=== PATIENT | male | born 1945 | race Caucasian/White ===

== ENCOUNTER 2018-08-11 20:53 | Inpatient (IN) ==
[2018-08-11] MEDS ORDERED: PIPERACILL/TAZOBAC CONSULT ACTIVE PRN (21:04)
[2018-08-11] MEDS ORDERED: VANCOMYCIN HCL 1,500 MG in SODIUM CHLORIDE 0.9% 500 ML IV ONE (21:04)
[2018-08-11] MEDS ORDERED: VANCOMYCIN CONSULT ACTIVE PRN (21:04)
[2018-08-11] MEDS ORDERED: PIPERACILLIN/TAZOBACTAM 4.5 GM/120 ML BAG IV ONE (21:04)
[2018-08-11] MEDS ORDERED: SODIUM CHLORIDE 0.9% 1000ML 2,000 ML IV ONE (21:14)
[2018-08-11] MEDS ORDERED: ACETAMINOPHEN 650 MG SUPP PR STA (21:25)
[2018-08-11 21:35] LABS: Basophils # (auto) 0.01 K/uL (0-0.2); Basophils % (auto) 0.1 %; Eosinophils # (auto) 0.03 K/uL (0-0.5); Eosinophils % (auto) 0.2 %; Hemoglobin 8.9 g/dL (14.0-18.0); Immature Granulocytes # (auto) 0.16 K/uL (0.00-0.02); Immature Granulocytes % (auto) 1.2 %; Lymphocytes # (auto) 0.38 K/uL (1.2-3.4); Mean Corpuscular Hgb Conc 30.7 g/dL (32-36); Mean Corpuscular Volume 86.1 fL (80-100); Mean Platelet Volume 9.4 fL (7.4-10.4); Monocytes # (auto) 0.25 K/uL (0.11-0.59); Monocytes % (auto) 1.9 %; Neutrophils # (auto) 12.05 K/uL (1.4-6.5); Neutrophils % (auto) 93.6 %; Platelet Count 394 K/uL (130-400); RDW Coefficient of Variation 17.3 % (11.5-14.5); RDW Standard Deviation 54.4 fL (36.4-46.3); Red Blood Count 3.37 M/uL (4.7-6.1); White Blood Count 12.88 K/uL (4.8-10.8)
[2018-08-11 21:40] LABS: iSTAT Hemoglobin 9.5 g/dl (14.0-18.0); iSTAT Ionized Calcium 1.08 mmol/l (1.12-1.32)
--- NOTE | 2018-08-11 21:51 | XRay Report ---
SINGLE VIEW PELVIS CLINICAL HISTORY: Sepsis. FINDINGS: 2 AP supine pelvic radiographs are obtained. Correlation is made with lumbar spine radiogra phs dated 11/21/2015. The examination is severely degraded by inability to properly position the patie nt. This degrades diagnostic utility. The skeletal structures are osteopenic. No fracture is clearly identified involving the bony pelvis but this is not well assessed. There is significant deformity at the left hip joint which is markedly flexed. The left proximal femur abuts the dermal surface. The r ight hip is not well evaluated. An IVC filter is in place. Lumbosacral spondylosis is noted. No bowel obstruction is identified. IMPRESSION: 1. Severely compromised examination due to inability to position the patient. This degrades diagnosti c utility. 2. No fracture is clearly identified. 3. Deformity is noted at the left hip joint which abuts the dermal surface. This is not well assessed . Electronically signed by: Prabhjot Sarmiento M.D. 08/11/2018 9:49 PM
--- NOTE | 2018-08-11 21:55 | XRay Report ---
SINGLE VIEW CHEST CLINICAL HISTORY: Sepsis. FINDINGS: 2 AP, portable, upright chest radiographs are compared to study dated 04/23/2018. The examin ation is severely degraded by portable technique and patient rotation. The heart is enlarged and the re is atherosclerotic calcification of the thoracic aorta. The pulmonary vasculature is noncongested. There is bibasilar scarring/atelectasis. No airspace consolidation or large pleural effusion is iden tified. No pneumothorax is seen. The skeletal structures are osteopenic. The bony thorax is grossly i ntact. Marked colonic fecal retention is noted in the upper abdomen. IMPRESSION: Cardiomegaly with no acute cardiopulmonary abnormality. Electronically signed by: Prabhjot Sarmiento M.D. 08/11/2018 9:53 PM
[2018-08-11 22:02] LABS: Alanine Aminotransferase 12 U/L (12-78); Albumin Globulin Ratio 0.3 (0.9-2); Albumin Level 1.4 gm/dl (3.4-5.0); Alkaline Phosphatase 158 U/L (45-117); Aspartate Aminotransferase 26 U/L (15-37); BUN Creatinine Ratio 31.2 (10-20); Bilirubin,Total 0.5 mg/dl (0.2-1); Blood Urea Nitrogen 45 mg/dl (7-18); Calcium 8.1 mg/dl (8.5-10.1); Carbon Dioxide 17 mmol/L (21-32); Chloride 106 mmol/L (98-107); Est GFR (African American) 56.3; Est GFR (Non-African American) 48.6; Globulin 5.2 gm/dl (2.5-4.0); Glucose 92 mg/dl (70-99); Partial Thromboplastin Ratio 1.7; Potassium 4.6 mmol/L (3.5-5.1); Prothrombin Time 28.8 Seconds (9.0-12.0); Sodium 138 mmol/L (136-145); Total Protein 6.6 gm/dl (6.4-8.2)
[2018-08-11 22:07] LABS: Partial Thromboplastin Time 45.1 Seconds (21.0-31.0)
--- NOTE | 2018-08-11 22:13 | CT Scan Report ---
CT SCAN OF THE BRAIN WITHOUT IV CONTRAST CLINICAL HISTORY: Change in mental status. COMPARISON STUDY: CT of the brain dated 11/22/2015. TECHNIQUE: Unenhanced axial CT scan of the brain is performed from the vertex to the skull base. A do se lowering technique was utilized adhering to the principles of ALARA. CT DOSE: 614.27 mGy.cm FINDINGS: Brain parenchyma: There are age-related involutional changes noting mild to moderate subcortical and periventricular microangiopathic change. There is no hemorrhage, mass effect, or evidence of acute t erritorial ischemia by CT criteria. Darden-white matter differentiation is preserved. No extra-axial fl uid collection is seen. Ventricles, sulci, cisterns: Prominent secondary to involutional change. Cavum septum pellucidum is i ncidentally noted. Intracranial vasculature: There is advanced atherosclerotic calcification of the cavernous carotid an d vertebral arteries. Calvarium: Unremarkable. Sinuses and mastoids: The visualized paranasal sinuses are clear. The mastoid air cells are well pneu matized. Orbits: The bony orbits are grossly intact. IMPRESSION: There is no hemorrhage, mass effect, or evidence of acute territorial ischemia by CT krista doshi. Electronically signed by: Prabhjot Sarmiento M.D. 08/11/2018 10:12 PM
[2018-08-11 22:33] LABS: Appearance Urine Cloudy (Clear); Color Urine Red; Protein Urine Positive (Negative); Specific Gravity Urine 1.024 (1.000-1.060)
[2018-08-11 22:37] LABS: Hyaline Casts Urine 0-5 /lpf (0-5); RBC Urine >30 /hpf (0-4)
[2018-08-11 22:38] LABS: Bacteria Urine Negative (Negative); WBC Urine >30 /hpf (0-5)
[2018-08-11 22:39] LABS: Echinocytes 1+; Schistocytes 1+
[2018-08-11] MEDS ORDERED: SODIUM CHLORIDE 0.9% 1000ML 1,000 ML IV ONE (22:51)
[2018-08-11 22:52] LABS: Base Excess VBG -5.2 mEq/L; HCO3 VBG 19 mmol/L; Oxygen Saturation VBG 85.2 %; PCO2 VBG 33 mmHg (38-50); PO2 VBG 54 mmHg; pH VBG 7.39 (7.36-7.41)
[2018-08-11 22:52] LABS: Magnesium 1.9 mg/dl (1.8-2.4)
--- NOTE | 2018-08-11 23:32 | History & Physical Report ---
Date of Service August 11, 2018 Assessment & Plan (1) Severe sepsis: SIRS plus lactic acid elevation plus ARF plus encephalopathy Secondary to decubitus wounds, bilateral hip osteomyelitis on CT initial read Likely incompletely treated infection hx right hip osteomyelitis sp surgery [facility] (04/2018) and antibiotic Rx until (2017) Patient unable to follow-up with [facility] specialists post procedure/antibiotic completion due to financial constraints/transportation difficulties as per family. ? 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 RE bilateral hip osteomyelitis (Patient family requesting for local specialist evaluation if possible given difficulty of transporting patient to [facility] to see specialists from patient's [facility] residence.) Wound care provider consult in a.m. RE decubiti wounds Appropriate to hold antihypertensives for now given borderline BP Hold Coumadin for now RE possible procedure; may need full reversal with hemoglobin drop/blood loss DVT prophylaxis. SCDs while Coumadin on hold if INR less than 2 DNR as per patient's previous wishes as per brother Mr. Dk Winters. (Contact numbers [phone], [phone]) Total critical time was 45 minutes. History of Present Illness Chief Complaint: Low blood pressure, altered mental status as per records Primary Care Provider: [facility] History obtained from patient, family, and records. Patient is not a reliable historian. Medical history significant for hypertension, schizoid personality/mood disorder status post ECT, PE DVT sp IVC filter placement on Coumadin, chronic anemia baseline hemoglobin 8-9, past history of C. difficile, chronic decubitus wounds, osteomyelitis of the right hip status post surgery, hypothyroidism, past tobacco abuse Patient admitted at [facility] February 2018 for septic shock secondary to extensive decubitus ulcers with maggot infiltration. Patient discharged to LTAC March 2018. Left lower extremity DVT noted during LTAC stay. Coumadin initiated. Patient transferred to [facility] in [place] April 2018. Right femoral neck noted to be exposed along w/ bilateral thigh buttock and lower extremity ulcers during stay at the [facility]. Patient subsequently transferred to [facility]. As per admission note, multiple skin ulcers noted on patient's lower extremities and right posterior rib. Right thigh wound was unstageable with R femoral head exposed through gaping wound, left thigh wound had left femoral head exposed. Patient admitted with a diagnosis of osteomyelitis and chronic wounds. Patient subsequently underwent I&D of decubiti wounds and right femoral head resection. Polymicrobial operative cultures grew Enterococcus species, MSSA, gram-negative rods and anaerobes. Patient completed ceftriaxone metronidazole and vancomycin antibiotic courses via PICC line until June 2018. Patient unable to follow-up with [facility] surgeon (Dr. Coelho) postop due to financial constraints posed by transportation difficulties from [place] to [place] as per patient's brother. As per patient's family, patient started on antibiotic for UTI the last few days (ESBL E. coli as per records.) Around dinnertime tonight at the heart side, patient noted to be hypotensive SBP 80s and febrile, temperature 101.7. Patient noted to be dusky in color and respirations shallow as per records. O2 sats 50s on room air as per records. Childs draining bright red blood/dark red clots of blood. At the ER, SBP noted to be 90-100s. IV Vancomycin and Zosyn given for sepsis. 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 Allergies Allergy/AdvReac Type Severity Reaction Status Date / Time iodine Allergy Unknown Unknown Verified 08/11/18 21:43 onion AdvReac Intermediate vomitting Verified 08/11/18 21:43 Home Medications Home Medications Medication Instructions Recorded Confirmed Type Saccharomyces boulardii [Florastor] 250 mg PO BID17 04/23/18 08/11/18 History acetaminophen 325 mg PO Q6H PRN MDD 3 GRAM/24 04/23/18 08/11/18 History HOURS bisacodyl [Dulcolax (bisacodyl)] 10 mg NM DIRECTED PRN 04/23/18 08/11/18 History cholestyramine (with sugar) 4 g PO BID17 04/23/18 08/11/18 History [Questran] divalproex 500 mg PO BID 04/23/18 08/11/18 History folic acid 1 mg PO QAM 04/23/18 08/11/18 History magnesium hydroxide [Milk of 30 ml PO DIRECTED PRN 04/23/18 08/11/18 History Magnesia] melatonin 3 mg PO HS 04/23/18 08/11/18 History oxycodone 5 mg PO Q6 04/23/18 08/11/18 History pantoprazole 40 mg PO QAM 04/23/18 08/11/18 History sodium phosphates [Fleet Enema] 118 ml NM DIRECTED PRN 04/23/18 08/11/18 History thiamine HCl (vitamin B1) 100 mg PO QAM 04/23/18 08/11/18 History tramadol 50 mg PO Q6H PRN 04/23/18 08/11/18 History 2 Daryl Hn Po 60 ml PO ACHS 08/11/18 08/11/18 History Liquid Protein Suppliment 60 ml PO BID17 08/11/18 08/11/18 History baclofen 5 mg PO TIDM 08/11/18 08/11/18 History ergocalciferol (vitamin D2) 50,000 unit PO WK 08/11/18 08/11/18 History [Vitamin D2] fentanyl 1 patch TRANSDERMAL Q72H 08/11/18 08/11/18 History ferrous sulfate 325 mg PO BID17 08/11/18 08/11/18 History metoprolol succinate 50 mg PO QAM 08/11/18 08/11/18 History vitamin B [id number] cit 1 tab PO QAM 08/11/18 08/11/18 History Past Med/Surg History Medical History Anxiety (Chronic) HTN (hypertension) (Chronic) Hypothyroidism (Chronic) GERD (gastroesophageal reflux disease) (Chronic) Anemia (Chronic) Schizoid personality disorder (Chronic) Myocardial infarction (Chronic) Dyslipidemia (Chronic) History of electroconvulsive therapy (Chronic) Bacteremia C. difficile colitis DVT (deep venous thrombosis) Pressure ulcer of ankle, right, unstageable Pressure ulcer of sacral region, stage 4 Surgical History History of appendectomy (Chronic) Family History Other Family history non-contributory Social History Current Living Situation: Personal Care Facility Current Living Situation Comment: [place] Feels Safe at Home: Hesitant to Answer Smoking Status: Unknown if ever smoked Communication Ability: Impaired Review of Systems Could not be reliably obtained Physical Exam 2 Vital Signs (Past 24 Hours): Last Vital Signs Temp 38.6 C H 08/11/18 23:04 Pulse 113 H 08/11/18 23:04 Resp 30 H 08/11/18 23:04 BP 103/59 L 08/11/18 23:04 Pulse Ox 100 08/11/18 23:04 Physical Exam: GENERAL: Comfortable, incoherent, no respiratory distress, cachectic, lying on the right lateral decubitus position SKIN: Pallor , warm HEENT: Pale palpebral conjunctivae, no ptosis, dry buccal mucosa NECK : Supple, no tenderness CHEST : Decreased breath sounds , no tenderness HEART : Tachycardic , no obvious murmurs ABDOMEN: Scaphoid abdomen , nontender EXTREMITIES : Dressing soaked with yellow drainage overlying left hip, minimal left hip tenderness NEUROLOGIC : Incoherent , no facial asymmetry, gait and stance not assessed Results & Data Laboratory Results Laboratory Results WBC 12.88 K/uL (4.8-10.8) H 08/11/18 21:16 RBC 3.37 M/uL (4.7-6.1) L 08/11/18 21:16 Hgb 8.9 g/dL (14.0-18.0) L 08/11/18 21:16 POC Hgb 9.5 g/dl (14.0-18.0) L 08/11/18 21:26 Hct 29.0 % (42-52) L 08/11/18 21:16 POC Hct 28 % (42-52) L 08/11/18 21:26 MCV 86.1 fL (80-100) 08/11/18 21:16 MCH 26.4 pg (25-34) 08/11/18 21:16 MCHC 30.7 g/dL (32-36) L 08/11/18 21:16 RDW Std Deviation 54.4 fL (36.4-46.3) H 08/11/18 21:16 RDW Coeff of Lucila 17.3 % (11.5-14.5) H 08/11/18 21:16 Plt Count 394 K/uL (130-400) 08/11/18 21:16 MPV 9.4 fL (7.4-10.4) 08/11/18 21:16 Immature Gran % (Auto) 1.2 % 08/11/18 21:16 Neut % (Auto) 93.6 % 08/11/18 21:16 Lymph % (Auto) 3.0 % 08/11/18 21:16 Clark % (Auto) 1.9 % 08/11/18 21:16 Eos % (Auto) 0.2 % 08/11/18 21:16 Baso % (Auto) 0.1 % 08/11/18 21:16 Immature Gran # (Auto) 0.16 K/uL (0.00-0.02) H 08/11/18 21:16 Neut # (Auto) 12.05 K/uL (1.4-6.5) H 08/11/18 21:16 Lymph # (Auto) 0.38 K/uL (1.2-3.4) L 08/11/18 21:16 Clark # (Auto) 0.25 K/uL (0.11-0.59) 08/11/18 21:16 Eos # (Auto) 0.03 K/uL (0-0.5) 08/11/18 21:16 Baso # (Auto) 0.01 K/uL (0-0.2) 08/11/18 21:16 Echinocytes 1+ 08/11/18 21:16 Acanthocytes (Spur) 1+ 08/11/18 21:16 Schistocytes 1+ 08/11/18 21:16 PT 28.8 Seconds (9.0-12.0) H 08/11/18 21:16 INR 3.0 (0.9-1.1) H 08/11/18 21:16 APTT 45.1 Seconds (21.0-31.0) H* 08/11/18 21:16 PTT Ratio 1.7 08/11/18 21:16 VBG pH 7.39 (7.36-7.41) 08/11/18 22:41 VBG pCO2 33 mmHg (38-50) L 08/11/18 22:41 VBG pO2 54 mmHg 08/11/18 22:41 VBG HCO3 19 mmol/L 08/11/18 22:41 VBG O2 Saturation 85.2 % 08/11/18 22:41 VBG Base Excess -5.2 mEq/L 08/11/18 22:41 POC Sodium 142 mEq/L (135-144) 08/11/18 21:26 Sodium 138 mmol/L (136-145) 08/11/18 21:16 POC Potassium 5.0 mEq/L (3.3-5.0) 08/11/18 21:26 Potassium 4.6 mmol/L (3.5-5.1) 08/11/18 21:16 POC Chloride 103 mEq/L (101-112) 08/11/18 21:26 Chloride 106 mmol/L (98-107) 08/11/18 21:16 Carbon Dioxide 17 mmol/L (21-32) L 08/11/18 21:16 POC Total CO2 21 mEq/l (24-31) L 08/11/18 21:26 Anion Gap 16.0 (3-11) H 08/11/18 21:16 POC Anion Gap 24.0 mmol/L (16-25) 08/11/18 21:26 POC BUN 38 mg/dl (7-18) H 08/11/18 21:26 BUN 45 mg/dl (7-18) H 08/11/18 21:16 Creatinine 1.43 mg/dl (0.6-1.4) H 08/11/18 21:16 POC Creatinine 1.2 mg/dl (0.6-1.3) 08/11/18 21:26 Est Cr Clr Drug Dosing Not Reportable 08/11/18 21:16 Est GFR ( Amer) 56.3 08/11/18 21:16 Est GFR (Non-Af Amer) 48.6 08/11/18 21:16 BUN/Creatinine Ratio 31.2 (10-20) H 08/11/18 21:16 Glucose 92 mg/dl (70-99) 08/11/18 21:16 POC Glucose (other) 93 mg/dl (70-99) 08/11/18 21:26 Lactate 10.7 mmol/L (0.4-2.0) H* 08/11/18 21:08 Calcium 8.1 mg/dl (8.5-10.1) L 08/11/18 21:16 POC Ioniz Calcium Fam 1.08 mmol/l (1.12-1.32) L 08/11/18 21:26 Magnesium 1.9 mg/dl (1.8-2.4) 08/11/18 21:16 Total Bilirubin 0.5 mg/dl (0.2-1) 08/11/18 21:16 AST 26 U/L (15-37) 08/11/18 21:16 ALT 12 U/L (12-78) 08/11/18 21:16 Alkaline Phosphatase 158 U/L (45-117) H 08/11/18 21:16 Total Protein 6.6 gm/dl (6.4-8.2) 08/11/18 21:16 Albumin 1.4 gm/dl (3.4-5.0) L 08/11/18 21:16 Globulin 5.2 gm/dl (2.5-4.0) H 08/11/18 21:16 Albumin/Globulin Ratio 0.3 (0.9-2) L 08/11/18 21:16 TSH 14.300 uIu/ml (0.300-4.500) H 08/11/18 21:16 Specimen Hemolysis 08/11/18 21:16 Urine Color Red 08/11/18 22:00 Urine Appearance Cloudy (Clear) H 08/11/18 22:00 Urine pH (4.5-7.5) 08/11/18 22:00 Ur Specific Ranger 1.024 (1.000-1.060) 08/11/18 22:00 Urine Protein Positive (Negative) H 08/11/18 22:00 Urine Glucose (UA) (Negative) 08/11/18 22:00 Urine Ketones (Negative) 08/11/18 22:00 Urine Blood (Negative) 08/11/18 22:00 Urine Nitrite (Negative) 08/11/18 22:00 Urine Bilirubin (Negative) 08/11/18 22:00 Urine Urobilinogen (Negative) 08/11/18 22:00 Ur Leukocyte Esterase (Negative) 08/11/18 22:00 Urine RBC >30 /hpf (0-4) H 08/11/18 22:00 Urine WBC >30 /hpf (0-5) H 08/11/18 22:00 Ur Epithelial Cells 0-5 /lpf (0-5) 08/11/18 22:00 Urine Bacteria Negative (Negative) 08/11/18 22:00 Hyaline Casts 0-5 /lpf (0-5) 08/11/18 22:00 Valproic Acid 37 mcg/ml (50-100) L 08/11/18 20:[address] head : No hemorrhage Chest x-ray: Cardiomegaly EKG as per my interpretation: Rate 115, sinus tachycardia, LAD, LAFB, RBBB, ST depression lateral leads CT abdomen pelvis initial read: Mild right hydroureteronephrosis, urinary catheter partially visualized at the penile prosthesis region with regional gas surrounding catheter and soft tissues. Impacted fecal material in the distal rectosigmoid colon with distention of the rectum, no high-grade bowel obstruction. Gallbladder wall calcification. Destruction of the right femoral head and proximal femur with extensive dystrophic calcification, gas within the right hip joint adjacent to the acetabulum thought to be tracking from the posterior decubitus ulceration. Gas tracking noted along the left greater trochanter and adjacent inferior and posterior decubitus ulceration.
[2018-08-11 23:54] LABS: Allen Test Pos (Pos); HCO3 ABG 20 mmol/L (19-24); Oxygen Saturation ABG 92.6 % (90-95); PCO2 ABG 30 mmHg (35-46); PO2 ABG 79 mm/Hg (80-95); pH ABG 7.45 (7.35-7.45)
[2018-08-12 00:31] LABS: Creatine Kinase 160 U/L (39-308)
[2018-08-12] MEDS ORDERED: SODIUM CHLORIDE 0.9% 1000ML 1,000 ML IV STA ×2 (01:13→03:14)
[2018-08-12] MEDS ORDERED: TRAMADOL HCL 50 MG TABLET PO PRN (01:23)
[2018-08-12] MEDS ORDERED: ACETAMINOPHEN 325 MG TAB PO PRN (01:23)
[2018-08-12] MEDS ORDERED: PROCHLORPERAZINE 5 MG in SYRINGE 4 ML IV PRN (01:23)
[2018-08-12] MEDS ORDERED: HYDROmorphone INJ 0.5 MG/0.5 ML SYR IV PRN (01:23)
--- NOTE | 2018-08-12 01:56 | Emergency Department Note ---
Entered by Elio Barnes acting as a scribe for John Albright DO History of Present Illness General Chief complaint: Fever Time Seen by Provider: 08/11/18 20:59 Source: EMS History of Present Illness Onset (ago): hour(s) (prior to arrival) Location: head (unresponsiveness) Severity: severe Pain Consistency: + other (episode) Associated symptoms: + other (not breathing well) The patient is a 73 year old M who presents to the Emergency Room with complaints of an episode of unresponsiveness starting prior to arrival. EMS provided the patients HPI. EMS states that the patient is not breathing well. EMS notes that the patient normally can answer questions with a yes or a no. EMS states that today the patient would not respond to anything and would not respond yes or no. The patients brother was called on the phone and he states that the patients DNR was not signed. He notes that the patient would want everything done. The HPI is limited due to the patients unresponsiveness. Home Medications Home Medications Medication Instructions Recorded Confirmed Type Saccharomyces boulardii [Florastor] 250 mg PO BID17 04/23/18 08/11/18 History acetaminophen 325 mg PO Q6H PRN MDD 3 GRAM/24 04/23/18 08/11/18 History HOURS bisacodyl [Dulcolax (bisacodyl)] 10 mg LA DIRECTED PRN 04/23/18 08/11/18 History cholestyramine (with sugar) 4 g PO BID17 04/23/18 08/11/18 History [Questran] divalproex 500 mg PO BID 04/23/18 08/11/18 History folic acid 1 mg PO QAM 04/23/18 08/11/18 History magnesium hydroxide [Milk of 30 ml PO DIRECTED PRN 04/23/18 08/11/18 History Magnesia] melatonin 3 mg PO HS 04/23/18 08/11/18 History oxycodone 5 mg PO Q6 04/23/18 08/11/18 History pantoprazole 40 mg PO QAM 04/23/18 08/11/18 History sodium phosphates [Fleet Enema] 118 ml LA DIRECTED PRN 04/23/18 08/11/18 History thiamine HCl (vitamin B1) 100 mg PO QAM 04/23/18 08/11/18 History tramadol 50 mg PO Q6H PRN 04/23/18 08/11/18 History 2 Daryl [address] Po 60 ml PO ACHS 08/11/18 08/11/18 History Liquid Protein Suppliment 60 ml PO BID17 08/11/18 08/11/18 History baclofen 5 mg PO TIDM 08/11/18 08/11/18 History ergocalciferol (vitamin D2) 50,000 unit PO WK 08/11/18 08/11/18 History [Vitamin D2] fentanyl 1 patch TRANSDERMAL Q72H 08/11/18 08/11/18 History ferrous sulfate 325 mg PO BID17 08/11/18 08/11/18 History metoprolol succinate 50 mg PO QAM 08/11/18 08/11/18 History vitamin B [id number] cit 1 tab PO QAM 08/11/18 08/11/18 History Allergies Allergy/AdvReac Type Severity Reaction Status Date / Time iodine Allergy Unknown Unknown Verified 08/11/18 21:43 onion AdvReac Intermediate vomitting Verified 08/11/18 21:43 Past Med/Surg History Medical History Anxiety (Chronic) HTN (hypertension) (Chronic) Hypothyroidism (Chronic) GERD (gastroesophageal reflux disease) (Chronic) Anemia (Chronic) Schizoid personality disorder (Chronic) Myocardial infarction (Chronic) Dyslipidemia (Chronic) History of electroconvulsive therapy (Chronic) Bacteremia C. difficile colitis DVT (deep venous thrombosis) Pressure ulcer of ankle, right, unstageable Pressure ulcer of sacral region, stage 4 Surgical History History of appendectomy (Chronic) Family History Other Family history non-contributory Social History Feels Safe at Home: Hesitant to Answer Smoking Status: Unknown if ever smoked Review of Systems See HPI for pertinent positives & negatives. and A total of 10 systems reviewed and were otherwise negative ROS is limited due to patient's unresponsiveness. Physical Exam Vital Signs Vital Signs - 24 hr 08/11/18 20:44 08/11/18 22:06 08/11/18 22:30 Temperature 39.8 C H Temperature Source Rectal Sepsis Recent Fever Within 48 Hours Yes Sepsis New/Unexplained Change in Mental Status Yes Sepsis Action Taken by Nursing Physician Notified Pulse Rate 138 H 109 H Pulse Rate [Apical] 109 H 107 H Respiratory Rate 42 H 25 H 25 H Respiratory Effort / Characteristics Non-Labored Non-Labored Spontaneous Non-Labored Spontaneous Respiratory Depth Normal Normal Normal Blood Pressure 130/80 Blood Pressure [Right Arm] 95/59 L Blood Pressure Mean 96 Blood Pressure Mean [Right Arm] 71 Blood Pressure Position [Right Arm] Lying Pulse Oximetry 98 100 100 Oxygen Delivery Method Room Air Non-rebreather Non-rebreather Non-rebreather Oxygen Flow Rate 10 08/11/18 22:51 08/11/18 23:04 08/11/18 23:05 Temperature 38.6 C H Temperature Source Rectal Sepsis Recent Fever Within 48 Hours Sepsis New/Unexplained Change in Mental Status Sepsis Action Taken by Nursing Pulse Rate 111 H 112 H Pulse Rate [Apical] 113 H Respiratory Rate 30 H 30 H 31 H Respiratory Effort / Characteristics Non-Labored Spontaneous Respiratory Depth Normal Blood Pressure 107/61 103/59 L Blood Pressure [Right Arm] 103/59 L Blood Pressure Mean 76 73 Blood Pressure Mean [Right Arm] 73 Blood Pressure Position [Right Arm] Lying Pulse Oximetry 99 100 100 Oxygen Delivery Method Nasal Cannula Oxygen Flow Rate 5 08/11/18 23:33 08/12/18 00:01 08/12/18 00:10 Temperature Temperature Source Sepsis Recent Fever Within 48 Hours Sepsis New/Unexplained Change in Mental Status Sepsis Action Taken by Nursing Pulse Rate 113 H 118 H 114 H Pulse Rate [Apical] Respiratory Rate 28 H 28 H 24 Respiratory Effort / Characteristics Respiratory Depth Blood Pressure 98/42 L 99/59 L Blood Pressure [Right Arm] Blood Pressure Mean 60 72 Blood Pressure Mean [Right Arm] Blood Pressure Position [Right Arm] Pulse Oximetry 97 96 96 Oxygen Delivery Method Oxygen Flow Rate 08/12/18 00:40 08/12/18 01:00 Temperature 38.7 C H 38.7 C H Temperature Source Rectal Rectal Sepsis Recent Fever Within 48 Hours Sepsis New/Unexplained Change in Mental Status Sepsis Action Taken by Nursing Pulse Rate 112 H Pulse Rate [Apical] Respiratory Rate 30 H Respiratory Effort / Characteristics Respiratory Depth Blood Pressure 96/56 L Blood Pressure [Right Arm] Blood Pressure Mean Blood Pressure Mean [Right Arm] Blood Pressure Position [Right Arm] Pulse Oximetry 97 Oxygen Delivery Method Nasal Cannula Oxygen Flow Rate 4 GENERAL: Laying on left side in position, alert, ill-appearing, on non- rebreather, moaning to painful stimuli EYE EXAM: normal conjunctiva. PERRL and EOM's grossly intact. OROPHARYNX: no exudate, no erythema, lips, buccal mucosa, and tongue normal and mucous membranes are dry NECK: supple, no nuchal rigidity, no adenopathy, non-tender LUNGS: Clear to auscultation. Normal chest wall mechanics HEART: S1 normal and S2 normal, tachycardic ABDOMEN: abdomen soft, non-tender, normo-active bowel, sounds, no masses, no rebound or guarding. BACK: Back is symmetrical on inspection and there is no deformity, no midline tenderness, no CVA tenderness. SKIN: no rashes and no bruising UPPER EXTREMITIES: upper extremities are moving spontaneously. LOWER EXTREMITIES: No pitting edema. Right leg at 90 degree angle with protruding femur, necrosis on the inferior aspect, several open wounds on shins NEURO EXAM: Awake, shakes head yes or no intermittently. Moving upper extremities spontaneously. Lower extremities are held in flexion without movement. Course ED COURSE: Vital signs were reviewed and showed hypotension and tachycardia. The patients medical record was reviewed The above diagnostic studies were performed and reviewed. ED treatments and interventions as stated above. 2052: The patient was evaluated in room B1. A complete history and physical examination was performed. 2148: Upon reevaluation, the patient's blood pressure is coming down. 2300: The patient is still on a non-rebreather. 5: I reviewed the patient's case with Dr. Leonard King, [facility] Hospitalist. He will evaluate the patient for further management. Based on the patients age, coexisting illnesses, exam and lab findings the decision to treat as an inpatient was made. The patient remained stable while under my care. The patient will be evaluated for further management. Administered Medications Miscellaneous Information (Consult) 1 ea N/A UD PRN PRN Reason: Consult Stop: 09/10/18 21:03 Last Admin: 08/11/18 21:14 Dose: 1 ea Discontinued Medications Acetaminophen (Tylenol) 650 mg LA NOW STA Stop: 08/11/18 21:26 Last Admin: 08/11/18 21:35 Dose: 650 mg Piperacillin Sod/Tazobactam Sod (Zosyn) 4.5 gm in 120 mls @ 240 mls/hr IV NOW ONE Stop: 08/11/18 21:33 Last Infusion: 08/11/18 21:56 Dose: 0 mls/hr Admin: 08/11/18 21:14 Dose: 240 mls/hr Vancomycin HCl 1,500 mg/ (Sodium Chloride) 530 mls @ 200 mls/hr IV NOW ONE Stop: 08/11/18 23:42 Last Infusion: 08/12/18 01:01 Dose: 0 mls/hr Admin: 08/11/18 22:02 Dose: 200 mls/hr Sodium Chloride (Nss 1000ml) 2,000 mls @ 999 mls/hr IV .Q2H1M ONE Stop: 08/11/18 23:14 Last Infusion: 08/11/18 21:56 Dose: Admin: 08/11/18 21:35 Dose: 999 mls/hr Sodium Chloride (Nss 1000ml) 1,000 mls @ 999 mls/hr IV .Q1H1M ONE Stop: 08/11/18 23:51 Last Infusion: 08/12/18 00:41 Dose: 0 mls/hr Admin: 08/11/18 23:33 Dose: 999 mls/hr Medical Decision Making Differential Diagnosis Differential diagnosis includes etiologies such as sepsis, UTI, pneumonia, metabolic, electrolyte abnormalities, cardiac sources, intracerebral event, toxicologic, neurologic, as well as others were entertained. Medical Records Attestation: I reviewed the patient's medical records. Home Medications Current Medication List: was personally reviewed by me Laboratory Data Attestation: I reviewed the patient's lab results. Result diagrams: 08/11/18 21:16 08/11/18 21:16 Lab Results 08/11/18 08/11/18 08/11/18 Range/Units 20:42 21:08 21:16 WBC 12.88 H (4.8-10.8) K/uL RBC 3.37 L (4.7-6.1) M/uL Hgb 8.9 L (14.0-18.0) g/dL POC Hgb (14.0-18.0) g/dl Hct 29.0 L (42-52) % POC Hct (42-52) % MCV 86.1 (80-100) fL MCH 26.4 (25-34) pg MCHC 30.7 L (32-36) g/dL RDW Std Deviation 54.4 H (36.4-46.3) fL RDW Coeff of Lucila 17.3 H (11.5-14.5) % Plt Count 394 (130-400) K/uL MPV 9.4 (7.4-10.4) fL Immature Gran % (Auto) 1.2 % Neut % (Auto) 93.6 % Lymph % (Auto) 3.0 % [place] % (Auto) 1.9 % Eos % (Auto) 0.2 % Baso % (Auto) 0.1 % Immature Gran # (Auto) 0.16 H (0.00-0.02) K/uL Neut # (Auto) 12.05 H (1.4-6.5) K/uL Lymph # (Auto) 0.38 L (1.2-3.4) K/uL [place] # (Auto) 0.25 (0.11-0.59) K/uL Eos # (Auto) 0.03 (0-0.5) K/uL Baso # (Auto) 0.01 (0-0.2) K/uL Echinocytes 1+ Acanthocytes (Spur) 1+ Schistocytes 1+ PT (9.0-12.0) Seconds INR (0.9-1.1) APTT (21.0-31.0) Seconds PTT Ratio ABG pH (7.35-7.45) ABG pCO2 (35-46) mmHg ABG pO2 (80-95) mm/Hg ABG HCO3 (19-24) mmol/L ABG O2 Saturation (90-95) % ABG Base Excess (-9-1.8) mEq/L Jean Test (Pos) VBG pH (7.36-7.41) VBG pCO2 (38-50) mmHg VBG pO2 mmHg VBG HCO3 mmol/L VBG O2 Saturation % VBG Base Excess mEq/L Oxygen Given POC Sodium (135-144) mEq/L Sodium (136-145) mmol/L POC Potassium (3.3-5.0) mEq/L Potassium (3.5-5.1) mmol/L POC Chloride (101-112) mEq/L Chloride (98-107) mmol/L Carbon Dioxide (21-32) mmol/L POC Total CO2 (24-31) mEq/l Anion Gap (3-11) POC Anion Gap (16-25) mmol/L POC BUN (7-18) mg/dl BUN (7-18) mg/dl Creatinine (0.6-1.4) mg/dl POC Creatinine (0.6-1.3) mg/dl Est Cr Clr Drug Dosing Est GFR ( Amer) Est GFR (Non-Af Amer) BUN/Creatinine Ratio (10-20) Glucose (70-99) mg/dl POC Glucose (other) (70-99) mg/dl Lactate 10.7 H* (0.4-2.0) mmol/L Calcium (8.5-10.1) mg/dl POC Ioniz Calcium Fam (1.12-1.32) mmol/l Magnesium (1.8-2.4) mg/dl Total Bilirubin (0.2-1) mg/dl AST (15-37) U/L ALT (12-78) U/L Alkaline Phosphatase (45-117) U/L Total Creatine Kinase (39-308) U/L Total Protein (6.4-8.2) gm/dl Albumin (3.4-5.0) gm/dl Globulin (2.5-4.0) gm/dl Albumin/Globulin Ratio (0.9-2) TSH (0.300-4.500) uIu/ml Specimen Hemolysis Urine Color Urine Appearance (Clear) Urine pH (4.5-7.5) Ur Specific [place] (1.000-1.060) Urine Protein (Negative) Urine Glucose (UA) (Negative) Urine Ketones (Negative) Urine Blood (Negative) Urine Nitrite (Negative) Urine Bilirubin (Negative) Urine Urobilinogen (Negative) Ur Leukocyte Esterase (Negative) Urine RBC (0-4) /hpf Urine WBC (0-5) /hpf Ur Epithelial Cells (0-5) /lpf Urine Bacteria (Negative) Hyaline Casts (0-5) /lpf Valproic Acid 37 L (50-100) mcg/ml 08/11/18 08/11/18 08/11/18 Range/Units 21:16 21:16 21:26 WBC (4.8-10.8) K/uL RBC (4.7-6.1) M/uL Hgb (14.0-18.0) g/dL POC Hgb 9.5 L (14.0-18.0) g/dl Hct (42-52) % POC Hct 28 L (42-52) % MCV (80-100) fL MCH (25-34) pg MCHC (32-36) g/dL RDW Std Deviation (36.4-46.3) fL RDW Coeff of Lucila (11.5-14.5) % Plt Count (130-400) K/uL MPV (7.4-10.4) fL Immature Gran % (Auto) % Neut % (Auto) % Lymph % (Auto) % [place] % (Auto) % Eos % (Auto) % Baso % (Auto) % Immature Gran # (Auto) (0.00-0.02) K/uL Neut # (Auto) (1.4-6.5) K/uL Lymph # (Auto) (1.2-3.4) K/uL [place] # (Auto) (0.11-0.59) K/uL Eos # (Auto) (0-0.5) K/uL Baso # (Auto) (0-0.2) K/uL Echinocytes Acanthocytes (Spur) Schistocytes PT 28.8 H (9.0-12.0) Seconds INR 3.0 H (0.9-1.1) APTT 45.1 H* (21.0-31.0) Seconds PTT Ratio 1.7 ABG pH (7.35-7.45) ABG pCO2 (35-46) mmHg ABG pO2 (80-95) mm/Hg ABG HCO3 (19-24) mmol/L ABG O2 Saturation (90-95) % ABG Base Excess (-9-1.8) mEq/L Jean Test (Pos) VBG pH (7.36-7.41) VBG pCO2 (38-50) mmHg VBG pO2 mmHg VBG HCO3 mmol/L VBG O2 Saturation % VBG Base Excess mEq/L Oxygen Given POC Sodium 142 (135-144) mEq/L Sodium 138 (136-145) mmol/L POC Potassium 5.0 (3.3-5.0) mEq/L Potassium 4.6 (3.5-5.1) mmol/L POC Chloride 103 (101-112) mEq/L Chloride 106 (98-107) mmol/L Carbon Dioxide 17 L (21-32) mmol/L POC Total CO2 21 L (24-31) mEq/l Anion Gap 16.0 H (3-11) POC Anion Gap 24.0 (16-25) mmol/L POC BUN 38 H (7-18) mg/dl BUN 45 H (7-18) mg/dl Creatinine 1.43 H (0.6-1.4) mg/dl POC Creatinine 1.2 (0.6-1.3) mg/dl Est Cr Clr Drug Dosing Not Reportable Est GFR ( Amer) 56.3 Est GFR (Non-Af Amer) 48.6 BUN/Creatinine Ratio 31.2 H (10-20) Glucose 92 (70-99) mg/dl POC Glucose (other) 93 (70-99) mg/dl Lactate (0.4-2.0) mmol/L Calcium 8.1 L (8.5-10.1) mg/dl POC Ioniz Calcium Fam 1.08 L (1.12-1.32) mmol/l Magnesium 1.9 (1.8-2.4) mg/dl Total Bilirubin 0.5 (0.2-1) mg/dl AST 26 (15-37) U/L ALT 12 (12-78) U/L Alkaline Phosphatase 158 H (45-117) U/L Total Creatine Kinase 160 (39-308) U/L Total Protein 6.6 (6.4-8.2) gm/dl Albumin 1.4 L (3.4-5.0) gm/dl Globulin 5.2 H (2.5-4.0) gm/dl Albumin/Globulin Ratio 0.3 L (0.9-2) TSH 14.300 H (0.300-4.500) uIu/ml Specimen Hemolysis Urine Color Urine Appearance (Clear) Urine pH (4.5-7.5) Ur Specific [place] (1.000-1.060) Urine Protein (Negative) Urine Glucose (UA) (Negative) Urine Ketones (Negative) Urine Blood (Negative) Urine Nitrite (Negative) Urine Bilirubin (Negative) Urine Urobilinogen (Negative) Ur Leukocyte Esterase (Negative) Urine RBC (0-4) /hpf Urine WBC (0-5) /hpf Ur Epithelial Cells (0-5) /lpf Urine Bacteria (Negative) Hyaline Casts (0-5) /lpf Valproic Acid (50-100) mcg/ml 08/11/18 08/11/18 08/11/18 Range/Units 22:00 22:41 23:44 WBC (4.8-10.8) K/uL RBC (4.7-6.1) M/uL Hgb (14.0-18.0) g/dL POC Hgb (14.0-18.0) g/dl Hct (42-52) % POC Hct (42-52) % MCV (80-100) fL MCH (25-34) pg MCHC (32-36) g/dL RDW Std Deviation (36.4-46.3) fL RDW Coeff of Lucila (11.5-14.5) % Plt Count (130-400) K/uL MPV (7.4-10.4) fL Immature Gran % (Auto) % Neut % (Auto) % Lymph % (Auto) % [place] % (Auto) % Eos % (Auto) % Baso % (Auto) % Immature Gran # (Auto) (0.00-0.02) K/uL Neut # (Auto) (1.4-6.5) K/uL Lymph # (Auto) (1.2-3.4) K/uL [place] # (Auto) (0.11-0.59) K/uL Eos # (Auto) (0-0.5) K/uL Baso # (Auto) (0-0.2) K/uL Echinocytes Acanthocytes (Spur) Schistocytes PT (9.0-12.0) Seconds INR (0.9-1.1) APTT (21.0-31.0) Seconds PTT Ratio ABG pH (7.35-7.45) ABG pCO2 (35-46) mmHg ABG pO2 (80-95) mm/Hg ABG HCO3 (19-24) mmol/L ABG O2 Saturation (90-95) % ABG Base Excess (-9-1.8) mEq/L Jean Test (Pos) VBG pH 7.39 (7.36-7.41) VBG pCO2 33 L (38-50) mmHg VBG pO2 54 mmHg VBG HCO3 19 mmol/L VBG O2 Saturation 85.2 % VBG Base Excess -5.2 mEq/L Oxygen Given POC Sodium (135-144) mEq/L Sodium (136-145) mmol/L POC Potassium (3.3-5.0) mEq/L Potassium (3.5-5.1) mmol/L POC Chloride (101-112) mEq/L Chloride (98-107) mmol/L Carbon Dioxide (21-32) mmol/L POC Total CO2 (24-31) mEq/l Anion Gap (3-11) POC Anion Gap (16-25) mmol/L POC BUN (7-18) mg/dl BUN (7-18) mg/dl Creatinine (0.6-1.4) mg/dl POC Creatinine (0.6-1.3) mg/dl Est Cr Clr Drug Dosing Est GFR ( Amer) Est GFR (Non-Af Amer) BUN/Creatinine Ratio (10-20) Glucose (70-99) mg/dl POC Glucose (other) (70-99) mg/dl Lactate 3.8 H* (0.4-2.0) mmol/L Calcium (8.5-10.1) mg/dl POC Ioniz Calcium Fam (1.12-1.32) mmol/l Magnesium (1.8-2.4) mg/dl Total Bilirubin (0.2-1) mg/dl AST (15-37) U/L ALT (12-78) U/L Alkaline Phosphatase (45-117) U/L Total Creatine Kinase (39-308) U/L Total Protein (6.4-8.2) gm/dl Albumin (3.4-5.0) gm/dl Globulin (2.5-4.0) gm/dl Albumin/Globulin Ratio (0.9-2) TSH (0.300-4.500) uIu/ml Specimen Hemolysis Urine Color Red Urine Appearance Cloudy H (Clear) Urine pH (4.5-7.5) Ur Specific [place] 1.024 (1.000-1.060) Urine Protein Positive H (Negative) Urine Glucose (UA) (Negative) Urine Ketones (Negative) Urine Blood (Negative) Urine Nitrite (Negative) Urine Bilirubin (Negative) Urine Urobilinogen (Negative) Ur Leukocyte Esterase (Negative) Urine RBC >30 H (0-4) /hpf Urine WBC >30 H (0-5) /hpf Ur Epithelial Cells 0-5 (0-5) /lpf Urine Bacteria Negative (Negative) Hyaline Casts 0-5 (0-5) /lpf Valproic Acid (50-100) mcg/ml 01/06/19 Range/Units 23:44 WBC (4.8-10.8) K/uL RBC (4.7-6.1) M/uL Hgb (14.0-18.0) g/dL POC Hgb (14.0-18.0) g/dl Hct (42-52) % POC Hct (42-52) % MCV (80-100) fL MCH (25-34) pg MCHC (32-36) g/dL RDW Std Deviation (36.4-46.3) fL RDW Coeff of Lucila (11.5-14.5) % Plt Count (130-400) K/uL MPV (7.4-10.4) fL Immature Gran % (Auto) % Neut % (Auto) % Lymph % (Auto) % [place] % (Auto) % Eos % (Auto) % Baso % (Auto) % Immature Gran # (Auto) (0.00-0.02) K/uL Neut # (Auto) (1.4-6.5) K/uL Lymph # (Auto) (1.2-3.4) K/uL [place] # (Auto) (0.11-0.59) K/uL Eos # (Auto) (0-0.5) K/uL Baso # (Auto) (0-0.2) K/uL Echinocytes Acanthocytes (Spur) Schistocytes PT (9.0-12.0) Seconds INR (0.9-1.1) APTT (21.0-31.0) Seconds PTT Ratio ABG pH 7.45 (7.35-7.45) ABG pCO2 30 L (35-46) mmHg ABG pO2 79 L (80-95) mm/Hg ABG HCO3 20 (19-24) mmol/L ABG O2 Saturation 92.6 (90-95) % ABG Base Excess -3.4 (-9-1.8) mEq/L Jean Test Pos (Pos) VBG pH (7.36-7.41) VBG pCO2 (38-50) mmHg VBG pO2 mmHg VBG HCO3 mmol/L VBG O2 Saturation % VBG Base Excess mEq/L Oxygen Given RA POC Sodium (135-144) mEq/L Sodium (136-145) mmol/L POC Potassium (3.3-5.0) mEq/L Potassium (3.5-5.1) mmol/L POC Chloride (101-112) mEq/L Chloride (98-107) mmol/L Carbon Dioxide (21-32) mmol/L POC Total CO2 (24-31) mEq/l Anion Gap (3-11) POC Anion Gap (16-25) mmol/L POC BUN (7-18) mg/dl BUN (7-18) mg/dl Creatinine (0.6-1.4) mg/dl POC Creatinine (0.6-1.3) mg/dl Est Cr Clr Drug Dosing Est GFR ( Amer) Est GFR (Non-Af Amer) BUN/Creatinine Ratio (10-20) Glucose (70-99) mg/dl POC Glucose (other) (70-99) mg/dl Lactate (0.4-2.0) mmol/L Calcium (8.5-10.1) mg/dl POC Ioniz Calcium Fam (1.12-1.32) mmol/l Magnesium (1.8-2.4) mg/dl Total Bilirubin (0.2-1) mg/dl AST (15-37) U/L ALT (12-78) U/L Alkaline Phosphatase (45-117) U/L Total Creatine Kinase (39-308) U/L Total Protein (6.4-8.2) gm/dl Albumin (3.4-5.0) gm/dl Globulin (2.5-4.0) gm/dl Albumin/Globulin Ratio (0.9-2) TSH (0.300-4.500) uIu/ml Specimen Hemolysis Urine Color Urine Appearance (Clear) Urine pH (4.5-7.5) Ur Specific [place] (1.000-1.060) Urine Protein (Negative) Urine Glucose (UA) (Negative) Urine Ketones (Negative) Urine Blood (Negative) Urine Nitrite (Negative) Urine Bilirubin (Negative) Urine Urobilinogen (Negative) Ur Leukocyte Esterase (Negative) Urine RBC (0-4) /hpf Urine WBC (0-5) /hpf Ur Epithelial Cells (0-5) /lpf Urine Bacteria (Negative) Hyaline Casts (0-5) /lpf Valproic Acid (50-100) mcg/ml Imaging Data Radiologist's Impression: Radiology results as stated below per my review and the radiologist's interpretation: CT SCAN OF THE BRAIN WITHOUT IV CONTRAST CLINICAL HISTORY: Change in mental status. COMPARISON STUDY: CT of the brain dated 11/22/2015. TECHNIQUE: Unenhanced axial CT scan of the brain is performed from the vertex to the skull base. A dose lowering technique was utilized adhering to the principles of ALARA. CT DOSE: 614.27 mGy.cm FINDINGS: Brain parenchyma: There are age-related involutional changes noting mild to moderate subcortical and periventricular microangiopathic change. There is no hemorrhage, mass effect, or evidence of acute territorial ischemia by CT criteria. Darden-white matter differentiation is preserved. No extra-axial fluid collection is seen. Ventricles, sulci, cisterns: Prominent secondary to involutional change. Cavum septum pellucidum is incidentally noted. Intracranial vasculature: There is advanced atherosclerotic calcification of the cavernous carotid and vertebral arteries. Calvarium: Unremarkable. Sinuses and mastoids: The visualized paranasal sinuses are clear. The mastoid air cells are well pneumatized. Orbits: The bony orbits are grossly intact. IMPRESSION: There is no hemorrhage, mass effect, or evidence of acute territorial ischemia by CT criteria. Electronically signed by: Prabhjot Sarmiento M.D. 08/11/2018 10:12 PM SINGLE VIEW CHEST CLINICAL HISTORY: Sepsis. FINDINGS: 2 AP, portable, upright chest radiographs are compared to study dated 04/23/2018. The examination is severely degraded by portable technique and patient rotation. The heart is enlarged and there is atherosclerotic calcification of the thoracic aorta. The pulmonary vasculature is noncongested. There is bibasilar scarring/atelectasis. No airspace consolidation or large pleural effusion is identified. No pneumothorax is seen. The skeletal structures are osteopenic. The bony thorax is grossly intact. Marked colonic fecal retention is noted in the upper abdomen. IMPRESSION: Cardiomegaly with no acute cardiopulmonary abnormality. Electronically signed by: Prabhjot Sarmiento M.D. 08/11/2018 9:53 PM SINGLE VIEW PELVIS CLINICAL HISTORY: Sepsis. FINDINGS: 2 AP supine pelvic radiographs are obtained. Correlation is made with lumbar spine radiographs dated 11/21/2015. The examination is severely degraded by inability to properly position the patient. This degrades diagnostic utility. The skeletal structures are osteopenic. No fracture is clearly identified involving the bony pelvis but this is not well assessed. There is significant deformity at the left hip joint which is markedly flexed. The left proximal femur abuts the dermal surface. The right hip is not well evaluated. An IVC filter is in place. Lumbosacral spondylosis is noted. No bowel obstruction is identified. IMPRESSION: 1. Severely compromised examination due to inability to position the patient. This degrades diagnostic utility. 2. No fracture is clearly identified. 3. Deformity is noted at the left hip joint which abuts the dermal surface. This is not well assessed. Electronically signed by: Prabhjot Sarmiento M.D. 08/11/2018 9:49 PM ECG Data Attestation: I personally reviewed and interpreted this ECG as follows: Indication: altered mental status Rate (beats per minute): 116 Rhythm: normal sinus Findings: + other (poor baseline), + LBBB and + left axis deviation Blood Pressure Blood Pressure Findings: Low blood pressure Blood Pressure Disposition: further management by hospitalist TANNER Hemphill Patient is a 73-year-old male brought in by EMS right of the medical command call in regards to. He was found unresponsive and brought in. He was initially found to be hypoxic in the 60s febrile and tachycardic. He was placed on nonrebreather and transported to the ER. Upon presentation to ER he was continued on a nonrebreather. 3 IVs were established and was given 3 L of normal saline IV bolus. Labs were obtained and showed a mild leukocytosis of 13 ,000. Hemoglobin at 9. INR was elevated at 3.0. VBG was fairly unremarkable. BMP showed a CO2 of 17 with a lactic acid of 10. LFTs CK fairly unremarkable. TSH was elevated. UA with multiple white cells. Valproic acid was low at 37. Chest x-ray unremarkable. CT of the head showed no acute pathology. X-rays of the pelvis was unremarkable. On exam he had multiple exposed bones including both heads of his femur. On several of his ulcers there appeared to be infected. Patient was covered with broad-spectrum antibiotics including IV vancomycin. Patient remained on nonrebreather and eventually was titrated down due to the hypoxia. Heart rate trended down from the 130s-140s to the low 100s. His pulse ox which was initially per report in the 70s remained persistently in the 90s on a nonrebreather. Family was updated bedside. I did discuss with his brother who notes that the patient would be a full code for the time being unless it was permanent. Impression & Plan Sepsis, Respiratory failure Critical Care Time I have personally spent 35 minutes of critical care time in the direct management of this patient. This includes bedside care, interpretation of diagnostic studies, and testing, discussion with consultants, patient, and family members, and other required patient management activities. This 35 minutes is in excess of all separately billable procedures. Critical Care Time: Yes Discharge Plan Visit Data *Final* Discharge Date/Time: 08/12/18 01:00 Chief Complaint: Fever ED Provider: John Albright Discharge Problem: Sepsis, Respiratory failure Patient Disposition: Admitted As Inpatient Discharge Instructions Interventions: ED Discharge Assessment Last Done: 08/12/18 01:00 The scribe's documentation has been prepared under my direction and personally reviewed by me in its entirety. I confirm that the note above accurately reflects all work, treatment, procedures, and medical decision making performed by me.
[2018-08-12] MEDS ORDERED: ACETAMINOPHEN 325 MG TAB PO STA (01:57)
[2018-08-12] MEDS ORDERED: PATIENT'S HEIGHT AND/OR WEIGHT NEEDED SCH (02:30)
[2018-08-12] MEDS ORDERED: CLINDAMYCIN 600 MG in DEXTROSE 5% 50 ML IV STA (02:38)
[2018-08-12] MEDS ORDERED: CLINDAMYCIN CONSULT ACTIVE PRN (02:45)
[2018-08-12] MEDS ORDERED: SODIUM CHLORIDE 0.9% 1000ML 1,000 ML IV ONE (03:00)
--- NOTE | 2018-08-12 03:28 | Hospitalist Progress Note ---
Date of Service August 12, 2018 Subjective Made aware by RN of SBP 50s-60s upon patient arrival at medical floor. Patient had just completed third liter of IV fluid. AP Septic shock ICU transfer to facilitate Levophed. Patient's brother updated of developments over the phone and is agreeable to plan of care. Physical Exam 2 Vital Signs (Past 24 Hours): Last Vital Signs Temp 38.0 C H 08/12/18 02:19 Pulse 98 H 08/12/18 03:08 Resp 28 H 08/12/18 03:08 BP 68/38 L 08/12/18 03:08 Pulse Ox 95 08/12/18 03:08
[2018-08-12] MEDS ORDERED: NOREPINEPHRINE BIT INJ 8 MG in DEXTROSE 5% 500 ML IV SCH (03:45)
[2018-08-12] MEDS ORDERED: IMIPENEM/CILASTATIN SODIUM 300 MG in DEXTROSE 5% 100 ML IV SCH (04:00)
[2018-08-12] MEDS ORDERED: ICU PROTOCOL FOR HYPERGLYCEMIA PRN (04:28)
[2018-08-12] MEDS: NOREPINEPHRINE BIT INJ 8 MG in DEXTROSE 5% 500 ML IV PRN ×3 (04:31→06:01)
[2018-08-12 04:52] LABS: Hematocrit (blood only) 21.5 % (42-52); Hemoglobin 6.8 g/dL (14.0-18.0); Mean Corpuscular Hgb Conc 31.6 g/dL (32-36); Mean Corpuscular Volume 83.7 fL (80-100); Mean Platelet Volume 9.1 fL (7.4-10.4); Platelet Count 269 K/uL (130-400); RDW Coefficient of Variation 17.1 % (11.5-14.5); RDW Standard Deviation 53.2 fL (36.4-46.3); Red Blood Count 2.57 M/uL (4.7-6.1); White Blood Count 27.35 K/uL (4.8-10.8)
[2018-08-12 04:55] LABS: BUN Creatinine Ratio 37.5 (10-20); Blood Urea Nitrogen 44 mg/dl (7-18); Calcium 7.1 mg/dl (8.5-10.1); Carbon Dioxide 22 mmol/L (21-32); Chloride 113 mmol/L (98-107); Est GFR (African American) 71.8; Est GFR (Non-African American) 61.9; Glucose 98 mg/dl (70-99); Sodium 141 mmol/L (136-145)
[2018-08-12 04:59] LABS: T4 Free Thyroxine 1.19 ng/dl (0.8-1.6)
[2018-08-12] MEDS ORDERED: SODIUM CHLORIDE 0.9% 1000ML 1,000 ML IV SCH (05:00)
[2018-08-12 05:05] LABS: INR 2.7 (0.9-1.1); Prothrombin Time 25.5 Seconds (9.0-12.0)
[2018-08-12] MEDS ORDERED: PHYTONADIONE 10 MG in SODIUM CHLORIDE 0.9% 50 ML IV ONE (05:10)
[2018-08-12 05:25] LABS: Basophils # (auto) 0.01 K/uL (0-0.2); Echinocytes 1+; Immature Granulocytes # (auto) 0.19 K/uL (0.00-0.02); Immature Granulocytes % (auto) 0.7 %; Lymphocytes # (auto) 0.52 K/uL (1.2-3.4); Lymphocytes % (auto) 1.9 %; Monocytes # (auto) 1.11 K/uL (0.11-0.59); Monocytes % (auto) 4.1 %; Neutrophils # (auto) 25.52 K/uL (1.4-6.5); Neutrophils % (auto) 93.3 %; Ovalocytes 1+; Toxic Vacuolation 1+
[2018-08-12] MEDS: LACTATED RINGER'S 1,000 ML IV SCH ×3 (05:45→20:22)
--- NOTE | 2018-08-12 07:41 | CT Scan Report ---
ABDOMEN AND PELVIS CT WITHOUT CONTRAST CT DOSE: 1500.41 mGy.cm HISTORY: hematuria TECHNIQUE: Multiaxial CT images of the abdomen and pelvis were performed without contrast. A dose lo wering technique was utilized adhering to the principles of ALARA. COMPARISON STUDY: None. FINDINGS: Patchy densities within the lower lobes posteriorly. No pneumoperitoneum. No pneumatosis. T he patient's hips are in flexion resulting in suboptimal evaluation. The right femoral head appears t o be resected/fragmented. Small amount of gas within the residual right hip joint potentially related to a right lateral hip decubitus ulcer. Heterotopic ossification surrounding the left hip. There is a large decubitus ulcer within the left lateral hip measuring 7 cm. Small focus of gas in the soft ti ssues lateral to the left greater trochanter. Subcutaneous edema within the left hip. The balloon of the Childs catheter is located within the penile urethra. There is soft tissue gas within and adjacent to the balloon of the Childs catheter. The gas extends beyond the penile urethra and and within the a djacent soft tissues. Therefore, this is highly concerning for a urethral tear. There is a right-side d decubitus ulcer measuring 3 cm which abuts the right ischial tuberosity. There may be small focus o f cortical destruction at this location concerning for osteomyelitis. No evidence for bowel obstructi on. Large amount well-formed stool within the distal colon and rectum. The rectum measures up to 8.4 cm in diameter. There may be mild rectal wall thickening. Moderate stool within the remaining colon w hich is slightly dilated gas-filled. The transverse colon measures up to 7 cm. The unenhanced liver a nd spleen are unremarkable. Mild thickening of the adrenal glands which may be chronic. The unenhance d pancreas is unremarkable. An IVC filter is noted. No retroperitoneal lymphadenopathy. Gallbladder w all calcifications are noted. A 1.5 cm exophytic hypodense lesion within the lower pole the left kidn ey. This is incompletely characterized on this noncontrast study but may represent a cyst. Mild fulln ess within the right renal collecting system without yissel hydronephrosis. No renal or ureteral calcu li identified. Punctate calcification within the right deep pelvis on image 381 is likely a phlebolit h. The unenhanced liver and spleen are unremarkable. IMPRESSION: 1. Partially visualized Childs catheter with the balloon inflated within the penile urethra. There is gas surrounding the balloon of the catheter and into the adjacent soft tissues. This is highly concer tobin for a urethral tear. Urology consultation recommended. 2. Mild fullness within the right renal collecting system without yissel hydronephrosis. No definite r enal or ureteral calculi. 3. There appears be prior resection of the right femoral head with heterotopic ossification within th e bilateral hips. Small amount of gas within the right hip joint which appears to be extending from t he right lateral decubitus ulcer. Therefore, this concerning for underlying chronic infection/septic arthritis. 4. There is a right-sided decubitus ulcer which is in close contact with the right ischial tuberosity . There may be small amount of cortical destruction at the ischial tuberosity concerning for osteomye litis. 5. There is also a sacral decubitus ulcer within the left lateral hip with underlying soft tissue gas abutting the left greater trochanter. 6. Large amount well-formed stool within the distal sigmoid colon and rectum. There may be mild recta l wall thickening raising the possibility of a cyst or cortical colitis. Distended gas and stool-fill ed large bowel is likely due to the constipation. 7. Patchy bibasilar lower lobe densities may represent atelectasis or pneumonia. 8. Findings were discussed with Dr. Shelley at 7:40 AM on 08/12/2018. Electronically signed by: Jeffrey Roberts M.D. 08/12/2018 7:40 AM
[2018-08-12] MEDS ORDERED: IMIPENEM/CILASTATIN CONSULT ACTIVE PRN (09:00)
[2018-08-12] MEDS: ALBUMIN 5% 250 ML IV SCH ×2 (09:11→17:30)
--- NOTE | 2018-08-12 09:47 | Infectious Disease Consult ---
Date of Consultation August 12, 2018 Assessment & Plan (1) Severe sepsis: potential sources gu vs wounds. continue emperic abx, follow cultures. would suggest addition of fluconazole for yeast growing from 08/08 culture. overall prognosis poor. continue supportive care. History of Present Illness Attending Physician: Parrish Covington MD pt admitted due to low bp and fever at [facility]. was recently [place] [facility] [facility] [place], [place]o. treated with prolonged IV abx, d/c in June. Tmax in ER 39.8. Initial wbc 12, increased to 28 today, hbg also dropped to 6, receiving transfusion during my exam. Nonverbal, unable to obtain ros. on pressors. receiving multiple abx - vanco in ER, now on Imipenem and clinda. Ct abd in ER revealed felix to be in urethra with likely tear, multiple decubitis ulcers with gas and bone involvement. Blood cultures and urine cultures pending. UA >30 wbc with no bacteria, previous UA from 08/08 had 4+ bacteria and culture grew ESBL+ E. coli and C. albicans. E. coli sensitive to Imipenem. tolerating abx. Lactate was 10 on admission, improved to 2 today. h/o c diff in April. Allergies Allergy/AdvReac Type Severity Reaction Status Date / Time iodine Allergy Unknown Unknown Verified 08/11/18 21:43 onion AdvReac Intermediate vomitting Verified 08/11/18 21:43 Home Medications Home Medications Medication Instructions Recorded Confirmed Type Saccharomyces boulardii [Florastor] 250 mg PO BID17 04/23/18 08/11/18 History acetaminophen 325 mg PO Q6H PRN MDD 3 GRAM/24 04/23/18 08/11/18 History HOURS bisacodyl [Dulcolax (bisacodyl)] 10 mg ME DIRECTED PRN 04/23/18 08/11/18 History cholestyramine (with sugar) 4 g PO BID17 04/23/18 08/11/18 History [Questran] divalproex 500 mg PO BID 04/23/18 08/11/18 History folic acid 1 mg PO QAM 04/23/18 08/11/18 History magnesium hydroxide [Milk of 30 ml PO DIRECTED PRN 04/23/18 08/11/18 History Magnesia] melatonin 3 mg PO HS 04/23/18 08/11/18 History oxycodone 5 mg PO Q6 04/23/18 08/11/18 History pantoprazole 40 mg PO QAM 04/23/18 08/11/18 History sodium phosphates [Fleet Enema] 118 ml ME DIRECTED PRN 04/23/18 08/11/18 History thiamine HCl (vitamin B1) 100 mg PO QAM 04/23/18 08/11/18 History tramadol 50 mg PO Q6H PRN 04/23/18 08/11/18 History 2 Daryl Hn Po 60 ml PO ACHS 08/11/18 08/11/18 History Liquid Protein Suppliment 60 ml PO BID17 08/11/18 08/11/18 History baclofen 5 mg PO TIDM 08/11/18 08/11/18 History ergocalciferol (vitamin D2) 50,000 unit PO WK 08/11/18 08/11/18 History [Vitamin D2] fentanyl 1 patch TRANSDERMAL Q72H 08/11/18 08/11/18 History ferrous sulfate 325 mg PO BID17 08/11/18 08/11/18 History metoprolol succinate 50 mg PO QAM 08/11/18 08/11/18 History vitamin B [id number]-NM-[id number] cit 1 tab PO QAM 08/11/18 08/11/18 History Patient History Medical History Anxiety (Chronic) HTN (hypertension) (Chronic) Hypothyroidism (Chronic) GERD (gastroesophageal reflux disease) (Chronic) Anemia (Chronic) Schizoid personality disorder (Chronic) Myocardial infarction (Chronic) Dyslipidemia (Chronic) History of electroconvulsive therapy (Chronic) Bacteremia C. difficile colitis DVT (deep venous thrombosis) Pressure ulcer of ankle, right, unstageable Pressure ulcer of sacral region, stage 4 Surgical History History of appendectomy (Chronic) Family History Other Family history non-contributory Social History Current Living Situation: Personal Care Facility Current Living Situation Comment: [place] Feels Safe at Home: Hesitant to Answer Smoking Status: Unknown if ever smoked Preferred Language: Italian Communication Ability: Impaired Cardiovascular Specialist Required: No Review of Systems unable to obtain from patient, non verbal, obtained from chart Physical Exam 2 Vital Signs (Past 24 Hours): Last Vital Signs Temp 37.3 C 08/12/18 06:27 Pulse 69 08/12/18 06:27 Resp 21 08/12/18 06:27 BP 93/54 L 08/12/18 06:27 Pulse Ox 100 08/12/18 06:27 Constitutional: + ill appearing, + thin, + cachectic and + lethargic ENMT: Mouth: + dry oral mucous membranes Neck: normal visual inspection Respiratory: normal respiratory effort Auscultation: + diminished lung sounds Cardiovascular: Rate/Rhythm: regular rate Heart Sounds: no murmur Gastrointestinal (Abdomen): normal bowel sounds, soft, nontender, no hepatosplenomegaly Musculoskeletal: lethargic, does not follow commands Skin: no rashes, warm and dry unable to examine wounds Psychiatric: lethargic, non verbal
[2018-08-12] MEDS ORDERED: CLINDAMYCIN 600 MG in DEXTROSE 5% 50 ML IV SCH (10:00)
--- NOTE | 2018-08-12 11:16 | Pharmacy Report ---
Pharmacy Abx Dose Short Note - Date of Service August 12, 2018 - Assessment & Plan Assessment * 73 year old M with sepsis 2nd decubitus ulcer vs. osteomyelitis vs. source and possible necrotizing fasciitis. Possible uretheral tear per CT. Currently NPO for possible surgical intervention. * Cultures / pathogen considerations * 08/08/18 urine culture with ESBL E. coli and C. albicans * Previous recent cultures from recent osteomyelitis - MDR Morganella ( resistant to imipenem among many others) and Pseudomonas (resistant to aztreonam only) * Recent C. diff infection in April * Currently on imipenem and vancomycin with the addition of clindamycin x48 hours for antitoxin effect. Was on ciprofloxacin as an outpatient since 08/09/18. * Regimen is lacking coverage for C. albicans isolated in urine on 08/08/18 - sometimes colonization, but would suggest coverage 2nd uretheral tear * Regimen is lacking coverage for Morganella isolated in hip surface wound on 07/01/18 - will discuss empiric therapy need with ceramic plater * Dosing range for clindamycin for antitoxin effect is 600-900 mg IV q8h * Will target higher dose of imipenem of 1000 mg IV q8h 2nd known recent isolation of ESBL E. coli and adjust appropriately on a daily basis for renal function * C. diff considerations * Clindamycin especially with high risk for C. diff recurrance * Also on imipenem which increases risk * May or may not require addition of another antibiotic for empiric coverage of Morganella in previous infections * Would suggest prophylaxis when patient able to take po * Edu Iqbal (RN) - patient had one *formed* stool last night, none since * Renal * SCr improving - trended down 1.43 to 1.17 mg/dL. eCrCL based on 1.17 mg/dL is 50 mL/min, but ? if trend down is 2nd improvement in renal function or dilutional 2nd significant fluid resuscitation * Baseline SCr 0.7 mg/dL * Vancomycin pharmacokinetics / considerations * Goal trough 15-20 mcg/mL * Random level of 11.2 mcg/mL is below goal trough * Will dose vancomycin ongoing assuming trend of improving renal function will continue. May need to hold dose tomorrow prior to 1400 dose (pending eval of level) if renal function does not improve * Trough prior to 3rd dose of current regimen - will be prior to steady state Plan * Recommendations (pharmacy not consulted therefore will not make these changes without an order) * Add fluconazole 200 mg IV q24h to cover C. albicans in urine in high-risk patient * Add vancomycin 125 mg po BID for C. diff prophylaxis in high-risk patient * Suggest low threshold for addition of another antibiotic for MDR Morganella in patient history * Plan (pharmacy consulted and will make the following changes) * Decreasing clindamycin to 600 mg IV q8h (lower end of range) 2nd recent hx C. diff * Increasing imipenem to 500 mg IV q8h 2nd possible improvement in renal function * Schedule vancomycin 1000 mg IV q12h. Trough 08/13 @ 1330 Pharmacy will continue to follow and will adjust dose/frequency as necessary. Thank you.
[2018-08-12] MEDS: DIVALPROEX DELAY RELEASE 500 MG TAB PO SCH ×2 (11:19→20:23)
[2018-08-12] MEDS: SACCHAROMYCES BOULARDII 250 MG CAP PO SCH ×2 (11:19→17:36)
[2018-08-12] MEDS: LEVOTHYROXINE SODIUM 25 MCG TABLET PO SCH (11:19)
[2018-08-12] MEDS: FOLIC ACID 1 MG TAB PO SCH (11:19)
[2018-08-12] MEDS: THIAMINE HCL 100 MG TAB PO SCH (11:19)
[2018-08-12] MEDS: PANTOprazole 40 MG TAB PO SCH (11:20)
[2018-08-12 12:07] LABS: Hematocrit (blood only) 26.6 % (42-52); Hemoglobin 8.4 g/dL (14.0-18.0)
--- NOTE | 2018-08-12 12:26 | Critical Care Consultation ---
Date of Consultation August 12, 2018 Assessment & Plan (1) Severe sepsis: Impression: 1. Sepsis, I am not sure about the blood pressure reported previously, the patient is bedridden and with muscle contraction, will be extremely difficult to measure accurate blood pressure. 2. Multiple decub ulcers. 3. Recurrent UTI with MDR bacteria, urethral injury. 4. Schizophrenia. 5. History of myocardial infarction, not an issue at this point. 6. GERD. With eventration of the colon into the left side of the chest. Plan: 1. Continue with current antibiotics, appreciate pharmacy assistance. 2. Agree with prophylactic treatment for C. difficile colitis. 3. Continue with IV fluids to support blood pressure. 4. Add albumin, the patient is hypoalbuminemic, likely his oncotic pressure is too low. 5. Surgical consult for debridement of the right hip area. 6. Titrate norepinephrine. 7. Hold his p.o. medications as the patient is going to the OR. 8. The patient has IVC filter, he was also on Coumadin. 9. For pain control continue with fentanyl patch. 10. Daily labs. 11. GI prophylaxis. 12. Core measures for ICU has been met. Discussed with the staff on rounds and details, critical care time spent with the patient was 45 minutes. History of Present Illness Reason for Consultation: Sepsis Requesting Physician: Dr. Covington Attending Physician: Parrish Covington MD History of Present Illness Dear Dr. Covington: Thank you for your kind referral of to critical care service. This is 73-year-old gentleman with a history of recurrent admission to the hospital due to multiple sources of sepsis mainly from decub ulcers, history of recurrent UTI, with MDR bacteria including Morganella and ESBL. The patient had history of schizophrenia, he is bedridden, contracted in the bed. The patient presented to the hospital with hypotension, and leukocytosis. The patient was treated for sepsis due to severe decub ulcer and osteomyelitis affecting his right hip. The patient did have urethral abnormality noted also on the CAT scan that was done. Patient did have also subcutaneous gas. The patient started empirically on antibiotics, IV fluids, and admitted to the ICU for further management. The patient is a poor historian cannot give review of system. Past medical history, surgical history and social history obtained only from the records. The patient was evaluated by surgery and he is going for debridement to the OR. Allergies Allergy/AdvReac Type Severity Reaction Status Date / Time iodine Allergy Unknown Unknown Verified 08/11/18 21:43 onion AdvReac Intermediate vomitting Verified 08/11/18 21:43 Home Medications Home Medications Medication Instructions Recorded Confirmed Type Saccharomyces boulardii [Florastor] 250 mg PO BID17 04/23/18 08/11/18 History acetaminophen 325 mg PO Q6H PRN MDD 3 GRAM/24 04/23/18 08/11/18 History HOURS bisacodyl [Dulcolax (bisacodyl)] 10 mg DE DIRECTED PRN 04/23/18 08/11/18 History cholestyramine (with sugar) 4 g PO BID17 04/23/18 08/11/18 History [Questran] divalproex 500 mg PO BID 04/23/18 08/11/18 History folic acid 1 mg PO QAM 04/23/18 08/11/18 History magnesium hydroxide [Milk of 30 ml PO DIRECTED PRN 04/23/18 08/11/18 History Magnesia] melatonin 3 mg PO HS 04/23/18 08/11/18 History oxycodone 5 mg PO Q6 04/23/18 08/11/18 History pantoprazole 40 mg PO QAM 04/23/18 08/11/18 History sodium phosphates [Fleet Enema] 118 ml DE DIRECTED PRN 04/23/18 08/11/18 History thiamine HCl (vitamin B1) 100 mg PO QAM 04/23/18 08/11/18 History tramadol 50 mg PO Q6H PRN 04/23/18 08/11/18 History 2 Daryl Hn Po 60 ml PO ACHS 08/11/18 08/11/18 History Liquid Protein Suppliment 60 ml PO BID17 08/11/18 08/11/18 History baclofen 5 mg PO TIDM 08/11/18 08/11/18 History ergocalciferol (vitamin D2) 50,000 unit PO WK 08/11/18 08/11/18 History [Vitamin D2] fentanyl 1 patch TRANSDERMAL Q72H 08/11/18 08/11/18 History ferrous sulfate 325 mg PO BID17 08/11/18 08/11/18 History metoprolol succinate 50 mg PO QAM 08/11/18 08/11/18 History vitamin B [id number]-U-AN-zinc cit 1 tab PO QAM 08/11/18 08/11/18 History Patient History Medical History Anxiety (Chronic) HTN (hypertension) (Chronic) Hypothyroidism (Chronic) GERD (gastroesophageal reflux disease) (Chronic) Anemia (Chronic) Schizoid personality disorder (Chronic) Myocardial infarction (Chronic) Dyslipidemia (Chronic) History of electroconvulsive therapy (Chronic) Bacteremia C. difficile colitis DVT (deep venous thrombosis) Pressure ulcer of ankle, right, unstageable Pressure ulcer of sacral region, stage 4 Surgical History History of appendectomy (Chronic) Family History Other Family history non-contributory Social History Current Living Situation: Personal Care Facility Current Living Situation Comment: [place] Feels Safe at Home: Hesitant to Answer Smoking Status: Unknown if ever smoked Preferred Language: Lithuanian Communication Ability: Impaired Boarding Room Fixer Required: No Review of Systems Review of system is not obtainable. Physical Exam 2 Vital Signs (Past 24 Hours): Last Vital Signs Temp 37.3 C 08/12/18 06:27 Pulse 82 08/12/18 11:32 Resp 21 08/12/18 06:27 BP 100/63 08/12/18 11:32 Pulse Ox 100 08/12/18 11:32 Physical Exam: Vital signs remained stable, I did not see fever in ICU reported. Patient is cachectic, poor oral hygiene, no stridor, distant breath sounds bilaterally, abdomen is benign, multiple skin venous stasis in the lower extremity's, lower extremities are contracted, scrotal edema, and difficulty placing Childs catheter. Neurologically difficult to assess. Results & Data Laboratory Results His labs were reviewed which showed leukocytosis with white count 27,000, hematocrit of 21, platelets of 269. BUN and creatinine are slightly elevated at 44 and 1.17. Diagnostic Findings Reviewed CAT scan of the abdomen which showed the lower part of the lung showing COPD changes, there is eventration of the abdominal content into the chest cavity, on the left. There is stool impaction in the rectum, urethral injury.
--- NOTE | 2018-08-12 12:57 | Consultation Report ---
DATE OF CONSULTATION: 08/12/2018 HISTORY OF PRESENT ILLNESS: The patient is a 73-year-old male who is bedridden, noncommunicative and has had history of sepsis, his multiple decubitus ulcers. Should any surgical intervention be considered, this should more appropriately be performed at the tertiary care center. It is not something I would feel taking care of. Thank you for the consultation.
[2018-08-12] MEDS: IMIPENEM/CILASTATIN SODIUM 500 MG in DEXTROSE 5% 100 ML IV SCH ×2 (13:00→20:23)
[2018-08-12] MEDS ORDERED: VANCOMYCIN HCL 1,000 MG in SODIUM CHLORIDE 0.9% 250 ML IV STA (13:55)
[2018-08-12] MEDS: RASPBERRY SYRUP 5 ML UDP PO SCH ×2 (14:21→20:23)
[2018-08-12] MEDS: FLUCONAZOLE 200 MG/100 ML BAG IV SCH ×2 (14:21→14:23)
[2018-08-12] MEDS: VANCOMYCIN HCL 125 MG/2.5ML SOLN PO SCH ×2 (14:22→20:23)
--- NOTE | 2018-08-12 15:30 | Procedure Note ---
Procedure Note Date of Service August 12, 2018 Called to see patient due to an inability to Place Childs catheter by the primary service, fully inflated within the urethra with periurethral air consistent with trauma noted on CT scan imaging. Full urology consult to follow. CT scan images personally reviewed. Patient a poor historian, history obtained from nursing staff and chart. Attempts at passing an 18 Nauruan and 20 Nauruan coud met with soft resistance in the proximal urethra consistent with a false passage. Unable to irrigate catheter at that point. I subsequently returned to the room with a flexible bedside cystoscopy cart to Place Childs under direct cystoscopic guidance. Consent obtained from the patient's brother , only available direct family relatives. Risks and benefits reviewed. Patient being currently covered with IV antibiotics per nursing staff. Flexible cystoscope performed at bedside demonstrating a large posterior lateral cavity at the 4 to 5 o'clock position from the urethra consistent with a large traumatic falls passage. A relatively normal sphincter muscle was visualized on the contralateral side and was able to be bypassed with a minimally obstructive prostate gland, no evidence of obvious stricture or scar tissue and a distended bladder with cloudy urine within it. No obvious intravesical abnormalities were appreciated. An Amplatz superstiff wire was advanced into the bladder and cystoscope was backloaded off the wire. Attempts at passing an 18 and 16 Nauruan [place] met with rubbery resistance and apparently ended up within the false passage as well perhaps due to the size and location. These could not be irrigated and were not inflated. A 14 Nauruan silicone catheter was perforated at the tip using a hole punch and placed over the wire. Cystoscope was placed alongside this was visualized directly entering via the sphincter into the bladder. 10 cc of sterile water were placed within the balloon and catheter is irrigated with return of clear, isovolemic urine. Patient tolerated the procedure well. Continue Childs catheter and guard against traumatic self discontinuation times 2 weeks. Will monitor as inpatient and arrange for outpatient follow-up.
--- NOTE | 2018-08-12 17:21 | Palliative Care Consultation ---
Date of Consultation August 12, 2018 Assessment & Plan (1) Palliative care encounter: This patient is a 73-year-old male who has a history of multiple readmissions to the hospital related to sepsis which stems from pressure ulcers. This patient resides at [facility] since 04/2018 and has a complex history of recurrent UTI, with ESBL and MDR bacteria. Additional history includes schizophrenia, and contractions of unknown timeframe, osteomyelitis of his right hip and urethral abnormalities. The patient was transferred to the ED and subsequentally the ICU for hypotension, and leukocytosis. Palliative Care was consulted to address GOALS OF CARE. -I spoke with the IDT and discussed the orthopedic consultation and Urology consultation. -I reached out to the patient's brother Dk #1 number to call: WORK [phone] from [phone] #2 number to call: HOME [phone] #3 number to call: CELL: [phone] -Dk stated that he understands that his quality of life is poor. We confirmed his DO NOT RESUSCITATE CODE STATUS and discussed not escalating care. -Dk as his POA stated that he does not want any escalation in care, aside from current antibiotic regimen. If the patient is on inotropic support, we can continue with such, but does not want additional ones added to the regimen should he decline. -He would not like him to be transferred to any other facility. -A goal is to have him to return to [facility] under Hospice support, if this becomes a possibility based on his response to treatment. (2) Sepsis: -Managed by hospitalists and ID -Patient source of sepsis is decubitus ulcers and osteomyelitis of hip -Patient not a surgical candidate for hip debridement at this facility per ortho surgery, tertiary care transfer would be recommended if family wishes -Patient currently on the following medications for sepsis tx: 1. Clindamycin 500 mg IV Q8 2. Imipenem/Cilastatin 500 mg IV Q8 3. Diflucan 200 mg IV daily 4. Vancomycin 1G IV Q 12 5. Vancomycin 125 mg po BID Sepsis type: sepsis due to unspecified organism Qualified Code(s) : A41.9 - Sepsis, unspecified organism (3) Schizoid personality disorder: -Unsure of stability -Per patient brother patient does have hallucinations/delusions -Currently not on an antipsychotic, consider adding as patient nonverbal and unable to communicate with us well -Psychiatric consult if needed for management -Currently calm and non-aggressive Supervising Physician Co-Signing Physician Notes Chart reviewed, patient seen and examined in the ICU-no family at bedside PE: No acute distress Respirations: Unlabored CV: Regular rate Extremities: No edema Neuro: Patient did not respond to voice or touch on exam Agree with above note, assessment and plan as per JAGDISH Lipscomb P-we will continue to follow along and help family with medical decision making History of Present Illness Reason for Consultation: GOALS OF CARE Requesting Physician: Dr. Macias Attending Physician: Parrish Covington MD History of Present Illness This patient is a 73-year-old male who has a history of multiple readmissions to the hospital related to sepsis which stems from pressure ulcers. This patient resides at [facility] since 04/2018 and has a complex history of recurrent UTI, with ESBL and MDR bacteria. Additional history includes schizophrenia, and contractions of unknown timeframe, osteomyelitis of his right hip and urethral abnormalities. The patient was transferred to the ED and subsequentally the ICU for hypotension, and leukocytosis. Palliative Care was consulted to address GOALS OF CARE. Please see assessment and plan for further details. Upon entering the room, the patient was morbidly contracted in his hips. He did open his eyes, and followed simple commands like squeezing my hands, opening his mouth and sticking out his tongue. Patient was ultimately nonverbal for me. No family was present at the beside. Thank you kindly for involving us in the care of this unfortunate gentleman. We will follow as needed. Allergies Allergy/AdvReac Type Severity Reaction Status Date / Time iodine Allergy Unknown Unknown Verified 08/11/18 21:43 onion AdvReac Intermediate vomitting Verified 08/11/18 21:43 Home Medications Home Medications Medication Instructions Recorded Confirmed Type Saccharomyces boulardii [Florastor] 250 mg PO BID17 04/23/18 08/11/18 History acetaminophen 325 mg PO Q6H PRN MDD 3 GRAM/24 04/23/18 08/11/18 History HOURS bisacodyl [Dulcolax (bisacodyl)] 10 mg PA DIRECTED PRN 04/23/18 08/11/18 History cholestyramine (with sugar) 4 g PO BID17 04/23/18 08/11/18 History [Questran] divalproex 500 mg PO BID 04/23/18 08/11/18 History folic acid 1 mg PO QAM 04/23/18 08/11/18 History magnesium hydroxide [Milk of 30 ml PO DIRECTED PRN 04/23/18 08/11/18 History Magnesia] melatonin 3 mg PO HS 04/23/18 08/11/18 History oxycodone 5 mg PO Q6 04/23/18 08/11/18 History pantoprazole 40 mg PO QAM 04/23/18 08/11/18 History sodium phosphates [Fleet Enema] 118 ml PA DIRECTED PRN 04/23/18 08/11/18 History thiamine HCl (vitamin B1) 100 mg PO QAM 04/23/18 08/11/18 History tramadol 50 mg PO Q6H PRN 04/23/18 08/11/18 History 2 Daryl Hn Po 60 ml PO ACHS 08/11/18 08/11/18 History Liquid Protein Suppliment 60 ml PO BID17 08/11/18 08/11/18 History baclofen 5 mg PO TIDM 08/11/18 08/11/18 History ergocalciferol (vitamin D2) 50,000 unit PO WK 08/11/18 08/11/18 History [Vitamin D2] fentanyl 1 patch TRANSDERMAL Q72H 08/11/18 08/11/18 History ferrous sulfate 325 mg PO BID17 08/11/18 08/11/18 History metoprolol succinate 50 mg PO QAM 08/11/18 08/11/18 History vitamin B homklg-S-[id number]-zinc cit 1 tab PO QAM 08/11/18 08/11/18 History Patient History Medical History Anxiety (Chronic) HTN (hypertension) (Chronic) Hypothyroidism (Chronic) GERD (gastroesophageal reflux disease) (Chronic) Anemia (Chronic) Schizoid personality disorder (Chronic) Myocardial infarction (Chronic) Dyslipidemia (Chronic) History of electroconvulsive therapy (Chronic) Bacteremia C. difficile colitis DVT (deep venous thrombosis) Pressure ulcer of ankle, right, unstageable Pressure ulcer of sacral region, stage 4 Surgical History History of appendectomy (Chronic) Family History Other Family history non-contributory Social History Current Living Situation: Personal Care Facility Current Living Situation Comment: [place] Feels Safe at Home: Hesitant to Answer Smoking Status: Unknown if ever smoked Communication Ability: Impaired Review of Systems Unable to obtain as patient non reliable historian Physical Exam 2 Vital Signs (Past 24 Hours): Last Vital Signs Temp 37.3 C 08/12/18 06:27 Pulse 82 08/12/18 11:32 Resp 21 08/12/18 06:27 BP 100/63 08/12/18 11:32 Pulse Ox 100 08/12/18 11:32 Physical Exam: severely contracted while lying in his bed Neck: trachea midline, no thyromegaly Respiratory: normal respiratory effort, lungs clear to auscultation Cardiovascular: Heart Sounds: normal S1, normal S2 and + murmur Extremities : no edema Gastrointestinal (Abdomen): Percussion/Palpation: + abdomen tender, + abdomen rigid and abdomen soft Skin: + wound (left hip), + dry skin and + excoriations Psychiatric: Orientation: alert Apperance: + disheveled Eye Contact: + poor eye contact Hallucinations: + visual hallucinations (per pt brother) Insight: + severely impaired insight Judgement: + severely impaired judgement Genitourinary: + enlarged testicle (felix placed by Urology) Time Spent Midlevel Total time spent 100 minutes with > 50% of that time spent reviewing the chart, assessing the patient, discussing GOALS OF CARE on the phone with the patient's brother, Dk Singh.
[2018-08-12] MEDS: CLINDAMYCIN 600 MG in DEXTROSE 5% 50 ML IV SCH (17:35)
--- NOTE | 2018-08-12 18:51 | Hospitalist Progress Note ---
Date of Service August 12, 2018 Assessment & Plan (1) Severe sepsis: SIRS plus lactic acid elevation plus ARF plus encephalopathy Secondary to decubitus wounds, bilateral hip osteomyelitis on CT initial read hx right hip osteomyelitis sp surgery GM (04/2018) and antibiotic Rx until (2017) Patient unable to follow-up with [facility] specialists post procedure/antibiotic completion due to financial constraints/transportation difficulties as per family. -- still on Levophed on Imipenem, Clinda ID consulted Ortho consulted for possible debridement Hypertension -- currently in septic shock Schizoid personality/mood disorder PE DVT sp IVC filter placement on Coumadin INR therapeutic -- Vit K ordered chronic anemia, hemoglobin at baseline Hold Coumadin for now RE possible procedure; may need full reversal with hemoglobin drop/blood loss DVT prophylaxis. SCDs while Coumadin on hold if INR less than 2 DNR as per patient's previous wishes as per brother Mr. Dk Winters. (Contact numbers [phone], [phone]) discussed with Dr. Macias Subjective ff up for septic shock seen resting in bed, appears weak opens eyes to verbal stimuli non verbal occasionally nods to answer questions not in distress difficult to perform ROS due to above Physical Exam 2 Vital Signs (Past 24 Hours): Last Vital Signs Temp 36.5 C 08/12/18 16:00 Pulse 79 08/12/18 18:01 Resp 21 08/12/18 18:01 BP 99/57 L 08/12/18 18:01 Pulse Ox 97 08/12/18 18:01 Physical Exam: General- somewhat drowsy, non verbal, not in distress Head- atraumatic Eyes- PERRL, EOMI, anicteric ENT- oropharynx clear Neck- supple, no JVD, no adenopathy, no thyromegaly; carotids +2/2, no bruits appreciated Lungs- clear to auscultation bilaterally, no rales/wheezes Heart- normal rate, regular rhythm; no murmur, no gallop, no rub appreciated Abdomen- normal bowel sounds, nondistended, soft, nontender, no masses or hepatosplenomegaly Extremities- (+) flexed, patient seems to be in significant pain with movement wounds not able to be assessed Neuro- drowsy, non verbal Skin- warm & dry Results & Data Laboratory Results Laboratory Results - last 24 hr 08/11/18 08/11/1808/11/19 20:42 21:08 21:16 WBC 12.88 H RBC 3.37 L Hgb 8.9 L POC Hgb Hct 29.0 L POC Hct MCV 86.1 MCH 26.4 MCHC 30.7 L RDW Std Deviation 54.4 H RDW Coeff of Lucila 17.3 H Plt Count 394 MPV 9.4 Immature Gran % (Auto) 1.2 Neut % (Auto) 93.6 Lymph % (Auto) 3.0 [place] % (Auto) 1.9 Eos % (Auto) 0.2 Baso % (Auto) 0.1 Immature Gran # (Auto) 0.16 H Neut # (Auto) 12.05 H Lymph # (Auto) 0.38 L [place] # (Auto) 0.25 Eos # (Auto) 0.03 Baso # (Auto) 0.01 Toxic Vacuolation Ovalocytes Echinocytes 1+ Acanthocytes (Spur) 1+ Schistocytes 1+ PT INR APTT PTT Ratio ABG pH ABG pCO2 ABG pO2 ABG HCO3 ABG O2 Saturation ABG Base Excess Jean Test VBG pH VBG pCO2 VBG pO2 VBG HCO3 VBG O2 Saturation VBG Base Excess Oxygen Given POC Sodium Sodium POC Potassium Potassium POC Chloride Chloride Carbon Dioxide POC Total CO2 Anion Gap POC Anion Gap POC BUN BUN Creatinine POC Creatinine Est Cr Clr Drug Dosing Est GFR ( Amer) Est GFR (Non-Af Amer) BUN/Creatinine Ratio Glucose POC Glucose (other) Lactate 10.7 H* Calcium POC Ioniz Calcium Fam Magnesium Total Bilirubin AST ALT Alkaline Phosphatase Ammonia Total Creatine Kinase Total Protein Albumin Globulin Albumin/Globulin Ratio TSH Free T4 Total T3 Specimen Hemolysis Urine Color Urine Appearance Urine pH Ur Specific [place] Urine Protein Urine Glucose (UA) Urine Ketones Urine Blood Urine Nitrite Urine Bilirubin Urine Urobilinogen Ur Leukocyte Esterase Urine RBC Urine WBC Ur Epithelial Cells Urine Bacteria Hyaline Casts Nasal Screen MRSA (PCR) Random Vancomycin Valproic Acid 37 L Blood Type Blood Type Recheck Antibody Screen Crossmatch 08/11/18 08/11/18 08/11/18 21:16 21:16 21:16 WBC RBC Hgb POC Hgb Hct POC Hct MCV MCH MCHC RDW Std Deviation RDW Coeff of Lucila Plt Count MPV Immature Gran % (Auto) Neut % (Auto) Lymph % (Auto) [place] % (Auto) Eos % (Auto) Baso % (Auto) Immature Gran # (Auto) Neut # (Auto) Lymph # (Auto) [place] # (Auto) Eos # (Auto) Baso # (Auto) Toxic Vacuolation Ovalocytes Echinocytes Acanthocytes (Spur) Schistocytes PT 28.8 H INR 3.0 H APTT 45.1 H* PTT Ratio 1.7 ABG pH ABG pCO2 ABG pO2 ABG HCO3 ABG O2 Saturation ABG Base Excess Jean Test VBG pH VBG pCO2 VBG pO2 VBG HCO3 VBG O2 Saturation VBG Base Excess Oxygen Given POC Sodium Sodium 138 POC Potassium Potassium 4.6 POC Chloride Chloride 106 Carbon Dioxide 17 L POC Total CO2 Anion Gap 16.0 H POC Anion Gap POC BUN BUN 45 H Creatinine 1.43 H POC Creatinine Est Cr Clr Drug Dosing Not Reportable Est GFR ( Amer) 56.3 Est GFR (Non-Af Amer) 48.6 BUN/Creatinine Ratio 31.2 H Glucose 92 POC Glucose (other) Lactate Calcium 8.1 L POC Ioniz Calcium Fam Magnesium 1.9 Total Bilirubin 0.5 AST 26 ALT 12 Alkaline Phosphatase 158 H Ammonia Total Creatine Kinase 160 Total Protein 6.6 Albumin 1.4 L Globulin 5.2 H Albumin/Globulin Ratio 0.3 L TSH 14.300 H Free T4 Total T3 Specimen Hemolysis Urine Color Urine Appearance Urine pH Ur Specific [place] Urine Protein Urine Glucose (UA) Urine Ketones Urine Blood Urine Nitrite Urine Bilirubin Urine Urobilinogen Ur Leukocyte Esterase Urine RBC Urine WBC Ur Epithelial Cells Urine Bacteria Hyaline Casts Nasal Screen MRSA (PCR) Random Vancomycin Valproic Acid Blood Type Blood Type Recheck A Positive Antibody Screen Crossmatch 08/11/18 08/11/18 08/11/18 21:26 22:00 22:41 WBC RBC Hgb POC Hgb 9.5 L Hct POC Hct 28 L MCV MCH MCHC RDW Std Deviation RDW Coeff of Lucila Plt Count MPV Immature Gran % (Auto) Neut % (Auto) Lymph % (Auto) [place] % (Auto) Eos % (Auto) Baso % (Auto) Immature Gran # (Auto) Neut # (Auto) Lymph # (Auto) [place] # (Auto) Eos # (Auto) Baso # (Auto) Toxic Vacuolation Ovalocytes Echinocytes Acanthocytes (Spur) Schistocytes PT INR APTT PTT Ratio ABG pH ABG pCO2 ABG pO2 ABG HCO3 ABG O2 Saturation ABG Base Excess Jean Test VBG pH 7.39 VBG pCO2 33 L VBG pO2 54 VBG HCO3 19 VBG O2 Saturation 85.2 VBG Base Excess -5.2 Oxygen Given POC Sodium 142 Sodium POC Potassium 5.0 Potassium POC Chloride 103 Chloride Carbon Dioxide POC Total CO2 21 L Anion Gap POC Anion Gap 24.0 POC BUN 38 H BUN Creatinine POC Creatinine 1.2 Est Cr Clr Drug Dosing Est GFR ( Amer) Est GFR (Non-Af Amer) BUN/Creatinine Ratio Glucose POC Glucose (other) 93 Lactate Calcium POC Ioniz Calcium Fam 1.08 L Magnesium Total Bilirubin AST ALT Alkaline Phosphatase Ammonia Total Creatine Kinase Total Protein Albumin Globulin Albumin/Globulin Ratio TSH Free T4 Total T3 Specimen Hemolysis Urine Color Red Urine Appearance Cloudy H Urine pH Ur Specific [place] 1.024 Urine Protein Positive H Urine Glucose (UA) Urine Ketones Urine Blood Urine Nitrite Urine Bilirubin Urine Urobilinogen Ur Leukocyte Esterase Urine RBC >30 H Urine WBC >30 H Ur Epithelial Cells 0-5 Urine Bacteria Negative Hyaline Casts 0-5 Nasal Screen MRSA (PCR) Random Vancomycin Valproic Acid Blood Type Blood Type Recheck Antibody Screen Crossmatch 08/11/18 08/11/18 08/12/18 23:44 23:44 04:01 WBC RBC Hgb POC Hgb Hct POC Hct MCV MCH MCHC RDW Std Deviation RDW Coeff of Lucila Plt Count MPV Immature Gran % (Auto) Neut % (Auto) Lymph % (Auto) [place] % (Auto) Eos % (Auto) Baso % (Auto) Immature Gran # (Auto) Neut # (Auto) Lymph # (Auto) [place] # (Auto) Eos # (Auto) Baso # (Auto) Toxic Vacuolation Ovalocytes Echinocytes Acanthocytes (Spur) Schistocytes PT INR APTT PTT Ratio ABG pH 7.45 ABG pCO2 30 L ABG pO2 79 L ABG HCO3 20 ABG O2 Saturation 92.6 ABG Base Excess -3.4 Jean Test Pos VBG pH VBG pCO2 VBG pO2 VBG HCO3 VBG O2 Saturation VBG Base Excess Oxygen Given RA POC Sodium Sodium POC Potassium Potassium POC Chloride Chloride Carbon Dioxide POC Total CO2 Anion Gap POC Anion Gap POC BUN BUN Creatinine POC Creatinine Est Cr Clr Drug Dosing Est GFR ( Amer) Est GFR (Non-Af Amer) BUN/Creatinine Ratio Glucose POC Glucose (other) Lactate 3.8 H* Calcium POC Ioniz Calcium Fam Magnesium Total Bilirubin AST ALT Alkaline Phosphatase Ammonia Total Creatine Kinase Total Protein Albumin Globulin Albumin/Globulin Ratio TSH Free T4 Total T3 Specimen Hemolysis Urine Color Urine Appearance Urine pH Ur Specific [place] Urine Protein Urine Glucose (UA) Urine Ketones Urine Blood Urine Nitrite Urine Bilirubin Urine Urobilinogen Ur Leukocyte Esterase Urine RBC Urine WBC Ur Epithelial Cells Urine Bacteria Hyaline Casts Nasal Screen MRSA (PCR) Positive A Random Vancomycin Valproic Acid Blood Type Blood Type Recheck Antibody Screen Crossmatch 08/12/18 08/12/18 08/12/18 04:19 04:19 04:19 WBC RBC Hgb POC Hgb Hct POC Hct MCV MCH MCHC RDW Std Deviation RDW Coeff of Lucila Plt Count MPV Immature Gran % (Auto) Neut % (Auto) Lymph % (Auto) [place] % (Auto) Eos % (Auto) Baso % (Auto) Immature Gran # (Auto) Neut # (Auto) Lymph # (Auto) [place] # (Auto) Eos # (Auto) Baso # (Auto) Toxic Vacuolation Ovalocytes Echinocytes Acanthocytes (Spur) Schistocytes PT INR APTT PTT Ratio ABG pH ABG pCO2 ABG pO2 ABG HCO3 ABG O2 Saturation ABG Base Excess Jean Test VBG pH VBG pCO2 VBG pO2 VBG HCO3 VBG O2 Saturation VBG Base Excess Oxygen Given POC Sodium Sodium 141 POC Potassium Potassium 4.0 POC Chloride Chloride 113 H Carbon Dioxide 22 POC Total CO2 Anion Gap 6.0 POC Anion Gap POC BUN BUN 44 H Creatinine 1.17 POC Creatinine Est Cr Clr Drug Dosing Not Reportable Est GFR ( Amer) 71.8 Est GFR (Non-Af Amer) 61.9 BUN/Creatinine Ratio 37.5 H Glucose 98 POC Glucose (other) Lactate 2.2 H* Calcium 7.1 L POC Ioniz Calcium Fam Magnesium Total Bilirubin AST ALT Alkaline Phosphatase Ammonia 22.0 Total Creatine Kinase Total Protein Albumin Globulin Albumin/Globulin Ratio TSH Free T4 1.19 Total T3 Specimen Hemolysis Urine Color Urine Appearance Urine pH Ur Specific [place] Urine Protein Urine Glucose (UA) Urine Ketones Urine Blood Urine Nitrite Urine Bilirubin Urine Urobilinogen Ur Leukocyte Esterase Urine RBC Urine WBC Ur Epithelial Cells Urine Bacteria Hyaline Casts Nasal Screen MRSA (PCR) Random Vancomycin Valproic Acid Blood Type Blood Type Recheck Antibody Screen Crossmatch 08/12/18 08/12/18 08/12/18 04:19 04:19 04:19 WBC 27.35 H D RBC 2.57 L Hgb 6.8 L* POC Hgb Hct 21.5 L POC Hct MCV 83.7 MCH 26.5 MCHC 31.6 L RDW Std Deviation 53.2 H RDW Coeff of Lucila 17.1 H Plt Count 269 MPV 9.1 Immature Gran % (Auto) 0.7 Neut % (Auto) 93.3 Lymph % (Auto) 1.9 [place] % (Auto) 4.1 Eos % (Auto) 0.0 Baso % (Auto) 0.0 Immature Gran # (Auto) 0.19 H Neut # (Auto) 25.52 H Lymph # (Auto) 0.52 L [place] # (Auto) 1.11 H Eos # (Auto) 0.00 Baso # (Auto) 0.01 Toxic Vacuolation 1+ Ovalocytes 1+ Echinocytes 1+ Acanthocytes (Spur) Schistocytes PT 25.5 H INR 2.7 H APTT PTT Ratio ABG pH ABG pCO2 ABG pO2 ABG HCO3 ABG O2 Saturation ABG Base Excess Jean Test VBG pH VBG pCO2 VBG pO2 VBG HCO3 VBG O2 Saturation VBG Base Excess Oxygen Given POC Sodium Sodium POC Potassium Potassium POC Chloride Chloride Carbon Dioxide POC Total CO2 Anion Gap POC Anion Gap POC BUN BUN Creatinine POC Creatinine Est Cr Clr Drug Dosing Est GFR ( Amer) Est GFR (Non-Af Amer) BUN/Creatinine Ratio Glucose POC Glucose (other) Lactate Calcium POC Ioniz Calcium Fam Magnesium Total Bilirubin AST ALT Alkaline Phosphatase Ammonia Total Creatine Kinase Total Protein Albumin Globulin Albumin/Globulin Ratio TSH Free T4 Total T3 0.44 L Specimen Hemolysis Urine Color Urine Appearance Urine pH Ur Specific [place] Urine Protein Urine Glucose (UA) Urine Ketones Urine Blood Urine Nitrite Urine Bilirubin Urine Urobilinogen Ur Leukocyte Esterase Urine RBC Urine WBC Ur Epithelial Cells Urine Bacteria Hyaline Casts Nasal Screen MRSA (PCR) Random Vancomycin Valproic Acid Blood Type Blood Type Recheck Antibody Screen Crossmatch 08/12/18 08/12/18 08/12/18 04:19 12:00 12:00 WBC RBC Hgb 8.4 L POC Hgb Hct 26.6 L POC Hct MCV MCH MCHC RDW Std Deviation RDW Coeff of Lucila Plt Count MPV Immature Gran % (Auto) Neut % (Auto) Lymph % (Auto) [place] % (Auto) Eos % (Auto) Baso % (Auto) Immature Gran # (Auto) Neut # (Auto) Lymph # (Auto) [place] # (Auto) Eos # (Auto) Baso # (Auto) Toxic Vacuolation Ovalocytes Echinocytes Acanthocytes (Spur) Schistocytes PT INR APTT PTT Ratio ABG pH ABG pCO2 ABG pO2 ABG HCO3 ABG O2 Saturation ABG Base Excess Jean Test VBG pH VBG pCO2 VBG pO2 VBG HCO3 VBG O2 Saturation VBG Base Excess Oxygen Given POC Sodium Sodium POC Potassium Potassium POC Chloride Chloride Carbon Dioxide POC Total CO2 Anion Gap POC Anion Gap POC BUN BUN Creatinine POC Creatinine Est Cr Clr Drug Dosing Est GFR ( Amer) Est GFR (Non-Af Amer) BUN/Creatinine Ratio Glucose POC Glucose (other) Lactate 1.9 Calcium POC Ioniz Calcium Fam Magnesium Total Bilirubin AST ALT Alkaline Phosphatase Ammonia Total Creatine Kinase Total Protein Albumin Globulin Albumin/Globulin Ratio TSH Free T4 Total T3 Specimen Hemolysis Urine Color Urine Appearance Urine pH Ur Specific [place] Urine Protein Urine Glucose (UA) Urine Ketones Urine Blood Urine Nitrite Urine Bilirubin Urine Urobilinogen Ur Leukocyte Esterase Urine RBC Urine WBC Ur Epithelial Cells Urine Bacteria Hyaline Casts Nasal Screen MRSA (PCR) Random Vancomycin Valproic Acid Blood Type A Positive Blood Type Recheck Antibody Screen NEGATIVE Crossmatch See Detail 08/12/18 12:00 WBC RBC Hgb POC Hgb Hct POC Hct MCV MCH MCHC RDW Std Deviation RDW Coeff of Lucila Plt Count MPV Immature Gran % (Auto) Neut % (Auto) Lymph % (Auto) [place] % (Auto) Eos % (Auto) Baso % (Auto) Immature Gran # (Auto) Neut # (Auto) Lymph # (Auto) [place] # (Auto) Eos # (Auto) Baso # (Auto) Toxic Vacuolation Ovalocytes Echinocytes Acanthocytes (Spur) Schistocytes PT INR APTT PTT Ratio ABG pH ABG pCO2 ABG pO2 ABG HCO3 ABG O2 Saturation ABG Base Excess Jean Test VBG pH VBG pCO2 VBG pO2 VBG HCO3 VBG O2 Saturation VBG Base Excess Oxygen Given POC Sodium Sodium POC Potassium Potassium POC Chloride Chloride Carbon Dioxide POC Total CO2 Anion Gap POC Anion Gap POC BUN BUN Creatinine POC Creatinine Est Cr Clr Drug Dosing Est GFR ( Amer) Est GFR (Non-Af Amer) BUN/Creatinine Ratio Glucose POC Glucose (other) Lactate Calcium POC Ioniz Calcium Fam Magnesium Total Bilirubin AST ALT Alkaline Phosphatase Ammonia Total Creatine Kinase Total Protein Albumin Globulin Albumin/Globulin Ratio TSH Free T4 Total T3 Specimen Hemolysis Urine Color Urine Appearance Urine pH Ur Specific [place] Urine Protein Urine Glucose (UA) Urine Ketones Urine Blood Urine Nitrite Urine Bilirubin Urine Urobilinogen Ur Leukocyte Esterase Urine RBC Urine WBC Ur Epithelial Cells Urine Bacteria Hyaline Casts Nasal Screen MRSA (PCR) Random Vancomycin 11.2 Valproic Acid Blood Type Blood Type Recheck Antibody Screen Crossmatch
[2018-08-12] MEDS: fentaNYL 12 MCG/HR TDSY TD SCH (20:22)
[2018-08-12] MEDS: CHECK FENTANYL PATCH PLACEMENT SCH (23:50)
[2018-08-13] MEDS: CLINDAMYCIN 600 MG in DEXTROSE 5% 50 ML IV SCH ×3 (00:59→16:15)
[2018-08-13] MEDS: ALBUMIN 5% 250 ML IV SCH ×3 (00:59→16:16)
[2018-08-13] MEDS: LACTATED RINGER'S 1,000 ML IV SCH ×4 (03:01→20:40)
[2018-08-13] MEDS: VANCOMYCIN HCL 1,000 MG in SODIUM CHLORIDE 0.9% 250 ML IV SCH ×2 (03:01→13:51)
[2018-08-13] MEDS: IMIPENEM/CILASTATIN SODIUM 500 MG in DEXTROSE 5% 100 ML IV SCH ×3 (04:56→16:58)
[2018-08-13] MEDS: LEVOTHYROXINE SODIUM 25 MCG TABLET PO SCH (06:37)
--- NOTE | 2018-08-13 07:09 | Urology Consultation ---
Date of Consultation August 13, 2018 Assessment & Plan (1) Urethral tear: Childs is patent, draining clear yellow urine. Cr improving since Childs insertion. Recommend Childs remain in place x at least 2 weeks to allow urethra to heal. Patient would likely benefit from Childs for comfort, however can reassess after 2 weeks to see if meeting goals of hospice/pal care. Thank you for allowing us to participate in the care of this patient. Please contact our service with additional questions/concerns/change in patient status. History of Present Illness Attending Physician: Parrish Covington MD History of Present Illness 73YO male with sepsis and urethral tear. Patient is nonverbal and history is gathered from chart review. Patient is contracted, bedridden, has history of multiple sources of sepsis including hx of decub ulcer and osteomyelitis. Childs placement attempted upon arrival in the ER -- CT scan demonstrated Childs balloon inflated in the urethra and gas surrounding balloon and into adjacent soft tissues, likely urethral tear. 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 Our service was contacted for evaluation. Dr. Lopez Marks briefly saw the patient yesterday and successfully placed Childs catheter. This remains in place and patent, draining clear yellow urine today. Patient appears to be resting comfortably upon entry to room, unable to accurately answer questions. Pal care/hospice currently addressing goals of care. Allergies Allergy/AdvReac Type Severity Reaction Status Date / Time iodine Allergy Unknown Unknown Verified 08/11/18 21:43 onion AdvReac Intermediate vomitting Verified 08/11/18 21:43 Home Medications Home Medications Medication Instructions Recorded Confirmed Type Saccharomyces boulardii [Florastor] 250 mg PO BID17 04/23/18 08/11/18 History acetaminophen 325 mg PO Q6H PRN MDD 3 GRAM/24 04/23/18 08/11/18 History HOURS bisacodyl [Dulcolax (bisacodyl)] 10 mg [place] DIRECTED PRN 04/23/18 08/11/18 History cholestyramine (with sugar) 4 g PO BID17 04/23/18 08/11/18 History [Questran] divalproex 500 mg PO BID 04/23/18 08/11/18 History folic acid 1 mg PO QAM 04/23/18 08/11/18 History magnesium hydroxide [Milk of 30 ml PO DIRECTED PRN 04/23/18 08/11/18 History Magnesia] melatonin 3 mg PO HS 04/23/18 08/11/18 History oxycodone 5 mg PO Q6 04/23/18 08/11/18 History pantoprazole 40 mg PO QAM 04/23/18 08/11/18 History sodium phosphates [Fleet Enema] 118 ml [place] DIRECTED PRN 04/23/18 08/11/18 History thiamine HCl (vitamin B1) 100 mg PO QAM 04/23/18 08/11/18 History tramadol 50 mg PO Q6H PRN 04/23/18 08/11/18 History 2 Daryl Hn Po 60 ml PO ACHS 08/11/18 08/11/18 History Liquid Protein Suppliment 60 ml PO BID17 08/11/18 08/11/18 History baclofen 5 mg PO TIDM 08/11/18 08/11/18 History ergocalciferol (vitamin D2) 50,000 unit PO WK 08/11/18 08/11/18 History [Vitamin D2] fentanyl 1 patch TRANSDERMAL Q72H 08/11/18 08/11/18 History ferrous sulfate 325 mg PO BID17 08/11/18 08/11/18 History metoprolol succinate 50 mg PO QAM 08/11/18 08/11/18 History vitamin B vtasby-O-SA-zinc cit 1 tab PO QAM 08/11/18 08/11/18 History Patient History Medical History Anxiety (Chronic) HTN (hypertension) (Chronic) Hypothyroidism (Chronic) GERD (gastroesophageal reflux disease) (Chronic) Anemia (Chronic) Schizoid personality disorder (Chronic) Myocardial infarction (Chronic) Dyslipidemia (Chronic) History of electroconvulsive therapy (Chronic) Bacteremia C. difficile colitis DVT (deep venous thrombosis) Pressure ulcer of ankle, right, unstageable Pressure ulcer of sacral region, stage 4 Surgical History History of appendectomy (Chronic) Family History Other Family history non-contributory Social History Current Living Situation: Personal Care Facility Current Living Situation Comment: [place] Feels Safe at Home: Hesitant to Answer Smoking Status: Unknown if ever smoked Communication Ability: Impaired Review of Systems Unable to obtain ROS due to nonverbal status. Physical Exam 2 Vital Signs (Past 24 Hours): Last Vital Signs Temp 36.7 C 08/12/18 20:00 Pulse 74 08/12/18 20:00 Resp 25 H 08/12/18 20:00 BP 88/48 L 08/12/18 20:00 Pulse Ox 98 08/12/18 20:00 Constitutional: + cachectic, + altered mental status, + disheveled and + malnourished; no acute distress Neck: normal visual inspection Respiratory: normal respiratory effort Cardiovascular: Extremities: + edema Gastrointestinal (Abdomen): Inspection/Auscultation: abdomen normal to inspection Percussion/Palpation: + guarding (likely due to confusion) Skin: + ulcer and + wound Psychiatric: Orientation: alert and + guarded; + not oriented to person and + uncooperative Apperance: + disheveled Eye Contact: + poor eye contact Genitourinary: + external lesion (scab at 2-o'clock position of glans), + penile swelling and + edematous scrotum; no scrotal ecchymosis Edema extends from scrotum into bilateral groin.
[2018-08-13] MEDS: DIVALPROEX DELAY RELEASE 500 MG TAB PO SCH ×2 (07:55→21:21)
[2018-08-13] MEDS: PANTOprazole 40 MG TAB PO SCH (07:56)
[2018-08-13] MEDS: FOLIC ACID 1 MG TAB PO SCH (07:56)
[2018-08-13] MEDS: SACCHAROMYCES BOULARDII 250 MG CAP PO SCH ×2 (07:56→16:17)
[2018-08-13] MEDS: THIAMINE HCL 100 MG TAB PO SCH (07:56)
[2018-08-13] MEDS: RASPBERRY SYRUP 5 ML UDP PO SCH ×2 (07:57→21:21)
[2018-08-13] MEDS: VANCOMYCIN HCL 125 MG/2.5ML SOLN PO SCH ×2 (08:00→21:21)
[2018-08-13] MEDS: CHECK FENTANYL PATCH PLACEMENT SCH ×2 (08:14→16:16)
[2018-08-13] MEDS ORDERED: GENTAMICIN CONSULT ACTIVE PRN (08:43)
[2018-08-13] MEDS ORDERED: CONSULT PHARMACY STA (08:43)
[2018-08-13] MEDS ORDERED: GENTAMICIN SULFATE 440 MG in DEXTROSE 5% 100 ML IV STA (08:45)
[2018-08-13 09:18] LABS: Basophils # (auto) 0.01 K/uL (0-0.2); Basophils % (auto) 0.1 %; Eosinophils # (auto) 0.41 K/uL (0-0.5); Eosinophils % (auto) 2.3 %; Hematocrit (blood only) 22.2 % (42-52); Hemoglobin 7.2 g/dL (14.0-18.0); Immature Granulocytes # (auto) 0.06 K/uL (0.00-0.02); Immature Granulocytes % (auto) 0.3 %; Lymphocytes # (auto) 1.19 K/uL (1.2-3.4); Lymphocytes % (auto) 6.7 %; Mean Corpuscular Hgb Conc 32.4 g/dL (32-36); Mean Corpuscular Volume 83.5 fL (80-100); Mean Platelet Volume 9.4 fL (7.4-10.4); Monocytes % (auto) 6.2 %; Neutrophils # (auto) 14.89 K/uL (1.4-6.5); Neutrophils % (auto) 84.4 %; Platelet Count 236 K/uL (130-400); RDW Coefficient of Variation 16.8 % (11.5-14.5); RDW Standard Deviation 51.2 fL (36.4-46.3); Red Blood Count 2.66 M/uL (4.7-6.1); White Blood Count 17.66 K/uL (4.8-10.8)
[2018-08-13 09:46] LABS: RBC Morphology Unremarkable
[2018-08-13 09:55] LABS: BUN Creatinine Ratio 44.6 (10-20); Calcium 7.6 mg/dl (8.5-10.1); Creatinine Clr Calc Pharmacy 76.5 ml/min; Est GFR (African American) 105.1; Est GFR (Non-African American) 90.7; Potassium 3.8 mmol/L (3.5-5.1)
--- NOTE | 2018-08-13 14:26 | Palliative Care Progress Note ---
Date of Service August 13, 2018 Assessment & Plan (1) Palliative care encounter: -73 year old male who has a history of multiple readmissions to the hospital related to sepsis which stems from pressure ulcers. This patient resides at [facility] since 04/2018 and has a complex history of recurrent UTI, with ESBL and MDR bacteria. Additional history includes schizophrenia, and contractions of unknown timeframe, osteomyelitis of his right hip and urethral abnormalities. The patient was transferred to the ED and subsequently the ICU for hypotension, and leukocytosis. -Patient is more awake today but remains confused and unable to participate in meaningful conversation. Pressors have been discontinued. Another abx added for ESBL. -A goal is to have him to return to [facility] under Hospice support, if this becomes a possibility based on his response to treatment. -Called patient's brother, Dk. No answer. -Plan will be to continue abx and see how patient does. May need two weeks or great of abx, will depend on cultures, etc. -Eventually, hospice/comfort care at group home would be appropriate and seems to be in line with goals of care. (2) Sepsis: -On multiple abx for ESBL. -Improved. Off pressors. (3) Schizoid personality disorder: -Currently not on an antipsychotic, consider adding as patient nonverbal and unable to communicate with us well -Psychiatric consult if needed for management. Psych has seen patient in the past. -Currently calm and non-aggressive at this time. Subjective -Patient is awake but confused. Answers some yes and no questions, but mostly answers "I don't know" to everything. -Left message for patient's brother. -Patient doing better today. Improving. Move out of ICU maybe tomorrow per Dr. Covington. Review of Systems Unobtainable due to cognitive status Physical Exam 2 Vital Signs (Past 24 Hours): Last Vital Signs Temp 36.7 C 08/12/18 20:00 Pulse 69 08/13/18 11:00 Resp 23 08/13/18 11:00 BP 90/50 L 08/13/18 11:00 Pulse Ox 98 08/13/18 11:00 Constitutional: + ill appearing, + frail appearing and comfortable ENMT: Ears: no hearing impairment Neck: normal visual inspection and trachea midline Respiratory: normal respiratory effort, lungs clear to auscultation Auscultation: + diminished lung sounds Cardiovascular: Rate/Rhythm: regular rate and regular rhythm Vessels: no JVD Extremities: + edema Gastrointestinal (Abdomen): Inspection/Auscultation: abdomen normal to inspection and normal bowel sounds; abdomen not distended Percussion/ Palpation: abdomen soft Neurologic: awake and + confused Psychiatric: Orientation: alert, oriented to person and cooperative; + not oriented to place and + not oriented to time Time Spent Midlevel 25 minutes with >50% of time spent with patient and ICU staff discussing plan of care and coordinating care. _ (1) Sepsis Sepsis type: sepsis due to unspecified organism Qualified Code(s): A41.9 - Sepsis, unspecified organism
--- NOTE | 2018-08-13 15:09 | Infectious Disease Progress Nt ---
Date of Service August 13, 2018 Assessment & Plan (1) Severe sepsis: potential sources gu vs wounds. continue emperic abx, follow cultures. would suggest addition of fluconazole for yeast growing from 1/3 culture. overall prognosis poor. continue supportive care. If blood cultures also growing E. coli, could narrow abx to daily ertapenem for 14-21 days. doubt wounds will improved with abx alone but agree high risk surgical candidate that would require transfer, family does not wish to transfer at this time. Subjective wbc improved, blood cultures growing gnr, urine culture growing ESBL+ E. coli. remains on imipenem. also on po vanco for previous c diff. afebrile. dnr noted. no plans for OR Physical Exam 2 Vital Signs (Past 24 Hours): Last Vital Signs Temp 36.8 C 08/13/18 12:00 Pulse 72 08/13/18 14:00 Resp 20 08/13/18 14:00 BP 97/52 L 08/13/18 14:00 Pulse Ox 96 08/13/18 14:00 Results & Data Laboratory Results Microbiology 08/11/18 21:08 Blood Blood Culture - Preliminary Gram negative bacilli 08/11/18 22:00 Urine,Straight Cath Urine Culture - Final Escherichia coli ESBL 08/11/18 21:15 Blood Blood Culture - Preliminary No growth to date.
--- NOTE | 2018-08-13 15:31 | Pharmacy Report ---
Pharmacy Abx Dose Short Note - Date of Service August 13, 2018 - Assessment & Plan Assessment * 73 year old M with sepsis 2nd decubitus ulcer vs. osteomyelitis vs. source and possible necrotizing fasciitis. Possible uretheral tear per CT. * Cultures / pathogen considerations * 08/08/18 urine culture with ESBL E. coli and C. albicans * 08/11/18 repeat urine culture with persistent ESBL E. coli * 08/11/18 Blood cultures - 1 of 2 with GNR * Previous recent cultures from recent osteomyelitis - MDR Morganella ( resistant to imipenem among many others) and Pseudomonas (resistant to aztreonam only) * Recent C. diff infection in April * Currently on imipenem, vancomycin IV, fluconazole IV, vancomycin po for C. diff prophylaxis, and clindamycin x48 hours for antitoxin effect. Gentamicin added 1/8 AM for double Gram negative coverage for GNR bacteremia. Was on ciprofloxacin as an outpatient since 08/09/18. * Will target higher dose of imipenem of 1000 mg IV q8h 2nd ESBL E. coli and adjust appropriately on a daily basis for renal function * C. diff considerations * Clindamycin especially with high risk for C. diff recurrance * Also on imipenem which increases risk * May or may not require addition of another antibiotic for empiric coverage of Morganella in previous infections * Renal * SCr now at/near baseline * Vancomycin pharmacokinetics / considerations * Goal trough 15-20 mcg/mL * Trough level of 19.9 mcg/mL is therapeutic. However, will check early repeat as renal function has significantly improved and therefore clearance of vancomycin main increase Plan * Increase imipenem to 500 mg IV q6h * Gentamicin 7 mg/kg (440 mg) IV x1. Random level 8 hrs later, scheduled for 1700. May be able to de-escalate tomorrow therefore ongoing order not entered. * Continue vancomycin 1000 mg IV q12h. Trough 08/14 @ 1330 Pharmacy will continue to follow and will adjust dose/frequency as necessary. Thank you.
--- NOTE | 2018-08-13 16:54 | Critical Care Progress Note ---
Date of Service August 13, 2018 Assessment & Plan (1) Severe sepsis: Impression: 1. Sepsis, I am not sure about the blood pressure reported previously, the patient is bedridden and with muscle contraction, will be extremely difficult to measure accurate blood pressure. 2. Multiple decub ulcers. 3. Recurrent UTI with MDR bacteria, urethral injury. 4. Schizophrenia. 5. History of myocardial infarction, not an issue at this point. 6. GERD. With eventration of the colon into the left side of the chest. Plan: 1. Continue with current antibiotics, appreciate pharmacy assistance. 2. Prophylaxis for C. difficile colitis. 3. Taper norepinephrine to off. 4. Continue with albumin infusion. 5. Surgical consult appreciated, patient is not a candidate for debridement. 6. Electrolyte replacement. 7. Nutrition consult. 8. The patient has IVC filter, he was also on Coumadin. 9. Start oral intake. 10. Fentanyl patch is in place. 11. DVT and GI prophylaxis. 12. Palliative care consult, the patient progress and quality of life are very poor. The patient is not a candidate for surgical intervention which I agree with. The goal should be directed towards alleviating the patient symptoms rather than treating series of infections that are not going to be eradicated. In that regard, palliative care consult was initiated. Discussed with the staff on rounds and details, critical care time spent with the patient was 45 minutes. Subjective The patient is a poor historian, review of system was not obtainable, the patient has improved and currently he is not supported by pressors. Blood pressure has been maintained. No pain issues reported. Physical Exam 2 Vital Signs (Past 24 Hours): Last Vital Signs Temp 36.8 C 08/13/18 12:00 Pulse 72 08/13/18 14:00 Resp 20 08/13/18 14:00 BP 97/52 L 08/13/18 14:00 Pulse Ox 96 08/13/18 14:00 Physical Exam: Vital signs are stable, S1-S2 regular rate and rhythm, lungs are clear, patient is cachectic, abdomen is benign, contracted lower extremities , skin changes due to venous stasis, scrotal edema, decub ulcer right hip. Results & Data Laboratory Results Improved leukocytosis, the rest of his labs are the same. Hematocrit has been stable as well.
--- NOTE | 2018-08-13 17:18 | Hospitalist Progress Note ---
Date of Service August 13, 2018 Assessment & Plan (1) Severe sepsis: SIRS plus lactic acid elevation plus ARF plus encephalopathy Secondary to bacteremia, UTI, possible bilateral hip osteomyelitis hx right hip osteomyelitis sp surgery [facility] (04/2018) and antibiotic Rx until (2017) Patient unable to follow-up with [facility] specialists post procedure/antibiotic completion due to financial constraints/transportation difficulties as per family. -- off Levophed, leukocytosis improving, mental status improved ID consulted on Vanco, Imipenem, Clinda ff up blood, urine cultures Ortho consulted -- if debridement required, [facility] Urethral Tear -- noted on CT scan, after patient had Navarro Cath insertion in the ER Urology consulted s/p Cysotoscopy, Navarro Cath reinserted- to remain for at least 2 week Hypertension -- currently in septic shock Schizoid personality/mood disorder PE DVT sp IVC filter placement on Coumadin -- coumadin held for possible procedures Vit K ordered INR pending Chronic anemia -- Hg decreased to 6.8 given pRBCs Hg improved 7.2 no overt signs of bleeding noted monitor DVT prophylaxis. SCDs while Coumadin on hold if INR less than 2 DNR as per patient's previous wishes as per brother Mr. Dk Winters. (Contact numbers [phone], [phone]) Disposition Palliative care consulted resident of [facility] Subjective ff up for septic shock seen resting in bed, awake, not oriented mostly staring blankly answers with yes or no, but seems mostly confused ROS difficult to perform denies pain, dyspnea as per RN, was eating his meals today no other symptoms/signs noted Physical Exam 2 Vital Signs (Past 24 Hours): Last Vital Signs Temp 36.8 C 08/13/18 12:00 Pulse 72 08/13/18 14:00 Resp 20 08/13/18 14:00 BP 97/52 L 08/13/18 14:00 Pulse Ox 96 08/13/18 14:00 Physical Exam: General-not oriented, not in distress, speaks in phrases with no effort or accessory muscle use Eyes- anicteric Neck- no JVD Lungs- clear breath sounds bilaterally Heart- normal rate, regular rhythm; no murmurs Abdomen- normal bowel sounds, nondistended, soft, nontender Extremities- no edema, no calf tenderness (uploaded photos of decubiti ulcers per Wound Care [facility] reviewed) Neuro- alert, not; no other gross focal neurologic deficits noted Skin- warm & dry Results & Data Laboratory Results Laboratory Results - last 24 hr 08/13/18 08/13/18 08/13/18 08:55 08:55 13:06 WBC 17.66 H RBC 2.66 L Hgb 7.2 L Hct 22.2 L MCV 83.5 MCH 27.1 MCHC 32.4 RDW Std Deviation 51.2 H RDW Coeff of Lucila 16.8 H Plt Count 236 MPV 9.4 Immature Gran % (Auto) 0.3 Neut % (Auto) 84.4 Lymph % (Auto) 6.7 [place] % (Auto) 6.2 Eos % (Auto) 2.3 Baso % (Auto) 0.1 Immature Gran # (Auto) 0.06 H Neut # (Auto) 14.89 H Lymph # (Auto) 1.19 L [place] # (Auto) 1.10 H Eos # (Auto) 0.41 Baso # (Auto) 0.01 RBC Morphology Unremarkable Sodium 142 Potassium 3.8 Chloride 114 H Carbon Dioxide 23 Anion Gap 5.0 BUN 34 H Creatinine 0.77 D Est Cr Clr Drug Dosing 76.5 Est GFR ( Amer) 105.1 Est GFR (Non-Af Amer) 90.7 BUN/Creatinine Ratio 44.6 H Glucose 86 Calcium 7.6 L Vancomycin Trough 19.9
[2018-08-13 17:24] LABS: INR 1.4 (0.9-1.1); Prothrombin Time 13.5 Seconds (9.0-12.0)
[2018-08-14] MEDS: CHECK FENTANYL PATCH PLACEMENT SCH ×4 (01:10→23:47)
[2018-08-14] MEDS: CLINDAMYCIN 600 MG in DEXTROSE 5% 50 ML IV SCH (01:11)
[2018-08-14] MEDS: IMIPENEM/CILASTATIN SODIUM 500 MG in DEXTROSE 5% 100 ML IV SCH ×5 (01:11→23:46)
[2018-08-14] MEDS: ALBUMIN 5% 250 ML IV SCH ×2 (01:39→19:56)
[2018-08-14] MEDS: VANCOMYCIN HCL 1,000 MG in SODIUM CHLORIDE 0.9% 250 ML IV SCH ×2 (02:12→18:41)
[2018-08-14] MEDS: LACTATED RINGER'S 1,000 ML IV SCH ×3 (03:26→17:42)
[2018-08-14] MEDS: LEVOTHYROXINE SODIUM 25 MCG TABLET PO SCH (06:11)
[2018-08-14] MEDS: DIVALPROEX DELAY RELEASE 500 MG TAB PO SCH (08:55)
[2018-08-14] MEDS: SACCHAROMYCES BOULARDII 250 MG CAP PO SCH ×2 (08:56→17:43)
[2018-08-14] MEDS: THIAMINE HCL 100 MG TAB PO SCH (08:56)
[2018-08-14] MEDS: PANTOprazole 40 MG TAB PO SCH (08:56)
[2018-08-14] MEDS: FOLIC ACID 1 MG TAB PO SCH (08:56)
[2018-08-14] MEDS: RASPBERRY SYRUP 5 ML UDP PO SCH ×2 (09:03→21:59)
[2018-08-14] MEDS: VANCOMYCIN HCL 125 MG/2.5ML SOLN PO SCH ×2 (09:03→21:59)
[2018-08-14 10:11] LABS: Creatinine Clr Calc Pharmacy 60.8 ml/min; Est GFR (Non-African American) 77.7
[2018-08-14] MEDS ORDERED: ALBUMIN 5% 250 ML IV ONE (12:00)
[2018-08-14] MEDS: FLUCONAZOLE 200 MG/100 ML BAG IV SCH (12:36)
--- NOTE | 2018-08-14 15:21 | Pharmacy Report ---
Pharmacy Abx Dose Short Note - Date of Service August 14, 2018 - Assessment & Plan Assessment 73 year old M receiving vancomycin, gentamicin, fluconazole and imipenem for treatment of sepsis 2/2 decubitus ulcer, osteomyelitis, ESBL UTI. Please see note from 08/13 for more details. SCr has bumped up a little today. Will need to be cautious with vancomycin and gentamicin dosing. BCx still only showing GNB. If this is E coli, expect to be the same organism from the urine and double gram negative coverage would not be necessary. Plan Vancomycin * Trough level of 22.9 mcg/mL is supratherapeutic * Change to 1000 mg IV every 14 hours. Patient did NOT receive 1400 dose today as it was placed on hold. New regimen to start @ 1800, when level expected to be ~18 mcg/mL. * Goal trough level for osteo : 15 to 20 mcg/mL * Trough level ordered for: 08/15/17 prior to the dose due at 2200. This will be prior to steady state but want to make sure we follow closely with changing renal function * SCr ordered daily x 3 days Gentamicin * Random level of 6.1, drawn 8 hours after start of infusion, indicates that q36h hour dosing will be appropriate * I spoke with Dr. Smith and received a verbal to stop the gentamicin if BCx results as E. coli. This will prevent an unnecessary dose of a nephrotoxic agent being given * If BCx not resulted, or is a different organism, gentamicin 440 mg (7 mg/kg based on actual body weight) will be given at 2100 tonight * Random level to be drawn w/ AM labs to evaluate per [place] nomogram Imipenem * Continue dose of 500 mg q6h for CrCl 60.8 mL/min. If SCr worsens, will need to decrease interval. Pharmacy will continue to follow and will adjust dose/frequency as necessary. Thank you.
--- NOTE | 2018-08-14 15:23 | Palliative Care Progress Note ---
Date of Service August 14, 2018 Assessment & Plan (1) Palliative care encounter: -73 year old male who has a history of multiple readmissions to the hospital related to sepsis which stems from pressure ulcers. This patient resides at [facility] since 04/2018 and has a complex history of recurrent UTI, with ESBL and MDR bacteria. Additional history includes schizophrenia, and contractions of unknown timeframe, osteomyelitis of his right hip and urethral abnormalities. The patient was transferred to the ED and subsequently the ICU for hypotension, and leukocytosis. -Patient is more awake today but remains confused. -Transferred out of ICU last night. -Given patient's severe infection, chronicity of his wounds, and non-surgical candidate, uncertain if infection can ever be totally cleared. -Question of goals of care. When palliative care SAS ARCHITECT spoke with patient's brother Dk on Sunday, plan was to get him back to SNF on hospice if possible. Need to confirm plan and ask about how to proceed with patient's abx regimen. -Will try again tomorrow. (2) Sepsis: -On multiple abx for ESBL. -Improved. Off pressors. (3) Schizoid personality disorder: -Currently not on an antipsychotic, consider adding as patient nonverbal and unable to communicate with us well -Psychiatric consult if needed for management. Psych has seen patient in the past. -Currently calm and non-aggressive at this time. Subjective Patient more awake today and better able to answer questions, but he is still confused. Attempted to call patient's brother again today, no answer and no voicemail. Review of Systems limited ROS due to confusion Respiratory: no cough and no dyspnea Cardiovascular: no chest pain and no edema Gastrointestinal: no abdominal pain, no nausea and no vomiting denies pain Physical Exam 2 Vital Signs (Past 24 Hours): Last Vital Signs Temp 36.6 C 08/14/18 07:22 Pulse 96 H 08/14/18 07:22 Resp 20 08/14/18 07:22 BP 170/73 H 08/14/18 07:22 Pulse Ox 93 08/14/18 07:22 Constitutional: + ill appearing, + frail appearing and comfortable ENMT: Ears: no hearing impairment Neck: normal visual inspection and trachea midline Respiratory: normal respiratory effort, lungs clear to auscultation Auscultation: + diminished lung sounds Cardiovascular: Rate/Rhythm: regular rate and regular rhythm Vessels: no JVD Extremities: + edema Gastrointestinal (Abdomen): Inspection/Auscultation: abdomen normal to inspection and normal bowel sounds; abdomen not distended Percussion/ Palpation: abdomen soft Neurologic: awake and + confused Psychiatric: Orientation: alert, oriented to person and cooperative; + not oriented to place and + not oriented to time Time Spent Midlevel 25 minutes with >50% of time spent at bedside with patient and speaking with physician to coordinate care. _ (1) Sepsis Sepsis type: sepsis due to unspecified organism Qualified Code(s): A41.9 - Sepsis, unspecified organism
[2018-08-14] MEDS ORDERED: Nursing to Pharmacy Communication ONE (15:32)
[2018-08-14] MEDS ORDERED: GENTAMICIN SULFATE 440 MG in DEXTROSE 5% 100 ML IV ONE (21:00)
[2018-08-14] MEDS: DIVALPROEX SODIUM SPRINKLE 125 MG CAP PO SCH (22:00)
--- NOTE | 2018-08-14 22:12 | Hospitalist Progress Note ---
Date of Service August 14, 2018 Assessment & Plan (1) Severe sepsis: Acute hypoxic respiratory failure in the setting of septic shock (SIRS plus lactic acid elevation plus acute kidney injury plus metabolic/septic encephalopathy, initially non responsive and hypotensive) Symptoms appear Secondary to bacteremia, UTI -respiratory symptoms resolved -transferred out of ICU on 08/13/18 and continued on IV Vancomycin and IV Imipenem and IV Gentamin -blood cultures at this time with 1 bottle gram positive bacilli and 1 bottle gram negative bacilli -urine culture with ESBL Ecoli -will continue IV Vancomycin and IV Imipenem and IV Gentamin -ICU doctor started patient on PO Vancomycin as prophlyaxis in case of risk of developing C.difficile while on multiple antibiotic, will continue PO Vancomycin -also has been on Fluconazole because of Dali in the urine, continue Fluconazole hx right hip osteomyelitis sp surgery [facility] (04/2018) and antibiotic Rx until (2017) Patient unable to follow-up with [facility] specialists post procedure/antibiotic completion due to financial constraints/transportation difficulties as per family. (No apparent osteomyelitis on 08/11/18 CT adbdomen exam There appears be prior resection of the right femoral head with heterotopic ossification within the bilateral hips. Small amount of gas within the right hip joint which appears to be extending from the right lateral decubitus ulcer. Therefore, this concerning for underlying chronic infection/septic arthritis. There is a right-sided decubitus ulcer which is in close contact with the right ischial tuberosity. There may be small amount of cortical destruction at the ischial tuberosity concerning for osteomyelitis. 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 complicates whether patient has had metabolic encelopathy and medical decision making is deferred to patient's brother Urethral Tear -- noted on CT scan, after patient had Navarro Cath insertion in the ER Urology consulted s/p Cysotoscopy, Navarro Cath reinserted- to remain for at least 2 week Acute Kidney Injury has resolved Hypertension -blood pressure stable PE DVT sp IVC filter placement on Coumadin -patient has had INR reversed in case of any need for surgical interventions but this is not likely at this time Chronic anemia -- Hg decreased to 6.8 given pRBCs Hg improved 7.2 no overt signs of bleeding noted will recheck CBC, if Hgb remains stable by tomorrow then can re-assess whether any role to continue resume coumadin Severe protein calories malnuitrition -engineering writer consult, add Boost to meals DVT prophylaxis. SCDs while Coumadin have been held DNR as per patient's previous wishes as per brother Mr. Dk Winters. (Contact numbers [phone], [phone]) Disposition Palliative care consulted resident of [facility] Subjective Patient was seen and examined on the medical delgado after he was transitioned out of the ICU at the night time of 08/13/18 Patient has not been in acute distress after being on medical delgado and while he answers with one to two word answers, it has been difficult to carry a long conversation with him in regards to his health or to assess his medical understanding. Patient expressed pain when being turned over to assess the multiple areas decubital ulcers Physical Exam 2 Vital Signs (Past 24 Hours): Last Vital Signs Temp 37.1 C 08/14/18 19:58 Pulse 90 08/14/18 19:58 Resp 18 08/14/18 19:58 BP 151/71 H 08/14/18 19:58 Pulse Ox 94 08/14/18 19:58 Physical Exam: General-not oriented, not in distress, speaks in phrases with no effort or accessory muscle use Eyes- anicteric Neck- no JVD Lungs- clear breath sounds bilaterally Heart- normal rate, regular rhythm; no murmurs Abdomen- normal bowel sounds, nondistended, soft, nontender Extremities- no edema, no calf tenderness (uploaded photos of decubiti ulcers per Wound Care SVC reviewed - includes ulcers stage IV of upper back and buttocks towards scrotal area) Neuro- alert, not; no other gross focal neurologic deficits noted Skin- warm & dry
[2018-08-15] MEDS: LACTATED RINGER'S 1,000 ML IV SCH ×4 (02:55→23:53)
[2018-08-15] MEDS: ALBUMIN 5% 250 ML IV SCH (04:13)
[2018-08-15] MEDS: IMIPENEM/CILASTATIN SODIUM 500 MG in DEXTROSE 5% 100 ML IV SCH ×2 (06:14→13:05)
[2018-08-15] MEDS: LEVOTHYROXINE SODIUM 25 MCG TABLET PO SCH (06:17)
[2018-08-15 07:53] LABS: Basophils # (auto) 0.03 K/uL (0-0.2); Basophils % (auto) 0.3 %; Eosinophils # (auto) 0.26 K/uL (0-0.5); Eosinophils % (auto) 2.9 %; Hematocrit (blood only) 23.8 % (42-52); Hemoglobin 7.6 g/dL (14.0-18.0); Immature Granulocytes # (auto) 0.05 K/uL (0.00-0.02); Immature Granulocytes % (auto) 0.6 %; Lymphocytes # (auto) 1.45 K/uL (1.2-3.4); Mean Corpuscular Hgb Conc 31.9 g/dL (32-36); Mean Corpuscular Volume 82.6 fL (80-100); Mean Platelet Volume 9.7 fL (7.4-10.4); Monocytes # (auto) 0.46 K/uL (0.11-0.59); Monocytes % (auto) 5.1 %; Neutrophils # (auto) 6.79 K/uL (1.4-6.5); Neutrophils % (auto) 75.1 %; Platelet Count 258 K/uL (130-400); RDW Coefficient of Variation 16.8 % (11.5-14.5); Red Blood Count 2.88 M/uL (4.7-6.1); White Blood Count 9.04 K/uL (4.8-10.8)
[2018-08-15 08:01] LABS: INR 1.3 (0.9-1.1); Prothrombin Time 13.3 Seconds (9.0-12.0)
[2018-08-15 08:21] LABS: Creatinine Clr Calc Pharmacy 80.7 ml/min; Est GFR (African American) 107.4; Est GFR (Non-African American) 92.7
[2018-08-15 08:35] LABS: RBC Morphology Unremarkable
[2018-08-15] MEDS: CHECK FENTANYL PATCH PLACEMENT SCH ×2 (09:15→17:03)
[2018-08-15] MEDS: VANCOMYCIN HCL 1,000 MG in SODIUM CHLORIDE 0.9% 250 ML IV SCH (09:16)
[2018-08-15] MEDS: DIVALPROEX SODIUM SPRINKLE 125 MG CAP PO SCH ×2 (09:17→21:35)
[2018-08-15] MEDS: FOLIC ACID 1 MG TAB PO SCH (09:17)
[2018-08-15] MEDS: PANTOprazole 40 MG TAB PO SCH (09:19)
[2018-08-15] MEDS: RASPBERRY SYRUP 5 ML UDP PO SCH ×2 (09:20→21:36)
[2018-08-15] MEDS: THIAMINE HCL 100 MG TAB PO SCH (09:20)
[2018-08-15] MEDS: VANCOMYCIN HCL 125 MG/2.5ML SOLN PO SCH ×2 (09:20→21:36)
[2018-08-15] MEDS: FLUCONAZOLE 200 MG/100 ML BAG IV SCH (13:05)
--- NOTE | 2018-08-15 13:34 | Pharmacy Report ---
Pharmacy Abx Dose Short Note - Date of Service August 15, 2018 - Assessment & Plan Assessment 73 year old M receiving vancomycin, gentamicin, fluconazole and imipenem for treatment of sepsis 2/2 decubitus ulcer, osteomyelitis, ESBL UTI. Now with ESBL bacteremia. Please see note from 08/13 for more details. SCr has improved today but will still need to be cautious with vancomycin dosing. BCx now showing ESBL E coli and GPB. Gentamicin will be d/c'd since there is no longer a need to double cover gram negatives. This will also prevent increased risk of nephrotoxicity while having two nephrotoxic agents on board. Plan Vancomycin * Continue 1 gm q14h * Dose given late this AM since I initially placed it on hold; therefore, subsequent doses have been re-timed * Will push trough level to tomorrow, with the 4th dose, as I do not anticipate high levels now that SCr has improved Imipenem * Continue 500 mg q6h for CrCl > 60 mL/min * Dr. Smith or ID to change to [place] when necessary Pharmacy will continue to follow and will adjust dose/frequency as necessary. Thank you.
--- NOTE | 2018-08-15 14:54 | Infectious Disease Progress Nt ---
Date of Service August 15, 2018 Assessment & Plan (1) Severe sepsis: potential sources gu vs wounds.will change to ertapenem x 14 days. discussed with primary. overall prognosis poor. doubt wounds will improved with abx alone but agree high risk surgical candidate that would require transfer, family does not wish to transfer at this time. Subjective wbc improved, blood cultures growing esbl e. coli urine culture growing ESBL+ E. coli. remains on imipenem. also on po vanco for previous c diff. afebrile. dnr noted. no plans for OR Physical Exam 2 Vital Signs (Past 24 Hours): Last Vital Signs Temp 37.3 C 08/15/18 14:44 Pulse 71 08/15/18 14:44 Resp 18 08/15/18 14:44 BP 134/62 08/15/18 14:44 Pulse Ox 95 08/15/18 14:44 Results & Data Laboratory Results Microbiology 08/11/18 21:08 Blood Blood Culture - Preliminary Escherichia coli ESBL 08/11/18 21:15 Blood Blood Culture - Preliminary Gram positive bacilli 08/11/18 22:00 Urine,Straight Cath Urine Culture - Final Escherichia coli ESBL
[2018-08-15] MEDS: ERTAPENEM SODIUM 1,000 MG in SODIUM CHLORIDE 0.9% 50 ML IV SCH (17:53)
--- NOTE | 2018-08-15 19:28 | Hospitalist Progress Note ---
Date of Service August 15, 2018 Assessment & Plan (1) Severe sepsis: Acute hypoxic respiratory failure in the setting of septic shock (SIRS plus lactic acid elevation plus acute kidney injury plus metabolic/septic encephalopathy, initially non responsive and hypotensive) Symptoms appear Secondary to ESBL bacteremia, UTI -respiratory symptoms resolved -transferred out of ICU on 08/13/18 and continued on IV Vancomycin and IV Imipenem and IV Gentamin which was continued to 08/15/18 -ICU doctor started patient on PO Vancomycin as prophlyaxis in case of risk of developing C.difficile while on multiple antibiotic, will continue PO Vancomycin -urine culture with ESBL Ecoli -admission cultures as ESBL bactermia -Infection disease service changing antibiotic to ertapenem x 14 days starting on -also has been on Fluconazole because of Dali in the urine, continue Fluconazole hx right hip osteomyelitis sp surgery [facility] [place] [place] (04/2018) and antibiotic Rx until (2017) Patient unable to follow-up with [facility] [place] [place] specialists post procedure/antibiotic completion due to financial constraints/transportation difficulties as per family. (No apparent osteomyelitis on 08/11/18 CT adbdomen exam There appears be prior resection of the right femoral head with heterotopic ossification within the bilateral hips. Small amount of gas within the right hip joint which appears to be extending from the right lateral decubitus ulcer. Therefore, this concerning for underlying chronic infection/septic arthritis. There is a right-sided decubitus ulcer which is in close contact with the right ischial tuberosity. There may be small amount of cortical destruction at the ischial tuberosity concerning for osteomyelitis. There is also a sacral decubitus ulcer within the left lateral hip with underlying soft tissue gas abutting the left greater trochanter.) Multiple decubital ulcers -not a good candidate for decubital ulcer debridements as per orthopedic surgical service evaluation on 08/12/18 and that Should any surgical intervention be considered, this should more appropriately be performed at the tertiary care center -palliative care has been in discussion with patient's next of kin but no recent updates -hospitalist have not been able to contact patient's next of kin -patient prefers no surgical debridement 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 complicates whether patient has had metabolic encelopathy and medical decision making has been deferred to patient' s brother Urethral Tear - noted on CT scan, after patient had Navarro Cath insertion in the ER Urology consulted s/p Cysotoscopy, Navarro Cath reinserted- to remain for at least 2 week Acute Kidney Injury has resolved Hypertension -blood pressure stable PE DVT sp IVC filter placement on Coumadin -patient has had INR reversed on this admission in case of any need for surgical interventions but this is not likely at this time -will resume coumadin as 5 mg daily for now Chronic anemia -- Hgb decreased to 6.8 given pRBCs Hgb improved 7.6 Severe protein calories malnuitrition -substation operator conversion consult, add Boost to meals DVT prophylaxis. SCDs while Coumadin have been held DNR as per patient's previous wishes as per brother Mr. Dk Winters. (Contact numbers [phone], [phone]) Disposition Palliative care consulted resident of [facility] Subjective Patient has not been in acute distress after being on medical delgado Patient is verbal has been difficult to carry a long conversation with him in regards to his health or to assess his medical understanding because he appears to lack comprehension about his health He did say that he would not want debridement of the decubital ulcers Patient expressed pain when being turned over to assess the multiple areas decubital ulcers Physical Exam 2 Vital Signs (Past 24 Hours): Last Vital Signs Temp 37 C 08/15/18 14:56 Pulse 70 08/15/18 14:56 Resp 18 08/15/18 14:56 BP 134/60 08/15/18 14:56 Pulse Ox 95 08/15/18 14:56 Physical Exam: General-not oriented, not in distress Eyes- EOMI Neck- no JVD Lungs- clear breath sounds bilaterally Heart- normal rate, regular rhythm; no murmurs Abdomen- normal bowel sounds, nondistended, soft, nontender Extremities- no edema, no calf tenderness (uploaded photos of decubiti ulcers per Wound Care reviewed - includes ulcers stage IV of upper back and buttocks towards scrotal area and examined at the bedside) Neuro: awake and alert
[2018-08-15] MEDS ORDERED: WARFARIN SOD 5 MG TAB PO ONE (19:34)
[2018-08-15] MEDS ORDERED: VANCOMYCIN TROUGH ONE (21:30)
[2018-08-15] MEDS: fentaNYL 12 MCG/HR TDSY TD SCH (21:31)
[2018-08-16] MEDS: CHECK FENTANYL PATCH PLACEMENT SCH ×4 (00:24→23:36)
[2018-08-16] MEDS: LEVOTHYROXINE SODIUM 25 MCG TABLET PO SCH (06:16)
[2018-08-16] MEDS: LACTATED RINGER'S 1,000 ML IV SCH ×3 (06:40→23:36)
[2018-08-16 08:42] LABS: Basophils # (auto) 0.03 K/uL (0-0.2); Basophils % (auto) 0.3 %; Eosinophils # (auto) 0.39 K/uL (0-0.5); Eosinophils % (auto) 4.2 %; Hematocrit (blood only) 28.7 % (42-52); Hemoglobin 9.1 g/dL (14.0-18.0); Immature Granulocytes # (auto) 0.05 K/uL (0.00-0.02); Immature Granulocytes % (auto) 0.5 %; Lymphocytes # (auto) 1.68 K/uL (1.2-3.4); Lymphocytes % (auto) 18.3 %; Mean Corpuscular Hgb Conc 31.7 g/dL (32-36); Mean Corpuscular Volume 83.4 fL (80-100); Mean Platelet Volume 9.4 fL (7.4-10.4); Monocytes # (auto) 0.66 K/uL (0.11-0.59); Monocytes % (auto) 7.2 %; Neutrophils # (auto) 6.37 K/uL (1.4-6.5); Neutrophils % (auto) 69.5 %; Platelet Count 311 K/uL (130-400); RDW Standard Deviation 51.2 fL (36.4-46.3); Red Blood Count 3.44 M/uL (4.7-6.1); White Blood Count 9.18 K/uL (4.8-10.8)
[2018-08-16 09:35] LABS: INR 1.2 (0.9-1.1); Prothrombin Time 12.3 Seconds (9.0-12.0)
[2018-08-16 09:38] LABS: Albumin Level 1.7 gm/dl (3.4-5.0); BUN Creatinine Ratio 20.5 (10-20); Calcium 7.2 mg/dl (8.5-10.1); Creatinine Clr Calc Pharmacy 89.3 ml/min; Est GFR (African American) 111.9; Est GFR (Non-African American) 96.6; Potassium 3.2 mmol/L (3.5-5.1)
[2018-08-16 09:40] LABS: Albumin Globulin Ratio 0.4 (0.9-2); Bilirubin,Total 0.4 mg/dl (0.2-1); Globulin 3.9 gm/dl (2.5-4.0); Total Protein 5.6 gm/dl (6.4-8.2)
[2018-08-16] MEDS: THIAMINE HCL 100 MG TAB PO SCH (09:52)
[2018-08-16] MEDS: FOLIC ACID 1 MG TAB PO SCH (09:52)
[2018-08-16] MEDS: DIVALPROEX SODIUM SPRINKLE 125 MG CAP PO SCH ×2 (09:52→21:35)
[2018-08-16] MEDS: PANTOprazole 40 MG TAB PO SCH (09:53)
[2018-08-16] MEDS: VANCOMYCIN HCL 125 MG/2.5ML SOLN PO SCH ×2 (09:56→21:34)
[2018-08-16] MEDS: RASPBERRY SYRUP 5 ML UDP PO SCH ×2 (09:56→21:35)
--- NOTE | 2018-08-16 11:09 | Palliative Care Progress Note ---
Date of Service August 16, 2018 Assessment & Plan (1) Palliative care encounter: -73 year old male who has a history of multiple readmissions to the hospital related to sepsis which stems from pressure ulcers. This patient resides at [facility] since 04/2018 and has a complex history of recurrent UTI, with ESBL and MDR bacteria. Additional history includes schizophrenia, and contractions of unknown timeframe, osteomyelitis of his right hip and urethral abnormalities. The patient was transferred to the ED and subsequently the ICU for hypotension, and leukocytosis. -Patient is more awake today but remains confused and unable to be sole decision maker. -Given patient's severe infection, chronicity of his wounds, and non-surgical candidate, uncertain if infection can ever be totally cleared. -I spoke with the patient's brother, Dk, @ [phone]. He states that he visited last night and he stated that he was better than his baseline mental status. -I discussed further plans for his goals of treatment and per pt brother, he was surprised at how well he was doing that he said "well, the underlying cause are the pressure ulcers, so could we transfer him to another facility for his wounds to be cleaned up"? -We discussed QUALITY OF LIFE and he was clear that if he is showing improvements like he was last night he would like to discuss a transfer. He did say he absolutely would consent to a PICC line for continued antibiotics. -I discussed with Dr. Smith, the hospitalist following him and he will reach out directly to discuss transfer and PICC consent, etc. -Patient t remain DO NOT RESUSCITATE -Palliative Performance Scale: 20% (2) Sepsis: -On multiple abx for ESBL. -Improved. Off pressors. -ID made IV abx recommendations which includes a 2 week IV abx regimen. -Based on Hospitalist conversation with pt brother, may proceed with attempted PICC placement vs transfer for wound debridement. (3) Schizoid personality disorder: -Currently not on an antipsychotic, consider adding as patient nonverbal and unable to communicate with us well -Psychiatric consult if needed for management. Psych has seen patient in the past. -Currently calm and non-aggressive at this time. Subjective Patient more awake today and better able to answer questions, but he is still confused. In speaking with the following Hospitalist, the plan is for 2 weeks IV antibiotics. A PICC would need to be placed for this and patient could return to [facility] for continued treatment, but we need to have discussion with patient's brother for consent/decision making. Patient was resting when I entered the room, but did open his eyes to name and was oriented to himself and location. Not confident in patient ability for full decision making and would defer to patient brother for direction. Please see A & P for further details. Physical Exam 2 Vital Signs (Past 24 Hours): Last Vital Signs Temp 36.5 C 08/16/18 07:30 Pulse 83 08/16/18 07:30 Resp 18 08/15/18 22:48 BP 170/85 H 08/16/18 07:30 Pulse Ox 96 08/16/18 07:30 Neck: trachea midline, no thyromegaly Respiratory: normal respiratory effort, lungs clear to auscultation Cardiovascular: Heart Sounds: normal S1, normal S2 and + murmur Extremities : no edema Gastrointestinal (Abdomen): Percussion/Palpation: + abdomen tender, + abdomen rigid and abdomen soft Skin: + wound (left hip), + dry skin and + excoriations Psychiatric: Orientation: alert Apperance: + disheveled Eye Contact: not poor eye contact Hallucinations: + visual hallucinations (per pt brother ) Insight: + severely impaired insight Judgement: + severely impaired judgement Genitourinary: + enlarged testicle (felix placed by Urology) Time Spent Midlevel Total time spent 45 minutes with > 50% of that time reviewing the chart, assessing the patient, discussing plan of care with IDT and GOALS OF CARE on the phone with the patients brother. _ (1) Sepsis Sepsis type: sepsis due to unspecified organism Qualified Code(s): A41.9 - Sepsis, unspecified organism
[2018-08-16] MEDS ORDERED: VANCOMYCIN TROUGH ONE (12:30)
[2018-08-16] MEDS ORDERED: Nursing to Pharmacy Communication ONE (15:46)
[2018-08-16] MEDS ORDERED: WARFARIN SOD 5 MG TAB PO SCH (16:00)
--- NOTE | 2018-08-16 17:15 | Hospitalist Progress Note ---
Date of Service August 16, 2018 Assessment & Plan (1) Severe sepsis: Acute hypoxic respiratory failure in the setting of septic shock (SIRS plus lactic acid elevation plus acute kidney injury plus metabolic/septic encephalopathy, initially non responsive and hypotensive) Symptoms appear Secondary to ESBL bacteremia, UTI -respiratory symptoms resolved -transferred out of ICU on 08/13/18 and continued on IV Vancomycin and IV Imipenem and IV Gentamin which was continued to 08/15/18 -ICU doctor started patient on PO Vancomycin as prophlyaxis in case of risk of developing C.difficile while on multiple antibiotic, will continue PO Vancomycin -urine culture with ESBL Ecoli -admission cultures as ESBL bactermia -Infection disease service changing antibiotic to ertapenem x 14 days starting on 08/15/18, continue ertapenem -also has been on Fluconazole because of Dali in the urine, continue Fluconazole hx right hip osteomyelitis sp surgery [facility] (04/2018) and antibiotic Rx until (2017) Patient unable to follow-up with [facility] specialists post procedure/antibiotic completion due to financial constraints/transportation difficulties as per family. (No apparent osteomyelitis on 08/11/18 CT adbdomen exam There appears be prior resection of the right femoral head with heterotopic ossification within the bilateral hips. Small amount of gas within the right hip joint which appears to be extending from the right lateral decubitus ulcer. Therefore, this concerning for underlying chronic infection/septic arthritis. There is a right-sided decubitus ulcer which is in close contact with the right ischial tuberosity. There may be small amount of cortical destruction at the ischial tuberosity concerning for osteomyelitis. There is also a sacral decubitus ulcer within the left lateral hip with underlying soft tissue gas abutting the left greater trochanter.) Schizoid personality/mood disorder -presence of this personality disorder complicates whether patient has had metabolic encelopathy and medical decision making had been previously deferred to patient's brother -08/16/18 Hospitalist met with patient's brother Gina reports that patient's mental status has been the best that it has been in a while. Patient appears to have decision making capacity. After discussing at length about hospital course and code status, patient reports that he would allow FULL CODE resuscitation status and allow for chest compression, defibrillation, and intubation in emergency situation. Multiple decubital ulcers -not a good candidate for decubital ulcer debridements as per orthopedic surgical service evaluation on 08/12/18 and that Should any surgical intervention be considered, this should more appropriately be performed at the tertiary care center -08/16/18 Although patient's brother Reginald is advocating for patient to be evaluated at a tertiary center for possible debridement of skin ulcers, the patient has declined and would like more time to think about it. Patient's brother Reginald also noted that it is the patient's choice. patient prefers no surgical debridement Urethral Tear - noted on CT scan, after patient had Navarro Cath insertion in the ER Urology consulted s/p Cysotoscopy, Navarro Cath reinserted- to remain for at least 2 week Acute Kidney Injury has resolved Hypertension -blood pressure stable Severe protein calories malnuitrition -marketing analyst consult, add Boost to meals Chronic anemia - Hgb decreased to 6.8 given pRBCs Hgb improved to 7.6 and now is 9 PE DVT sp IVC filter placement on Coumadin -patient has had INR reversed on this admission in case of any need for surgical interventions but this is not likely at this time -continue coumadin as 5 mg daily which was restarted on 08/15/18 DVT prophylaxis. SCDs / coumadin Code Status is Full Code as of starting on 08/16/18 patient's brother Mr. Dk Gray (Contact numbers [phone], [phone]) Subjective Hospitalist met with patient's brother Reginald and Reginald reports that patient' s mental status has been the best that it has been in a while. Patient appears to have decision making capacity. After discussing at length about hospital course and code status, patient reports that he would allow FULL CODE resuscitation status and allow for chest compression, defibrillation, and intubation in emergency situation. Although patient's brother Reginald is advocating for patient to be evaluated at a tertiary center for possible debridement of skin ulcers, the patient has declined and would like more time to think about it. Patient's brother Reginald also noted that it is the patient's choice. Patient denies symptoms of chest pain or shortness of breath. Denies vomiting Physical Exam 2 Vital Signs (Past 24 Hours): Last Vital Signs Temp 36.6 C 08/16/18 15:04 Pulse 83 08/16/18 15:04 Resp 18 08/16/18 15:04 BP 161/84 H 08/16/18 15:04 Pulse Ox 96 08/16/18 15:04 Physical Exam: General- oriented and verbal, not in distress Eyes- EOMI Neck- no JVD Lungs- clear breath sounds bilaterally Heart- normal rate, regular rhythm; no murmurs Abdomen- normal bowel sounds, nondistended, soft, nontender Extremities- no edema, no calf tenderness (uploaded photos of decubiti ulcers per Wound Care reviewed - includes ulcers stage IV of upper back and buttocks towards scrotal area and examined at the bedside) Neuro: awake and alert
[2018-08-16] MEDS: ERTAPENEM SODIUM 1,000 MG in SODIUM CHLORIDE 0.9% 50 ML IV SCH (17:23)
[2018-08-16] MEDS: POTASSIUM CHLORIDE / WTR 10 MEQ/100 ML PLCT IV SCH ×4 (18:14→21:38)
[2018-08-17] MEDS: LACTATED RINGER'S 1,000 ML IV SCH ×3 (06:08→15:37)
[2018-08-17] MEDS: LEVOTHYROXINE SODIUM 25 MCG TABLET PO SCH (06:09)
[2018-08-17 08:35] LABS: Basophils # (auto) 0.02 K/uL (0-0.2); Basophils % (auto) 0.2 %; Eosinophils # (auto) 0.51 K/uL (0-0.5); Eosinophils % (auto) 6.1 %; Hematocrit (blood only) 25.9 % (42-52); Hemoglobin 8.2 g/dL (14.0-18.0); Immature Granulocytes # (auto) 0.05 K/uL (0.00-0.02); Immature Granulocytes % (auto) 0.6 %; Lymphocytes % (auto) 24.1 %; Mean Corpuscular Hgb Conc 31.7 g/dL (32-36); Mean Corpuscular Volume 83.8 fL (80-100); Mean Platelet Volume 9.6 fL (7.4-10.4); Monocytes # (auto) 0.56 K/uL (0.11-0.59); Monocytes % (auto) 6.7 %; Neutrophils # (auto) 5.16 K/uL (1.4-6.5); Neutrophils % (auto) 62.3 %; Platelet Count 356 K/uL (130-400); RDW Coefficient of Variation 17.3 % (11.5-14.5); RDW Standard Deviation 52.5 fL (36.4-46.3); Red Blood Count 3.09 M/uL (4.7-6.1)
[2018-08-17 08:51] LABS: INR 1.3 (0.9-1.1); Prothrombin Time 13.4 Seconds (9.0-12.0)
[2018-08-17 09:04] LABS: BUN Creatinine Ratio 15.4 (10-20); Calcium 7.3 mg/dl (8.5-10.1); Creatinine Clr Calc Pharmacy 92.1 ml/min; Est GFR (African American) 113.4; Est GFR (Non-African American) 97.8; Potassium 3.4 mmol/L (3.5-5.1)
[2018-08-17] MEDS: RASPBERRY SYRUP 5 ML UDP PO SCH (09:09)
[2018-08-17] MEDS: THIAMINE HCL 100 MG TAB PO SCH (09:09)
[2018-08-17] MEDS: FOLIC ACID 1 MG TAB PO SCH (09:09)
[2018-08-17] MEDS: DIVALPROEX SODIUM SPRINKLE 125 MG CAP PO SCH (09:09)
[2018-08-17] MEDS: PANTOprazole 40 MG TAB PO SCH (09:09)
[2018-08-17] MEDS: CHECK FENTANYL PATCH PLACEMENT SCH ×2 (09:15→15:36)
[2018-08-17 09:21] LABS: Hypochromasia Present
[2018-08-17] MEDS: VANCOMYCIN HCL 125 MG/2.5ML SOLN PO SCH (09:30)
[2018-08-17] MEDS: MAGNESIUM SULFATE / D5W 1 GM/100 ML BAG IV SCH ×3 (14:31→16:46)
--- NOTE | 2018-08-17 14:52 | Hospitalist Progress Note ---
Date of Service August 17, 2018 Assessment & Plan (1) Severe sepsis: Acute hypoxic respiratory failure in the setting of septic shock (SIRS plus lactic acid elevation plus acute kidney injury plus metabolic/septic encephalopathy, initially non responsive and hypotensive) Symptoms appear Secondary to ESBL bacteremia, UTI -respiratory symptoms resolved -transferred out of ICU on 08/13/18 and continued on IV Vancomycin and IV Imipenem and IV Gentamin which was continued to 08/15/18 -ICU doctor started patient on PO Vancomycin as prophlyaxis in case of risk of developing C.difficile while on multiple antibiotic, will continue PO Vancomycin -urine culture with ESBL Ecoli -admission cultures as ESBL bactermia - had been on Fluconazole from 08/12/18 to 08/15/18 because of Dali in the urine -Infection disease service changing antibiotic to ertapenem x 14 days starting on 08/15/18, continue ertapenem hx right hip osteomyelitis sp [place] [facility] [place] and antibiotic Rx until (2017) Patient unable to follow-up with [facility] specialists post procedure/antibiotic completion due to financial constraints/transportation difficulties as per family. (No apparent osteomyelitis on 08/11/18 CT adbdomen exam There appears be prior resection of the right femoral head with heterotopic ossification within the bilateral hips. Small amount of gas within the right hip joint which appears to be extending from the right lateral decubitus ulcer. Therefore, this concerning for underlying chronic infection/septic arthritis. There is a right-sided decubitus ulcer which is in close contact with the right ischial tuberosity. There may be small amount of cortical destruction at the ischial tuberosity concerning for osteomyelitis. There is also a sacral decubitus ulcer within the left lateral hip with underlying soft tissue gas abutting the left greater trochanter.) Schizoid personality/mood disorder -presence of this personality disorder complicates whether patient has had metabolic encelopathy and medical decision making had been previously deferred to patient's brother -08/16/18 Hospitalist met with patient's brother Reginald and Reginald reports that patient's mental status has been the best that it has been in a while. Patient appears to have decision making capacity. After discussing at length about hospital course and code status, patient reports that he would allow FULL CODE resuscitation status and allow for chest compression, defibrillation, and intubation in emergency situation. Multiple decubital ulcers -not a good candidate for decubital ulcer debridements as per orthopedic surgical service evaluation on 08/12/18 and that Should any surgical intervention be considered, this should more appropriately be performed at the tertiary care center -08/16/18 Although patient's brother Reginald is advocating for patient to be evaluated at a tertiary center for possible debridement of skin ulcers, the patient has declined and would like more time to think about it. Patient's brother Regniald also noted that it is the patient's choice. -08/17/18: patient and patient's brother in agreement about surgical evaluation a tertiary [facility] Hospitalist discussed the case with Dr. James who is the orthopedic surgeon at [facility] and Dr. Martino who is the accepting phyisican at [facility] medical service Urethral Tear with swollen scrotum - noted on CT scan, after patient had Felix Cath insertion in the ER Urology consulted, s/p Cysotoscopy, Felix Cath reinserted- to remain for at least 2 week as per their note on 08/12/18 -swollen scrotum likely from hypoalbumineria Acute Kidney Injury has resolved Hypertension -blood pressure stable Severe protein calories malnuitrition -associate publisher consult, add Boost to meals Chronic anemia - Hgb decreased to 6.8 given pRBCs; Hgb improved to 7.6 -current Hgb and now is 8.2 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 SCDs Code Status is Full Code as of starting on 08/16/18 patient's brother Mr. Dk Gray is patient's next of kin and medical advocate [phone] #1 number to call: WORK [phone] from [phone] #2 number to call: HOME [phone] #3 number to call: CELL: [phone] Subjective Hospitalist interviewed patient today and patient indicated that he would like to have his care continued at [facility] in [place]. Hospitalist explained that [facility] transfer would be more indicated if he is interested in surgical evaluation of debridement of ulcers. Patient agreed. Patient's brother Reginald also in agreement that patient should go to [facility] in [place] for surgical evaluation Hospitalist discussed the case with Dr. James who is the orthopedic surgeon at [facility] and Dr. Martino who is the accepting phyisican at [facility] medical service Patient denies symptoms of chest pain or shortness of breath. Denies vomiting. Physical Exam 2 Vital Signs (Past 24 Hours): Last Vital Signs Temp 36.8 C 08/17/18 08:27 Pulse 71 08/17/18 08:27 Resp 18 08/17/18 08:27 BP 133/72 08/17/18 08:27 Pulse Ox 96 08/17/18 10:07 Constitutional: + thin Eyes: PERRL, conjunctivae normal, anicteric sclerae ENMT: external ear and nose normal, oropharynx normal Neck: normal visual inspection and trachea midline Respiratory: normal respiratory effort, lungs clear to auscultation Cardiovascular: RRR, no murmur, no edema Gastrointestinal (Abdomen): normal bowel sounds, soft, nontender, no hepatosplenomegaly Musculoskeletal: Head/Neck/Chest: normocephalic and head atraumatic Skin: + ulcer (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
--- NOTE | 2018-08-17 17:54 | Discharge Summary ---
Date of Service August 17, 2018 Admission HPI Per Admitting Provider History obtained from patient, family, and records. Patient is not a reliable historian. Medical history significant for hypertension, schizoid personality/mood disorder status post ECT, PE DVT sp IVC filter placement on Coumadin, chronic anemia baseline hemoglobin 8-9, past history of C. difficile, chronic decubitus wounds, osteomyelitis of the right hip status post surgery, hypothyroidism, past tobacco abuse Patient admitted at [facility] February 2018 for septic shock secondary to extensive decubitus ulcers with maggot infiltration. Patient discharged to LTAC March 2018. Left lower extremity DVT noted during LTAC stay. Coumadin initiated. Patient transferred to [facility] in [place] April 2018. Right femoral neck noted to be exposed along w/ bilateral thigh buttock and lower extremity ulcers during stay at the shelter. Patient subsequently transferred to [facility]. As per admission note, multiple skin ulcers noted on patient's lower extremities and right posterior rib. Right thigh wound was unstageable with R femoral head exposed through gaping wound, left thigh wound had left femoral head exposed. Patient admitted with a diagnosis of osteomyelitis and chronic wounds. Patient subsequently underwent I&D of decubiti wounds and right femoral head resection. Polymicrobial operative cultures grew Enterococcus species, MSSA, gram-negative rods and anaerobes. Patient completed ceftriaxone metronidazole and vancomycin antibiotic courses via PICC line until June 2018. Patient unable to [place] [facility] [place] (Dr. Coelho) postop due to financial constraints posed by transportation difficulties from [place] to [place] as per patient's brother. As per patient's family, patient started on antibiotic for UTI the last few days (ESBL E. coli as per records.) Around dinnertime tonight at the heart side, patient noted to be hypotensive SBP 80s and febrile, temperature 101.7. Patient noted to be dusky in color and respirations shallow as per records. O2 sats 50s on room air as per records. Felix draining bright red blood/dark red clots of blood. At the ER, SBP noted to be 90-100s. IV Vancomycin and Zosyn given for sepsis. 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 Admission Exam Per Admitting Provider GENERAL: Comfortable, incoherent, no respiratory distress, cachectic, lying on the right lateral decubitus position SKIN: Pallor , warm HEENT: Pale palpebral conjunctivae, no ptosis, dry buccal mucosa NECK : Supple, no tenderness CHEST : Decreased breath sounds , no tenderness HEART : Tachycardic , no obvious murmurs ABDOMEN: Scaphoid abdomen , nontender EXTREMITIES : Dressing soaked with yellow drainage overlying left hip, minimal left hip tenderness NEUROLOGIC : Incoherent , no facial asymmetry, gait and stance not assessed Principal Diagnosis initial admission for severe sepsis with septic shock, ESBL bacteremia, multiple stage IV decubital ulcers, tear of urethra and has felix catheter, Schizoid personality/mood disorder, bed bound, leg contractures, history of thromboembolism with IVC filter, anemia, Hypomagensemia Discharge Exam Constitutional + thin Eyes PERRL, conjunctivae normal, anicteric sclerae ENMT external ear and nose normal, oropharynx normal Neck normal visual inspection and trachea midline Respiratory normal respiratory effort, lungs clear to auscultation Cardiovascular RRR, no murmur, no edema Gastrointestinal (Abdomen) normal bowel sounds, soft, nontender, no hepatosplenomegaly Musculoskeletal Head/Neck/Chest: normocephalic and head atraumatic Skin + ulcer (multiple stage IV ulcers of buttock area - 5 ulcers of buttocks and sacral area and 1 ulcer of right upper back with tunneling of some of the ulcers ) Neurologic PERRL, EOMI, accommodation nl, no face palsy, no dysarthria Psychiatric Orientation: alert and cooperative Genitourinary + penis abnormality (felix, scrotal swelling) Discharge Data Allergies Allergy/AdvReac Type Severity Reaction Status Date / Time iodine Allergy Unknown Unknown Verified 08/11/18 21:43 onion AdvReac Intermediate vomitting Verified 08/11/18 21:43 Consultations 08/11/18 22:31 ED Decision to Admit Stat 08/12/18 02:09 Consult Orthopedic Surgery Routine 08/12/18 04:28 Consult Case Management - Discharge Planning Routine Consult Modern And Contemporary Art Curator Routine 08/12/18 04:34 Consult Infectious Diseases Routine 08/12/18 09:45 Consult Infectious Diseases Routine Consult Urology Routine 08/12/18 12:42 Consult Palliative Care Routine 08/17/18 14:23 Burn CD for patient Stat Ordered Studies 08/11/18 21:04 CT head/brain wo con Stat 08/11/18 23:31 CT abd pelvis wo con Urgent Hospital Course (1) Severe sepsis: comments Patient is accept to [facility] in [place] under Dr. Martino hospitalist for further orthopedic surgical debridement of multiple stage IV decubital ulcers was treated in [facility] for septic shock Currently on Ertapenem 1 gram q24 hours as of Infectious disease service started on starting on 08/15/18, should continue for 2 of 2 weeks patient also on vancomycin 125 mg BID as prophylaxis in case he develops C.difficile while he was previously on multiple antibiotics but he does not have confirmed C.difficile on this admission although he did have that in the past admission in April 2018 recently started on Levoythroxine for hypothyroidism on this admission although the TSH was performed in the context of severe illness recently receiving magnesium for hypomagnesemia. Other issues as listed in discharge summary Acute hypoxic respiratory failure in the setting of septic shock (SIRS plus lactic acid elevation plus acute kidney injury plus metabolic/septic encephalopathy, initially non responsive and hypotensive) Symptoms appear Secondary to ESBL bacteremia, UTI -respiratory symptoms resolved -transferred out of ICU on 08/13/18 and continued on IV Vancomycin and IV Imipenem and IV Gentamin which was continued to 08/15/18 -ICU doctor started patient on PO Vancomycin as prophlyaxis in case of risk of developing C.difficile while on multiple antibiotic, will continue PO Vancomycin -urine culture with ESBL Ecoli -admission cultures as ESBL bactermia - had been on Fluconazole from 08/12/18 to 08/15/18 because of Dali in the urine -Infection disease service changing antibiotic to ertapenem x 14 days starting on 08/15/18, continue ertapenem hx right hip osteomyelitis sp [place] [facility] [place] and antibiotic Rx until (2017) Patient unable to follow-up with [facility] [place] post procedure/antibiotic completion due to financial constraints/transportation difficulties as per family. (No apparent osteomyelitis on 08/11/18 CT adbdomen exam There appears be prior resection of the right femoral head with heterotopic ossification within the bilateral hips. Small amount of gas within the right hip joint which appears to be extending from the right lateral decubitus ulcer. Therefore, this concerning for underlying chronic infection/septic arthritis. There is a right-sided decubitus ulcer which is in close contact with the right ischial tuberosity. There may be small amount of cortical destruction at the ischial tuberosity concerning for osteomyelitis. There is also a sacral decubitus ulcer within the left lateral hip with underlying soft tissue gas abutting the left greater trochanter.) Schizoid personality/mood disorder -presence of this personality disorder complicates whether patient has had metabolic encelopathy and medical decision making had been previously deferred to patient's brother -08/16/18 Hospitalist met with patient's brother Reginald and Reginald reports that patient's mental status has been the best that it has been in a while. Patient appears to have decision making capacity. After discussing at length about hospital course and code status, patient reports that he would allow FULL CODE resuscitation status and allow for chest compression, defibrillation, and intubation in emergency situation. Multiple decubital ulcers -not a good candidate for decubital ulcer debridements as per orthopedic surgical service evaluation on 08/12/18 and that Should any surgical intervention be considered, this should more appropriately be performed at the tertiary care center -08/16/18 Although patient's brother Reginald is advocating for patient to be evaluated at a tertiary center for possible debridement of skin ulcers, the patient has declined and would like more time to think about it. Patient's brother Reginald also noted that it is the patient's choice. -08/17/18: patient and patient's brother in agreement about surgical evaluation a tertiary [facility] Hospitalist discussed the case with Dr. James who is the orthopedic surgeon at [facility] and Dr. Martino who is the accepting phyisican at [facility] medical service Urethral Tear with swollen scrotum - noted on CT scan, after patient had Felix Cath insertion in the ER Urology consulted, s/p Cysotoscopy, Felix Cath reinserted- to remain for at least 2 week as per their note on 08/12/18 -swollen scrotum likely from hypoalbumineria Acute Kidney Injury has resolved Hypertension -blood pressure stable Severe protein calories malnuitrition -yoke setter consult, add Boost to meals Chronic anemia - Hgb decreased to 6.8 given pRBCs; Hgb improved to 7.6 -current Hgb and now is 8.2 PE DVT sp IVC filter placement on Coumadin -patient has had INR reversed on this admission in case of any need for surgical interventions -coumadin as 5 mg daily which was restarted on 08/15/18 and 08/16/18 as initially no plans for surgical interventions -since patient has been accepted to [facility] for surgical evaluation, will hold further warfarin DVT prophylaxis. SCDs Code Status is Full Code as of starting on 08/16/18 patient's brother Mr. Dk Gray is patient's next of kin and medical advocate [phone] #1 number to call: WORK [phone] from [phone] #2 number to call: HOME [phone] #3 number to call: CELL: [phone] Total Time Total Time Spent Total Time Spent (In Minutes): 40 minutes Total Time Includes: Examination of the Patient, Discharge Planning and Medication Reconciliation Discharge Plan Discharge Items Patient Disposition: Transfer Acute Care Hospital Reason For Visit: SEPSIS Discharge Diagnosis: initial admission for severe sepsis with septic shock, ESBL bacteremia, multiple stage IV decubital ulcers, tear of urethra and has felix catheter, Schizoid personality/mood disorder, bed bound, leg contractures , history of thromboembolism with IVC filter, anemia, Hypomagensemia Condition: Fair Discharge Goals: Improve disease control Activity: Per 'Additional Instructions' section Non-emergency contact: Specialist Call non-emergency contact if: you have any medication questions Diet: Regular Diet Texture: Pureed (blended smooth) Addtl Provider Instructions: Patient is accept to [facility] in [place] under Dr. Martino hospitalist for further orthopedic surgical debridement of multiple stage IV decubital ulcers was treated in [facility] for septic shock Currently on Ertapenem 1 gram q24 hours as of Infectious disease service started on starting on 08/15/18, should continue for 2 of 2 weeks patient also on vancomycin 125 mg BID as prophylaxis in case he develops C.difficile while he was previously on multiple antibiotics but he does not have confirmed C.difficile on this admission although he did have that in the past admission in April 2018 recently started on Levoythroxine for hypothyroidism on this admission although the TSH was performed in the context of severe illness recently receiving magnesium for hypomagnesemia. Other issues as listed in discharge summary Prescriptions: New vancomycin 1,000 mg Recon Soln 125 mg PO BID 10 Days Qty: 20 RF: 0 levothyroxine [Synthroid] 25 mcg Tablet 25 mcg PO DAILYBB 30 Days Qty: 30 RF: 0 magnesium oxide 400 mg (241.3 mg magnesium) Tablet 400 mg PO BID 10 Days Qty: 20 RF: 0 Continue thiamine HCl (vitamin B1) 100 mg Tablet 100 mg PO QAM RF: 0 tramadol 50 mg Tablet 50 mg PO Q6H PRN (Reason: Pain) RF: 0 magnesium hydroxide [Milk of Magnesia] 400 mg/5 mL Suspension 30 ml PO DIRECTED PRN (Reason: Constipation) RF: 0 bisacodyl [Dulcolax (bisacodyl)] 10 mg Suppository 10 mg NV DIRECTED PRN (Reason: Constipation) RF: 0 pantoprazole 40 mg Tablet,Delayed Release (Dr/Ec) 40 mg PO QAM RF: 0 divalproex 125 mg Tablet,Delayed Release (Dr/Ec) 500 mg PO BID RF: 0 sodium phosphates [Fleet Enema] 19-7 gram/118 mL Enema 118 ml NV DIRECTED PRN (Reason: Constipation) RF: 0 folic acid 1 mg Tablet 1 mg PO QAM RF: 0 acetaminophen 325 mg Capsule 325 mg PO Q6H MDD 3 GRAM/24 HOURS PRN (Reason: Fever Or Pain) RF: 0 metoprolol succinate 50 mg Tablet Extended Release 24 Hr 50 mg PO QAM RF: 0 ferrous sulfate 325 mg (65 mg iron) Tablet 325 mg PO BID17 RF: 0 ergocalciferol (vitamin D2) [Vitamin D2] 50,000 unit Capsule 50,000 unit PO WK RF: 0 fentanyl 25 mcg/hr Patch 72 Hour 1 patch TRANSDERMAL Q72H RF: 0 vitamin B [id number] cit 0.8-15 mg Tablet 1 tab PO QAM RF: 0 Liquid Protein Suppliment 60 ml PO BID17 RF: 0 Discontinued melatonin 3 mg Tablet 3 mg PO HS RF: 0 oxycodone 5 mg Tablet 5 mg PO Q6 RF: 0 cholestyramine (with sugar) [Questran] 4 gram Powder In Packet 4 g PO BID17 RF: 0 Saccharomyces boulardii [Florastor] 250 mg Capsule 250 mg PO BID17 RF: 0 2 Daryl Hn Po 60 ml PO ACHS RF: 0 baclofen 10 mg Tablet 5 mg PO TIDM RF: 0 Stand-Alone Forms: [facility] Discharge Orders: Discharge Order (Routine); Ordered 08/17/18 Ordered By: Kyle Smith Admission Data Admit Date/Time: 08/11/18 23:35 Attending Provider: Kyle Smith Admit Provider: David King Primary Care Provider: Sameera Villa Other Providers: Charles Ramirez ; Zulema Maxwell ; David King ; Reginald Lindsey ; Pablo Frank ; Romeo Gomez ; Beryl Holley ; Kit Kelley ; Jennifer Callaway ; Syed Pak ; Jamie Keen ; Jordan Crawley ; Andrea Young Jr ; Jamie Chatterjee ; Aashish Peterson. ; Jordan Perry ; Shreyas Merchant ; Tapan Moran ; Kwadwo Lucas ; Davidson Smith ; Carmelo Clifton ; Uvaldo Freedman ; Eliezer Munoz ; Jennifer Mcfarlane ; Dinesh uMjica ; Jeff Summers ; David Gloria ; Bhupendra Echeverria ; Diana Macias ; Jordan Weinberg ; Natalie Low Service: Intensive Care Unit
[2018-08-17] MEDS: ERTAPENEM SODIUM 1,000 MG in SODIUM CHLORIDE 0.9% 50 ML IV SCH (18:51)
[2018-08-17] MEDS ORDERED: MAGNESIUM OXIDE 400 MG TAB PO SCH (21:00)
== END 2018-08-17 20:00 | disposition short-term general hospital (02) | DRG 871 ==
LOC: ED 20:53 → 2W 23:35 → SUATTDRO 23:35 → 2W 08-12 01:00 → 1E 08-12 03:30 → 4W 08-14 00:46

== ENCOUNTER 2018-10-07 01:24 | Inpatient (IN) ==
[2018-10-07 03:05] LABS: Hematocrit (blood only) 25.1 % (42-52); Mean Corpuscular Hgb Conc 31.9 g/dL (32-36); Mean Corpuscular Volume 80.2 fL (80-100); Mean Platelet Volume 9.1 fL (7.4-10.4); Platelet Count 495 K/uL (130-400); RDW Coefficient of Variation 17.8 % (11.5-14.5); RDW Standard Deviation 52.6 fL (36.4-46.3); Red Blood Count 3.13 M/uL (4.7-6.1); White Blood Count 11.78 K/uL (4.8-10.8)
[2018-10-07 03:27] LABS: Basophils # (auto) 0.02 K/uL (0-0.2); Basophils % (auto) 0.2 %; Echinocytes 1+; Eosinophils # (auto) 0.34 K/uL (0-0.5); Eosinophils % (auto) 2.9 %; Immature Granulocytes # (auto) 0.02 K/uL (0.00-0.02); Immature Granulocytes % (auto) 0.2 %; Lymphocytes % (auto) 11.9 %; Monocytes # (auto) 0.84 K/uL (0.11-0.59); Monocytes % (auto) 7.1 %; Neutrophils # (auto) 9.16 K/uL (1.4-6.5); Neutrophils % (auto) 77.7 %
[2018-10-07 03:32] LABS: BUN Creatinine Ratio 30.7 (10-20); Blood Urea Nitrogen 107 mg/dl (7-18); Calcium 8.2 mg/dl (8.5-10.1); Carbon Dioxide 22 mmol/L (21-32); Chloride 100 mmol/L (98-107); Est GFR (African American) 19.1; Est GFR (Non-African American) 16.5; Glucose 94 mg/dl (70-99); Sodium 133 mmol/L (136-145); Troponin I < 0.015 ng/ml (0-0.045)
[2018-10-07] MEDS ORDERED: SODIUM CHLORIDE 0.9% 1000ML 1,000 ML IV ONE (03:37)
[2018-10-07] MEDS ORDERED: SODIUM BICARB 8.4% INJ 50 MEQ/50 ML SYR IV STA (04:02)
[2018-10-07] MEDS ORDERED: INSULIN HUMAN REGULAR IV STA (04:02)
[2018-10-07] MEDS ORDERED: DEXTROSE 50% 50 ML SYRINGE IV STA ×2 (04:02→17:32)
[2018-10-07] MEDS ORDERED: INSULIN HUMAN REGULAR PER UNIT 10 UNITS in SYRINGE 9.9 ML IV STA ×2 (04:07→17:30)
[2018-10-07] MEDS ORDERED: NovoLIN-R INSULIN PER UNIT CHARGE ONE (04:25)
[2018-10-07 04:33] LABS: iSTAT Creatinine 3.4 mg/dl (0.6-1.3); iSTAT Hemoglobin 7.8 g/dl (14.0-18.0); iSTAT Ionized Calcium 1.07 mmol/l (1.12-1.32); iSTAT Potassium 6.4 mEq/L (3.3-5.0)
--- NOTE | 2018-10-07 05:11 | History & Physical Report ---
Date of Service October 07, 2018 Assessment & Plan (1) Acute kidney injury: BUN 107, creatinine 3.49. Baseline creatinine = 0.76 09/30/18. Suspect ZARA secondary to volume depletion. Consider vancomycin nephrotoxicity (although vanco levels were monitored closely). Check renal US to rule out obstruction. Continue IV fluids. Consult Nephrology. (2) Acute hyperkalemia: Serum K 6.0 with ZARA. Received IV fluids, bicarb, and dextrose / insulin in ED. Follow. (3) Anemia: Hgb 8.0, MCV 80. Recent baseline Hgb = 6.8 - 8.4. Labs 07/17/18: Fe 25, ferritin 277, folate 13, B12 531. Anemia probably multifactorial, contributing factors including malnutrition and infections. Continue Fe. Monitor H/H. Check fecal OB. Consider parenteral Fe. Transfuse PRN. (4) Abnormal chest xray: Chest x-ray shows possible RUL infiltrate. No fever or cough. Follow pulmonary status. (5) Coronary artery disease: Denies chest pain. No acute EKG changes. Continue metoprolol. History of dyslipidemia, but statin therapy probably not indicated at this time due to severe protein-calorie malnutrition. (6) Chronic systolic CHF (congestive heart failure): History of chronic left ventricular systolic heart failure due to ischemic heart diasease. Appears to be compensated at time of admission. No IRVIN or ARB due to ZARA. Follow status closely while receiving IV fluids. (7) Severe protein-calorie malnutrition: Severe protein-calorie malnutrition. Wt 45.9 kg, BMI 14.1. Recent PEG placement. Continue nutrional support orally and via PEG. Consult Nutrition. (8) GERD (gastroesophageal reflux disease): Continue PPI. (9) Hypothyroidism: Continue levothyroxine. (10) Urethral trauma: Secondary to Childs insertion August 2018. Continue Childs cath for now. Consider Urology consultation / voiding trial once ZARA resolved. (11) Chronic pain: Continue usual analgesics. (12) Decubitus ulcer: Multiple chronic skin ulcers, some dating back 2-3 years. Several stage IV ulcers- sacrum, bilat hips, right buttock, left lateral malleous. None of the ulcers appear to be grossly infected at this time. Consult Wound Care Nursing. Continue local care. Reposition q 2 hours. Specialty bed. Optimize nutritional status. (13) Wound infection: Drainage from PEG site a few days ago grew Pseudomonas. Continue cefepime. (14) Osteomyelitis: [place] [facility] [place]omyelitis right femoral head. Completed course of vancomycin and ertapenem. (15) DVT prophylaxis: History DVT 2018. Status post IVC filter. Anticoagulation management changed recently from warfarin to apixaban. Best to hold apixaban in light of ZARA. Discuss anticoagulation options with Pharmacy. (16) Discharge planning issues: Anticipated return to [facility]. History of Present Illness Primary Care Provider: Sameera [facility] 73 YO male who is a resident at [facility]. History of schizoid personality disorder, coronary artery disease, CHF, DVT, and other problems. The patient is a poor historian. History obtained from records at [facility] and [facility]. Received additional info from nursing staff at [facility]. He has problem with decubitus ulcers, dating back 2-3 years. Apparently the decubiti were due to prolonged immobilization from sitting in a chair. Admitted to [facility] in August of this year with sepsis due to decubitus ulcers. Transferred to [facility] 08/17/18. Imaging consistent with osteomyelitis right femoral head. 6 week course of antibiotic therapy with vancomycin and ertapenem recommended. Transferred to [facility] on 08/23/18. Unable to maintain adequate nutrition by mouth. Patient denies abdominal pain, nausea, vomiting, dysphagia. PEG recommended for supplemental enteral nutrition and was placed about 2 weeks ago. Started receiving supplements via PEG (Peravite); continued pureed diet + supplements orally. Completed course of vancomycin and ertapenem last week. No problems with PEG feedings, but developed drainage around the PEG site and cultures grew Pseudomonas. Stared on cefepime about 2 days prior to admission. Referred to ED tete because of altered mental status. Found to have acute kidney injury and referred for admission. Patient unable to provide any additional information. Allergies Allergy/AdvReac Type Severity Reaction Status Date / Time iodine Allergy Unknown Unknown Verified 10/07/18 10:06 onion AdvReac Intermediate vomitting Verified 10/07/18 10:06 Home Medications Home Medications Medication Instructions Recorded Confirmed Type Lactobacillus acidophilus 1 cap PO BID 09/16/18 09/25/18 History [Probiotic] apixaban [Eliquis] 5 mg PO BID 09/16/18 09/25/18 History baclofen 5 mg PO TID 09/16/18 09/25/18 History bisacodyl 10 mg MN DAILY PRN 09/16/18 09/25/18 History cholestyramine-aspartame 4 g PO BID 09/16/18 09/25/18 History [Cholestyramine Light] divalproex 4 cap PO BID 09/16/18 09/25/18 History docusate sodium 10 ml PO DAILY 09/16/18 09/25/18 History ergocalciferol (vitamin D2) 50,000 unit PO 2XWK 09/16/18 09/20/18 History ertapenem [Invanz] 1 g IV DAILY 09/16/18 09/25/18 History fentanyl 1 patch TRANSDERMAL Q72H 09/16/18 09/25/18 History ferrous sulfate 325 mg PO DAILY 09/16/18 09/25/18 History folic acid 1 mg PO DAILY 09/16/18 09/25/18 History levothyroxine 1 tab PO DAILY 09/16/18 09/25/18 History magnesium hydroxide [Milk of 30 ml PO DAILY PRN 09/16/18 09/20/18 History Magnesia] melatonin 3 mg PO HS 09/16/18 09/20/18 History metoprolol tartrate 25 mg PO BID 09/16/18 09/25/18 History oxycodone 5 mg PO Q6H PRN 09/16/18 09/25/18 History pantoprazole 40 mg PO DAILY 09/16/18 09/25/18 History sodium phosphates [Enema] 197 ml MN DAILY PRN 09/16/18 09/20/18 History thiamine HCl (vitamin B1) 100 mg PO DAILY 09/16/18 09/20/18 History tramadol 50 mg PO Q6H PRN 09/16/18 09/25/18 History vitamin B complex 1 tab PO DAILY 09/16/18 09/25/18 History vancomycin in 0.9 % sodium chl IV BID 09/25/18 History Saccharomyces boulardii [Probiotic 250 mg PO BID 10/07/18 10/07/18 History (S.boulardii)] acetaminophen 650 mg PO Q6H PRN MDD 3gm/24hr 10/07/18 10/07/18 History acetaminophen [Tylenol] 650 mg PO Q6H PRN MDD 3g/24hr 10/07/18 10/07/18 History apixaban [Eliquis] 5 mg PO BID 10/07/18 10/07/18 History baclofen 5 mg PO TID 10/07/18 10/07/18 History cefepime 1 g IV Q8 10/07/18 10/07/18 History cholestyramine (with sugar) 4 g PO BID 10/07/18 10/07/18 History divalproex 500 mg PO BID 10/07/18 10/07/18 History docusate sodium [Docu] 100 mg PO BID 10/07/18 10/07/18 History fentanyl 1 patch TRANSDERMAL Q72H 10/07/18 10/07/18 History ferrous sulfate 325 mg PO BID 10/07/18 10/07/18 History folic acid 1 mg PO DAILY 10/07/18 10/07/18 History levothyroxine 25 mcg PO DAILY 10/07/18 10/07/18 History melatonin 3 mg PO HS 10/07/18 10/07/18 History metoprolol tartrate 25 mg PO BID 10/07/18 10/07/18 History multivit,stress formula-zinc 1 tab PO DAILY 10/07/18 10/07/18 History [Stress Formula with Zinc] oxycodone 5 mg PO Q6 10/07/18 10/07/18 History pantoprazole 40 mg PO DAILY 10/07/18 10/07/18 History thiamine HCl (vitamin B1) 100 mg PO DAILY 10/07/18 10/07/18 History tramadol 50 mg PO Q6H PRN 10/07/18 10/07/18 History Past Med/Surg History Social History Preferred Language: [place] Communication Ability: Impaired [employer]iter Required: No Beliefs That Will Affect Care: None Current Living Situation: Detention Current Living Situation Comment: [facility] Other Information That Helps Us Care for You: No Feels Safe at Home: Declines to Answer Smoking Status: Former smoker Hx Alcohol Use: No Hx Substance Use: No Review of Systems Unobtainable due to mental health condition and Unobtainable due to cognitive status Physical Exam Vital Signs (Past 24 Hours): Last Vital Signs Temp 37.0 C 10/07/18 01:52 Pulse 78 10/07/18 04:27 Resp 22 10/07/18 04:27 BP 123/68 10/07/18 04:27 Pulse Ox 95 03/04/19 04:27 Constitutional: + ill appearing and + cachectic; no acute distress Eyes: PERRL, conjunctivae normal, anicteric sclerae ENMT: external ear and nose normal, oropharynx normal Nose: + dry nasal mucous membranes Mouth: + dentition abnormality (poor dentition) Neck: trachea midline, no thyromegaly Respiratory: normal respiratory effort, lungs clear to auscultation Cardiovascular: Rate/Rhythm: regular rate Heart Sounds: + murmur (I/ sys murmur LSB); no gallop and no cardiac rub Vessels: no JVD, + posterior tibial pulses abnormal and + dorsalis pedis pulses abnormal Extremities: normal capillary refill (about 2 seconds bilat toes); no calf tenderness and no edema Gastrointestinal (Abdomen): Inspection/Auscultation: normal bowel sounds; + abdomen abnormal to inspection (PEG with minimal surrounding erythema) Percussion/Palpation: abdomen soft; abdomen nontender Musculoskeletal: Head/Neck/Chest: neck supple Extremities: no cyanosis flexion contractures bilat knees and hips Skin: + ulcer stage IV decubitus ulcers sacrum 7 cm, R hip 7 cm, R ischial tuberosity 3 cm, L hip 7 cm, L lateral malleolus 2 cm, L lateral foot 1 cm skin ulcer right mid lateral back measuring 8 cm in greatest dimension several ulcerations bilat legs all of the ulcers had clean bases Neurologic: PERRL, EOMI no facial palsy no dysarthria or aphasia unable to assess lower extremity strength due to contractures Psychiatric: Orientation: alert Genitourinary: Childs cath Lymphatic: no cervical lymphadenopathy Results & Data Laboratory Results Laboratory Results - last 24 hr 10/07/18 10/07/18 10/07/18 02:51 02:51 02:51 WBC 11.78 H RBC 3.13 L Hgb 8.0 L POC Hgb Hct 25.1 L POC Hct MCV 80.2 MCH 25.6 MCHC 31.9 L RDW Std Deviation 52.6 H RDW Coeff of Lucila 17.8 H Plt Count 495 H MPV 9.1 Immature Gran % (Auto) 0.2 Neut % (Auto) 77.7 Lymph % (Auto) 11.9 [place] % (Auto) 7.1 Eos % (Auto) 2.9 Baso % (Auto) 0.2 Immature Gran # (Auto) 0.02 Neut # (Auto) 9.16 H Lymph # (Auto) 1.40 [place] # (Auto) 0.84 H Eos # (Auto) 0.34 Baso # (Auto) 0.02 Echinocytes 1+ POC Sodium Sodium 133 L POC Potassium Potassium 6.0 H POC Chloride Chloride 100 Carbon Dioxide 22 POC Total CO2 Anion Gap 11.0 POC Anion Gap POC BUN BUN 107 H Creatinine 3.49 H POC Creatinine Est Cr Clr Drug Dosing Not Reportable Est GFR ( Amer) 19.1 Est GFR (Non-Af Amer) 16.5 BUN/Creatinine Ratio 30.7 H Glucose 94 POC Glucose (other) Calcium 8.2 L POC Ioniz Calcium Fam Troponin I < 0.015 Urine Color Urine Appearance Urine pH Ur Specific [place] Urine Protein Urine Glucose (UA) Urine Ketones Urine Blood Urine Nitrite Urine Bilirubin Urine Urobilinogen Ur Leukocyte Esterase Urine WBC (Auto) Urine RBC (Auto) U Hyaline Cast (Auto) U Epithel Cells (Auto) Urine Bacteria (Auto) Urine Yeast Nasal Screen MRSA (PCR) Valproic Acid 31 L 10/07/18 10/07/18 10/07/18 04:21 04:40 06:30 WBC RBC Hgb POC Hgb 7.8 L Hct POC Hct 23 L MCV MCH MCHC RDW Std Deviation RDW Coeff of Lucila Plt Count MPV Immature Gran % (Auto) Neut % (Auto) Lymph % (Auto) [place] % (Auto) Eos % (Auto) Baso % (Auto) Immature Gran # (Auto) Neut # (Auto) Lymph # (Auto) [place] # (Auto) Eos # (Auto) Baso # (Auto) Echinocytes POC Sodium 134 L Sodium POC Potassium 6.4 H* Potassium POC Chloride 102 Chloride Carbon Dioxide POC Total CO2 22 L Anion Gap POC Anion Gap 17.0 POC BUN 95 H BUN Creatinine POC Creatinine 3.4 H Est Cr Clr Drug Dosing Est GFR ( Amer) Est GFR (Non-Af Amer) BUN/Creatinine Ratio Glucose POC Glucose (other) 96 Calcium POC Ioniz Calcium Fam 1.07 L Troponin I Urine Color Yellow Urine Appearance Clear Urine pH 6.0 Ur Specific [place] 1.013 Urine Protein Negative Urine Glucose (UA) Negative Urine Ketones Negative Urine Blood 1+ H Urine Nitrite Negative Urine Bilirubin Negative Urine Urobilinogen Negative Ur Leukocyte Esterase 3+ H Urine WBC (Auto) >30 H Urine RBC (Auto) 5-10 H U Hyaline Cast (Auto) 0 U Epithel Cells (Auto) 0-5 Urine Bacteria (Auto) Negative Urine Yeast Budding w/ Hyphae H Nasal Screen MRSA (PCR) Positive A Valproic Acid Diagnostic Findings PORTABLE CHEST X-RAY IMPRESSION: 1. Cardiomegaly without radiographic evidence of congestive failure. 2. Suspect right upper lobe consolidation and a small right pleural effusion. Correlate clinically for evidence of pneumonia/aspiration pneumonitis. Radiographic follow-up to resolution is recommended. Electronically signed by: Prabhjot Sarmiento M.D. 10/07/2018 7:[address] HEAD WITHOUT CONTRAST Findings: The paranasal sinuses and mastoid air cells are clear. The calvarium and skull base are intact. The ventricles and sulci are within normal limits. There is no mass, hematoma, midline shift, or acute infarct. Impression: No acute intracranial abnormality. The above report was generated using voice recognition software. It may contain grammatical, syntax or spelling errors. Electronically signed by: Jamie Nazario M.D. 10/07/2018 6:22 AM ECG Additional Comments: EKG performed at 0253 reviewed and demonstrated NSR at 83 / min, RBBB, left anterior fascicular block, baseline artifact. Code Status & VTE Plan Code Status Code status is full code per POLST as well as ED physician's discussion with brother. VTE Prophylaxis Plan VTE Prophylaxis will be ordered: Yes
[2018-10-07 05:25] LABS: Appearance Urine Clear (Clear); Bacteria Urine Automated Negative (Negative); Bilirubin Urine Negative (Negative); Blood Urine 1+ (Negative); Color Urine Yellow; Epithelial Cell Urine Auto 0-5 /lpf (0-5); Glucose Urine UA Negative (Negative); Ketones Urine Negative (Negative); Leukocyte Esterase Urine 3+ (Negative); Nitrite Urine Negative (Negative); Protein Urine Negative (Negative); Specific Gravity Urine 1.013 (1.000-1.030); Urobilinogen Urine Negative (Negative); WBC Urine Automated >30 /hpf (0-5)
--- NOTE | 2018-10-07 05:29 | Emergency Department Note ---
Entered by Andrea Gould acting as a scribe for Ap Angeles MD ED Provider Note Name: Ap Winters Age: 73 Arrives Via: EMS Informant: EMS CC: Altered mental status HPI: The patient is a 73 year old male who presents to the Emergency Room via EMS from his living facility after EMS was called stating the patient was unresponsive, his eyes rolled back, and apneic. However, when EMS arrived, the patient was responsive but altered. He was immediately put on 4L NRB. HPI is limited secondary to altered mental status. Other than O2 no treatment prior to arrival. Patient gradually improving while here and interacting back to his baseline. ROS: See above HPI for pertinent positives & negatives. Limited secondary to altered mental status. Past Medical History: Sepsis, anxiety, HTN, hypothyroidism, GERD, schizoid, ME, dyslipidemia, PE (?) Past Surgical History: Appendectomy, PEG tube placement, and wound debridement Family History: Family history not contributory Social History: Lives at assisted living facility Home Medications: Chronic blood thinners Allergies No known allergies Physical: Vitals: BP: 151/84, NM: 87, RR: 22, Temp: 98.6F, O2 Sat 90 on RA Exam: GENERAL: Patient is chronically unwell appearing and in no acute distress. EYES: No scleral icterus, unremarkable pupils. ENT: Mucous membranes moist, no nasal congestion. NECK: No masses appreciated, no meningismus, trachea is midline. RESPIRATORY: No dyspnea. Clear to auscultation and equal bilaterally. No wheeze, no rhonchi. CARDIOVASCULAR: Regular rate and rhythm. No murmurs, rubs, gallops appreciated. GASTROINTESTINAL: Abdomen soft, non-tender, no peritonitis. Bowel sounds positive. No masses appreciated. PEG tube in mid abdomen with surrounding cellulitis BACK: No midline tenderness, no CVA tenderness EXTREMITIES: Normal motion all extremities, no cyanosis, no edema. Contractures of all extremities. Wasting of all extremities. PICC line in the left arm. NEUROLOGIC: Alert and oriented, no acute motor or sensory deficits, no focal weakness, cranial nerves grossly intact. SKIN: No rash, no jaundice, no diaphoresis. GCS 15 ED Course: Prior Medical Record, Triage/Nursing Notes, Medications, Allergies reviewed by Me Vital Signs: reviewed and remarkable for Labs: Reviewed and remarkable for hyperkalemia, elevated Cr, anemia stable Interventions: Saline Lock, NSS bolus 1 L NSS, Bicarb 1 amp, Insulin 10U IV, D50 1 amp Imaging: X ray results are stated below per my interpretation: Chest: 1 view: No infiltrate, no effusion, normal cardiac border. Similar to previous [facility] Radiologist interpretation reviewed by me: No acute findings on CT Head EKG: Normal sinus rhythm rate of 83, bifascicular block, no ectopy, no ischemia, similar other than rate change from 08/11/18 Consults: Reassessments/Times: 0140: Past medical records reviewed. The patient was evaluated in room C09, and a complete history and physical examination were performed. 0240: The patient's son is at bedside. The patient is awake and interactive in no distress. He states he does not remember the event. His son also noted that he was recently restarted on antibiotics due to an infection of his PEG tube that was placed 1 week ago. Blood pressure: Normal. No Referral necessary Disposition: Hospitalization Differentials: Toxicological, Infectious, Stroke, SAH, Trauma, Electrolyte Abnormality, Hypoglycemia, Alcohol Intoxication, Drug Intoxication, Cardiac Abnormality, Sepsis, Meningitis/Encephalitis, Trauma, Excited Delirium, Serotonin Syndrome, Psychiatric, amongst other pathologies. Medical Decision Makin yr old male with chronic illness who arrives after syncopal like event at senior living but by time here much improved and brother noting he is at his baseline. He appears dehydrated/malnurished and has extensive wound dressings. CT head negative done due to syncope. CXR without clear findings. There is some erythema around peg site insertion which is likely improving cellulitis that abx he is on are for. He was found to be in acute renal failure with hyperkalemia. This was treated with Bicarb, Insulin, Fluids as no clear cardiac toxicity at this time will avoid Ca. He was comfortable throughout without complaints nor further AMS. Anemia at his baseline. Hospitalist in to evaluate further. No clear indication for emergent ABX as he does not appear septic and is already on them. Unclear cause of syncope though likely it is related to renal failure and possibly hyperK (though no arrythmia here). With him already being anticoagulated I do not feel that CT PE indicated. EKG without Stemi and patient without chest pain. Impression: Acute Renal failure Acute Hyperkalemia Acute Dehydration Syncope Critical Care Time: I have personally spent greater than 30 minutes of critical care time in the direct management of this patient. Acute renal failure with hyperkelamia requiring rapid treatment. This was a life/limb threatening event. This includes time spent evaluating patient, direct bedside care, chart review, placing orders, interpretation of diagnostic studies, discussion with consultants, patient, and family members, as well as other required patient management activities. This 30 minutes is in excess of all separately billable procedures. Ap Angeles MD The scribe's documentation has been prepared under my direction and personally reviewed by me in its entirety. I confirm that the note above accurately reflects all work, treatment, procedures, and medical decision making performed by me. Impression & Plan Acute renal failure, Acute hyperkalemia, Acute dehydration, Syncope Past Med/Surg History Social History Smoking Status: Unknown if ever smoked Results & Data Vital Signs Vital Signs - 24 hr 10/07/18 01:52 10/07/18 02:27 10/07/18 02:28 Temperature 37.0 C Temperature Source Oral Sepsis Recent Fever Within 48 Hours No Sepsis New/Unexplained Change in Mental Status No Sepsis Action Taken by Nursing No Action Required Pulse Rate 84 84 Pulse Rate [Right Finger] 87 Pulse Rate from SpO2 Sensor Respiratory Rate 22 29 H 22 Respiratory Effort / Characteristics Non-Labored Spontaneous Respiratory Depth Normal Respiratory Pattern Regular Blood Pressure 151/84 H Blood Pressure [Right Arm] 151/84 H Blood Pressure Mean 106 Blood Pressure Mean [Right Arm] 106 Pulse Oximetry 90 Oxygen Delivery Method Room Air 10/07/18 04:27 10/07/18 05:10 Temperature Temperature Source Sepsis Recent Fever Within 48 Hours Sepsis New/Unexplained Change in Mental Status Sepsis Action Taken by Nursing Pulse Rate 78 86 Pulse Rate [Right Finger] Pulse Rate from SpO2 Sensor 78 87 Respiratory Rate 22 21 Respiratory Effort / Characteristics Respiratory Depth Respiratory Pattern Blood Pressure 123/68 125/70 Blood Pressure [Right Arm] Blood Pressure Mean 86 88 Blood Pressure Mean [Right Arm] Pulse Oximetry 95 96 Oxygen Delivery Method Laboratory Data Result diagrams: 10/07/18 02:51 10/07/18 02:51 Lab Results 10/07/18 10/07/18 10/07/18 Range/Units 02:51 02:51 02:51 WBC 11.78 H (4.8-10.8) K/uL RBC 3.13 L (4.7-6.1) M/uL Hgb 8.0 L (14.0-18.0) g/dL POC Hgb (14.0-18.0) g/dl Hct 25.1 L (42-52) % POC Hct (42-52) % MCV 80.2 (80-100) fL MCH 25.6 (25-34) pg MCHC 31.9 L (32-36) g/dL RDW Std Deviation 52.6 H (36.4-46.3) fL RDW Coeff of Lucila 17.8 H (11.5-14.5) % Plt Count 495 H (130-400) K/uL MPV 9.1 (7.4-10.4) fL Immature Gran % (Auto) 0.2 % Neut % (Auto) 77.7 % Lymph % (Auto) 11.9 % Chase % (Auto) 7.1 % Eos % (Auto) 2.9 % Baso % (Auto) 0.2 % Immature Gran # (Auto) 0.02 (0.00-0.02) K/uL Neut # (Auto) 9.16 H (1.4-6.5) K/uL Lymph # (Auto) 1.40 (1.2-3.4) K/uL Chase # (Auto) 0.84 H (0.11-0.59) K/uL Eos # (Auto) 0.34 (0-0.5) K/uL Baso # (Auto) 0.02 (0-0.2) K/uL Echinocytes 1+ POC Sodium (135-144) mEq/L Sodium 133 L (136-145) mmol/L POC Potassium (3.3-5.0) mEq/L Potassium 6.0 H (3.5-5.1) mmol/L POC Chloride (101-112) mEq/L Chloride 100 (98-107) mmol/L Carbon Dioxide 22 (21-32) mmol/L POC Total CO2 (24-31) mEq/l Anion Gap 11.0 (3-11) POC Anion Gap (16-25) mmol/L POC BUN (7-18) mg/dl BUN 107 H (7-18) mg/dl Creatinine 3.49 H (0.6-1.4) mg/dl POC Creatinine (0.6-1.3) mg/dl Est Cr Clr Drug Dosing Not Reportable Est GFR ( Amer) 19.1 Est GFR (Non-Af Amer) 16.5 BUN/Creatinine Ratio 30.7 H (10-20) Glucose 94 (70-99) mg/dl POC Glucose (other) (70-99) mg/dl Calcium 8.2 L (8.5-10.1) mg/dl POC Ioniz Calcium Fam (1.12-1.32) mmol/l Troponin I < 0.015 (0-0.045) ng/ml Valproic Acid 31 L (50-100) mcg/ml 10/07/18 Range/Units 04:21 WBC (4.8-10.8) K/uL RBC (4.7-6.1) M/uL Hgb (14.0-18.0) g/dL POC Hgb 7.8 L (14.0-18.0) g/dl Hct (42-52) % POC Hct 23 L (42-52) % MCV (80-100) fL MCH (25-34) pg MCHC (32-36) g/dL RDW Std Deviation (36.4-46.3) fL RDW Coeff of Lucila (11.5-14.5) % Plt Count (130-400) K/uL MPV (7.4-10.4) fL Immature Gran % (Auto) % Neut % (Auto) % Lymph % (Auto) % Chase % (Auto) % Eos % (Auto) % Baso % (Auto) % Immature Gran # (Auto) (0.00-0.02) K/uL Neut # (Auto) (1.4-6.5) K/uL Lymph # (Auto) (1.2-3.4) K/uL Chase # (Auto) (0.11-0.59) K/uL Eos # (Auto) (0-0.5) K/uL Baso # (Auto) (0-0.2) K/uL Echinocytes POC Sodium 134 L (135-144) mEq/L Sodium (136-145) mmol/L POC Potassium 6.4 H* (3.3-5.0) mEq/L Potassium (3.5-5.1) mmol/L POC Chloride 102 (101-112) mEq/L Chloride (98-107) mmol/L Carbon Dioxide (21-32) mmol/L POC Total CO2 22 L (24-31) mEq/l Anion Gap (3-11) POC Anion Gap 17.0 (16-25) mmol/L POC BUN 95 H (7-18) mg/dl BUN (7-18) mg/dl Creatinine (0.6-1.4) mg/dl POC Creatinine 3.4 H (0.6-1.3) mg/dl Est Cr Clr Drug Dosing Est GFR ( Amer) Est GFR (Non-Af Amer) BUN/Creatinine Ratio (10-20) Glucose (70-99) mg/dl POC Glucose (other) 96 (70-99) mg/dl Calcium (8.5-10.1) mg/dl POC Ioniz Calcium Fam 1.07 L (1.12-1.32) mmol/l Troponin I (0-0.045) ng/ml Valproic Acid (50-100) mcg/ml Administered Medications Discontinued Medications Dextrose (Dextrose 50%) 50 ml IV NOW STA Stop: 10/07/18 04:03 Last Admin: 10/07/18 04:29 Dose: 50 ml Documented by: [id number] Sodium Chloride (Nss 1000ml) 1,000 mls @ 999 mls/hr IV .Q1H1M ONE Stop: 10/07/18 04:37 Last Admin: 10/07/18 03:50 Dose: 999 mls/hr Documented by: [id number] Insulin Human Regular 10 units (/ Syringe) 10 mls @ 30 mls/min IV NOW STA Stop: 10/07/18 04:08 Last Admin: 10/07/18 04:28 Dose: 30 mls/min Documented by: [id number] Cosigned by: [id number] Insulin Human Regular (Novolin R U-100 Per Unit) Confirm Administered Dose 1 units .ROUTE .STK-MED ONE Stop: 10/07/18 04:26 Last Admin: 10/07/18 04:31 Dose: Not Given Documented by: [id number] Sodium Bicarbonate (Sodium Bicarbonate 8.4%) 50 meq IV NOW STA Stop: 10/07/18 04:03 Last Admin: 10/07/18 04:28 Dose: 50 meq Documented by: [id number] Discharge Plan Visit Data Chief Complaint: Shortness of Breath/Dyspnea ED Provider: Ap Angeles Discharge Problem: Acute renal failure, Acute hyperkalemia, Acute dehydration, Syncope Forms Stand Alone Forms: My [facility] Prescriptions Prescriptions: No Action acetaminophen 325 mg Tablet 650 mg PO Q6H MDD 3gm/24hr PRN (Reason: temp>101) RF: 0 acetaminophen [Tylenol] 325 mg Tablet 650 mg PO Q6H MDD 3g/24hr PRN (Reason: mild pain 1-3) RF: 0 baclofen 10 mg Tablet 5 mg PO TID RF: 0 divalproex 125 mg Capsule, Delayed Rel Sprinkle 500 mg PO BID RF: 0 thiamine HCl (vitamin B1) 100 mg Tablet 100 mg PO DAILY RF: 0 tramadol 50 mg Tablet 50 mg PO Q6H PRN (Reason: mod pain 4-10 on 1-10 scale) RF: 0 pantoprazole 40 mg Tablet,Delayed Release (Dr/Ec) 40 mg PO DAILY RF: 0 Probiotic (S.boulardii) 250 mg Capsule 250 mg PO BID RF: 0 melatonin 3 mg Tablet 3 mg PO HS RF: 0 levothyroxine 25 mcg Tablet 25 mcg PO DAILY RF: 0 ferrous sulfate 325 mg (65 mg iron) Tablet 325 mg PO BID RF: 0 folic acid 1 mg Tablet 1 mg PO DAILY RF: 0 fentanyl 25 mcg/hr Patch 72 Hour 1 patch TRANSDERMAL Q72H RF: 0 oxycodone 5 mg Tablet 5 mg PO Q6 RF: 0 metoprolol tartrate 25 mg Tablet 25 mg PO BID RF: 0 Stress Formula with Zinc Tablet 1 tab PO DAILY RF: 0 Eliquis 5 mg Tablet 5 mg PO BID RF: 0 docusate sodium [Docu] 50 mg/5 mL Liquid 100 mg PO BID RF: 0 cefepime 1 gram Recon Soln 1 g IV Q8 RF: 0 cholestyramine (with sugar) 4 gram Powder 4 g PO BID RF: 0 Discharge Problem: Acute renal failure Qualifiers: Acute renal failure type: unspecified Qualified Code(s): N17.9 - Acute kidney failure, unspecified Syncope Qualifiers: Syncope type: unspecified Qualified Code(s): R55 - Syncope and collapse The scribe's documentation has been prepared under my direction and personally reviewed by me in its entirety. I confirm that the note above accurately reflects all work, treatment, procedures, and medical decision making performed by me.
[2018-10-07] MEDS ORDERED: TRAMADOL HCL 50 MG TABLET PO PRN (05:31)
[2018-10-07] MEDS ORDERED: ACETAMINOPHEN 325 MG TAB PO PRN ×2 (05:31)
[2018-10-07] MEDS ORDERED: CEFEPIME 1 GM IV SCH (06:00)
[2018-10-07 06:15] LABS: Cast Urine Automated 0 /lpf (0-5)
[2018-10-07] MEDS ORDERED: PATIENT'S HEIGHT AND/OR WEIGHT NEEDED SCH (06:15)
--- NOTE | 2018-10-07 06:23 | CT Scan Report ---
CT head/brain wo con CT DOSE: 614.27 mGy.cm HISTORY: Episode AMS, resolved TECHNIQUE: Multiaxial CT images of the head were performed without the use of intravenous contrast. A dose lowering technique was utilized adhering to the principles of ALARA. Comparison: None. Findings: The paranasal sinuses and mastoid air cells are clear. The calvarium and skull base are int act. The ventricles and sulci are within normal limits. There is no mass, hematoma, midline shift, or acute infarct. Impression: No acute intracranial abnormality. The above report was generated using voice recognition software. It may contain grammatical, syntax or spelling errors. Electronically signed by: Jamie Nazario M.D. 10/07/2018 6:22 AM
[2018-10-07] MEDS ORDERED: CEFEPIME CONSULT ACTIVE PRN (06:41)
--- NOTE | 2018-10-07 07:07 | XRay Report ---
SINGLE VIEW CHEST CLINICAL HISTORY: Change in mental status. FINDINGS: An AP, portable, semierect chest radiograph is obtained. No prior studies are available for comparison at the time of dictation. The examination is degraded by portable technique and patient r otation. A left-sided PICC line is in place. The tip of the catheter projects over the SVC. The hear t is mildly enlarged and there is atherosclerotic calcification of the thoracic aorta. The pulmonary vasculature is noncongested. Airspace consolidation is suggested in the right upper lobe, with a trac e right pleural effusion identified. No pneumothorax is seen. The skeletal structures are osteopenic. The bony thorax is grossly intact. IMPRESSION: 1. Cardiomegaly without radiographic evidence of congestive failure. 2. Suspect right upper lobe consolidation and a small right pleural effusion. Correlate clinically fo r evidence of pneumonia/aspiration pneumonitis. Radiographic follow-up to resolution is recommended. Electronically signed by: Prabhjot Sarmiento M.D. 10/07/2018 7:06 AM
[2018-10-07] MEDS: SODIUM CHLORIDE 0.9% 1000ML 1,000 ML IV SCH ×2 (07:15→16:06)
[2018-10-07] MEDS: CEFEPIME 500 MG in SYRINGE 0 ML IV SCH (08:36)
[2018-10-07] MEDS: OXYCODONE HCL IR 5 MG TAB (IMMEDIATE RELEASE) PO SCH ×4 (08:39→23:25)
[2018-10-07] MEDS: LEVOTHYROXINE SODIUM 25 MCG TABLET PO SCH (08:39)
[2018-10-07] MEDS: FOLIC ACID 1 MG TAB PO SCH (08:39)
[2018-10-07] MEDS: BACLOFEN 10 MG TAB PO SCH ×3 (08:40→20:28)
[2018-10-07] MEDS: METOPROLOL TARTRATE 25 MG TAB PO SCH ×2 (08:40→20:29)
[2018-10-07] MEDS: THIAMINE HCL 100 MG TAB PO SCH (08:40)
[2018-10-07] MEDS: DIVALPROEX SODIUM SPRINKLE 125 MG CAP PO SCH ×2 (08:41→20:29)
[2018-10-07] MEDS: SACCHAROMYCES BOULARDII 250 MG CAP PO SCH ×2 (08:41→20:28)
[2018-10-07] MEDS ORDERED: PANTOprazole 40 MG TAB PO SCH (09:00)
[2018-10-07] MEDS ORDERED: CEROVITE ADV FORMULA TAB PO SCH (09:00)
[2018-10-07] MEDS: fentaNYL 25 MCG/HR TDSY TD SCH ×2 (09:19→09:35)
[2018-10-07] MEDS ORDERED: DOXYCYCLINE HYCLATE 100 MG CAP PO SCH (10:00)
[2018-10-07] MEDS: FERROUS SULFATE 325 MG TAB PO SCH ×2 (10:26→17:30)
[2018-10-07] MEDS: DOCUSATE SODIUM 100 MG CAP PO SCH ×2 (10:26→20:27)
[2018-10-07] MEDS ORDERED: Heparin IV Low Dose *NO* Bolus IV ONE (11:00)
[2018-10-07] MEDS: CHOLESTYRAMINE LIGHT 4 GM PKT PO SCH ×2 (11:02→17:30)
[2018-10-07] MEDS: DOXYCYCLINE HYCLATE 100 MG CAP PO SCH ×2 (11:04→20:30)
[2018-10-07 11:08] LABS: Calcium 7.9 mg/dl (8.5-10.1); Creatinine Clr Calc Pharmacy 12.8 ml/min; Est GFR (African American) 19.9; Est GFR (Non-African American) 17.2; Potassium 5.8 mmol/L (3.5-5.1)
[2018-10-07 12:05] LABS: INR 1.2 (0.9-1.1); Partial Thromboplastin Ratio 1.4; Partial Thromboplastin Time 38.2 Seconds (21.0-31.0); Prothrombin Time 12.1 Seconds (9.0-12.0)
[2018-10-07] MEDS: HEPARIN LOW DOSE DEXTROSE 25,000 UNITS/500 ML IV SCH (12:29)
[2018-10-07] MEDS ORDERED: HEPARIN IV BOLUS 3,000 UNITS in SYRINGE 0 ML IV ONE ×2 (12:45→19:00)
[2018-10-07] MEDS: CHECK FENTANYL PATCH PLACEMENT SCH ×2 (15:25→23:24)
--- NOTE | 2018-10-07 15:30 | Nephrology Consultation ---
Date of Consultation October 07, 2018 Assessment & Plan (1) Acute kidney injury: Acute kidney injury likely due to prerenal azotemia given high BUN to creatinine ratio. Patient with a creatinine of 0.7 about a week ago. He has been on vancomycin and ertapenem but vancomycin levels were therapeutic making Vanco toxicity less likely. He could have AIN but patient completed antibiotics a week ago making AIN less likely. Recommend volume resuscitation with sodium bicarbonate 100 mEq in D5 water at 125 mL/h. Monitor input output and renally dose medications for current GFR. (2) Acute hyperkalemia: Due to acute kidney injury and metabolic acidosis. Patient should be on a low potassium diet. Anticipate improvement with the volume resuscitation (3) Metabolic acidosis: Due to acute kidney injury. We will give sodium bicarbonate infusion as above. Monitor potassium twice daily. History of Present Illness Reason for Consultation: Acute kidney injury Requesting Physician: Hema Padron MD Attending Physician: Hema Padron MD History of Present Illness This is a 74-year-old male resident of [facility] with a history of hypothyroidism, CHF, coronary artery disease, DVT and ostium mellitus of the right femur status post recent course of vancomycin and ertapenem who was admitted with acute kidney injury with a creatinine of 3.38 from a normal baseline of 0.7 on 09/30/2018. Patient also had hyperkalemia of 6.4 which is improved to 5.8 this morning. His blood pressure is low 90s over 50. Urine output is minimal about 425. He has a chronic Childs catheter. Patient is not a good historian but opens eyes to voice. History was obtained by review of the medical record. Allergies Allergy/AdvReac Type Severity Reaction Status Date / Time iodine Allergy Unknown Unknown Verified 10/07/18 10:06 onion AdvReac Intermediate vomitting Verified 10/07/18 10:06 Home Medications Home Medications Medication Instructions Recorded Confirmed Type Lactobacillus acidophilus 1 cap PO BID 09/16/18 09/25/18 History [Probiotic] apixaban [Eliquis] 5 mg PO BID 09/16/18 09/25/18 History baclofen 5 mg PO TID 09/16/18 09/25/18 History bisacodyl 10 mg TX DAILY PRN 09/16/18 09/25/18 History cholestyramine-aspartame 4 g PO BID 09/16/18 09/25/18 History [Cholestyramine Light] divalproex 4 cap PO BID 09/16/18 09/25/18 History docusate sodium 10 ml PO DAILY 09/16/18 09/25/18 History ergocalciferol (vitamin D2) 50,000 unit PO 2XWK 09/16/18 09/20/18 History ertapenem [Invanz] 1 g IV DAILY 09/16/18 09/25/18 History fentanyl 1 patch TRANSDERMAL Q72H 09/16/18 09/25/18 History ferrous sulfate 325 mg PO DAILY 09/16/18 09/25/18 History folic acid 1 mg PO DAILY 09/16/18 09/25/18 History levothyroxine 1 tab PO DAILY 09/16/18 09/25/18 History magnesium hydroxide [Milk of 30 ml PO DAILY PRN 09/16/18 09/20/18 History Magnesia] melatonin 3 mg PO HS 09/16/18 09/20/18 History metoprolol tartrate 25 mg PO BID 09/16/18 09/25/18 History oxycodone 5 mg PO Q6H PRN 09/16/18 09/25/18 History pantoprazole 40 mg PO DAILY 09/16/18 09/25/18 History sodium phosphates [Enema] 197 ml TX DAILY PRN 09/16/18 09/20/18 History thiamine HCl (vitamin B1) 100 mg PO DAILY 09/16/18 09/20/18 History tramadol 50 mg PO Q6H PRN 09/16/18 09/25/18 History vitamin B complex 1 tab PO DAILY 09/16/18 09/25/18 History vancomycin in 0.9 % sodium chl IV BID 09/25/18 History Saccharomyces boulardii [Probiotic 250 mg PO BID 10/07/18 10/07/18 History (S.boulardii)] acetaminophen 650 mg PO Q6H PRN MDD 3gm/24hr 10/07/18 10/07/18 History acetaminophen [Tylenol] 650 mg PO Q6H PRN MDD 3g/24hr 10/07/18 10/07/18 History apixaban [Eliquis] 5 mg PO BID 10/07/18 10/07/18 History baclofen 5 mg PO TID 10/07/18 10/07/18 History cefepime 1 g IV Q8 10/07/18 10/07/18 History cholestyramine (with sugar) 4 g PO BID 10/07/18 10/07/18 History divalproex 500 mg PO BID 10/07/18 10/07/18 History docusate sodium [Docu] 100 mg PO BID 10/07/18 10/07/18 History fentanyl 1 patch TRANSDERMAL Q72H 10/07/18 10/07/18 History ferrous sulfate 325 mg PO BID 10/07/18 10/07/18 History folic acid 1 mg PO DAILY 10/07/18 10/07/18 History levothyroxine 25 mcg PO DAILY 10/07/18 10/07/18 History melatonin 3 mg PO HS 10/07/18 10/07/18 History metoprolol tartrate 25 mg PO BID 10/07/18 10/07/18 History multivit,stress formula-zinc 1 tab PO DAILY 10/07/18 10/07/18 History [Stress Formula with Zinc] oxycodone 5 mg PO Q6 10/07/18 10/07/18 History pantoprazole 40 mg PO DAILY 10/07/18 10/07/18 History thiamine HCl (vitamin B1) 100 mg PO DAILY 10/07/18 10/07/18 History tramadol 50 mg PO Q6H PRN 10/07/18 10/07/18 History Patient History Social History Communication Ability: Impaired Beliefs That Will Affect Care: None Current Living Situation: Detention Current Living Situation Comment: [facility] Other Information That Helps Us Care for You: No Feels Safe at Home: Declines to Answer Smoking Status: Former smoker Hx Alcohol Use: No Hx Substance Use: No Review of Systems Unable to obtain due to mental status. Physical Exam Vital Signs (Past 24 Hours): Last Vital Signs Temp 36.4 C L 10/07/18 11:28 Pulse 68 10/07/18 11:28 Resp 16 10/07/18 11:28 BP 90/52 L 10/07/18 11:28 Pulse Ox 96 10/07/18 11:28 Physical Exam: General exam: Appears comfortable, no acute distress HEENT: Pupils are equal and reactive to light Neck: No JVD, neck is supple trachea is midline Respiratory system: Clear breath sounds bilaterally. Gastrointestinal: Abdomen is soft, non distended, non tender, bowel sounds are present CVS: Regular rate and rhythm. No murmurs, rubs or gallops Musculoskeletal: No joint or muscle tenderness Extremities: Non tender, no edema, peripheral pulses are present Neuro: Opens eyes to voice. Has flexion contractures in the legs and upper extremities Skin: Sacral decubitus ulcers Results & Data Laboratory Results Hemoglobin 8, potassium 5.8, bicarb 21, creatinine 3.3 and BUN of 105.
[2018-10-07] MEDS: SODIUM BICARBONATE 8.4% 100 MEQ in DEXTROSE 5% 1,000 ML IV SCH (15:57)
--- NOTE | 2018-10-07 16:01 | Ultrasound Report ---
ULTRASOUND KIDNEYS AND BLADDER CLINICAL HISTORY: Acute renal insufficiency. COMPARISON STUDY: Abdominal CT dated 08/12/2018. TECHNIQUE: Real-time, grayscale, and color flow sonography of the kidneys and bladder is performed. I mages are reviewed in the transverse and longitudinal planes. The examination is severely compromised by portable technique and lack of patient cooperation. FINDINGS: Kidneys: The kidneys demonstrate cortical atrophy. The right kidney measures 9.9 cm and the left kidn ey measures 10.2 cm. There is mild bilateral hydronephrosis. No shadowing renal calculi are identifie d. A 1.5 cm cyst is noted on the left. There is no sonographic evidence of contour deforming renal ma ss lesion. No perinephric fluid is identified. Bladder: The bladder is partially decompressed around a Childs catheter. The bladder wall is thickened and trabeculated indicating chronic outlet obstruction. Ureteral jets were not seen. A large volume of stool is noted in the rectum. IMPRESSION: 1. The kidneys demonstrate cortical atrophy and there is mild bilateral hydronephrosis. 2. The bladder is partially decompressed around a Childs catheter. 3. The bladder wall is thickened and trabeculated indicating chronic outlet obstruction. 4. A large volume of stool is noted in the rectum. Electronically signed by: Prabhjot Sarmiento M.D. 10/07/2018 4:00 PM
[2018-10-07] MEDS ORDERED: POLYETHYLENE (MIRALAX) 17 GM PACK PO PRN (16:17)
--- NOTE | 2018-10-07 16:38 | Hospitalist Progress Note ---
Date of Service October 07, 2018 Assessment & Plan (1) Acute renal failure: Acute kidney injury: Likely Prerenal Metabolic Acidosis, Hyperkalemia: secondary to above chronic outlet obstruction: Mild B/L hydronephrosis on renal USD Vancomycin toxicity less likely Baseline Cr: 0.7 Continue IV fluids as per Nephrology Appreciate Nephrology Input Avoid Nephrotoxic agents as able Consider Urology consult if needed Monitor renal function, electrolytes Metabolic Encephalopathy: H/O Schizoid Personality disorder Could be multifactorial--due to infection, uremia CT head:No acute intracranial abnormality. No agitation monitor Anemia: Hb at baseline Continue Iron supplements Monitor Hb fecal Occult: negative Transfuse PRBCs PRN. Possible Pneumonia: CXR:Suspect right upper lobe consolidation and a small right pleural effusion. No fever or cough. Continue current Abx Constipation: Continue stool softners CAD: Continue metoprolol severe protein-calorie malnutrition. 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 H/O Urethral trauma: Mild b/l Hydronephrosis on reanl USD Childs placeement in Aug 2018. Continue Childs cath Consider Urology consult Chronic pain: Continue home meds Decubitus ulcer: Multiple chronic skin ulcers: Stage IV Continue wound Care PEG tube site Infection: Wound Culture: grew Pseudomonas. Continue cefepime H/O Osteomyelitis: Recent imaging at [facility] consistent with osteomyelitis right femoral head. Completed course of vancomycin and ertapenem. H/O DVT in 2018. S/P IVC filter. Was on Apixaban prior to admission Hold apixaban due to ZARA IV heparin for now DVT Px: On Heparin ggt Disposition: Plan to discharge to [facility] when medically stable Subjective Patient is seen and examined at bedside Patient is very drowsy this morning and could not provide any history No distress on exam No family at bedside He was oriented to person as per Staff later today Physical Exam Vital Signs (Past 24 Hours): Last Vital Signs Temp 36.2 C L 10/07/18 15:31 Pulse 58 L 10/07/18 15:31 Resp 18 10/07/18 15:31 BP 97/46 L 10/07/18 15:31 Pulse Ox 94 10/07/18 15:31 Physical Exam: Physical Exam: Vitals signs as noted above General Appearance:Chronic ill appearing, +Cachectic, no apparent distress Head: normocephalic, Atraumatic, poor dentition Eyes: normal inspection, EOMI Neck: supple, Trachea midline Respiratory/Chest: Normal breath sounds, CTA Cardiovascular: S1, S2, + murmur Abdomen/GI:Soft, Non tender, +PEG, Bowel sounds present Extremities/Musculoskelatal:normal inspection, + B/L LE ulcers Neurologic/Psych:Moves all extremities Skin: normal color, warm, + sacral decubitus ulcer, Multiple ulcerations Results & Data Laboratory Results Short CBC 10/07/18 Range/Units 02:51 WBC 11.78 H (4.8-10.8) K/uL Hgb 8.0 L (14.0-18.0) g/dL Hct 25.1 L (42-52) % Plt Count 495 H (130-400) K/uL BMP 10/07/18 10/07/18 02:51 10:28 Sodium 133 L 137 Potassium 6.0 H 5.8 H Chloride 100 105 Carbon Dioxide 22 21 BUN 107 H 105 H Creatinine 3.49 H 3.38 H Glucose 94 87 Calcium 8.2 L 7.9 L Cardiac Enzymes 10/07/18 Range/Units 02:51 Troponin I < 0.015 (0-0.045) ng/ml Urine 10/07/18 Range/Units 04:40 Urine Color Yellow Urine Appearance Clear (Clear) Urine pH 6.0 (4.5-7.5) Ur Specific [place] 1.013 (1.000-1.030) Urine Protein Negative (Negative) Urine Glucose (UA) Negative (Negative) (1) Acute renal failure Acute renal failure type: unspecified Qualified Code(s): N17.9 - Acute kidney failure, unspecified
[2018-10-07 16:49] LABS: BUN Creatinine Ratio 29.3 (10-20); Calcium 7.9 mg/dl (8.5-10.1); Creatinine Clr Calc Pharmacy 12.2 ml/min; Est GFR (African American) 18.8; Est GFR (Non-African American) 16.2; Potassium 6.3 mmol/L (3.5-5.1)
[2018-10-07] MEDS ORDERED: CALCIUM GLUCONATE 10% 1,000 MG in SODIUM CHLORIDE 0.9% 50 ML IV STA (17:27)
[2018-10-07 18:39] LABS: Partial Thromboplastin Ratio 1.4; Partial Thromboplastin Time 38.4 Seconds (21.0-31.0)
[2018-10-07] MEDS: PEPTAMEN 1.5 CAL 1,000 ML BAG PEG SCH (20:17)
[2018-10-07 20:57] LABS: BUN Creatinine Ratio 30.9 (10-20); Calcium 7.8 mg/dl (8.5-10.1); Creatinine Clr Calc Pharmacy 13.5 ml/min; Est GFR (African American) 21.1; Est GFR (Non-African American) 18.2; Potassium 5.1 mmol/L (3.5-5.1)
[2018-10-08] MEDS: SODIUM BICARBONATE 8.4% 100 MEQ in DEXTROSE 5% 1,000 ML IV SCH (00:44)
[2018-10-08 01:28] LABS: Partial Thromboplastin Ratio 1.3; Partial Thromboplastin Time 36.2 Seconds (21.0-31.0)
[2018-10-08] MEDS ORDERED: HEPARIN IV BOLUS 3,000 UNITS in SYRINGE 0 ML IV ONE ×3 (02:30→17:42)
[2018-10-08] MEDS: OXYCODONE HCL IR 5 MG TAB (IMMEDIATE RELEASE) PO SCH ×3 (05:12→18:55)
[2018-10-08] MEDS: LEVOTHYROXINE SODIUM 25 MCG TABLET PO SCH (05:12)
[2018-10-08] MEDS ORDERED: FERROUS SULFATE 325 MG TAB PO SCH (07:00)
[2018-10-08] MEDS ORDERED: FERROUS SULFATE ELIX 220MG/5ML PO SCH (08:15)
[2018-10-08] MEDS: BACLOFEN 10 MG TAB PO SCH ×3 (08:40→20:38)
[2018-10-08] MEDS: FOLIC ACID 1 MG TAB PO SCH (08:41)
[2018-10-08] MEDS: THIAMINE HCL 100 MG TAB PO SCH (08:41)
[2018-10-08] MEDS: DIVALPROEX SODIUM SPRINKLE 125 MG CAP PO SCH ×2 (08:41→20:39)
[2018-10-08] MEDS: SACCHAROMYCES BOULARDII 250 MG CAP PO SCH ×2 (08:41→20:39)
[2018-10-08] MEDS: CEROVITE ADV FORMULA TAB PO SCH (08:42)
[2018-10-08] MEDS: CEFEPIME 500 MG in SYRINGE 0 ML IV SCH (08:42)
[2018-10-08] MEDS: CHECK FENTANYL PATCH PLACEMENT SCH ×2 (08:43→17:50)
[2018-10-08 09:09] LABS: Hematocrit (blood only) 21.9 % (42-52); Hemoglobin 7.1 g/dL (14.0-18.0); Mean Corpuscular Hgb Conc 32.4 g/dL (32-36); Mean Corpuscular Volume 80.5 fL (80-100); Mean Platelet Volume 9.8 fL (7.4-10.4); Platelet Count 447 K/uL (130-400); RDW Coefficient of Variation 17.8 % (11.5-14.5); RDW Standard Deviation 52.9 fL (36.4-46.3); Red Blood Count 2.72 M/uL (4.7-6.1); White Blood Count 11.75 K/uL (4.8-10.8)
[2018-10-08] MEDS: METOPROLOL TARTRATE 25 MG TAB PO SCH ×2 (09:12→20:39)
[2018-10-08] MEDS: FERROUS SULFATE 325 MG/7.4 ML UDP PO SCH ×2 (09:12→18:52)
[2018-10-08] MEDS: PANTOprazole 40 MG in SYRINGE 0 ML IV SCH (09:13)
[2018-10-08 09:19] LABS: Partial Thromboplastin Ratio 1.2; Partial Thromboplastin Time 33.5 Seconds (21.0-31.0)
[2018-10-08 09:39] LABS: BUN Creatinine Ratio 30.9 (10-20); Calcium 8.1 mg/dl (8.5-10.1); Creatinine Clr Calc Pharmacy 15.5 ml/min; Est GFR (African American) 25.1; Est GFR (Non-African American) 21.7; Potassium 4.3 mmol/L (3.5-5.1)
[2018-10-08] MEDS ORDERED: SODIUM CHLORIDE 0.9% 250 ML IV PRN ×2 (10:09→17:39)
[2018-10-08] MEDS: DOCUSATE SODIUM 100 MG CAP PO SCH ×2 (10:21→20:38)
[2018-10-08] MEDS: CHOLESTYRAMINE LIGHT 4 GM PKT PO SCH ×2 (10:30→18:55)
[2018-10-08] MEDS: DOXYCYCLINE HYCLATE 100 MG in DEXTROSE 5% 100 ML IV SCH ×2 (10:30→20:38)
[2018-10-08] MEDS ORDERED: PANTOprazole 40 MG in SYRINGE 0 ML IV SCH (11:00)
--- NOTE | 2018-10-08 15:55 | Hospitalist Progress Note ---
Date of Service October 08, 2018 Assessment & Plan (1) Acute renal failure: Acute kidney injury: Likely Prerenal Metabolic Acidosis, Hyperkalemia: secondary to above chronic outlet obstruction: Mild B/L hydronephrosis on renal USD Vancomycin toxicity less likely Baseline Cr: 0.7 metabolic acidosis resolved Cr:3.49>>>2.79 Received IV fluids Appreciate Nephrology Input Avoid Nephrotoxic agents as able Consider Urology consult if needed Monitor renal function, electrolytes Metabolic Encephalopathy: H/O Schizoid Personality disorder encephalopathy could be multifactorial--due to infection, uremia CT head:No acute intracranial abnormality. No agitation monitor Anemia: Hb dropped to 7.1::Likely dilutional due to IV fluids Continue Iron supplements Monitor Hb fecal Occult: negative Transfuse PRBCs PRN. No obvious bleeding issues Possible Pneumonia: CXR:Suspect right upper lobe consolidation and a small right pleural effusion. No fever or cough. Continue current Abx Constipation: Continue stool softners CAD: Continue metoprolol severe protein-calorie malnutrition. 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 H/O Urethral trauma: Mild b/l Hydronephrosis on reanl USD Childs placeement in Aug 2018. Continue Childs cath Consider Urology consult Chronic pain: Continue home meds Decubitus ulcer: Multiple chronic skin ulcers: Stage IV Continue wound Care PEG tube site Infection: Wound Culture: grew Pseudomonas. Continue cefepime H/O Osteomyelitis: Recent imaging at [facility] consistent with osteomyelitis right femoral head. Completed course of vancomycin and ertapenem. H/O DVT in 2017. S/P IVC filter. Was on Apixaban prior to admission Hold apixaban due to ZARA IV heparin for now DVT Px: On Heparin ggt Disposition: Plan to discharge to [facility] when medically stable Subjective Patient is seen and examined at bedside Alert, awake and has mild distress while getting wound care this morning Patient could not provide any history No family at bedside Renal function slightly improved Hb dropped to 7.1--likely dilutional due to fluids No obvious bleeding issues Physical Exam Vital Signs (Past 24 Hours): Last Vital Signs Temp 36.9 C 10/08/18 11:08 Pulse 69 10/08/18 11:08 Resp 18 10/08/18 11:08 BP 147/74 H 03/05/19 11:08 Pulse Ox 95 10/08/18 11:08 Physical Exam: Physical Exam: Vitals signs as noted above General Appearance:Chronic ill appearing, +Cachectic, no apparent distress Head: normocephalic, Atraumatic, poor dentition Eyes: normal inspection, EOMI Neck: supple, Trachea midline Respiratory/Chest: Normal breath sounds, CTA Cardiovascular: S1, S2, + murmur Abdomen/GI:Soft, Non tender, +PEG, Bowel sounds present Extremities/Musculoskelatal:normal inspection, + B/L LE ulcers Neurologic/Psych:Moves all extremities Skin: normal color, warm, + sacral decubitus ulcer, Multiple ulcerations Results & Data Laboratory Results Short CBC 10/08/18 Range/Units 08:55 WBC 11.75 H (4.8-10.8) K/uL Hgb 7.1 L (14.0-18.0) g/dL Hct 21.9 L (42-52) % Plt Count 447 H (130-400) K/uL BMP 10/07/18 10/07/18 10/08/18 15:51 20:17 08:55 Sodium 141 139 140 Potassium 6.3 H* 5.1 D 4.3 D Chloride 109 H 107 103 Carbon Dioxide 20 L 23 27 BUN 104 H 99 H 86 H Creatinine 3.54 H 3.22 H D 2.79 H D Glucose 92 114 H 177 H Calcium 7.9 L 7.8 L 8.1 L (1) Acute renal failure Acute renal failure type: unspecified Qualified Code(s): N17.9 - Acute kidney failure, unspecified
[2018-10-08 16:58] LABS: Partial Thromboplastin Ratio 1.4
--- NOTE | 2018-10-08 17:12 | Nephrology Progress Note ---
Date of Service October 08, 2018 Assessment & Plan (1) Acute kidney injury: Patient with acute kidney injury likely due to prerenal azotemia. He could have ATN from the chronic infection. Creatinine improving with IV fluids, down to 2.79 from 3.22. Recommend continuing maintenance fluids with normal saline at 75 mL/h. Monitor input output. Avoid nephrotoxins unless lifesaving. (2) Metabolic acidosis: Due to acute kidney injury. Improving with IV fluids. No need for bicarbonate supplementation. Subjective Patient seen in follow-up for acute kidney injury. He is unable to give history due to mental retardation. Creatinine downtrending to 2.79. Review of Systems Unobtainable due to cognitive status Physical Exam Vital Signs (Past 24 Hours): Last Vital Signs Temp 36.2 C L 10/08/18 15:45 Pulse 74 10/08/18 16:00 Resp 18 10/08/18 15:45 BP 113/60 10/08/18 15:45 Pulse Ox 97 10/08/18 15:45 Physical Exam: General exam: Appears comfortable, no acute distress HEENT: Pupils are equal and reactive to light Neck: No JVD, neck is supple trachea is midline Respiratory system: Clear breath sounds bilaterally. Gastrointestinal: Abdomen is soft, non distended, non tender, bowel sounds are present CVS: Regular rate and rhythm. No murmurs, rubs or gallops Musculoskeletal: No joint or muscle tenderness Extremities: Non tender, no edema, peripheral pulses are present Neuro: Awake, no tremors Skin: Pressure ulcers on the sacrum and legs Results & Data Laboratory Results Creatinine 2.79, BUN of 86, potassium 4.3, hemoglobin 7.1
[2018-10-08 17:24] LABS: Hematocrit (blood only) 21.4 % (42-52); Hemoglobin 6.9 g/dL (14.0-18.0)
[2018-10-08] MEDS: HEPARIN LOW DOSE DEXTROSE 25,000 UNITS/500 ML IV SCH (18:51)
[2018-10-08] MEDS ORDERED: SODIUM CHLORIDE 0.9% 1000ML 1,000 ML IV ONE (21:00)
[2018-10-09] MEDS: CHECK FENTANYL PATCH PLACEMENT SCH ×4 (01:00→23:57)
[2018-10-09 01:07] LABS: Partial Thromboplastin Ratio 1.7
[2018-10-09 01:11] LABS: Partial Thromboplastin Time 47.1 Seconds (21.0-31.0)
[2018-10-09] MEDS: OXYCODONE HCL IR 5 MG TAB (IMMEDIATE RELEASE) PO SCH ×5 (01:35→23:54)
[2018-10-09] MEDS: LEVOTHYROXINE SODIUM 25 MCG TABLET PO SCH (05:43)
[2018-10-09 07:28] LABS: Hematocrit (blood only) 24.5 % (42-52); Mean Corpuscular Hgb Conc 32.7 g/dL (32-36); Mean Corpuscular Volume 81.1 fL (80-100); Mean Platelet Volume 9.2 fL (7.4-10.4); Platelet Count 454 K/uL (130-400); RDW Coefficient of Variation 17.4 % (11.5-14.5); RDW Standard Deviation 51.7 fL (36.4-46.3); Red Blood Count 3.02 M/uL (4.7-6.1)
[2018-10-09] MEDS: CEFEPIME 500 MG in SYRINGE 0 ML IV SCH (07:39)
[2018-10-09] MEDS: THIAMINE HCL 100 MG TAB PO SCH (07:40)
[2018-10-09] MEDS: PANTOprazole 40 MG in SYRINGE 0 ML IV SCH (07:40)
[2018-10-09] MEDS: METOPROLOL TARTRATE 25 MG TAB PO SCH ×2 (07:40→21:40)
[2018-10-09] MEDS: DOCUSATE SODIUM 100 MG CAP PO SCH ×2 (07:40→21:35)
[2018-10-09] MEDS: BACLOFEN 10 MG TAB PO SCH ×3 (07:40→21:39)
[2018-10-09] MEDS: CEROVITE ADV FORMULA TAB PO SCH (07:41)
[2018-10-09] MEDS: DIVALPROEX SODIUM SPRINKLE 125 MG CAP PO SCH ×2 (07:41→21:37)
[2018-10-09] MEDS: SACCHAROMYCES BOULARDII 250 MG CAP PO SCH (07:41)
[2018-10-09] MEDS: FOLIC ACID 1 MG TAB PO SCH (07:41)
[2018-10-09 08:05] LABS: Calcium 7.9 mg/dl (8.5-10.1); Creatinine Clr Calc Pharmacy 22.7 ml/min; Est GFR (African American) 39.7; Est GFR (Non-African American) 34.2; Potassium 3.7 mmol/L (3.5-5.1)
[2018-10-09 08:35] LABS: Partial Thromboplastin Time 53.2 Seconds (21.0-31.0)
[2018-10-09] MEDS: CHOLESTYRAMINE LIGHT 4 GM PKT PO SCH ×2 (10:30→17:30)
[2018-10-09] MEDS: DOXYCYCLINE HYCLATE 100 MG in DEXTROSE 5% 100 ML IV SCH ×2 (10:30→23:51)
[2018-10-09] MEDS: FERROUS SULFATE 325 MG/7.4 ML UDP PO SCH ×2 (10:31→17:30)
--- NOTE | 2018-10-09 13:19 | Nephrology Progress Note ---
Date of Service October 09, 2018 Assessment & Plan (1) Acute kidney injury: Patient with acute kidney injury likely due to ischemic ATN in setting of infection. Creatinine is downtrending to 1.9 from 2.7 yesterday. His BUN is high likely due to tube feeds. Continue supportive management. Monitor input output and daily BMP. Avoid nephrotoxins unless lifesaving. (2) HTN (hypertension): Blood pressure is above target today. Unclear if this is due to agitation while taking the reading. Would not make changes. Subjective Patient seen in follow-up for acute kidney injury. He is unable to give history due to mental status. Creatinine downtrending to 1.9. Review of Systems Unobtainable due to mental health condition Physical Exam Vital Signs (Past 24 Hours): Last Vital Signs Temp 36.5 C 10/09/18 11:07 Pulse 63 10/09/18 11:07 Resp 18 10/09/18 11:07 BP 161/74 H 10/09/18 11:07 Pulse Ox 98 10/09/18 11:07 Physical Exam: General exam: Appears comfortable, no acute distress HEENT: Pupils are equal and reactive to light Neck: No JVD, neck is supple trachea is midline Respiratory system: Clear breath sounds bilaterally. Gastrointestinal: Abdomen is soft, non distended, non tender, bowel sounds are present. Has PEG tube CVS: Regular rate and rhythm. No murmurs, rubs or gallops Musculoskeletal: No joint or muscle tenderness Extremities: Non tender, no edema, peripheral pulses are present Neuro: Intermittently agitated, flexion contractures Skin: Pressure sores on the sacrum Results & Data Laboratory Results Creatinine 1.9, BUN 61, potassium 3.7 hemoglobin of 8
--- NOTE | 2018-10-09 14:18 | Hospitalist Progress Note ---
Date of Service October 09, 2018 Assessment & Plan (1) Acute kidney injury: BUN 107, creatinine 3.49. Baseline creatinine = 0.76 09/30/18. Suspect ZARA secondary to volume depletion. Consider vancomycin nephrotoxicity (although vanco levels were monitored closely). Check renal US to rule out obstruction-chronic bladder outlet obstruction as per ultrasound Continue IV fluids. Consult Nephrology. Appreciate input and recommendation Creatinine has been improving Present on Admission?: Yes (2) Metabolic acidosis: Admitted with a change in mental status noted to have AK I with metabolic acidosis Likely has metabolic encephalopathy No definite sepsis Clinically stable (3) Chronic systolic CHF (congestive heart failure): History of chronic left ventricular systolic heart failure due to ischemic heart diasease. Appears to be compensated at time of admission. No IRVIN or ARB due to ZARA. Follow status closely while receiving IV fluids. Received intravenous fluid We will monitor for any fluid overload (4) Schizoid personality disorder: No acute delirium and/or acute psychosis Continue with current medications (5) Decubitus ulcer: Multiple chronic skin ulcers, some dating back 2-3 years. Several stage IV ulcers- sacrum, bilat hips, right buttock, left lateral malleous. None of the ulcers appear to be grossly infected at this time. Consult Wound Care Nursing-appreciate input and recommendation. Reposition q [address] hours. Specialty bed. Optimize nutritional status (6) Severe protein-calorie malnutrition: Severe protein-calorie malnutrition. Wt 45.9 kg, BMI 14.1. Recent PEG placement-discharge around PEG tube site has been improving. Continue nutrional support orally and via PEG. Consult Nutrition.-Appreciate input and recommendation (7) Anemia: Has anemia of chronic disease and chronic malnutrition Received 1 unit of blood transfusion due to low hemoglobin of 6.9 Hemoglobin today is 8.0 We will monitor Other significant medical conditions remained stable We will continue current medications We will transfer to medical floor for continuation of care Subjective He is a 73-year-old female with significant past medical history of schizoid personality disorder, coronary artery disease, CHF, DVT, and other problems. He was admitted from [facility] with change in mental status, drainage around PEG tube insertion site and ZARA 10/09 The patient was seen and examined in telemetry unit Initially he did not want to talk to me and asked me to leave the room After about 3 hours he talked to me and denied any symptoms except weakness He mentioned that he wants to be discharged Physical Exam Vital Signs (Past 24 Hours): Last Vital Signs Temp 36.5 C 10/09/18 11:07 Pulse 63 10/09/18 11:07 Resp 18 10/09/18 11:07 BP 161/74 H 10/09/18 11:07 Pulse Ox 98 10/09/18 11:07 Physical Exam: Lying in bed comfortably Constitutional: + ill appearing and + cachectic; no acute distress Eyes: PERRL, conjunctivae normal, anicteric sclerae ENMT: external ear and nose normal, oropharynx normal Nose: + dry nasal mucous membranes Mouth: + dentition abnormality (poor dentition) Neck: trachea midline, no thyromegaly Respiratory: normal respiratory effort, lungs clear to auscultation Cardiovascular: Rate/Rhythm: regular rate Heart Sounds: + murmur (I/ sys murmur LSB); no gallop and no cardiac rub Vessels: no JVD, + posterior tibial pulses abnormal and + dorsalis pedis pulses abnormal Extremities: normal capillary refill (about 2 seconds bilat toes); no calf tenderness and no edema Gastrointestinal (Abdomen): Inspection/Auscultation: normal bowel sounds; + abdomen abnormal to inspection (PEG with minimal surrounding erythema) Percussion/Palpation: abdomen soft; abdomen nontender and no guarding Musculoskeletal: Head/Neck/Chest: neck supple Extremities: no cyanosis Skin: + ulcer Has multiple decubiti wounds Psychiatric: Orientation: alert Lymphatic: no cervical lymphadenopathy Results & Data Laboratory Results Short CBC 10/08/18 10/09/18 Range/Units 16:25 07:21 WBC 8.00 (4.8-10.8) K/uL Hgb 6.9 L* 8.0 L (14.0-18.0) g/dL Hct 21.4 L 24.5 L (42-52) % Plt Count 454 H (130-400) K/uL BMP 10/09/18 07:21 Sodium 143 Potassium 3.7 Chloride 107 Carbon Dioxide 28 BUN 61 H Creatinine 1.91 H D Glucose 112 H Calcium 7.9 L Medications Administered Current Inpatient Medications Acetaminophen (Tylenol) 650 mg PO Q6H PRN PRN Reason: mild pain 1-3/fever>101 Stop: 11/06/18 05:30 Baclofen (Lioresal) 5 mg PO TID [facility] Stop: 11/06/18 08:59 Last Admin: 10/09/18 13:02 Dose: 5 mg Documented by: Cholestyramine Resin (Questran) 4 gm PO BID@1000,1800 [facility] Stop: 11/06/18 09:59 Last Admin: 10/09/18 10:30 Dose: 4 gm Documented by: Divalproex Sodium (Depakote Sprinkle) 500 mg PO BID [facility] Stop: 11/06/18 08:59 Last Admin: 10/09/18 07:41 Dose: 500 mg Documented by: Docusate Sodium (Colace) 100 mg PO BID [facility] Stop: 11/06/18 08:59 Last Admin: 10/09/18 07:40 Dose: 100 mg Documented by: Enteral Nutritional Formula (Peptamen 1.5) 1,000 ml PEG UD [facility]; Protocol Stop: 11/06/18 16:59 Last Admin: 10/07/18 20:17 Dose: Not Given Documented by: Fentanyl (Duragesic) 25 mcg TD Q3D [facility] Stop: 10/21/18 08:59 Last Admin: 10/07/18 09:35 Dose: 25 mcg Documented by: Ferrous Sulfate (Feosol) 325 mg PO BIDM [facility] Stop: 11/07/18 08:44 Last Admin: 10/09/18 10:31 Dose: 325 mg Documented by: Folic Acid (Folvite) 1 mg PO DAILY [facility] Stop: 11/06/18 08:59 Last Admin: 10/09/18 07:41 Dose: 1 mg Documented by: Heparin Sodium (Beef Lung) (Heparin Sod 10 Unit/Ml Flush) 10 ml FLUSH PRN PRN PRN Reason: Flush Stop: 11/06/18 06:55 Cefepime HCl 500 mg/ Syringe 5.65 mls @ 5.5 mls/min IV Q24H [facility]; Protocol Stop: 10/12/18 23:59 Last Admin: 10/09/18 07:39 Dose: 5.5 mls/min Documented by: Heparin Sodium/Dextrose (Heparin Sodium/Dextrose) 25,000 units in 500 mls @ 19 mls/hr IV .Q24H [facility]; Protocol Stop: 11/06/18 10:59 Last Titration: 10/09/18 09:25 Dose: 950 units/hr, 19 mls/hr Documented by: Pantoprazole Sodium 40 mg/ (Syringe) 10 mls @ 5 mls/min IV DAILY@0900 [facility] Stop: 11/07/18 08:59 Last Admin: 10/09/18 07:40 Dose: 5 mls/min Documented by: Doxycycline Hyclate 100 mg/ (Dextrose) 110 mls @ 55 mls/hr IV DAILY@1000,2200 [facility] Stop: 10/17/18 09:59 Last Infusion: 10/09/18 12:30 Dose: Infused Documented by: Sodium Chloride (Nss 250ml) 250 mls @ 15 mls/hr IV .[id number] PRN PRN Reason: For Transfusion Stop: 11/07/18 17:38 Levothyroxine Sodium (Synthroid) 25 mcg PO DAILYBB [facility] Stop: 11/06/18 06:44 Last Admin: 10/09/18 05:43 Dose: 25 mcg Documented by: Metoprolol Tartrate (Lopressor) 25 mg PO BID [facility] Stop: 11/06/18 08:59 Last Admin: 10/09/18 07:40 Dose: 25 mg Documented by: Miscellaneous (Fentanyl Patch Check Placement) 1 ea N/A QS [facility] Stop: 11/06/18 15:59 Last Admin: 10/09/18 07:42 Dose: 1 ea Documented by: Miscellaneous (Fentanyl Patch Remove & Waste) 1 ea N/A Q3D@0859 [facility] Stop: 11/09/18 08:58 Miscellaneous Information (Cefepime Consult Active) 1 ea N/A UD PRN PRN Reason: Consult Stop: 11/06/18 06:40 Multivitamins/Minerals (Multivitamin W/ Minerals Tab) 1 tab PO 0700 [facility] Stop: 11/07/18 06:59 Last Admin: 10/09/18 07:41 Dose: 1 tab Documented by: Oxycodone HCl (Roxicodone Immediate Rel) 5 mg PO Q6 [facility] Stop: 10/21/18 05:59 Last Admin: 10/09/18 13:02 Dose: 5 mg Documented by: Polyethylene Glycol (Miralax Powder Packet) 17 gm PO DAILY PRN PRN Reason: Constipation Stop: 11/06/18 16:16 Saccharomyces Boulardii (Florastor) 250 mg PO BID [facility] Stop: 11/06/18 08:59 Last Admin: 10/09/18 07:41 Dose: 250 mg Documented by: Thiamine HCl (Vitamin B-1) 100 mg PO DAILY [facility] Stop: 11/06/18 08:59 Last Admin: 10/09/18 07:40 Dose: 100 mg Documented by: Tramadol HCl (Ultram) 50 mg PO Q6H PRN PRN Reason: mod pain 4-10 on 1-10 scale Stop: 11/06/18 05:30
[2018-10-09] MEDS: HEPARIN LOW DOSE DEXTROSE 25,000 UNITS/500 ML IV SCH (21:30)
[2018-10-09] MEDS: PEPTAMEN 1.5 CAL 1,000 ML BAG PEG SCH (21:32)
[2018-10-09] MEDS: LACTOBACILLUS ACIDOPHILUS (FLORANEX) TAB PO SCH (23:55)
[2018-10-10] MEDS: OXYCODONE HCL IR 5 MG TAB (IMMEDIATE RELEASE) PO SCH ×3 (05:52→18:15)
[2018-10-10] MEDS: LEVOTHYROXINE SODIUM 25 MCG TABLET PO SCH (05:54)
[2018-10-10 06:25] LABS: Partial Thromboplastin Ratio 1.4; Partial Thromboplastin Time 39.1 Seconds (21.0-31.0)
[2018-10-10 06:41] LABS: BUN Creatinine Ratio 30.8 (10-20); Calcium 7.6 mg/dl (8.5-10.1); Est GFR (African American) 66.9; Est GFR (Non-African American) 57.7; Potassium 3.3 mmol/L (3.5-5.1)
[2018-10-10] MEDS ORDERED: HEPARIN IV BOLUS 3,000 UNITS in SYRINGE 0 ML IV ONE (06:45)
[2018-10-10] MEDS: FERROUS SULFATE 325 MG/7.4 ML UDP PO SCH ×2 (08:21→16:10)
[2018-10-10] MEDS: DIVALPROEX SODIUM SPRINKLE 125 MG CAP PO SCH ×2 (08:23→21:15)
[2018-10-10] MEDS: BACLOFEN 10 MG TAB PO SCH ×3 (08:24→21:17)
[2018-10-10] MEDS: CEROVITE ADV FORMULA TAB PO SCH (08:25)
[2018-10-10] MEDS: THIAMINE HCL 100 MG TAB PO SCH (08:26)
[2018-10-10] MEDS: LACTOBACILLUS ACIDOPHILUS (FLORANEX) TAB PO SCH ×2 (08:27→21:16)
[2018-10-10] MEDS: FOLIC ACID 1 MG TAB PO SCH (08:28)
[2018-10-10] MEDS: PANTOprazole 40 MG in SYRINGE 0 ML IV SCH (08:28)
[2018-10-10] MEDS: DOCUSATE SODIUM 100 MG CAP PO SCH ×2 (08:28→21:29)
[2018-10-10] MEDS: METOPROLOL TARTRATE 25 MG TAB PO SCH ×2 (08:29→21:18)
[2018-10-10] MEDS: fentaNYL 25 MCG/HR TDSY TD SCH (08:41)
[2018-10-10] MEDS: CHECK FENTANYL PATCH PLACEMENT SCH ×3 (08:44→23:56)
[2018-10-10] MEDS: CEFEPIME 500 MG in SYRINGE 0 ML IV SCH (09:29)
[2018-10-10] MEDS: DOXYCYCLINE HYCLATE 100 MG in DEXTROSE 5% 100 ML IV SCH (09:29)
[2018-10-10] MEDS: CHOLESTYRAMINE LIGHT 4 GM PKT PO SCH ×2 (09:31→18:15)
[2018-10-10 14:04] LABS: Partial Thromboplastin Ratio 2.1
--- NOTE | 2018-10-10 14:34 | Hospitalist Progress Note ---
Date of Service October 10, 2018 Assessment & Plan (1) Acute kidney injury: (1) Acute kidney injury: BUN 107, creatinine 3.49. Baseline creatinine = 0.76 09/30/18. Suspect ZARA secondary to volume depletion. Consider vancomycin nephrotoxicity (although vanco levels were monitored closely). Check renal US to rule out obstruction-chronic bladder outlet obstruction as per ultrasound Continue IV fluids Consult Nephrology. Appreciate input and recommendation Creatinine has been improving Creatinine is at baseline now Continue IV fluid for now (2) Metabolic acidosis: Admitted with a change in mental status noted to have AK I with metabolic acidosis Likely has metabolic encephalopathy No definite sepsis Clinically stable and resolved (3) Chronic systolic CHF (congestive heart failure): History of chronic left ventricular systolic heart failure due to ischemic heart diasease. Appears to be compensated at time of admission. No IRVIN or ARB due to ZARA. Follow status closely while receiving IV fluids. Received intravenous fluid We will monitor for any fluid overload No evidence of fluid overload (4) Schizoid personality disorder: No acute delirium and/or acute psychosis Continue with current medications No acute delirium (5) Decubitus ulcer: Multiple chronic skin ulcers, some dating back 2-3 years. Several stage IV ulcers- sacrum, bilat hips, right buttock, left lateral malleous. None of the ulcers appear to be grossly infected at this time. Consult Wound Care Nursing-appreciate input and recommendation. Reposition q [address]. Optimize nutritional status and continue with the wound care (6) Severe protein-calorie malnutrition: Severe protein-calorie malnutrition. Wt 45.9 kg, BMI 14.1. Recent PEG placement-discharge around PEG tube site has been improving. Continue nutrional support orally and via PEG. Consult Nutrition.-Appreciate input and recommendation Continue to feed to PEG (7) Anemia: Has anemia of chronic disease and chronic malnutrition Received 1 unit of blood transfusion due to low hemoglobin of 6.9 Hemoglobin today is 8.0 We will monitor-hemoglobin 8.0 today 3/ Other significant medical conditions remained stable We will continue current medications We will transfer to medical floor for continuation of care Tried to call his brother to update his current medical condition. Did notget a response Subjective He is a 73-year-old female with significant past medical history of schizoid personality disorder, coronary artery disease, CHF, DVT, and other problems. He was admitted from [facility] with change in mental status, drainage around PEG tube insertion site and ZARA 3/6 The patient was seen and examined in telemetry unit Initially he did not want to talk to me and asked me to leave the room After about 3 hours he talked to me and denied any symptoms except weakness He mentioned that he wants to be discharged 10/10 The patient was seen and examined the medical floor He remains stable at his baseline Denies any symptoms and wants to get out of the hospital No fever and/or chills Physical Exam Vital Signs (Past 24 Hours): Last Vital Signs Temp 36.7 C 10/10/18 08:40 Pulse 52 L 10/10/18 08:40 Resp 18 10/10/18 08:40 BP 130/66 10/10/18 08:40 Pulse Ox 91 10/10/18 08:40 Physical Exam: No apparent distress at rest Constitutional: + cachectic; no acute distress Eyes: PERRL, conjunctivae normal, anicteric sclerae ENMT: external ear and nose normal, oropharynx normal Nose: + dry nasal mucous membranes Mouth: + dentition abnormality (poor dentition) Neck: trachea midline, no thyromegaly Respiratory: normal respiratory effort Auscultation: + diminished lung sounds Cardiovascular: Rate/Rhythm: regular rate Heart Sounds: + murmur (I/ sys murmur LSB); no gallop and no cardiac rub Vessels: no JVD, + posterior tibial pulses abnormal and + dorsalis pedis pulses abnormal Extremities: normal capillary refill (about 2 seconds bilat toes); no calf tenderness and no edema Gastrointestinal (Abdomen): Inspection/Auscultation: normal bowel sounds; + abdomen abnormal to inspection (PEG with minimal surrounding erythema) Percussion/Palpation: abdomen soft; abdomen nontender and no guarding Musculoskeletal: Head/Neck/Chest: neck supple Extremities: no cyanosis Shoulder: + deformity (Flexor deformities involving the upper and lower extremities) and + limited ROM (All joints) Skin: + ulcer Neurologic: Alert and awake. Confused. Has a schizophrenia Psychiatric: Orientation: alert Mood: + depressed mood Lymphatic: no cervical lymphadenopathy Results & Data Laboratory Results [facility] 10/10/18 05:00 Sodium 143 Potassium 3.3 L Chloride 109 H Carbon Dioxide 28 BUN 38 H Creatinine 1.24 D Glucose 88 Calcium 7.6 L Medications Administered Current Inpatient Medications Acetaminophen (Tylenol) 650 mg PO Q6H PRN PRN Reason: mild pain 1-3/fever>101 Stop: 11/06/18 05:30 Baclofen (Lioresal) 5 mg PO TID [facility] Stop: 11/06/18 08:59 Last Admin: 10/10/18 13:11 Dose: Not Given Documented by: Cholestyramine Resin (Questran) 4 gm PO BID@1000,1800 [facility] Stop: 11/06/18 09:59 Last Admin: 10/10/18 09:31 Dose: 4 gm Documented by: Divalproex Sodium (Depakote Sprinkle) 500 mg PO BID [facility] Stop: 11/06/18 08:59 Last Admin: 10/10/18 08:23 Dose: 500 mg Documented by: Docusate Sodium (Colace) 100 mg PO BID [facility] Stop: 11/06/18 08:59 Last Admin: 10/10/18 08:28 Dose: 100 mg Documented by: Doxycycline Hyclate (Vibramycin) 100 mg PO BID [facility]; Protocol Stop: 10/17/18 21:01 Enteral Nutritional Formula (Peptamen 1.5) 1,000 ml PEG UD [facility]; Protocol Stop: 11/06/18 16:59 Last Admin: 10/09/18 21:32 Dose: 1,000 ml Documented by: Fentanyl (Duragesic) 25 mcg TD Q3D [facility] Stop: 10/21/18 08:59 Last Admin: 10/10/18 08:41 Dose: 25 mcg Documented by: Ferrous Sulfate (Feosol) 325 mg PO BIDM [facility] Stop: 11/07/18 08:44 Last Admin: 10/10/18 08:21 Dose: 325 mg Documented by: Folic Acid (Folvite) 1 mg PO DAILY [facility] Stop: 11/06/18 08:59 Last Admin: 10/10/18 08:28 Dose: 1 mg Documented by: Heparin Sodium (Beef Lung) (Heparin Sod 10 Unit/Ml Flush) 10 ml FLUSH PRN PRN PRN Reason: Flush Stop: 11/06/18 06:55 Heparin Sodium/Dextrose (Heparin Sodium/Dextrose) 25,000 units in 500 mls @ 21 mls/hr IV .[id number] [facility]; Protocol Stop: 11/06/18 10:59 Last Titration: 10/10/18 07:14 Dose: 1,050 units/hr, 21 mls/hr Documented by: Sodium Chloride (Nss 250ml) 250 mls @ 15 mls/hr IV .[id number] PRN PRN Reason: For Transfusion Stop: 11/07/18 17:38 Cefepime HCl 1,000 mg/ Syringe 11.3 mls @ 5.5 mls/min IV Q24H [facility]; Protocol Stop: 10/12/18 08:03 Lactobacillus Acidophilus (Floranex) 4 tab PO BID [facility]; Protocol Stop: 11/08/18 22:29 Last Admin: 10/10/18 08:27 Dose: 4 tab Documented by: Levothyroxine Sodium (Synthroid) 25 mcg PO DAILYBB [facility] Stop: 11/06/18 06:44 Last Admin: 10/10/18 05:54 Dose: Not Given Documented by: Metoprolol Tartrate (Lopressor) 25 mg PO BID [facility] Stop: 11/06/18 08:59 Last Admin: 10/10/18 08:29 Dose: 25 mg Documented by: Miscellaneous (Fentanyl Patch Check Placement) 1 ea N/A QS [facility] Stop: 11/06/18 15:59 Last Admin: 10/10/18 08:44 Dose: 1 ea Documented by: Miscellaneous (Fentanyl Patch Remove & Waste) 1 ea N/A Q3D@0859 [facility] Stop: 11/09/18 08:58 Last Admin: 10/10/18 08:43 Dose: 1 ea Documented by: Miscellaneous Information (Cefepime Consult Active) 1 ea N/A UD PRN PRN Reason: Consult Stop: 11/06/18 06:40 Multivitamins/Minerals (Multivitamin W/ Minerals Tab) 1 tab PO 0700 [facility] Stop: 11/07/18 06:59 Last Admin: 10/10/18 08:25 Dose: 1 tab Documented by: Oxycodone HCl (Roxicodone Immediate Rel) 5 mg PO Q6 [facility] Stop: 10/21/18 05:59 Last Admin: 10/10/18 12:15 Dose: Not Given Documented by: Pantoprazole Sodium (Protonix) 40 mg PO DAILY [facility]; Protocol Stop: 11/10/18 08:59 Polyethylene Glycol (Miralax Powder Packet) 17 gm PO DAILY PRN PRN Reason: Constipation Stop: 11/06/18 16:16 Thiamine HCl (Vitamin B-1) 100 mg PO DAILY [facility] Stop: 11/06/18 08:59 Last Admin: 10/10/18 08:26 Dose: 100 mg Documented by: Tramadol HCl (Ultram) 50 mg PO Q6H PRN PRN Reason: mod pain 4-10 on 1-10 scale Stop: 11/06/18 05:30
[2018-10-10 15:00] LABS: Partial Thromboplastin Time 56.5 Seconds (21.0-31.0)
[2018-10-10] MEDS: HEPARIN LOW DOSE DEXTROSE 25,000 UNITS/500 ML IV SCH (21:03)
[2018-10-10] MEDS: PEPTAMEN 1.5 CAL 1,000 ML BAG PEG SCH (21:06)
[2018-10-10] MEDS: DOXYCYCLINE HYCLATE 100 MG CAP PO SCH (21:19)
[2018-10-11] MEDS: OXYCODONE HCL IR 5 MG TAB (IMMEDIATE RELEASE) PO SCH ×3 (00:46→12:32)
[2018-10-11] MEDS: LEVOTHYROXINE SODIUM 25 MCG TABLET PO SCH (06:10)
[2018-10-11] MEDS: CEROVITE ADV FORMULA TAB PO SCH (06:10)
[2018-10-11 06:38] LABS: Partial Thromboplastin Ratio 1.9
[2018-10-11 06:51] LABS: Partial Thromboplastin Time 50.4 Seconds (21.0-31.0)
[2018-10-11 07:05] LABS: BUN Creatinine Ratio 27.1 (10-20); Calcium 7.9 mg/dl (8.5-10.1); Creatinine Clr Calc Pharmacy 46.1 ml/min; Est GFR (African American) 93.5; Est GFR (Non-African American) 80.7; Potassium 3.2 mmol/L (3.5-5.1)
[2018-10-11] MEDS ORDERED: CEFEPIME 1,000 MG in SYRINGE 0 ML IV SCH (08:00)
[2018-10-11] MEDS: CHECK FENTANYL PATCH PLACEMENT SCH (08:33)
[2018-10-11] MEDS: LACTOBACILLUS ACIDOPHILUS (FLORANEX) TAB PO SCH (08:34)
[2018-10-11] MEDS: METOPROLOL TARTRATE 25 MG TAB PO SCH (08:34)
[2018-10-11] MEDS: THIAMINE HCL 100 MG TAB PO SCH (08:36)
[2018-10-11] MEDS ORDERED: POTASSIUM CHLORIDE 20 MEQ TABCR PO STA (08:36)
[2018-10-11] MEDS: DOXYCYCLINE HYCLATE 100 MG CAP PO SCH (08:37)
[2018-10-11] MEDS: BACLOFEN 10 MG TAB PO SCH ×2 (08:37→12:33)
[2018-10-11] MEDS: DIVALPROEX SODIUM SPRINKLE 125 MG CAP PO SCH (08:38)
[2018-10-11] MEDS: FERROUS SULFATE 325 MG/7.4 ML UDP PO SCH (08:40)
[2018-10-11] MEDS: FOLIC ACID 1 MG TAB PO SCH (08:41)
[2018-10-11] MEDS: DOCUSATE SODIUM 100 MG CAP PO SCH (08:54)
[2018-10-11] MEDS ORDERED: PANTOprazole 40 MG TAB PO SCH (09:00)
[2018-10-11] MEDS: CHOLESTYRAMINE LIGHT 4 GM PKT PO SCH (09:44)
--- NOTE | 2018-10-11 11:35 | Hospitalist Progress Note ---
Date of Service October 11, 2018 Assessment & Plan (1) Acute kidney injury: (1) Acute kidney injury: (1) Acute kidney injury: BUN 107, creatinine 3.49. Baseline creatinine = 0.76 09/30/18. Suspect ZARA secondary to volume depletion. Consider vancomycin nephrotoxicity (although vanco levels were monitored closely). Check renal US to rule out obstruction-chronic bladder outlet obstruction as per ultrasound Continue IV fluids Consult Nephrology. Appreciate input and recommendation Creatinine has been normalized Patient will be discharged today (2) Metabolic acidosis: Admitted with a change in mental status noted to have AK I with metabolic acidosis Likely has metabolic encephalopathy No definite sepsis Clinically stableAt his baseline. (3) Chronic systolic CHF (congestive heart failure): History of chronic left ventricular systolic heart failure due to ischemic heart diasease. Appears to be compensated at time of admission. No IRVIN or ARB due to ZARA. Follow status closely while receiving IV fluids. Received intravenous fluid We will monitor for any fluid overload No evidence of fluid overload (4) Schizoid personality disorder: No acute delirium and/or acute psychosis Continue with current medications No acute delirium (5) Decubitus ulcer: Multiple chronic skin ulcers, some dating back 2-3 years. Several stage IV ulcers- sacrum, bilat hips, right buttock, left lateral malleous. None of the ulcers appear to be grossly infected at this time. Consult Wound Care Nursing-appreciate input and recommendation. Reposition q [address] hours[address] Specialty bed. Optimize nutritional status and continue with the wound care We will continue oral doxycycline for 3 more days to treat possible pneumonia/pneumonitis involving the right upper lobe (6) Severe protein-calorie malnutrition: Severe protein-calorie malnutrition. Wt 45.9 kg, BMI 14.1. Recent PEG placement-discharge around PEG tube site has been improving. Continue nutrional support orally and via PEG. Consult Nutrition.-Appreciate input and recommendation PEG tube site infection has been controlled Continue PEG tube feeding with additional water to prevent dehydration (7) Anemia: Has anemia of chronic disease and chronic malnutrition Received 1 unit of blood transfusion due to low hemoglobin of 6.9 Hemoglobin today is 8.0 We will monitor-hemoglobin 8.0 today 3/ Other significant medical conditions remained stable We will continue current medications We will transfer to medical floor for continuation of care Tried to call his brother to update his current medical condition. Did not get a response Try to call the brother again today but without any response Will discharge this afternoon Subjective He is a 73-year-old female with significant past medical history of schizoid personality disorder, coronary artery disease, CHF, DVT, and other problems. He was admitted from [facility] with change in mental status, drainage around PEG tube insertion site and ZARA 10/09 The patient was seen and examined in telemetry unit Initially he did not want to talk to me and asked me to leave the room After about 3 hours he talked to me and denied any symptoms except weakness He mentioned that he wants to be discharged 10/10 The patient was seen and examined the medical floor He remains stable at his baseline Denies any symptoms and wants to get out of the hospital No fever and/or chills 10/11 The patient was seen and examined in medical floor He remains asymptomatic and without any distress at rest He denies any symptoms today Physical Exam Vital Signs (Past 24 Hours): Last Vital Signs Temp 36.4 C L 10/10/18 22:54 Pulse 53 L 10/10/18 22:54 Resp 18 10/10/18 22:54 BP 158/83 H 10/10/18 22:54 Pulse Ox 97 10/10/18 22:54 Physical Exam: No apparent distress at rest Constitutional: + cachectic; no acute distress Eyes: PERRL, conjunctivae normal, anicteric sclerae ENMT: external ear and nose normal, oropharynx normal Nose: + dry nasal mucous membranes Mouth: + dentition abnormality (poor dentition) Neck: trachea midline, no thyromegaly Respiratory: normal respiratory effort, lungs clear to auscultation normal respiratory effort Auscultation: + diminished lung sounds Cardiovascular: Rate/Rhythm: regular rate Heart Sounds: + murmur (I/ sys murmur LSB); no gallop and no cardiac rub Vessels: no JVD, + posterior tibial pulses abnormal and + dorsalis pedis pulses abnormal Extremities: normal capillary refill (about 2 seconds bilat toes); no calf tenderness and no edema Gastrointestinal (Abdomen): Inspection/Auscultation: normal bowel sounds; + abdomen abnormal to inspection (PEG with minimal surrounding erythema) Percussion/Palpation: abdomen soft; abdomen nontender and no guarding Musculoskeletal: Head/Neck/Chest: neck supple Extremities: no cyanosis Shoulder: + deformity (Flexor deformities involving the upper and lower extremities) and + limited ROM (All joints) Skin: + ulcer Psychiatric: Orientation: alert Mood: + depressed mood Lymphatic: no cervical lymphadenopathy Results & Data Laboratory Results [facility] 10/11/18 05:59 Sodium 144 Potassium 3.2 L Chloride 110 H Carbon Dioxide 28 BUN 25 H Creatinine 0.94 D Glucose 95 Calcium 7.9 L Medications Administered Current Inpatient Medications Acetaminophen (Tylenol) 650 mg PO Q6H PRN PRN Reason: mild pain 1-3/fever>101 Stop: 11/06/18 05:30 Baclofen (Lioresal) 5 mg PO TID [facility] Stop: 11/06/18 08:59 Last Admin: 10/11/18 08:37 Dose: 5 mg Documented by: Cholestyramine Resin (Questran) 4 gm PO BID@1000,1800 [facility] Stop: 11/06/18 09:59 Last Admin: 10/11/18 09:44 Dose: 4 gm Documented by: Divalproex Sodium (Depakote Sprinkle) 500 mg PO BID [facility] Stop: 11/06/18 08:59 Last Admin: 10/11/18 08:38 Dose: 500 mg Documented by: Docusate Sodium (Colace) 100 mg PO BID [facility] Stop: 11/06/18 08:59 Last Admin: 10/11/18 08:54 Dose: 100 mg Documented by: Doxycycline Hyclate (Vibramycin) 100 mg PO BID [facility]; Protocol Stop: 10/17/18 21:01 Last Admin: 10/11/18 08:37 Dose: 100 mg Documented by: Enteral Nutritional Formula (Peptamen 1.5) 1,000 ml PEG UD [facility]; Protocol Stop: 11/06/18 16:59 Last Admin: 10/10/18 21:06 Dose: 1,000 ml Documented by: Fentanyl (Duragesic) 25 mcg TD Q3D [facility] Stop: 10/21/18 08:59 Last Admin: 10/10/18 08:41 Dose: 25 mcg Documented by: Ferrous Sulfate (Feosol) 325 mg PO BIDM [facility] Stop: 11/07/18 08:44 Last Admin: 10/11/18 08:40 Dose: 325 mg Documented by: Folic Acid (Folvite) 1 mg PO DAILY [facility] Stop: 11/06/18 08:59 Last Admin: 10/11/18 08:41 Dose: 1 mg Documented by: Heparin Sodium (Beef Lung) (Heparin Sod 10 Unit/Ml Flush) 10 ml FLUSH PRN PRN PRN Reason: Flush Stop: 11/06/18 06:55 Heparin Sodium/Dextrose (Heparin Sodium/Dextrose) 25,000 units in 500 mls @ 21 mls/hr IV .[id number] [facility]; Protocol Stop: 11/06/18 10:59 Last Titration: 10/11/18 09:57 Dose: 1,050 units/hr, 21 mls/hr Documented by: Sodium Chloride (Nss 250ml) 250 mls @ 15 mls/hr IV .[id number] PRN PRN Reason: For Transfusion Stop: 11/07/18 17:38 Cefepime HCl 1,000 mg/ Syringe 11.3 mls @ 5.5 mls/min IV Q24H [facility]; Protocol Stop: 10/12/18 08:03 Last Admin: 10/11/18 08:54 Dose: 5.5 mls/min Documented by: Lactobacillus Acidophilus (Floranex) 4 tab PO BID [facility]; Protocol Stop: 11/08/18 22:29 Last Admin: 10/11/18 08:34 Dose: 4 tab Documented by: Levothyroxine Sodium (Synthroid) 25 mcg PO DAILYBB [facility] Stop: 11/06/18 06:44 Last Admin: 10/11/18 06:10 Dose: 25 mcg Documented by: Metoprolol Tartrate (Lopressor) 25 mg PO BID [facility] Stop: 11/06/18 08:59 Last Admin: 10/11/18 08:34 Dose: Not Given Documented by: Miscellaneous (Fentanyl Patch Check Placement) 1 ea N/A QS [facility] Stop: 11/06/18 15:59 Last Admin: 10/11/18 08:33 Dose: 1 ea Documented by: Miscellaneous (Fentanyl Patch Remove & Waste) 1 ea N/A Q3D@0859 [facility] Stop: 11/09/18 08:58 Last Admin: 10/10/18 08:43 Dose: 1 ea Documented by: Miscellaneous Information (Cefepime Consult Active) 1 ea N/A UD PRN PRN Reason: Consult Stop: 11/06/18 06:40 Multivitamins/Minerals (Multivitamin W/ Minerals Tab) 1 tab PO 0700 [facility] Stop: 11/07/18 06:59 Last Admin: 10/11/18 06:10 Dose: 1 tab Documented by: Oxycodone HCl (Roxicodone Immediate Rel) 5 mg PO Q6 [facility] Stop: 10/21/18 05:59 Last Admin: 10/11/18 06:10 Dose: 5 mg Documented by: Pantoprazole Sodium (Protonix) 40 mg PO DAILY [facility]; Protocol Stop: 11/10/18 08:59 Last Admin: 10/11/18 08:35 Dose: 40 mg Documented by: Polyethylene Glycol (Miralax Powder Packet) 17 gm PO DAILY PRN PRN Reason: Constipation Stop: 11/06/18 16:16 Thiamine HCl (Vitamin B-1) 100 mg PO DAILY [facility] Stop: 11/06/18 08:59 Last Admin: 10/11/18 08:36 Dose: 100 mg Documented by: Tramadol HCl (Ultram) 50 mg PO Q6H PRN PRN Reason: mod pain 4-10 on 1-10 scale Stop: 11/06/18 05:30
[2018-10-11] MEDS: HEPARIN LOW DOSE DEXTROSE 25,000 UNITS/500 ML IV SCH (12:31)
--- NOTE | 2018-10-11 13:35 | Nephrology Progress Note ---
Date of Service October 11, 2018 Assessment & Plan (1) Acute kidney injury: Patient with acute kidney injury due to prerenal azotemia. Creatinine is now back to baseline. He has increased urine output. He appears euvolemic now. Encourage fluid intake via PEG tube. No need for IV fluids. Avoid nephrotoxins unless lifesaving. Renal will sign off. Feel free to call if additional questions or concerns. (2) Hypokalemia: Due to renal potassium wasting in setting of increased diuresis. Recommend potassium chloride 40 mEq daily. Monitor potassium daily while in- house. Subjective Patient seen in follow-up for acute kidney injury. He is unable to give history due to mental status. Creatinine downtrending to 0.9. Urine output of 2 L. Review of Systems Unobtainable due to cognitive status Physical Exam Vital Signs (Past 24 Hours): Last Vital Signs Temp 36.5 C 10/11/18 12:45 Pulse 52 L 10/11/18 12:45 Resp 16 10/11/18 12:45 BP 150/68 H 10/11/18 12:45 Pulse Ox 99 10/11/18 12:45 Physical Exam: General exam: Appears comfortable, no acute distress HEENT: Pupils are equal and reactive to light Neck: No JVD, neck is supple trachea is midline Respiratory system: Clear breath sounds bilaterally. Gastrointestinal: Abdomen is soft, non distended, non tender, bowel sounds are present CVS: Regular rate and rhythm. No murmurs, rubs or gallops Musculoskeletal: No joint or muscle tenderness Extremities: Non tender, no edema, peripheral pulses are present Neuro: Awake, has flexion contractures in the arms and legs Skin: Sacral pressure ulcers Results & Data Laboratory Results Potassium 3.2, creatinine 0.9, BUN 25
--- NOTE | 2018-10-11 18:06 | Discharge Summary ---
Date of Service October 11, 2018 Admission HPI Per Admitting Provider 73 YO male who is a resident at [facility]. History of schizoid personality disorder, coronary artery disease, CHF, DVT, and other problems. The patient is a poor historian. History obtained from records at [facility] and [facility]. Received additional info from nursing staff at [facility]. He has problem with decubitus ulcers, dating back 2-3 years. Apparently the decubiti were due to prolonged immobilization from sitting in a chair. Admitted to [facility] in August of this year with sepsis due to decubitus ulcers. Transferred to [facility] 08/17/18. Imaging consistent with osteomyelitis right femoral head. 6 week course of antibiotic therapy with vancomycin and ertapenem recommended. Transferred to [facility] on 08/23/18. Unable to maintain adequate nutrition by mouth. Patient denies abdominal pain, nausea, vomiting, dysphagia. PEG recommended for supplemental enteral nutrition and was placed about 2 weeks ago. Started receiving supplements via PEG (Peravite); continued pureed diet + supplements orally. Completed course of vancomycin and ertapenem last week. No problems with PEG feedings, but developed drainage around the PEG site and cultures grew Pseudomonas. Stared on cefepime about 2 days prior to admission. Referred to ED tonight because of altered mental status. Found to have acute kidney injury and referred for admission. Patient unable to provide any additional information. Admission Exam Per Admitting Provider Vital Signs (Past 24 Hours): Last Vital Signs Temp 37.0 C 10/07/18 01:52 Pulse 78 10/07/18 04:27 Resp 22 10/07/18 04:27 BP 123/68 10/07/18 04:27 Pulse Ox 95 10/07/18 04:27 Constitutional: + ill appearing and + cachectic; no acute distress Eyes: PERRL, conjunctivae normal, anicteric sclerae ENMT: external ear and nose normal, oropharynx normal Nose: + dry nasal mucous membranes Mouth: + dentition abnormality (poor dentition) Neck: trachea midline, no thyromegaly Respiratory: normal respiratory effort, lungs clear to auscultation Cardiovascular: Rate/Rhythm: regular rate Heart Sounds: + murmur (I/ sys murmur LSB); no gallop and no cardiac rub Vessels: no JVD, + posterior tibial pulses abnormal and + dorsalis pedis pulses abnormal Extremities: normal capillary refill (about 2 seconds bilat toes); no calf tenderness and no edema Gastrointestinal (Abdomen): Inspection/Auscultation: normal bowel sounds; + abdomen abnormal to inspection (PEG with minimal surrounding erythema) Percussion/Palpation: abdomen soft; abdomen nontender Musculoskeletal: Head/Neck/Chest: neck supple Extremities: no cyanosis flexion contractures bilat knees and hips Skin: + ulcer stage IV decubitus ulcers sacrum 7 cm, R hip 7 cm, R ischial tuberosity 3 cm, L hip 7 cm, L lateral malleolus 2 cm, L lateral foot 1 cm skin ulcer right mid lateral back measuring 8 cm in greatest dimension several ulcerations bilat legs all of the ulcers had clean bases Neurologic: PERRL, EOMI no facial palsy no dysarthria or aphasia unable to assess lower extremity strength due to contractures Psychiatric: Orientation: alert Genitourinary: Childs cath Lymphatic: no cervical lymphadenopathy Principal Diagnosis Acute kidney injury-improved, chronic systolic heart failure, decubitus ulcers, malnutrition Discharge Exam Constitutional + cachectic; no acute distress Eyes PERRL, conjunctivae normal, anicteric sclerae ENMT external ear and nose normal, oropharynx normal Nose: + dry nasal mucous membranes Mouth: + dentition abnormality (poor dentition) Neck trachea midline, no thyromegaly Respiratory normal respiratory effort, lungs clear to auscultation normal respiratory effort Auscultation: + diminished lung sounds Cardiovascular Rate/Rhythm: regular rate Heart Sounds: + murmur (I/ sys murmur LSB); no gallop and no cardiac rub Vessels: no JVD, + posterior tibial pulses abnormal and + dorsalis pedis pulses abnormal Extremities: normal capillary refill (about 2 seconds bilat toes); no calf tenderness and no edema Gastrointestinal (Abdomen) Inspection/Auscultation: normal bowel sounds; + abdomen abnormal to inspection (PEG with minimal surrounding erythema) Percussion/Palpation: abdomen soft; abdomen nontender and no guarding Musculoskeletal Head/Neck/Chest: neck supple Extremities: no cyanosis Shoulder: + deformity (Flexor deformities involving the upper and lower extremities) and + limited ROM (All joints) Skin + ulcer Psychiatric Orientation: alert Mood: + depressed mood Lymphatic no cervical lymphadenopathy Discharge Data Allergies Allergy/AdvReac Type Severity Reaction Status Date / Time iodine Allergy Unknown Unknown Verified 10/07/18 10:06 onion AdvReac Intermediate vomitting Verified 10/07/18 10:06 Consultations 10/07/18 04:09 ED Decision to Admit Stat 10/07/18 05:31 Consult Case Management - Discharge Planning Routine 10/07/18 07:56 Consult Nephrology Routine Ordered Studies 10/07/18 02:14 CT head/brain wo con Urgent 10/07/18 07:56 US renal/blad retro comp Urgent Hospital Course (1) Acute kidney injury: October 11, 2018 Assessment & Plan (1) Acute kidney injury: (1) Acute kidney injury: (1) Acute kidney injury: BUN 107, creatinine 3.49. Baseline creatinine = 0.76 09/30/18. Suspect ZARA secondary to volume depletion. Consider vancomycin nephrotoxicity (although vanco levels were monitored closely). Check renal US to rule out obstruction-chronic bladder outlet obstruction as per ultrasound Continue IV fluids Consult Nephrology. Appreciate input and recommendation Creatinine has been normalized Patient will be discharged today (2) Metabolic acidosis: Admitted with a change in mental status noted to have AK I with metabolic acidosis Likely has metabolic encephalopathy No definite sepsis Clinically stableAt his baseline. (3) Chronic systolic CHF (congestive heart failure): History of chronic left ventricular systolic heart failure due to ischemic heart diasease. Appears to be compensated at time of admission. No IRVIN or ARB due to ZARA. Follow status closely while receiving IV fluids. Received intravenous fluid We will monitor for any fluid overload No evidence of fluid overload (4) Schizoid personality disorder: No acute delirium and/or acute psychosis Continue with current medications No acute delirium (5) Decubitus ulcer: Multiple chronic skin ulcers, some dating back 2-3 years. Several stage IV ulcers- sacrum, bilat hips, right buttock, left lateral malleous. None of the ulcers appear to be grossly infected at this time. Consult Wound Care Nursing-appreciate input and recommendation. Reposition q [address]. Optimize nutritional status and continue with the wound care We will continue oral doxycycline for 3 more days to treat possible pneumonia/pneumonitis involving the right upper lobe (6) Severe protein-calorie malnutrition: Severe protein-calorie malnutrition. Wt 45.9 kg, BMI 14.1. Recent PEG placement-discharge around PEG tube site has been improving. Continue nutrional support orally and via PEG. Consult Nutrition.-Appreciate input and recommendation PEG tube site infection has been controlled Continue PEG tube feeding with additional water to prevent dehydration (7) Anemia: Has anemia of chronic disease and chronic malnutrition Received 1 unit of blood transfusion due to low hemoglobin of 6.9 Hemoglobin today is 8.0 We will monitor-hemoglobin 8.0 today 3/6 Other significant medical conditions remained stable We will continue current medications We will transfer to medical floor for continuation of care Tried to call his brother to update his current medical condition. Did not get a response Try to call the brother again today but without any response Will discharge this afternoon Total Time Total Time Spent Total Time Spent (In Minutes): 40 minutes Total Time Includes: Examination of the Patient, Discharge Planning, Medication Reconciliation and Communication With Other Providers Discharge Plan Discharge Items Patient Disposition: Transfer Custodial Fac Reason For Visit: ACUTE KIDNEY INJURY Discharge Diagnosis: Acute kidney injury-improved, chronic systolic heart failure, decubitus ulcers, malnutrition Condition: Fair Discharge Goals: Decrease discomfort and Improve function Activity: Resume your previous activity Non-emergency contact: Primary Care Provider Call non-emergency contact if: you have any medication questions Follow-up/Referrals: Sai Miller [Primary Care Provider] - Diet Texture: Pureed (blended smooth) Diet Comment: Gets feeding through the PEG tube Addtl Provider Instructions: Decubitus management as per the wound care instruction Prescriptions: New doxycycline hyclate 100 mg Capsule 100 mg PO BID 3 Days Qty: 6 RF: 0 fentanyl 25 mcg/hr Patch 72 Hour 25 mcg Transdermal Q3D Qty: 5 RF: 0 oxycodone 5 mg Tablet 5 mg PO Q6 Qty: 20 RF: 0 tramadol 50 mg Tablet 50 mg PO Q6H PRN (Reason: pain) Qty: 20 RF: 0 Peptamen 1.5 0.068 gram- 1.5 kcal/mL Liquid 1,000 ml PEG UD 10 Days Qty: 10 RF: 0 lansoprazole [Prevacid SoluTab] 30 mg tablet,disintegrat, delay rel 30 mg PO DAILY Qty: 30 RF: 0 Continued thiamine HCl (vitamin B1) 100 mg Tablet 100 mg PO DAILY RF: 0 docusate sodium 50 mg/15 mL Syrup 10 ml PO DAILY RF: 0 melatonin 3 mg Tablet 3 mg PO HS RF: 0 tramadol 50 mg Tablet 50 mg PO Q6H PRN (Reason: Pain) RF: 0 levothyroxine 25 mcg Tablet 1 tab PO DAILY RF: 0 magnesium hydroxide [Milk of Magnesia] 400 mg/5 mL Suspension 30 ml PO DAILY PRN (Reason: Constipation) RF: 0 baclofen 10 mg Tablet 5 mg PO TID RF: 0 bisacodyl 10 mg Suppository 10 mg GA DAILY PRN (Reason: Constipation) RF: 0 ferrous sulfate 325 mg (65 mg iron) Tablet 325 mg PO DAILY RF: 0 divalproex 125 mg Tablet,Delayed Release (Dr/Ec) 4 cap PO BID RF: 0 sodium phosphates [Enema] 19-7 gram/118 mL Enema 197 ml GA DAILY PRN (Reason: Constipation) RF: 0 vitamin B complex Tablet 1 tab PO DAILY RF: 0 folic acid 1 mg Tablet 1 mg PO DAILY RF: 0 ergocalciferol (vitamin D2) 50,000 unit Capsule 50,000 unit PO 2XWK RF: 0 fentanyl 25 mcg/hr Patch 72 Hour 1 patch TRANSDERMAL Q72H RF: 0 oxycodone 5 mg Tablet 5 mg PO Q6H PRN (Reason: Pain) RF: 0 metoprolol tartrate 25 mg Tablet 25 mg PO BID RF: 0 cholestyramine-aspartame [Cholestyramine Light] 4 gram Powder 4 g PO BID RF: 0 Lactobacillus acidophilus [Probiotic] 10 billion cell Capsule 1 cap PO BID RF: 0 apixaban [Eliquis] 5 mg Tablet 5 mg PO BID RF: 0 acetaminophen 325 mg Tablet 650 mg PO Q6H MDD 3gm/24hr PRN (Reason: temp>101) RF: 0 acetaminophen [Tylenol] 325 mg Tablet 650 mg PO Q6H MDD 3g/24hr PRN (Reason: mild pain 1-3) RF: 0 Probiotic (S.boulardii) 250 mg Capsule 250 mg PO BID RF: 0 Stress Formula with Zinc Tablet 1 tab PO DAILY RF: 0 docusate sodium [Docu] 50 mg/5 mL Liquid 100 mg PO BID RF: 0 Discontinued pantoprazole 40 mg Tablet,Delayed Release (Dr/Ec) 40 mg PO DAILY RF: 0 ertapenem [Invanz] 1 gram Recon Soln 1 g IV DAILY RF: 0 vancomycin in 0.9 % sodium chl 500 mg/100 mL Piggyback IV BID RF: 0 baclofen 10 mg Tablet 5 mg PO TID RF: 0 divalproex 125 mg Capsule, Delayed Rel Sprinkle 500 mg PO BID RF: 0 thiamine HCl (vitamin B1) 100 mg Tablet 100 mg PO DAILY RF: 0 tramadol 50 mg Tablet 50 mg PO Q6H PRN (Reason: mod pain 4-10 on 1-10 scale) RF: 0 pantoprazole 40 mg Tablet,Delayed Release (Dr/Ec) 40 mg PO DAILY RF: 0 melatonin 3 mg Tablet 3 mg PO HS RF: 0 levothyroxine 25 mcg Tablet 25 mcg PO DAILY RF: 0 ferrous sulfate 325 mg (65 mg iron) Tablet 325 mg PO BID RF: 0 folic acid 1 mg Tablet 1 mg PO DAILY RF: 0 fentanyl 25 mcg/hr Patch 72 Hour 1 patch TRANSDERMAL Q72H RF: 0 oxycodone 5 mg Tablet 5 mg PO Q6 RF: 0 metoprolol tartrate 25 mg Tablet 25 mg PO BID RF: 0 Eliquis 5 mg Tablet 5 mg PO BID RF: 0 cefepime 1 gram Recon Soln 1 g IV Q8 RF: 0 cholestyramine (with sugar) 4 gram Powder 4 g PO BID RF: 0 Stand-Alone Forms: [facility] Discharge Orders: Discharge Order (Routine); Ordered 10/11/18 Ordered By: Areli Reyes Skilled Items Patient informed of condition?: Yes DNR: No Discharge Level of Care: Skilled Communicable Disease: No Discharge Prognosis: Stable Admission Data Admit Date/Time: 10/07/18 04:29 Attending Provider: Areli Reyes Admit Provider: Bhupendra Arango Primary Care Provider: Sai Miller Other Providers: Hema Padron ; Bhupendra Arango ; Pato Freed Service: Medical Other Interventions: Discharge Summary Assessment (RN) Last Done: 10/11/18 12:45 DC Date/Time DO NOT enter until pt leaves facility: 10/11/18 15:28
== END 2018-10-11 15:28 | DRG 682 ==
LOC: ED 01:24 → MERGE 04:29 → SUATTDRO 04:29 → 2S 04:29 → 4E 10-09 17:59

== ENCOUNTER 2018-10-25 04:34 | Inpatient (IN) ==
[2018-10-25] MEDS ORDERED: PIPERACILLIN/TAZOBACTAM 4.5 GM/120 ML BAG IV ONE ×2 (05:03→06:55)
[2018-10-25] MEDS ORDERED: PIPERACILL/TAZOBAC CONSULT ACTIVE PRN ×3 (05:03→08:44)
[2018-10-25] MEDS ORDERED: SODIUM CHLORIDE 0.9% 500 ML IV SCH (05:15)
[2018-10-25] MEDS: SODIUM CHLORIDE 0.9% 500 ML IV SCH ×2 (05:43→09:41)
[2018-10-25 05:46] LABS: Hematocrit (blood only) 28.4 % (42-52); Hemoglobin 9.4 g/dL (14.0-18.0); Mean Corpuscular Hgb Conc 33.1 g/dL (32-36); Mean Corpuscular Volume 82.1 fL (80-100); Mean Platelet Volume 9.6 fL (7.4-10.4); Platelet Count 343 K/uL (130-400); RDW Coefficient of Variation 19.5 % (11.5-14.5); RDW Standard Deviation 57.7 fL (36.4-46.3); Red Blood Count 3.46 M/uL (4.7-6.1)
[2018-10-25 06:04] LABS: Alanine Aminotransferase 21 U/L (12-78); Aspartate Aminotransferase 23 U/L (15-37); BUN Creatinine Ratio 36.1 (10-20); Blood Urea Nitrogen 70 mg/dl (7-18); Calcium 8.2 mg/dl (8.5-10.1); Carbon Dioxide 25 mmol/L (21-32); Chloride 99 mmol/L (98-107); Creatinine Clr Calc Pharmacy 29.2 ml/min; Est GFR (African American) 39.2; Est GFR (Non-African American) 33.8; Glucose 145 mg/dl (70-99); Potassium 4.7 mmol/L (3.5-5.1); Sodium 133 mmol/L (136-145)
[2018-10-25 06:09] LABS: Albumin Globulin Ratio 0.3 (0.9-2); Alkaline Phosphatase 107 U/L (45-117); Bilirubin,Total 0.3 mg/dl (0.2-1); Globulin 5.8 gm/dl (2.5-4.0); Total Protein 7.8 gm/dl (6.4-8.2); Troponin I < 0.015 ng/ml (0-0.045)
[2018-10-25 06:24] LABS: Influenza A virus by PCR Neg for Influ A (Neg); Influenza B virus by PCR Neg for Influ B (Neg)
[2018-10-25 06:27] LABS: Basophils # (auto) 0.01 K/uL (0-0.2); Basophils % (auto) 0.1 %; Immature Granulocytes # (auto) 0.07 K/uL (0.00-0.02); Immature Granulocytes % (auto) 0.4 %; Lymphocytes # (auto) 1.49 K/uL (1.2-3.4); Lymphocytes % (auto) 7.6 %; Monocytes # (auto) 0.99 K/uL (0.11-0.59); Monocytes % (auto) 5.1 %; Neutrophils # (auto) 17.04 K/uL (1.4-6.5); Neutrophils % (auto) 86.8 %
[2018-10-25 06:33] LABS: RBC Morphology Unremarkable
[2018-10-25 06:54] LABS: Appearance Urine Turbid (Clear); Bilirubin Urine Negative (Negative); Blood Urine 2+ (Negative); Color Urine Yellow; Glucose Urine UA Negative (Negative); Ketones Urine Negative (Negative); Leukocyte Esterase Urine 3+ (Negative); Nitrite Urine Negative (Negative); Specific Gravity Urine <= 1.005 (1.000-1.030); Urobilinogen Urine Negative (Negative); pH Urine >= 9.0 (4.5-7.5)
--- NOTE | 2018-10-25 06:57 | XRay Report ---
XR chest 1V portable CLINICAL HISTORY: fever dyspnea COMPARISON STUDY: 10/07/2018 FINDINGS: PICC catheter remains this. Vena cava. Mild stable cardiomegaly. Lungs are clear. Mild Base line emphysematous changes present. IMPRESSION: No acute process. Mild emphysematous change. The lungs are now considered clear. The above report was generated using voice recognition software. It may contain grammatical, syntax or spelling errors. Electronically signed by: Jamie Nazario M.D. 10/25/2018 6:56 AM
[2018-10-25 06:58] LABS: Protein Urine 2+ (Negative)
[2018-10-25 07:14] LABS: Bacteria Urine 4+ (Negative); RBC Urine >30 /hpf (0-4); Triple Phosphate Crystal Urine Present (None Prsent)
[2018-10-25] MEDS: SODIUM CHLORIDE 0.9% 1000ML 1,000 ML IV SCH ×3 (07:15→19:44)
[2018-10-25 07:16] LABS: WBC Urine >30 /hpf (0-5)
--- NOTE | 2018-10-25 07:52 | Emergency Department Note ---
Entered by Sushila Varma acting as a scribe for Joanna Richard MD History of Present Illness General Chief complaint: Urinary Symptoms Source: patient Limitations: other (nonverbal) History of Present Illness Onset (ago): day(s) (this evening) Location: abdomen Pain Consistency: + other (episode) Maximum Pain Intensity: 5 Quality: + other (urinary symptoms) Associated symptoms: + fever/chills (fever) and + other (depressed level of consciousness, multiple decubitis ulcers, less verbal than normal) The patient is a 73 year old male who presents to the Emergency Room with complaints of an episode of urinary symptoms starting this evening. Per nursing staff, the patient has a Childs that normally puts out 600 mls of urine at night, but his tonight only put out 100 mls. They state that he has also had a fever, depressed level of consciousness, multiple decubitus ulcers, and has not been speaking as much as usual. They note that he was recently admitted for an ZARA. HPI and ROS are limited secondary to patient being nonverbal. Home Medications Home Medications Medication Instructions Recorded Confirmed Type Cholestyramine Light 4 g PO BID 09/16/18 10/25/18 History Eliquis 5 mg PO BID 09/16/18 10/25/18 History Enema 197 ml PA DAILY PRN 09/16/18 10/25/18 History baclofen 5 mg PO TID 09/16/18 10/25/18 History bisacodyl 10 mg PA DAILY PRN 09/16/18 10/25/18 History divalproex 4 cap PO BID 09/16/18 10/25/18 History docusate sodium 10 ml PO DAILY 09/16/18 10/25/18 History ergocalciferol (vitamin D2) 50,000 unit PO 2XWK 09/16/18 10/25/18 History ferrous sulfate 325 mg PO DAILY 09/16/18 10/25/18 History folic acid 1 mg PO DAILY 09/16/18 10/25/18 History levothyroxine 1 tab PO DAILY 09/16/18 10/25/18 History magnesium hydroxide [Milk of 30 ml PO DAILY PRN 09/16/18 10/25/18 History Magnesia] melatonin 3 mg PO HS 09/16/18 10/25/18 History metoprolol tartrate 25 mg PO BID 09/16/18 10/25/18 History thiamine HCl (vitamin B1) 100 mg PO DAILY 09/16/18 10/25/18 History tramadol 50 mg PO Q6H PRN 09/16/18 10/25/18 History vitamin B complex 1 tab PO DAILY 09/16/18 10/25/18 History Probiotic (S.boulardii) 250 mg PO BID 10/07/18 10/25/18 History Stress Formula with Zinc 1 tab PO DAILY 10/07/18 10/25/18 History acetaminophen 650 mg PO Q6H PRN MDD 3gm/24hr 10/07/18 10/25/18 History acetaminophen [Tylenol] 650 mg PO Q6H PRN MDD 3g/24hr 10/07/18 10/25/18 History docusate sodium [Docu] 100 mg PO BID 10/07/18 10/25/18 History fentanyl 25 mcg TRANSDERMAL Q3D #5 ea 10/11/18 10/25/18 Rx lansoprazole [Prevacid SoluTab] 30 mg PO DAILY #30 tab 10/11/18 10/25/18 Rx oxycodone 5 mg PO Q6 #20 tab 10/11/18 10/25/18 Rx Allergies Allergy/AdvReac Type Severity Reaction Status Date / Time iodine Allergy Unknown Unknown Verified 10/25/18 05:14 onion AdvReac Intermediate vomitting Verified 10/25/18 05:14 Past Med/Surg History Medical History Coronary artery disease (Chronic) s/p DE 2007 Chronic systolic CHF (congestive heart failure) (Chronic) GERD (gastroesophageal reflux disease) (Chronic) Hypothyroidism (Chronic) Anxiety (Chronic) Schizoid personality disorder (Chronic) Decubitus ulcer (Chronic) multiple, chronic Osteomyelitis (Acute) right femoral head Aug 2018 treated with 6 wks vanco + ertapenem Wound infection (Acute) Pseudomonas PEG site October 2018 History of ESBL E. coli infection (Resolved) Aug 2018, + blood and urine cultures Urethral trauma (Acute) Aug 2018. Childs cath. Severe protein-calorie malnutrition (Chronic) Dyslipidemia (Chronic) Chronic pain (Chronic) History of DVT (deep vein thrombosis) (Chronic) LL2017 Anxiety (Chronic) HTN (hypertension) (Chronic) Hypothyroidism (Chronic) GERD (gastroesophageal reflux disease) (Chronic) Anemia (Chronic) Schizoid personality disorder (Chronic) Myocardial infarction (Chronic) Dyslipidemia (Chronic) History of electroconvulsive therapy (Chronic) History of Clostridium difficile colitis (Chronic) Bacteremia C. difficile colitis DVT (deep venous thrombosis) Depression Esophagitis Childs catheter in place Iron deficiency Osteomyelitis Pressure ulcer of ankle, right, unstageable Pressure ulcer of sacral region, stage 4 Surgical History History of appendectomy (Chronic) Status post insertion of inferior vena caval filter (Chronic) Status post insertion of percutaneous endoscopic gastrostomy (PEG) tube (Chronic) Sep 2018 S/P PICC central line placement Family History Other Family history non-contributory Social History Preferred Language: Irish Communication Ability: Impaired Communication Ability Comment: altered mentation 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 and A total of 10 systems reviewed and were otherwise negative Physical Exam Vital Signs Vital Signs - 24 hr 10/27/18 07:40 10/27/18 09:00 10/27/18 15:30 Temperature 36.8 C Temperature Source Oral Pulse Rate [Left Apical] 83 Pulse Rate [Right Finger] Respiratory Rate 16 Respiratory Effort / Characteristics Non-Labored Non-Labored Spontaneous Respiratory Depth Normal Normal Respiratory Pattern Blood Pressure [Right Arm] 121/64 Blood Pressure Mean [Right Arm] 83 Blood Pressure Position [Right Arm] Lying Pulse Oximetry 96 Oxygen Delivery Method Room Air Room Air 10/27/18 15:49 10/27/18 23:00 10/28/18 00:10 Temperature 36.9 C 36.9 C Temperature Source Oral Oral Pulse Rate [Left Apical] 79 Pulse Rate [Right Finger] 83 Respiratory Rate 16 17 Respiratory Effort / Characteristics Non-Labored Spontaneous Respiratory Depth Normal Respiratory Pattern Regular Blood Pressure [Right Arm] 141/71 H 144/72 H Blood Pressure Mean [Right Arm] 94 96 Blood Pressure Position [Right Arm] Pulse Oximetry 96 93 Oxygen Delivery Method Room Air Room Air Vital signs reviewed. General: Chronically ill-appearing, in no significant distress. Strong smell of old urine. HEENT: No scleral icterus, PERRLA, neck supple. Atraumatic. Cardiovascular: Regular rate and rhythm, no extra sounds. Pulmonary: Clear to auscultation bilaterally, normal work of breathing. Abdomen: Soft, nontender, nondistended, positive bowel sounds. Childs catheter in place. Musculoskeletal: Atraumatic, no peripheral edema. PICC line in left upper extremity. Neurologic: minimally responsive, awake but unable to follow commands. He moans to physical stimuli. Skin: Warm, dry, no rash. Multiple dressings to the buttocks. Course 0502: Past medical records reviewed. The patient was evaluated in room A11A, and a complete history and physical examination were performed. 0707: I reviewed the patient's case with Dr. Haven Miller. He will evaluate the patient for further management. 0719: I reevaluated the patient and updated him on his test results at this time. I discussed the treatment plan with him. He verbally agrees and understands. Consultations Consultation #1: I reviewed the patient's case with Dr. Haven Miller. He will evaluate the patient for further management. Time: 07:07 Administered Medications Apixaban (Eliquis) 5 mg PO BID DIOR Stop: 11/24/18 10:17 Last Admin: 10/27/18 20:21 Dose: 5 mg Documented by: [id number] Admin: 10/27/18 08:19 Dose: 5 mg Documented by: [id number] Admin: 10/26/18 21:08 Dose: 5 mg Documented by: [id number] Admin: 10/26/18 08:38 Dose: 5 mg Documented by: [id number] Admin: 10/25/18 20:12 Dose: 5 mg Documented by: [id number] Admin: 10/25/18 12:19 Dose: 5 mg Documented by: [id number] Baclofen (Lioresal) 5 mg PO TID DIOR Stop: 11/24/18 13:59 Last Admin: 10/27/18 20:22 Dose: 5 mg Documented by: [id number] Admin: 10/27/18 14:11 Dose: 5 mg Documented by: [id number] Admin: 10/27/18 08:18 Dose: 5 mg Documented by: [id number] Admin: 10/26/18 21:08 Dose: 5 mg Documented by: [id number] Admin: 10/26/18 14:37 Dose: 5 mg Documented by: [id number] Admin: 10/26/18 08:38 Dose: 5 mg Documented by: [id number] Admin: 10/25/18 20:13 Dose: 5 mg Documented by: [id number] Admin: 10/25/18 12:20 Dose: 5 mg Documented by: [id number] Cholestyramine Resin (Questran) 4 gm PO BID@1000,2200 DIOR Stop: 11/24/18 21:59 Last Admin: 10/27/18 22:04 Dose: 4 gm Documented by: [id number] Admin: 10/27/18 10:43 Dose: 4 gm Documented by: [id number] Admin: 10/26/18 22:19 Dose: 4 gm Documented by: [id number] Admin: 10/26/18 10:25 Dose: 4 gm Documented by: [id number] Admin: 10/25/18 21:21 Dose: 4 gm Documented by: [id number] Divalproex Sodium (Depakote Sprinkle) 500 mg PO BID DIOR Stop: 11/24/18 10:59 Last Admin: 10/27/18 20:19 Dose: 500 mg Documented by: [id number] Admin: 10/27/18 08:18 Dose: 500 mg Documented by: [id number] Admin: 10/26/18 21:04 Dose: 500 mg Documented by: [id number] Admin: 10/26/18 08:37 Dose: 500 mg Documented by: [id number] Admin: 10/25/18 20:14 Dose: 500 mg Documented by: [id number] Admin: 10/25/18 12:20 Dose: 500 mg Documented by: [id number] Docusate Sodium (Colace) 100 mg PO DAILY DIOR Stop: 11/24/18 10:59 Last Admin: 10/27/18 08:19 Dose: 100 mg Documented by: [id number] Admin: 10/26/18 08:38 Dose: 100 mg Documented by: [id number] Admin: 10/25/18 12:22 Dose: 100 mg Documented by: [id number] Enteral Nutritional Formula (Peptamen 1.5) 1,000 ml PEG DAILY@1500 DIOR; Protocol Stop: 11/24/18 14:59 Last Admin: 10/27/18 15:30 Dose: 1,000 ml Documented by: [id number] Admin: 10/26/18 16:08 Dose: 1,000 ml Documented by: [id number] Admin: 10/25/18 17:06 Dose: 1,000 ml Documented by: [id number] Ergocalciferol (Vitamin D2) 50,000 units PO WeSa@0900 DIOR Stop: 11/25/18 08:59 Last Admin: 10/26/18 08:36 Dose: 50,000 units Documented by: [id number] Fentanyl (Duragesic) 25 mcg TD Q3D DIOR Stop: 11/08/18 11:59 Last Admin: 10/25/18 12:51 Dose: 25 mcg Documented by: [id number] Ferrous Sulfate (Feosol) 325 mg PO DAILY DIOR Stop: 11/24/18 11:14 Last Admin: 10/27/18 08:20 Dose: 325 mg Documented by: [id number] Admin: 10/26/18 08:36 Dose: 325 mg Documented by: [id number] Admin: 10/25/18 12:22 Dose: 325 mg Documented by: [id number] Folic Acid (Folvite) 1 mg PO DAILY DIOR Stop: 11/24/18 10:59 Last Admin: 10/27/18 08:19 Dose: 1 mg Documented by: [id number] Admin: 10/26/18 08:38 Dose: 1 mg Documented by: [id number] Admin: 10/25/18 12:23 Dose: 1 mg Documented by: [id number] Heparin Sodium (Beef Lung) (Heparin Sod 10 Unit/Ml Flush) 5 ml FLUSH PRN PRN PRN Reason: Flush Stop: 11/25/18 02:36 Last Admin: 10/28/18 05:44 Dose: 5 ml Documented by: [id number] Admin: 10/26/18 05:52 Dose: 5 ml Documented by: [id number] Sodium Chloride (Nss 1000ml) 1,000 mls @ 125 mls/hr IV .Q8H [facility] Stop: 11/24/18 06:59 Last Admin: 10/28/18 03:35 Dose: 125 mls/hr Documented by: [id number] Infusion: 10/28/18 03:35 Dose: 125 mls/hr Documented by: [id number] Admin: 10/27/18 20:17 Dose: 125 mls/hr Documented by: [id number] Infusion: 10/27/18 19:59 Dose: 125 mls/hr Documented by: [id number] Admin: 10/27/18 11:59 Dose: 125 mls/hr Documented by: [id number] Infusion: 10/27/18 11:49 Dose: 125 mls/hr Documented by: [id number] Infusion: 10/27/18 05:57 Dose: 125 mls/hr Documented by: [id number] Admin: 10/27/18 03:49 Dose: 125 mls/hr Documented by: [id number] Infusion: 10/27/18 03:49 Dose: 125 mls/hr Documented by: [id number] Admin: 10/26/18 20:59 Dose: 125 mls/hr Documented by: [id number] Infusion: 10/26/18 20:20 Dose: 125 mls/hr Documented by: [id number] Admin: 10/26/18 12:20 Dose: 125 mls/hr Documented by: [id number] Infusion: 10/26/18 11:35 Dose: 125 mls/hr Documented by: [id number] Admin: 10/26/18 03:35 Dose: 125 mls/hr Documented by: [id number] Infusion: 10/26/18 03:35 Dose: 125 mls/hr Documented by: [id number] Admin: 10/25/18 19:44 Dose: Not Given Documented by: [id number] Admin: 10/25/18 19:43 Dose: 125 mls/hr Documented by: [id number] Infusion: 10/25/18 10:02 Dose: 0 mls/hr Documented by: [id number] Admin: 10/25/18 07:15 Dose: 200 mls/hr Documented by: [id number] Ertapenem 1,000 mg/ Sodium (Chloride) 60 mls @ 100 mls/hr IV Q24H DIOR Stop: 11/04/18 12:29 Last Infusion: 10/27/18 13:00 Dose: 0 mls/hr Documented by: [id number] Admin: 10/27/18 11:59 Dose: 60 mls/hr Documented by: [id number] Infusion: 10/26/18 13:25 Dose: 0 mls/hr Documented by: [id number] Admin: 10/26/18 12:20 Dose: 60 mls/hr Documented by: [id number] Infusion: 10/25/18 15:40 Dose: 0 mls/hr Documented by: [id number] Admin: 10/25/18 14:56 Dose: 100 mls/hr Documented by: [id number] Lansoprazole (Prevacid) 30 mg PO DAILY DIOR Stop: 11/24/18 10:59 Last Admin: 10/27/18 08:20 Dose: 30 mg Documented by: [id number] Admin: 10/26/18 08:37 Dose: 30 mg Documented by: [id number] Admin: 10/25/18 12:23 Dose: 30 mg Documented by: [id number] Levothyroxine Sodium (Synthroid) 25 mcg PO DAILYBB DIOR Stop: 11/24/18 10:59 Last Admin: 10/28/18 05:23 Dose: 25 mcg Documented by: [id number] Admin: 10/27/18 05:33 Dose: 25 mcg Documented by: [id number] Admin: 10/26/18 05:52 Dose: 25 mcg Documented by: [id number] Admin: 10/25/18 12:23 Dose: 25 mcg Documented by: [id number] Metoprolol Tartrate (Lopressor) 25 mg PO BID DIOR Stop: 11/24/18 10:59 Last Admin: 10/27/18 20:22 Dose: 25 mg Documented by: [id number] Admin: 10/27/18 08:18 Dose: 25 mg Documented by: [id number] Admin: 10/26/18 21:09 Dose: 25 mg Documented by: [id number] Admin: 10/26/18 08:37 Dose: 25 mg Documented by: [id number] Admin: 10/25/18 20:12 Dose: 25 mg Documented by: [id number] Admin: 10/25/18 14:57 Dose: Not Given Documented by: [id number] Misfitoaneous (Fentanyl Patch Check Placement) 1 ea N/A QS DIOR Stop: 11/24/18 15:59 Last Admin: 10/27/18 23:59 Dose: 1 ea Documented by: [id number] Admin: 10/27/18 15:32 Dose: 1 ea Documented by: [id number] Admin: 10/27/18 08:18 Dose: 1 ea Documented by: [id number] Admin: 10/27/18 00:03 Dose: 1 ea Documented by: [id number] Admin: 10/26/18 16:25 Dose: 1 ea Documented by: [id number] Admin: 10/26/18 08:35 Dose: 1 ea Documented by: [id number] Admin: 10/26/18 03:01 Dose: 1 ea Documented by: [id number] Admin: 10/25/18 16:31 Dose: 1 ea Documented by: [id number] Miscellaneous (Fentanyl Patch Remove & Waste) 1 ea N/A Q3D DIOR Stop: 11/24/18 11:58 Last Admin: 10/25/18 12:59 Dose: 1 ea Documented by: [id number] Cosigned by: [id number] Miscellaneous (Order Awaiting Action) 1 ea N/A QS DIOR Stop: 11/24/18 15:59 Last Admin: 10/27/18 23:59 Dose: Not Given Documented by: [id number] Admin: 10/27/18 15:32 Dose: Not Given Documented by: [id number] Admin: 10/27/18 08:21 Dose: Not Given Documented by: [id number] Admin: 10/27/18 00:03 Dose: Not Given Documented by: [id number] Admin: 10/26/18 16:25 Dose: Not Given Documented by: [id number] Admin: 10/26/18 08:36 Dose: Not Given Documented by: [id number] Admin: 10/26/18 03:01 Dose: Not Given Documented by: [id number] Admin: 10/25/18 16:31 Dose: Not Given Documented by: [id number] Multivitamins/Minerals (Cerovite Liquid) 15 ml PO DAILY DIOR Stop: 11/24/18 11:14 Last Admin: 10/27/18 08:19 Dose: 15 ml Documented by: [id number] Admin: 10/26/18 08:36 Dose: 15 ml Documented by: [id number] Admin: 10/25/18 12:19 Dose: 15 ml Documented by: [id number] Nutritional Formula (Prosource No Carb) 30 ml PEG DAILY@1500 DIOR Stop: 11/24/18 14:59 Last Admin: 10/27/18 15:31 Dose: 30 ml Documented by: [id number] Admin: 10/26/18 16:08 Dose: 30 ml Documented by: [id number] Admin: 10/25/18 16:31 Dose: 30 ml Documented by: [id number] Oxycodone HCl (Roxicodone Immediate Rel) 5 mg PO Q6 DIOR Stop: 11/08/18 11:59 Last Admin: 10/28/18 05:23 Dose: 5 mg Documented by: [id number] Admin: 10/27/18 23:59 Dose: 5 mg Documented by: [id number] Admin: 10/27/18 17:47 Dose: 5 mg Documented by: [id number] Admin: 10/27/18 12:42 Dose: 5 mg Documented by: [id number] Admin: 10/27/18 05:33 Dose: 5 mg Documented by: [id number] Admin: 10/27/18 00:02 Dose: 5 mg Documented by: [id number] Admin: 10/26/18 17:56 Dose: 5 mg Documented by: [id number] Admin: 10/26/18 12:19 Dose: 5 mg Documented by: [id number] Admin: 10/26/18 05:51 Dose: 5 mg Documented by: [id number] Admin: 10/26/18 00:00 Dose: 5 mg Documented by: [id number] Admin: 10/25/18 18:25 Dose: 5 mg Documented by: [id number] Admin: 10/25/18 12:51 Dose: 5 mg Documented by: [id number] Thiamine HCl (Vitamin B-1) 100 mg PO DAILY [facility] Stop: 11/24/18 11:14 Last Admin: 10/27/18 08:19 Dose: 100 mg Documented by: [id number] Admin: 10/26/18 08:36 Dose: 100 mg Documented by: [id number] Admin: 10/25/18 12:24 Dose: 100 mg Documented by: [id number] Tramadol HCl (Ultram) 50 mg PO Q6H PRN PRN Reason: Pain Stop: 11/24/18 10:17 Last Admin: 10/25/18 20:10 Dose: 50 mg Documented by: [id number] Vitamin B Complex (Vitamin B Complex) 1 tab PO DAILY [facility] Stop: 11/24/18 11:14 Last Admin: 10/27/18 08:19 Dose: 1 tab Documented by: [id number] Admin: 10/26/18 08:38 Dose: 1 tab Documented by: [id number] Admin: 10/25/18 12:23 Dose: 1 tab Documented by: [id number] Discontinued Medications Piperacillin Sod/Tazobactam Sod (Zosyn) 4.5 gm in 120 mls @ 240 mls/hr IV NOW ONE Stop: 10/25/18 05:32 Last Infusion: 10/25/18 06:43 Dose: 0 mls/hr Documented by: [id number] Admin: 10/25/18 06:14 Dose: 240 mls/hr Documented by: [id number] Sodium Chloride (Nss) 500 mls @ 999 mls/hr IV .Q31M DIOR Stop: 10/25/18 05:45 Last Infusion: 10/25/18 06:15 Dose: 0 mls/hr Documented by: [id number] Admin: 10/25/18 05:43 Dose: 999 mls/hr Documented by: [id number] Sodium Chloride (Nss) 500 mls @ 125 mls/hr IV .Q4H DIOR Stop: 11/24/18 05:14 Last Admin: 10/25/18 09:41 Dose: Not Given Documented by: [id number] Infusion: 10/25/18 07:15 Dose: 0 mls/hr Documented by: [id number] Admin: 10/25/18 05:43 Dose: 125 mls/hr Documented by: [id number] Piperacillin Sod/Tazobactam Sod (Zosyn) 4.5 gm in 120 mls @ 240 mls/hr IV NOW ONE Stop: 10/25/18 07:24 Last Admin: 10/25/18 06:57 Dose: Not Given Documented by: [id number] Miscellaneous Information (Consult) 1 ea N/A UD PRN PRN Reason: Consult Stop: 11/24/18 05:02 Last Admin: 10/25/18 05:42 Dose: 1 ea Documented by: [id number] Medical Decision Making Differential Diagnosis Differential diagnosis: Etiologies such as viral syndrome, otitis, pharyngitis, pneumonia, influenza, meningitis, urinary tract infection, septic arthritis, soft tissue infectious process, intra-abdominal process, sepsis, bacteremia, as well as others were entertained. Medical Records Attestation: I reviewed the patient's medical records. Home Medications Current Medication List: was personally reviewed by me Laboratory Data Attestation: I reviewed the patient's lab results. Result diagrams: 10/28/18 05:43 10/28/18 05:43 Lab Results 10/25/18 10/25/18 10/25/18 Range/Units 05:15 05:27 05:27 WBC 19.60 H (4.8-10.8) K/uL RBC 3.46 L (4.7-6.1) M/uL Hgb 9.4 L (14.0-18.0) g/dL Hct 28.4 L (42-52) % MCV 82.1 (80-100) fL MCH 27.2 (25-34) pg MCHC 33.1 (32-36) g/dL RDW Std Deviation 57.7 H (36.4-46.3) fL RDW Coeff of Lucila 19.5 H (11.5-14.5) % Plt Count 343 (130-400) K/uL MPV 9.6 (7.4-10.4) fL Immature Gran % (Auto) 0.4 % Neut % (Auto) 86.8 % Lymph % (Auto) 7.6 % [place] % (Auto) 5.1 % Eos % (Auto) 0.0 % Baso % (Auto) 0.1 % Immature Gran # (Auto) 0.07 H (0.00-0.02) K/uL Neut # (Auto) 17.04 H (1.4-6.5) K/uL Lymph # (Auto) 1.49 (1.2-3.4) K/uL [place] # (Auto) 0.99 H (0.11-0.59) K/uL Eos # (Auto) 0.00 (0-0.5) K/uL Baso # (Auto) 0.01 (0-0.2) K/uL RBC Morphology Unremarkable Sodium 133 L (136-145) mmol/L Potassium 4.7 (3.5-5.1) mmol/L Chloride 99 (98-107) mmol/L Carbon Dioxide 25 (21-32) mmol/L Anion Gap 9.0 (3-11) BUN 70 H (7-18) mg/dl Creatinine 1.93 H (0.6-1.4) mg/dl Est Cr Clr Drug Dosing 29.2 ml/min Est GFR ( Amer) 39.2 Est GFR (Non-Af Amer) 33.8 BUN/Creatinine Ratio 36.1 H (10-20) Glucose 145 H (70-99) mg/dl POC Glucose (70-99) Calcium 8.2 L (8.5-10.1) mg/dl Phosphorus (2.5-4.9) mg/dl Magnesium (1.8-2.4) mg/dl Total Bilirubin 0.3 (0.2-1) mg/dl AST 23 (15-37) U/L ALT 21 (12-78) U/L Alkaline Phosphatase 107 (45-117) U/L Troponin I < 0.015 (0-0.045) ng/ml Total Protein 7.8 (6.4-8.2) gm/dl Albumin 2.0 L (3.4-5.0) gm/dl Globulin 5.8 H (2.5-4.0) gm/dl Albumin/Globulin Ratio 0.3 L (0.9-2) Urine Color Urine Appearance (Clear) Urine pH (4.5-7.5) Ur Specific [place] (1.000-1.030) Urine Protein (Negative) Urine Glucose (UA) (Negative) Urine Ketones (Negative) Urine Blood (Negative) Urine Nitrite (Negative) Urine Bilirubin (Negative) Urine Urobilinogen (Negative) Ur Leukocyte Esterase (Negative) Urine RBC (0-4) /hpf Urine WBC (0-5) /hpf Ur Epithelial Cells (0-5) /lpf Triple Phos Crystals (None Prsent) Urine Bacteria (Negative) Influenza Type A (PCR) Neg for Influ A (Neg) Influenza Type B (PCR) Neg for Influ B (Neg) 10/25/18 10/26/18 10/26/18 Range/Units 06:10 00:15 05:57 WBC (4.8-10.8) K/uL RBC (4.7-6.1) M/uL Hgb (14.0-18.0) g/dL Hct (42-52) % MCV (80-100) fL MCH (25-34) pg MCHC (32-36) g/dL RDW Std Deviation (36.4-46.3) fL RDW Coeff of Lucila (11.5-14.5) % Plt Count (130-400) K/uL MPV (7.4-10.4) fL Immature Gran % (Auto) % Neut % (Auto) % Lymph % (Auto) % [place] % (Auto) % Eos % (Auto) % Baso % (Auto) % Immature Gran # (Auto) (0.00-0.02) K/uL Neut # (Auto) (1.4-6.5) K/uL Lymph # (Auto) (1.2-3.4) K/uL [place] # (Auto) (0.11-0.59) K/uL Eos # (Auto) (0-0.5) K/uL Baso # (Auto) (0-0.2) K/uL RBC Morphology Sodium (136-145) mmol/L Potassium (3.5-5.1) mmol/L Chloride (98-107) mmol/L Carbon Dioxide (21-32) mmol/L Anion Gap (3-11) BUN (7-18) mg/dl Creatinine 1.44 H D (0.6-1.4) mg/dl Est Cr Clr Drug Dosing 39.4 ml/min Est GFR ( Amer) 55.8 Est GFR (Non-Af Amer) 48.2 BUN/Creatinine Ratio (10-20) Glucose (70-99) mg/dl POC Glucose 108 H (70-99) Calcium (8.5-10.1) mg/dl Phosphorus (2.5-4.9) mg/dl Magnesium (1.8-2.4) mg/dl Total Bilirubin (0.2-1) mg/dl AST (15-37) U/L ALT (12-78) U/L Alkaline Phosphatase (45-117) U/L Troponin I (0-0.045) ng/ml Total Protein (6.4-8.2) gm/dl Albumin (3.4-5.0) gm/dl Globulin (2.5-4.0) gm/dl Albumin/Globulin Ratio (0.9-2) Urine Color Yellow Urine Appearance Turbid H (Clear) Urine pH >= 9.0 H (4.5-7.5) Ur Specific [place] <= 1.005 (1.000-1.030) Urine Protein 2+ H (Negative) Urine Glucose (UA) Negative (Negative) Urine Ketones Negative (Negative) Urine Blood 2+ H (Negative) Urine Nitrite Negative (Negative) Urine Bilirubin Negative (Negative) Urine Urobilinogen Negative (Negative) Ur Leukocyte Esterase 3+ H (Negative) Urine RBC >30 H (0-4) /hpf Urine WBC >30 H (0-5) /hpf Ur Epithelial Cells 5-10 H (0-5) /lpf Triple Phos Crystals Present H (None Prsent) Urine Bacteria 4+ H (Negative) Influenza Type A (PCR) (Neg) Influenza Type B (PCR) (Neg) 10/26/18 10/26/18 10/26/18 Range/Units 06:34 11:46 19:03 WBC (4.8-10.8) K/uL RBC (4.7-6.1) M/uL Hgb (14.0-18.0) g/dL Hct (42-52) % MCV (80-100) fL MCH (25-34) pg MCHC (32-36) g/dL RDW Std Deviation (36.4-46.3) fL RDW Coeff of Lucila (11.5-14.5) % Plt Count (130-400) K/uL MPV (7.4-10.4) fL Immature Gran % (Auto) % Neut % (Auto) % Lymph % (Auto) % [place] % (Auto) % Eos % (Auto) % Baso % (Auto) % Immature Gran # (Auto) (0.00-0.02) K/uL Neut # (Auto) (1.4-6.5) K/uL Lymph # (Auto) (1.2-3.4) K/uL [place] # (Auto) (0.11-0.59) K/uL Eos # (Auto) (0-0.5) K/uL Baso # (Auto) (0-0.2) K/uL RBC Morphology Sodium (136-145) mmol/L Potassium (3.5-5.1) mmol/L Chloride (98-107) mmol/L Carbon Dioxide (21-32) mmol/L Anion Gap (3-11) BUN (7-18) mg/dl Creatinine (0.6-1.4) mg/dl Est Cr Clr Drug Dosing ml/min Est GFR ( Amer) Est GFR (Non-Af Amer) BUN/Creatinine Ratio (10-20) Glucose (70-99) mg/dl POC Glucose 100 H 122 H 138 H (70-99) Calcium (8.5-10.1) mg/dl Phosphorus (2.5-4.9) mg/dl Magnesium (1.8-2.4) mg/dl Total Bilirubin (0.2-1) mg/dl AST (15-37) U/L ALT (12-78) U/L Alkaline Phosphatase (45-117) U/L Troponin I (0-0.045) ng/ml Total Protein (6.4-8.2) gm/dl Albumin (3.4-5.0) gm/dl Globulin (2.5-4.0) gm/dl Albumin/Globulin Ratio (0.9-2) Urine Color Urine Appearance (Clear) Urine pH (4.5-7.5) Ur Specific [place] (1.000-1.030) Urine Protein (Negative) Urine Glucose (UA) (Negative) Urine Ketones (Negative) Urine Blood (Negative) Urine Nitrite (Negative) Urine Bilirubin (Negative) Urine Urobilinogen (Negative) Ur Leukocyte Esterase (Negative) Urine RBC (0-4) /hpf Urine WBC (0-5) /hpf Ur Epithelial Cells (0-5) /lpf Triple Phos Crystals (None Prsent) Urine Bacteria (Negative) Influenza Type A (PCR) (Neg) Influenza Type B (PCR) (Neg) 10/26/18 10/27/18 10/27/18 Range/Units 23:55 05:50 06:14 WBC (4.8-10.8) K/uL RBC (4.7-6.1) M/uL Hgb (14.0-18.0) g/dL Hct (42-52) % MCV (80-100) fL MCH (25-34) pg MCHC (32-36) g/dL RDW Std Deviation (36.4-46.3) fL RDW Coeff of Lucila (11.5-14.5) % Plt Count (130-400) K/uL MPV (7.4-10.4) fL Immature Gran % (Auto) % Neut % (Auto) % Lymph % (Auto) % [place] % (Auto) % Eos % (Auto) % Baso % (Auto) % Immature Gran # (Auto) (0.00-0.02) K/uL Neut # (Auto) (1.4-6.5) K/uL Lymph # (Auto) (1.2-3.4) K/uL [place] # (Auto) (0.11-0.59) K/uL Eos # (Auto) (0-0.5) K/uL Baso # (Auto) (0-0.2) K/uL RBC Morphology Sodium 142 (136-145) mmol/L Potassium 4.0 (3.5-5.1) mmol/L Chloride 113 H (98-107) mmol/L Carbon Dioxide 24 (21-32) mmol/L Anion Gap 5.0 (3-11) BUN 49 H (7-18) mg/dl Creatinine 1.01 (0.6-1.4) mg/dl Est Cr Clr Drug Dosing 56.1 ml/min Est GFR ( Amer) 85.7 Est GFR (Non-Af Amer) 74.0 BUN/Creatinine Ratio 48.7 H (10-20) Glucose 116 H (70-99) mg/dl POC Glucose 139 H 138 H (70-99) Calcium 7.5 L (8.5-10.1) mg/dl Phosphorus 3.3 (2.5-4.9) mg/dl Magnesium 1.8 (1.8-2.4) mg/dl Total Bilirubin (0.2-1) mg/dl AST (15-37) U/L ALT (12-78) U/L Alkaline Phosphatase (45-117) U/L Troponin I (0-0.045) ng/ml Total Protein (6.4-8.2) gm/dl Albumin (3.4-5.0) gm/dl Globulin (2.5-4.0) gm/dl Albumin/Globulin Ratio (0.9-2) Urine Color Urine Appearance (Clear) Urine pH (4.5-7.5) Ur Specific [place] (1.000-1.030) Urine Protein (Negative) Urine Glucose (UA) (Negative) Urine Ketones (Negative) Urine Blood (Negative) Urine Nitrite (Negative) Urine Bilirubin (Negative) Urine Urobilinogen (Negative) Ur Leukocyte Esterase (Negative) Urine RBC (0-4) /hpf Urine WBC (0-5) /hpf Ur Epithelial Cells (0-5) /lpf Triple Phos Crystals (None Prsent) Urine Bacteria (Negative) Influenza Type A (PCR) (Neg) Influenza Type B (PCR) (Neg) 10/27/18 10/27/18 10/28/18 Range/Units 11:44 23:57 05:43 WBC 6.36 (4.8-10.8) K/uL RBC 2.44 L (4.7-6.1) M/uL Hgb 6.5 L* (14.0-18.0) g/dL Hct 20.5 L* (42-52) % MCV 84.0 (80-100) fL MCH 26.6 (25-34) pg MCHC 31.7 L (32-36) g/dL RDW Std Deviation 59.5 H (36.4-46.3) fL RDW Coeff of Lucila 19.2 H (11.5-14.5) % Plt Count 207 (130-400) K/uL MPV 9.5 (7.4-10.4) fL Immature Gran % (Auto) 0.2 % Neut % (Auto) 70.1 % Lymph % (Auto) 15.6 % [place] % (Auto) 11.8 % Eos % (Auto) 2.0 % Baso % (Auto) 0.3 % Immature Gran # (Auto) 0.01 (0.00-0.02) K/uL Neut # (Auto) 4.46 (1.4-6.5) K/uL Lymph # (Auto) 0.99 L (1.2-3.4) K/uL [place] # (Auto) 0.75 H (0.11-0.59) K/uL Eos # (Auto) 0.13 (0-0.5) K/uL Baso # (Auto) 0.02 (0-0.2) K/uL RBC Morphology Unremarkable Sodium (136-145) mmol/L Potassium (3.5-5.1) mmol/L Chloride (98-107) mmol/L Carbon Dioxide (21-32) mmol/L Anion Gap (3-11) BUN (7-18) mg/dl Creatinine (0.6-1.4) mg/dl Est Cr Clr Drug Dosing ml/min Est GFR ( Amer) Est GFR (Non-Af Amer) BUN/Creatinine Ratio (10-20) Glucose (70-99) mg/dl POC Glucose 119 H 109 H (70-99) Calcium (8.5-10.1) mg/dl Phosphorus (2.5-4.9) mg/dl Magnesium (1.8-2.4) mg/dl Total Bilirubin (0.2-1) mg/dl AST (15-37) U/L ALT (12-78) U/L Alkaline Phosphatase (45-117) U/L Troponin I (0-0.045) ng/ml Total Protein (6.4-8.2) gm/dl Albumin (3.4-5.0) gm/dl Globulin (2.5-4.0) gm/dl Albumin/Globulin Ratio (0.9-2) Urine Color Urine Appearance (Clear) Urine pH (4.5-7.5) Ur Specific [place] (1.000-1.030) Urine Protein (Negative) Urine Glucose (UA) (Negative) Urine Ketones (Negative) Urine Blood (Negative) Urine Nitrite (Negative) Urine Bilirubin (Negative) Urine Urobilinogen (Negative) Ur Leukocyte Esterase (Negative) Urine RBC (0-4) /hpf Urine WBC (0-5) /hpf Ur Epithelial Cells (0-5) /lpf Triple Phos Crystals (None Prsent) Urine Bacteria (Negative) Influenza Type A (PCR) (Neg) Influenza Type B (PCR) (Neg) 10/28/18 10/28/18 Range/Units 05:43 05:59 WBC (4.8-10.8) K/uL RBC (4.7-6.1) M/uL Hgb (14.0-18.0) g/dL Hct (42-52) % MCV (80-100) fL MCH (25-34) pg MCHC (32-36) g/dL RDW Std Deviation (36.4-46.3) fL RDW Coeff of Lucila (11.5-14.5) % Plt Count (130-400) K/uL MPV (7.4-10.4) fL Immature Gran % (Auto) % Neut % (Auto) % Lymph % (Auto) % [place] % (Auto) % Eos % (Auto) % Baso % (Auto) % Immature Gran # (Auto) (0.00-0.02) K/uL Neut # (Auto) (1.4-6.5) K/uL Lymph # (Auto) (1.2-3.4) K/uL [place] # (Auto) (0.11-0.59) K/uL Eos # (Auto) (0-0.5) K/uL Baso # (Auto) (0-0.2) K/uL RBC Morphology Sodium (136-145) mmol/L Potassium (3.5-5.1) mmol/L Chloride (98-107) mmol/L Carbon Dioxide (21-32) mmol/L Anion Gap (3-11) BUN (7-18) mg/dl Creatinine 0.81 (0.6-1.4) mg/dl Est Cr Clr Drug Dosing 73.8 ml/min Est GFR ( Amer) 102.9 Est GFR (Non-Af Amer) 88.8 BUN/Creatinine Ratio (10-20) Glucose (70-99) mg/dl POC Glucose 123 H (70-99) Calcium (8.5-10.1) mg/dl Phosphorus (2.5-4.9) mg/dl Magnesium (1.8-2.4) mg/dl Total Bilirubin (0.2-1) mg/dl AST (15-37) U/L ALT (12-78) U/L Alkaline Phosphatase (45-117) U/L Troponin I (0-0.045) ng/ml Total Protein (6.4-8.2) gm/dl Albumin (3.4-5.0) gm/dl Globulin (2.5-4.0) gm/dl Albumin/Globulin Ratio (0.9-2) Urine Color Urine Appearance (Clear) Urine pH (4.5-7.5) Ur Specific [place] (1.000-1.030) Urine Protein (Negative) Urine Glucose (UA) (Negative) Urine Ketones (Negative) Urine Blood (Negative) Urine Nitrite (Negative) Urine Bilirubin (Negative) Urine Urobilinogen (Negative) Ur Leukocyte Esterase (Negative) Urine RBC (0-4) /hpf Urine WBC (0-5) /hpf Ur Epithelial Cells (0-5) /lpf Triple Phos Crystals (None Prsent) Urine Bacteria (Negative) Influenza Type A (PCR) (Neg) Influenza Type B (PCR) (Neg) Imaging Data Radiologist's Impression: Radiology results as stated below per my review and the radiologist's interpretation: XR chest 1V portable CLINICAL HISTORY: fever dyspnea COMPARISON STUDY: 10/07/2018 FINDINGS: PICC catheter remains this. Vena cava. Mild stable cardiomegaly. Lungs are clear. Mild Baseline emphysematous changes present. IMPRESSION: No acute process. Mild emphysematous change. The lungs are now considered clear. The above report was generated using voice recognition software. It may contain grammatical, syntax or spelling errors. Electronically signed by: Jamie Nazario M.D. 10/25/2018 6:56 AM ECG Data Attestation: I personally reviewed and interpreted this ECG as follows: Indication: altered mental status Rate (beats per minute): 118 Rhythm: sinus tachycardia Findings: + other (poor quality baseline for interpretation, LAD) and + RBBB Blood Pressure Blood Pressure Findings: Normal blood pressure Blood Pressure Disposition: did not require urgent referral MDM Narrative This pt was evaluated and appeared to be in no distress. IV access was obtained and lab work was drawn. Pt was placed on the hall monitor. IVF were initiated. UA was obtained and is positive for infection. Catheter was changed. Urine sent for culture, IV zosyn was ordered after blood cultures were obtained. CXR was clear. Lab work reveals elevated WBC, creatinine was elevated. I do suspect catheter malfunction as pt was noted to be wet on exam. Pt's case was d/w the hospitalist service for further management. Impression & Plan Decreased urine output, UTI (urinary tract infection), Acute renal insufficiency, Dehydration Discharge Plan Visit Data *Final* Discharge Date/Time: 10/25/18 09:54 Chief Complaint: Urinary Symptoms ED Provider: Joanna Richard Discharge Problem: Decreased urine output, UTI (urinary tract infection), Acute renal insufficiency, Dehydration Patient Disposition: Admitted As Inpatient Discharge Instructions Interventions: ED Discharge Assessment Last Done: 10/25/18 09:54 Discharge Problem: UTI (urinary tract infection) Qualifiers: Urinary tract infection type: site unspecified Hematuria presence: without hematuria Qualified Code(s): N39.0 - Urinary tract infection, site not specified The scribe's documentation has been prepared under my direction and personally reviewed by me in its entirety. I confirm that the note above accurately reflects all work, treatment, procedures, and medical decision making performed by me.
[2018-10-25] MEDS ORDERED: PIPERACILLIN/TAZOBACTAM 4.5 GM in DEXTROSE 5% 100 ML IV STA (08:44)
--- NOTE | 2018-10-25 09:08 | History & Physical Report ---
Date of Service October 25, 2018 Assessment & Plan (1) UTI (urinary tract infection): Has history of recurrent UTI with a chronic Childs catheter History of ESBL infection with E. coli Started on intravenous Zosyn and will continue Urine and blood culture have been sent Present on Admission?: Yes (2) Acute renal insufficiency: Creatinine went up to 1.93 from normal values AK I seems to be due to dehydration with BUN of 70 and low blood pressure Will start normal saline infusion and monitor PRP Will need nephrology if renal function does not improve (3) Coronary artery disease: History of CAD Denies any acute cardiac symptoms and troponin is negative (4) Chronic systolic CHF (congestive heart failure): No evidence of fluid overload and chest x-ray and noted to have dehydration with AK I Will administer cautious amount of IV fluid for now (5) Schizoid personality disorder: No acute delirium (6) Decubitus ulcer: Multiple chronic skin ulcers dating as back past 2-3 years Several states for ulcers involving both the buttocks, foot and sacrum None of the wounds wounds seem to be infected at this time Wound care consult for appropriate dressing Repositioning every 2 hours Special bed (7) Severe protein-calorie malnutrition: Continue nutritional support orally and by the PEG tube Consult nutrition (8) History of DVT (deep vein thrombosis): Continue Eliquis (9) Hypothyroidism: Continue replacement CODE STATUS Full for now Need to discuss with the father for further action regarding CODE STATUS History of Present Illness Chief Complaint: Decreasing urine output with fever Primary Care Provider: Sameera Schroederedith He is a 73-year-old male resident of [facility] with history of seizure-like personality disorder, CAD, CHF, DVT and other problems as mentioned in medical history was sent in from [facility] this morning with complaints of low urine output overnight and also fever of 38 C. He was also noted to be more confused than before. He is a poor historian and the history obtained from ER records and records from [facility]. Notable history is that he has multiple decubiti ulcers of chronic duration and prolonged immobilization with flexor deformity of the lower extremities. In August of this year he has had treatment for osteomyelitis of the right femoral head with vancomycin and ertapenem for 6 weeks. He also has poor nutrition and has been fed through the feeding tube. He remained hemodynamically stable with blood pressure on the lower side in the emergency room and he did not have any complaints at the same time he is a very poor historian. His white counts were elevated and UA was very suggestive of infection. The Childs was changed and it was draining normally and his blood pressure was picking up with intravenous fluid. He was admitted to medical floor for continuation of care. Allergies Allergy/AdvReac Type Severity Reaction Status Date / Time iodine Allergy Unknown Unknown Verified 10/25/18 05:14 onion AdvReac Intermediate vomitting Verified 10/25/18 05:14 Home Medications Home Medications Medication Instructions Recorded Confirmed Type Cholestyramine Light 4 g PO BID 09/16/18 10/25/18 History Eliquis 5 mg PO BID 09/16/18 10/25/18 History Enema 197 ml MT DAILY PRN 09/16/18 10/25/18 History baclofen 5 mg PO TID 09/16/18 10/25/18 History bisacodyl 10 mg MT DAILY PRN 09/16/18 10/25/18 History divalproex 4 cap PO BID 09/16/18 10/25/18 History docusate sodium 10 ml PO DAILY 09/16/18 10/25/18 History ergocalciferol (vitamin D2) 50,000 unit PO 2XWK 09/16/18 10/25/18 History ferrous sulfate 325 mg PO DAILY 09/16/18 10/25/18 History folic acid 1 mg PO DAILY 09/16/18 10/25/18 History levothyroxine 1 tab PO DAILY 09/16/18 10/25/18 History magnesium hydroxide [Milk of 30 ml PO DAILY PRN 09/16/18 10/25/18 History Magnesia] melatonin 3 mg PO HS 09/16/18 10/25/18 History metoprolol tartrate 25 mg PO BID 09/16/18 10/25/18 History thiamine HCl (vitamin B1) 100 mg PO DAILY 09/16/18 10/25/18 History tramadol 50 mg PO Q6H PRN 09/16/18 10/25/18 History vitamin B complex 1 tab PO DAILY 09/16/18 10/25/18 History Probiotic (S.boulardii) 250 mg PO BID 10/07/18 10/25/18 History Stress Formula with Zinc 1 tab PO DAILY 10/07/18 10/25/18 History acetaminophen 650 mg PO Q6H PRN MDD 3gm/24hr 10/07/18 10/25/18 History acetaminophen [Tylenol] 650 mg PO Q6H PRN MDD 3g/24hr 10/07/18 10/25/18 History docusate sodium [Docu] 100 mg PO BID 10/07/18 10/25/18 History fentanyl 25 mcg TRANSDERMAL Q3D #5 ea 10/11/18 10/25/18 Rx lansoprazole [Prevacid SoluTab] 30 mg PO DAILY #30 tab 10/11/18 10/25/18 Rx oxycodone 5 mg PO Q6 #20 tab 10/11/18 10/25/18 Rx Past Med/Surg History Medical History Coronary artery disease (Chronic) s/p PR 2007 Chronic systolic CHF (congestive heart failure) (Chronic) GERD (gastroesophageal reflux disease) (Chronic) Hypothyroidism (Chronic) Anxiety (Chronic) Schizoid personality disorder (Chronic) Decubitus ulcer (Chronic) multiple, chronic Osteomyelitis (Acute) right femoral head Aug 2018 treated with 6 wks vanco + ertapenem Wound infection (Acute) Pseudomonas PEG site October 2018 History of ESBL E. coli infection (Resolved) Aug 2018, + blood and urine cultures Urethral trauma (Acute) Aug 2018. Childs cath. Severe protein-calorie malnutrition (Chronic) Dyslipidemia (Chronic) Chronic pain (Chronic) History of DVT (deep vein thrombosis) (Chronic) 2017 Anxiety (Chronic) HTN (hypertension) (Chronic) Hypothyroidism (Chronic) GERD (gastroesophageal reflux disease) (Chronic) Anemia (Chronic) Schizoid personality disorder (Chronic) Myocardial infarction (Chronic) Dyslipidemia (Chronic) History of electroconvulsive therapy (Chronic) History of Clostridium difficile colitis (Chronic) Bacteremia C. difficile colitis DVT (deep venous thrombosis) Depression Esophagitis Childs catheter in place Iron deficiency Osteomyelitis Pressure ulcer of ankle, right, unstageable Pressure ulcer of sacral region, stage 4 Surgical History History of appendectomy (Chronic) Status post insertion of inferior vena caval filter (Chronic) Status post insertion of percutaneous endoscopic gastrostomy (PEG) tube (Chronic) Sep 2018 S/P PICC central line placement Family History Other Family history non-contributory Social History Preferred Language: Faroese Beliefs That Will Affect Care: None Current Living Situation: [facility] Current Living Situation Comment: [place] Feels Safe at Home: Declines to Answer and Hesitant to Answer Smoking Status: Unknown if ever smoked Hx Alcohol Use: No Hx Substance Use: No Review of Systems All systems reviewed & are unremarkable except as noted in HPI & below He was noted to be not in any distress or in pain and he denies to have any significant symptoms during my examination Physical Exam Vital Signs (Past 24 Hours): Last Vital Signs Temp 38.0 C H 10/25/18 04:42 Pulse 102 H 10/25/18 08:30 Resp 28 H 10/25/18 08:30 BP 107/67 10/25/18 08:30 Pulse Ox 100 10/25/18 08:30 Physical Exam: Lying in bed comfortably Constitutional: WD/WN, vitals as above Eyes: PERRL, conjunctivae normal, anicteric sclerae ENMT: external ear and nose normal, oropharynx normal Neck: trachea midline, no thyromegaly Respiratory: normal respiratory effort Auscultation: + diminished lung sounds and + crackles (Minimal bibasilar crackles) Cardiovascular: Rate/Rhythm: regular rate and regular rhythm Heart Sounds: normal S1 and normal S2 Gastrointestinal (Abdomen): Inspection/Auscultation: abdomen normal to inspection and normal bowel sounds Percussion/Palpation: + abdomen tender and abdomen soft; no guarding and abdomen not rigid PEG tube is in situ Skin: Has multiple decubiti ulcers involving the buttocks sacral area and lower extremities. Please look the wound care nurses note for detailed examination and findings Neurologic: Alert and awake. Confused. Flexor deformity of the lower extremities. Bedbound Psychiatric: Orientation: alert and cooperative Affect: + depressed affect and + flat affect Results & Data Laboratory Results Short CBC 10/25/18 Range/Units 05:27 WBC 19.60 H (4.8-10.8) K/uL Hgb 9.4 L (14.0-18.0) g/dL Hct 28.4 L (42-52) % Plt Count 343 (130-400) K/uL BMP 10/25/18 05:27 Sodium 133 L Potassium 4.7 Chloride 99 Carbon Dioxide 25 BUN 70 H Creatinine 1.93 H Glucose 145 H Calcium 8.2 L Cardiac Enzymes 10/25/18 Range/Units 05:27 Troponin I < 0.015 (0-0.045) ng/ml Liver Function 10/25/18 Range/Units 05:27 Total Bilirubin 0.3 (0.2-1) mg/dl AST 23 (15-37) U/L ALT 21 (12-78) U/L Alkaline Phosphatase 107 (45-117) U/L Albumin 2.0 L (3.4-5.0) gm/dl Urine 10/25/18 Range/Units 06:10 Urine Color Yellow Urine Appearance Turbid H (Clear) Urine pH >= 9.0 H (4.5-7.5) Ur Specific [place] <= 1.005 (1.000-1.030) Urine Protein 2+ H (Negative) Urine Glucose (UA) Negative (Negative) Medications Administered Current Inpatient Medications Sodium Chloride (Nss) 500 mls @ 125 mls/hr IV .Q4H DIOR Stop: 11/24/18 05:14 Last Infusion: 10/25/18 07:15 Dose: Infused Documented by: Sodium Chloride (Nss 1000ml) 1,000 mls @ 200 mls/hr IV .Q5H DIOR Stop: 11/24/18 06:59 Last Admin: 10/25/18 07:15 Dose: 200 mls/hr Documented by: Piperacillin Sod/Tazobactam (Sod 4.5 gm/ Dextrose) 120 mls @ 30 mls/hr IV Q8H STA Stop: 10/25/18 12:43 Miscellaneous Information (Consult) 1 ea N/A UD PRN PRN Reason: Consult Stop: 11/24/18 06:54 Miscellaneous Information (Consult) 1 ea N/A UD PRN PRN Reason: Consult Stop: 11/24/18 08:43 (1) UTI (urinary tract infection) Hematuria presence: without hematuria Urinary tract infection type: site unspecified Qualified Code(s): N39.0 - Urinary tract infection, site not specified
[2018-10-25] MEDS ORDERED: SOD PHOSPHATE/SOD BIPHOSPHATE ENEMA 132 ML BTL PR PRN (10:18)
[2018-10-25] MEDS ORDERED: ACETAMINOPHEN 325 MG TAB PO PRN ×2 (10:18)
[2018-10-25] MEDS ORDERED: DOCUSATE SODIUM 100 MG PO SCH (10:18)
[2018-10-25] MEDS ORDERED: TRAMADOL HCL 50 MG TABLET PO PRN (10:18)
[2018-10-25] MEDS ORDERED: MAGNESIUM HYDROXIDE SUSP 30 ML UDC PO PRN (10:18)
[2018-10-25] MEDS ORDERED: BISACODYL 10 MG SUPP PR PRN (10:18)
[2018-10-25] MEDS ORDERED: SACCHAROMYCES BOULARDII 250 MG CAP PO SCH (11:00)
[2018-10-25] MEDS ORDERED: Nursing to Pharmacy Communication ONE ×2 (11:26)
[2018-10-25] MEDS ORDERED: ERTAPENEM CONSULT ACTIVE PRN (11:58)
[2018-10-25] MEDS: APIXABAN 5 MG TABLET PO SCH ×2 (12:19→20:12)
[2018-10-25] MEDS: MULTI VIT W/MINERALS LIQUID 15 ML UDP PO SCH (12:19)
[2018-10-25] MEDS: BACLOFEN 10 MG TAB PO SCH ×2 (12:20→20:13)
[2018-10-25] MEDS: DIVALPROEX SODIUM SPRINKLE 125 MG CAP PO SCH ×2 (12:20→20:14)
[2018-10-25] MEDS: FERROUS SULFATE 325 MG/7.4 ML UDP PO SCH (12:22)
[2018-10-25] MEDS: DOCUSATE SODIUM SYRUP 100 MG/10 ML UDC PO SCH (12:22)
[2018-10-25] MEDS: FOLIC ACID 1 MG TAB PO SCH (12:23)
[2018-10-25] MEDS: LEVOTHYROXINE SODIUM 25 MCG TABLET PO SCH (12:23)
[2018-10-25] MEDS: LANSOPRAZOLE 30 MG SOLTAB PO SCH (12:23)
[2018-10-25] MEDS: VITAMIN B COMPLEX TAB PO SCH (12:23)
[2018-10-25] MEDS: THIAMINE HCL 100 MG TAB PO SCH (12:24)
[2018-10-25] MEDS: OXYCODONE HCL IR 5 MG TAB (IMMEDIATE RELEASE) PO SCH ×2 (12:51→18:25)
[2018-10-25] MEDS: fentaNYL 25 MCG/HR TDSY TD SCH (12:51)
[2018-10-25] MEDS: ERTAPENEM SODIUM 1,000 MG in SODIUM CHLORIDE 0.9% 50 ML IV SCH (14:56)
[2018-10-25] MEDS: METOPROLOL TARTRATE 25 MG TAB PO SCH ×2 (14:57→20:12)
[2018-10-25] MEDS: CHECK FENTANYL PATCH PLACEMENT SCH (16:31)
[2018-10-25] MEDS: PROSOURCE NO CARB 30 ML/PKT PEG SCH (16:31)
[2018-10-25] MEDS: PEPTAMEN 1.5 CAL 1,000 ML BAG PEG SCH (17:06)
[2018-10-25] MEDS: CHOLESTYRAMINE LIGHT 4 GM PKT PO SCH (21:21)
[2018-10-26] MEDS: CHECK FENTANYL PATCH PLACEMENT SCH ×3 (03:01→16:25)
[2018-10-26] MEDS: SODIUM CHLORIDE 0.9% 1000ML 1,000 ML IV SCH ×3 (03:35→20:59)
[2018-10-26] MEDS: OXYCODONE HCL IR 5 MG TAB (IMMEDIATE RELEASE) PO SCH ×4 (05:51→17:56)
[2018-10-26] MEDS: LEVOTHYROXINE SODIUM 25 MCG TABLET PO SCH (05:52)
[2018-10-26 07:10] LABS: Creatinine Clr Calc Pharmacy 39.4 ml/min; Est GFR (African American) 55.8; Est GFR (Non-African American) 48.2
[2018-10-26] MEDS: MULTI VIT W/MINERALS LIQUID 15 ML UDP PO SCH (08:36)
[2018-10-26] MEDS: THIAMINE HCL 100 MG TAB PO SCH (08:36)
[2018-10-26] MEDS: FERROUS SULFATE 325 MG/7.4 ML UDP PO SCH (08:36)
[2018-10-26] MEDS: METOPROLOL TARTRATE 25 MG TAB PO SCH ×2 (08:37→21:09)
[2018-10-26] MEDS: DIVALPROEX SODIUM SPRINKLE 125 MG CAP PO SCH ×2 (08:37→21:04)
[2018-10-26] MEDS: LANSOPRAZOLE 30 MG SOLTAB PO SCH (08:37)
[2018-10-26] MEDS: BACLOFEN 10 MG TAB PO SCH ×3 (08:38→21:08)
[2018-10-26] MEDS: VITAMIN B COMPLEX TAB PO SCH (08:38)
[2018-10-26] MEDS: APIXABAN 5 MG TABLET PO SCH ×2 (08:38→21:08)
[2018-10-26] MEDS: DOCUSATE SODIUM SYRUP 100 MG/10 ML UDC PO SCH (08:38)
[2018-10-26] MEDS: FOLIC ACID 1 MG TAB PO SCH (08:38)
[2018-10-26] MEDS ORDERED: ERGOCALCIFEROL 50,000 UNITS CAP PO SCH (09:00)
[2018-10-26] MEDS: CHOLESTYRAMINE LIGHT 4 GM PKT PO SCH ×2 (10:25→22:19)
[2018-10-26] MEDS: ERTAPENEM SODIUM 1,000 MG in SODIUM CHLORIDE 0.9% 50 ML IV SCH (12:20)
--- NOTE | 2018-10-26 12:48 | Hospitalist Progress Note ---
Date of Service October 26, 2018 Assessment & Plan (1) UTI (urinary tract infection): Has history of recurrent UTI with a chronic Childs catheter History of ESBL infection with E. coli Started on intravenous Zosyn and will continue Urine and blood culture have been sent History of ESBL in the urine is growing E. coli again Sensitivities pending and antibiotic be changed to ertapenem Clinically a lot better (2) Acute renal insufficiency: Creatinine went up to 1.93 from normal values AK I seems to be due to dehydration with BUN of 70 and low blood pressure Will start normal saline infusion and monitor PRP Will need nephrology if renal function does not improve Renal function has been improving Continue current IV fluid (3) Coronary artery disease: History of CAD Denies any acute cardiac symptoms and troponin is negative (4) Chronic systolic CHF (congestive heart failure): No evidence of fluid overload and chest x-ray and noted to have dehydration with AK I Will administer cautious amount of IV fluid for now No signs of fluid overload (5) Schizoid personality disorder: No acute delirium (6) Decubitus ulcer: Multiple chronic skin ulcers dating as back past 2-3 years Several states for ulcers involving both the buttocks, foot and sacrum None of the wounds wounds seem to be infected at this time Wound care consult for appropriate dressing Repositioning every 2 hours Special bed Continue with (7) Severe protein-calorie malnutrition: Continue nutritional support orally and by the PEG tube Consult nutrition-appreciate input and recommendation Continue PEG tube feeding (8) History of DVT (deep vein thrombosis): Continue Eliquis (9) Hypothyroidism: Continue replacement CODE STATUS Full for now Need to discuss with the father for further action regarding CODE STATUS Subjective 10/26 The patient was seen and examined the medical floor Looks much better today without any symptoms at rest Denies any symptoms at rest Physical Exam Vital Signs (Past 24 Hours): Last Vital Signs Temp 37.2 C 10/26/18 11:40 Pulse 82 10/26/18 11:40 Resp 14 10/26/18 11:40 BP 130/74 10/26/18 11:40 Pulse Ox 95 10/26/18 11:40 Physical Exam: Lying in bed comfortably. Has been bedbound for a long time Constitutional: WD/WN, vitals as above Eyes: PERRL, conjunctivae normal, anicteric sclerae ENMT: external ear and nose normal, oropharynx normal Neck: trachea midline, no thyromegaly Respiratory: normal respiratory effort Auscultation: + diminished lung sounds and + crackles (Minimal bibasilar crackles) Cardiovascular: Rate/Rhythm: regular rate and regular rhythm Heart Sounds: normal S1 and normal S2 Gastrointestinal (Abdomen): Inspection/Auscultation: abdomen normal to inspection and normal bowel sounds Percussion/Palpation: + abdomen tender and abdomen soft; no guarding and abdomen not rigid Neurologic: Alert and awake. Has been bedbound with flexor deformities involving the lower extremities Psychiatric: Orientation: alert and cooperative Affect: + depressed affect and + flat affect Results & Data Laboratory Results [facility] 10/26/18 05:57 Creatinine 1.44 H D Medications Administered Current Inpatient Medications Acetaminophen (Tylenol) 650 mg PO Q6H PRN PRN Reason: temp>101/mild pain 1-3 Stop: 11/24/18 10:17 Apixaban (Eliquis) 5 mg PO BID [facility] Stop: 11/24/18 10:17 Last Admin: 10/26/18 08:38 Dose: 5 mg Documented by: Baclofen (Lioresal) 5 mg PO TID [facility] Stop: 11/24/18 13:59 Last Admin: 10/26/18 08:38 Dose: 5 mg Documented by: Bisacodyl (Dulcolax) 10 mg [place] DAILY PRN PRN Reason: Constipation Stop: 11/24/18 10:17 Cholestyramine Resin (Questran) 4 gm PO BID@1000,2200 [facility] Stop: 11/24/18 21:59 Last Admin: 10/26/18 10:25 Dose: 4 gm Documented by: Divalproex Sodium (Depakote Sprinkle) 500 mg PO BID [facility] Stop: 11/24/18 10:59 Last Admin: 10/26/18 08:37 Dose: 500 mg Documented by: Docusate Sodium (Colace) 100 mg PO DAILY [facility] Stop: 11/24/18 10:59 Last Admin: 10/26/18 08:38 Dose: 100 mg Documented by: Enteral Nutritional Formula (Peptamen 1.5) 1,000 ml PEG DAILY@1500 [facility]; Protocol Stop: 11/24/18 14:59 Last Admin: 10/25/18 17:06 Dose: 1,000 ml Documented by: Ergocalciferol (Vitamin D2) 50,000 units PO WeSa@0900 [facility] Stop: 11/25/18 08:59 Last Admin: 10/26/18 08:36 Dose: 50,000 units Documented by: Ertapenem (Consult) 1 ea N/A UD PRN PRN Reason: Consult Stop: 11/24/18 11:57 Fentanyl (Duragesic) 25 mcg TD Q3D [facility] Stop: 11/08/18 11:59 Last Admin: 10/25/18 12:51 Dose: 25 mcg Documented by: Ferrous Sulfate (Feosol) 325 mg PO DAILY [facility] Stop: 11/24/18 11:14 Last Admin: 10/26/18 08:36 Dose: 325 mg Documented by: Folic Acid (Folvite) 1 mg PO DAILY [facility] Stop: 11/24/18 10:59 Last Admin: 10/26/18 08:38 Dose: 1 mg Documented by: Heparin Sodium (Beef Lung) (Heparin Sod 10 Unit/Ml Flush) 5 ml FLUSH PRN PRN PRN Reason: Flush Stop: 11/25/18 02:36 Last Admin: 10/26/18 05:52 Dose: 5 ml Documented by: Sodium Chloride (Nss 1000ml) 1,000 mls @ 125 mls/hr IV .Q8H [facility] Stop: 11/24/18 06:59 Last Admin: 10/26/18 12:20 Dose: 125 mls/hr Documented by: Ertapenem 1,000 mg/ Sodium (Chloride) 60 mls @ 100 mls/hr IV Q24H [facility] Stop: 11/04/18 12:29 Last Admin: 10/26/18 12:20 Dose: 60 mls/hr Documented by: Lansoprazole (Prevacid) 30 mg PO DAILY [facility] Stop: 11/24/18 10:59 Last Admin: 10/26/18 08:37 Dose: 30 mg Documented by: Levothyroxine Sodium (Synthroid) 25 mcg PO DAILYBB [facility] Stop: 11/24/18 10:59 Last Admin: 10/26/18 05:52 Dose: 25 mcg Documented by: Magnesium Hydroxide (Milk Of Magnesia) 30 ml PO DAILY PRN PRN Reason: Constipation Stop: 11/24/18 10:17 Metoprolol Tartrate (Lopressor) 25 mg PO BID [facility] Stop: 11/24/18 10:59 Last Admin: 10/26/18 08:37 Dose: 25 mg Documented by: Miscellaneous (Fentanyl Patch Check Placement) 1 ea N/A QS [facility] Stop: 11/24/18 15:59 Last Admin: 10/26/18 08:35 Dose: 1 ea Documented by: Miscellaneous (Fentanyl Patch Remove & Waste) 1 ea N/A Q3D [facility] Stop: 11/24/18 11:58 Last Admin: 10/25/18 12:59 Dose: 1 ea Documented by: Miscellaneous (Order Awaiting Action) 1 ea N/A QS [facility] Stop: 11/24/18 15:59 Last Admin: 10/26/18 08:36 Dose: Not Given Documented by: Multivitamins/Minerals (Cerovite Liquid) 15 ml PO DAILY [facility] Stop: 11/24/18 11:14 Last Admin: 10/26/18 08:36 Dose: 15 ml Documented by: Nutritional Formula (Prosource No Carb) 30 ml PEG DAILY@1500 [facility] Stop: 11/24/18 14:59 Last Admin: 10/25/18 16:31 Dose: 30 ml Documented by: Oxycodone HCl (Roxicodone Immediate Rel) 5 mg PO Q6 [facility] Stop: 11/08/18 11:59 Last Admin: 10/26/18 12:19 Dose: 5 mg Documented by: Sodium Biphosphate/Sodium Phosphate (Fleet Enema) 197 ml [place] DAILY PRN PRN Reason: Constipation Stop: 11/24/18 10:17 Thiamine HCl (Vitamin B-1) 100 mg PO DAILY [facility] Stop: 11/24/18 11:14 Last Admin: 10/26/18 08:36 Dose: 100 mg Documented by: Tramadol HCl (Ultram) 50 mg PO Q6H PRN PRN Reason: Pain Stop: 11/24/18 10:17 Last Admin: 10/25/18 20:10 Dose: 50 mg Documented by: Vitamin B Complex (Vitamin B Complex) 1 tab PO DAILY [facility] Stop: 11/24/18 11:14 Last Admin: 10/26/18 08:38 Dose: 1 tab Documented by: (1) UTI (urinary tract infection) Hematuria presence: without hematuria Urinary tract infection type: site unspecified Qualified Code(s): N39.0 - Urinary tract infection, site not specified
[2018-10-26] MEDS: PEPTAMEN 1.5 CAL 1,000 ML BAG PEG SCH (16:08)
[2018-10-26] MEDS: PROSOURCE NO CARB 30 ML/PKT PEG SCH (16:08)
[2018-10-27] MEDS: OXYCODONE HCL IR 5 MG TAB (IMMEDIATE RELEASE) PO SCH ×5 (00:02→23:59)
[2018-10-27] MEDS: CHECK FENTANYL PATCH PLACEMENT SCH ×4 (00:03→23:59)
[2018-10-27] MEDS: SODIUM CHLORIDE 0.9% 1000ML 1,000 ML IV SCH ×3 (03:49→20:17)
[2018-10-27] MEDS: LEVOTHYROXINE SODIUM 25 MCG TABLET PO SCH (05:33)
[2018-10-27 07:48] LABS: BUN Creatinine Ratio 48.7 (10-20); Calcium 7.5 mg/dl (8.5-10.1); Creatinine Clr Calc Pharmacy 56.1 ml/min; Est GFR (African American) 85.7; Magnesium 1.8 mg/dl (1.8-2.4); Phosphorus 3.3 mg/dl (2.5-4.9)
[2018-10-27] MEDS: BACLOFEN 10 MG TAB PO SCH ×3 (08:18→20:22)
[2018-10-27] MEDS: METOPROLOL TARTRATE 25 MG TAB PO SCH ×2 (08:18→20:22)
[2018-10-27] MEDS: DIVALPROEX SODIUM SPRINKLE 125 MG CAP PO SCH ×2 (08:18→20:19)
[2018-10-27] MEDS: THIAMINE HCL 100 MG TAB PO SCH (08:19)
[2018-10-27] MEDS: DOCUSATE SODIUM SYRUP 100 MG/10 ML UDC PO SCH (08:19)
[2018-10-27] MEDS: VITAMIN B COMPLEX TAB PO SCH (08:19)
[2018-10-27] MEDS: FOLIC ACID 1 MG TAB PO SCH (08:19)
[2018-10-27] MEDS: APIXABAN 5 MG TABLET PO SCH ×2 (08:19→20:21)
[2018-10-27] MEDS: MULTI VIT W/MINERALS LIQUID 15 ML UDP PO SCH (08:19)
[2018-10-27] MEDS: LANSOPRAZOLE 30 MG SOLTAB PO SCH (08:20)
[2018-10-27] MEDS: FERROUS SULFATE 325 MG/7.4 ML UDP PO SCH (08:20)
[2018-10-27] MEDS: CHOLESTYRAMINE LIGHT 4 GM PKT PO SCH ×2 (10:43→22:04)
[2018-10-27] MEDS: ERTAPENEM SODIUM 1,000 MG in SODIUM CHLORIDE 0.9% 50 ML IV SCH (11:59)
--- NOTE | 2018-10-27 12:43 | Hospitalist Progress Note ---
Date of Service October 27, 2018 Assessment & Plan (1) UTI (urinary tract infection): Has history of recurrent UTI with a chronic Childs catheter History of ESBL infection with E. coli Started on intravenous Zosyn and will continue Urine and blood culture have been sent History of ESBL in the urine is growing E. coli again Sensitivities pending and antibiotic be changed to ertapenem Clinically a lot better Urine culture grew ESBL We will continue current antibiotic (2) Acute renal insufficiency: Creatinine went up to 1.93 from normal values AK I seems to be due to dehydration with BUN of 70 and low blood pressure Will start normal saline infusion and monitor PRP Will need nephrology if renal function does not improve Renal function has been improving Continue current IV fluid Renal function is normalized (3) Coronary artery disease: History of CAD Denies any acute cardiac symptoms and troponin is negative (4) Chronic systolic CHF (congestive heart failure): No evidence of fluid overload and chest x-ray and noted to have dehydration with AK I Will administer cautious amount of IV fluid for now No signs of fluid overload (5) Schizoid personality disorder: No acute delirium (6) Decubitus ulcer: Multiple chronic skin ulcers dating as back past 2-3 years Several states for ulcers involving both the buttocks, foot and sacrum None of the wounds wounds seem to be infected at this time Wound care consult for appropriate dressing Repositioning every 2 hours Special bed Continue with (7) Severe protein-calorie malnutrition: Continue nutritional support orally and by the PEG tube Consult nutrition-appreciate input and recommendation Continue PEG tube feeding (8) History of DVT (deep vein thrombosis): Continue Eliquis (9) Hypothyroidism: Continue replacement CODE STATUS Full for now Need to discuss with the father for further action regarding CODE STATUS Subjective 10/26 The patient was seen and examined the medical floor Looks much better today without any symptoms at rest Denies any symptoms at rest 10/27 Remains stable No apparent distress Physical Exam Vital Signs (Past 24 Hours): Last Vital Signs Temp 36.8 C 10/27/18 07:40 Pulse 83 10/27/18 07:40 Resp 16 10/27/18 07:40 BP 121/64 10/27/18 07:40 Pulse Ox 96 10/27/18 07:40 Physical Exam: Lying in bed comfortably Constitutional: WD/WN, vitals as above Eyes: PERRL, conjunctivae normal, anicteric sclerae ENMT: external ear and nose normal, oropharynx normal Neck: trachea midline, no thyromegaly Respiratory: normal respiratory effort Auscultation: + diminished lung sounds and + crackles (Minimal bibasilar crackles) Cardiovascular: Rate/Rhythm: regular rate and regular rhythm Heart Sounds: normal S1 and normal S2 Gastrointestinal (Abdomen): Inspection/Auscultation: abdomen normal to inspection and normal bowel sounds Percussion/Palpation: + abdomen tender and abdomen soft; no guarding and abdomen not rigid Psychiatric: Orientation: alert and cooperative Affect: + depressed affect and + flat affect Results & Data Laboratory Results [facility] 10/27/18 06:14 Sodium 142 Potassium 4.0 Chloride 113 H Carbon Dioxide 24 BUN 49 H Creatinine 1.01 Glucose 116 H Calcium 7.5 L Medications Administered Current Inpatient Medications Acetaminophen (Tylenol) 650 mg PO Q6H PRN PRN Reason: temp>101/mild pain 1-3 Stop: 11/24/18 10:17 Apixaban (Eliquis) 5 mg PO BID [facility] Stop: 11/24/18 10:17 Last Admin: 10/27/18 08:19 Dose: 5 mg Documented by: Baclofen (Lioresal) 5 mg PO TID [facility] Stop: 11/24/18 13:59 Last Admin: 10/27/18 08:18 Dose: 5 mg Documented by: Bisacodyl (Dulcolax) 10 mg [place] DAILY PRN PRN Reason: Constipation Stop: 11/24/18 10:17 Cholestyramine Resin (Questran) 4 gm PO BID@1000,2200 [facility] Stop: 11/24/18 21:59 Last Admin: 10/27/18 10:43 Dose: 4 gm Documented by: Divalproex Sodium (Depakote Sprinkle) 500 mg PO BID [facility] Stop: 11/24/18 10:59 Last Admin: 10/27/18 08:18 Dose: 500 mg Documented by: Docusate Sodium (Colace) 100 mg PO DAILY [facility] Stop: 11/24/18 10:59 Last Admin: 10/27/18 08:19 Dose: 100 mg Documented by: Enteral Nutritional Formula (Peptamen 1.5) 1,000 ml PEG DAILY@1500 [facility]; Protocol Stop: 11/24/18 14:59 Last Admin: 10/26/18 16:08 Dose: 1,000 ml Documented by: Ergocalciferol (Vitamin D2) 50,000 units PO WeSa@0900 [facility] Stop: 11/25/18 08:59 Last Admin: 10/26/18 08:36 Dose: 50,000 units Documented by: Ertapenem (Consult) 1 ea N/A UD PRN PRN Reason: Consult Stop: 11/24/18 11:57 Fentanyl (Duragesic) 25 mcg TD Q3D [facility] Stop: 11/08/18 11:59 Last Admin: 10/25/18 12:51 Dose: 25 mcg Documented by: Ferrous Sulfate (Feosol) 325 mg PO DAILY [facility] Stop: 11/24/18 11:14 Last Admin: 10/27/18 08:20 Dose: 325 mg Documented by: Folic Acid (Folvite) 1 mg PO DAILY [facility] Stop: 11/24/18 10:59 Last Admin: 10/27/18 08:19 Dose: 1 mg Documented by: Heparin Sodium (Beef Lung) (Heparin Sod 10 Unit/Ml Flush) 5 ml FLUSH PRN PRN PRN Reason: Flush Stop: 11/25/18 02:36 Last Admin: 10/26/18 05:52 Dose: 5 ml Documented by: Sodium Chloride (Nss 1000ml) 1,000 mls @ 125 mls/hr IV .Q8H [facility] Stop: 11/24/18 06:59 Last Admin: 10/27/18 11:59 Dose: 125 mls/hr Documented by: Ertapenem 1,000 mg/ Sodium (Chloride) 60 mls @ 100 mls/hr IV Q24H [facility] Stop: 11/04/18 12:29 Last Admin: 10/27/18 11:59 Dose: 60 mls/hr Documented by: Lansoprazole (Prevacid) 30 mg PO DAILY [facility] Stop: 11/24/18 10:59 Last Admin: 10/27/18 08:20 Dose: 30 mg Documented by: Levothyroxine Sodium (Synthroid) 25 mcg PO DAILYBB [facility] Stop: 11/24/18 10:59 Last Admin: 10/27/18 05:33 Dose: 25 mcg Documented by: Magnesium Hydroxide (Milk Of Magnesia) 30 ml PO DAILY PRN PRN Reason: Constipation Stop: 11/24/18 10:17 Metoprolol Tartrate (Lopressor) 25 mg PO BID [facility] Stop: 11/24/18 10:59 Last Admin: 10/27/18 08:18 Dose: 25 mg Documented by: Miscellaneous (Fentanyl Patch Check Placement) 1 ea N/A QS [facility] Stop: 11/24/18 15:59 Last Admin: 10/27/18 08:18 Dose: 1 ea Documented by: Miscellaneous (Fentanyl Patch Remove & Waste) 1 ea N/A Q3D [facility] Stop: 11/24/18 11:58 Last Admin: 10/25/18 12:59 Dose: 1 ea Documented by: Miscellaneous (Order Awaiting Action) 1 ea N/A QS [facility] Stop: 11/24/18 15:59 Last Admin: 10/27/18 08:21 Dose: Not Given Documented by: Multivitamins/Minerals (Cerovite Liquid) 15 ml PO DAILY [facility] Stop: 11/24/18 11:14 Last Admin: 10/27/18 08:19 Dose: 15 ml Documented by: Nutritional Formula (Prosource No Carb) 30 ml PEG DAILY@1500 [facility] Stop: 11/24/18 14:59 Last Admin: 10/26/18 16:08 Dose: 30 ml Documented by: Oxycodone HCl (Roxicodone Immediate Rel) 5 mg PO Q6 [facility] Stop: 11/08/18 11:59 Last Admin: 10/27/18 05:33 Dose: 5 mg Documented by: Sodium Biphosphate/Sodium Phosphate (Fleet Enema) 197 ml [place] DAILY PRN PRN Reason: Constipation Stop: 11/24/18 10:17 Thiamine HCl (Vitamin B-1) 100 mg PO DAILY [facility] Stop: 11/24/18 11:14 Last Admin: 10/27/18 08:19 Dose: 100 mg Documented by: Tramadol HCl (Ultram) 50 mg PO Q6H PRN PRN Reason: Pain Stop: 11/24/18 10:17 Last Admin: 10/25/18 20:10 Dose: 50 mg Documented by: Vitamin B Complex (Vitamin B Complex) 1 tab PO DAILY [facility] Stop: 11/24/18 11:14 Last Admin: 10/27/18 08:19 Dose: 1 tab Documented by: (1) UTI (urinary tract infection) Hematuria presence: without hematuria Urinary tract infection type: site unspecified Qualified Code(s): N39.0 - Urinary tract infection, site not specified
[2018-10-27] MEDS: PEPTAMEN 1.5 CAL 1,000 ML BAG PEG SCH (15:30)
[2018-10-27] MEDS: PROSOURCE NO CARB 30 ML/PKT PEG SCH (15:31)
[2018-10-28] MEDS: SODIUM CHLORIDE 0.9% 1000ML 1,000 ML IV SCH ×3 (03:35→20:09)
[2018-10-28] MEDS: LEVOTHYROXINE SODIUM 25 MCG TABLET PO SCH (05:23)
[2018-10-28] MEDS: OXYCODONE HCL IR 5 MG TAB (IMMEDIATE RELEASE) PO SCH ×3 (05:23→18:06)
[2018-10-28 06:17] LABS: Hematocrit (blood only) 20.5 % (42-52); Hemoglobin 6.5 g/dL (14.0-18.0); Mean Corpuscular Hgb Conc 31.7 g/dL (32-36); Mean Platelet Volume 9.5 fL (7.4-10.4); Platelet Count 207 K/uL (130-400); RDW Coefficient of Variation 19.2 % (11.5-14.5); RDW Standard Deviation 59.5 fL (36.4-46.3); Red Blood Count 2.44 M/uL (4.7-6.1); White Blood Count 6.36 K/uL (4.8-10.8)
[2018-10-28 06:30] LABS: Basophils # (auto) 0.02 K/uL (0-0.2); Basophils % (auto) 0.3 %; Eosinophils # (auto) 0.13 K/uL (0-0.5); Immature Granulocytes # (auto) 0.01 K/uL (0.00-0.02); Immature Granulocytes % (auto) 0.2 %; Lymphocytes # (auto) 0.99 K/uL (1.2-3.4); Lymphocytes % (auto) 15.6 %; Monocytes # (auto) 0.75 K/uL (0.11-0.59); Monocytes % (auto) 11.8 %; Neutrophils # (auto) 4.46 K/uL (1.4-6.5); Neutrophils % (auto) 70.1 %; RBC Morphology Unremarkable
[2018-10-28 06:34] LABS: Creatinine Clr Calc Pharmacy 73.8 ml/min; Est GFR (African American) 102.9; Est GFR (Non-African American) 88.8
[2018-10-28] MEDS: DIVALPROEX SODIUM SPRINKLE 125 MG CAP PO SCH ×2 (09:13→20:15)
[2018-10-28] MEDS: CHECK FENTANYL PATCH PLACEMENT SCH ×2 (09:13→15:58)
[2018-10-28] MEDS: VITAMIN B COMPLEX TAB PO SCH (09:14)
[2018-10-28] MEDS: DOCUSATE SODIUM SYRUP 100 MG/10 ML UDC PO SCH (09:14)
[2018-10-28] MEDS: FOLIC ACID 1 MG TAB PO SCH (09:14)
[2018-10-28] MEDS: BACLOFEN 10 MG TAB PO SCH ×3 (09:15→20:17)
[2018-10-28] MEDS: THIAMINE HCL 100 MG TAB PO SCH (09:16)
[2018-10-28] MEDS: APIXABAN 5 MG TABLET PO SCH ×2 (09:17→20:17)
[2018-10-28] MEDS: LANSOPRAZOLE 30 MG SOLTAB PO SCH (09:17)
[2018-10-28] MEDS: MULTI VIT W/MINERALS LIQUID 15 ML UDP PO SCH (09:18)
[2018-10-28] MEDS: METOPROLOL TARTRATE 25 MG TAB PO SCH ×2 (09:18→20:18)
[2018-10-28] MEDS: FERROUS SULFATE 325 MG/7.4 ML UDP PO SCH (09:18)
[2018-10-28] MEDS: CHOLESTYRAMINE LIGHT 4 GM PKT PO SCH ×2 (10:25→22:08)
[2018-10-28] MEDS: fentaNYL 25 MCG/HR TDSY TD SCH (11:59)
[2018-10-28] MEDS: ERTAPENEM SODIUM 1,000 MG in SODIUM CHLORIDE 0.9% 50 ML IV SCH (12:03)
--- NOTE | 2018-10-28 12:49 | Hospitalist Progress Note ---
Date of Service October 28, 2018 Assessment & Plan (1) UTI (urinary tract infection): Childs catheter associated UTI" treated with IV Zosyn & IV Ertapenem Did not have any sepsis on admission Has history of recurrent UTI with a chronic Childs catheter History of ESBL infection with E. coli Started on intravenous Zosyn and will continue Urine and blood culture have been sent History of ESBL in the urine is growing E. coli again Sensitivities pending and antibiotic be changed to ertapenem Clinically a lot better Urine culture grew ESBL We will continue current antibiotic (2) Acute renal insufficiency: Creatinine went up to 1.93 from normal values AK I seems to be due to dehydration with BUN of 70 and low blood pressure Will start normal saline infusion and monitor PRP Will need nephrology if renal function does not improve Renal function has been improving Continue current IV fluid Renal function is normalized (3) Coronary artery disease: History of CAD Denies any acute cardiac symptoms and troponin is negative (4) Chronic systolic CHF (congestive heart failure): No evidence of fluid overload and chest x-ray and noted to have dehydration with AK I Will administer cautious amount of IV fluid for now No signs of fluid overload Received IV fluids and Lasix is on hold Drop in hemoglobin may be dilutional (5) Schizoid personality disorder: No acute delirium (6) Decubitus ulcer: Multiple chronic skin ulcers dating as back past 2-3 years Several states for ulcers involving both the buttocks, foot and sacrum None of the wounds wounds seem to be infected at this time Wound care consult for appropriate dressing Repositioning every 2 hours Special bed Continue with (7) Severe protein-calorie malnutrition: Continue nutritional support orally and by the PEG tube Consult nutrition-appreciate input and recommendation Continue PEG tube feeding (8) History of DVT (deep vein thrombosis): Continue Eliquis (9) Hypothyroidism: Continue replacement Hemoglobin is 6.9 today Will repeat tomorrow and if it is below 7 will transfuse 1 unit of blood CODE STATUS Full for now Need to discuss with the father for further action regarding CODE STATUS Subjective 10/26 The patient was seen and examined the medical floor Looks much better today without any symptoms at rest Denies any symptoms at rest 10/27 Remains stable No apparent distress 10/28 The patient was seen and examined in medical floor I had a long discussion with the brother who is the POA yesterday He is happy with the current management Discussed about possible DNR-no immediate response from the brother Physical Exam Vital Signs (Past 24 Hours): Last Vital Signs Temp 36.4 C L 10/28/18 07:12 Pulse 80 10/28/18 07:12 Resp 22 10/28/18 07:12 BP 126/51 L 10/28/18 07:12 Pulse Ox 97 10/28/18 07:12 Physical Exam: No apparent distress at rest Constitutional: WD/WN, vitals as above Eyes: PERRL, conjunctivae normal, anicteric sclerae ENMT: external ear and nose normal, oropharynx normal Neck: trachea midline, no thyromegaly Respiratory: normal respiratory effort Auscultation: + diminished lung sounds and + crackles (Minimal bibasilar crackles) Cardiovascular: Rate/Rhythm: regular rate and regular rhythm Heart Sounds: normal S1 and normal S2 Gastrointestinal (Abdomen): Inspection/Auscultation: abdomen normal to inspection and normal bowel sounds Percussion/Palpation: + abdomen tender and abdomen soft; no guarding and abdomen not rigid Psychiatric: Orientation: alert and cooperative Affect: + depressed affect and + flat affect Results & Data Laboratory Results Short CBC 10/28/18 Range/Units 05:43 WBC 6.36 (4.8-10.8) K/uL Hgb 6.5 L* (14.0-18.0) g/dL Hct 20.5 L* (42-52) % Plt Count 207 (130-400) K/uL BMP 10/28/18 05:43 Creatinine 0.81 Medications Administered Current Inpatient Medications Acetaminophen (Tylenol) 650 mg PO Q6H PRN PRN Reason: temp>101/mild pain 1-3 Stop: 11/24/18 10:17 Apixaban (Eliquis) 5 mg PO BID [facility] Stop: 11/24/18 10:17 Last Admin: 10/28/18 09:17 Dose: 5 mg Documented by: Baclofen (Lioresal) 5 mg PO TID [facility] Stop: 11/24/18 13:59 Last Admin: 10/28/18 09:15 Dose: 5 mg Documented by: Bisacodyl (Dulcolax) 10 mg [place] DAILY PRN PRN Reason: Constipation Stop: 11/24/18 10:17 Cholestyramine Resin (Questran) 4 gm PO BID@1000,2200 [facility] Stop: 11/24/18 21:59 Last Admin: 10/28/18 10:25 Dose: 4 gm Documented by: Divalproex Sodium (Depakote Sprinkle) 500 mg PO BID [facility] Stop: 11/24/18 10:59 Last Admin: 10/28/18 09:13 Dose: 500 mg Documented by: Docusate Sodium (Colace) 100 mg PO DAILY [facility] Stop: 11/24/18 10:59 Last Admin: 10/28/18 09:14 Dose: 100 mg Documented by: Enteral Nutritional Formula (Peptamen 1.5) 1,000 ml PEG DAILY@1500 [facility]; Protocol Stop: 11/24/18 14:59 Last Admin: 10/27/18 15:30 Dose: 1,000 ml Documented by: Ergocalciferol (Vitamin D2) 50,000 units PO WeSa@0900 [facility] Stop: 11/25/18 08:59 Last Admin: 10/26/18 08:36 Dose: 50,000 units Documented by: Ertapenem (Consult) 1 ea N/A UD PRN PRN Reason: Consult Stop: 11/24/18 11:57 Fentanyl (Duragesic) 25 mcg TD Q3D [facility] Stop: 11/08/18 11:59 Last Admin: 10/28/18 11:59 Dose: 25 mcg Documented by: Ferrous Sulfate (Feosol) 325 mg PO DAILY [facility] Stop: 11/24/18 11:14 Last Admin: 10/28/18 09:18 Dose: 325 mg Documented by: Folic Acid (Folvite) 1 mg PO DAILY [facility] Stop: 11/24/18 10:59 Last Admin: 10/28/18 09:14 Dose: 1 mg Documented by: Heparin Sodium (Beef Lung) (Heparin Sod 10 Unit/Ml Flush) 5 ml FLUSH PRN PRN PRN Reason: Flush Stop: 11/25/18 02:36 Last Admin: 10/28/18 08:51 Dose: 5 ml Documented by: Sodium Chloride (Nss 1000ml) 1,000 mls @ 125 mls/hr IV .Q8H [facility] Stop: 11/24/18 06:59 Last Admin: 10/28/18 12:00 Dose: 125 mls/hr Documented by: Ertapenem 1,000 mg/ Sodium (Chloride) 60 mls @ 100 mls/hr IV Q24H [facility] Stop: 11/04/18 12:29 Last Infusion: 10/28/18 12:56 Dose: Infused Documented by: Lansoprazole (Prevacid) 30 mg PO DAILY [facility] Stop: 11/24/18 10:59 Last Admin: 10/28/18 09:17 Dose: 30 mg Documented by: Levothyroxine Sodium (Synthroid) 25 mcg PO DAILYBB [facility] Stop: 11/24/18 10:59 Last Admin: 10/28/18 05:23 Dose: 25 mcg Documented by: Magnesium Hydroxide (Milk Of Magnesia) 30 ml PO DAILY PRN PRN Reason: Constipation Stop: 11/24/18 10:17 Metoprolol Tartrate (Lopressor) 25 mg PO BID [facility] Stop: 11/24/18 10:59 Last Admin: 10/28/18 09:18 Dose: 25 mg Documented by: Miscellaneous (Fentanyl Patch Check Placement) 1 ea N/A QS [facility] Stop: 11/24/18 15:59 Last Admin: 10/28/18 09:13 Dose: 1 ea Documented by: Miscellaneous (Fentanyl Patch Remove & Waste) 1 ea N/A Q3D [facility] Stop: 11/24/18 11:58 Last Admin: 10/28/18 11:59 Dose: 1 ea Documented by: Miscellaneous (Order Awaiting Action) 1 ea N/A QS [facility] Stop: 11/24/18 15:59 Last Admin: 10/28/18 07:37 Dose: Not Given Documented by: Multivitamins/Minerals (Cerovite Liquid) 15 ml PO DAILY [facility] Stop: 11/24/18 11:14 Last Admin: 10/28/18 09:18 Dose: 15 ml Documented by: Nutritional Formula (Prosource No Carb) 30 ml PEG DAILY@1500 [facility] Stop: 11/24/18 14:59 Last Admin: 10/27/18 15:31 Dose: 30 ml Documented by: Oxycodone HCl (Roxicodone Immediate Rel) 5 mg PO Q6 [facility] Stop: 11/08/18 11:59 Last Admin: 10/28/18 12:04 Dose: 5 mg Documented by: Sodium Biphosphate/Sodium Phosphate (Fleet Enema) 197 ml [place] DAILY PRN PRN Reason: Constipation Stop: 11/24/18 10:17 Thiamine HCl (Vitamin B-1) 100 mg PO DAILY [facility] Stop: 11/24/18 11:14 Last Admin: 10/28/18 09:16 Dose: 100 mg Documented by: Tramadol HCl (Ultram) 50 mg PO Q6H PRN PRN Reason: Pain Stop: 11/24/18 10:17 Last Admin: 10/25/18 20:10 Dose: 50 mg Documented by: Vitamin B Complex (Vitamin B Complex) 1 tab PO DAILY [facility] Stop: 11/24/18 11:14 Last Admin: 10/28/18 09:14 Dose: 1 tab Documented by: (1) UTI (urinary tract infection) Hematuria presence: without hematuria Urinary tract infection type: site unspecified Qualified Code(s): N39.0 - Urinary tract infection, site not specified
[2018-10-28] MEDS: PEPTAMEN 1.5 CAL 1,000 ML BAG PEG SCH (15:09)
[2018-10-28] MEDS: PROSOURCE NO CARB 30 ML/PKT PEG SCH (15:09)
[2018-10-28] MEDS: BACITRACIN OINT 15 GM TUBE EXT PRN (22:15)
[2018-10-29] MEDS: CHECK FENTANYL PATCH PLACEMENT SCH ×2 (01:33→08:44)
[2018-10-29] MEDS: OXYCODONE HCL IR 5 MG TAB (IMMEDIATE RELEASE) PO SCH ×3 (01:34→11:58)
[2018-10-29] MEDS: SODIUM CHLORIDE 0.9% 1000ML 1,000 ML IV SCH ×2 (06:00→14:15)
[2018-10-29] MEDS: LEVOTHYROXINE SODIUM 25 MCG TABLET PO SCH (06:01)
[2018-10-29 07:59] LABS: Hemoglobin 6.6 g/dL (14.0-18.0); Mean Corpuscular Hgb Conc 31.4 g/dL (32-36); Mean Platelet Volume 9.3 fL (7.4-10.4); Platelet Count 227 K/uL (130-400); RDW Standard Deviation 59.8 fL (36.4-46.3); Red Blood Count 2.47 M/uL (4.7-6.1); White Blood Count 5.72 K/uL (4.8-10.8)
[2018-10-29 08:15] LABS: Anisocytosis Present; Basophils # (auto) 0.03 K/uL (0-0.2); Basophils % (auto) 0.5 %; Eosinophils # (auto) 0.28 K/uL (0-0.5); Eosinophils % (auto) 4.9 %; Immature Granulocytes # (auto) 0.01 K/uL (0.00-0.02); Immature Granulocytes % (auto) 0.2 %; Lymphocytes # (auto) 1.32 K/uL (1.2-3.4); Lymphocytes % (auto) 23.1 %; Monocytes # (auto) 0.48 K/uL (0.11-0.59); Monocytes % (auto) 8.4 %; Neutrophils % (auto) 62.9 %
[2018-10-29 08:18] LABS: BUN Creatinine Ratio 41.5 (10-20); Calcium 7.7 mg/dl (8.5-10.1); Creatinine Clr Calc Pharmacy 76.3 ml/min; Est GFR (African American) 110.6; Est GFR (Non-African American) 95.4; Potassium 3.7 mmol/L (3.5-5.1)
[2018-10-29] MEDS: BACITRACIN OINT 15 GM TUBE EXT PRN (08:42)
[2018-10-29] MEDS: FERROUS SULFATE 325 MG/7.4 ML UDP PO SCH (08:42)
[2018-10-29] MEDS: VITAMIN B COMPLEX TAB PO SCH (08:43)
[2018-10-29] MEDS: METOPROLOL TARTRATE 25 MG TAB PO SCH (08:43)
[2018-10-29] MEDS: THIAMINE HCL 100 MG TAB PO SCH (08:43)
[2018-10-29] MEDS: MULTI VIT W/MINERALS LIQUID 15 ML UDP PO SCH (08:43)
[2018-10-29] MEDS: BACLOFEN 10 MG TAB PO SCH ×2 (08:43→14:14)
[2018-10-29] MEDS: FOLIC ACID 1 MG TAB PO SCH (08:44)
[2018-10-29] MEDS: DOCUSATE SODIUM SYRUP 100 MG/10 ML UDC PO SCH (08:44)
[2018-10-29] MEDS: DIVALPROEX SODIUM SPRINKLE 125 MG CAP PO SCH (08:44)
[2018-10-29] MEDS: APIXABAN 5 MG TABLET PO SCH (08:44)
[2018-10-29] MEDS: LANSOPRAZOLE 30 MG SOLTAB PO SCH (08:44)
[2018-10-29] MEDS ORDERED: SODIUM CHLORIDE 0.9% 250 ML IV PRN (08:46)
[2018-10-29] MEDS: CHOLESTYRAMINE LIGHT 4 GM PKT PO SCH (10:39)
--- NOTE | 2018-10-29 11:08 | Hospitalist Progress Note ---
Date of Service October 29, 2018 Assessment & Plan (1) UTI (urinary tract infection): Admitted with sepsis in setting of Childs catheter associated UTI treated with fluid boluses and IV antibiotics. Childs catheter associated UTI" treated with IV Zosyn & IV Ertapenem Has history of recurrent UTI with a chronic Childs catheter History of ESBL infection with E. coli Started on intravenous Zosyn and will continue Blood culture negative History of ESBL in the urine is growing E. coli again Sensitivities pending and antibiotic be changed to ertapenem Clinically a lot better Urine culture grew ESBL We will continue current antibiotic and will finish the total of 14 days of treatment (2) Acute renal insufficiency: Creatinine went up to 1.93 from normal values AK I seems to be due to dehydration with BUN of 70 and low blood pressure Will start normal saline infusion and monitor PRP Will need nephrology if renal function does not improve Renal function has been improving Continue current IV fluid Renal function is normalized (3) Coronary artery disease: History of CAD Denies any acute cardiac symptoms and troponin is negative (4) Chronic systolic CHF (congestive heart failure): No evidence of fluid overload and chest x-ray and noted to have dehydration with AK I Will administer cautious amount of IV fluid for now No signs of fluid overload Received IV fluids and Lasix is on hold Drop in hemoglobin may be dilutional (5) Schizoid personality disorder: No acute delirium (6) Decubitus ulcer: Multiple chronic skin ulcers dating as back past 2-3 years Several states for ulcers involving both the buttocks, foot and sacrum None of the wounds wounds seem to be infected at this time Wound care consult for appropriate dressing Repositioning every 2 hours Special bed Continue with (7) Severe protein-calorie malnutrition: Continue nutritional support orally and by the PEG tube Consult nutrition-appreciate input and recommendation Continue PEG tube feeding (8) History of DVT (deep vein thrombosis): Continue Eliquis (9) Hypothyroidism: Continue replacement Hemoglobin is 6.9 today Will repeat tomorrow and if it is below 7 will transfuse 1 unit of blood Hemoglobin dropped to 6.6 today Dropping hemoglobin is due to chronic disease with acute infection He will receive 1 unit of blood transfusion today Discussed with the brother Who will be going to [facility] this afternoon CODE STATUS Full for now Need to discuss with the father for further action regarding CODE STATUS Subjective 10/26 The patient was seen and examined the medical floor Looks much better today without any symptoms at rest Denies any symptoms at rest 10/27 Remains stable No apparent distress 10/28 The patient was seen and examined in medical floor I had a long discussion with the brother who is the POA yesterday He is happy with the current management Discussed about possible DNR-no immediate response from the brother 10/29 Remains stable without any symptoms Hemoglobin dropped to 6.6 and will receive 1 unit of blood transfusion Discussed with the brother and [facility] Exam Vital Signs (Past 24 Hours): Last Vital Signs Temp 36.6 C 10/29/18 08:03 Pulse 76 10/29/18 08:03 Resp 20 10/29/18 08:03 BP 148/73 H 10/29/18 08:03 Pulse Ox 96 10/29/18 08:03 Physical Exam: No apparent distress at rest Constitutional: WD/WN, vitals as above Eyes: PERRL, conjunctivae normal, anicteric sclerae ENMT: external ear and nose normal, oropharynx normal Neck: trachea midline, no thyromegaly Respiratory: normal respiratory effort Auscultation: + diminished lung sounds and + crackles (Minimal bibasilar crackles) Cardiovascular: Rate/Rhythm: regular rate and regular rhythm Heart Sounds: normal S1 and normal S2 Gastrointestinal (Abdomen): Inspection/Auscultation: abdomen normal to inspection and normal bowel sounds Percussion/Palpation: + abdomen tender and abdomen soft; no guarding and abdomen not rigid Psychiatric: Orientation: alert and cooperative Affect: + depressed affect and + flat affect Results & Data Laboratory Results Short CBC 10/29/18 Range/Units 07:11 WBC 5.72 (4.8-10.8) K/uL Hgb 6.6 L* (14.0-18.0) g/dL Hct 21.0 L (42-52) % Plt Count 227 (130-400) K/uL BMP 10/29/18 07:11 Sodium 145 Potassium 3.7 Chloride 116 H Carbon Dioxide 24 BUN 28 H Creatinine 0.68 Glucose 111 H Calcium 7.7 L Medications Administered Current Inpatient Medications Acetaminophen (Tylenol) 650 mg PO Q6H PRN PRN Reason: temp>101/mild pain 1-3 Stop: 11/24/18 10:17 Apixaban (Eliquis) 5 mg PO BID DIOR Stop: 11/24/18 10:17 Last Admin: 10/29/18 08:44 Dose: 5 mg Documented by: Bacitracin (Bacitracin) 1 appln EXT DAILY PRN PRN Reason: to PEG tube insertion site Stop: 11/27/18 14:49 Last Admin: 10/29/18 08:42 Dose: 1 appln Documented by: Baclofen (Lioresal) 5 mg PO TID [facility] Stop: 11/24/18 13:59 Last Admin: 10/29/18 08:43 Dose: 5 mg Documented by: Bisacodyl (Dulcolax) 10 mg WV DAILY PRN PRN Reason: Constipation Stop: 11/24/18 10:17 Cholestyramine Resin (Questran) 4 gm PO BID@1000,2200 [facility] Stop: 11/24/18 21:59 Last Admin: 10/29/18 10:39 Dose: 4 gm Documented by: Divalproex Sodium (Depakote Sprinkle) 500 mg PO BID [facility] Stop: 11/24/18 10:59 Last Admin: 10/29/18 08:44 Dose: 500 mg Documented by: Docusate Sodium (Colace) 100 mg PO DAILY [facility] Stop: 11/24/18 10:59 Last Admin: 10/29/18 08:44 Dose: 100 mg Documented by: Enteral Nutritional Formula (Peptamen 1.5) 1,000 ml PEG DAILY@1500 DIOR; Protocol Stop: 11/24/18 14:59 Last Admin: 10/28/18 15:09 Dose: 1,000 ml Documented by: Ergocalciferol (Vitamin D2) 50,000 units PO WeSa@0900 [facility] Stop: 11/25/18 08:59 Last Admin: 10/26/18 08:36 Dose: 50,000 units Documented by: Ertapenem (Consult) 1 ea N/A UD PRN PRN Reason: Consult Stop: 11/24/18 11:57 Fentanyl (Duragesic) 25 mcg TD Q3D [facility] Stop: 11/08/18 11:59 Last Admin: 10/28/18 11:59 Dose: 25 mcg Documented by: Ferrous Sulfate (Feosol) 325 mg PO DAILY [facility] Stop: 11/24/18 11:14 Last Admin: 10/29/18 08:42 Dose: 325 mg Documented by: Folic Acid (Folvite) 1 mg PO DAILY DIOR Stop: 11/24/18 10:59 Last Admin: 10/29/18 08:44 Dose: 1 mg Documented by: Heparin Sodium (Beef Lung) (Heparin Sod 10 Unit/Ml Flush) 5 ml FLUSH PRN PRN PRN Reason: Flush Stop: 11/25/18 02:36 Last Admin: 10/28/18 08:51 Dose: 5 ml Documented by: Sodium Chloride (Nss 1000ml) 1,000 mls @ 125 mls/hr IV .Q8H DIOR Stop: 11/24/18 06:59 Last Admin: 10/29/18 06:00 Dose: 125 mls/hr Documented by: Ertapenem 1,000 mg/ Sodium (Chloride) 60 mls @ 100 mls/hr IV Q24H [facility] Stop: 11/04/18 12:29 Last Infusion: 10/28/18 12:56 Dose: Infused Documented by: Sodium Chloride (Nss) 250 mls @ 15 mls/hr IV .[id number] PRN PRN Reason: For Transfusion Stop: 11/28/18 08:45 Lansoprazole (Prevacid) 30 mg PO DAILY DIOR Stop: 11/24/18 10:59 Last Admin: 10/29/18 08:44 Dose: 30 mg Documented by: Levothyroxine Sodium (Synthroid) 25 mcg PO DAILYBB [facility] Stop: 11/24/18 10:59 Last Admin: 10/29/18 06:01 Dose: 25 mcg Documented by: Magnesium Hydroxide (Milk Of Magnesia) 30 ml PO DAILY PRN PRN Reason: Constipation Stop: 11/24/18 10:17 Metoprolol Tartrate (Lopressor) 25 mg PO BID [facility] Stop: 11/24/18 10:59 Last Admin: 10/29/18 08:43 Dose: 25 mg Documented by: Miscellaneous (Fentanyl Patch Check Placement) 1 ea N/A QS [facility] Stop: 11/24/18 15:59 Last Admin: 10/29/18 08:44 Dose: 1 ea Documented by: Miscellaneous (Fentanyl Patch Remove & Waste) 1 ea N/A Q3D DIOR Stop: 11/24/18 11:58 Last Admin: 10/28/18 11:59 Dose: 1 ea Documented by: Miscellaneous (Order Awaiting Action) 1 ea N/A QS [facility] Stop: 11/24/18 15:59 Last Admin: 10/29/18 07:12 Dose: Not Given Documented by: Multivitamins/Minerals (Cerovite Liquid) 15 ml PO DAILY [facility] Stop: 11/24/18 11:14 Last Admin: 10/29/18 08:43 Dose: 15 ml Documented by: Nutritional Formula (Prosource No Carb) 30 ml PEG DAILY@1500 [facility] Stop: 11/24/18 14:59 Last Admin: 10/28/18 15:09 Dose: 30 ml Documented by: Oxycodone HCl (Roxicodone Immediate Rel) 5 mg PO Q6 DI[facility] Stop: 11/08/18 11:59 Last Admin: 10/29/18 06:03 Dose: 5 mg Documented by: Sodium Biphosphate/Sodium Phosphate (Fleet Enema) 197 ml WV DAILY PRN PRN Reason: Constipation Stop: 11/24/18 10:17 Thiamine HCl (Vitamin B-1) 100 mg PO DAILY [facility] Stop: 11/24/18 11:14 Last Admin: 10/29/18 08:43 Dose: 100 mg Documented by: Tramadol HCl (Ultram) 50 mg PO Q6H PRN PRN Reason: Pain Stop: 11/24/18 10:17 Last Admin: 10/25/18 20:10 Dose: 50 mg Documented by: Vitamin B Complex (Vitamin B Complex) 1 tab PO DAILY [facility] Stop: 11/24/18 11:14 Last Admin: 10/29/18 08:43 Dose: 1 tab Documented by: (1) UTI (urinary tract infection) Hematuria presence: without hematuria Urinary tract infection type: site unspecified Qualified Code(s): N39.0 - Urinary tract infection, site not specified
[2018-10-29] MEDS: ERTAPENEM SODIUM 1,000 MG in SODIUM CHLORIDE 0.9% 50 ML IV SCH (11:58)
--- NOTE | 2018-10-30 08:50 | Discharge Summary ---
Date of Service October 30, 2018 Admission HPI Per Admitting Provider He is a 73-year-old male resident of [facility] with history of seizure-like personality disorder, CAD, CHF, DVT and other problems as mentioned in medical history was sent in from [facility] this morning with complaints of low urine output overnight and also fever of 38 C. He was also noted to be more confused than before. He is a poor historian and the history obtained from ER records and records from [facility]. Notable history is that he has multiple decubiti ulcers of chronic duration and prolonged immobilization with flexor deformity of the lower extremities. In August of this year he has had treatment for osteomyelitis of the right femoral head with vancomycin and ertapenem for 6 weeks. He also has poor nutrition and has been fed through the feeding tube. He remained hemodynamically stable with blood pressure on the lower side in the emergency room and he did not have any complaints at the same time he is a very poor historian. His white counts were elevated and UA was very suggestive of in fection. The Childs was changed and it was draining normally and his blood pressure was picking up with intravenous fluid. He was admitted to medical floor for continuation of care. Admission Exam Per Admitting Provider Vital Signs (Past 24 Hours): Last Vital Signs Temp 38.0 C H 10/25/18 04:42 Pulse 102 H 10/25/18 08:30 Resp 28 H 10/25/18 08:30 BP 107/67 10/25/18 08:30 Pulse Ox 100 10/25/18 08:30 Physical Exam: Lying in bed comfortably Constitutional: WD/WN, vitals as above Eyes: PERRL, conjunctivae normal, anicteric sclerae ENMT: external ear and nose normal, oropharynx normal Neck: trachea midline, no thyromegaly Respiratory: normal respiratory effort Auscultation: + diminished lung sounds and + crackles (Minimal bibasilar crackles) Cardiovascular: Rate/Rhythm: regular rate and regular rhythm Heart Sounds: normal S1 and normal S2 Gastrointestinal (Abdomen): Inspection/Auscultation: abdomen normal to inspection and normal bowel sounds Percussion/Palpation: + abdomen tender and abdomen soft; no guarding and abdomen not rigid PEG tube is in situ Skin: Has multiple decubiti ulcers involving the buttocks sacral area and lower extremities. Please look the wound care nurses note for detailed examination and findings Neurologic: Alert and awake. Confused. Flexor deformity of the lower extremities. Bedbound Psychiatric: Orientation: alert and cooperative Affect: + depressed affect and + flat affect Principal Diagnosis Complicated UTI with ESBL. Schizoaffective disorder. Bedbound with multiple decubiti Discharge Exam Constitutional WD/WN, vitals as above Eyes PERRL, conjunctivae normal, anicteric sclerae ENMT external ear and nose normal, oropharynx normal Neck trachea midline, no thyromegaly Respiratory normal respiratory effort Auscultation: + diminished lung sounds and + crackles (Minimal bibasilar crackles) Cardiovascular Rate/Rhythm: regular rate and regular rhythm Heart Sounds: normal S1 and normal S2 Gastrointestinal (Abdomen) Inspection/Auscultation: abdomen normal to inspection and normal bowel sounds Percussion/Palpation: + abdomen tender and abdomen soft; no guarding and abdomen not rigid Psychiatric Orientation: alert and cooperative Affect: + depressed affect and + flat affect Discharge Data Allergies Allergy/AdvReac Type Severity Reaction Status Date / Time iodine Allergy Unknown Unknown Verified 10/25/18 05:14 onion AdvReac Intermediate vomitting Verified 10/25/18 05:14 Hospital Course (1) UTI (urinary tract infection): Admitted with sepsis in setting of Childs catheter associated UTI treated with fluid boluses and IV antibiotics. Childs catheter associated UTI" treated with IV Zosyn & IV Ertapenem Has history of recurrent UTI with a chronic Childs catheter History of ESBL infection with E. coli Started on intravenous Zosyn and will continue Blood culture negative History of ESBL in the urine is growing E. coli again Sensitivities pending and antibiotic be changed to ertapenem Clinically a lot better Urine culture grew ESBL We will continue current antibiotic and will finish the total of 14 days of treatment (2) Acute renal insufficiency: Creatinine went up to 1.93 from normal values AK I seems to be due to dehydration with BUN of 70 and low blood pressure Will start normal saline infusion and monitor PRP Will need nephrology if renal function does not improve Renal function has been improving Continue current IV fluid Renal function is normalized (3) Coronary artery disease: History of CAD Denies any acute cardiac symptoms and troponin is negative (4) Chronic systolic CHF (congestive heart failure): No evidence of fluid overload and chest x-ray and noted to have dehydration with AK I Will administer cautious amount of IV fluid for now No signs of fluid overload Received IV fluids and Lasix is on hold Drop in hemoglobin may be dilutional (5) Schizoid personality disorder: No acute delirium (6) Decubitus ulcer: Multiple chronic skin ulcers dating as back past 2-3 years Several states for ulcers involving both the buttocks, foot and sacrum None of the wounds wounds seem to be infected at this time Wound care consult for appropriate dressing Repositioning every 2 hours Special bed Continue with (7) Severe protein-calorie malnutrition: Continue nutritional support orally and by the PEG tube Consult nutrition-appreciate input and recommendation Continue PEG tube feeding (8) History of DVT (deep vein thrombosis): Continue Eliquis (9) Hypothyroidism: Continue replacement Hemoglobin is 6.9 today Will repeat tomorrow and if it is below 7 will transfuse 1 unit of blood Hemoglobin dropped to 6.6 today Dropping hemoglobin is due to chronic disease with acute infection He will receive 1 unit of blood transfusion today Discussed with the brother Who will be going to [facility] this afternoon CODE STATUS Full for now Need to discuss with the father for further action regarding CODE STATUS Total Time Total Time Spent Total Time Spent (In Minutes): 40 minutes Total Time Includes: Examination of the Patient, Discharge Planning and Medication Reconciliation Discharge Plan Discharge Items Patient Disposition: Transfer Assisted Fac Reason For Visit: UTI Discharge Diagnosis: Complicated UTI with ESBL. Schizoaffective disorder. Bedbound with multiple decubiti Condition: Fair Discharge Goals: Decrease discomfort, Improve function and Increase independence Activity: Resume your previous activity Activity Comment: Needs assistance in ADL S Non-emergency contact: Primary Care Provider Call non-emergency contact if: you have any medication questions Follow-up/Referrals: Sameera Villa [Primary Care Provider] - Diet: Enteral nutrition and Nothing by mouth Fluids: 1800ml (7 cups) Diet Comment: Continue enteral feeding as before. Addtl Provider Instructions: Please take precaution to avoid falls. All medications should be given through the PEG tube. Antibiotics should be continued as advised. Ertapenem IV for 10 days Prescriptions: New fentanyl 25 mcg/hr Patch 72 Hour 25 mcg transdermal Q3D Qty: 5 RF: 0 oxycodone 5 mg Tablet 5 mg PO Q6 PRN (Reason: pain) Qty: 20 RF: 0 ertapenem 1 gram recon soln 1 gm IV DAILY Qty: 10 RF: 0 Continued thiamine HCl (vitamin B1) 100 mg Tablet 100 mg PO DAILY RF: 0 docusate sodium 50 mg/15 mL Syrup 10 ml PO DAILY RF: 0 melatonin 3 mg Tablet 3 mg PO HS RF: 0 tramadol 50 mg Tablet 50 mg PO Q6H PRN (Reason: Pain) RF: 0 levothyroxine 25 mcg Tablet 1 tab PO DAILY RF: 0 magnesium hydroxide [Milk of Magnesia] 400 mg/5 mL Suspension 30 ml PO DAILY PRN (Reason: Constipation) RF: 0 baclofen 10 mg Tablet 5 mg PO TID RF: 0 bisacodyl 10 mg Suppository 10 mg AK DAILY PRN (Reason: Constipation) RF: 0 ferrous sulfate 325 mg (65 mg iron) Tablet 325 mg PO DAILY RF: 0 divalproex 125 mg Tablet,Delayed Release (Dr/Ec) 4 cap PO BID RF: 0 Enema 19-7 gram/118 mL Enema 197 ml AK DAILY PRN (Reason: Constipation) RF: 0 vitamin B complex Tablet 1 tab PO DAILY RF: 0 folic acid 1 mg Tablet 1 mg PO DAILY RF: 0 ergocalciferol (vitamin D2) 50,000 unit Capsule 50,000 unit PO 2XWK RF: 0 metoprolol tartrate 25 mg Tablet 25 mg PO BID RF: 0 Cholestyramine Light 4 gram Powder 4 g PO BID RF: 0 Eliquis 5 mg Tablet 5 mg PO BID RF: 0 acetaminophen 325 mg Tablet 650 mg PO Q6H MDD 3gm/24hr PRN (Reason: temp>101) RF: 0 acetaminophen [Tylenol] 325 mg Tablet 650 mg PO Q6H MDD 3g/24hr PRN (Reason: mild pain 1-3) RF: 0 Probiotic (S.boulardii) 250 mg Capsule 250 mg PO BID RF: 0 Stress Formula with Zinc Tablet 1 tab PO DAILY RF: 0 docusate sodium [Docu] 50 mg/5 mL Liquid 100 mg PO BID RF: 0 fentanyl 25 mcg/hr Patch 72 Hour 25 mcg Transdermal Q3D Qty: 5 RF: 0 oxycodone 5 mg Tablet 5 mg PO Q6 Qty: 20 RF: 0 lansoprazole [Prevacid SoluTab] 30 mg tablet,disintegrat, delay rel 30 mg PO DAILY Qty: 30 RF: 0 Stand-Alone Forms: [facility] Discharge Orders: Discharge Order (Routine); Ordered 10/29/18 Ordered By: Areli Reyes Skilled Items Patient informed of condition?: Yes DNR: No Discharge Level of Care: Skilled Communicable Disease: No Discharge Prognosis: Stable Admission Data Admit Date/Time: 10/25/18 08:45 Attending Provider: Areli Reyes Admit Provider: Areli Reyes Primary Care Provider: Sameera Villa Service: Medical Other Interventions: Discharge Summary Assessment (RN) Last Done: 10/29/18 15:03 DC Date/Time DO NOT enter until pt leaves facility: 10/29/18 15:38
== END 2018-10-29 15:38 | DRG 698 ==
LOC: ED 04:34 → 4E 08:45

== ENCOUNTER 2018-11-05 07:38 | Inpatient (IN) ==
[2018-11-05] MEDS ORDERED: SODIUM CHLORIDE 0.9% 1000ML 1,000 ML IV SCH (08:15)
[2018-11-05] MEDS ORDERED: SODIUM CHLORIDE 0.9% 1000ML 500 ML IV ONE (08:16)
--- NOTE | 2018-11-05 08:40 | Emergency Department Note ---
Entered by Debi Vegas acting as a scribe for History of Present Illness General Chief complaint: Rectal Bleed Time Seen by Provider: 11/05/18 08:03 Source: patient History of Present Illness Onset (ago): day(s) (this morning) Location: buttocks (rectal) Pain Consistency: + other (episode ) Maximum Pain Intensity: 7 Quality: + other (bleeding) Associated symptoms: + other (lower back pain) The patient is a 73 year old male who presents to the Emergency Room with complaints of an episode of rectal bleeding that started this morning. The patient is a resident at [facility] and states that they noticed he had bleeding from his rectum so they sent him to the Emergency Room to be examined. He denies that he has had similar symptoms in the past. He states he is experiencing lower back pain but that it has been like that for a period of time. He notes that he unable to sit up due to pain. He notes he has a wound in his left leg where femur is chronically exposed. Home Medications Home Medications Medication Instructions Recorded Confirmed Type Cholestyramine Light 4 g PO BID 09/16/18 11/05/18 History Eliquis 5 mg PO BID 09/16/18 11/05/18 History Enema 197 ml OH DAILY PRN 09/16/18 11/05/18 History baclofen 5 mg PO TID 09/16/18 11/05/18 History bisacodyl 10 mg OH DAILY PRN 09/16/18 11/05/18 History divalproex 4 cap PO BID 09/16/18 11/05/18 History ergocalciferol (vitamin D2) 50,000 unit PO 2XWK 09/16/18 11/05/18 History ferrous sulfate 325 mg PO BID 09/16/18 11/05/18 History folic acid 1 mg PO DAILY 09/16/18 11/05/18 History levothyroxine 1 tab PO DAILY 09/16/18 11/05/18 History magnesium hydroxide [Milk of 30 ml PO DAILY PRN 09/16/18 11/05/18 History Magnesia] melatonin 3 mg PO HS 09/16/18 11/05/18 History thiamine HCl (vitamin B1) 100 mg PO DAILY 09/16/18 11/05/18 History tramadol 50 mg PO Q6H PRN 09/16/18 11/05/18 History vitamin B complex 1 tab PO DAILY 09/16/18 11/05/18 History Probiotic (S.boulardii) 250 mg PO BID 10/07/18 11/05/18 History Stress Formula with Zinc 1 tab PO DAILY 10/07/18 11/05/18 History acetaminophen 650 mg PO Q6H PRN MDD 3gm/24hr 10/07/18 11/05/18 History acetaminophen [Tylenol] 650 mg PO Q6H PRN MDD 3g/24hr 10/07/18 11/05/18 History docusate sodium [Docu] 100 mg PO BID 10/07/18 11/05/18 History ertapenem 1 gm IV DAILY #10 ea 10/29/18 11/05/18 Rx fentanyl 25 mcg TRANSDERMAL Q3D #5 ea 10/29/18 11/05/18 Rx oxycodone 5 mg PO Q6 PRN #20 tab 10/29/18 11/05/18 Rx metoprolol succinate 25 mg PO DAILY 11/05/18 11/05/18 History pantoprazole 40 mg PO DAILY 11/05/18 11/05/18 History Allergies Allergy/AdvReac Type Severity Reaction Status Date / Time iodine Allergy Unknown Unknown Verified 10/25/18 05:14 onion AdvReac Intermediate vomitting Verified 10/25/18 05:14 Past Med/Surg History Medical History Coronary artery disease (Chronic) s/p HI 2007 Chronic systolic CHF (congestive heart failure) (Chronic) GERD (gastroesophageal reflux disease) (Chronic) Hypothyroidism (Chronic) Anxiety (Chronic) Schizoid personality disorder (Chronic) Decubitus ulcer (Chronic) multiple, chronic Osteomyelitis (Acute) right femoral head Aug 2018 treated with 6 wks vanco + ertapenem Wound infection (Acute) Pseudomonas PEG site October 2018 History of ESBL E. coli infection (Resolved) Aug 2018, + blood and urine cultures Urethral trauma (Acute) Aug 2018. Childs cath. Severe protein-calorie malnutrition (Chronic) Dyslipidemia (Chronic) Chronic pain (Chronic) History of DVT (deep vein thrombosis) (Chronic) LLE 2017 Anxiety (Chronic) HTN (hypertension) (Chronic) Hypothyroidism (Chronic) GERD (gastroesophageal reflux disease) (Chronic) Anemia (Chronic) Schizoid personality disorder (Chronic) Myocardial infarction (Chronic) Dyslipidemia (Chronic) History of electroconvulsive therapy (Chronic) History of Clostridium difficile colitis (Chronic) Bacteremia C. difficile colitis DVT (deep venous thrombosis) Depression Esophagitis Childs catheter in place Iron deficiency Osteomyelitis Pressure ulcer of ankle, right, unstageable Pressure ulcer of sacral region, stage 4 Surgical History History of appendectomy (Chronic) Status post insertion of inferior vena caval filter (Chronic) Status post insertion of percutaneous endoscopic gastrostomy (PEG) tube (Chronic) Sep 2018 S/P PICC central line placement Family History Other Family history non-contributory Social History Preferred Language: Bulgarian Communication Ability: Impaired Manager Ed Required: No Beliefs That Will Affect Care: None Current Living Situation: Intermediate Current Living Situation Comment: [facility] Other Information That Helps Us Care for You: No Feels Safe at Home: Yes Safety Concerns: Feels Safe At This Time Smoking Status: Former smoker Hx Alcohol Use: No Hx Substance Use: No Review of Systems See HPI for pertinent positives & negatives. and A total of 10 systems reviewed and were otherwise negative Physical Exam Vital Signs Vital Signs - 24 hr 11/05/18 07:53 11/05/18 08:34 11/05/18 09:14 Temperature 37 C Temperature Source Oral Sepsis Recent Fever Within 48 Hours No Sepsis Action Taken by Nursing No Action Required Pulse Rate 83 Pulse Rate [Left Apical] 74 Respiratory Rate 16 18 Respiratory Effort / Characteristics Non-Labored Non-Labored Respiratory Depth Normal Normal Blood Pressure 128/63 Blood Pressure [Right Arm] 143/73 H Blood Pressure Mean 84 Blood Pressure Mean [Right Arm] 96 Blood Pressure Position [Right Arm] Pulse Oximetry 97 97 Oxygen Delivery Method Room Air Room Air Room Air 11/05/18 10:24 11/05/18 11:19 11/05/18 12:55 Temperature Temperature Source Sepsis Recent Fever Within 48 Hours Sepsis Action Taken by Nursing Pulse Rate 71 Pulse Rate [Left Apical] 74 76 Respiratory Rate 16 16 18 Respiratory Effort / Characteristics Non-Labored Spontaneous Respiratory Depth Blood Pressure 131/71 Blood Pressure [Right Arm] 122/75 117/66 Blood Pressure Mean Blood Pressure Mean [Right Arm] 90 83 Blood Pressure Position [Right Arm] Lying Pulse Oximetry 97 97 97 Oxygen Delivery Method Room Air Room Air Room Air 11/05/18 15:09 11/05/18 15:34 11/05/18 16:29 Temperature 37.0 C Temperature Source Oral Sepsis Recent Fever Within 48 Hours Sepsis Action Taken by Nursing Pulse Rate 89 Pulse Rate [Left Apical] 89 Respiratory Rate 20 Respiratory Effort / Characteristics Respiratory Depth Blood Pressure Blood Pressure [Right Arm] 134/74 Blood Pressure Mean Blood Pressure Mean [Right Arm] 94 Blood Pressure Position [Right Arm] Pulse Oximetry 96 Oxygen Delivery Method Room Air 11/05/18 19:41 Temperature 36.9 C Temperature Source Oral Sepsis Recent Fever Within 48 Hours Sepsis Action Taken by Nursing Pulse Rate Pulse Rate [Left Apical] 78 Respiratory Rate 18 Respiratory Effort / Characteristics Respiratory Depth Blood Pressure Blood Pressure [Right Arm] 132/76 Blood Pressure Mean Blood Pressure Mean [Right Arm] 94 Blood Pressure Position [Right Arm] Right Lateral Pulse Oximetry 97 Oxygen Delivery Method Room Air GENERAL: Awake, alert, chronically ill-appearing, in no distress HENT: Normocephalic, atraumatic. Oropharynx with dry mucous membranes and otherwise unremarkable. EYES: Normal conjunctiva. Sclera non-icteric. NECK: Supple. No nuchal rigidity. FROM. No JVD. RESPIRATORY: Clear to auscultation. CARDIAC: Regular rate, normal rhythm. Extremities warm and well perfused. Pulses equal. ABDOMEN: Soft, non-distended. No tenderness to palpation. No rebound or guarding. No masses. RECTAL: Brown liquid stool, guaiac positive, no melena or red blood. MUSCULOSKELETAL: Chest examination reveals no tenderness. There is no CVA tenderness to palpation. LOWER EXTREMITIES: Calves are equal size bilaterally and non-tender. No edema. No discoloration. Bilateral lower extremities with chronic flexor contractures at hips and knees. Chronic wound to the left lateral gluteal region with chronically protruding femoral trochantor. NEURO: Mild confusion. No sensory or motor deficits from baseline. SKIN: Warm and dry. No jaundice noted. Chronic ulcers to bilateral gluteal region Course 0807: The patient was evaluated in room C02B, and a complete history and physical examination were performed. 0837: I reviewed the patients records for his hospital admission on 10/25/18. The patient was admitted on 10/25/18 with complaints of a fever and decreased urinary output and discharged on 10/30/18. He was treated for a UTI and for an ESBL infection at that time. He was started on a 14 day course of Zosyn. On 10/29/18, his hemoglobin level was 6.6 mg/dL which was thought to be due to chronic disease with infection. He received 1 unit of PRBCs. 1019: I reviewed the patient's case with RAMOS Mcintyre, who will evaluate the patient for further management and care. 1025: I discussed the today's result with the patient. He is amenable to the plan. He will be evaluated for further management and care. Consultations Consultation #1: I reviewed the patient's case with RAMOS Mcintyre, who will evaluate the patient for further management and care. Time: 10:19 Administered Medications Baclofen (Lioresal) 5 mg PO TID [facility] Stop: 12/05/18 13:59 Last Admin: 11/05/18 14:49 Dose: 5 mg Documented by: [id number] Enteral Nutritional Formula (Peptamen 1.5) 1,000 ml PEG UD [facility]; Protocol Stop: 12/05/18 16:59 Last Admin: 11/05/18 18:38 Dose: 1,000 ml Documented by: [id number] Fentanyl (Duragesic) 25 mcg TD Q3D [facility] Stop: 11/19/18 13:59 Last Admin: 11/05/18 14:48 Dose: 25 mcg Documented by: [id number] Ertapenem 1,000 mg/ Sodium (Chloride) 60 mls @ 100 mls/hr IV DAILY@1400 [facility] Stop: 11/08/18 23:59 Last Infusion: 11/05/18 16:00 Dose: 0 mls/hr Documented by: [id number] Admin: 11/05/18 14:49 Dose: 100 mls/hr Documented by: [id number] Miscellaneous (Fentanyl Patch Check Placement) 1 ea N/A QS [facility] Stop: 12/05/18 15:59 Last Admin: 11/05/18 15:12 Dose: 1 ea Documented by: [id number] Discontinued Medications Al Hydrox/Mg Hydrox/Simethicone () 1 dose PO ONE ONE Stop: 11/05/18 09:48 Last Admin: 11/05/18 10:10 Dose: Not Given Documented by: [id number] Famotidine (Pepcid) 20 mg PO NOW ONE Stop: 11/05/18 09:48 Last Admin: 11/05/18 10:10 Dose: Not Given Documented by: [id number] Sodium Chloride (Nss 1000ml) 1,000 mls @ 999 mls/hr IV .Q1H1M [facility] Stop: 11/05/18 09:15 Last Infusion: 11/05/18 09:33 Dose: 0 mls/hr Documented by: [id number] Admin: 11/05/18 08:33 Dose: 999 mls/hr Documented by: [id number] Sodium Chloride (Nss 1000ml) 500 mls @ 999 mls/hr IV .Q31M ONE Stop: 11/05/18 08:46 Last Admin: 11/05/18 08:37 Dose: Not Given Documented by: [id number] Pantoprazole Sodium 40 mg/ (Syringe) 10 mls @ 5 mls/min IV NOW ONE Stop: 11/05/18 10:22 Last Admin: 11/05/18 11:13 Dose: 5 mls/min Documented by: [id number] Sodium Chloride (Nss) 500 mls @ 125 mls/hr IV .Q4H [facility] Stop: 12/05/18 10:29 Last Infusion: 11/05/18 13:23 Dose: 0 mls/hr Documented by: [id number] Admin: 11/05/18 11:13 Dose: 125 mls/hr Documented by: [id number] Ioversol (Optiray 320 100ml) 94 ml IV ONCE PRN PRN Reason: Interaction Checking Stop: 11/09/18 09:40 Last Admin: 11/05/18 09:48 Dose: 94 ml Documented by: [id number] Miscellaneous (Fentanyl Patch Remove & Waste) 1 ea N/A 1359 ONE Stop: 11/05/18 14:00 Last Admin: 11/05/18 14:37 Dose: 1 ea Documented by: [id number] Cosigned by: [id number] Miscellaneous Information (Pharmacy Consult) 1 ea N/A NOW [facility] Stop: 11/05/18 11:11 Last Admin: 11/05/18 13:59 Dose: Not Given Documented by: [id number] Medical Decision Making Differential Diagnosis Differential diagnosis: Etiologies such as esophagitis, variceal bleed, Boerhaaves, [place]-Beckman tear, gastritis, peptic ulcer disease, AVM, inflammatory bowel disease, ischemia, diverticulosis, colitis, malignancy, coagulopathy, thrombocytopenia, fissure, hemorrhoid, epistaxis , as well as others were entertained. Medical Records Attestation: I reviewed the patient's medical records. Home Medications Current Medication List: was personally reviewed by me Laboratory Data Attestation: I reviewed the patient's lab results. Result diagrams: 11/05/18 13:47 11/05/18 08:38 Lab Results 11/05/18 11/05/18 11/05/18 Range/Units 08:22 08:22 08:38 WBC 9.20 (4.8-10.8) K/uL RBC 2.77 L (4.7-6.1) M/uL Hgb 7.7 L (14.0-18.0) g/dL Hct 23.5 L (42-52) % MCV 84.8 (80-100) fL MCH 27.8 (25-34) pg MCHC 32.8 (32-36) g/dL RDW Std Deviation 58.2 H (36.4-46.3) fL RDW Coeff of Lucila 18.8 H (11.5-14.5) % Plt Count 430 H (130-400) K/uL MPV 9.2 (7.4-10.4) fL Immature Gran % (Auto) 0.4 % Neut % (Auto) 75.8 % Lymph % (Auto) 14.6 % Sierra % (Auto) 5.8 % Eos % (Auto) 3.0 % Baso % (Auto) 0.4 % Immature Gran # (Auto) 0.04 H (0.00-0.02) K/uL Neut # (Auto) 6.97 H (1.4-6.5) K/uL Lymph # (Auto) 1.34 (1.2-3.4) K/uL Sierra # (Auto) 0.53 (0.11-0.59) K/uL Eos # (Auto) 0.28 (0-0.5) K/uL Baso # (Auto) 0.04 (0-0.2) K/uL RBC Morphology Unremarkable PT 12.0 (9.0-12.0) Seconds INR 1.2 H (0.9-1.1) Sodium 138 (136-145) mmol/L Potassium 4.3 (3.5-5.1) mmol/L Chloride 105 (98-107) mmol/L Carbon Dioxide 29 (21-32) mmol/L Anion Gap 4.0 (3-11) BUN 24 H (7-18) mg/dl Creatinine 0.62 (0.6-1.4) mg/dl Est Cr Clr Drug Dosing Not Reportable Est GFR ( Amer) 114.9 Est GFR (Non-Af Amer) 99.1 BUN/Creatinine Ratio 39.5 H (10-20) Glucose 101 H (70-99) mg/dl POC Glucose (70-99) Calcium 7.9 L (8.5-10.1) mg/dl Total Bilirubin 0.1 L (0.2-1) mg/dl AST 24 (15-37) U/L ALT 22 (12-78) U/L Alkaline Phosphatase 103 (45-117) U/L Total Protein 6.4 (6.4-8.2) gm/dl Albumin 1.6 L (3.4-5.0) gm/dl Globulin 4.8 H (2.5-4.0) gm/dl Albumin/Globulin Ratio 0.3 L (0.9-2) Lipase 142 (73-393) U/L Urine Color Urine Appearance (Clear) Urine pH (4.5-7.5) Ur Specific [place] (1.000-1.030) Urine Protein (Negative) Urine Glucose (UA) (Negative) Urine Ketones (Negative) Urine Blood (Negative) Urine Nitrite (Negative) Urine Bilirubin (Negative) Urine Urobilinogen (Negative) Ur Leukocyte Esterase (Negative) Urine WBC (Auto) (0-5) /hpf Urine RBC (Auto) (0-4) /hpf U Hyaline Cast (Auto) (0-5) /lpf U Epithel Cells (Auto) (0-5) /lpf Urine Bacteria (Auto) (Negative) Urine Yeast (None Prsent) Nasal Screen MRSA (PCR) (Negative) Blood Type Antibody Screen 11/05/18 11/05/18 11/05/18 Range/Units 08:38 09:20 13:47 WBC (4.8-10.8) K/uL RBC (4.7-6.1) M/uL Hgb 7.7 L (14.0-18.0) g/dL Hct 24.1 L (42-52) % MCV (80-100) fL MCH (25-34) pg MCHC (32-36) g/dL RDW Std Deviation (36.4-46.3) fL RDW Coeff of Lucila (11.5-14.5) % Plt Count (130-400) K/uL MPV (7.4-10.4) fL Immature Gran % (Auto) % Neut % (Auto) % Lymph % (Auto) % Sierra % (Auto) % Eos % (Auto) % Baso % (Auto) % Immature Gran # (Auto) (0.00-0.02) K/uL Neut # (Auto) (1.4-6.5) K/uL Lymph # (Auto) (1.2-3.4) K/uL Sierra # (Auto) (0.11-0.59) K/uL Eos # (Auto) (0-0.5) K/uL Baso # (Auto) (0-0.2) K/uL RBC Morphology PT (9.0-12.0) Seconds INR (0.9-1.1) Sodium (136-145) mmol/L Potassium (3.5-5.1) mmol/L Chloride (98-107) mmol/L Carbon Dioxide (21-32) mmol/L Anion Gap (3-11) BUN (7-18) mg/dl Creatinine (0.6-1.4) mg/dl Est Cr Clr Drug Dosing Est GFR ( Amer) Est GFR (Non-Af Amer) BUN/Creatinine Ratio (10-20) Glucose (70-99) mg/dl POC Glucose (70-99) Calcium (8.5-10.1) mg/dl Total Bilirubin (0.2-1) mg/dl AST (15-37) U/L ALT (12-78) U/L Alkaline Phosphatase (45-117) U/L Total Protein (6.4-8.2) gm/dl Albumin (3.4-5.0) gm/dl Globulin (2.5-4.0) gm/dl Albumin/Globulin Ratio (0.9-2) Lipase (73-393) U/L Urine Color Yellow Urine Appearance Cloudy H (Clear) Urine pH 6.5 (4.5-7.5) Ur Specific [place] 1.013 (1.000-1.030) Urine Protein Negative (Negative) Urine Glucose (UA) Negative (Negative) Urine Ketones Negative (Negative) Urine Blood Trace H (Negative) Urine Nitrite Negative (Negative) Urine Bilirubin Negative (Negative) Urine Urobilinogen Negative (Negative) Ur Leukocyte Esterase 3+ H (Negative) Urine WBC (Auto) >30 H (0-5) /hpf Urine RBC (Auto) 0-4 (0-4) /hpf U Hyaline Cast (Auto) 0 (0-5) /lpf U Epithel Cells (Auto) 0-5 (0-5) /lpf Urine Bacteria (Auto) Negative (Negative) Urine Yeast Budding w/ Hyphae H (None Prsent) Nasal Screen MRSA (PCR) (Negative) Blood Type A Positive Antibody Screen NEGATIVE 11/05/18 11/05/18 11/05/18 Range/Units 16:02 20:20 Unknown WBC (4.8-10.8) K/uL RBC (4.7-6.1) M/uL Hgb (14.0-18.0) g/dL Hct (42-52) % MCV (80-100) fL MCH (25-34) pg MCHC (32-36) g/dL RDW Std Deviation (36.4-46.3) fL RDW Coeff of Lucila (11.5-14.5) % Plt Count (130-400) K/uL MPV (7.4-10.4) fL Immature Gran % (Auto) % Neut % (Auto) % Lymph % (Auto) % Sierra % (Auto) % Eos % (Auto) % Baso % (Auto) % Immature Gran # (Auto) (0.00-0.02) K/uL Neut # (Auto) (1.4-6.5) K/uL Lymph # (Auto) (1.2-3.4) K/uL Sierra # (Auto) (0.11-0.59) K/uL Eos # (Auto) (0-0.5) K/uL Baso # (Auto) (0-0.2) K/uL RBC Morphology PT (9.0-12.0) Seconds INR (0.9-1.1) Sodium (136-145) mmol/L Potassium (3.5-5.1) mmol/L Chloride (98-107) mmol/L Carbon Dioxide (21-32) mmol/L Anion Gap (3-11) BUN (7-18) mg/dl Creatinine (0.6-1.4) mg/dl Est Cr Clr Drug Dosing Est GFR ( Amer) Est GFR (Non-Af Amer) BUN/Creatinine Ratio (10-20) Glucose (70-99) mg/dl POC Glucose 133 H 98 (70-99) Calcium (8.5-10.1) mg/dl Total Bilirubin (0.2-1) mg/dl AST (15-37) U/L ALT (12-78) U/L Alkaline Phosphatase (45-117) U/L Total Protein (6.4-8.2) gm/dl Albumin (3.4-5.0) gm/dl Globulin (2.5-4.0) gm/dl Albumin/Globulin Ratio (0.9-2) Lipase (73-393) U/L Urine Color Urine Appearance (Clear) Urine pH (4.5-7.5) Ur Specific [place] (1.000-1.030) Urine Protein (Negative) Urine Glucose (UA) (Negative) Urine Ketones (Negative) Urine Blood (Negative) Urine Nitrite (Negative) Urine Bilirubin (Negative) Urine Urobilinogen (Negative) Ur Leukocyte Esterase (Negative) Urine WBC (Auto) (0-5) /hpf Urine RBC (Auto) (0-4) /hpf U Hyaline Cast (Auto) (0-5) /lpf U Epithel Cells (Auto) (0-5) /lpf Urine Bacteria (Auto) (Negative) Urine Yeast (None Prsent) Nasal Screen MRSA (PCR) Positive A (Negative) Blood Type Antibody Screen Imaging Data Radiologist's Impression: Radiology results as stated below per my review and the radiologist's interpretation: CT abd pelvis IV con only CLINICAL HISTORY: 73 years-old Male presenting with hematochezia. TECHNIQUE: Multidetector CT of the abdomen and pelvis was performed after the administration of intravenous contrast. IV contrast: 94 mL of Optiray 320. One or more dose lowering techniques were used consistent with the principles of ALARA (as low as reasonably achievable), including automatic exposure control, mA or kV adjustment to individual patient size, and/or use of iterative reconstruction. COMPARISON: 08/12/2018. CT DOSE (mGy.cm): The estimated cumulative dose is 890.95 mGy.cm. 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 Suboptimal positioning due to contractures. Image quality is significantly degraded by positioning of the arms at the sides resulting in hardening artifact. Lung bases: Multichamber enlargement of the heart. Coronary artery calcification. Small bilateral pleural effusions. Extensive dependent consolidation volume loss likely atelectasis. Respiratory motion artifact degrades evaluation of the lung bases. Prominent bulla or loculated pneumothorax at the left lung base (series 3 image 19). Liver: Congenital hypoplasia of the medial segments of the left hepatic lobe. No focal lesion. Patent hepatic vasculature. Biliary: Mild to moderate intrahepatic and mild extra hepatic biliary ductal dilatation. Peripheral mural calcification of the gallbladder consistent with a porcelain gallbladder. Pancreas: Moderate parenchymal atrophy. Spleen: Normal. Adrenal glands: Normal. Kidneys and ureters: Mild pelvocaliectasis bilaterally without convincing evidence of obstruction. Renal parenchyma grossly normal bilaterally. Bladder: Circumferential wall thickening of the bladder with an abnormal configuration and mucosal hyperenhancement. A Childs catheter is in place. Pelvic organs: Prostate and seminal vesicles normal. Bowel: Wall thickening of the rectum with mild distention resulting from a moderate stool burden. Similar stool burden is noted throughout the colon. Limited assessment of the bowel due to image quality degradation and lack of oral contrast. A gastrostomy tube is in place. Peritoneal cavity: No free fluid or intraperitoneal gas. Lymph nodes: No gross lymphadenopathy. Vasculature: Atherosclerosis of the normal caliber abdominal aorta. IVC patent with an infrarenal IVC filter. Abdominal wall: Diffuse body wall edema. Cachexia is suggested. Musculoskeletal: Chronic severe deformity of the right hip similar to prior exam with persistent presence of intra-articular gas tracking from the skin surface. Packing material is in place. There is an associated a decubitus ulcer. Decubitus ulcers at the right ischium and sacrum also noted. Lesser degree of deformity and chronic subluxation of the left hip present. Additional decubitus ulcer at the anterolateral aspect of the left hip associated with the greater trochanter. Degenerative changes of the spine. IMPRESSION: 1. Chronic severe deformity of the right hip with associated the decubitus ulcer with gas tracking to the right hip joint. This is presumably associated with chronic osteomyelitis/chronic septic arthritis. Additional decubitus ulcers as above also similar to prior. 2. Anasarca and cachexia. 3. Findings suggest neurogenic bladder with cystitis. Correlate with urinalysis as this is likely infectious. 4. Mild distention of the urinary collecting systems without convincing evidence of obstruction. 5. Wall thickening of the rectum with moderate stool burden may suggest developing stercoral colitis. 6. Nonspecific chronic intrahepatic and extrahepatic biliary ductal dilatation. 7. Porcelain gallbladder. 8. Extensive bibasilar atelectasis. Electronically signed by: Carmelo Adhikari M.D. 11/05/2018 10:16 AM ECG Data Attestation: I personally reviewed and interpreted this ECG as follows: Indication: other (hematochezia) Rate (beats per minute): 79 Rhythm: normal sinus Findings: + other (significant baseline artifact), + LBBB and + left axis deviation; no ST depression, no ST elevation and no acute ischemic change Blood Pressure Blood Pressure Findings: Normal blood pressure MDM Narrative The patient is a pleasant 73-year-old gentleman with a past medical history of seizure-like personality disorder, CAD, CHF, DVT, chronic decubitus ulcers due to prolonged immobilization with flexor deformities of the lower extremities history of treatment for osteomyelitis of the femoral head per hpi. She was recently last week for ESBL UTI and also was noted to have a hemoglobin of 6.6 which was believed to due to chronic disease and was transfused 1 unit of PRBCs prior to discharge now presents to emergency department with single episode of hematochezia per hpi. Patient is a poor historian. On arrival chronically ill-appearing but in no acute distress, afebrile stable vital signs. Rectal exam demonstrates liquid brown stool without gross blood or melena but is guaiac positive. EKG without evidence of acute ischemia. H/H 7.7/24.1, which ostensibly is stable after the patient's transfusion prior to his discharge, though could represent a component of hemoconcentration given his platelets are 430. Chemistry without acidosis. LFTs unremarkable. UA with 3+ LE and WBC> 30 without bacteria from the patient's Childs catheter in the setting of being treated for ESBL UTI from last admission. CT abdomen pelvis demonstrates wall thickening of the rectum with moderate stool burden may suggest developing stercoral colitis. Otherwise there is evidence of the patient's chronic osteomyelitis as well as known urinary infection. The patient's laboratory results appears stable given the patient's episode of hematochezia it is reasonable to admit the patient for further monitoring and likely GI consultation. Case was discussed with Irwin Mcintyre PA-C, who will evaluate the patient for admission. Impression & Plan Hematochezia Discharge Plan Visit Data *Final* Discharge Date/Time: 11/05/18 12:55 Chief Complaint: Rectal Bleed Other Complaint: GI Assessment ED Provider: Mohit Alford Discharge Problem: Hematochezia Patient Disposition: Admitted As Inpatient Discharge Instructions Interventions: ED Discharge Assessment Last Done: 11/05/18 12:55 The scribe's documentation has been prepared under my direction and personally reviewed by me in its entirety. I confirm that the note above accurately reflects all work, treatment, procedures, and medical decision making performed by me.
[2018-11-05 08:52] LABS: Basophils # (auto) 0.04 K/uL (0-0.2); Basophils % (auto) 0.4 %; Eosinophils # (auto) 0.28 K/uL (0-0.5); Hematocrit (blood only) 23.5 % (42-52); Hemoglobin 7.7 g/dL (14.0-18.0); Immature Granulocytes # (auto) 0.04 K/uL (0.00-0.02); Immature Granulocytes % (auto) 0.4 %; Lymphocytes # (auto) 1.34 K/uL (1.2-3.4); Lymphocytes % (auto) 14.6 %; Mean Corpuscular Hgb Conc 32.8 g/dL (32-36); Mean Corpuscular Volume 84.8 fL (80-100); Mean Platelet Volume 9.2 fL (7.4-10.4); Monocytes # (auto) 0.53 K/uL (0.11-0.59); Monocytes % (auto) 5.8 %; Neutrophils # (auto) 6.97 K/uL (1.4-6.5); Neutrophils % (auto) 75.8 %; Platelet Count 430 K/uL (130-400); RDW Coefficient of Variation 18.8 % (11.5-14.5); RDW Standard Deviation 58.2 fL (36.4-46.3); Red Blood Count 2.77 M/uL (4.7-6.1)
[2018-11-05 09:02] LABS: INR 1.2 (0.9-1.1)
[2018-11-05 09:09] LABS: Alanine Aminotransferase 22 U/L (12-78); Albumin Level 1.6 gm/dl (3.4-5.0); Aspartate Aminotransferase 24 U/L (15-37); BUN Creatinine Ratio 39.5 (10-20); Blood Urea Nitrogen 24 mg/dl (7-18); Calcium 7.9 mg/dl (8.5-10.1); Carbon Dioxide 29 mmol/L (21-32); Chloride 105 mmol/L (98-107); Est GFR (African American) 114.9; Est GFR (Non-African American) 99.1; Glucose 101 mg/dl (70-99); Potassium 4.3 mmol/L (3.5-5.1); Sodium 138 mmol/L (136-145)
[2018-11-05 09:12] LABS: Albumin Globulin Ratio 0.3 (0.9-2); Alkaline Phosphatase 103 U/L (45-117); Bilirubin,Total 0.1 mg/dl (0.2-1); Globulin 4.8 gm/dl (2.5-4.0); Total Protein 6.4 gm/dl (6.4-8.2)
[2018-11-05 09:22] LABS: RBC Morphology Unremarkable
[2018-11-05 09:29] LABS: Appearance Urine Cloudy (Clear); Bacteria Urine Automated Negative (Negative); Bilirubin Urine Negative (Negative); Blood Urine Trace (Negative); Color Urine Yellow; Epithelial Cell Urine Auto 0-5 /lpf (0-5); Glucose Urine UA Negative (Negative); Ketones Urine Negative (Negative); Leukocyte Esterase Urine 3+ (Negative); Nitrite Urine Negative (Negative); Protein Urine Negative (Negative); Specific Gravity Urine 1.013 (1.000-1.030); Urobilinogen Urine Negative (Negative); WBC Urine Automated >30 /hpf (0-5); pH Urine 6.5 (4.5-7.5)
[2018-11-05 09:40] LABS: Cast Urine Automated 0 /lpf (0-5); RBC Urine Automated 0-4 /hpf (0-4)
[2018-11-05] MEDS ORDERED: IOVERSOL 100ml IV PRN (09:41)
[2018-11-05] MEDS ORDERED: GI COCKTAIL ED USE PO ONE (09:47)
[2018-11-05] MEDS ORDERED: FAMOTIDINE 20 MG TAB PO ONE (09:47)
--- NOTE | 2018-11-05 10:17 | CT Scan Report ---
CT abd pelvis IV con only CLINICAL HISTORY: 73 years-old Male presenting with hematochezia. TECHNIQUE: Multidetector CT of the abdomen and pelvis was performed after the administration of intra venous contrast. IV contrast: 94 mL of Optiray 320. One or more dose lowering techniques were used co nsistent with the principles of ALARA (as low as reasonably achievable), including automatic exposure control, mA or kV adjustment to individual patient size, and/or use of iterative reconstruction. COMPARISON: 08/12/2018. CT DOSE (mGy.cm): The estimated cumulative dose is 890.95 mGy.cm. FINDINGS: [employer] Supervisor topogram: IVC filter in place. Suboptimal positioning due to contractures. Image quality is significantly degraded by positioning of the arms at the sides resulting in hardenin g artifact. Lung bases: Multichamber enlargement of the heart. Coronary artery calcification. Small bilateral ple ural effusions. Extensive dependent consolidation volume loss likely atelectasis. Respiratory motion artifact degrades evaluation of the lung bases. Prominent bulla or loculated pneumothorax at the left lung base (series 3 image 19). Liver: Congenital hypoplasia of the medial segments of the left hepatic lobe. No focal lesion. Patent hepatic vasculature. Biliary: Mild to moderate intrahepatic and mild extra hepatic biliary ductal dilatation. Peripheral m ural calcification of the gallbladder consistent with a porcelain gallbladder. Pancreas: Moderate parenchymal atrophy. Spleen: Normal. Adrenal glands: Normal. Kidneys and ureters: Mild pelvocaliectasis bilaterally without convincing evidence of obstruction. Re nal parenchyma grossly normal bilaterally. Bladder: Circumferential wall thickening of the bladder with an abnormal configuration and mucosal hy perenhancement. A Childs catheter is in place. Pelvic organs: Prostate and seminal vesicles normal. Bowel: Wall thickening of the rectum with mild distention resulting from a moderate stool burden. Sim ilar stool burden is noted throughout the colon. Limited assessment of the bowel due to image quality degradation and lack of oral contrast. A gastrostomy tube is in place. Peritoneal cavity: No free fluid or intraperitoneal gas. Lymph nodes: No gross lymphadenopathy. Vasculature: Atherosclerosis of the normal caliber abdominal aorta. IVC patent with an infrarenal IVC filter. Abdominal wall: Diffuse body wall edema. Cachexia is suggested. Musculoskeletal: Chronic severe deformity of the right hip similar to prior exam with persistent pres ence of intra-articular gas tracking from the skin surface. Packing material is in place. There is an associated a decubitus ulcer. Decubitus ulcers at the right ischium and sacrum also noted. Lesser de gree of deformity and chronic subluxation of the left hip present. Additional decubitus ulcer at the anterolateral aspect of the left hip associated with the greater trochanter. Degenerative changes of the spine. IMPRESSION: 1. Chronic severe deformity of the right hip with associated the decubitus ulcer with gas tracking t o the right hip joint. This is presumably associated with chronic osteomyelitis/chronic septic arthri tis. Additional decubitus ulcers as above also similar to prior. 2. Anasarca and cachexia. 3. Findings suggest neurogenic bladder with cystitis. Correlate with urinalysis as this is likely in fectious. 4. Mild distention of the urinary collecting systems without convincing evidence of obstruction. 5. Wall thickening of the rectum with moderate stool burden may suggest developing stercoral colitis . 6. Nonspecific chronic intrahepatic and extrahepatic biliary ductal dilatation. 7. Porcelain gallbladder. 8. Extensive bibasilar atelectasis. Electronically signed by: Carmelo Adhikari M.D. 11/05/2018 10:16 AM
[2018-11-05] MEDS ORDERED: PANTOprazole 40 MG in SYRINGE 0 ML IV ONE (10:21)
[2018-11-05] MEDS ORDERED: SODIUM CHLORIDE 0.9% 500 ML IV SCH (10:30)
[2018-11-05] MEDS ORDERED: CONSULT PHARMACY STA (11:10)
--- NOTE | 2018-11-05 11:53 | History & Physical Report ---
Date of Service November 05, 2018 Assessment & Plan (1) Hematochezia: This is a 73-year-old male who has a complex medical history including HTN, chronic systolic CHF secondary to ischemic heart disease, recurrent UTI MDR, chronic anemia baseline hemoglobin 8, multiple chronic decubitus wounds, chronic right hip osteomyelitis/septic arthritis with history of right femoral head resection and I&D, hypothyroidism, history of DVT status post IVC filter who presents to [facility] secondary to large bowel with hematochezia x1 this morning. In ED patient remained hemodynamic stable. Hemoglobin/hematocrit was 7.7 and 23.5 He was guaiac positive. In ED he was given 1 L fluid bolus, IV Protonix, IV famotidine -admit to med/surg telemetry -Continue IV PPI BID -Trend H/H q8hrs -Consult GI, last had EGD for peg placement 09/2018, appreciate their recommendations -He is on eliquis for hx of DVT; hold this for now and hold off on chemoprophylaxis for VTE -continue peg tube feedings and po meds (2) Anemia: Anemia probably multifactorial, contributing factors including malnutrition and infections. Continue Fe. Monitor H/H. Transfuse PRN. Labs 07/17/18: Fe 25, ferritin 277, folate 13, B12 531. (3) UTI (urinary tract infection): -Continue IV Invanz, to finish 11/08/18 -contact precautions for ESBL -additional urine culture pending (4) Coronary artery disease: Denies chest pain. No acute EKG changes. Continue metoprolol. History of dyslipidemia, but statin therapy probably not indicated at this time due to severe protein-calorie malnutrition. (5) Chronic systolic CHF (congestive heart failure): History of chronic left ventricular systolic heart failure due to ischemic heart disease. Currently compensated at time of admission Received IVF 1L while in ED, monitor volume status closely Not or IRVIN/ARB or lasix (6) GERD (gastroesophageal reflux disease): -continue PPI (7) Hypothyroidism: -continue levothyroxine (8) Osteomyelitis: Chronic secondary to multiple chronic wounds History of right hip I&D with femoral head extraction Complete course of IV antibiotics for possible vancomycin and ertapenem (9) Schizoid personality disorder: -Mood is stable, is not on any antipsychotics (10) Decubitus ulcer: Multiple chronic skin ulcers, some dating back 2-3 years. Several chronic skin ulcers including sacrum, bilat hips, right buttock, left lateral malleous. Consult Wound Care Nursing. Continue local care. Reposition q [address] Special[address]. Optimize nutritional status. (11) Severe protein-calorie malnutrition: Severe protein-calorie malnutrition. Wt 49 kg, Continue PEG tube feedings for nutritional/wound support Continue nutrional support orally and via PEG. Consult Nutrition. (12) Chronic pain: -Continue fentanyl patch, oxycodone/tramadol as needed (13) HTN (hypertension): Blood pressure stable continue metoprolol (14) Discharge planning issues: -case management consulted, return to [facility] (15) DVT prophylaxis: History DVT 2018. Status post IVC filter. Anticoagulation initiated March 2018 with warfarin and transitioned to apixaban Hold apixaban secondary to concern for GI bleed Full Code Disposition: D/C to [facility] when able Patient seen and examined in collaboration with Dr. Reyes, please see addendum Stating 11/06/18 patient will be under the care of Dr. Smith History of Present Illness Chief Complaint: Hematochezia x 1 day. Primary Care Provider: [facility] This is a 73-year-old male who has a complex medical history including HTN, chronic systolic CHF secondary to ischemic heart disease, recurrent UTI MDR, chronic anemia baseline hemoglobin 8, multiple chronic decubitus wounds, chronic right hip osteomyelitis/septic arthritis with history of right femoral head resection and I&D, hypothyroidism, history of DVT status post IVC filter who presents to [facility] secondary to large bowel with hematochezia x1 this morning. Patient resides at [facility]. He has had multiple recurrent hospitalizations over the last year. Initially admitted at [facility] February 2018 for septic shock secondary to extensive decubitus ulcers with maggot infiltration.Patient discharged to LTAC March 2018. Left lower extremity DVT noted during LTAC stay. Coumadin initiated. Patient transferred to [facility] in [place] April 2018. Readmitted back to [place] secondary to Right femoral neck noted to be exposed along w/ bilateral thigh buttock and lower extremity ulcers during stay at the longterm. Right thigh wound was unstageable with R femoral head exposed through gaping wound, left thigh wound had left femoral head exposed. Patient admitted with a diagnosis of osteomyelitis and chronic wounds. Patient subsequently underwent I&D of decubiti wounds and right femoral head resection. Polymicrobial operative cultures grew Enterococcus species, MSSA, gram-negative rods and anaerobes. Patient completed ceftriaxone metronidazole and vancomycin antibiotic courses via PICC line until June 2018. Patient unable to follow-up with [facility] surgeon (Dr. Coelho) postop due to financial constraints posed by transportation difficulties from [place] to [place] as per patient's brother. Admitted to [facility] 08/11-08/17/2018 secondary to severe sepsis. Had EGD on 09/25/18 with PEG placed for nutritional support given multiple wounds. 3/4 to 3/8 mm with ZARA 10/25-10/30 admitted to [facility] secondary to ESBL UTI discharged on IV Invanz for additional 10 days. He continues on IV Invanz therapy. Nursing staff at nursing facility noted large BM this morning which included hematochezia. At that time patient was hemodynamically stable but given multiple comorbidities it was recommended he be transferred to ED. According to patient currently he feels, "fine." He denies any fever, chills, sweats, lightheadedness, dizziness, chest pain, shortness of breath, hemoptysis, nausea, vomiting, diarrhea, abdominal pain. He does elicit to having some back pain secondary to current position. He does have chronic wounds which he states are treated twice a day. Spoke with [facility] nursing staff. Pt currently receiving PEG tube feedings for nutritional support but continues to take meds orally and eat. Allergies Allergy/AdvReac Type Severity Reaction Status Date / Time iodine Allergy Unknown Unknown Verified 10/25/18 05:14 onion AdvReac Intermediate vomitting Verified 10/25/18 05:14 Home Medications Home Medications Medication Instructions Recorded Confirmed Type Cholestyramine Light 4 g PO BID 09/16/18 11/05/18 History Eliquis 5 mg PO BID 09/16/18 11/05/18 History Enema 197 ml [place] DAILY PRN 09/16/18 11/05/18 History baclofen 5 mg PO TID 09/16/18 11/05/18 History bisacodyl 10 mg [place] DAILY PRN 09/16/18 11/05/18 History divalproex 4 cap PO BID 09/16/18 11/05/18 History ergocalciferol (vitamin D2) 50,000 unit PO 2XWK 09/16/18 11/05/18 History ferrous sulfate 325 mg PO BID 09/16/18 11/05/18 History folic acid 1 mg PO DAILY 09/16/18 11/05/18 History levothyroxine 1 tab PO DAILY 09/16/18 11/05/18 History magnesium hydroxide [Milk of 30 ml PO DAILY PRN 09/16/18 11/05/18 History Magnesia] melatonin 3 mg PO HS 09/16/18 11/05/18 History thiamine HCl (vitamin B1) 100 mg PO DAILY 09/16/18 11/05/18 History tramadol 50 mg PO Q6H PRN 09/16/18 11/05/18 History vitamin B complex 1 tab PO DAILY 09/16/18 11/05/18 History Probiotic (S.boulardii) 250 mg PO BID 10/07/18 11/05/18 History Stress Formula with Zinc 1 tab PO DAILY 10/07/18 11/05/18 History acetaminophen 650 mg PO Q6H PRN MDD 3gm/24hr 10/07/18 11/05/18 History acetaminophen [Tylenol] 650 mg PO Q6H PRN MDD 3g/24hr 10/07/18 11/05/18 History docusate sodium [Docu] 100 mg PO BID 10/07/18 11/05/18 History ertapenem 1 gm IV DAILY #10 ea 10/29/18 11/05/18 Rx fentanyl 25 mcg TRANSDERMAL Q3D #5 ea 10/29/18 11/05/18 Rx oxycodone 5 mg PO Q6 PRN #20 tab 10/29/18 11/05/18 Rx metoprolol succinate 25 mg PO DAILY 11/05/18 11/05/18 History pantoprazole 40 mg PO DAILY 11/05/18 11/05/18 History Past Med/Surg History Medical History Coronary artery disease (Chronic) s/p [place] 2007 Chronic systolic CHF (congestive heart failure) (Chronic) GERD (gastroesophageal reflux disease) (Chronic) Hypothyroidism (Chronic) Anxiety (Chronic) Schizoid personality disorder (Chronic) Decubitus ulcer (Chronic) multiple, chronic Osteomyelitis (Acute) right femoral head Aug 2018 treated with 6 wks vanco + ertapenem Wound infection (Acute) Pseudomonas PEG site October 2018 History of ESBL E. coli infection (Resolved) Aug 2018, + blood and urine cultures Urethral trauma (Acute) Aug 2018. Childs cath. Severe protein-calorie malnutrition (Chronic) Dyslipidemia (Chronic) Chronic pain (Chronic) History of DVT (deep vein thrombosis) (Chronic) LL2017 Anxiety (Chronic) HTN (hypertension) (Chronic) Hypothyroidism (Chronic) GERD (gastroesophageal reflux disease) (Chronic) Anemia (Chronic) Schizoid personality disorder (Chronic) Myocardial infarction (Chronic) Dyslipidemia (Chronic) History of electroconvulsive therapy (Chronic) History of Clostridium difficile colitis (Chronic) Bacteremia C. difficile colitis DVT (deep venous thrombosis) Depression Esophagitis Childs catheter in place Iron deficiency Osteomyelitis Pressure ulcer of ankle, right, unstageable Pressure ulcer of sacral region, stage 4 Surgical History History of appendectomy (Chronic) Status post insertion of inferior vena caval filter (Chronic) Status post insertion of percutaneous endoscopic gastrostomy (PEG) tube (Chronic) Sep 2018 S/P PICC central line placement Family History Other Family history non-contributory Social History Preferred Language: [place] Communication Ability: Impaired Application Lead Required: No Beliefs That Will Affect Care: None Current Living Situation: Long-Term Current Living Situation Comment: [facility] Other Information That Helps Us Care for You: No Feels Safe at Home: Yes Safety Concerns: Feels Safe At This Time Smoking Status: Former smoker Hx Alcohol Use: No Hx Substance Use: No Review of Systems All systems reviewed & are unremarkable except as noted in HPI & below Physical Exam Vital Signs (Past 24 Hours): Last Vital Signs Temp 37 C 11/05/18 07:53 Pulse 76 11/05/18 11:19 Resp 16 11/05/18 11:19 BP 117/66 11/05/18 11:19 Pulse Ox 97 11/05/18 11:19 Physical Exam: Gen: Chronically ill male, lying in bed in contracted position, NAD, pleasant, conversing easily Head: Normocephalic, Atraumatic Eyes: Sclera normal, no conjunctival injection, PERRLA, EOMI ENT: Gross hearing intact, normal pharynx, mucous membranes dry Neck: supple, no adenopathy, No JVD, no bruit, Resp: Clear to auscultation b/l, no wheeze, rales, rhonchi. Normal insp/exp effort, no accessory muscle use CV: Regular rate, regular rhythm, 1/6 HUA noted cardiac apex, no rub, gallop, or ectopy Abd: +BS x 4, soft, nontender, nondistended, + Peg, no surrounding erythema or drainage Musculoskeletal:+ contractures, limited AROM Extremities: No edema bilaterally, multiple wounds noted b/l lower extremities and sacrum, contractures noted, +PICC Skin: warm, dry, no rash, negative turgor, cap refill < 2sec Neuro: Alert and oriented x 3, speech normal, good mood/affect, cran nerve 2-12 intact grossly : deferred Results & Data Laboratory Results Short CBC 11/05/18 Range/Units 08:22 WBC 9.20 (4.8-10.8) K/uL Hgb 7.7 L (14.0-18.0) g/dL Hct 23.5 L (42-52) % Plt Count 430 H (130-400) K/uL BMP 11/05/18 08:38 Sodium 138 Potassium 4.3 Chloride 105 Carbon Dioxide 29 BUN 24 H Creatinine 0.62 Glucose 101 H Calcium 7.9 L Liver Function 11/05/18 Range/Units 08:38 Total Bilirubin 0.1 L (0.2-1) mg/dl AST 24 (15-37) U/L ALT 22 (12-78) U/L Alkaline Phosphatase 103 (45-117) U/L Albumin 1.6 L (3.4-5.0) gm/dl Urine 11/05/18 Range/Units 09:20 Urine Color Yellow Urine Appearance Cloudy H (Clear) Urine pH 6.5 (4.5-7.5) Ur Specific [place] 1.013 (1.000-1.030) Urine Protein Negative (Negative) Urine Glucose (UA) Negative (Negative) Diagnostic Findings CT abd/pelvis: IMPRESSION: 1. Chronic severe deformity of the right hip with associated the decubitus ulcer with gas tracking to the right hip joint. This is presumably associated with chronic osteomyelitis/chronic septic arthritis. Additional decubitus ulcers as above also similar to prior. 2. Anasarca and cachexia. 3. Findings suggest neurogenic bladder with cystitis. Correlate with urinalysis as this is likely infectious. 4. Mild distention of the urinary collecting systems without convincing evidence of obstruction. 5. Wall thickening of the rectum with moderate stool burden may suggest developing stercoral colitis. 6. Nonspecific chronic intrahepatic and extrahepatic biliary ductal dilatation. 7. Porcelain gallbladder. 8. Extensive bibasilar atelectasis. Medications Administered Sodium Chloride (Nss) 500 mls @ 125 mls/hr IV .Q4H DIOR Stop: 12/05/18 10:29 Last Admin: 11/05/18 11:13 Dose: 125 mls/hr Documented by: [id number] Ioversol (Optiray 320 100ml) 94 ml IV ONCE PRN PRN Reason: Interaction Checking Stop: 11/09/18 09:40 Last Admin: 11/05/18 09:48 Dose: 94 ml Documented by: [id number] Discontinued Medications Al Hydrox/Mg Hydrox/Simethicone () 1 dose PO ONE ONE Stop: 11/05/18 09:48 Last Admin: 11/05/18 10:10 Dose: Not Given Documented by: [id number] Famotidine (Pepcid) 20 mg PO NOW ONE Stop: 11/05/18 09:48 Last Admin: 11/05/18 10:10 Dose: Not Given Documented by: [id number] Sodium Chloride (Nss 1000ml) 1,000 mls @ 999 mls/hr IV .Q1H1M DIOR Stop: 11/05/18 09:15 Last Infusion: 11/05/18 09:33 Dose: 0 mls/hr Documented by: [id number] Admin: 11/05/18 08:33 Dose: 999 mls/hr Documented by: [id number] Sodium Chloride (Nss 1000ml) 500 mls @ 999 mls/hr IV .Q31M ONE Stop: 11/05/18 08:46 Last Admin: 11/05/18 08:37 Dose: Not Given Documented by: [id number] Pantoprazole Sodium 40 mg/ (Syringe) 10 mls @ 5 mls/min IV NOW ONE Stop: 11/05/18 10:22 Last Admin: 11/05/18 11:13 Dose: 5 mls/min Documented by: [id number] ECG Rate (beats per minute): 79 Rhythm: normal sinus Findings: + RBBB and + prolonged QT (490ms) Code Status & VTE Plan Code Status Full Code, Discussed with Brother and patient VTE Prophylaxis Plan VTE Prophylaxis will be ordered: No Reason for no VTE drug order: Contraindicated Reason for no VTE mechanical prophylaxis: Contraindicated Supervising Physician Co-Signing Physician Notes Attending addendum The patient was seen and examined in medical telemetry unit He denies any complaints and wanted to have food He denies any chest pain, shortness of breath, any abdominal pain, nausea or vomiting, any problem with his urine and about having On examination Communicating reasonably with mood Hemodynamically stable Chest-clear to auscultate bilaterally Heart-S1-S2 , regular Abdomen has PEG tube in place-, nontender Extremities-has flexor deformities of the lower extremities. Has multiple decubiti ulcers Involving the sacrum, hips and buttocks [employer]-alert and awake Admission labs and imaging studies reviewed Admitted with hematochezia complicated by sacral decubiti ulcers Appreciate GI input and recommendation We will hold Eliquis for today and if there is no significant drop in H&H tomorrow,it can be restarted Agree with assessment and plan as outlined above by Gayatri Reyes (1) UTI (urinary tract infection) Hematuria presence: without hematuria Urinary tract infection type: site unspecified Qualified Code(s): N39.0 - Urinary tract infection, site not specified (2) Chronic pain Chronic pain type: chronic pain syndrome Qualified Code(s): G89.4 - Chronic pain syndrome (3) Coronary artery disease Associated angina: without angina Coronary Disease-Associated Artery/Lesion type: [place] artery [place] vs. transplanted heart: [place] heart Qualified Code(s): I25.10 - Atherosclerotic heart disease of [place] coronary artery without angina pectoris (4) Anemia Anemia type: other cause Other causes of anemia: nutritional, protein deficiency Qualified Code(s): D53.0 - Protein deficiency anemia (5) Hypothyroidism Hypothyroidism type: other Qualified Code(s): E03.8 - Other specified hypothyroidism (6) GERD (gastroesophageal reflux disease) Esophagitis presence: without esophagitis Qualified Code(s): K21.9 - Gastro- esophageal reflux disease without esophagitis (7) HTN (hypertension) Hypertension type: essential hypertension Qualified Code(s): I10 - Essential (primary) hypertension
--- NOTE | 2018-11-05 12:01 | Gastrointestinal Consultation ---
Date of Consultation November 05, 2018 Assessment & Plan (1) Anemia: (2) Hematochezia: Pt is a 73 y/o w multiple medical comorbidities as noted above, seen for hematochezia and anemia. Only one episode of rectal bleeding witnessed prior to ED arrival, rectal exam in ED showed brown stool w guaiac positive. H/H didn't drop significantly from baseline. CT abd/pelvis did show rectal area thickening w stool burden and suggestion of stercoral colitis. - PPI IV BID - Defer EGD evaluation given on true melena signs and his significant complicated medical hx - Suggest pt to be on daily bowel regimen such as Miralax 17g daily for a few days to help w constipation and unloading of stool burden in rectal area. May add gentle water enema in small volumes if not successful to produce BM. - Monitor H/H and transfuse prn - Consider outpt colonoscopy eval if continues to have rectal bleeding and once his other medical issues are resolved. - Please recall GI if needed. Supervising Physician Co-Signing Physician Notes I saw and evaluated the patient in the emergency room. We are consulted with a question with regard to hematochezia. The patient had a [facility]. In the emergency room he is found to have brown stool that was heme positive. Unfortunately due to his mental status the patient is unable to give much historical information. The nursing staff that is available during my evaluation tell me that he has had only brown stool in the emergency room today. He does have a recent course of medical problems which are very significant to include an open wound from ulcerations. Physical exam : Thin male, disheveled appearing Abdomen soft, PEG tube intact Impression: Patient with scant hematochezia likely related to internal/external hemorrhoids. Another potential cause could be the Stur[place] ulcer as suggested on his CT scan. We would suggest beginning a bowel regimen to include use of Colace 200 mg daily in addition to MiraLAX 17 g per day. As the patient has brown stool urgent endoscopy is probably not needed at the present time. We would certainly agree with outpatient colonoscopy once his other medical issues have been maximized further. History of Present Illness Reason for Consultation: Rectal bleeding, guaiac + Requesting Physician: Gayatri Rivera PA-C Attending Physician: Dr. Aislinn Fairbanks History of Present Illness Pt is a 73 year old male who presents to the Emergency Room with complaints of an episode of rectal bleeding that started this morning that's witnessed by [facility] staff members. No BMs witnessed in the ED since he arrived. ED physician did rectal exam which revealed brown stool but guaiac positive. Pt has multiple medical comorbidities including UTI, renal insufficiency, anemia, osteomyelitis, multiple decubitus ulcer, anxiety, Schizophrenia, hx of DVT, dyslipidemia, chronic pain, GERD, hypothyroidism. PEG placement 09/25/[address] Matthews for inability to eat PO. However pt told me today that he's only receiving bolus feeding BID via PEG, and he usually will eat by mouth. Labs reviewed: H/H 7.7/23.5, plt 430. INR 1.2. Hgb at baseline 8-9. LFTs, Lipase normal. CT abd/pelvis w/ contrast showed multiple chronic osteomyelitis on R hip joint, septic arthritis, anasarca. Poreclain gallbladder w chronic intra/extrahepatic biliary dilation. Neurogenic bladder w cystitis, mild urinary collecting system distension w/o obstruction. There's rectal wall thickeing w moderate stool burden suggestive of stercoral colitis. Allergies Allergy/AdvReac Type Severity Reaction Status Date / Time iodine Allergy Unknown Unknown Verified 10/25/18 05:14 onion AdvReac Intermediate vomitting Verified 10/25/18 05:14 Home Medications Home Medications Medication Instructions Recorded Confirmed Type Cholestyramine Light 4 g PO BID 09/16/18 11/05/18 History Eliquis 5 mg PO BID 09/16/18 11/05/18 History Enema 197 ml IN DAILY PRN 09/16/18 11/05/18 History baclofen 5 mg PO TID 09/16/18 11/05/18 History bisacodyl 10 mg IN DAILY PRN 09/16/18 11/05/18 History divalproex 4 cap PO BID 09/16/18 11/05/18 History ergocalciferol (vitamin D2) 50,000 unit PO 2XWK 09/16/18 11/05/18 History ferrous sulfate 325 mg PO BID 09/16/18 11/05/18 History folic acid 1 mg PO DAILY 09/16/18 11/05/18 History levothyroxine 1 tab PO DAILY 09/16/18 11/05/18 History magnesium hydroxide [Milk of 30 ml PO DAILY PRN 09/16/18 11/05/18 History Magnesia] melatonin 3 mg PO HS 09/16/18 11/05/18 History thiamine HCl (vitamin B1) 100 mg PO DAILY 09/16/18 11/05/18 History tramadol 50 mg PO Q6H PRN 09/16/18 11/05/18 History vitamin B complex 1 tab PO DAILY 09/16/18 11/05/18 History Probiotic (S.boulardii) 250 mg PO BID 10/07/18 11/05/18 History Stress Formula with Zinc 1 tab PO DAILY 10/07/18 11/05/18 History acetaminophen 650 mg PO Q6H PRN MDD 3gm/24hr 10/07/18 11/05/18 History acetaminophen [Tylenol] 650 mg PO Q6H PRN MDD 3g/24hr 10/07/18 11/05/18 History docusate sodium [Docu] 100 mg PO BID 10/07/18 11/05/18 History ertapenem 1 gm IV DAILY #10 ea 10/29/18 11/05/18 Rx fentanyl 25 mcg TRANSDERMAL Q3D #5 ea 10/29/18 11/05/18 Rx oxycodone 5 mg PO Q6 PRN #20 tab 10/29/18 11/05/18 Rx metoprolol succinate 25 mg PO DAILY 11/05/18 11/05/18 History pantoprazole 40 mg PO DAILY 11/05/18 11/05/18 History Patient History Medical History Coronary artery disease (Chronic) s/p [place] 2007 Chronic systolic CHF (congestive heart failure) (Chronic) GERD (gastroesophageal reflux disease) (Chronic) Hypothyroidism (Chronic) Anxiety (Chronic) Schizoid personality disorder (Chronic) Decubitus ulcer (Chronic) multiple, chronic Osteomyelitis (Acute) right femoral head Aug 2018 treated with 6 wks vanco + ertapenem Wound infection (Acute) Pseudomonas PEG site October 2018 History of ESBL E. coli infection (Resolved) Aug 2018, + blood and urine cultures Urethral trauma (Acute) Aug 2018. Childs cath. Severe protein-calorie malnutrition (Chronic) Dyslipidemia (Chronic) Chronic pain (Chronic) History of DVT (deep vein thrombosis) (Chronic) LLE 2017 Anxiety (Chronic) HTN (hypertension) (Chronic) Hypothyroidism (Chronic) GERD (gastroesophageal reflux disease) (Chronic) Anemia (Chronic) Schizoid personality disorder (Chronic) Myocardial infarction (Chronic) Dyslipidemia (Chronic) History of electroconvulsive therapy (Chronic) History of Clostridium difficile colitis (Chronic) Bacteremia C. difficile colitis DVT (deep venous thrombosis) Depression Esophagitis Childs catheter in place Iron deficiency Osteomyelitis Pressure ulcer of ankle, right, unstageable Pressure ulcer of sacral region, stage 4 Surgical History History of appendectomy (Chronic) Status post insertion of inferior vena caval filter (Chronic) Status post insertion of percutaneous endoscopic gastrostomy (PEG) tube (Chronic) Sep 2018 S/P PICC central line placement Family History Other Family history non-contributory Social History Preferred Language: [place] Communication Ability: Impaired Lye Treater Required: No Beliefs That Will Affect Care: None Current Living Situation: Care Home Current Living Situation Comment: [facility] Other Information That Helps Us Care for You: No Feels Safe at Home: Yes Safety Concerns: Feels Safe At This Time Smoking Status: Former smoker Hx Alcohol Use: No Hx Substance Use: No Review of Systems See HPI above Physical Exam Vital Signs (Past 24 Hours): Last Vital Signs Temp 37 C 11/05/18 07:53 Pulse 76 11/05/18 11:19 Resp 16 11/05/18 11:19 BP 117/66 11/05/18 11:19 Pulse Ox 97 11/05/18 11:19 Constitutional: + ill appearing, + thin and cooperative Eyes: PERRL, conjunctivae normal, anicteric sclerae ENMT: external ear and nose normal, oropharynx normal Respiratory: normal respiratory effort; no respiratory distress Auscultation: + diminished lung sounds Cardiovascular: RRR, no murmur, no edema Gastrointestinal (Abdomen): he's grimacing w even slight touch of his abdomen area. PEG at mid upper abd, tubing w clear/yellowish fluid. No signs of infectio n on insertion site. Skin: no jaundice Neurologic: Motor/Sensory: no asterixis Psychiatric: A+Ox3, euthymic affect Lymphatic: no lymphedema Results & Data Laboratory Results Laboratory Results - last 72 hr 11/05/18 11/05/18 11/05/18 08:22 08:22 08:38 WBC 9.20 RBC 2.77 L Hgb 7.7 L Hct 23.5 L MCV 84.8 MCH 27.8 MCHC 32.8 RDW Std Deviation 58.2 H RDW Coeff of Lucila 18.8 H Plt Count 430 H MPV 9.2 Immature Gran % (Auto) 0.4 Neut % (Auto) 75.8 Lymph % (Auto) 14.6 [place] % (Auto) 5.8 Eos % (Auto) 3.0 Baso % (Auto) 0.4 Immature Gran # (Auto) 0.04 H Neut # (Auto) 6.97 H Lymph # (Auto) 1.34 [place] # (Auto) 0.53 Eos # (Auto) 0.28 Baso # (Auto) 0.04 RBC Morphology Unremarkable PT 12.0 INR 1.2 H Sodium 138 Potassium 4.3 Chloride 105 Carbon Dioxide 29 Anion Gap 4.0 BUN 24 H Creatinine 0.62 Est Cr Clr Drug Dosing Not Reportable Est GFR ( Amer) 114.9 Est GFR (Non-Af Amer) 99.1 BUN/Creatinine Ratio 39.5 H Glucose 101 H Calcium 7.9 L Total Bilirubin 0.1 L AST 24 ALT 22 Alkaline Phosphatase 103 Total Protein 6.4 Albumin 1.6 L Globulin 4.8 H Albumin/Globulin Ratio 0.3 L Lipase 142 Urine Color Urine Appearance Urine pH Ur Specific [place] Urine Protein Urine Glucose (UA) Urine Ketones Urine Blood Urine Nitrite Urine Bilirubin Urine Urobilinogen Ur Leukocyte Esterase Urine WBC (Auto) Urine RBC (Auto) U Hyaline Cast (Auto) U Epithel Cells (Auto) Urine Bacteria (Auto) Urine Yeast Blood Type Antibody Screen 11/05/18 11/05/18 08:38 09:20 WBC RBC Hgb Hct MCV MCH MCHC RDW Std Deviation RDW Coeff of Lucila Plt Count MPV Immature Gran % (Auto) Neut % (Auto) Lymph % (Auto) [place] % (Auto) Eos % (Auto) Baso % (Auto) Immature Gran # (Auto) Neut # (Auto) Lymph # (Auto) [place] # (Auto) Eos # (Auto) Baso # (Auto) RBC Morphology PT INR Sodium Potassium Chloride Carbon Dioxide Anion Gap BUN Creatinine Est Cr Clr Drug Dosing Est GFR ( Amer) Est GFR (Non-Af Amer) BUN/Creatinine Ratio Glucose Calcium Total Bilirubin AST ALT Alkaline Phosphatase Total Protein Albumin Globulin Albumin/Globulin Ratio Lipase Urine Color Yellow Urine Appearance Cloudy H Urine pH 6.5 Ur Specific [place] 1.013 Urine Protein Negative Urine Glucose (UA) Negative Urine Ketones Negative Urine Blood Trace H Urine Nitrite Negative Urine Bilirubin Negative Urine Urobilinogen Negative Ur Leukocyte Esterase 3+ H Urine WBC (Auto) >30 H Urine RBC (Auto) 0-4 U Hyaline Cast (Auto) 0 U Epithel Cells (Auto) 0-5 Urine Bacteria (Auto) Negative Urine Yeast Budding w/ Hyphae H Blood Type A Positive Antibody Screen NEGATIVE
[2018-11-05] MEDS ORDERED: TRAMADOL HCL 50 MG TABLET PO PRN (13:17)
[2018-11-05] MEDS ORDERED: OXYCODONE HCL IR 5 MG TAB (IMMEDIATE RELEASE) PO PRN (13:17)
[2018-11-05] MEDS ORDERED: BISACODYL 10 MG SUPP PR PRN (13:17)
[2018-11-05 13:59] LABS: Hematocrit (blood only) 24.1 % (42-52); Hemoglobin 7.7 g/dL (14.0-18.0)
[2018-11-05] MEDS ORDERED: fentaNYL 25 MCG/HR TDSY TD SCH (14:00)
[2018-11-05] MEDS: ERTAPENEM SODIUM 1,000 MG in SODIUM CHLORIDE 0.9% 50 ML IV SCH (14:49)
[2018-11-05] MEDS: BACLOFEN 10 MG TAB PO SCH ×2 (14:49→21:47)
[2018-11-05] MEDS: CHECK FENTANYL PATCH PLACEMENT SCH (15:12)
[2018-11-05] MEDS: PEPTAMEN 1.5 CAL 1,000 ML BAG PEG SCH (18:38)
[2018-11-05] MEDS ORDERED: PANTOprazole 40 MG in SYRINGE 0 ML IV SCH (21:00)
[2018-11-05] MEDS ORDERED: SACCHAROMYCES BOULARDII 250 MG CAP PO SCH (21:00)
[2018-11-05] MEDS ORDERED: DOCUSATE SODIUM 100 MG CAP PO SCH (21:00)
[2018-11-05] MEDS ORDERED: DOCUSATE SODIUM 100 MG PO SCH (21:00)
[2018-11-05] MEDS: FERROUS SULFATE 325 MG TAB PO SCH (21:49)
[2018-11-05] MEDS: DIVALPROEX DELAY RELEASE 125 MG TABEC PO SCH (21:49)
[2018-11-05] MEDS: PROSOURCE NO CARB 30 ML/PKT PEG SCH (21:51)
[2018-11-05] MEDS ORDERED: CHOLESTYRAMINE LIGHT 4 GM PKT PO SCH (22:00)
[2018-11-05 22:04] LABS: Hematocrit (blood only) 23.3 % (42-52); Hemoglobin 7.5 g/dL (14.0-18.0)
[2018-11-06] MEDS: CHECK FENTANYL PATCH PLACEMENT SCH ×4 (00:27→23:58)
[2018-11-06] MEDS: LEVOTHYROXINE SODIUM 25 MCG TABLET PO SCH (05:49)
[2018-11-06 06:34] LABS: Hematocrit (blood only) 24.3 % (42-52); Hemoglobin 7.7 g/dL (14.0-18.0)
[2018-11-06 06:59] LABS: Albumin Level 1.6 gm/dl (3.4-5.0); BUN Creatinine Ratio 30.3 (10-20); Calcium 7.7 mg/dl (8.5-10.1); Creatinine Clr Calc Pharmacy 74.1 ml/min; Est GFR (Non-African American) 89.7; Potassium 4.4 mmol/L (3.5-5.1)
[2018-11-06 07:01] LABS: Albumin Globulin Ratio 0.3 (0.9-2); Bilirubin,Total 0.3 mg/dl (0.2-1); Total Protein 6.6 gm/dl (6.4-8.2)
[2018-11-06] MEDS: MULTIVITAMIN TAB PO SCH (07:54)
[2018-11-06] MEDS: FOLIC ACID 1 MG TAB PO SCH (07:55)
[2018-11-06] MEDS: VITAMIN B COMPLEX TAB PO SCH (07:56)
[2018-11-06] MEDS: POLYETHYLENE (MIRALAX) 17 GM PACK PO SCH (07:56)
[2018-11-06] MEDS: BACLOFEN 10 MG TAB PO SCH ×3 (07:57→20:08)
[2018-11-06] MEDS: FERROUS SULFATE 325 MG TAB PO SCH ×2 (07:59→20:07)
[2018-11-06] MEDS: THIAMINE HCL 100 MG TAB PO SCH (08:00)
[2018-11-06] MEDS: PROSOURCE NO CARB 30 ML/PKT PEG SCH ×2 (08:00→20:09)
[2018-11-06] MEDS ORDERED: OXYCODONE HCL IR 5 MG TAB (IMMEDIATE RELEASE) PO PRN (08:22)
[2018-11-06] MEDS ORDERED: MoRPHine SULFATE 2 MG/ML CARP IV STA (08:22)
--- NOTE | 2018-11-06 08:55 | Gastroenterology Progress Note ---
Date of Service November 06, 2018 Assessment & Plan (1) Anemia: (2) Hematochezia: Pt is a 73 y/o w multiple medical comorbidities as noted above, seen for hematochezia and anemia. Only one episode of rectal bleeding witnessed prior to ED arrival, rectal exam in ED showed brown stool w guaiac positive. H/H didn't drop significantly from baseline. CT abd/pelvis did show rectal area thickening w stool burden and suggestion of stercoral colitis. No more rectal bleeding overnight. H/H stable. - Consider blood transfusion given Hgb around 7; monitor H/H - Consulted lead relay tester for calorie count; he's eating well by mouth and wonder if still needs PEG TF? - Defer EGD evaluation given on true melena signs and his significant complicated medical hx - Suggest pt to be on daily bowel regimen such as Miralax 17g daily + Colace 100mg BID. May add gentle water enema in small volumes if not successful to produce BM. - Consider outpt colonoscopy eval if continues to have rectal bleeding and once his other medical issues are resolved. - Please recall GI if needed. Supervising Physician Co-Signing Physician Notes I saw and evaluated the patient. There is been no reported recurrence of hematochezia overnight. Based on the patient's history we suspect that he has hemorrhoidal bleeding or perhaps bleeding from an early stroke or ulcer. We would recommend beginning a bowel regimen as we discussed yesterday. The patient will certainly need an outpatient colonoscopy once his other medical issues have been improved. Please call with any additional questions or concerns during the remainder of the hospital admission. Subjective H/H stable. Pt w BM but no more rectal bleeding overnight. He denies any abd pain, n/v. Ate by mouth well, though PEG TF running still at rate 25ml/hr. Physical Exam Vital Signs (Past 24 Hours): Last Vital Signs Temp 36.7 C 11/06/18 07:48 Pulse 77 11/06/18 07:48 Resp 16 11/06/18 07:48 BP 139/74 11/06/18 07:48 Pulse Ox 97 11/06/18 07:48 Constitutional: + ill appearing, well groomed and cooperative Eyes: PERRL, conjunctivae normal, anicteric sclerae ENMT: external ear and nose normal, oropharynx normal Respiratory: normal respiratory effort, lungs clear to auscultation Cardiovascular: RRR, no murmur, no edema Gastrointestinal (Abdomen): Percussion/Palpation: abdomen soft PEG to LUQ area. No sign of exudate, erythema at insertion site. He grimaces on slight palpation of abd Skin: no rashes, warm and dry no jaundice Neurologic: Motor/Sensory: no asterixis Psychiatric: A+Ox3, euthymic affect Lymphatic: no lymphedema (1) Anemia Anemia type: other cause Other causes of anemia: nutritional, protein deficiency Qualified Code(s): D53.0 - Protein deficiency anemia
[2018-11-06] MEDS ORDERED: ERGOCALCIFEROL 50,000 UNITS CAP PO SCH (09:00)
[2018-11-06] MEDS ORDERED: PANTOprazole 40 MG in SYRINGE 0 ML IV SCH (11:00)
[2018-11-06] MEDS: DOCUSATE SODIUM SYRUP 100 MG/10 ML UDC PO SCH ×2 (12:30→20:09)
[2018-11-06] MEDS: METOPROLOL SUCC 25MG EXT REL TAB PO SCH (12:32)
[2018-11-06] MEDS: DIVALPROEX DELAY RELEASE 125 MG TABEC PO SCH ×2 (12:32→20:05)
[2018-11-06] MEDS ORDERED: SODIUM CHLORIDE 0.9% 250 ML IV PRN (13:56)
--- NOTE | 2018-11-06 14:57 | Hospitalist Progress Note ---
Date of Service November 06, 2018 Assessment & Plan (1) Hematochezia: This is a 73-year-old male who has a complex medical history including HTN, chronic systolic CHF secondary to ischemic heart disease, recurrent UTI MDR, chronic anemia baseline hemoglobin 8, multiple chronic decubitus wounds, c hronic right hip osteomyelitis/septic arthritis with history of right femoral head resection and I&D, hypothyroidism, history of DVT status post IVC filter who presents to [facility] secondary to large bowel with hematochezia x1 at detention -Patient has on this admission to date of 11/06/18 been able to maintain a stable hemoglobin of 7.7 on several blood draws -Gastroenterology has evaluated the patient and does not recommend urgent need for colonoscopy or endoscopy at this time -will continue the iron supplements BID in case of iron deficiency anemia -will continue to have patient remain of PEG tube placement given that sometimes there are troubles with swallowing -will resume Eliquis BID and discontinue the IV pantoprazole -will transfuse 1 unit of PRBC and monitor the Hgb (2) Anemia: Anemia probably multifactorial, contributing factors including malnutrition and infections. -will continue the iron supplements BID in case of iron deficiency anemia (3) UTI (urinary tract infection): -Continue IV Invanz, to finish 11/08/18 -contact precautions for ESBL - Dali albicansin urine is colonization (4) Coronary artery disease: Denies chest pain. No acute EKG changes. Continue metoprolol. History of dyslipidemia, but statin therapy probably not indicated at this time due to severe protein-calorie malnutrition (5) Chronic systolic CHF (congestive heart failure): History of chronic left ventricular systolic heart failure due to ischemic heart disease. Currently compensated at time of admission (6) GERD (gastroesophageal reflux disease): -continue Pantoprazole as oral (7) Hypothyroidism: -continue levothyroxine (8) Osteomyelitis: Chronic secondary to multiple chronic wounds History of right hip I&D with femoral head extraction had in the past complete course of IV antibiotics for possible vancomycin and ertapenem (9) Schizoid personality disorder: -Mood is stable, is not on any antipsychotics (10) Decubitus ulcer: Multiple chronic skin ulcers, some dating back 2-3 years. Several chronic skin ulcers including sacrum, bilat hips, right buttock, left lateral malleous. Wound Care, Continue local care, repositioning, nutrition (11) Severe protein-calorie malnutrition: Severe protein-calorie malnutrition. Wt 49 kg, Continue PEG tube feedings for nutritional/wound support Continue PEG feeds and oral feeds as tolerated (12) Chronic pain: -Continue fentanyl patch, oxycodone/tramadol as needed (13) HTN (hypertension): Blood pressure stable continue metoprolol (14) Discharge planning issues: Patient is a resident of [facility] (15) DVT prophylaxis: History of thromboembolism (History of DVT in 2018) has IVC filter. Anticoagulation initiated March 2018 with warfarin and transitioned to Eliquis resume Eliquis Full Code Subjective Patient seen and examined at bedside. Patient rests in bed with legs contracted. He did not allow physician to see his legs by uncovering the blanket. Patient signed consent form for blood transfusion. Patient denies shortness of breath. no vomiting. Physical Exam Vital Signs (Past 24 Hours): Last Vital Signs Temp 37 C 11/06/18 14:40 Pulse 76 11/06/18 14:40 Resp 16 11/06/18 14:40 BP 128/68 11/06/18 14:40 Pulse Ox 98 11/06/18 14:40 Physical Exam: Gen: Chronically ill male, lying in bed in contracted position, NAD, pleasant, conversing easily Head: Normocephalic, Atraumatic Eyes: Sclera normal, no conjunctival injection, PERRLA, EOMI ENT: Gross hearing intact, normal pharynx, mucous membranes dry Neck: supple, no adenopathy, No JVD, no bruit, Resp: Clear to auscultation b/l, no wheeze, rales, rhonchi. Normal insp/exp effort, no accessory muscle use CV: Regular rate, regular rhythm, 1/6 HUA noted cardiac apex, no rub, gallop, or ectopy Abd: +BS x 4, soft, nontender, nondistended, + Peg Musculoskeletal:+ contractures Extremities: He did not allow physician to see his legs by uncovering the blanket. Neuro: Alert, verbal (1) Anemia Anemia type: other cause Other causes of anemia: nutritional, protein deficiency Qualified Code(s): D53.0 - Protein deficiency anemia (2) UTI (urinary tract infection) Hematuria presence: without hematuria Urinary tract infection type: site unspecified Qualified Code(s): N39.0 - Urinary tract infection, site not specified (3) Coronary artery disease Coronary Disease-Associated Artery/Lesion type: [place] artery [place] vs. transplanted heart: [place] heart Associated angina: without angina Qualified Code(s): I25.10 - Atherosclerotic heart disease of [place] coronary artery without angina pectoris (4) GERD (gastroesophageal reflux disease) Esophagitis presence: without esophagitis Qualified Code(s): K21.9 - Gastro- esophageal reflux disease without esophagitis (5) Hypothyroidism Hypothyroidism type: other Qualified Code(s): E03.8 - Other specified hypothyroidism (6) Chronic pain Chronic pain type: chronic pain syndrome Qualified Code(s): G89.4 - Chronic pain syndrome (7) HTN (hypertension) Hypertension type: essential hypertension Qualified Code(s): I10 - Essential (primary) hypertension
[2018-11-06] MEDS: ERTAPENEM SODIUM 1,000 MG in SODIUM CHLORIDE 0.9% 50 ML IV SCH (18:49)
[2018-11-06] MEDS: PEPTAMEN 1.5 CAL 1,000 ML BAG PEG SCH (20:03)
[2018-11-06] MEDS: APIXABAN 5 MG TABLET PO SCH (20:16)
[2018-11-07] MEDS: LEVOTHYROXINE SODIUM 25 MCG TABLET PO SCH (04:53)
[2018-11-07 06:04] LABS: Hematocrit (blood only) 25.2 % (42-52); Hemoglobin 8.1 g/dL (14.0-18.0); Mean Corpuscular Hgb Conc 32.1 g/dL (32-36); Mean Platelet Volume 9.4 fL (7.4-10.4); Platelet Count 360 K/uL (130-400); RDW Coefficient of Variation 18.6 % (11.5-14.5); RDW Standard Deviation 56.6 fL (36.4-46.3); White Blood Count 8.36 K/uL (4.8-10.8)
[2018-11-07] MEDS: CHECK FENTANYL PATCH PLACEMENT SCH ×2 (07:48→16:15)
[2018-11-07] MEDS: BACLOFEN 10 MG TAB PO SCH ×2 (07:49→13:37)
[2018-11-07] MEDS: DOCUSATE SODIUM SYRUP 100 MG/10 ML UDC PO SCH (07:49)
[2018-11-07] MEDS: DIVALPROEX DELAY RELEASE 125 MG TABEC PO SCH (07:49)
[2018-11-07] MEDS: FERROUS SULFATE 325 MG TAB PO SCH (07:49)
[2018-11-07] MEDS: FOLIC ACID 1 MG TAB PO SCH (07:50)
[2018-11-07] MEDS: METOPROLOL SUCC 25MG EXT REL TAB PO SCH (07:50)
[2018-11-07] MEDS: MULTIVITAMIN TAB PO SCH (07:50)
[2018-11-07] MEDS: THIAMINE HCL 100 MG TAB PO SCH (07:51)
[2018-11-07] MEDS: VITAMIN B COMPLEX TAB PO SCH (07:51)
[2018-11-07] MEDS: APIXABAN 5 MG TABLET PO SCH (07:51)
[2018-11-07] MEDS: POLYETHYLENE (MIRALAX) 17 GM PACK PO SCH (07:51)
[2018-11-07] MEDS: PROSOURCE NO CARB 30 ML/PKT PEG SCH (07:52)
[2018-11-07] MEDS ORDERED: PANTOprazole 40 MG TAB PO SCH (09:00)
[2018-11-07] MEDS ORDERED: Nursing to Pharmacy Communication ONE (10:45)
[2018-11-07] MEDS ORDERED: OXYCODONE HCL IR 5 MG TAB (IMMEDIATE RELEASE) PO PRN (10:46)
--- NOTE | 2018-11-07 11:01 | Hospitalist Progress Note ---
Date of Service November 07, 2018 Assessment & Plan (1) Hematochezia: This is a 73-year-old male who has a complex medical history including HTN, chronic systolic CHF secondary to ischemic heart disease, recurrent UTI MDR, chronic anemia baseline hemoglobin 8, multiple chronic decubitus wounds, c hronic right hip osteomyelitis/septic arthritis with history of right femoral head resection and I&D, hypothyroidism, history of DVT status post IVC filter who presents to [facility] secondary to [facility] bowel [facility] -Patient has on this admission to date of 11/06/18 been able to maintain a stable hemoglobin of 7.7 on several blood draws -Gastroenterology has evaluated the patient and does not recommend urgent need for colonoscopy or endoscopy at this time -continue the iron supplements BID in case of iron deficiency anemia -continue to have patient remain of PEG tube placement given that sometimes there are troubles with swallowing -continue Eliquis BID and oral pantoprazole -was transfused 1 unit of PRBC on 11/06/18, Hgb is 8.1 on 11/07/18 Patient should see primary medical doctor in 1 week and have CBC repeated. Discharge Hemoglobin is 8.1 on 11/07/18 after 1 unit or PRBC given on this hospital admission (2) Anemia: Anemia probably multifactorial, contributing factors including malnutrition and infections. -will continue the iron supplements BID for iron deficiency anemia (3) UTI (urinary tract infection): -Continue IV ertapenam Patient will have completed IV ertapenam 1000 mg daily with last day as 11/08/18 as the established last from prior hospital admission. Patient can have PICC line removed once antibiotics is completed -has been on contact precautions for ESBL in the past -Dali albicansin urine is colonization (4) Coronary artery disease: Denies chest pain. No acute EKG changes. Continue metoprolol. History of dyslipidemia, but statin therapy probably not indicated at this time due to severe protein-calorie malnutrition (5) Chronic systolic CHF (congestive heart failure): History of chronic left ventricular systolic heart failure due to ischemic heart disease. Currently compensated at time of admission (6) GERD (gastroesophageal reflux disease): -continue Pantoprazole as oral (7) Hypothyroidism: -continue levothyroxine (8) Osteomyelitis: Chronic secondary to multiple chronic wounds History of right hip I&D with femoral head extraction had in the past complete course of IV antibiotics for possible vancomycin and ertapenem (9) Schizoid personality disorder: -Mood is stable, is not on any antipsychotics (10) Decubitus ulcer: Multiple chronic skin ulcers, some dating back 2-3 years. has chronic ulcerations below the waist and history of surgical debridements including pressure ulcers stage 4 of buttock (Several chronic skin ulcers including sacrum, bilat hips, right buttock, left lateral malleous) Wound Care as needed, Continue local care, repositioning, nutrition -continue prn tramadol and oxycodone -continue Fentanyl patch (11) Severe protein-calorie malnutrition: Severe protein-calorie malnutrition. Wt 49 kg, Continue PEG tube feedings for nutritional/wound support Continue PEG feeds and oral feeds as tolerated (12) Chronic pain: -continue prn tramadol and oxycodone -continue Fentanyl patch -Because patient has chronic ulcerations below the waist and history of surgical debridements including pressure ulcers stage 4 of buttock, patient has been on narcotic medications for pain and because [facility], the discharging hospitalist physician has med prescriptions to renew narcotic medications as tramadol 50 mg q6 hour as needed for pain (16 tablets prescribed) and oxycodone 5 mg q6 hours as needed for pain (16 tablets prescribed) , and also Fentanyl patch 25 mcg every 72 hours (2 patches prescribed) (13) HTN (hypertension): Blood pressure stable continue metoprolol (14) Discharge planning issues: Patient is a resident of [facility] (15) DVT prophylaxis: History of thromboembolism (History of DVT in 2018) has IVC filter. Anticoagulation initiated March 2018 with warfarin and transitioned to Eliquis resume Eliquis Full Code Discharge Diagnosis Anemia, Hematochezia, Urinary Tract Infection, Multiple chronic decubital ulcers with stage 4 ulceration and history of debridement of the buttocks, severe protein calorie malnutrition, history of thromboembolism, anticoagulated by anticoagulation therapy of Eliquis Discharge Instructions Discharge back to [facility] Because patient has chronic ulcerations below the waist and history of surgical debridements including pressure ulcers stage 4 of buttock, patient has been on narcotic medications for pain and because [facility] is [facility] the [facility], the discharging hospitalist physician has med prescriptions to renew narcotic medications as tramadol 50 mg q6 hour as needed for pain (16 tablets prescribed) and oxycodone 5 mg q6 hours as needed for pain (16 tablets prescribed) , and also Fentanyl patch 25 mcg every 72 hours (2 patches prescribed) Patient should see primary medical doctor in 1 week and have CBC repeated. Discharge Hemoglobin is 8.1 on 11/07/18 after 1 unit or PRBC given on this hospital admission Patient will have completed IV ertapenam 1000 mg daily with last day as 11/08/18 as the established last from prior hospital admission. Patient can have PICC line removed once antibiotics is completed Subjective Patient denies chest pain or shortness of breath. no vomiting. no abdominal pain. nurse denies seeing any blood from orifices Physical Exam Vital Signs (Past 24 Hours): Last Vital Signs Temp 36.8 C 11/07/18 07:47 Pulse 86 11/07/18 07:47 Resp 16 11/07/18 07:47 BP 136/72 11/07/18 07:47 Pulse Ox 97 11/07/18 07:47 Constitutional: + thin Eyes: PERRL, conjunctivae normal, anicteric sclerae EOM intact bilaterally ENMT: external ear and nose normal, oropharynx normal Neck: trachea midline, no thyromegaly normal visual inspection Respiratory: normal respiratory effort, lungs clear to auscultation Cardiovascular: Rate/Rhythm: regular rate and regular rhythm Gastrointestinal (Abdomen): Percussion/Palpation: abdomen soft (PEG tube) Musculoskeletal: Head/Neck/Chest: normocephalic and head atraumatic Extremities: + upper extremity abnormal to inspection (PICC line) Hip: + hip abnormal to inpsection (pressure ulcers stage 4 of buttock) Skin: + ulcer (chronic skin ulcers sacrum,bilat hips,right buttock, left la teral malleolus) Neurologic: PERRL, EOMI, accommodation nl, no face palsy, no dysarthria Psychiatric: Orientation: alert (1) UTI (urinary tract infection) Hematuria presence: without hematuria Urinary tract infection type: site unspecified Qualified Code(s): N39.0 - Urinary tract infection, site not specified (2) Chronic pain Chronic pain type: chronic pain syndrome Qualified Code(s): G89.4 - Chronic pain syndrome (3) Coronary artery disease Associated angina: without angina Coronary Disease-Associated Artery/Lesion type: [place] artery [place] vs. transplanted heart: [place] heart Qualified Code(s): I25.10 - Atherosclerotic heart disease of [place] coronary artery without angina pectoris (4) Anemia Anemia type: other cause Other causes of anemia: nutritional, protein deficiency Qualified Code(s): D53.0 - Protein deficiency anemia (5) Hypothyroidism Hypothyroidism type: other Qualified Code(s): E03.8 - Other specified hypothyroidism (6) GERD (gastroesophageal reflux disease) Esophagitis presence: without esophagitis Qualified Code(s): K21.9 - Gastro- esophageal reflux disease without esophagitis (7) HTN (hypertension) Hypertension type: essential hypertension Qualified Code(s): I10 - Essential (primary) hypertension
--- NOTE | 2018-11-07 11:16 | Discharge Summary ---
Date of Service November 07, 2018 Admission HPI Per Admitting Provider This is a 73-year-old male who has a complex medical history including HTN, chronic systolic CHF secondary to ischemic heart disease, recurrent UTI MDR, chronic anemia baseline hemoglobin 8, multiple chronic decubitus wounds, chronic right hip osteomyelitis/septic arthritis with history of right femoral head resection and I&D, hypothyroidism, history of DVT status post IVC filter who presents to [facility] secondary to large bowel with hematochezia x1 this morning. Patient resides at [facility]. He has had multiple recurrent hospitalizations over the last year. Initially admitted at [facility] February 2018 for septic shock secondary to extensive decubitus ulcers with maggot infiltration.Patient discharged to LTAC March 2018. Left lower extremity DVT noted during LTAC stay. Coumadin ini tiated. Patient transferred to [facility] halfway in [place] April 2018. Readmitted back to [place] secondary to Right femoral neck noted to be exposed along w/ bilateral thigh buttock and lower extremity ulcers during stay at the halfway. Right thigh wound was unstageable with R femoral head exposed through gaping wound, left thigh wound had left femoral head exposed. Patient admitted with a diagnosis of osteomyelitis and chronic wounds. Patient subsequently underwent I&D of decubiti wounds and right femoral head resection. Polymicrobial operative cultures grew Enterococcus species, MSSA, gram-negative rods and anaerobes. Patient completed ceftriaxone metronidazole and vancomycin antibiotic courses via PICC line until June 2018. Patient unable to follow-up with [facility] surgeon (Dr. Coelho) postop due to financial constraints posed by transportation difficulties from [place] to [place] as per patient's brother. Admitted to [facility] 08/11-08/17/2018 secondary to severe sepsis. Had EGD on 09/25/18 with PEG placed for nutritional support given multiple wounds. 3/4 to 3/8 mm with ZARA 10/25-10/30 admitted to [facility] secondary to ESBL UTI discharged on IV Invanz for additional 10 days. He continues on IV Invanz therapy. Nursing staff at nursing facility noted large BM this morning which included hematochezia. At that time patient was hemodynamically stable but given multiple comorbidities it was recommended he be transferred to ED. According to patient currently he feels, "fine." He denies any fever, chills, sweats, lightheadedness, dizziness, chest pain, shortness of breath, hemoptysis, nausea, vomiting, diarrhea, abdominal pain. He does elicit to having some back pain secondary to current position. He does have chronic wounds which he states are treated twice a day. Spoke with [facility] nursing staff. Pt currently receiving PEG tube feedings for nutritional support but continues to take meds orally and eat. Admission Exam Per Admitting Provider Gen: Chronically ill male, lying in bed in contracted position, NAD, pleasant, conversing easily Head: Normocephalic, Atraumatic Eyes: Sclera normal, no conjunctival injection, PERRLA, EOMI ENT: Gross hearing intact, normal pharynx, mucous membranes dry Neck: supple, no adenopathy, No JVD, no bruit, Resp: Clear to auscultation b/l, no wheeze, rales, rhonchi. Normal insp/exp effort, no accessory muscle use CV: Regular rate, regular rhythm, 1/6 HUA noted cardiac apex, no rub, gallop, or ectopy Abd: +BS x 4, soft, nontender, nondistended, + Peg, no surrounding erythema or drainage Musculoskeletal:+ contractures, limited AROM Extremities: No edema bilaterally, multiple wounds noted b/l lower extremities and sacrum, contractures noted, +PICC Skin: warm, dry, no rash, negative turgor, cap refill < 2sec Neuro: Alert and oriented x 3, speech normal, good mood/affect, cran nerve 2-12 intact grossly : deferred Principal Diagnosis Anemia, Hematochezia, Urinary Tract Infection, Multiple chronic decubital ulcers with stage 4 ulceration and history of debridement of the buttocks, severe protein calorie malnutrition, history of thromboembolism, anticoagulated by anticoagulation therapy of Eliquis Discharge Exam Constitutional + thin Eyes PERRL, conjunctivae normal, anicteric sclerae EOM intact bilaterally ENMT external ear and nose normal, oropharynx normal Neck trachea midline, no thyromegaly normal visual inspection Respiratory normal respiratory effort, lungs clear to auscultation Cardiovascular Rate/Rhythm: regular rate and regular rhythm Gastrointestinal (Abdomen) Percussion/Palpation: abdomen soft (PEG tube) Musculoskeletal Head/Neck/Chest: normocephalic and head atraumatic Extremities: + upper extremity abnormal to inspection (PICC line) Hip: + hip abnormal to inpsection (pressure ulcers stage 4 of buttock) Skin + ulcer (chronic skin ulcers sacrum,bilat hips,right buttock, left lateral malleolus) Neurologic PERRL, EOMI, accommodation nl, no face palsy, no dysarthria Psychiatric Orientation: alert Discharge Data Allergies Allergy/AdvReac Type Severity Reaction Status Date / Time iodine Allergy Unknown Unknown Verified 10/25/18 05:14 onion AdvReac Intermediate vomitting Verified 10/25/18 05:14 Consultations 11/05/18 10:13 ED Decision to Admit Stat 11/05/18 11:10 Consult Gastroenterology Routine 11/05/18 13:17 Consult Case Management - Discharge Planning Routine Ordered Studies 11/05/18 08:15 CT abd pelvis IV con only Stat Hospital Course (1) Hematochezia: This is a 73-year-old male who has a complex medical history including HTN, chronic systolic CHF secondary to ischemic heart disease, recurrent UTI MDR, chronic anemia baseline hemoglobin 8, multiple chronic decubitus wounds, chronic right hip osteomyelitis/septic arthritis with history of right femoral head resection and I&D, hypothyroidism, history of DVT status post IVC filter who presents to [facility] secondary to large bowel with hematochezia x1 at halfway -Patient has on this admission to date of 11/06/18 been able to maintain a stable hemoglobin of 7.7 on several blood draws -Gastroenterology has evaluated the patient and does not recommend urgent need for colonoscopy or endoscopy at this time -continue the iron supplements BID in case of iron deficiency anemia -continue to have patient remain of PEG tube placement given that sometimes there are troubles with swallowing -continue Eliquis BID and oral pantoprazole -was transfused 1 unit of PRBC on 11/06/18, Hgb is 8.1 on 11/07/18 Patient should see primary medical doctor in 1 week and have CBC repeated. Discharge Hemoglobin is 8.1 on 11/07/18 after 1 unit or PRBC given on this hospital admission (2) Anemia: Anemia probably multifactorial, contributing factors including malnutrition and infections. -will continue the iron supplements BID for iron deficiency anemia (3) UTI (urinary tract infection): -Continue IV ertapenam Patient will have completed IV ertapenam 1000 mg daily with last day as 11/08/18 as the established last from prior hospital admission. Patient can have PICC line removed once antibiotics is completed -has been on contact precautions for ESBL in the past -Dali albicansin urine is colonization (4) Coronary artery disease: Denies chest pain. No acute EKG changes. Continue metoprolol. History of dyslipidemia, but statin therapy probably not indicated at this time due to severe protein-calorie malnutrition (5) Chronic systolic CHF (congestive heart failure): History of chronic left ventricular systolic heart failure due to ischemic heart disease. Currently compensated at time of admission (6) GERD (gastroesophageal reflux disease): -continue Pantoprazole as oral (7) Hypothyroidism: -continue levothyroxine (8) Osteomyelitis: Chronic secondary to multiple chronic wounds History of right hip I&D with femoral head extraction had in the past complete course of IV antibiotics for possible vancomycin and ertapenem (9) Schizoid personality disorder: -Mood is stable, is not on any antipsychotics (10) Decubitus ulcer: Multiple chronic skin ulcers, some dating back 2-3 years. has chronic ulcerations below the waist and history of surgical debridements including pressure ulcers stage 4 of buttock (Several chronic skin ulcers including sacrum, bilat hips, right buttock, left lateral malleous) Wound Care as needed, Continue local care, repositioning, nutrition -continue prn tramadol and oxycodone -continue Fentanyl patch (11) Severe protein-calorie malnutrition: Severe protein-calorie malnutrition. Wt 49 kg, Continue PEG tube feedings for nutritional/wound support Continue PEG feeds and oral feeds as tolerated (12) Chronic pain: -continue prn tramadol and oxycodone -continue Fentanyl patch -Because patient has chronic ulcerations below the waist and history of surgical debridements including pressure ulcers stage 4 of buttock, patient has been on narcotic medications for pain and because patient is going to the halfway, the discharging hospitalist physician has med prescriptions to renew narcotic medications as tramadol 50 mg q6 hour as needed for pain (16 tablets prescribed) and oxycodone 5 mg q6 hours as needed for pain (16 tablets prescribed) , and also Fentanyl patch 25 mcg every 72 hours (2 patches prescribed) (13) HTN (hypertension): Blood pressure stable continue metoprolol (14) Discharge planning issues: Patient is a resident of [facility] (15) DVT prophylaxis: History of thromboembolism (History of DVT in 2018) has IVC filter. Anticoagulation initiated March 2018 with warfarin and transitioned to Eliquis resume Eliquis Full Code Discharge Diagnosis Anemia, Hematochezia, Urinary Tract Infection, Multiple chronic decubital ulcers with stage 4 ulceration and history of debridement of the buttocks, severe protein calorie malnutrition, history of thromboembolism, anticoagulated by anticoagulation therapy of Eliquis Discharge Instructions Discharge back to [facility] Because patient has chronic ulcerations below the waist and history of surgical debridements including pressure ulcers stage 4 of buttock, patient has been on narcotic medications for pain and because patient is going to the halfway, the discharging hospitalist physician has med prescriptions to renew narcotic medications as tramadol 50 mg q6 hour as needed for pain (16 tablets prescribed) and oxycodone 5 mg q6 hours as needed for pain (16 tablets prescribed) , and also Fentanyl patch 25 mcg every 72 hours (2 patches prescribed) Patient should see primary medical doctor in 1 week and have CBC repeated. Discharge Hemoglobin is 8.1 on 11/07/18 after 1 unit or PRBC given on this hospital admission Patient will have completed IV ertapenam 1000 mg daily with last day as 11/08/18 as the established last from prior hospital admission. Patient can have PICC line removed once antibiotics is completed Total Time Total Time Spent Total Time Spent (In Minutes): 40 minutes Total Time Includes: Examination of the Patient, Discharge Planning and Medication Reconciliation Discharge Plan Discharge Items Patient Disposition: Transfer Custodial Fac Reason For Visit: MELENA,ACUTE ON CHRONIC ANEMIA Discharge Diagnosis: Anemia, Hematochezia, Urinary Tract Infection, Multiple chronic decubital ulcers with stage 4 ulceration and history of debridement of the buttocks, severe protein calorie malnutrition, history of thromboembolism, anticoagulated by anticoagulation therapy of Eliquis Condition: Fair Discharge Goals: Improve disease control Activity: Resume your previous activity Non-emergency contact: Primary Care Provider Call non-emergency contact if: you have any medication questions Follow-up/Referrals: Sameera Villa [Primary Care Provider] - Diet: Regular Diet Texture: Pureed (blended smooth) Diet Comment: Continue PEG feeds as previous to this hospital stay Addtl Provider Instructions: Discharge back to [facility] Because patient has chronic ulcerations below the waist and history of surgical debridements including pressure ulcers stage 4 of buttock, patient has been on narcotic medications for pain and because patient is going to the halfway, the discharging hospitalist physician has med prescriptions to renew narcotic medications as tramadol 50 mg q6 hour as needed for pain (16 tablets prescribed) and oxycodone 5 mg q6 hours as needed for pain (16 tablets prescribed) , and also Fentanyl patch 25 mcg every 72 hours (2 patches prescribed) Patient should see primary medical doctor in 1 week and have CBC repeated. Discharge Hemoglobin is 8.1 on 11/07/18 after 1 unit or PRBC given on this hospital admission. Patient will have completed IV ertapenam 1000 mg daily with last day as 11/08/18 as the established last from prior hospital admission. Patient can have PICC line removed once antibiotics is completed Prescriptions: New tramadol 50 mg Tablet 50 mg PO Q6H PRN (Reason: pain) 4 Days Qty: 16 RF: 0 fentanyl 25 mcg/hr Patch 72 Hour 25 mcg transdermal Q3D 6 Days Qty: 2 RF: 0 oxycodone 5 mg Tablet 5 mg PO Q6H PRN (Reason: pain) 4 Days Qty: 16 RF: 0 Continued thiamine HCl (vitamin B1) 100 mg Tablet 100 mg PO DAILY RF: 0 melatonin 3 mg Tablet 3 mg PO HS RF: 0 tramadol 50 mg Tablet 50 mg PO Q6H PRN (Reason: Pain) RF: 0 levothyroxine 25 mcg Tablet 1 tab PO DAILY RF: 0 magnesium hydroxide [Milk of Magnesia] 400 mg/5 mL Suspension 30 ml PO DAILY PRN (Reason: Constipation) RF: 0 baclofen 10 mg Tablet 5 mg PO TID RF: 0 bisacodyl 10 mg Suppository 10 mg ND DAILY PRN (Reason: Constipation) RF: 0 ferrous sulfate 325 mg (65 mg iron) Tablet 325 mg PO BID RF: 0 divalproex 125 mg Tablet,Delayed Release (Dr/Ec) 4 cap PO BID RF: 0 Enema 19-7 gram/118 mL Enema 197 ml ND DAILY PRN (Reason: Constipation) RF: 0 vitamin B complex Tablet 1 tab PO DAILY RF: 0 folic acid 1 mg Tablet 1 mg PO DAILY RF: 0 ergocalciferol (vitamin D2) 50,000 unit Capsule 50,000 unit PO 2XWK RF: 0 Cholestyramine Light 4 gram Powder 4 g PO BID RF: 0 Eliquis 5 mg Tablet 5 mg PO BID RF: 0 fentanyl 25 mcg/hr Patch 72 Hour 25 mcg transdermal Q3D Qty: 5 RF: 0 oxycodone 5 mg Tablet 5 mg PO Q6 PRN (Reason: pain) Qty: 20 RF: 0 ertapenem 1 gram recon soln 1 gm IV DAILY Qty: 10 RF: 0 acetaminophen 325 mg Tablet 650 mg PO Q6H MDD 3gm/24hr PRN (Reason: temp>101) RF: 0 acetaminophen [Tylenol] 325 mg Tablet 650 mg PO Q6H MDD 3g/24hr PRN (Reason: mild pain 1-3) RF: 0 Probiotic (S.boulardii) 250 mg Capsule 250 mg PO BID RF: 0 Stress Formula with Zinc Tablet 1 tab PO DAILY RF: 0 docusate sodium [Docu] 50 mg/5 mL Liquid 100 mg PO BID RF: 0 pantoprazole 40 mg Tablet,Delayed Release (Dr/Ec) 40 mg PO DAILY RF: 0 metoprolol succinate 25 mg Tablet Extended Release 24 Hr 25 mg PO DAILY RF: 0 Stand-Alone Forms: [facility] Discharge Orders: Discharge Order (Routine); Ordered 11/07/18 Ordered By: Kyle Smith Skilled Items Patient informed of condition?: Yes DNR: No Discharge Level of Care: Skilled Communicable Disease: No Discharge Prognosis: Stable Admission Data Admit Date/Time: 11/05/18 11:10 Attending Provider: Kyle Smith Admit Provider: Areli Reyes Primary Care Provider: Sameera Villa Other Providers: Areli Reyes ; Aislinn Fairbanks Service: Telemetry
[2018-11-07] MEDS: ERTAPENEM SODIUM 1,000 MG in SODIUM CHLORIDE 0.9% 50 ML IV SCH (12:36)
== END 2018-11-07 16:43 | DRG 377 ==
LOC: ED 07:38 → SUATTDRO 11:10 → 2N 11:10

== ENCOUNTER 2019-03-14 14:43 | Inpatient (IN) ==
[2019-03-14] MEDS ORDERED: SODIUM CHLORIDE 0.9% 1000ML 1,000 ML IV ONE ×2 (16:13→20:53)
--- NOTE | 2019-03-14 16:38 | XRay Report ---
XR chest 1V portable CLINICAL HISTORY: 73 years-old Male presenting with agitation. TECHNIQUE: Portable upright AP view of the chest was obtained. COMPARISON: 10/25/2018. FINDINGS: Atherosclerosis of the aortic arch. Cardiac silhouette top normal in size. Mildly low lung volumes wi th hypoventilatory changes. Increased bibasilar opacities. No large effusion or pneumothorax. Degener ative changes of the thoracic spine. Mild gaseous distention of colon. IMPRESSION: 1. Increased bibasilar infiltrates possibly atelectasis or less likely aspiration. 2. Low lung volumes with hypoventilatory changes. 3. Gaseous distention of bowel. Electronically signed by: Carmelo Adhikari M.D. 03/14/2019 4:36 PM
[2019-03-14] MEDS ORDERED: CEFTOLOZANE/TAZOBACTAM 375 MG in DEXTROSE 5% 100 ML IV STA (17:34)
[2019-03-14 17:44] LABS: Magnesium 2.4 mg/dl (1.8-2.4); Troponin I < 0.015 ng/ml (0-0.045)
[2019-03-14] MEDS ORDERED: DAPTOmycin 425 MG in SYRINGE 0 ML IV ONE (17:45)
[2019-03-14] MEDS ORDERED: CALCIUM CHLORIDE 10% 1,000 MG in SODIUM CHLORIDE 0.9% 50 ML IV STA (17:57)
[2019-03-14] MEDS ORDERED: DEXTROSE 50% 50 ML SYRINGE IV ONE (17:59)
[2019-03-14] MEDS ORDERED: NovoLIN-R INSULIN PER UNIT CHARGE IV STA (17:59)
[2019-03-14 18:01] LABS: Appearance Urine Turbid (Clear); Bacteria Urine Automated 4+ (Negative); Bilirubin Urine Negative (Negative); Blood Urine 3+ (Negative); Color Urine Dark Yellow; Glucose Urine UA Negative (Negative); Ketones Urine Negative (Negative); Leukocyte Esterase Urine 3+ (Negative); Nitrite Urine Negative (Negative); RBC Urine Automated 0-4 /hpf (0-4); Urobilinogen Urine Negative (Negative); WBC Urine Automated >30 /hpf (0-5); pH Urine >= 9.0 (4.5-7.5)
[2019-03-14] MEDS ORDERED: CALCIUM CHLORIDE 10% 10 ML SYR IV ONE (18:08)
[2019-03-14] MEDS ORDERED: CALCIUM GLUCONATE 10% 1,000 MG in SODIUM CHLORIDE 0.9% 50 ML IV STA (18:14)
[2019-03-14 18:23] LABS: Protein Urine 2+ (Negative)
--- NOTE | 2019-03-14 18:52 | CT Scan Report ---
CT SCAN OF THE LEFT TIBIA AND FIBULA WITHOUT IV CONTRAST; CT SCAN OF THE RIGHT TIBIA AND FIBULA IV CO NTRAST CLINICAL HISTORY: Left lower extremity infection. Pretibial wounds. COMPARISON STUDY: No priors. TECHNIQUE: CT scan of the left tibia and fibula as well as CT scan of the right tibia and fibula is performed from the distal femur to the ankle joint. Images are reviewed in the axial, sagittal, and c oronal planes. IV contrast was not missed report for this examination. A dose lowering technique was utilized adhering to the principles of ALARA. The examination is severely compromised by patient con tractures and inability to properly position the patient. Interpretation is also suboptimal without P aylin film correlate. CT DOSE: 1583.34 mGy.cm FINDINGS: The skeletal structures are heterogeneously osteopenic. There is no evidence of fracture of the right or left tibia and fibula. No bony erosion or periostitis is clearly identified involving t he right or left tibia or fibula. The knee and ankle joints are grossly maintained bilaterally noting significant degenerative change. The majority of the right femur and right hip are included. There i s extensive destructive change involving the right proximal femur, with fragmentation of the femoral head, neck, intertrochanteric region, and proximal shaft. Destructive change and erosion is also iden tified within the right acetabulum. A cutaneous wound overlies the right hip and appears to extend to wards the joint space. There is surrounding soft tissue inflammation and fluid. Advanced atherosclero tic calcification is seen within the lower extremity arteries bilaterally. A Childs catheter is in edgardo ce. Gas is noted within the bladder lumen. The bladder wall appears thickened and there is pericystic stranding. Rectosigmoid fecal impaction is partially imaged. There is generalized atrophy of the low er extremity musculature with mild soft tissue edema. No organized fluid collection is identified wit hin either leg. No subcutaneous gas is seen. A small wound is suggested in the pretibial soft tissues on the right. The left pretibial wound is not well imaged. IMPRESSION: 1. Significantly degraded examination due to patient contracture and inability to properly position t he patient. 2. No acute bony abnormality is identified involving the right or left tibia and fibula. Specifically , there is no convincing CT evidence of tibial or fibular osteomyelitis in either leg. 3. Extensive destructive change is seen involving the right proximal femur and the right acetabulum w ith an overlying wound. There is superficial and deep soft tissue fluid and inflammation identified a round the left hip. Acute versus chronic infection/osteomyelitis is not excluded. Clinical correlatio n will be required. 4. The bladder wall is thickened and there is pericystic inflammation. Correlate clinically and with urinalysis for evidence of cystitis. 5. There is rectosigmoid fecal impaction. 6. Mild soft tissue edema is present throughout both legs. A pretibial wound is suggested on the righ t. No organized fluid collection is suggested in either lower extremity. Electronically signed by: Prabhjot Sarmiento M.D. 03/14/2019 6:51 PM
--- NOTE | 2019-03-14 19:40 | History & Physical Report ---
Date of Service March 14, 2019 Assessment & Plan (1) Sepsis: Severe Sepsis Metabolic/Uremic Encephalopathy Likely Source: LE Wounds, UTI H/O Osteomyelitis Wound Culture: from 03/09/19: Growing Pseudomonas, MRSA CT LE reviewed Started on Daptomycin, Ceftolozane/Tazobactam Day #1 Blood/ Urine cultures obtained ID consulted for Input Continue IV Fluids Also consulted Wound Care ZARA Hyperkalemia Received calcium gluconate, IV fluids and insulin while in ED. Monitor renal function Check renal ultrasound Avoid nephrotoxic agents as able Monitor potassium levels Continue IV fluids Nephrology Consulted Chronic systolic heart failure No signs of volume overload Monitor volume status Not on diuretics CAD Denies chest pain Coronary artery disease DVT S/P IVC filter Continue Eliquis Hypothyroidism Continue levothyroxine GERD Continue PPI Schizoid personality disorder On Divalproex chronic decubitus wounds Wound Care Consulted Severe protein calorie malnutrition Continue tube feeds Dietitian consulted DVT Px: On Eliquis Code Status Full Code Disposition: Plan to discharge to [facility] when stable History of Present Illness Chief Complaint: Altered mental status Primary Care Provider: Sameera Schroederedith Patient is a 73-year-old male with history of hypertension, chronic systolic hea rt failure, coronary artery disease, severe malnutrition, DVT S/P IVC filter, osteomyelitis, hypothyroidism, GERD, schizoid personality disorder, dyslipidemia, recurrent MDR UTIs, chronic anemia, chronic decubitus wounds and other problems presents from [facility] for placement of PICC line in [facility] for IV antibiotics. Patient's wound culture grew Pseudomonas and MRSA from 03/09/19. Patient was found to be agitated and confused and so was sent from [facility] to ED for further evaluation. History is limited secondary to the patient's mental status. Most of the history is obtained from ER staff, old records. Patient is agitated and refuses examination. He was noted to be hypotensive on presentation, blood pressure slightly improved with IV fluids. White blood cell count elevated at 16.3 7K, also found to be hyponatremia--131, hyperkalemia 6.2, ZARA with creatinine levels elevated to 3.23 and BUN 102. Procalcitonin elevated at 3.23, lactate normal at 1.12. UA suggestive of UTI. Chest x-ray showed increased bibasilar infiltrates possible atelectasis, also less likely aspiration. Lower extremity CT showed no acute bony abnormality. Extensive destructive change noted on the right proximal femur and right acetabulum with overlying wound. Acute versus chronic infection/osteomyelitis could not be excluded. The bladder wall is thickened, with pericystic inflammation suggestive of cystitis. Rectosigmoid fecal impaction also noted. Allergies Allergy/AdvReac Type Severity Reaction Status Date / Time iodine Allergy Unknown Unknown Verified 03/14/19 09:45 onion AdvReac Intermediate vomitting Verified 03/14/19 09:45 Home Medications Home Medications Medication Instructions Recorded Confirmed Type B [id number] 1 tab PO DAILY 03/14/19 03/14/19 History Milk of Magnesia 30 ml PO UD PRN 03/14/19 03/14/19 History Nutritional Frozen Dessert 1 dose PO TIDM 03/14/19 03/14/19 History acetaminophen [Tylenol] 650 mg PO Q4 PRN 03/14/19 03/14/19 History apixaban [Eliquis] 5 mg PO BID 03/14/19 03/14/19 History baclofen 5 mg PO TID 03/14/19 03/14/19 History bisacodyl [Dulcolax (bisacodyl)] 10 mg WA UD PRN 03/14/19 03/14/19 History divalproex 500 mg PO BID 03/14/19 03/14/19 History docusate sodium 100 mg PO BID 03/14/19 03/14/19 History fentanyl [Duragesic] 1 patch TOPICAL [id number] 03/14/19 03/14/19 History ferrous sulfate 325 mg PO BID 03/14/19 03/14/19 History folic acid 1 mg PO DAILY 03/14/19 03/14/19 History food supplemt, lactose-reduced 60 ea PO BID 03/14/19 03/14/19 History [Protein Nutritional Shake] lactobacillus combination no.4 0 mmu cells PO BID 03/14/19 03/14/19 History [Probiotic] levothyroxine [Synthroid] 25 mcg PO DAILY 03/14/19 03/14/19 History melatonin 3 mg PO HS 03/14/19 03/14/19 History metoprolol succinate [Toprol XL] 25 mg PO DAILY 03/14/19 03/14/19 History nut.tx. metabolic disorder,soy 0 ea FEEDING TUBE UD 03/14/19 03/14/19 History [Perative] oxycodone [Roxicodone] 5 mg PO Q6 03/14/19 03/14/19 History pantoprazole [Protonix] 40 mg PO DAILY 03/14/19 03/14/19 History thiamine HCl (vitamin B1) 100 mg PO DAILY 03/14/19 03/14/19 History tramadol [Ultram] 50 mg PO Q6 PRN 03/14/19 03/14/19 History Past Med/Surg History Medical History Coronary artery disease (Chronic) s/p [facility] 2007 Chronic systolic CHF (congestive heart failure) (Chronic) GERD (gastroesophageal reflux disease) (Chronic) Hypothyroidism (Chronic) Anxiety (Chronic) Schizoid personality disorder (Chronic) Decubitus ulcer (Chronic) multiple, chronic Osteomyelitis (Acute) right femoral head Aug 2018 treated with 6 wks vanco + ertapenem Wound infection (Acute) Pseudomonas PEG site October 2018 History of ESBL E. coli infection (Resolved) Aug 2018, + blood and urine cultures Urethral trauma (Acute) Aug 2018. Childs cath. Severe protein-calorie malnutrition (Chronic) Dyslipidemia (Chronic) Chronic pain (Chronic) History of DVT (deep vein thrombosis) (Chronic) LL2017 Anxiety (Chronic) HTN (hypertension) (Chronic) Hypothyroidism (Chronic) GERD (gastroesophageal reflux disease) (Chronic) Anemia (Chronic) Schizoid personality disorder (Chronic) Myocardial infarction (Chronic) Dyslipidemia (Chronic) History of electroconvulsive therapy (Chronic) History of MDR Pseudomonas aeruginosa infection (Acute) Hx MRSA infection (Acute) History of Clostridium difficile colitis (Chronic) Bacteremia C. difficile colitis DVT (deep venous thrombosis) Depression Esophagitis Childs catheter in place Iron deficiency Osteomyelitis Pressure ulcer of ankle, right, unstageable Pressure ulcer of sacral region, stage 4 Surgical History History of appendectomy (Chronic) Status post insertion of inferior vena caval filter (Chronic) Status post insertion of percutaneous endoscopic gastrostomy (PEG) tube (Chronic) Sep 2018 S/P PICC central line placement Family History Other Family history non-contributory Social History Preferred Language: Amharic Communication Ability: Effective Saw Superintendent Required: No Beliefs That Will Affect Care: None Current Living Situation: [facility] Current Living Situation Comment: [place] Feels Safe at Home: Yes Smoking Status: Unknown if ever smoked Hx Alcohol Use: No Hx Substance Use: No Review of Systems Review of Systems: Unobtainable due to mental health condition Physical Exam Physical Exam: Physical examination is limited secondary to patient being uncooperative and agitated currently Physical Exam: Vitals signs as noted above General Appearance: Chronically ill-appearing, disheveled, thin, frail, " repeats words" Head: normocephalic, Atraumatic Eyes: normal inspection, EOMI Neck: supple, Trachea midline Respiratory/Chest: Normal breath sounds, CTA Cardiovascular: S1, S2, + systolic murmur Abdomen/GI:Soft, Non tender, Bowel sounds present, +PEG tube Extremities/Musculoskelatal:normal inspection, multiple wounds on extremities, Contracture, legs in boots Neurologic/Psych:grossly moves all extremities, complete neurological exam could not be performed Skin: normal color, warm, sacral wounds, Results & Data Vital Signs (Past 12 Hours) Vital Signs Temp Pulse Resp BP Pulse Ox 03/14/19 17:34 71 33 H 90/50 L 100 03/14/19 17:30 78 26 H 95 03/14/19 17:14 81 32 H 91/47 L 95 03/14/19 17:00 83 37 H 100 03/14/19 16:30 80 28 H 98 03/14/19 16:00 85 25 H 99 03/14/19 15:30 86 32 H 97 03/14/19 15:01 76 34 H 98 03/14/19 14:50 77 32 H 91/58 L 98 03/14/19 14:35 37.0 C 77 26 H 91/58 L 98 Laboratory Results Cardiac Enzymes 03/14/19 Range/Units 17:05 Troponin I < 0.015 (0-0.045) ng/ml Urine 03/14/19 Range/Units Unknown Urine Color Dark Yellow Urine Appearance Turbid A (Clear) Urine pH >= 9.0 H (4.5-7.5) Ur Specific [place] 1.010 (1.000-1.030) Urine Protein 2+ H (Negative) Urine Glucose (UA) Negative (Negative) Diagnostic Findings CXR: 1. Increased bibasilar infiltrates possibly atelectasis or less likely aspiration. 2. Low lung volumes with hypoventilatory changes. 3. Gaseous distention of bowel. LE CT: 1. Significantly degraded examination due to patient contracture and inability to properly position the patient. 2. No acute bony abnormality is identified involving the right or left tibia and fibula. Specifically, there is no convincing CT evidence of tibial or fibular osteomyelitis in either leg. 3. Extensive destructive change is seen involving the right proximal femur and the right acetabulum with an overlying wound. There is superficial and deep soft tissue fluid and inflammation identified around the left hip. Acute versus chronic infection/osteomyelitis is not excluded. Clinical correlation will be required. 4. The bladder wall is thickened and there is pericystic inflammation. Correlate clinically and with urinalysis for evidence of cystitis. 5. There is rectosigmoid fecal impaction. 6. Mild soft tissue edema is present throughout both legs. A pretibial wound is suggested on the right. No organized fluid collection is suggested in either lower extremity. Medications Administered Home Medications Medication Instructions Recorded Confirmed B [id number] 1 tab PO DAILY 03/14/19 03/14/19 Milk of Magnesia 30 ml PO UD PRN 03/14/19 03/14/19 Nutritional Frozen Dessert 1 dose PO TIDM 03/14/19 03/14/19 acetaminophen [Tylenol] 650 mg PO Q4 PRN 03/14/19 03/14/19 apixaban [Eliquis] 5 mg PO BID 03/14/19 03/14/19 baclofen 5 mg PO TID 03/14/19 03/14/19 bisacodyl [Dulcolax (bisacodyl)] 10 mg WA UD PRN 03/14/19 03/14/19 divalproex 500 mg PO BID 03/14/19 03/14/19 docusate sodium 100 mg PO BID 03/14/19 03/14/19 fentanyl [Duragesic] 1 patch TOPICAL [id number] 03/14/19 03/14/19 ferrous sulfate 325 mg PO BID 03/14/19 03/14/19 folic acid 1 mg PO DAILY 03/14/19 03/14/19 food supplemt, lactose-reduced 60 ea PO BID 03/14/19 03/14/19 [Protein Nutritional Shake] lactobacillus combination no.4 0 mmu cells PO BID 03/14/19 03/14/19 [Probiotic] levothyroxine [Synthroid] 25 mcg PO DAILY 03/14/19 03/14/19 melatonin 3 mg PO HS 03/14/19 03/14/19 metoprolol succinate [Toprol XL] 25 mg PO DAILY 03/14/19 03/14/19 nut.tx. metabolic disorder,soy 0 ea FEEDING TUBE UD 03/14/19 03/14/19 [Perative] oxycodone [Roxicodone] 5 mg PO Q6 03/14/19 03/14/19 pantoprazole [Protonix] 40 mg PO DAILY 03/14/19 03/14/19 thiamine HCl (vitamin B1) 100 mg PO DAILY 03/14/19 03/14/19 tramadol [Ultram] 50 mg PO Q6 PRN 03/14/19 03/14/19 (1) Sepsis Sepsis type: sepsis due to unspecified organism Qualified Code(s): A41.9 - Sepsis, unspecified organism
[2019-03-14] MEDS ORDERED: SODIUM CHLORIDE 0.9% 1000ML 1,000 ML IV SCH (22:21)
[2019-03-14] MEDS ORDERED: [UNRECOGNIZED DRUG - OTHER] PO SCH (22:21)
[2019-03-14] MEDS ORDERED: BISACODYL 10 MG SUPP PR PRN (22:21)
[2019-03-14] MEDS ORDERED: POLYETHYLENE (MIRALAX) 17 GM PACK PO PRN (22:21)
[2019-03-14] MEDS ORDERED: TRAMADOL HCL 50 MG TABLET PO PRN (22:21)
[2019-03-14] MEDS ORDERED: ACETAMINOPHEN 325 MG TAB PO PRN (22:21)
[2019-03-14] MEDS ORDERED: [UNRECOGNIZED DRUG - OTHER] feeding tube SCH (22:21)
[2019-03-14] MEDS ORDERED: Nursing to Pharmacy Communication ONE (22:30)
[2019-03-14] MEDS ORDERED: DAPTOMYCIN CONSULT ACTIVE PRN (23:05)
[2019-03-14 23:06] LABS: BUN Creatinine Ratio 34.3 (10-20); Blood Urea Nitrogen 108 mg/dl (7-18); Calcium 8.3 mg/dl (8.5-10.1); Carbon Dioxide 20 mmol/L (21-32); Chloride 108 mmol/L (98-107); Est GFR (African American) 21.7; Est GFR (Non-African American) 18.7; Glucose 78 mg/dl (70-99); Potassium 5.1 mmol/L (3.5-5.1); Sodium 139 mmol/L (136-145)
[2019-03-14] MEDS ORDERED: [UNRECOGNIZED DRUG - REMARK] PRN (23:07)
[2019-03-14] MEDS ORDERED: PATIENT S HEIGHT NEEDED SCH (23:15)
[2019-03-14] MEDS: SODIUM CHLORIDE 0.9% 1000ML 1,000 ML IV SCH (23:33)
[2019-03-14] MEDS: APIXABAN 5 MG TABLET PO SCH (23:46)
[2019-03-14] MEDS: DIVALPROEX SODIUM SPRINKLE 125 MG CAP PO SCH (23:47)
[2019-03-14] MEDS: BACLOFEN 10 MG TAB PO SCH (23:48)
[2019-03-14] MEDS: DOCUSATE SODIUM 100 MG CAP PO SCH (23:49)
[2019-03-14] MEDS: fentaNYL 25 MCG/HR TDSY TD SCH (23:59)
[2019-03-15] MEDS: CHECK FENTANYL PATCH PLACEMENT SCH ×3 (00:01→16:20)
--- NOTE | 2019-03-15 01:28 | Ultrasound Report ---
ULTRASOUND KIDNEYS AND BLADDER CLINICAL HISTORY: Acute renal insufficiency. COMPARISON STUDY: Abdominal CT dated 11/05/2018. TECHNIQUE: Real-time, grayscale, and color flow sonography of the kidneys and bladder is performed. I mages are reviewed in the transverse and longitudinal planes. Examination is degraded by lack of ignacio ent cooperation. FINDINGS: Kidneys: The kidneys are normal in size and echotexture. The right kidney measures 11.6 x 6.1 x 7.9 c m and the left kidney measures 11.0 x 6.5 x 8.0 cm. There is mild bilateral hydronephrosis, left grea ter than right. No shadowing renal calculi are identified. There is no sonographic evidence of contou r deforming renal mass lesion. No perinephric fluid is identified. Bladder: A Childs catheter is in place. The prostate gland is enlarged and heterogeneous noting median lobe hypertrophy. The bladder wall is thickened and trabeculated indicating chronic outlet obstructi on. Complex intraluminal debris is noted. Ureteral jets were not seen. IMPRESSION: 1. There is mild bilateral hydronephrosis, left greater than right. 2. Prostatomegaly with evidence of chronic bladder outlet obstruction. 3. A Childs catheter is in place. 4. Layering complex debris is noted within the bladder lumen. Correlation with urinalysis will be req uired. Electronically signed by: Prabhjot Sarmeinto M.D. 03/15/2019 1:26 AM
[2019-03-15] MEDS: CEFTOLOZANE/TAZOBACTAM 375 MG in DEXTROSE 5% 100 ML IV SCH ×3 (01:58→16:57)
[2019-03-15] MEDS: LEVOTHYROXINE SODIUM 25 MCG TABLET PO SCH (05:55)
[2019-03-15 06:31] LABS: Basophils # (auto) 0.01 K/uL (0-0.2); Basophils % (auto) 0.1 %; Eosinophils # (auto) 0.04 K/uL (0-0.5); Eosinophils % (auto) 0.4 %; Hematocrit (blood only) 30.7 % (42-52); Hemoglobin 10.5 g/dL (14.0-18.0); Immature Granulocytes # (auto) 0.03 K/uL (0.00-0.02); Immature Granulocytes % (auto) 0.3 %; Lymphocytes # (auto) 0.55 K/uL (1.2-3.4); Lymphocytes % (auto) 5.4 %; Mean Corpuscular Hgb Conc 34.2 g/dL (32-36); Mean Corpuscular Volume 84.8 fL (80-100); Mean Platelet Volume 10.1 fL (7.4-10.4); Monocytes # (auto) 1.53 K/uL (0.11-0.59); Neutrophils # (auto) 8.06 K/uL (1.4-6.5); Neutrophils % (auto) 78.8 %; Platelet Count 207 K/uL (130-400); RDW Coefficient of Variation 15.9 % (11.5-14.5); RDW Standard Deviation 49.8 fL (36.4-46.3); Red Blood Count 3.62 M/uL (4.7-6.1); White Blood Count 10.22 K/uL (4.8-10.8)
[2019-03-15 06:59] LABS: BUN Creatinine Ratio 36.1 (10-20); Calcium 8.3 mg/dl (8.5-10.1); Creatinine Clr Calc Pharmacy 22.4 ml/min; Est GFR (African American) 23.9; Est GFR (Non-African American) 20.7; Magnesium 2.3 mg/dl (1.8-2.4)
[2019-03-15] MEDS: THIAMINE HCL 100 MG TAB PO SCH (07:42)
[2019-03-15] MEDS: FOLIC ACID 1 MG TAB PO SCH (07:43)
[2019-03-15] MEDS: PANTOprazole 40 MG TAB PO SCH (07:43)
[2019-03-15] MEDS: BACLOFEN 10 MG TAB PO SCH ×2 (07:43→13:11)
[2019-03-15] MEDS: APIXABAN 5 MG TABLET PO SCH ×2 (07:44→20:49)
[2019-03-15] MEDS: DIVALPROEX SODIUM SPRINKLE 125 MG CAP PO SCH ×2 (07:44→20:49)
[2019-03-15] MEDS: DOCUSATE SODIUM 100 MG CAP PO SCH ×2 (07:44→20:50)
[2019-03-15] MEDS: SODIUM CHLORIDE 0.9% 1000ML 1,000 ML IV SCH ×2 (07:46→13:10)
[2019-03-15] MEDS ORDERED: [UNRECOGNIZED DRUG - OTHER] PO SCH (08:00)
[2019-03-15] MEDS ORDERED: METOPROLOL SUCC 25MG EXT REL TAB PO SCH (09:00)
--- NOTE | 2019-03-15 16:50 | Nephrology Consultation ---
Date of Consultation March 15, 2019 Assessment & Plan (1) Acute kidney injury: Patient with ZARA likely due to ischemic ATN in setting of sepsis. He was hypotensive yesterday. BP is better today. Cr improving with iv fluids. Continue iv normal saline. Monitor input/output and daily BMP. No need for HD and patient not a good candidate for HD. Appreciate palliative care input (2) Acute hyperkalemia: Due to ZARA. K better today at 5.1. Continue insulin/dextrose as needed for k above 5.5. He should be on a K restricted diet. (3) Sepsis: He is antibiotics per primary team. renally dose antibiotics for GFR less than 15ml/min. Avoid hypotension History of Present Illness Reason for Consultation: ZARA Requesting Physician: Nereida Garrido MD Attending Physician: Shawanda Tomas MD History of Present Illness This is a 73-year-old male being seen for ZARA. PMH of hypertension, chronic systolic heart failure, coronary artery disease, severe malnutrition, DVT S/P IVC filter, osteomyelitis, hypothyroidism, GERD, schizoid personality disorder, dyslipidemia, recurrent MDR UTIs, chronic anemia, and chronic decubitus wounds who was admitted on 03/14 with AMS found to have ZARA with cr 3.2 and K 6.1. He resides at [facility]. He is on IV antibiotics. Patient's wound culture grew Pseudomonas and MRSA from 03/09/19. K and cr slightly better today. He can not give history due to mental status changes. History obtained by talking to providers and review of records. Allergies Allergy/AdvReac Type Severity Reaction Status Date / Time iodine Allergy Unknown Unknown Verified 03/14/19 09:45 onion AdvReac Intermediate vomitting Verified 03/14/19 09:45 Home Medications Home Medications Medication Instructions Recorded Confirmed Type B [id number] 1 tab PO DAILY 03/14/19 03/14/19 History Milk of Magnesia 30 ml PO UD PRN 03/14/19 03/14/19 History Nutritional Frozen Dessert 1 dose PO TIDM 03/14/19 03/14/19 History acetaminophen [Tylenol] 650 mg PO Q4 PRN 03/14/19 03/14/19 History apixaban [Eliquis] 5 mg PO BID 03/14/19 03/14/19 History baclofen 5 mg PO TID 03/14/19 03/14/19 History bisacodyl [Dulcolax (bisacodyl)] 10 mg MN UD PRN 03/14/19 03/14/19 History divalproex 500 mg PO BID 03/14/19 03/14/19 History docusate sodium 100 mg PO BID 03/14/19 03/14/19 History fentanyl [Duragesic] 1 patch TOPICAL [id number] 03/14/19 03/14/19 History ferrous sulfate 325 mg PO BID 03/14/19 03/14/19 History folic acid 1 mg PO DAILY 03/14/19 03/14/19 History food supplemt, lactose-reduced 60 ea PO BID 03/14/19 03/14/19 History [Protein Nutritional Shake] lactobacillus combination no.4 0 mmu cells PO BID 03/14/19 03/14/19 History [Probiotic] levothyroxine [Synthroid] 25 mcg PO DAILY 03/14/19 03/14/19 History melatonin 3 mg PO HS 03/14/19 03/14/19 History metoprolol succinate [Toprol XL] 25 mg PO DAILY 03/14/19 03/14/19 History nut.tx. metabolic disorder,soy 0 ea FEEDING TUBE UD 03/14/19 03/14/19 History [Perative] oxycodone [Roxicodone] 5 mg PO Q6H 03/14/19 03/14/19 History pantoprazole [Protonix] 40 mg PO DAILY 03/14/19 03/14/19 History thiamine HCl (vitamin B1) 100 mg PO DAILY 03/14/19 03/14/19 History tramadol [Ultram] 50 mg PO Q6 PRN 03/14/19 03/14/19 History Patient History Medical History Coronary artery disease (Chronic) s/p NE 2007 Chronic systolic CHF (congestive heart failure) (Chronic) GERD (gastroesophageal reflux disease) (Chronic) Hypothyroidism (Chronic) Anxiety (Chronic) Schizoid personality disorder (Chronic) Decubitus ulcer (Chronic) multiple, chronic Osteomyelitis (Acute) right femoral head Aug 2018 treated with 6 wks vanco + ertapenem Wound infection (Acute) Pseudomonas PEG site October 2018 History of ESBL E. coli infection (Resolved) Aug 2018, + blood and urine cultures Urethral trauma (Acute) Aug 2018. Childs cath. Severe protein-calorie malnutrition (Chronic) Dyslipidemia (Chronic) Chronic pain (Chronic) History of DVT (deep vein thrombosis) (Chronic) LL2017 Anxiety (Chronic) HTN (hypertension) (Chronic) Hypothyroidism (Chronic) GERD (gastroesophageal reflux disease) (Chronic) Anemia (Chronic) Schizoid personality disorder (Chronic) Myocardial infarction (Chronic) Dyslipidemia (Chronic) History of electroconvulsive therapy (Chronic) History of MDR Pseudomonas aeruginosa infection (Acute) Hx MRSA infection (Acute) History of Clostridium difficile colitis (Chronic) Bacteremia C. 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 Gastrointestinal: Abdomen is soft, non distended, non tender, bowel sounds are present CVS: Regular rate and rhythm. No murmurs, rubs or gallops Musculoskeletal: No joint or muscle tenderness Extremities: Non tender, no edema, peripheral pulses are present Neuro: Agitated, appears to have flexion contractures Skin: No rashes, Bed sores on the hips and buttocks Results & Data Vital Signs (Past 12 Hours) Vital Signs Temp Pulse Resp BP Pulse Ox 03/15/19 14:53 36.9 C 88 22 134/76 95 03/15/19 11:29 36.6 C 71 16 107/67 97 03/15/19 07:48 36.5 C 86 22 121/63 96 Laboratory Results Laboratory Results - last 24 hr 03/14/19 03/14/19 03/14/19 17:05 17:16 19:24 WBC RBC Hgb Hct MCV MCH MCHC RDW Std Deviation RDW Coeff of Lucila Plt Count MPV Immature Gran % (Auto) Neut % (Auto) Lymph % (Auto) Owen % (Auto) Eos % (Auto) Baso % (Auto) Immature Gran # (Auto) Neut # (Auto) Lymph # (Auto) Owen # (Auto) Eos # (Auto) Baso # (Auto) ESR Sodium Potassium Chloride Carbon Dioxide Anion Gap BUN Creatinine Est Cr Clr Drug Dosing Est GFR ( Amer) Est GFR (Non-Af Amer) BUN/Creatinine Ratio Glucose POC Lactic Acid Jesús 1.12 Calcium Magnesium 2.4 Total Creatine Kinase Troponin I < 0.015 Lipase 57 L Procalcitonin 3.23 H Urine Color Urine Appearance Urine pH Ur Specific [place] Urine Protein Urine Glucose (UA) Urine Ketones Urine Blood Urine Nitrite Urine Bilirubin Urine Urobilinogen Ur Leukocyte Esterase Urine WBC (Auto) Urine RBC (Auto) U Hyaline Cast (Auto) U Epithel Cells (Auto) Urine Bacteria (Auto) Urine Yeast 03/14/19 03/14/19 03/15/19 22:35 Unknown 06:13 WBC RBC Hgb Hct MCV MCH MCHC RDW Std Deviation RDW Coeff of Lucila Plt Count MPV Immature Gran % (Auto) Neut % (Auto) Lymph % (Auto) Owen % (Auto) Eos % (Auto) Baso % (Auto) Immature Gran # (Auto) Neut # (Auto) Lymph # (Auto) Owen # (Auto) Eos # (Auto) Baso # (Auto) ESR Sodium 139 D 142 Potassium 5.1 D 5.0 Chloride 108 H 112 H Carbon Dioxide 20 L 21 Anion Gap 11.0 9.0 BUN 108 H 105 H Creatinine 3.15 H 2.90 H Est Cr Clr Drug Dosing Not Reportable 22.4 Est GFR ( Amer) 21.7 23.9 Est GFR (Non-Af Amer) 18.7 20.7 BUN/Creatinine Ratio 34.3 H 36.1 H Glucose 78 82 POC Lactic Acid Jesús Calcium 8.3 L 8.3 L Magnesium 2.3 Total Creatine Kinase Troponin I Lipase Procalcitonin Urine Color Dark Yellow Urine Appearance Turbid A Urine pH >= 9.0 H Ur Specific [place] 1.010 Urine Protein 2+ H Urine Glucose (UA) Negative Urine Ketones Negative Urine Blood 3+ H Urine Nitrite Negative Urine Bilirubin Negative Urine Urobilinogen Negative Ur Leukocyte Esterase 3+ H Urine WBC (Auto) >30 H Urine RBC (Auto) 0-4 U Hyaline Cast (Auto) 1-5 U Epithel Cells (Auto) 10-20 H Urine Bacteria (Auto) 4+ H Urine Yeast Not Reportable 03/15/19 03/15/19 03/15/19 06:13 06:13 09:42 WBC 10.22 RBC 3.62 L Hgb 10.5 L Hct 30.7 L MCV 84.8 MCH 29.0 MCHC 34.2 RDW Std Deviation 49.8 H RDW Coeff of Lucila 15.9 H Plt Count 207 MPV 10.1 Immature Gran % (Auto) 0.3 Neut % (Auto) 78.8 Lymph % (Auto) 5.4 Owen % (Auto) 15.0 Eos % (Auto) 0.4 Baso % (Auto) 0.1 Immature Gran # (Auto) 0.03 H Neut # (Auto) 8.06 H Lymph # (Auto) 0.55 L Owen # (Auto) 1.53 H Eos # (Auto) 0.04 Baso # (Auto) 0.01 ESR > 90 H Sodium Potassium Chloride Carbon Dioxide Anion Gap BUN Creatinine Est Cr Clr Drug Dosing Est GFR ( Amer) Est GFR (Non-Af Amer) BUN/Creatinine Ratio Glucose POC Lactic Acid Jesús Calcium Magnesium Total Creatine Kinase 57 Troponin I Lipase Procalcitonin Urine Color Urine Appearance Urine pH Ur Specific [place] Urine Protein Urine Glucose (UA) Urine Ketones Urine Blood Urine Nitrite Urine Bilirubin Urine Urobilinogen Ur Leukocyte Esterase Urine WBC (Auto) Urine RBC (Auto) U Hyaline Cast (Auto) U Epithel Cells (Auto) Urine Bacteria (Auto) Urine Yeast (1) Sepsis Sepsis type: sepsis due to unspecified organism Qualified Code(s): A41.9 - Sepsis, unspecified organism
--- NOTE | 2019-03-15 18:34 | Infectious Disease Consult ---
Date of Consultation March 15, 2019 Assessment & Plan (1) Gram negative sepsis: 73-year-old male with gram-negative sepsis with probable osteomyelitis as well as urinary tract infection. Given highly resistant pseudomonal isolate in the past, ceftolozane-tazobactam appropriate pending final identification and sensitivity of gram-negative isolate is in urine and blood. Recommend evaluation by wound care and orthopedic surgery. Will follow. (2) UTI (urinary tract infection): (3) Osteomyelitis: History of Present Illness Reason for Consultation: Multidrug-resistant wound culture Attending Physician: Shawanda Tomas MD History of Present Illness 73-year-old male with complicated medical history including schizoaffective disorder, hyperlipidemia, coronary artery disease status post SC, history of DVT and IVC filter placement, urinary retention with chronic Childs placement, recurrent urinary tract infections, who was admitted for initiation of IV antibiotics for nonhealing decubitus wounds. Patient has had several weeks of worsening decubitus ulcerations, and most recent cultures have grown a highly resistant Pseudomonas MRSA. No reported fever, but patient has become increasingly agitated and encephalopathic. Has been started empirically on Zerbaxa and daptomycin. Currently afebrile and hemodynamically stable. Blood cultures now growing gram-negative bacilli. CT of the hip shows evidence of osteomyelitis. Allergies Allergy/AdvReac Type Severity Reaction Status Date / Time iodine Allergy Unknown Unknown Verified 03/14/19 09:45 onion AdvReac Intermediate vomitting Verified 03/14/19 09:45 Home Medications Home Medications Medication Instructions Recorded Confirmed Type B [id number] 1 tab PO DAILY 03/14/19 03/14/19 History Eliquis 5 mg PO BID 03/14/19 03/14/19 History Milk of Magnesia 30 ml PO UD PRN 03/14/19 03/14/19 History Nutritional Frozen Dessert 1 dose PO TIDM 03/14/19 03/14/19 History Perative 0 ea FEEDING TUBE UD 03/14/19 03/14/19 History Probiotic 0 mmu cells PO BID 03/14/19 03/14/19 History Protein Nutritional Shake 60 ea PO BID 03/14/19 03/14/19 History Protonix 40 mg PO DAILY 03/14/19 03/14/19 History acetaminophen [Tylenol] 650 mg PO Q4 PRN 03/14/19 03/14/19 History baclofen 5 mg PO TID 03/14/19 03/14/19 History bisacodyl [Dulcolax (bisacodyl)] 10 mg [place] UD PRN 03/14/19 03/14/19 History divalproex 500 mg PO BID 03/14/19 03/14/19 History docusate sodium 100 mg PO BID 03/14/19 03/14/19 History fentanyl [Duragesic] 1 patch TOPICAL [id number] 03/14/19 03/14/19 History ferrous sulfate 325 mg PO BID 03/14/19 03/14/19 History folic acid 1 mg PO DAILY 03/14/19 03/14/19 History levothyroxine [Synthroid] 25 mcg PO DAILY 03/14/19 03/14/19 History melatonin 3 mg PO HS 03/14/19 03/14/19 History metoprolol succinate [Toprol XL] 25 mg PO DAILY 03/14/19 03/14/19 History oxycodone [Roxicodone] 5 mg PO Q6H 03/14/19 03/14/19 History thiamine HCl (vitamin B1) 100 mg PO DAILY 03/14/19 03/14/19 History tramadol [Ultram] 50 mg PO Q6 PRN 03/14/19 03/14/19 History Patient History Medical History Coronary artery disease (Chronic) s/p SC 2007 Chronic systolic CHF (congestive heart failure) (Chronic) GERD (gastroesophageal reflux disease) (Chronic) Hypothyroidism (Chronic) Anxiety (Chronic) Schizoid personality disorder (Chronic) Decubitus ulcer (Chronic) multiple, chronic Osteomyelitis (Acute) right femoral head Aug 2018 treated with 6 wks vanco + ertapenem Wound infection (Acute) Pseudomonas PEG site October 2018 History of ESBL E. coli infection (Resolved) Aug 2018, + blood and urine cultures Urethral trauma (Acute) Aug 2018. Childs cath. Severe protein-calorie malnutrition (Chronic) Dyslipidemia (Chronic) Chronic pain (Chronic) History of DVT (deep vein thrombosis) (Chronic) LLE 2017 Anxiety (Chronic) HTN (hypertension) (Chronic) Hypothyroidism (Chronic) GERD (gastroesophageal reflux disease) (Chronic) Anemia (Chronic) Schizoid personality disorder (Chronic) Myocardial infarction (Chronic) Dyslipidemia (Chronic) History of electroconvulsive therapy (Chronic) History of MDR Pseudomonas aeruginosa infection (Acute) Hx MRSA infection (Acute) History of Clostridium difficile colitis (Chronic) Bacteremia C. 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 Beliefs That Will Affect Care: None marital status: Unknown Current Living Situation: Assisted Current Living Situation Comment: [place] Feels Safe at Home: Declines to Answer Smoking Status: Unknown if ever smoked Hx Alcohol Use: No Hx Substance Use: No Review of Systems Review of Systems: Unobtainable due to mental health condition Physical Exam Constitutional: WD/WN, vitals as above comfortable; no acute distress Eyes: PERRL, conjunctivae normal, anicteric sclerae ENMT: external ear and nose normal, oropharynx normal Neck: trachea midline, no thyromegaly neck nontender Respiratory: normal respiratory effort, lungs clear to auscultation normal percussion; does not use accessory muscles Cardiovascular: Rate/Rhythm: regular rate and regular rhythm Heart Sounds: normal S1 and normal S2; no gallop, no murmur and no cardiac rub Vessels: normal peripheral pulses; no JVD Gastrointestinal (Abdomen): normal bowel sounds, soft, nontender, no hepatosplenomegaly Musculoskeletal: no cyanosis or clubbing, extremities motor strength 5/5 Spine: thoracic spine normal to inspection and lumbar spine normal to inspection; no cervical spinal tenderness Skin: + ulcer (Multiple skin ulcerations of the lower extremities and feet, some with surr) and + wound (Deep wound left hip with some foul-smelling drainage); no rashes Neurologic: patellar DTR's 2+ bilat, sensation intact no focal motor deficits Psychiatric: A+Ox3, euthymic affect Orientation: cooperative Lymphatic: no cervical or axillary lymphadenopathy no inguinal lymphadenopathy Results & Data Vital Signs (Past 12 Hours) Vital Signs Temp Pulse Resp BP Pulse Ox 03/15/19 14:53 36.9 C 88 22 134/76 95 03/15/19 11:29 36.6 C 71 16 107/67 97 03/15/19 07:48 36.5 C 86 22 121/63 96 Laboratory Results Short CBC 03/15/19 Range/Units 06:13 WBC 10.22 (4.8-10.8) K/uL Hgb 10.5 L (14.0-18.0) g/dL Hct 30.7 L (42-52) % Plt Count 207 (130-400) K/uL BMP 03/14/19 03/15/19 22:35 06:13 Sodium 139 D 142 Potassium 5.1 D 5.0 Chloride 108 H 112 H Carbon Dioxide 20 L 21 BUN 108 H 105 H Creatinine 3.15 H 2.90 H Glucose 78 82 Calcium 8.3 L 8.3 L Cardiac Enzymes 03/15/19 Range/Units 09:42 Total Creatine Kinase 57 (39-308) U/L Diagnostic Findings Microbiology 03/14/19 Unknown Urine,Clean Catch Urine Culture - Preliminary Gram negative bacilli CT SCAN OF THE LEFT TIBIA AND FIBULA WITHOUT IV CONTRAST; CT SCAN OF THE RIGHT TIBIA AND FIBULA IV CONTRAST CLINICAL HISTORY: Left lower extremity infection. Pretibial wounds. COMPARISON STUDY: No priors. TECHNIQUE: CT scan of the left tibia and fibula as well as CT scan of the right tibia and fibula is performed from the distal femur to the ankle joint. Images are reviewed in the axial, sagittal, and coronal planes. IV contrast was not missed report for this examination. A dose lowering technique was utilized adhering to the principles of ALARA. The examination is severely compromised by patient contractures and inability to properly position the patient. Interpretation is also suboptimal without Plain film correlate. CT DOSE: 1583.34 mGy.cm FINDINGS: The skeletal structures are heterogeneously osteopenic. There is no evidence of fracture of the right or left tibia and fibula. No bony erosion or periostitis is clearly identified involving the right or left tibia or fibula. The knee and ankle joints are grossly maintained bilaterally noting significant degenerative change. The majority of the right femur and right hip are included. There is extensive destructive change involving the right proximal femur, with fragmentation of the femoral head, neck, intertrochanteric region, and proximal shaft. Destructive change and erosion is also identified within the right acetabulum. A cutaneous wound overlies the right hip and appears to extend towards the joint space. There is surrounding soft tissue inflammation and fluid. Advanced atherosclerotic calcification is seen within the lower extremity arteries bilaterally. A Childs catheter is in place. Gas is noted within the bladder lumen. The bladder wall appears thickened and there is pericystic stranding. Rectosigmoid fecal impaction is partially imaged. There is generalized atrophy of the lower extremity musculature with mild soft tissue edema. No organized fluid collection is identified within either leg. No subcutaneous gas is seen. A small wound is suggested in the pretibial soft tissues on the right. The left pretibial wound is not well imaged. IMPRESSION: 1. Significantly degraded examination due to patient contracture and inability to properly position the patient. 2. No acute bony abnormality is identified involving the right or left tibia and fibula. Specifically, there is no convincing CT evidence of tibial or fibular osteomyelitis in either leg. 3. Extensive destructive change is seen involving the right proximal femur and the right acetabulum with an overlying wound. There is superficial and deep soft tissue fluid and inflammation identified around the left hip. Acute versus chronic infection/osteomyelitis is not excluded. Clinical correlation will be required. 4. The bladder wall is thickened and there is pericystic inflammation. Correlate clinically and with urinalysis for evidence of cystitis. 5. There is rectosigmoid fecal impaction. 6. Mild soft tissue edema is present throughout both legs. A pretibial wound is suggested on the right. No organized fluid collection is suggested in either lower extremity. Electronically signed by: Prabhjot Sarmiento M.D. 03/14/2019 6:51 PM Dictated: 03/14/191829 Transcribed: 03/14/19 183 PG Care Time/CCT Total # of Minutes Spent Total Time Spent with Patient: Total time spent is greater than 50% in coordination of care (as documented) at patient's floor/unit and/or counseling patient: (1) UTI (urinary tract infection) Hematuria presence: without hematuria Urinary tract infection type: site unspecified Qualified Code(s): N39.0 - Urinary tract infection, site not specified (2) Osteomyelitis Osteomyelitis location: unspecified site Osteomyelitis type: unspecified type Qualified Code(s): M86.9 - Osteomyelitis, unspecified
--- NOTE | 2019-03-15 18:35 | Emergency Department Note ---
Entered by Sushila Varma acting as a scribe for History of Present Illness General Chief complaint: Infection Stated complaint: mtu Time Seen by Provider: 03/14/19 15:41 Source: other (nursing staff) Limitations: altered mental status History of Present Illness Onset (ago): week(s) (a few weeks ago) Pain Consistency: + other (episode) Quality: + other (infection) Associated symptoms: + other (agitation) The patient is a 73 year old male who presents to the Emergency Room with complaints of an episode of an infection starting a few weeks ago. Per the nursing staff, the patient has a history of Osteomyelitis and has been positive for MRSA and pseudomonas recently. She states that the patient was sent to the [facility] to have a PICC placed to start IV antibiotics, but the patient was so agitated they couldnt perform the procedure. She reports that they decided to give him Valium and do a direct admission, but when they called Dr. Barrera, she said he needed to come to the ED. HPI and ROS are limited secondary to altered mental status. Home Medications Home Medications Medication Instructions Recorded Confirmed Type B [id number] 1 tab PO DAILY 03/14/19 03/14/19 History Milk of Magnesia 30 ml PO UD PRN 03/14/19 03/14/19 History Nutritional Frozen Dessert 1 dose PO TIDM 03/14/19 03/14/19 History acetaminophen [Tylenol] 650 mg PO Q4 PRN 03/14/19 03/14/19 History apixaban [Eliquis] 5 mg PO BID 03/14/19 03/14/19 History baclofen 5 mg PO TID 03/14/19 03/14/19 History bisacodyl [Dulcolax (bisacodyl)] 10 mg [place] UD PRN 03/14/19 03/14/19 History divalproex 500 mg PO BID 03/14/19 03/14/19 History docusate sodium 100 mg PO BID 03/14/19 03/14/19 History fentanyl [Duragesic] 1 patch TOPICAL [id number] 03/14/19 03/14/19 History ferrous sulfate 325 mg PO BID 03/14/19 03/14/19 History folic acid 1 mg PO DAILY 03/14/19 03/14/19 History food supplemt, lactose-reduced 60 ea PO BID 03/14/19 03/14/19 History [Protein Nutritional Shake] lactobacillus combination no.4 0 mmu cells PO BID 03/14/19 03/14/19 History [Probiotic] levothyroxine [Synthroid] 25 mcg PO DAILY 03/14/19 03/14/19 History melatonin 3 mg PO HS 03/14/19 03/14/19 History metoprolol succinate [Toprol XL] 25 mg PO DAILY 03/14/19 03/14/19 History nut.tx. metabolic disorder,soy 0 ea FEEDING TUBE UD 03/14/19 03/14/19 History [Perative] oxycodone [Roxicodone] 5 mg PO Q6H 03/14/19 03/14/19 History pantoprazole [Protonix] 40 mg PO DAILY 03/14/19 03/14/19 History thiamine HCl (vitamin B1) 100 mg PO DAILY 03/14/19 03/14/19 History tramadol [Ultram] 50 mg PO Q6 PRN 03/14/19 03/14/19 History Allergies Allergy/AdvReac Type Severity Reaction Status Date / Time iodine Allergy Unknown Unknown Verified 03/14/19 09:45 onion AdvReac Intermediate vomitting Verified 03/14/19 09:45 Past Med/Surg History Medical History Coronary artery disease (Chronic) s/p MT 2007 Chronic systolic CHF (congestive heart failure) (Chronic) GERD (gastroesophageal reflux disease) (Chronic) Hypothyroidism (Chronic) Anxiety (Chronic) Schizoid personality disorder (Chronic) Decubitus ulcer (Chronic) multiple, chronic Osteomyelitis (Acute) right femoral head Aug 2018 treated with 6 wks vanco + ertapenem Wound infection (Acute) Pseudomonas PEG site October 2018 History of ESBL E. coli infection (Resolved) Aug 2018, + blood and urine cultures Urethral trauma (Acute) Aug 2018. Childs cath. Severe protein-calorie malnutrition (Chronic) Dyslipidemia (Chronic) Chronic pain (Chronic) History of DVT (deep vein thrombosis) (Chronic) LLE 2017 Anxiety (Chronic) HTN (hypertension) (Chronic) Hypothyroidism (Chronic) GERD (gastroesophageal reflux disease) (Chronic) Anemia (Chronic) Schizoid personality disorder (Chronic) Myocardial infarction (Chronic) Dyslipidemia (Chronic) History of electroconvulsive therapy (Chronic) History of MDR Pseudomonas aeruginosa infection (Acute) Hx MRSA infection (Acute) History of Clostridium difficile colitis (Chronic) Bacteremia C. difficile colitis DVT (deep venous thrombosis) Depression Esophagitis Childs catheter in place Iron deficiency Osteomyelitis Pressure ulcer of ankle, right, unstageable Pressure ulcer of sacral region, stage 4 Surgical History History of appendectomy (Chronic) Status post insertion of inferior vena caval filter (Chronic) Status post insertion of percutaneous endoscopic gastrostomy (PEG) tube (Chronic) Sep 2018 S/P PICC central line placement Family History Other Family history non-contributory Social History Preferred Language: Nigerien Communication Ability: Impaired Alum Mixer Required: No Beliefs That Will Affect Care: None marital status: Unknown Current Living Situation: Residential Current Living Situation Comment: [place] Feels Safe at Home: Declines to Answer Smoking Status: Unknown if ever smoked Hx Alcohol Use: No Hx Substance Use: No Review of Systems HPI and ROS are limited secondary to altered mental status. Physical Exam Vital Signs Vital Signs - 24 hr 03/14/19 18:39 03/14/19 19:00 03/14/19 19:02 Pulse Rate 96 H 90 100 H Respiratory Rate 31 H 36 H 26 H Blood Pressure 115/84 Blood Pressure Mean 106 94 03/14/19 19:30 Pulse Rate 87 Respiratory Rate 26 H Blood Pressure Blood Pressure Mean GENERAL: alert, ill appearing, no distress, somnolent EYE EXAM: normal conjunctiva, PERRL and EOM's grossly intact OROPHARYNX: no exudate, no erythema, lips, buccal mucosa, and tongue normal and mucous membranes are dry NECK: supple, no nuchal rigidity, no adenopathy, non-tender LUNGS: Clear to auscultation. Normal chest wall mechanics, no w/r/r, poor inspiratory effort HEART: no murmurs, S1 normal and S2 normal ABDOMEN: abdomen soft, non-tender, feeding tube in abdomen, normo-active bowel sounds, no masses, no rebound or guarding. BACK: Back is symmetrical on inspection and there is no deformity, no midline tenderness, no CVA tenderness. SKIN: no rashes and no bruising, petechaie UPPER EXTREMITIES: upper extremities are grossly normal. FROM, nml pulses b/l LOWER EXTREMITIES: No pitting edema. Have cushioned boots bilaterally. Pretibial wound noted bilaterally. Dressings in place. Symmetric distal pulses bilaterally. Mild contractures noted. NEURO EXAM: Somnolent. Opens eyes to voice. Localizes pain. Otherwise unable to perform neuro testing. Course 1646: Past medical records reviewed. The patient was evaluated in room C3. A complete history and physical exam was performed. Labs drawn and sent from the [facility] were reviewed in the EMR. 1713: I discussed the patient's case with Dr. Norma CHRISTIANSON. He explained the same story that nursing staff received. He is unsure if the patient has a history of osteomyelitis. Is not aware of the culture sensitivities only the organism found. Had concern regarding evolving ulceration/infection to the distal bi lateral lower extremities. 1753: I discussed te patient's case with RAMOS Mcintyre Hospitalist. She will evaluate the patient for further management. Blood pressure has been improved with IV fluids. Patient appears slightly more alert and arouses easier. Heart rate in the 70s, normal sinus rhythm. Patient's oxygen is 95% on room air. 1814: I reevaluated the patient and his blood pressure has improved. He was going to CT now. 1915: Dr. Aydee Coburn called me about the results of the CT. Chronic appearing osteomyelitis and erosion to the proximal femur and hip on the right. Consultations Consultation #1: I discussed the patient's case with Dr. Norma CHRISTIANSON. He explained the same story that nursing staff received. Time: 17:13 Consultation #2: I discussed te patient's case with RAMOS Mcintyre Hospitalist. She will evaluate the patient for further management. Time: 17:53 Consultation #3: Dr. Aydee Coburn called me about the results of the CT. Time: 19:15 Administered Medications Apixaban (Eliquis) 5 mg PO BID [facility] Stop: 04/13/19 22:20 Last Admin: 03/15/19 07:44 Dose: 5 mg Documented by: [id number] Admin: 03/14/19 23:46 Dose: 5 mg Documented by: [id number] Baclofen (Lioresal) 5 mg PO TID [facility] Stop: 04/13/19 22:20 Last Admin: 03/15/19 13:11 Dose: 5 mg Documented by: [id number] Admin: 03/15/19 07:43 Dose: 5 mg Documented by: [id number] Admin: 03/14/19 23:48 Dose: 5 mg Documented by: [id number] Divalproex Sodium (Depakote Sprinkle) 500 mg PO BID [facility] Stop: 04/13/19 22:20 Last Admin: 03/15/19 07:44 Dose: 500 mg Documented by: [id number] Admin: 03/14/19 23:47 Dose: 500 mg Documented by: [id number] Docusate Sodium (Colace) 100 mg PO BID [facility] Stop: 04/13/19 22:20 Last Admin: 03/15/19 07:44 Dose: 100 mg Documented by: [id number] Admin: 03/14/19 23:49 Dose: 100 mg Documented by: [id number] Fentanyl (Duragesic) 25 mcg TD Q3D@2200 [facility] Stop: 03/28/19 21:59 Last Admin: 03/14/19 23:59 Dose: 25 mcg Documented by: [id number] Folic Acid (Folvite) 1 mg PO DAILY [facility] Stop: 04/14/19 08:59 Last Admin: 03/15/19 07:43 Dose: 1 mg Documented by: [id number] Sodium Chloride (Nss 1000ml) 1,000 mls @ 125 mls/hr IV .Q8H [facility] Stop: 04/13/19 20:59 Last Admin: 03/15/19 13:10 Dose: 125 mls/hr Documented by: [id number] Infusion: 03/15/19 13:10 Dose: 125 mls/hr Documented by: [id number] Admin: 03/15/19 07:46 Dose: 125 mls/hr Documented by: [id number] Infusion: 03/15/19 07:33 Dose: 125 mls/hr Documented by: [id number] Admin: 03/14/19 23:33 Dose: 125 mls/hr Documented by: [id number] Ceftolozane/Tazobactam 375 mg/ (Dextrose) 102.85 mls @ 111.4 mls/hr IV Q8H [facility]; Protocol Stop: 03/17/19 01:59 Last Infusion: 03/15/19 17:53 Dose: 0 mls/hr Documented by: [id number] Admin: 03/15/19 16:57 Dose: 111.4 mls/hr Documented by: [id number] Infusion: 03/15/19 10:44 Dose: 0 mls/hr Documented by: [id number] Admin: 03/15/19 09:48 Dose: 111.4 mls/hr Documented by: [id number] Infusion: 03/15/19 02:56 Dose: 0 mls/hr Documented by: [id number] Admin: 03/15/19 01:58 Dose: 111.4 mls/hr Documented by: [id number] [facility] Stop: 04/14/19 06:29 Last Admin: 03/15/19 05:55 Dose: 25 mcg Documented by: [id number] Metoprolol Succinate (Toprol Xl) 25 mg PO DAILY [facility] Stop: 04/14/19 08:59 Last Admin: 03/15/19 07:43 Dose: 25 mg Documented by: [id number] Miscellaneous (Fentanyl Patch Check Placement) 1 ea N/A QS [facility] Stop: 04/14/19 00:00 Last Admin: 03/15/19 16:20 Dose: 1 ea Documented by: [id number] Admin: 03/15/19 07:46 Dose: 1 ea Documented by: [id number] Admin: 03/15/19 00:01 Dose: 1 ea Documented by: [id number] Miscellaneous (Fentanyl Patch Remove & Waste) 1 ea N/A Q3D@2200 [facility] Stop: 04/13/19 21:59 Last Admin: 03/14/19 23:59 Dose: 1 ea Documented by: [id number] Cosigned by: [id number] Pantoprazole Sodium (Protonix) 40 mg PO DAILY [facility] Stop: 04/14/19 08:59 Last Admin: 03/15/19 07:43 Dose: 40 mg Documented by: [id number] Thiamine HCl (Vitamin B-1) 100 mg PO DAILY [facility] Stop: 04/14/19 08:59 Last Admin: 03/15/19 07:42 Dose: 100 mg Documented by: [id number] Discontinued Medications Calcium Chloride (Calcium Chloride 10%) Confirm Administered Dose 1,000 mg IV .STK-MED ONE Stop: 03/14/19 18:09 Last Admin: 03/14/19 18:33 Dose: 1,000 mg Documented by: [id number] Dextrose (Dextrose 50%) 50 ml IV NOW ONE Stop: 03/14/19 18:00 Last Admin: 03/14/19 18:33 Dose: 50 ml Documented by: [id number] Sodium Chloride (Nss 1000ml) 1,000 mls @ 999 mls/hr IV .Q1H1M ONE Stop: 03/14/19 17:13 Last Infusion: 03/14/19 19:37 Dose: 0 mls/hr Documented by: [id number] Admin: 03/14/19 18:35 Dose: 999 mls/hr Documented by: [id number] Ceftolozane/Tazobactam 375 mg/ (Dextrose) 102.85 mls @ 111.4 mls/hr IV NOW STA Stop: 03/14/19 18:29 Last Infusion: 03/14/19 19:37 Dose: 0 mls/hr Documented by: [id number] Admin: 03/14/19 18:35 Dose: 111.4 mls/hr Documented by: [id number] Daptomycin 425 mg/ Syringe 8.5 mls @ 0 mls/min IV NOW ONE; Protocol Stop: 03/14/19 17:46 Last Admin: 03/14/19 18:34 Dose: 5 mls/min Documented by: [id number] Calcium Gluconate 1,000 mg/ (Sodium Chloride) 60 mls @ 240 mls/hr IV NOW STA Stop: 03/14/19 18:28 Last Admin: 03/14/19 19:06 Dose: Not Given Documented by: [id number] Sodium Chloride (Nss 1000ml) 1,000 mls @ 999 mls/hr IV .Q1H1M ONE Stop: 03/14/19 21:53 Last Admin: 03/14/19 23:54 Dose: Not Given Documented by: [id number] Insulin Human Regular (Novolin R U-100 Per Unit) 10 units IV NOW STA Stop: 03/14/19 18:00 Last Admin: 03/14/19 18:32 Dose: 10 units Documented by: [id number] Cosigned by: [id number] Miscellaneous (Patient's Height And/Or Weight Needed) 1 ea N/A Q2H [facility] Stop: 04/13/19 23:14 Last Admin: 03/14/19 23:33 Dose: 1 ea Documented by: [id number] Medical Decision Making Differential Diagnosis Differential Diagnosis includes but is not limited to dehydration, stroke, anemia, hypoglycemia, hyponatremia, hypernatremia, urinary tract infection, pneumonia, bronchitis, sepsis, gastroenteritis, additional abdominal pathology, metabolic abnormalities and infections. Medical Records Attestation: I reviewed the patient's medical records. Home Medications Current Medication List: was personally reviewed by me Laboratory Data Attestation: I reviewed the patient's lab results. Result diagrams: 03/15/19 06:13 03/15/19 06:13 Lab Results 03/14/19 03/14/19 03/14/19 Range/Units 17:05 17:16 19:24 POC Lactic Acid Jesús 1.12 (0.90-1.70) mmol/L Magnesium 2.4 (1.8-2.4) mg/dl Troponin I < 0.015 (0-0.045) ng/ml Lipase 57 L (73-393) U/L Procalcitonin 3.23 H (0-0.5) ng/ml Imaging Data Radiologist's Impression: Radiology results as stated below per my review and the radiologist's interpretation: XR chest 1V portable CLINICAL HISTORY: 73 years-old Male presenting with agitation. TECHNIQUE: Portable upright AP view of the chest was obtained. COMPARISON: 10/25/2018. FINDINGS: Atherosclerosis of the aortic arch. Cardiac silhouette top normal in size. Mildly low lung volumes with hypoventilatory changes. Increased bibasilar opacities. No large effusion or pneumothorax. Degenerative changes of the thoracic spine. Mild gaseous distention of colon. IMPRESSION: 1. Increased bibasilar infiltrates possibly atelectasis or less likely aspiration. 2. Low lung volumes with hypoventilatory changes. 3. Gaseous distention of bowel. Electronically signed by: Carmelo Adhikari M.D. 03/14/2019 4:[address] SCAN OF THE LEFT TIBIA AND FIBULA WITHOUT IV CONTRAST; CT SCAN OF THE RIGHT TIBIA AND FIBULA IV CONTRAST CLINICAL HISTORY: Left lower extremity infection. Pretibial wounds. COMPARISON STUDY: No priors. TECHNIQUE: CT scan of the left tibia and fibula as well as CT scan of the right tibia and fibula is performed from the distal femur to the ankle joint. Images are reviewed in the axial, sagittal, and coronal planes. IV contrast was not missed report for this examination. A dose lowering technique was utilized adhering to the principles of ALARA. The examination is severely compromised by patient contractures and inability to properly position the patient. Interpretation is also suboptimal without Plain film correlate. CT DOSE: 1583.34 mGy.cm FINDINGS: The skeletal structures are heterogeneously osteopenic. There is no evidence of fracture of the right or left tibia and fibula. No bony erosion or periostitis is clearly identified involving the right or left tibia or fibula. The knee and ankle joints are grossly maintained bilaterally noting significant degenerative change. The majority of the right femur and right hip are included. There is extensive destructive change involving the right proximal femur, with fragmentation of the femoral head, neck, intertrochanteric region, and proximal shaft. Destructive change and erosion is also identified within the right acetabulum. A cutaneous wound overlies the right hip and appears to extend towards the joint space. There is surrounding soft tissue inflammation and fluid. Advanced atherosclerotic calcification is seen within the lower extremity arteries bilaterally. A Childs catheter is in place. Gas is noted within the bladder lumen. The bladder wall appears thickened and there is pericystic stranding. Rectosigmoid fecal impaction is partially imaged. There is generalized atrophy of the lower extremity musculature with mild soft tissue edema. No organized fluid collection is identified within either leg. No subcutaneous gas is seen. A small wound is suggested in the pretibial soft tissues on the right. The left pretibial wound is not well imaged. IMPRESSION: 1. Significantly degraded examination due to patient contracture and inability to properly position the patient. 2. No acute bony abnormality is identified involving the right or left tibia and fibula. Specifically, there is no convincing CT evidence of tibial or fibular osteomyelitis in either leg. 3. Extensive destructive change is seen involving the right proximal femur and the right acetabulum with an overlying wound. There is superficial and deep soft tissue fluid and inflammation identified around the left hip. Acute versus chronic infection/osteomyelitis is not excluded. Clinical correlation will be required. 4. The bladder wall is thickened and there is pericystic inflammation. Correlate clinically and with urinalysis for evidence of cystitis. 5. There is rectosigmoid fecal impaction. 6. Mild soft tissue edema is present throughout both legs. A pretibial wound is suggested on the right. No organized fluid collection is suggested in either lower extremity. Electronically signed by: Prabhjot Sarmiento M.D. 03/14/2019 6:51 PM Blood Pressure Blood Pressure Findings: Normal blood pressure Blood Pressure Disposition: did not require urgent referral MDM Narrative Patient presenting here after difficulty establishing PEG site and MTU and unable to be directly admitted. Patient chronically ill-appearing and concern initially for evolving sepsis due to known positive wound cultures requiring antibiotics and borderline hypotension seen initially. Patient appeared clinically dehydrated and after labs and cultures were reviewed as they had been drawn in the MTU prior to his transfer to the emergency room, and a peripheral IV was established here and IV fluids were immediately started. Patient did respond to IV fluids and he had to liter boluses of normal saline and was then started on maintenance IV fluids to equal his 30 mL/KG requirements for sepsis. Patient's lactic acid reassuring although he still had a leukocytosis. Procalcitonin added to blood work. Patient found to have new renal failure as his prior creatinine had been 0.8 and today's was greater than 3. I feel this is most likely related to his dehydration and infection. Patient was unable to provide any additional history so extensive time was spent contacting other providers and investigating records from the facility to try and ascertain how the patient's condition had evolved. Difficulty assessing level mentation as elda rogeljeny with a prior history of schizoaffective disorder and now likely altered due to the Valium he was given in the MTU. Patient's hyperkalemia likely from new renal failure. No ectopy or peak T waves noted on EKG or telemetry. Patient was given calcium IV, dextrose and insulin. Lasix was avoided due to underlying renal dysfunction. Impression & Plan Sepsis, Acute renal failure (ARF), Osteomyelitis, Dehydration, Hyperkalemia, Altered mental status, Infected wound Critical Care Time Critical Care Time: Yes I have personally spent 45 minutes of critical care time in the direct management of this patient. This includes bedside care, interpretation of diagnostic studies, and testing, discussion with consultants, patient, and family members, and other required patient management activities. This 45 minutes is in excess of all separately billable procedures. Discharge Plan Visit Data *Final* Discharge Date/Time: 03/14/19 21:21 Chief Complaint: Infection Stated Complaint: [facility]tu ED Provider: Anahi Stephen Discharge Problem: Sepsis, Acute renal failure (ARF), Osteomyelitis, Dehydration, Hyperkalemia, Altered mental status, Infected wound Patient Disposition: Admitted As Inpatient Discharge Instructions Interventions: ED Discharge Assessment Last Done: 03/14/19 21:21 The scribe's documentation has been prepared under my direction and personally reviewed by me in its entirety. I confirm that the note above accurately reflects all work, treatment, procedures, and medical decision making performed by me.
--- NOTE | 2019-03-15 19:13 | Hospitalist Progress Note ---
Date of Service March 15, 2019 Assessment & Plan (1) Sepsis: Severe Sepsis -possible secondary to lower extremity wound, assist with complicated UTI, has chronic indwelling Childs catheter Wound Culture: from 03/09/19: Growing Pseudomonas, MRSA Patient is continue on Zosyn/daptomycin antibiotic day #2 Blood/ Urine cultures obtained ID consulted for Input Care consulted METABOLIC/UREMIC ENCEPHALOPATHY Advanced dementia, worsening of confusion agitation secondary to infection dehydration ZAAR Secondary to severe sepsis, dehydration Hyperkalemia Received calcium gluconate, IV fluids and insulin while in ED. Potassium 5 today Continue IV fluids Nephrology Consulted Chronic systolic heart failure No signs of volume overload Monitor volume status while getting IV fluids Avoid diuretics Coronary artery disease DVT S/P IVC filter Continue Eliquis Hypothyroidism Continue levothyroxine GERD Continue PPI Schizoid personality disorder On Divalproex chronic decubitus wounds Wound Care Consulted Severe protein calorie malnutrition Continue tube feeds Dietitian consulted DVT Px: On Eliquis Code Status Full Code Disposition: Plan to discharge to [facility] when stable Subjective Patient remains very confused, agitated, Screaming at nursing staff Unable to verbalize any specific complaint Remains afebrile Episode of bradycardia noted on telemetry, patient did not have any symptom Physical Exam Constitutional: + ill appearing Very frail, disheveled elderly male Eyes: + anicteric sclerae ENMT: external ear and nose normal, oropharynx normal Neck: trachea midline, no thyromegaly Cardiovascular: Rate/Rhythm: regular rate and regular rhythm Skin: Multiple skin lesion skin tear Neurologic: Confused/agitated Results & Data Vital Signs (Past 12 Hours) Vital Signs Temp Pulse Resp BP Pulse Ox 03/15/19 14:53 36.9 C 88 22 134/76 95 03/15/19 11:29 36.6 C 71 16 107/67 97 03/15/19 07:48 36.5 C 86 22 121/63 96 (1) Sepsis Sepsis type: sepsis due to unspecified organism Qualified Code(s): A41.9 - Sepsis, unspecified organism
--- NOTE | 2019-03-15 19:15 | Hospitalist Progress Note ---
Date of Service March 15, 2019 Subjective Attending addendum: Episode of bradycardia noted, heart rate dropped to low 40s without any symptom Beta-kris discontinued Continue to monitor Shawanda Tomas MD Results & Data Vital Signs (Past 12 Hours) Vital Signs Temp Pulse Resp BP Pulse Ox 03/15/19 14:53 36.9 C 88 22 134/76 95 03/15/19 11:29 36.6 C 71 16 107/67 97 03/15/19 07:48 36.5 C 86 22 121/63 96
[2019-03-15] MEDS: PROSOURCE NO CARB 30 ML/PKT PEG SCH (20:49)
[2019-03-15] MEDS: PEPTAMEN 1.5 CAL 1,000 ML BAG PEG SCH (20:51)
[2019-03-16] MEDS: SODIUM CHLORIDE 0.9% 1000ML 1,000 ML IV SCH ×2 (01:00→08:51)
[2019-03-16] MEDS: CHECK FENTANYL PATCH PLACEMENT SCH ×4 (01:00→23:56)
[2019-03-16] MEDS: CEFTOLOZANE/TAZOBACTAM 375 MG in DEXTROSE 5% 100 ML IV SCH ×2 (02:25→10:17)
[2019-03-16] MEDS ORDERED: PNEUMOCOCCAL POLYSACCHARIDES 25 MCG/0.5 ML VIAL/SYR IM ONE (05:00)
[2019-03-16] MEDS ORDERED: PNEUMOCOCCAL ADMINISTRATION CHARGE ONE (05:00)
[2019-03-16] MEDS: [UNRECOGNIZED DRUG - REMARK] SCH (05:51)
[2019-03-16] MEDS: LEVOTHYROXINE SODIUM 25 MCG TABLET PO SCH (05:51)
[2019-03-16 06:30] LABS: Mean Corpuscular Hgb Conc 33.3 g/dL (32-36); Mean Corpuscular Volume 86.5 fL (80-100); Platelet Count 207 K/uL (130-400); RDW Coefficient of Variation 15.9 % (11.5-14.5); RDW Standard Deviation 50.6 fL (36.4-46.3); Red Blood Count 3.47 M/uL (4.7-6.1); White Blood Count 6.36 K/uL (4.8-10.8)
[2019-03-16 07:02] LABS: BUN Creatinine Ratio 44.1 (10-20); Calcium 7.8 mg/dl (8.5-10.1); Creatinine Clr Calc Pharmacy 33.5 ml/min; Est GFR (African American) 38.9; Est GFR (Non-African American) 33.6; Potassium 4.2 mmol/L (3.5-5.1)
[2019-03-16] MEDS: APIXABAN 5 MG TABLET PO SCH ×2 (08:49→20:37)
[2019-03-16] MEDS: PANTOprazole 40 MG TAB PO SCH (08:49)
[2019-03-16] MEDS: DOCUSATE SODIUM 100 MG CAP PO SCH ×2 (08:50→20:36)
[2019-03-16] MEDS: FOLIC ACID 1 MG TAB PO SCH (08:50)
[2019-03-16] MEDS: THIAMINE HCL 100 MG TAB PO SCH (08:50)
[2019-03-16] MEDS: DIVALPROEX SODIUM SPRINKLE 125 MG CAP PO SCH ×2 (08:50→20:37)
[2019-03-16] MEDS: PROSOURCE NO CARB 30 ML/PKT PEG SCH ×2 (08:58→20:37)
[2019-03-16] MEDS: D5W AND 1/2NSS 1,000 ML IV SCH ×2 (10:18→23:17)
[2019-03-16] MEDS: DAPTOmycin 425 MG in SYRINGE 0 ML IV SCH (13:21)
--- NOTE | 2019-03-16 16:32 | Nephrology Progress Note ---
Date of Service March 16, 2019 Assessment & Plan (1) Acute kidney injury: Patient with ZARA likely due to ischemic ATN in setting of sepsis. He was hypotensive on admission. BP is better today. Cr improving with iv fluids down to 1.9. Stop iv normal saline. Change to D5 half NS. Monitor input/output and daily BMP. No need for HD and patient not a good candidate for HD. (2) Acute hyperkalemia: Due to ZARA. K better today at 4.2. Continue insulin/dextrose as needed for k above 5.5. He should be on a K restricted diet. (3) Sepsis: He is antibiotics per primary team. renally dose antibiotics for GFR less than 15ml/min. Avoid hypotension Subjective Seen in follow up for ZARA. Does not give history due to mental status. Cr better today. Review of Systems Review of Systems: Unobtainable due to mental health condition Physical Exam Physical Exam: General exam: Appears comfortable, no acute distress HEENT: Pupils are equal and reactive to light Neck: No JVD, neck is supple trachea is midline Respiratory system: Clear breath sounds bilaterally. Gastrointestinal: Abdomen is soft, non distended, non tender, bowel sounds are present CVS: Regular rate and rhythm. No murmurs, rubs or gallops Musculoskeletal: No joint or muscle tenderness Extremities: Non tender, no edema, peripheral pulses are present Neuro: has contractures Skin: No rashes, bed sores Results & Data Vital Signs (Past 12 Hours) Vital Signs Temp Pulse Pulse Resp BP BP Pulse Ox 03/16/19 16:15 37.3 C 88 21 168/65 H 97 03/16/19 11:05 38.1 C H 88 26 H 172/69 H 97 03/16/19 08:30 36.9 C 84 18 138/67 96 03/16/19 04:40 36.8 C 81 19 126/68 94 Laboratory Results Laboratory Results - last 24 hr 03/16/19 03/16/19 05:45 05:45 WBC 6.36 RBC 3.47 L Hgb 10.0 L Hct 30.0 L MCV 86.5 MCH 28.8 MCHC 33.3 RDW Std Deviation 50.6 H RDW Coeff of Lucila 15.9 H Plt Count 207 MPV 10.0 Sodium 149 H Potassium 4.2 D Chloride 119 H Carbon Dioxide 21 Anion Gap 9.0 BUN 86 H Creatinine 1.94 H D Est Cr Clr Drug Dosing 33.5 Est GFR ( Amer) 38.9 Est GFR (Non-Af Amer) 33.6 BUN/Creatinine Ratio 44.1 H Glucose 137 H Calcium 7.8 L (1) Sepsis Sepsis type: sepsis due to unspecified organism Qualified Code(s): A41.9 - Sepsis, unspecified organism
[2019-03-16] MEDS: CEFTOLOZANE/TAZOBACTAM 750 MG in DEXTROSE 5% 100 ML IV SCH (16:57)
--- NOTE | 2019-03-16 19:23 | Hospitalist Progress Note ---
Date of Service March 16, 2019 Assessment & Plan (1) Sepsis: Severe Sepsis -possible secondary to lower extremity wound, assist with complicated UTI, has chronic indwelling Childs catheter Wound Culture: from 03/09/19: Growing Pseudomonas, MRSA Patient is continue on Zosyn/daptomycin antibiotic day #3 Blood/ Urine cultures obtained ID consulted for Input Wound care consulted METABOLIC/UREMIC ENCEPHALOPATHY Advanced dementia, worsening of confusion agitation secondary to infection dehy dration ZARA Secondary to severe sepsis, dehydration Hyperkalemia Received calcium gluconate, IV fluids and insulin while in ED. Continue to monitor BMP, hyperkalemia corrected, continue IV fluids, appreciate input from nephrology Chronic systolic heart failure No signs of volume overload Monitor volume status while getting IV fluids Avoid diuretics Coronary artery disease DVT S/P IVC filter Continue Eliquis Hypothyroidism Continue levothyroxine GERD Continue PPI Schizoid personality disorder On Divalproex chronic decubitus wounds Wound Care Consulted Severe protein calorie malnutrition Continue tube feeds Dietitian consulted DVT Px: On Eliquis Code Status Full Code Disposition: Transfer to medical floor Plan to discharge to [facility] when stable Subjective No further episode of bradycardia after discontinuing her beta-kris Remains calm, but gets agitated with Anybody touching or reassessing him Vitals stable Will transfer patient to medical floor Physical Exam Constitutional: + ill appearing Eyes: + anicteric sclerae ENMT: external ear and nose normal, oropharynx normal Neck: trachea midline, no thyromegaly Cardiovascular: Rate/Rhythm: regular rate and regular rhythm Gastrointestinal (Abdomen): PEG tube present,Serous drainage noted, no surrounding erythema Skin: Multiple sacral decubital ulcer on bilateral sacrum bilateral lower extremity present on admission Neurologic: No focal deficit noted, contracted both upper and lower extremity Psychiatric: Speech: + pressured speech Gets agitated easily Results & Data Vital Signs (Past 12 Hours) Vital Signs Temp Pulse Resp BP Pulse Ox 03/16/19 16:15 37.3 C 88 21 168/65 H 97 03/16/19 11:05 38.1 C H 88 26 H 172/69 H 97 03/16/19 08:30 36.9 C 84 18 138/67 96 (1) Sepsis Sepsis type: sepsis due to unspecified organism Qualified Code(s): A41.9 - Sepsis, unspecified organism
[2019-03-16] MEDS: PEPTAMEN 1.5 CAL 1,000 ML BAG PEG SCH (20:44)
[2019-03-17] MEDS: CEFTOLOZANE/TAZOBACTAM 750 MG in DEXTROSE 5% 100 ML IV SCH ×3 (02:21→19:12)
[2019-03-17] MEDS: LEVOTHYROXINE SODIUM 25 MCG TABLET PO SCH (05:58)
[2019-03-17] MEDS: SODIUM CHLORIDE 0.9% 500 ML IV SCH ×2 (06:33→07:08)
[2019-03-17] MEDS: [UNRECOGNIZED DRUG - REMARK] SCH (06:33)
[2019-03-17 07:06] LABS: BUN Creatinine Ratio 37.7 (10-20); Calcium 8.6 mg/dl (8.5-10.1); Creatinine Clr Calc Pharmacy 37.1 ml/min; Est GFR (African American) 44.1; Est GFR (Non-African American) 38.1; Potassium 3.8 mmol/L (3.5-5.1)
[2019-03-17] MEDS: THIAMINE HCL 100 MG TAB PO SCH (07:49)
[2019-03-17] MEDS: FOLIC ACID 1 MG TAB PO SCH (07:49)
[2019-03-17] MEDS: PANTOprazole 40 MG TAB PO SCH (07:51)
[2019-03-17] MEDS: DOCUSATE SODIUM 100 MG CAP PO SCH ×2 (07:51→21:12)
[2019-03-17] MEDS: APIXABAN 5 MG TABLET PO SCH ×2 (07:52→21:11)
[2019-03-17] MEDS: PROSOURCE NO CARB 30 ML/PKT PEG SCH ×2 (07:52→21:12)
[2019-03-17] MEDS: DIVALPROEX SODIUM SPRINKLE 125 MG CAP PO SCH ×2 (07:54→21:11)
[2019-03-17] MEDS: CHECK FENTANYL PATCH PLACEMENT SCH ×2 (08:01→15:53)
--- NOTE | 2019-03-17 12:10 | Infectious Disease Progress Nt ---
Date of Service March 17, 2019 Assessment & Plan (1) Gram negative sepsis: 73-year-old male with gram-negative sepsis with probable osteomyelitis as well as urinary tract infection. Given highly resistant pseudomonal isolate in the past, ceftolozane-tazobactam appropriate pending final identification and sensitivity of gram-negative isolate is in urine and blood. Recommend evaluation by wound care and orthopedic surgery. Will follow. will continue current abx and repeat blood cultures (2) UTI (urinary tract infection): (3) Osteomyelitis: Subjective pt seen in followup, doing well. states he is feeling well. tolerating abx. tmax 39.3. urine culture growing proteus, resistant to quinolones. Currently on zerbaxa and dapto. wbc improved to 6, creat 1.9 ultrasound on 03/15 - b/l hydro L>R. 03/14 blood cultures growing proteus as well. wound culture on 03/09 growing MRSA and pseudomonas. alexandr cp, sob, cough, no n/v/d/abd pain. states he "feels great" Review of Systems Review of Systems: All systems reviewed & are unremarkable except as noted in HPI & below Physical Exam Constitutional: WD/WN, vitals as above Eyes: PERRL, conjunctivae normal, anicteric sclerae ENMT: external ear and nose normal, oropharynx normal Neck: normal visual inspection Respiratory: normal respiratory effort, lungs clear to auscultation Cardiovascular: RRR, no murmur, no edema Gastrointestinal (Abdomen): normal bowel sounds, soft, nontender, no hepatosplenomegaly Musculoskeletal: no cyanosis or clubbing, extremities motor strength 5/5 Skin: no rashes, warm and dry Psychiatric: Orientation: alert and oriented x 3 Results & Data Vital Signs (Past 12 Hours) Vital Signs Temp Pulse Resp BP Pulse Ox 03/17/19 07:22 36.8 C 112 H 22 121/69 97 03/17/19 05:45 39.3 C H Laboratory Results Microbiology 03/14/19 Unknown Urine,Clean Catch Urine Culture - Final Proteus mirabilis PG Care Time/CCT Total # of Minutes Spent Total Time Spent with Patient: Total time spent is greater than 50% in coordination of care (as documented) at patient's floor/unit and/or counseling patient: (1) UTI (urinary tract infection) Hematuria presence: without hematuria Urinary tract infection type: site unspecified Qualified Code(s): N39.0 - Urinary tract infection, site not specified (2) Osteomyelitis Osteomyelitis location: unspecified site Osteomyelitis type: unspecified type Qualified Code(s): M86.9 - Osteomyelitis, unspecified
[2019-03-17] MEDS: D5W AND 1/2NSS 1,000 ML IV SCH (12:46)
[2019-03-17] MEDS: DAPTOmycin 425 MG in SYRINGE 0 ML IV SCH (13:50)
--- NOTE | 2019-03-17 16:48 | Nephrology Progress Note ---
Date of Service March 17, 2019 Assessment & Plan (1) Acute kidney injury: ATN, likely ischemic, in setting of sepsis. He was hypotensive on admission. BP has been better since 03/14. slow improvement from admission 03/14 creatinine of 3.2 to 1.8 today. ongoing risk for plateau, recurrent familia given uti, felix, diarrhea, obligate abtx. cont D51/2 NS. No need for HD and patient not a good HD candidate. (2) Acute hyperkalemia: present at admission; managed medically. no need to cont to restrict diet > removed K restriction (3) Sepsis: He is antibiotics per primary team/inf dzs for pseudomonas (resistant) > urine and wounds. renally dose antibiotics for GFR less than 15ml/min. Avoid hypotension Subjective Seen on rounds this am about 0835; no c/o of pain, sob, N. gets more agitated as interview progresses Review of Systems Review of Systems: All systems reviewed & are unremarkable except as noted in HPI & below and Unobtainable due to cognitive status Physical Exam Constitutional: well developed, + thin and + behavioral limitations on RA, [place] Eyes: EOM intact bilaterally ENMT: Ears: no external ear abnormality Nose: no external nose abnormality Mouth: + dry oral mucous membranes Neck: no nuchal rigidity Respiratory: normal respiratory effort Auscultation: lungs clear to auscultation bilaterally and + diminished lung sounds Cardiovascular: RRR, no murmur, no edema Gastrointestinal (Abdomen): Inspection/Auscultation: + abdomen distended (slight fullness on palpatino) and normal bowel sounds Percussion/Palpation: abdomen nontender rectal tube in place w/ liquid output Musculoskeletal: Extremities: + limited ROM of extremities barely moves LE on his own Skin: no rashes, warm and dry LE wounds not examined; in BL sheepskin boots > states that this provider removed them (did not) and needs to put them back on pt; more agitated if I try to explain/ show him boots still on Neurologic: lai but limited, fluent speech, no tremor Psychiatric: Orientation: alert, oriented to person and + guarded Speech: + loud speech Genitourinary: felix w/ dark yellow urine/ some sediment Results & Data Vital Signs (Past 12 Hours) Vital Signs Temp Pulse Resp BP Pulse Ox 03/17/19 16:03 36.9 C 83 18 138/68 98 03/17/19 11:30 36.4 C L 91 H 16 98/61 L 95 03/17/19 07:22 36.8 C 112 H 22 121/69 97 03/17/19 05:45 39.3 C H Laboratory Results Abnormal lab results 03/17/19 Range/Units 06:02 Chloride 115 H (98-107) mmol/L Carbon Dioxide 18 L (21-32) mmol/L Anion Gap 12.0 H (3-11) BUN 66 H (7-18) mg/dl Creatinine 1.75 H (0.6-1.4) mg/dl BUN/Creatinine Ratio 37.7 H (10-20) Glucose 230 H (70-99) mg/dl (1) Sepsis Sepsis type: sepsis due to unspecified organism Qualified Code(s): A41.9 - Sepsis, unspecified organism
--- NOTE | 2019-03-17 17:52 | Hospitalist Progress Note ---
Date of Service March 17, 2019 Assessment & Plan (1) Sepsis: Severe Sepsis -possible secondary to lower extremity wound,multiple infected pressure wounds present on admission along with complicated UTI, has chronic indwelling Childs catheter Wound Culture: from 03/09/19: Growing Pseudomonas, MRSA Patient is continue on Zosyn/daptomycin antibiotic day #4 Blood/ Urine cultures obtained-growing Proteus ID consulted for Input Wound care consulted MULTIPLE PRESSURE WOUNDS ( PRESENT ON ADMISSION ) Pressure ulcer of right hip, stage 4 Pressure ulcer of left hip, stage 3 Pressure ulcer of right ischium, stage 3 Pressure ulcer of left lateral foot, stage 3 wound culture : proteus with Proteus bacteremia appreciate input from ID cont on current IV abx high risk of osteomyelitis will need 4 weeks of IV abx METABOLIC/UREMIC ENCEPHALOPATHY Advanced dementia, presented worsening of confusion agitation secondary to infection dehydration mental status improved to approx baseline alert , oriented to person only does not likes to be touched or examines ( schizoaffective disorder ) ZARA Secondary to severe sepsis, dehydration Hyperkalemia Received calcium gluconate, IV fluids and insulin while in ED. cr continued to improve hyperkalemia resolved urine culture growing proteus, resistant to quinolones. wbc improved to 6, creat 1.9 ultrasound on 03/15 - b/l hydro L>R. 03/14/19 blood cultures growing proteus wound culture on 03/09/19 growing MRSA and pseudomonas. Continue to monitor BMP, hyperkalemia corrected, continue IV fluids, appreciate input from nephrology Chronic systolic heart failure No signs of volume overload presented with ZARA /dehydration /sepsis due to multiple infected pressure wounds ( present on admission ) getting IVF resusciation Monitor volume status while getting IV fluids Avoid diuretics Coronary artery disease DVT S/P IVC filter Continue Eliquis Hypothyroidism Continue levothyroxine GERD Continue PPI Schizoid personality disorder On Divalproex chronic decubitus wounds infected ( presented on admission ) Pressure ulcer of right hip, stage 4 Pressure ulcer of left hip, stage 3 Pressure ulcer of right ischium, stage 3 Pressure ulcer of left lateral foot, stage 3 Wound Care Consulted-appreriate input wound culture growing Proteus cont broad spectrum Abx Severe protein calorie malnutrition Continue tube feeds Dietitian consulted DVT Px: On Eliquis Code Status Full Code Disposition: resident at [facility] continue hospital stay for sepsis /infected pressure ulcers /complicated UTI /zara /dehydration , requiring IVF , IV abx multidisiplinary care ( wound /ID /nephrology ) Plan to discharge to [facility] when stable Subjective pt is awake had been afebrile , does not like to be touched ( schizoaffective disorder ) states that he " feels great: no complain of SOB , cough ,no fever or chills no chest pain no nausea /vomiting or abdominal pain Physical Exam Constitutional: + ill appearing Eyes: + anicteric sclerae ENMT: external ear and nose normal, oropharynx normal Neck: trachea midline, no thyromegaly Cardiovascular: Rate/Rhythm: regular rate and regular rhythm Gastrointestinal (Abdomen): peg tube present , serous drainage around peg tube site no surrounding erythema or swelling noted Musculoskeletal: Hip: + hip abnormal to inpsection (pressure ulcer on bilateral hip ) all the limbs are contracted Pressure ulcer of right hip, stage 4 Pressure ulcer of left hip, stage 3 Pressure ulcer of right ischium, stage 3 Pressure ulcer of left lateral foot, stage 3 Skin: + wound multiple infected skin wound Pressure ulcer of right hip, stage 4 Pressure ulcer of left hip, stage 3 Pressure ulcer of right ischium, stage 3 Pressure ulcer of left lateral foot, stage 3 Neurologic: contracted limbs , minimum movement -bed bound at baseline gets agitated very easily Psychiatric: Orientation: alert Speech: + pressured speech oriented to person only Schizophrenia gets agitated easily , does not like to be touched /does not allow physical exam screaming " get off " with minimum attampt of change to position Results & Data Vital Signs (Past 12 Hours) Vital Signs Temp Pulse Resp BP Pulse Ox 03/17/19 16:03 36.9 C 83 18 138/68 98 03/17/19 11:30 36.4 C L 91 H 16 98/61 L 95 03/17/19 07:22 36.8 C 112 H 22 121/69 97 (1) Sepsis Sepsis type: sepsis due to unspecified organism Qualified Code(s): A41.9 - Sepsis, unspecified organism
[2019-03-17] MEDS: PEPTAMEN 1.5 CAL 1,000 ML BAG PEG SCH (21:12)
[2019-03-17] MEDS: fentaNYL 25 MCG/HR TDSY TD SCH (21:22)
[2019-03-18] MEDS: CHECK FENTANYL PATCH PLACEMENT SCH ×3 (01:04→15:30)
[2019-03-18] MEDS: D5W AND 1/2NSS 1,000 ML IV SCH (01:04)
[2019-03-18] MEDS: CEFTOLOZANE/TAZOBACTAM 750 MG in DEXTROSE 5% 100 ML IV SCH ×2 (01:05→09:56)
[2019-03-18] MEDS: LEVOTHYROXINE SODIUM 25 MCG TABLET PO SCH (05:32)
[2019-03-18] MEDS: [UNRECOGNIZED DRUG - REMARK] SCH (06:15)
[2019-03-18 07:33] LABS: BUN Creatinine Ratio 42.1 (10-20); Calcium 7.9 mg/dl (8.5-10.1); Creatinine Clr Calc Pharmacy 52.4 ml/min; Est GFR (African American) 66.9; Est GFR (Non-African American) 57.7
[2019-03-18] MEDS: FOLIC ACID 1 MG TAB PO SCH (08:44)
[2019-03-18] MEDS: DIVALPROEX SODIUM SPRINKLE 125 MG CAP PO SCH ×2 (08:44→20:05)
[2019-03-18] MEDS: APIXABAN 5 MG TABLET PO SCH ×2 (08:44→20:05)
[2019-03-18] MEDS: THIAMINE HCL 100 MG TAB PO SCH (08:44)
[2019-03-18] MEDS: PANTOprazole 40 MG TAB PO SCH (08:44)
[2019-03-18] MEDS: PROSOURCE NO CARB 30 ML/PKT PEG SCH ×2 (08:45→20:06)
[2019-03-18] MEDS: DOCUSATE SODIUM 100 MG CAP PO SCH ×2 (10:00→20:05)
[2019-03-18] MEDS ORDERED: POTASSIUM CHLORIDE 40 MEQ in D5W AND 1/2NSS 1,000 ML IV SCH (10:15)
[2019-03-18] MEDS: D5W AND 1/2NSS + 40MEQ KCL 40 MEQ/1,000 ML BAG IV SCH (12:51)
--- NOTE | 2019-03-18 13:08 | Infectious Disease Progress Nt ---
Date of Service March 18, 2019 Assessment & Plan (1) Gram negative sepsis: will continue current abx, due to likely goode of osteo, would continue x 4 weeks. this will treat for proteus bsi (likely gu source) as well. will need weekly cbc, cmp, esr, cpk while on abx. (2) UTI (urinary tract infection): (3) Osteomyelitis: Subjective pt tolerating abx. blood cultures growing proteus, resistant to quinolones, urine culture with same. afebrile. repeat blood cultures from 03/17 pending. creat improved to 1.2 today. Results & Data Vital Signs (Past 12 Hours) Vital Signs Temp Pulse Resp BP Pulse Ox 03/18/19 07:44 37.0 C 86 14 143/72 H 97 Laboratory Results Microbiology 03/14/19 Unknown Urine,Clean Catch Urine Culture - Final Proteus mirabilis PG Care Time/CCT Total # of Minutes Spent Total Time Spent with Patient: Total time spent is greater than 50% in coordination of care (as documented) at patient's floor/unit and/or counseling patient: (1) UTI (urinary tract infection) Hematuria presence: without hematuria Urinary tract infection type: site unspecified Qualified Code(s): N39.0 - Urinary tract infection, site not specified (2) Osteomyelitis Osteomyelitis location: unspecified site Osteomyelitis type: unspecified type Qualified Code(s): M86.9 - Osteomyelitis, unspecified
[2019-03-18] MEDS: DAPTOmycin 425 MG in SYRINGE 0 ML IV SCH (13:55)
--- NOTE | 2019-03-18 16:52 | Nephrology Progress Note ---
Date of Service March 18, 2019 Assessment & Plan (1) Acute kidney injury: ATN, likely ischemic, in setting of sepsis. He was hypotensive on admission. BP has been better since 03/14. slow improvement from admission 03/14 creatinine of 3.2 to 1.2 today. ongoing risk for plateau, recurrent familia given uti, felix, diarrhea, obligate abtx. No need for HD and patient not a good HD candidate. -ATN improving but not resolved; baseline creatinine 0.7-0.8 -added 40 mEq/L K to D51/2 NS; this hypotonic fluid for now appropriate but needs daily bmp and so ordered (2) Sepsis: He is antibiotics per primary team/inf dzs for pseudomonas (resistant) > urine and wounds. renally dose antibiotics for GFR less than 15ml/min. Avoid hypotension (3) Hypokalemia: mild; added IV K to IVF. he had hyperkalemia on presentation. >recheck bmp in am on these ivf Present on Admission?: Yes Subjective seen on rounds this am 1000. no c/o, less anxious today Review of Systems Review of Systems: Unobtainable due to cognitive status Physical Exam Constitutional: well developed, + thin and + behavioral limitations Eyes: EOM intact bilaterally ENMT: Ears: no external ear abnormality Nose: no external nose abnormality Mouth: + dry oral mucous membranes Neck: no nuchal rigidity Respiratory: normal respiratory effort Auscultation: lungs clear to auscultation bilaterally and + diminished lung sounds Cardiovascular: Rate/Rhythm: regular rate and regular rhythm Extremities: + edema (1-2+ pedal edema) Gastrointestinal (Abdomen): Inspection/Auscultation: + abdomen distended (slight fullness on palpatino) and normal bowel sounds Percussion/Palpation: abdomen nontender feeding tube present Musculoskeletal: Extremities: + limited ROM of extremities Skin: no rashes, warm and dry Psychiatric: Orientation: alert, oriented to person and + guarded Speech: + loud speech Results & Data Vital Signs (Past 12 Hours) Vital Signs Temp Pulse Resp BP Pulse Ox 03/18/19 15:07 37.2 C 91 H 16 159/74 H 98 03/18/19 07:44 37.0 C 86 14 143/72 H 97 Laboratory Results Abnormal lab results 03/18/19 Range/Units 06:27 Potassium 3.0 L D (3.5-5.1) mmol/L Chloride 109 H (98-107) mmol/L BUN 52 H (7-18) mg/dl BUN/Creatinine Ratio 42.1 H (10-20) Glucose 128 H (70-99) mg/dl Calcium 7.9 L (8.5-10.1) mg/dl (1) Sepsis Sepsis type: sepsis due to unspecified organism Qualified Code(s): A41.9 - Sepsis, unspecified organism
[2019-03-18] MEDS: CEFTOLOZANE/TAZOBACTAM 1,500 MG in DEXTROSE 5% 100 ML IV SCH (17:33)
--- NOTE | 2019-03-18 19:43 | Hospitalist Progress Note ---
Date of Service March 18, 2019 Assessment & Plan (1) Chronic indwelling Felix catheter: has chronic Felix -urinary retention , hx of Urethral tear had purulent drainage from Felix on admission Urine cleared after IV fluids , IV ABx presents with complicated UTI with Protesus in urine culture cont abx as per ID recommendation (2) Sepsis: Severe Sepsis - secondary to lower extremity wound,/multiple pressure ulcers infected /wound culture + proteus associated with complicated UTI, has chronic indwelling Felix catheter Wound Culture: from 03/09/19: Growing Pseudomonas, MRSA Patient is continue on Zosyn/daptomycin antibiotic Blood/ Urine cultures : proteus , resistant to quinolones repeat blood culture ordered ID consulted for Input -appreciate consult will need 4 weeks of IV abx ( concerned for possible osteo -tunnelled stage 4 b ilateral sacral infected wound ) Wound care consulted METABOLIC/UREMIC ENCEPHALOPATHY Advanced dementia, worsening of confusion agitation secondary to infection dehydration mental status improve to baseline after IV fluids and ABx ZARA Secondary to severe sepsis, dehydration Hyperkalemia Received calcium gluconate, IV fluids and insulin while in ED. 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 ( present on admission ) wound culture + proteus concern for possible osteo Pressure ulcer of right hip, stage 4 Pressure ulcer of left hip, stage 3 Pressure ulcer of right ischium, stage 3 Pressure ulcer of left lateral foot, stage 3 Wound Care Consulted appreciate input per ID ; recommend 4 weeks of IV abx cont local wound care off loading , change of position to allow wound healing Severe protein calorie malnutrition Continue tube feeds Dietitian consulted DVT Px: On Eliquis Code Status Full Code Disposition: need continued hospital stay for sepsis , acute renal failure , infected multiple pressure wound, complicated UTI -requiring IV abx will need PICC line prior to discharge for senior living ABx at [facility] Plan to discharge to [facility] when stable Subjective awake wathcing TV has been afebrile vitals been stable pt does not want to participate on conversation , gets very irritated when touched or examined ( baseline schizoaffective disorder ) pt is continued with broad spectrum ABx felix draining clear urine wound culture /. blood cultures growing proteus, resistant to quinolones, urine culture with same. afebrile. repeat blood cultures from 03/17 pending. creat improved to 1.2 today. Physical Exam Constitutional: + ill appearing Eyes: + anicteric sclerae ENMT: external ear and nose normal, oropharynx normal Neck: trachea midline, no thyromegaly Cardiovascular: Rate/Rhythm: regular rate and regular rhythm Gastrointestinal (Abdomen): PEG tube : serous drainage , no surrounding erythema or swelling tolerating TF well Musculoskeletal: Pressure ulcer of right hip, stage 4 Pressure ulcer of left hip, stage 3 Pressure ulcer of right ischium, stage 3 Pressure ulcer of left lateral foot, stage 3 Skin: Pressure ulcer of right hip, stage 4 Pressure ulcer of left hip, stage 3 Pressure ulcer of right ischium, stage 3 Pressure ulcer of left lateral foot, stage 3 Psychiatric: Speech: + pressured speech Results & Data Vital Signs (Past 12 Hours) Vital Signs Temp Pulse Resp BP Pulse Ox 03/18/19 15:07 37.2 C 91 H 16 159/74 H 98 03/18/19 07:44 37.0 C 86 14 143/72 H 97 (1) Sepsis Sepsis type: sepsis due to unspecified organism Qualified Code(s): A41.9 - Sepsis, unspecified organism
[2019-03-18] MEDS: PEPTAMEN 1.5 CAL 1,000 ML BAG PEG SCH (20:48)
[2019-03-19] MEDS: D5W AND 1/2NSS + 40MEQ KCL 40 MEQ/1,000 ML BAG IV SCH ×2 (01:29→15:58)
[2019-03-19] MEDS: CHECK FENTANYL PATCH PLACEMENT SCH ×3 (01:30→15:58)
[2019-03-19] MEDS: CEFTOLOZANE/TAZOBACTAM 1,500 MG in DEXTROSE 5% 100 ML IV SCH ×3 (02:01→20:37)
[2019-03-19] MEDS: LEVOTHYROXINE SODIUM 25 MCG TABLET PO SCH (06:14)
[2019-03-19] MEDS: [UNRECOGNIZED DRUG - REMARK] SCH (06:14)
[2019-03-19 08:08] LABS: BUN Creatinine Ratio 43.8 (10-20); Est GFR (Non-African American) 85.4; Potassium 3.7 mmol/L (3.5-5.1)
[2019-03-19 08:19] LABS: Magnesium 1.7 mg/dl (1.8-2.4); Phosphorus 2.7 mg/dl (2.5-4.9)
[2019-03-19] MEDS: DIVALPROEX SODIUM SPRINKLE 125 MG CAP PO SCH ×2 (08:56→20:15)
[2019-03-19] MEDS: APIXABAN 5 MG TABLET PO SCH ×2 (08:57→20:15)
[2019-03-19] MEDS: FOLIC ACID 1 MG TAB PO SCH (08:57)
[2019-03-19] MEDS: PANTOprazole 40 MG TAB PO SCH (08:58)
[2019-03-19] MEDS: THIAMINE HCL 100 MG TAB PO SCH (08:58)
[2019-03-19] MEDS: PROSOURCE NO CARB 30 ML/PKT PEG SCH ×2 (09:34→20:14)
[2019-03-19] MEDS: DOCUSATE SODIUM 100 MG CAP PO SCH ×2 (09:35→20:15)
[2019-03-19] MEDS: DAPTOmycin 425 MG in SYRINGE 0 ML IV SCH (14:49)
--- NOTE | 2019-03-19 17:11 | Hospitalist Progress Note ---
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 ) - wound care -has been on IV antibiotics as inpatient -as of 03/18/19 Infectious disease recommendations, patient will need to be continued 4 weeks of IV antibiotics -IV antibiotic is daptomycin 425 mg daily and Ceftolozane/tazobactam 1500 mg every 8 hours -patient will need behavioral sciences department chair IV access and a nursing center that can provide these antibiotic infusions chronic decubitus wounds ( present on admission ) -wound culture + proteus -concern for possible osteomyelitis : on antibiotics, wound care, repositioning Pressure ulcer of right hip, stage 4 Pressure ulcer of left hip, stage 3 Pressure ulcer of right ischium, stage 3 Pressure ulcer of left lateral foot, stage 3 METABOLIC/UREMIC ENCEPHALOPATHY -has history of dementia with confusion from illness -currently mental status is within baseline and patient is calm Schizoid personality disorder -On Divalproex Acute kidney injury and initial Hyperkalemia -Secondary to severe sepsis, dehydration -hyperkalemia has resolved with initial admission calcium gluconate and IV fluids -currently acute renal function has returned to baseline and hyperkalemia has resolved, nephrology service is adjusting the IV fluids an giving potassium supplements as needed -target serum magnesium of 2, IV magnesium ordered Chronic systolic CHF (congestive heart failure): -History of chronic left ventricular systolic heart failure due to ischemic heart disease. -Currently compensated Hypothyroidism -Continue levothyroxine Severe protein calorie malnutrition -BMI 21.8 -continue tube feeds GERD -Continue PPI History of Thromboembolism -On Eliquis, Has IVC filter as per history Code Status -Full Code Subjective Patient is calm. not in distress. allows physician to examine him. when he is not moved, patient appears comfortable. no shortness of breath. no labored breathing. does not report of headache or lightheadedness Physical Exam Constitutional: comfortable Eyes: PERRL, conjunctivae normal, anicteric sclerae EOM intact bilaterally ENMT: external ear and nose normal, oropharynx normal Neck: trachea midline, no thyromegaly Respiratory: normal respiratory effort, lungs clear to auscultation Cardiovascular: Rate/Rhythm: regular rate and regular rhythm Gastrointestinal (Abdomen): Percussion/Palpation: abdomen soft (has PEG tube) Musculoskeletal: multiple dressings due to skin breakdowns Neurologic: PERRL, EOMI, accommodation nl, no face palsy, no dysarthria Results & Data Vital Signs (Past 12 Hours) Vital Signs Temp Pulse Resp BP Pulse Ox 03/19/19 15:31 37.0 C 81 20 163/71 H 98 03/19/19 07:49 37.0 C 82 24 150/70 H 98 (1) Sepsis Sepsis type: sepsis due to unspecified organism Qualified Code(s): A41.9 - Sepsis, unspecified organism
[2019-03-19] MEDS: POTASSIUM CHLORIDE 20 MEQ in NORMOSOL-R 1,000 ML IV SCH (18:14)
[2019-03-19] MEDS: MAGNESIUM SULFATE / D5W 1 GM/100 ML BAG IV SCH ×3 (18:14→21:58)
[2019-03-19] MEDS: PEPTAMEN 1.5 CAL 1,000 ML BAG PEG SCH (20:40)
[2019-03-20] MEDS: CEFTOLOZANE/TAZOBACTAM 1,500 MG in DEXTROSE 5% 100 ML IV SCH ×3 (02:09→17:25)
[2019-03-20] MEDS: CHECK FENTANYL PATCH PLACEMENT SCH ×3 (02:09→16:00)
[2019-03-20] MEDS: LEVOTHYROXINE SODIUM 25 MCG TABLET PO SCH (05:42)
[2019-03-20] MEDS: [UNRECOGNIZED DRUG - REMARK] SCH (05:42)
--- NOTE | 2019-03-20 08:26 | Nephrology Progress Note ---
Date of Service March 20, 2019 Assessment & Plan (1) Acute kidney injury: ATN, likely ischemic, in setting of sepsis. He was hypotensive on admission. BP has been better since 03/14. slow improvement from admission 03/14 creatinine of 3.2 to 1.2 today. ongoing risk for plateau, recurrent familia given uti, felix, diarrhea, obligate abtx. -ATN improving as of yesterday but not resolved; baseline creatinine 0.7-0.8 >> today back to baseline creatinine 0.8 -stopped normosol -daily bmp; weekly at d/c (2) Sepsis: He is antibiotics per primary team/inf dzs for pseudomonas (resistant) > urine and wounds. renally dose antibiotics for GFR less than 15ml/min. Avoid hypotension (3) Hypokalemia: mild; added IV K to IVF. he had hyperkalemia on presentation. >ordered 20 mEq bid K elixir via peg Subjective seen on rounds this am 0820; more alert, denies pain, sob, N. ros limited Review of Systems Review of Systems: Unobtainable due to mental health condition and Unobtainable due to cognitive status Physical Exam Constitutional: well developed, + thin and + behavioral limitations Eyes: EOM intact bilaterally ENMT: Ears: no external ear abnormality Nose: no external nose abnormality Mouth: + dry oral mucous membranes Neck: no nuchal rigidity Respiratory: normal respiratory effort Auscultation: lungs clear to auscultation bilaterally and + diminished lung sounds Cardiovascular: RRR, no murmur, no edema Rate/Rhythm: regular rate and regular rhythm Extremities: + edema (1-2+ pedal edema) Gastrointestinal (Abdomen): Inspection/Auscultation: + abdomen distended (slight fullness on palpation) and normal bowel sounds Percussion/Palpation: abdomen nontender PEG present Musculoskeletal: Extremities: + limited ROM of extremities Skin: no rashes, warm and dry Neurologic: lai Psychiatric: Orientation: alert, oriented to person and + guarded Speech: + loud speech Results & Data Vital Signs (Past 12 Hours) Vital Signs Temp Pulse Pulse Resp BP Pulse Ox 03/20/19 07:20 36.6 C 85 16 130/62 98 03/19/19 23:56 36.8 C 80 18 145/67 H 97 Laboratory Results Abnormal lab results 03/20/19 Range/Units 08:29 BUN 32 H (7-18) mg/dl BUN/Creatinine Ratio 38.7 H (10-20) Calcium 8.3 L (8.5-10.1) mg/dl (1) Sepsis Sepsis type: sepsis due to unspecified organism Qualified Code(s): A41.9 - Sepsis, unspecified organism
[2019-03-20] MEDS: DIVALPROEX SODIUM SPRINKLE 125 MG CAP PO SCH ×2 (08:28→20:35)
[2019-03-20] MEDS: APIXABAN 5 MG TABLET PO SCH ×2 (08:29→20:35)
[2019-03-20] MEDS: PANTOprazole 40 MG TAB PO SCH (08:30)
[2019-03-20] MEDS: THIAMINE HCL 100 MG TAB PO SCH (08:30)
[2019-03-20] MEDS: PROSOURCE NO CARB 30 ML/PKT PEG SCH ×2 (08:31→20:37)
[2019-03-20] MEDS: FOLIC ACID 1 MG TAB PO SCH (08:31)
[2019-03-20] MEDS: DOCUSATE SODIUM 100 MG CAP PO SCH ×2 (08:36→20:35)
[2019-03-20 09:16] LABS: BUN Creatinine Ratio 38.7 (10-20); Calcium 8.3 mg/dl (8.5-10.1); Creatinine Clr Calc Pharmacy 78.3 ml/min; Est GFR (African American) 101.9; Est GFR (Non-African American) 87.9; Potassium 3.7 mmol/L (3.5-5.1)
[2019-03-20] MEDS: DAPTOmycin 425 MG in SYRINGE 0 ML IV SCH (17:22)
--- NOTE | 2019-03-20 18:14 | Hospitalist Progress Note ---
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 ) - wound care -has been on IV antibiotics as inpatient -as of 03/18/19 Infectious disease recommendations, patient will need to be continued 4 weeks of IV antibiotics -IV antibiotic is daptomycin 425 mg daily and Ceftolozane/tazobactam 1500 mg every 8 hours -PICC line placed on 03/20/19 -patient will need [facility] IV access and a nursing center that can provide these antibiotic infusions chronic decubitus wounds ( present on admission ) -wound culture + proteus -concern for possible osteomyelitis : on antibiotics, wound care, repositioning Pressure ulcer of right hip, stage 4 Pressure ulcer of left hip, stage 3 Pressure ulcer of right ischium, stage 3 Pressure ulcer of left lateral foot, stage 3 METABOLIC/UREMIC ENCEPHALOPATHY -has history of dementia with confusion from illness -currently mental status is within baseline and patient is calm Schizoid personality disorder -On Divalproex Acute kidney injury and initial Hyperkalemia -Secondary to severe sepsis, dehydration -hyperkalemia has resolved with initial admission calcium gluconate and IV fluids -currently acute renal function has returned to baseline and hyperkalemia has resolved, nephrology service is adjusting the IV fluids an giving potassium supplements as needed -target serum magnesium of 2, IV magnesium ordered Chronic systolic CHF (congestive heart failure): -History of chronic left ventricular systolic heart failure due to ischemic heart disease. -Currently compensated Hypothyroidism -Continue levothyroxine Severe protein calorie malnutrition -BMI 21.8 -continue tube feeds GERD -Continue PPI History of Thromboembolism -On Eliquis, Has IVC filter as per history Code Status -Full Code Brother Dk is power of attorney lawyer [phone], Subjective PICC line placed on 03/20/19. no chest pain. no palpitations. no shortness of breath, breathing on room air. patient laying on bed and appears comfortable. no acute distress Physical Exam Constitutional: comfortable Eyes: PERRL, conjunctivae normal, anicteric sclerae EOM intact bilaterally ENMT: external ear and nose normal, oropharynx normal Neck: trachea midline, no thyromegaly Respiratory: normal respiratory effort, lungs clear to auscultation Cardiovascular: Rate/Rhythm: regular rate and regular rhythm Gastrointestinal (Abdomen): Percussion/Palpation: abdomen soft (has PEG tube) Musculoskeletal: multiple areas of optifilm of lower extremities and lower body to protect from further ulcerations Neurologic: PERRL, EOMI, accommodation nl, no face palsy, no dysarthria Genitourinary: + penis abnormality (felix) Results & Data Vital Signs (Past 12 Hours) Vital Signs Temp Pulse Pulse Resp BP BP Pulse Ox 03/20/19 17:03 37.1 C 90 16 127/71 98 03/20/19 07:20 36.6 C 85 16 130/62 98 (1) Sepsis Sepsis type: sepsis due to unspecified organism Qualified Code(s): A41.9 - Sepsis, unspecified organism
[2019-03-20] MEDS: POTASSIUM CHLORIDE 20 MEQ/15 ML UDC PEG SCH (20:36)
[2019-03-20] MEDS: PEPTAMEN 1.5 CAL 1,000 ML BAG PEG SCH (20:37)
[2019-03-20] MEDS ORDERED: POTASSIUM CHLORIDE 20 MEQ/15 ML UDC PEG SCH (21:00)
[2019-03-20] MEDS: fentaNYL 25 MCG/HR TDSY TD SCH (22:04)
[2019-03-21] MEDS: CEFTOLOZANE/TAZOBACTAM 1,500 MG in DEXTROSE 5% 100 ML IV SCH ×2 (01:52→11:11)
[2019-03-21] MEDS: CHECK FENTANYL PATCH PLACEMENT SCH ×3 (01:53→15:45)
[2019-03-21] MEDS: LEVOTHYROXINE SODIUM 25 MCG TABLET PO SCH (06:02)
[2019-03-21] MEDS: [UNRECOGNIZED DRUG - REMARK] SCH (06:02)
[2019-03-21] MEDS: THIAMINE HCL 100 MG TAB PO SCH (09:41)
[2019-03-21] MEDS: DIVALPROEX SODIUM SPRINKLE 125 MG CAP PO SCH (09:41)
[2019-03-21] MEDS: POTASSIUM CHLORIDE 20 MEQ/15 ML UDC PEG SCH (09:41)
[2019-03-21] MEDS: FOLIC ACID 1 MG TAB PO SCH (09:41)
[2019-03-21] MEDS: PROSOURCE NO CARB 30 ML/PKT PEG SCH (09:42)
[2019-03-21] MEDS: APIXABAN 5 MG TABLET PO SCH (09:42)
[2019-03-21] MEDS: PANTOprazole 40 MG TAB PO SCH (09:42)
[2019-03-21] MEDS: DOCUSATE SODIUM 100 MG CAP PO SCH (11:11)
[2019-03-21] MEDS: DAPTOmycin 425 MG in SYRINGE 0 ML IV SCH (14:22)
[2019-03-21] MEDS: POTASSIUM CHLORIDE 20 MEQ in NORMOSOL-R 1,000 ML IV SCH (15:08)
--- NOTE | 2019-03-21 15:19 | Hospitalist Progress Note ---
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 ) - wound care -has been on IV antibiotics as inpatient and currently on daptomycin 425 mg daily and Ceftolozane/tazobactam 1500 mg every 8 hours -there were some financial concerns for the cost of IV antibiotics as outpatient but as per case management, patient's [facility] facility will handle the cost -Discharge to [facility] with PICC line to continue IV antibiotics as of 03/18/19 Infectious disease recommendations, patient will need to be continued 4 weeks of IV antibiotics IV antibiotic is daptomycin 425 mg daily and Ceftolozane/tazobactam 1500 mg every 8 hours PICC line placed on 03/20/19 will need weekly cbc, cmp, esr, cpk while on antibiotics Patient will need follow up by primary care doctor in 1 week chronic decubitus wounds ( present on admission ) -wound culture + proteus -concern for possible osteomyelitis : on antibiotics, wound care, repositioning Pressure ulcer of right hip, stage 4 Pressure ulcer of left hip, stage 3 Pressure ulcer of right ischium, stage 3 Pressure ulcer of left lateral foot, stage 3 acute metabolic encephalopathy (resolved) -has history of dementia with confusion from illness -currently mental status is within baseline and patient is calm Schizoid personality disorder -On Divalproex Acute kidney injury and initial Hyperkalemia (resolved) -Secondary to severe sepsis, dehydration -hyperkalemia has resolved with initial admission calcium gluconate and IV fluids -currently acute renal function has returned to baseline and hyperkalemia has resolved and serum magnesium is at goal Chronic systolic CHF (congestive heart failure): -History of chronic left ventricular systolic heart failure due to ischemic heart disease. -Currently compensated Hypothyroidism -Continue levothyroxine Severe protein calorie malnutrition -BMI 21.8 -continue tube feeds GERD -Continue PPI History of Thromboembolism (on Apixaban therapy) -On Eliquis, Has IVC filter as per history Code Status -Full Code Brother Dk is power of title attorney [phone], Discharge Diagnosis Sepsis secondary to urinary tract infection with chronic felix and bacteremia and possible osteomyelitis, chronic decubitus wounds (present on admission), acute metabolic encephalopathy (resolved), Acute kidney injury and initial H yperkalemia (resolved), Severe protein calorie malnutrition, History of Thromboembolism (on Apixaban therapy) Subjective -has been on IV antibiotics as inpatient and currently on daptomycin 425 mg daily and Ceftolozane/tazobactam 1500 mg every 8 hours -there were some financial concerns for the cost of IV antibiotics as outpatient but as per case management, patient's [facility] facility will handle the cost -Discharge to [facility] with PICC line to continue IV antibiotics as of 03/18/19 Infectious disease recommendations, patient will need to be continued 4 weeks of IV antibiotics IV antibiotic is daptomycin 425 mg daily and Ceftolozane/tazobactam 1500 mg every 8 hours PICC line placed on 03/20/19 will need weekly cbc, cmp, esr, cpk while on antibiotics Patient will need follow up by primary care doctor in 1 week patient denies acute pain. baseline mental status. cooperative. he expresses understanding that he will be discharge. no complains of chest pain or abdomen pain. no headach. no dizziness. no shortness of breath Physical Exam Constitutional: comfortable Eyes: PERRL, conjunctivae normal, anicteric sclerae EOM intact bilaterally ENMT: external ear and nose normal, oropharynx normal Neck: trachea midline, no thyromegaly Respiratory: normal respiratory effort, lungs clear to auscultation Cardiovascular: Rate/Rhythm: regular rate and regular rhythm Gastrointestinal (Abdomen): Percussion/Palpation: abdomen soft (has PEG tube) Musculoskeletal: Extremities: + lower extremity abnormal to inspection (chronic ulcerations of lower body and lower extremities) Neurologic: PERRL, EOMI, accommodation nl, no face palsy, no dysarthria Genitourinary: + penis abnormality (felix) Results & Data Vital Signs (Past 12 Hours) Vital Signs Temp Pulse Pulse Resp BP BP Pulse Ox 03/21/19 15:02 37.1 C 79 18 121/70 98 03/21/19 07:30 36.9 C 85 18 123/72 98 (1) Sepsis Sepsis type: sepsis due to unspecified organism Qualified Code(s): A41.9 - Sepsis, unspecified organism
--- NOTE | 2019-03-21 15:26 | Discharge Summary ---
Date of Service March 21, 2019 Admission HPI Per Admitting Provider Patient is a 73-year-old male with history of hypertension, chronic systolic heart failure, coronary artery disease, severe malnutrition, DVT S/P IVC filter, osteomyelitis, hypothyroidism, GERD, schizoid personality disorder, dyslipidemia, recurrent MDR UTIs, chronic anemia, chronic decubitus wounds and other problems presents from [facility] for placement of PICC line in [facility] for IV antibiotics. Patient's wound culture grew Pseudomonas and MRSA from 03/09/19. Patient was found to be agitated and confused and so was sent from [facility] to ED for further evaluation. History is limited secondary to the patient's me ntal status. Most of the history is obtained from ER staff, old records. Patient is agitated and refuses examination. He was noted to be hypotensive on presentation, blood pressure slightly improved with IV fluids. White blood cell count elevated at 16.3 7K, also found to be hyponatremia--131, hyperkalemia 6.2, ZARA with creatinine levels elevated to 3.23 and BUN 102. Procalcitonin elevated at 3.23, lactate normal at 1.12. UA suggestive of UTI. Chest x-ray showed increased bibasilar infiltrates possible atelectasis, also less likely aspiration. Lower extremity CT showed no acute bony abnormality. Extensive destructive change noted on the right proximal femur and right acetabulum with overlying wound. Acute versus chronic infection/osteomyelitis could not be excluded. The bladder wall is thickened, with pericystic inflammation suggestive of cystitis. Rectosigmoid fecal impaction also noted. Admission Exam Per Admitting Provider Physical Exam: Physical examination is limited secondary to patient being uncooperative and agitated currently Physical Exam: Vitals signs as noted above General Appearance: Chronically ill-appearing, disheveled, thin, frail, " repeats words" Head: normocephalic, Atraumatic Eyes: normal inspection, EOMI Neck: supple, Trachea midline Respiratory/Chest: Normal breath sounds, CTA Cardiovascular: S1, S2, + systolic murmur Abdomen/GI:Soft, Non tender, Bowel sounds present, +PEG tube Extremities/Musculoskelatal:normal inspection, multiple wounds on extremities, Contracture, legs in boots Neurologic/Psych:grossly moves all extremities, complete neurological exam could not be performed Skin: normal color, warm, sacral wounds, Principal Diagnosis Sepsis secondary to urinary tract infection with chronic felix and bacteremia and possible osteomyelitis, chronic decubitus wounds (present on admission), acute metabolic encephalopathy (resolved), Acute kidney injury and initial Hyperkalemia (resolved), Severe protein calorie malnutrition, History of Thromboembolism (on Apixaban therapy) Discharge Exam Constitutional comfortable Eyes PERRL, conjunctivae normal, anicteric sclerae EOM intact bilaterally ENMT external ear and nose normal, oropharynx normal Neck trachea midline, no thyromegaly Respiratory normal respiratory effort, lungs clear to auscultation Cardiovascular Rate/Rhythm: regular rate and regular rhythm Gastrointestinal (Abdomen) Percussion/Palpation: abdomen soft (has PEG tube) Musculoskeletal Extremities: + lower extremity abnormal to inspection (chronic ulcerations of lower body and lower extremities) Neurologic PERRL, EOMI, accommodation nl, no face palsy, no dysarthria Genitourinary + penis abnormality (felix) Discharge Data Allergies Allergy/AdvReac Type Severity Reaction Status Date / Time iodine Allergy Unknown Unknown Verified 03/14/19 09:45 onion AdvReac Intermediate vomitting Verified 03/14/19 09:45 Consultations 03/14/19 17:57 ED Decision to Admit Stat 03/14/19 22:21 Consult Case Management - Discharge Planning Routine Consult Nephrology Routine 03/15/19 08:00 Consult Infectious Diseases Routine Ordered Studies 03/14/19 17:41 CT tib/fib LT wo con Stat CT tib/fib RT wo con Stat 03/15/19 22:21 US renal/blad retro comp Routine Hospital Course (1) Chronic indwelling Felix catheter: -continue felix (2) Sepsis: Sepsis secondary to urinary tract infection with chronic felix and bacteremia and possible osteomyelitis -has chronic Felix and being treated with antibiotics for complicated UTI with Proteus in urine culture -blood cultures also grew proteus, resistant to quinolones and likely the bacteremia is from urinary source -wound culture with MRSA -possible osteomyelitis given tunnelled stage 4 bilateral sacral infected wound ) - wound care -has been on IV antibiotics as inpatient and currently on daptomycin 425 mg daily and Ceftolozane/tazobactam 1500 mg every 8 hours -there were some financial concerns for the cost of IV antibiotics as outpatient but as per case management, patient's [facility] facility will handle the cost -Discharge to [facility] with PICC line to continue IV a ntibiotics as of 03/18/19 Infectious disease recommendations, patient will need to be continued 4 weeks of IV antibiotics IV antibiotic is daptomycin 425 mg daily and Ceftolozane/tazobactam 1500 mg jaclyn ry 8 hours PICC line placed on 03/20/19 will need weekly cbc, cmp, esr, cpk while on antibiotics Patient will need follow up by primary care doctor in 1 week chronic decubitus wounds ( present on admission ) -wound culture + proteus -concern for possible osteomyelitis : on antibiotics, wound care, repositioning Pressure ulcer of right hip, stage 4 Pressure ulcer of left hip, stage 3 Pressure ulcer of right ischium, stage 3 Pressure ulcer of left lateral foot, stage 3 acute metabolic encephalopathy (resolved) -has history of dementia with confusion from illness -currently mental status is within baseline and patient is calm Schizoid personality disorder -On Divalproex Acute kidney injury and initial Hyperkalemia (resolved) -Secondary to severe sepsis, dehydration -hyperkalemia has resolved with initial admission calcium gluconate and IV fluids -currently acute renal function has returned to baseline and hyperkalemia has resolved and serum magnesium is at goal Chronic systolic CHF (congestive heart failure): -History of chronic left ventricular systolic heart failure due to ischemic heart disease. -Currently compensated Hypothyroidism -Continue levothyroxine Severe protein calorie malnutrition -BMI 21.8 -continue tube feeds GERD -Continue PPI History of Thromboembolism (on Apixaban therapy) -On Eliquis, Has IVC filter as per history Code Status -Full Code Brother Dk is power of [employer]gu[employer] regenerator operator [phone], Discharge Diagnosis Sepsis secondary to urinary tract infection with chronic felix and bacteremia and possible osteomyelitis, chronic decubitus wounds (present on admission), acute metabolic encephalopathy (resolved), Acute kidney injury and initial Hyperkalemia (resolved), Severe protein calorie malnutrition, History of Thromb oembolism (on Apixaban therapy) Total Time Total Time Spent Total Time Spent (In Minutes): 40 minutes Total Time Includes: Examination of the Patient, Discharge Planning, Medication Reconciliation and Communication With Other Providers Discharge Plan Discharge Items Patient Disposition: Transfer Snf Fac Reason For Visit: METABOLIC ENCEPHALOPATHY Discharge Diagnosis: Sepsis secondary to urinary tract infection with chronic felix and bacteremia and possible osteomyelitis, chronic decubitus wounds (present on admission), acute metabolic encephalopathy (resolved), Acute kidney injury and initial Hyperkalemia (resolved), Severe protein calorie malnutrition, History of Thromboembolism (on Apixaban therapy) Condition: Good Discharge Goals: Improve disease control Activity: Resume your previous activity Non-emergency contact: Primary Care Provider Call non-emergency contact if: you have any medication questions Follow-up/Referrals: Sameera Villa [Primary Care Provider] - Diet: Regular Diet Texture: Pureed (blended smooth) Addtl Provider Instructions: Discharge to [facility] with PICC line to continue IV antibiotics as of 03/18/19 Infectious disease recommendations, patient will need to be continued 4 weeks of IV antibiotics IV antibiotic is daptomycin 425 mg daily and Ceftolozane/tazobactam 1500 mg every 8 hours PICC line placed on 03/20/19 will need weekly cbc, cmp, esr, cpk while on antibiotics Patient will need follow up by primary care doctor in 1 week Prescriptions: Continued melatonin 3 mg Tablet 3 mg PO HS RF: 0 levothyroxine [Synthroid] 25 mcg tablet 25 mcg PO DAILY RF: 0 folic acid 1 mg Tablet 1 mg PO DAILY RF: 0 metoprolol succinate [Toprol XL] 25 mg tablet extended release 24 hr 25 mg PO DAILY RF: 0 fentanyl [Duragesic] 25 mcg/hr patch 72 hour 1 patch topical [id number] RF: 0 docusate sodium 50 mg/5 mL Liquid 100 mg PO BID RF: 0 acetaminophen [Tylenol] 325 mg Tablet 650 mg PO Q4 PRN (Reason: Fever Or Pain) RF: 0 thiamine HCl (vitamin B1) 100 mg Tablet 100 mg PO DAILY RF: 0 tramadol [Ultram] 50 mg tablet 50 mg PO Q6 PRN (Reason: PAIN 4-10) RF: 0 baclofen 10 mg Tablet 5 mg PO TID RF: 0 bisacodyl [Dulcolax (bisacodyl)] 10 mg Suppository 10 mg NV UD PRN (Reason: 3RD DAY WITH NO BM) RF: 0 ferrous sulfate 325 mg (65 mg iron) Tablet 325 mg PO BID RF: 0 divalproex 125 mg capsule, delayed rel sprinkle 500 mg PO BID RF: 0 oxycodone [Roxicodone] 5 mg tablet 5 mg PO Q6H RF: 0 Protonix [address] for susp in packet 40 mg PO DAILY RF: 0 Eliquis 5 mg tablet 5 mg PO BID RF: 0 Probiotic 3 billion cell Capsule PO BID RF: 0 Milk of Magnesia 30 ml PO UD PRN (Reason: Constipation) RF: 0 Nutritional Frozen Dessert 1 dose PO TIDM RF: 0 Protein Nutritional Shake Liquid 60 ea PO BID RF: 0 B [id number] Tablet 1 tab PO DAILY RF: 0 Perative 0.067-1.30 gram-kcal/mL Liquid feeding tube UD RF: 0 Stand-Alone Forms: [facility] Admission Data Admit Date/Time: 03/14/19 19:55 Attending Provider: Kyle Smith Admit Provider: Hema Padron Primary Care Provider: Sameera Villa Other Providers: Hema Padron ; Pato Freed ; Charles Ramirez Service: Medical
== END 2019-03-21 16:48 | DRG 871 ==
LOC: ED 14:43 → SUATTDRO 19:55 → 2S 19:55 → 2W 03-16 19:21 → 3N 03-17 10:32

== ENCOUNTER 2019-07-31 01:55 | Inpatient (IN) ==
[2019-07-31 02:50] LABS: Basophils # (auto) 0.01 K/uL (0-0.2); Basophils % (auto) 0.1 %; Eosinophils # (auto) 0.02 K/uL (0-0.5); Eosinophils % (auto) 0.2 %; Hematocrit (blood only) 27.8 % (42-52); Hemoglobin 9.2 g/dL (14.0-18.0); Immature Granulocytes # (auto) 0.04 K/uL (0.00-0.02); Immature Granulocytes % (auto) 0.3 %; Lymphocytes # (auto) 0.95 K/uL (1.2-3.4); Lymphocytes % (auto) 7.7 %; Mean Corpuscular Hgb Conc 33.1 g/dL (32-36); Mean Corpuscular Volume 87.7 fL (80-100); Mean Platelet Volume 9.8 fL (7.4-10.4); Monocytes # (auto) 0.63 K/uL (0.11-0.59); Monocytes % (auto) 5.1 %; Neutrophils # (auto) 10.74 K/uL (1.4-6.5); Neutrophils % (auto) 86.6 %; Platelet Count 386 K/uL (130-400); RDW Coefficient of Variation 16.1 % (11.5-14.5); RDW Standard Deviation 52.1 fL (36.4-46.3); Red Blood Count 3.17 M/uL (4.7-6.1); White Blood Count 12.39 K/uL (4.8-10.8)
[2019-07-31 03:06] LABS: INR 1.2 (0.9-1.1); Partial Thromboplastin Ratio 1.3; Prothrombin Time 11.7 Seconds (9.0-12.0)
[2019-07-31 03:11] LABS: Albumin Level 2.2 gm/dl (3.4-5.0); BUN Creatinine Ratio 29.6 (10-20); Calcium 8.1 mg/dl (8.5-10.1); Creatinine Clr Calc Pharmacy 14.6 ml/min; Est GFR (African American) 14.2; Est GFR (Non-African American) 12.2; Potassium 5.6 mmol/L (3.5-5.1)
[2019-07-31 03:14] LABS: Albumin Globulin Ratio 0.4 (0.9-2); Bilirubin,Total 0.2 mg/dl (0.2-1); Globulin 5.7 gm/dl (2.5-4.0); Total Protein 7.9 gm/dl (6.4-8.2)
[2019-07-31] MEDS ORDERED: SODIUM CHLORIDE 0.9% 1000ML 1,000 ML IV ONE (03:21)
[2019-07-31 03:23] LABS: Appearance Urine Turbid (Clear); Bacteria Urine Automated 1+ (Negative); Bilirubin Urine Negative (Negative); Blood Urine Negative (Negative); Color Urine Dark Yellow; Epithelial Cell Urine Auto >30 /lpf (0-5); Glucose Urine UA 1+ (Negative); Ketones Urine Negative (Negative); Leukocyte Esterase Urine 1+ (Negative); Nitrite Urine Positive (Negative); Specific Gravity Urine 1.019 (1.000-1.030); Urobilinogen Urine Negative (Negative); pH Urine >= 9.0 (4.5-7.5)
[2019-07-31 03:39] LABS: Protein Urine 2+ (Negative); Sulfosalicylic Acid Urine Positive (Negative)
[2019-07-31 03:43] LABS: RBC Urine Automated 0-4 /hpf (0-4); Triple Phosphate Crystal Urine Present (None Prsent)
[2019-07-31] MEDS ORDERED: IMIPENEM/CILASTATIN SODIUM 500 MG in DEXTROSE 5% 100 ML IV STA (03:43)
[2019-07-31] MEDS ORDERED: DAPTOmycin 500 MG in SYRINGE 0 ML IV STA (03:43)
[2019-07-31 04:01] LABS: Cast Urine Automated 0 /lpf (0-5)
[2019-07-31] MEDS ORDERED: SODIUM POLYSTYRENE SULFONATE 15G/60ML SUSP PO STA (05:42)
[2019-07-31] MEDS ORDERED: bisacodyL 10 MG SUPP PR PRN (05:42)
[2019-07-31] MEDS ORDERED: POLYETHYLENE (MIRALAX) 17 GM PACK PO PRN (05:42)
[2019-07-31] MEDS ORDERED: NITROGLYCERIN SL 0.4 MG/TAB TAB SL PRN (05:42)
[2019-07-31] MEDS ORDERED: PIPERACILL/TAZOBAC CONSULT ACTIVE PRN (05:42)
[2019-07-31] MEDS ORDERED: SODIUM CHLORIDE 0.9% 1000ML 1,000 ML IV SCH (05:42)
[2019-07-31] MEDS ORDERED: MAGNESIUM HYDROXIDE SUSP 30 ML UDC PEG PRN (05:42)
[2019-07-31] MEDS ORDERED: TRAMADOL HCL 50 MG TABLET PO PRN (05:42)
[2019-07-31] MEDS ORDERED: ONDANSETRON INJ 2 MG/ML 2 ML VIAL IV PRN (05:42)
[2019-07-31] MEDS ORDERED: ACETAMINOPHEN 325 MG TAB PO PRN (05:42)
[2019-07-31] MEDS ORDERED: [UNRECOGNIZED DRUG - OTHER] feeding tube SCH (05:42)
[2019-07-31] MEDS ORDERED: DAPTOMYCIN CONSULT ACTIVE PRN (05:53)
[2019-07-31] MEDS ORDERED: OXYCODONE HCL IR 5 MG TAB (IMMEDIATE RELEASE) PO SCH (06:15)
--- NOTE | 2019-07-31 06:28 | XRay Report ---
KUB HISTORY: Status post placement of gastrostomy tube Check tube placement COMPARISON: CT abdomen and pelvis 07/31/2019 FINDINGS: IVC filter noted at L2-L3. Gastrostomy tube projects over the epigastric abdomen. No defini te pneumatosis or pneumoperitoneum. Extensive fecal retention. No renal calculi. No ureteral calculi . No pneumoperitoneum or pneumatosis. Degenerative changes of the spine, pelvis and hips. Mild right hemidiaphragmatic elevation. No fracture. IMPRESSION: 1. Gastrostomy tube projects over the epigastric abdomen. 2. No definite pneumatosis or pneumoperitoneum. 3. Extensive fecal retention redemonstrated. ACT 112: Negative or not required by law. The above report was generated using voice recognition software. It may contain grammatical, syntax o r spelling errors. Electronically signed by: Félix Houston M.D. 07/31/2019 6:27 AM
[2019-07-31] MEDS ORDERED: LEVOTHYROXINE SODIUM 25 MCG TABLET PO SCH (06:30)
--- NOTE | 2019-07-31 06:30 | XRay Report ---
XR chest 1V portable HISTORY: 74 years-old Male Sepsis acutely altered mental status with sepsis COMPARISON: CT abdomen and pelvis of same day, chest radiograph 03/14/2019 TECHNIQUE: Supine AP view of the chest FINDINGS: Cardiac silhouette is enlarged, unchanged. Calcified plaque of the thoracic aortic arch. Mild right h emidiaphragmatic elevation. There is no pneumothorax, pleural effusion or overt pulmonary edema. Mini mal bibasilar opacities suggest atelectasis. Degenerative changes of the shoulders and spine. IMPRESSION: No acute process. ACT 112: Negative or not required by law. The above report was generated using voice recognition software. It may contain grammatical, syntax o r spelling errors. Electronically signed by: Félix Houston M.D. 07/31/2019 6:28 AM
--- NOTE | 2019-07-31 06:32 | Emergency Department Note ---
Entered by Alba Marvin acting as a scribe for Savannah Lopez DO History of Present Illness General Chief complaint: Altered Mental Status Stated complaint: Altered mental status Time Seen by Provider: 07/31/19 02:00 Source: patient and EMS History of Present Illness Provider complaint: possible sepsis Onset (ago): day(s) 1 Location: genitals Pain Consistency: + constant Quality: + other (wound infection ) The patient is a 74 y/o male who presents to the emergency department via EMS from [facility] for evaluation of constant suspected sepsis from wounds on his groin that began earlier today. EMS states that the patient has a history of dementia but staff at [facility] felt he was harder to arouse than normal. Staff also reported he was hypothermic at 94 degrees. EMS reported that the patient was 87% on room air at [facility] but was better for them on the way to the ED. HPI and ROS is limited secondary to patients dementia. Home Medications Home Medications Medication Instructions Recorded Confirmed Type B [id number] 1 tab FEEDING TUBE DAILY 03/14/19 07/31/19 History Eliquis 5 mg PO BID 03/14/19 07/31/19 History acetaminophen [Tylenol] 650 mg PO Q4 PRN MDD 3gm/24hr 03/14/19 07/31/19 History baclofen 5 mg PO TID 03/14/19 07/31/19 History bisacodyl [Dulcolax (bisacodyl)] 10 mg FL UD PRN 03/14/19 07/31/19 History divalproex 500 mg PO BID 03/14/19 07/31/19 History docusate sodium 100 mg PO BID 03/14/19 07/31/19 History fentanyl [Duragesic] 1 patch TOPICAL [id number] 03/14/19 07/31/19 History folic acid 1 mg PO DAILY 03/14/19 07/31/19 History levothyroxine [Synthroid] 25 mcg PO DAILY 03/14/19 07/31/19 History melatonin 3 mg PO HS 03/14/19 07/31/19 History metoprolol succinate [Toprol XL] 25 mg PO UD 03/14/19 07/31/19 History oxycodone [Roxicodone] 5 mg PO Q6H 03/14/19 07/31/19 History thiamine HCl (vitamin B1) 100 mg PO DAILY 03/14/19 07/31/19 History tramadol [Ultram] 50 mg PO Q6 PRN 03/14/19 07/31/19 History cephalexin [Keflex] 500 mg FEEDING TUBE QID 07/29/19 07/31/19 History magnesium hydroxide [Milk of 30 ml FEEDING TUBE DAILY PRN 07/29/19 07/31/19 History Magnesia] risperidone [Risperdal] 0.5 mg FEEDING TUBE BID 07/29/19 07/31/19 History Saccharomyces boulardii 250 mg PO BID 07/31/19 07/31/19 History acetaminophen 650 mg PO Q6H PRN MDD 3gm/24hr 07/31/19 07/31/19 History esomeprazole magnesium [Nexium 40 mg PO DAILY 07/31/19 07/31/19 History Packet] ferrous sulfate 325 mg FEEDING TUBE BID 07/31/19 07/31/19 History multivit,stress formula-zinc 1 tab PO DAILY 07/31/19 07/31/19 History [Stress Formula with Zinc] nut.tx. metabolic disorder,soy 1 ea FEEDING TUBE UD 07/31/19 07/31/19 History [Perative] protein supplement 1 ea PO BID 07/31/19 07/31/19 History Allergies Allergy/AdvReac Type Severity Reaction Status Date / Time iodine Allergy Unknown Unknown Verified 07/31/19 03:49 onion AdvReac Intermediate vomitting Verified 07/31/19 03:49 Past Med/Surg History Medical History Anemia (Chronic) Anxiety (Chronic) Bacteremia Chronic pain (Chronic) Chronic systolic CHF (congestive heart failure) (Chronic) Coronary artery disease (Chronic) s/p OK 2007 Decubitus ulcer (Chronic) multiple, chronic Depression Dyslipidemia (Chronic) Esophagitis Childs catheter in place GERD (gastroesophageal reflux disease) (Chronic) History of Clostridium difficile colitis (Chronic) History of DVT (deep vein thrombosis) (Chronic) LLE 2017 History of electroconvulsive therapy (Chronic) History of ESBL E. 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 Childs cath. Wound infection (Acute) Pseudomonas PEG site October 2018 Surgical History History of appendectomy (Chronic) S/P PICC central line placement Status post insertion of percutaneous endoscopic gastrostomy (PEG) tube (Chronic) Sep 2018 Family History Other Family history non-contributory Social History Preferred Language: Latvian Communication Ability: Impaired Junior Architect Required: No Beliefs That Will Affect Care: None marital status: Unknown Current Living Situation: Group Home Current Living Situation Comment: [place] Feels Safe at Home: Declines to Answer Smoking Status: Unknown if ever smoked Hx Alcohol Use: No Hx Substance Use: No Review of Systems HPI and ROS is limited secondary to patients dementia. Physical Exam Vital Signs Vital Signs - 24 hr 07/31/19 02:01 07/31/19 02:25 07/31/19 02:47 Temperature 36.1 C L 36.1 C L Temperature Source Axillary Rectal Pulse Rate 91 H 99 H Pulse Rate [Right Finger] 95 H Pulse Rhythm Regular Pulse Strength Normal Respiratory Rate 18 18 Respiratory Depth Normal Normal Blood Pressure 114/84 Blood Pressure [Right Arm] 124/72 Blood Pressure Mean 94 Blood Pressure Mean [Right Arm] 89 Blood Pressure Position [Right Arm] Lying Pulse Oximetry 97 99 99 Oxygen Delivery Method Room Air Room Air Room Air Sepsis Recent Fever Within 48 Hours No Sepsis New/Unexplained Change in Mental Status No Sepsis Action Taken by Nursing No Action Required 07/31/19 03:50 Temperature Temperature Source Pulse Rate Pulse Rate [Right Finger] 75 Pulse Rhythm Pulse Strength Respiratory Rate 18 Respiratory Depth Normal Blood Pressure Blood Pressure [Right Arm] 113/61 Blood Pressure Mean Blood Pressure Mean [Right Arm] 78 Blood Pressure Position [Right Arm] Lying Pulse Oximetry 98 Oxygen Delivery Method Room Air Sepsis Recent Fever Within 48 Hours Sepsis New/Unexplained Change in Mental Status Sepsis Action Taken by Nursing General: Demented and yelling out at times. HEENT: Head - normocephalic and atraumatic. Pupils are equal, round, and reactive to light. Extraocular eye muscles are intact, and sclera are anicteric. Nose - moist nasal mucosa without discharge. Mouth - moist buccal mucosa. Oropharynx is nonerythematous and there is no tonsillar exudate or edema noted. Neck: Supple; no JVD, nuchal rigidity, cervical lymphadenopathy. Heart: Regular rate and rhythm. There is a normal S1 and S2 with no murmurs, clicks, or gallops appreciated. Lungs: Clear to auscultation bilaterally with no wheezes, rales, or rhonchi. Abdomen: Soft, completely nontender, nondistended, with good bowel sounds. There are no palpable pulsatile masses or hepatosplenomegaly. There is no guarding, rigidity, or rebound noted. Extremities: The patient has multiple skin wounds about the lower extremities specifically the tib-fib regions. Skin: Deep ulcer on left buttocks, multiple wounds about his genitals, and wounds on both lower extremities. Skin is warm and dry with good turgor and no rashes. Course Course 0210: Past medical records reviewed. The patient was evaluated in room A11B. A c omplete history and physical exam was performed. A septic protocol was performed. I ordered continuous cardiac monitoring. The patient was normal sinus rhythm at 70. He has an indwelling Childs catheter. A specimen was obtained. A chest x-ray was performed. 0325: The patient appears more relaxed at this time. He was easily able to follow commands. 0349: [facility] Who will evaluate for further management. Administered Medications Discontinued Medications Sodium Chloride (Nss 1000ml) 1,000 mls @ 999 mls/hr IV .Q1H1M ONE Stop: 07/31/19 04:21 Last Infusion: 07/31/19 04:48 Dose: 0 mls/hr Documented by: [id number] Admin: 07/31/19 03:27 Dose: 999 mls/hr Documented by: [id number] Imipenem/Cilastatin Sodium 500 (mg/ Dextrose) 110 mls @ 100 mls/hr IV NOW STA; Protocol Stop: 07/31/19 04:48 Last Admin: 07/31/19 04:18 Dose: 100 mls/hr Documented by: [id number] Daptomycin 500 mg/ Syringe 10 mls @ 5 mls/min IV NOW STA; Protocol Stop: 07/31/19 03:44 Last Admin: 07/31/19 04:18 Dose: 5 mls/min Documented by: [id number] Medical Decision Making Differential Diagnosis Differential diagnosis: sepsis, wound infection, hypoglycemia, hyperglycemia. Medical Records Attestation: I reviewed the patient's medical records. Home Medications Current Medication List: was personally reviewed by me Laboratory Data Attestation: I reviewed the patient's lab results. Result diagrams: 07/31/19 02:38 07/31/19 02:38 Lab Results 07/31/19 07/31/19 07/31/19 Range/Units 02:38 02:38 02:38 WBC 12.39 H (4.8-10.8) K/uL RBC 3.17 L (4.7-6.1) M/uL Hgb 9.2 L (14.0-18.0) g/dL Hct 27.8 L (42-52) % MCV 87.7 (80-100) fL MCH 29.0 (25-34) pg MCHC 33.1 (32-36) g/dL RDW Std Deviation 52.1 H (36.4-46.3) fL RDW Coeff of Lucila 16.1 H (11.5-14.5) % Plt Count 386 (130-400) K/uL MPV 9.8 (7.4-10.4) fL Immature Gran % (Auto) 0.3 % Neut % (Auto) 86.6 % Lymph % (Auto) 7.7 % [place] % (Auto) 5.1 % Eos % (Auto) 0.2 % Baso % (Auto) 0.1 % Immature Gran # (Auto) 0.04 H (0.00-0.02) K/uL Neut # (Auto) 10.74 H (1.4-6.5) K/uL Lymph # (Auto) 0.95 L (1.2-3.4) K/uL [place] # (Auto) 0.63 H (0.11-0.59) K/uL Eos # (Auto) 0.02 (0-0.5) K/uL Baso # (Auto) 0.01 (0-0.2) K/uL PT 11.7 (9.0-12.0) Seconds INR 1.2 H (0.9-1.1) APTT 34.0 H (21.0-31.0) Seconds PTT Ratio 1.3 Sodium 134 L (136-145) mmol/L Potassium 5.6 H (3.5-5.1) mmol/L Chloride 101 (98-107) mmol/L Carbon Dioxide 25 (21-32) mmol/L Anion Gap 8.0 (3-11) BUN 132 H (7-18) mg/dl Creatinine 4.45 H (0.6-1.4) mg/dl Est Cr Clr Drug Dosing 14.6 ml/min Est GFR ( Amer) 14.2 Est GFR (Non-Af Amer) 12.2 BUN/Creatinine Ratio 29.6 H (10-20) Glucose 136 H (70-99) mg/dl Lactate (0.4-2.0) mmol/L Calcium 8.1 L (8.5-10.1) mg/dl Total Bilirubin 0.2 (0.2-1) mg/dl AST 10 L (15-37) U/L ALT 12 (12-78) U/L Alkaline Phosphatase 110 (45-117) U/L Total Protein 7.9 (6.4-8.2) gm/dl Albumin 2.2 L (3.4-5.0) gm/dl Globulin 5.7 H (2.5-4.0) gm/dl Albumin/Globulin Ratio 0.4 L (0.9-2) Urine Color Urine Appearance (Clear) Urine pH (4.5-7.5) Ur Specific [place] (1.000-1.030) Urine Protein (Negative) Urine Glucose (UA) (Negative) Urine Ketones (Negative) Urine Blood (Negative) Urine Nitrite (Negative) Urine Bilirubin (Negative) Urine Urobilinogen (Negative) Ur Leukocyte Esterase (Negative) Urine WBC (Auto) (0-5) /hpf Urine RBC (Auto) (0-4) /hpf U Hyaline Cast (Auto) (0-5) /lpf U Epithel Cells (Auto) (0-5) /lpf Urine Bacteria (Auto) (Negative) Ur Renal Epithelial Cell Urine Crystals Triple Phos Crystals (None Prsent) Other Crystals (None Prsent) Urine Yeast 07/31/19 07/31/19 Range/Units 03:07 03:15 WBC (4.8-10.8) K/uL RBC (4.7-6.1) M/uL Hgb (14.0-18.0) g/dL Hct (42-52) % MCV (80-100) fL MCH (25-34) pg MCHC (32-36) g/dL RDW Std Deviation (36.4-46.3) fL RDW Coeff of Lucila (11.5-14.5) % Plt Count (130-400) K/uL MPV (7.4-10.4) fL Immature Gran % (Auto) % Neut % (Auto) % Lymph % (Auto) % [place] % (Auto) % Eos % (Auto) % Baso % (Auto) % Immature Gran # (Auto) (0.00-0.02) K/uL Neut # (Auto) (1.4-6.5) K/uL Lymph # (Auto) (1.2-3.4) K/uL [place] # (Auto) (0.11-0.59) K/uL Eos # (Auto) (0-0.5) K/uL Baso # (Auto) (0-0.2) K/uL PT (9.0-12.0) Seconds INR (0.9-1.1) APTT (21.0-31.0) Seconds PTT Ratio Sodium (136-145) mmol/L Potassium (3.5-5.1) mmol/L Chloride (98-107) mmol/L Carbon Dioxide (21-32) mmol/L Anion Gap (3-11) BUN (7-18) mg/dl Creatinine (0.6-1.4) mg/dl Est Cr Clr Drug Dosing ml/min Est GFR ( Amer) Est GFR (Non-Af Amer) BUN/Creatinine Ratio (10-20) Glucose (70-99) mg/dl Lactate 1.9 (0.4-2.0) mmol/L Calcium (8.5-10.1) mg/dl Total Bilirubin (0.2-1) mg/dl AST (15-37) U/L ALT (12-78) U/L Alkaline Phosphatase (45-117) U/L Total Protein (6.4-8.2) gm/dl Albumin (3.4-5.0) gm/dl Globulin (2.5-4.0) gm/dl Albumin/Globulin Ratio (0.9-2) Urine Color Dark Yellow Urine Appearance Turbid A (Clear) Urine pH >= 9.0 H (4.5-7.5) Ur Specific [place] 1.019 (1.000-1.030) Urine Protein 2+ H (Negative) Urine Glucose (UA) 1+ H (Negative) Urine Ketones Negative (Negative) Urine Blood Negative (Negative) Urine Nitrite Positive A (Negative) Urine Bilirubin Negative (Negative) Urine Urobilinogen Negative (Negative) Ur Leukocyte Esterase 1+ H (Negative) Urine WBC (Auto) 1-5 (0-5) /hpf Urine RBC (Auto) 0-4 (0-4) /hpf U Hyaline Cast (Auto) 0 (0-5) /lpf U Epithel Cells (Auto) >30 H (0-5) /lpf Urine Bacteria (Auto) 1+ H (Negative) Ur Renal Epithelial Cell Not Reportable Urine Crystals Not Reportable Triple Phos Crystals Present A (None Prsent) Other Crystals Ammonium Biurate (None Prsent) Urine Yeast Not Reportable Imaging Data Attestation: I personally reviewed and interpreted this imaging study as follows : My Impression: Chest x-ray showed no acute pulmonary infiltrate or consolidation. Blood Pressure Blood Pressure Findings: Elevated blood pressure Blood Pressure Disposition: further management by hospitalist TANNER Narrative The patient is a 74 y/o male who presents to the emergency department via EMS from [facility] for evaluation of constant suspected sepsis from wounds on his groin that began earlier today. They found him to be hypothermic, hypotensive and hypoxic. EMS found stable vital signs on the patient. When he arrived here in the emergency department, he also had stable vital signs. There was no obvious signs of sepsis but the patient was in acute renal failure with a creatinine greater than 4. He had a BUN greater than 120 which is significantly concerning for prerenal azotemia. The patient was started on IV normal saline solution. Urinalysis from the Childs catheter reveals evidence of UTI. He was started on IV antibiotics. I discussed the case with the [facility] hospitalist and they will evaluate for further management. Impression & Plan Acute renal failure, UTI (urinary tract infection), Hyperkalemia Discharge Plan Visit Data *Final* Discharge Date/Time: 07/31/19 05:14 Chief Complaint: Altered Mental Status Stated Complaint: Altered mental status ED Provider: Savannah Lopez Discharge Problem: Acute renal failure, UTI (urinary tract infection), Hyperkalemia Patient Disposition: Being Evaluated by Hospitalist Discharge Instructions Interventions: ED Discharge Assessment Last Done: 07/31/19 05:14 Discharge Problem: Acute renal failure Qualifiers: Acute renal failure type: unspecified Qualified Code(s): N17.9 - Acute kidney failure, unspecified UTI (urinary tract infection) Qualifiers: Urinary tract infection type: site unspecified Hematuria presence: without hematuria Qualified Code(s): N39.0 - Urinary tract infection, site not specified The scribe's documentation has been prepared under my direction and personally reviewed by me in its entirety. I confirm that the note above accurately reflects all work, treatment, procedures, and medical decision making performed by me.
--- NOTE | 2019-07-31 07:12 | CT Scan Report ---
ABDOMEN AND PELVIS CT WITHOUT CONTRAST CT DOSE: 886.86 mGy.cm HISTORY: Acute kidney injury with acute generalized abdominal pain ZARA. ABDOMINAL DISCOMFORT. TECHNIQUE: Multiaxial CT images of the abdomen and pelvis were performed without contrast. A dose lo wering technique was utilized adhering to the principles of ALARA. COMPARISON STUDY: KUB of same day, CT abdomen and pelvis 11/05/2018 and 08/12/2018 FINDINGS: Limited exam without the use of IV contrast. The study is also limited secondary to positioning of th e patient's upper extremities. Trace left pleural effusion. Linear subsegmental bibasilar consolidati on suggests atelectasis. 9 x 6 mm solid nodule of the lingula, image 32 series 3. This appears unchan ged dating back to 08/12/2018. There is no pneumatosis or pneumoperitoneum. The imaged inferior cardiac chambers are enlarged. Coronary arterial calcifications are noted. Peripheral calcification within t he gallbladder suggests calcification within the wall versus large cholelithiasis. No CT evidence of acute cholecystitis. There is suggestion of mild common bile duct dilation. No choledocholithiasis id entified. Unenhanced liver, spleen and right adrenal gland are unremarkable. Mild left adrenal gland thickening. Moderate to advanced pancreatic atrophy. Nonspecific bilateral perinephric stranding. Mild to moderate symmetric bilateral hydroureteronephros is with dilation of the ureters extending to the level of the ureterovesicular junctions. No obstruct ing renal calculi or lesions identified. Moderate urinary bladder distention measures up to 14.5 cm i n length. Mild perivesicular stranding. Childs catheter in place. Mild prostamegaly. Advanced calcifie d plaque the abdominal aorta. Infrarenal IVC filter. No adenopathy. Gastrostomy tube appears to be in satisfactory positioning within the mid gastric body. Extensive fec al retention. The rectum is distended measuring up to 3.67 m transversely. Mild rectal wall thickenin g is noted with perirectal stranding. The appendix is not visualized. No bowel obstruction. Mild gene ralized body wall edema. Demineralized appearance of the bones. The left femoral head is subluxed sup eriorly and posteriorly in relation to the acetabular fossa. Chronic this articulation of the right f emoral acetabular joint with multiple right femoral acetabular periarticular heterotopic ossification s redemonstrated. There is a large decubitus ulcer of the right gluteal distribution with partially a ir-filled tract extending towards the right femoral acetabular joint measuring up to 4.9 cm in length . Skin thickening within this distribution is noted without drainable fluid collection. IMPRESSION: 1. Childs catheter is noted within a moderately distended urinary bladder. Additionally, there is mild to moderate symmetric bilateral hydroureteronephrosis. Findings are concerning for possible Childs ca theter dysfunction. 2. Extensive fecal retention. Wall thickening with mild adjacent stranding involves the rectum suspic ious for stercoral proctitis. 3. No bowel obstruction, pneumatosis or pneumoperitoneum. 4. Trace left pleural effusion with linear bibasilar consolidative opacities suggestive of atelectasi s. 5. Decubitus ulcer of the right gluteal tissues redemonstrated with partially air-filled tract extend ing towards the posterior aspect of the right femoral acetabular joint. 6. Chronic osseous deformities of the hips and pelvis as above. 7. Unchanged 10 mm solid nodule of the inferior segment lingula, stable from 08/12/2018. 8. Additional findings as above. ACT 112: Negative or not required by law. Please refer to below summary of Fleischner criteria recommendations for follow-up of incidental CT n odules (Lopez Caballero, Guidelines for management of small pulmonary nodules detected on CT scans: A sta tement from the Fleischner Society, Radiology 237: [phone].) SOLID NODULES Solitary nodule size: <6 mm * Low risk patients: no follow-up needed * high risk patients: optional CT at 12 months Solitary nodule size: 6-8 mm * Low risk patients: follow-up at 6-12 months, then consider further follow-up at 18-24 months * high risk patients: initial follow-up CT at 6-12 months and then at 18-24 months if no change Solitary nodule size: >8 mm * either low or high risk patients - consider follow-up CT at 3 months, and/or CT-PET, and/or biopsy Multiple nodules size: <6 mm * Low risk patients: no routine follow-up * high risk patients: optional CT at 12 months Multiple nodules size: 6-8 mm * Low risk patients: follow-up at 3-6 months, then consider further follow-up at 18-24 months * high risk patients: follow-up at 3-6 months, then at 18-24 months if no change Multiple nodules size: >8 mm * Low risk patients: follow-up at 3-6 months, then consider further follow-up at 18-24 months * high risk patients: follow-up at 3-6 months, then at 18-24 months if no change Note: newly detected indeterminate nodule in persons 35 years of age or older. * Low risk patients: minimal or absent history of smoking and/or other known risk factors * high risk patients: history of smoking or of other known risk factors (e.g. first degree relative with lung cancer, or exposure to asbestos, radon, uranium) * if a nodule up to 8 mm is partly solid or is ground glass further follow-up is required after 24 m onths to exclude possible slow growing adenocarcinoma ([place]) SUBSOLID NODULES Solitary pure ground-glass nodule * nodule size <6 mm - no CT follow-up required * nodule size >=6 mm - follow-up CT at 6-12 months, then every 2 years until 5 years Solitary part-solid nodule * nodule size <6 mm - no CT follow-up required * nodule size >=6 mm - follow-up CT at 3-6 months. If unchanged, and solid component remains <6 mm, then annual follow-up for 5 years Multiple subsolid nodules * nodule size <6 mm - follow-up CT at 3-6 months, consider further follow-up at 2 and 4 years if sta ble * nodule size >=6 mm - follow-up CT at 3-6 months, subsequent management based on the most suspiciou s nodule(s) The above report was generated using voice recognition software. It may contain grammatical, syntax o r spelling errors. Electronically signed by: Félix Houston M.D. 07/31/2019 7:11 AM
[2019-07-31] MEDS ORDERED: PIPERACILLIN/TAZOBACTAM 4.5 GM in DEXTROSE 5% 100 ML IV SCH (08:00)
[2019-07-31] MEDS: risperiDONE 0.5 MG TABLET PEG SCH ×2 (08:57→22:30)
[2019-07-31] MEDS ORDERED: METOPROLOL SUCC 25MG EXT REL TAB PO SCH (09:00)
[2019-07-31] MEDS ORDERED: PANTOprazole 40 MG TAB PO SCH (09:00)
[2019-07-31] MEDS ORDERED: DOCUSATE SODIUM 100 MG CAP PO SCH (09:00)
[2019-07-31] MEDS ORDERED: PROTEIN SUPPLEMENT PO SCH (09:00)
[2019-07-31] MEDS ORDERED: FERROUS SULFATE 325 MG TAB PO SCH (09:00)
[2019-07-31] MEDS ORDERED: THIAMINE HCL 100 MG TAB PO SCH (09:00)
[2019-07-31] MEDS ORDERED: DIVALPROEX SODIUM SPRINKLE 125 MG CAP PO SCH (09:00)
[2019-07-31] MEDS ORDERED: DAPTOmycin 500 MG VIAL IV SCH (09:00)
[2019-07-31] MEDS: CHECK FENTANYL PATCH PLACEMENT SCH ×2 (09:01→16:45)
--- NOTE | 2019-07-31 09:36 | Nephrology Consultation ---
Date of Consultation July 31, 2019 Assessment & Plan (1) Acute renal failure: presenting creatinine 4.45; baseline 0.8-1.1; already on slight uptrend earlier this month (1.3 on 07/11) -recheck 1300 >> labs basically unchanged >> ordered recheck as below; will also -cont to avoid nephrotoxins and to treat uti ->>concerning that he is 2.3L+ and minimal if any felix output and with BL hyd roureteronephrosis on CT and bladder distension>> discussed w/ nursing to ensure felix flushes/works; asked her to bladder scan after this and if > 300 mL retained urine, to call hospitalist who may need to involve urology urgently -no urgent indication for dialysis but cannot rule out need; he is a very poor candidate for dialysis Present on Admission?: Yes (2) Acute hyperkalemia: had kayexalate x 1 PEG > no BM reported today -changed NS to 1/2 NS w/ 75 mEq / L sodium bicarb at 125 ml/hr initially -asked nursing to update me on results of 1300 bmp >> K still elevated and gave 5 units IV insulin/ D50 amp and increased ivf rate to 150 mL hourly -if voiding he might tolerate higher IVF rate >> need to ensure urine flow first -repeat bmp ordered 1999 -when taking tube feeds, ensure he has low k feeds Present on Admission?: Yes History of Present Illness Reason for Consultation: ZARA Requesting Physician: Dr Dash Attending Physician: Areli Reyes MD History of Present Illness 74 y/o M whom I'm asked to see for ZARA after he was admitted over night w/ concern for sepsis from chronic wounds after he developed altered MS. PMH includes HTN, chronic systolic HF, CAD, severe malnutrition, DVT s/p IVC filter, osteomyelitis, hypothyroid, GERD, schizoid personality disorder, recurrent MDR UTIs and chronic felix, chronic decubiti, chronic anemia, ? dementia per ER summary of facility report. He is a [facility] resident. He had a L NS in ER as well as a dose of daptomycin and imipenem. His presenting labs at 0240: creat 4.5 (baseline 0.8-1.1), K 5.6, BUN 132, WBC 12.4, hgb 9.2, lactate 1.9. UA w/ turbid dark yellow urine w/ >30 epithelial cells and + for LE, bacteria, nitrites, glucose, protein, triple phosphate crystals. He was given 30 gm kayexalate at 0745. Allergies Allergy/AdvReac Type Severity Reaction Status Date / Time iodine Allergy Unknown Unknown Verified 07/31/19 03:49 onion AdvReac Intermediate vomitting Verified 07/31/19 03:49 Home Medications Home Medications Medication Instructions Recorded Confirmed Type B [id number] 1 tab FEEDING TUBE DAILY 03/14/19 07/31/19 History Eliquis 5 mg PO BID 03/14/19 07/31/19 History acetaminophen [Tylenol] 650 mg PO Q4 PRN MDD 3gm/24hr 03/14/19 07/31/19 History baclofen 5 mg PO TID 03/14/19 07/31/19 History bisacodyl [Dulcolax (bisacodyl)] 10 mg VT UD PRN 03/14/19 07/31/19 History divalproex 500 mg PO BID 03/14/19 07/31/19 History docusate sodium 100 mg PO BID 03/14/19 07/31/19 History fentanyl [Duragesic] 1 patch TOPICAL [id number] 03/14/19 07/31/19 History folic acid 1 mg PO DAILY 03/14/19 07/31/19 History levothyroxine [Synthroid] 25 mcg PO DAILY 03/14/19 07/31/19 History melatonin 3 mg PO HS 03/14/19 07/31/19 History metoprolol succinate [Toprol XL] 25 mg PO UD 03/14/19 07/31/19 History oxycodone [Roxicodone] 5 mg PO Q6H 03/14/19 07/31/19 History thiamine HCl (vitamin B1) 100 mg PO DAILY 03/14/19 07/31/19 History tramadol [Ultram] 50 mg PO Q6 PRN 03/14/19 07/31/19 History cephalexin [Keflex] 500 mg FEEDING TUBE QID 07/29/19 07/31/19 History magnesium hydroxide [Milk of 30 ml FEEDING TUBE DAILY PRN 07/29/19 07/31/19 History Magnesia] risperidone [Risperdal] 0.5 mg FEEDING TUBE BID 07/29/19 07/31/19 History Saccharomyces boulardii 250 mg PO BID 07/31/19 07/31/19 History acetaminophen 650 mg PO Q6H PRN MDD 3gm/24hr 07/31/19 07/31/19 History esomeprazole magnesium [Nexium 40 mg PO DAILY 07/31/19 07/31/19 History Packet] ferrous sulfate 325 mg FEEDING TUBE BID 07/31/19 07/31/19 History multivit,stress formula-zinc 1 tab PO DAILY 07/31/19 07/31/19 History [Stress Formula with Zinc] nut.tx. metabolic disorder,soy 1 ea FEEDING TUBE UD 07/31/19 07/31/19 History [Perative] protein supplement 1 ea PO BID 07/31/19 07/31/19 History Patient History Medical History Anemia (Chronic) Anxiety (Chronic) Bacteremia Chronic pain (Chronic) Chronic systolic CHF (congestive heart failure) (Chronic) Coronary artery disease (Chronic) s/p [place] 2007 Decubitus ulcer (Chronic) multiple, chronic Depression Dyslipidemia (Chronic) Esophagitis Felix catheter in place GERD (gastroesophageal reflux disease) (Chronic) History of Clostridium difficile colitis (Chronic) History of DVT (deep vein thrombosis) (Chronic) LLE 2017 History of electroconvulsive therapy (Chronic) History of ESBL E. 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 Felix cath. Wound infection (Acute) Pseudomonas PEG site October 2018 Surgical History History of appendectomy (Chronic) S/P PICC central line placement Status post insertion of percutaneous endoscopic gastrostomy (PEG) tube (Chronic) Sep 2018 Family History Other Family history non-contributory Social History Preferred Language: Indonesian Communication Ability: Impaired Accreditation Coordinator Required: No Beliefs That Will Affect Care: None marital status: Unknown Current Living Situation: Long-Term Current Living Situation Comment: [place] Feels Safe at Home: Declines to Answer Smoking Status: Unknown if ever smoked Review of Systems Review of Systems: Unobtainable due to mental health condition (pt anxious/unwilling to discuss sx; shouting about going home) Physical Exam Constitutional: well developed, + thin, + frail appearing and + in distress (anxious, [place]) Eyes: EOM intact bilaterally ENMT: Ears: + hearing impairment; no external ear abnormality Nose: no external nose abnormality Mouth: + dry oral mucous membranes Neck: no nuchal rigidity Respiratory: normal respiratory effort Auscultation: lungs clear to auscultation bilaterally and + diminished lung sounds Cardiovascular: RRR, no murmur, no edema Gastrointestinal (Abdomen): Inspection/Auscultation: normal bowel sounds Percussion/Palpation: abdomen soft; abdomen nontender Musculoskeletal: Extremities: strength 5/5 throughout Skin: no rashes, warm and dry + ulcer (L hip w/ dressing, drainage; 6 cm on photo) Neurologic: lai, fluent speech, limited insight, some tremor Psychiatric: Orientation: alert and oriented to person Eye Contact: + fair eye contact Speech: + loud speech Affect: + anxious affect Insight: + limited insight Judgement: + limited judgement Genitourinary: felix w/ cloudy urine light colored Results & Data Vital Signs (Past 12 Hours) Vital Signs Temp Pulse Pulse Resp BP BP Pulse Ox 07/31/19 07:17 36.5 C 107 H 22 169/84 H 97 07/31/19 06:59 36.4 C L 96 H 20 126/77 97 07/31/19 06:00 36.5 C 107 H 22 169/84 H 97 07/31/19 05:14 72 20 108/60 99 07/31/19 03:50 75 18 113/61 98 07/31/19 02:47 99 H 99 07/31/19 02:25 36.1 C L 95 H 18 124/72 99 07/31/19 02:01 36.1 C L 91 H 18 114/84 97 Laboratory Results 07/31/19 02:38 07/31/19 02:[address] abd/pelvis noncon Limited exam without the use of IV contrast. The study is also limited secondary to positioning of the patient's upper extremities. Trace left pleural effusion. Linear subsegmental bibasilar consolidation suggests atelectasis. 9 x 6 mm solid nodule of the lingula, image 32 series 3. This appears unchanged dating back to 08/12/2018. There is no pneumatosis or pneumoperitoneum. The imaged inferior cardiac chambers are enlarged. Coronary arterial calcifications are noted. Peripheral calcification within the gallbladder suggests calcification within the wall versus large cholelithiasis. No CT evidence of acute cholecystitis. There is suggestion of mild common bile duct dilation. No choledocholithiasis identified. Unenhanced liver, spleen and right adrenal gland are unremarkable. Mild left adrenal gland thickening. Moderate to advanced pancreatic atrophy. Nonspecific bilateral perinephric stranding. Mild to moderate symmetric bilateral hydroureteronephrosis with dilation of the ureters extending to the level of the ureterovesicular junctions. No obstructing renal calculi or lesions identified. Moderate urinary bladder distention measures up to 14.5 cm in length. Mild perivesicular stranding. Felix catheter in place. Mild prostamegaly. Advanced calcified plaque the abdominal aorta. Infrarenal IVC filter. No adenopathy. Gastrostomy tube appears to be in satisfactory positioning within the mid gastric body. Extensive fecal retention. The rectum is distended measuring up to 3.67 m transversely. Mild rectal wall thickening is noted with perirectal stranding. The appendix is not visualized. No bowel obstruction. Mild ge neralized body wall edema. Demineralized appearance of the bones. The left femoral head is subluxed superiorly and posteriorly in relation to the acetabular fossa. Chronic this articulation of the right femoral acetabular joint with multiple right femoral acetabular periarticular heterotopic ossific ations redemonstrated. There is a large decubitus ulcer of the right gluteal distribution with partially air-filled tract extending towards the right femoral acetabular joint measuring up to 4.9 cm in length. Skin thickening within this distribution is noted without drainable fluid collection. IMPRESSION: 1. Felix catheter is noted within a moderately distended urinary bladder. Additionally, there is mild to moderate symmetric bilateral hydroureteronephrosis. Findings are concerning for possible Felix catheter dysfunction. 2. Extensive fecal retention. Wall thickening with mild adjacent stranding involves the rectum suspicious for stercoral proctitis. 3. No bowel obstruction, pneumatosis or pneumoperitoneum. 4. Trace left pleural effusion with linear bibasilar consolidative opacities suggestive of atelectasis. 5. Decubitus ulcer of the right gluteal tissues redemonstrated with partially air-filled tract extending towards the posterior aspect of the right femoral acetabular joint. 6. Chronic osseous deformities of the hips and pelvis as above. 7. Unchanged 10 mm solid nodule of the inferior segment lingula, stable from 08/12/2018. 8. Additional findings as above. cxr no acute process kub 1. Gastrostomy tube projects over the epigastric abdomen. 2. No definite pneumatosis or pneumoperitoneum. 3. Extensive fecal retention redemonstrated. (1) Acute renal failure Acute renal failure type: unspecified Qualified Code(s): N17.9 - Acute kidney failure, unspecified
[2019-07-31] MEDS ORDERED: Nursing to Pharmacy Communication ONE (09:39)
--- NOTE | 2019-07-31 10:14 | Progress Note ---
Date of Service July 31, 2019 Subjective Patient was scheduled for elective bedside PEG tube exchange duye to malfunctioning current tube with breaks and leaks from the tube, however he is admitted now for UTI and sepsis. Consent was obtained from the brother for bedside PEG tube exchange. The current tube was removed using gentle traction, stoma appeared normal, a new replacement 18 Fr tube was placed and balloon inflated with 20cc of water. External bumper around 3 cm. Gastric contents were aspirated from the tube and auscultation of air push confirmed the tube in stomach. Can use the tube today. Results & Data Vital Signs (Past 12 Hours) Vital Signs Temp Pulse Pulse Resp BP BP Pulse Ox 07/31/19 07:17 36.5 C 107 H 22 169/84 H 97 07/31/19 06:59 36.4 C L 96 H 20 126/77 97 07/31/19 06:00 36.5 C 107 H 22 169/84 H 97 07/31/19 05:14 72 20 108/60 99 07/31/19 03:50 75 18 113/61 98 07/31/19 02:47 99 H 99 07/31/19 02:25 36.1 C L 95 H 18 124/72 99 07/31/19 02:01 36.1 C L 91 H 18 114/84 97
[2019-07-31] MEDS ORDERED: ACETAMINOPHEN 325 MG TAB PEG PRN (10:15)
[2019-07-31] MEDS ORDERED: POLYETHYLENE (MIRALAX) 17 GM PACK PEG PRN (10:30)
[2019-07-31] MEDS: APIXABAN 5 MG TABLET PO SCH ×2 (10:53→22:24)
[2019-07-31] MEDS: BACLOFEN 10 MG TAB PO SCH ×3 (10:54→22:23)
[2019-07-31] MEDS: SACCHAROMYCES BOULARDII 250 MG CAP PO SCH ×2 (10:54→22:25)
[2019-07-31] MEDS: FOLIC ACID 1 MG TAB PO SCH (10:54)
[2019-07-31] MEDS: CEROVITE ADV FORMULA TAB PO SCH (10:55)
[2019-07-31] MEDS: VITAMIN B COMPLEX TAB PO SCH (10:55)
[2019-07-31] MEDS ORDERED: LANSOPRAZOLE 30 MG SOLTAB PEG ONE (11:00)
--- NOTE | 2019-07-31 11:08 | History and Physical Report ---
DATE OF ADMISSION: 07/31/2019 CHIEF COMPLAINT: Altered mental status. HISTORY OF PRESENT ILLNESS: This is a 74-year-old male with past medical history significant for hypertension, chronic systolic CHF, CAD, severe malnutrition, DVT status post IVC filter, history of osteomyelitis, hypothyroidism, GERD, schizoid personality disorder, hyperlipidemia, recurrent multidrug resistant UTIs, chronic anemia, chronic decubitus wounds with wound cultures growing pseudomonas and MRSA in the past , resident of [facility], was brought in because of altered mental status. They could not wake up the patient, he was hypotensive and hypothermic and was brought in here. Currently drowsy, but arousable. The patient has baseline dementia and confusion. He says he is fine and he wants me to leave the room and goes back to sleep. He is on PEG tube feeds. Currently, temperature of 36.1, blood pressure is okay. Lactate is 1.9. WBC is 12.3. Creatinine is 4.4. UA is positive and have h multiple decubitus ulcers. I could not get any history from the patient and tried to call [facility] but not able to talk to the staff. As per POLST form, he is a full code. ALLERGIES: Iodine and onion. PAST MEDICAL HISTORY: As mentioned above. PAST SURGICAL HISTORY: History of DVT, status post IVC filter, status post PEG tube placement, status post PICC line in the past. MEDICATIONS: The patient seems to be on Tylenol 650 mg p.o. q. 6 hours p.r.n., B complex via feeding tube daily, baclofen 5 mg p.o. daily, Dulcolax 10 mg NC p.r.n., Keflex 500 mg p.o. q.i.d., divalproex 500 mg p.o. b.i.d., Colace 150 mg p.o. daily, Eliquis 5 mg p.o. b.i.d., Nexium 40 mg p.o. daily, fentanyl patch, ferrous sulfate 325 mg p.o. b.i.d., folic acid 1 mg p.o. daily, Synthroid 25 mcg p.o. daily, milk of magnesia p.r.n., melatonin 3 mg p.o. every night, Toprol-XL 25 mg p.o. daily, multivitamins daily, Perative tube feeds oxycodone 5 mg p.o. q. 6 hours, protein supplement p.o. b.i.d., risperidone 0.5 mg p.o. b.i.d., probiotic, thiamine 100 mg p.o. daily, tramadol 50 mg p.o. q.6 p.r.n. FAMILY HISTORY: Noncontributory. SOCIAL HISTORY: Currently living at [facility]. Smoking history: Unknown. No alcohol use. No substance abuse. REVIEW OF SYMPTOMS: Unobtainable at this time. PHYSICAL EXAMINATION: GENERAL: The patient is drowsy but arousable, currently not oriented. VITAL SIGNS: Temperature 36.1, pulse 74, respiratory rate 18, blood pressure 113/61, oxygen 98% room air. HEENT: No pallor, no icterus. NECK: No JVD, no neck masses. CARDIOVASCULAR: S1, S2 heard, regular rate and rhythm, no murmur, no gallop. RESPIRATORY SYSTEM: No neck JVD. No neck masses. ABDOMEN: Soft, bowel sounds sluggish, mild abdominal discomfort. Mild guarding. No rigidity. CENTRAL NERVOUS SYSTEM: Drowsy but arousable, not oriented and does not obey commands. EXTREMITIES: Bilateral lower extremities dressings. No edema seen. SKIN: Multiple decubitus ulcers seen. Stage IV on the left buttock, lower extremity wounds and dressing. LABORATORY DATA: WBC 12.3, hemoglobin 9.2, hematocrit 27.8, platelet count 386. Sodium 134, potassium 5.6, chloride 101, bicarbonate 25, BUN 42, creatinine 4.4, serum glucose 136, lactate 1.9, calcium 8.1, total bilirubin 0.2, AST 10, ALT 12, alkaline phosphatase is 110. Urinalysis positive for nitrites and leukocyte esterase. Chest x-ray, no acute disease seen. EKG: Normal sinus rhythm, rate of 88. Right bundle branch block seen, left anterior fascicular block. No significant change from previous EKG. ASSESSMENT AND PLAN: This 74-year-old male who presents with altered mental status. 1. Altered mental status. The patient has baseline dementia and confusion. He was not able to arousable and more lethargic and hypotensive and hypothermic at [facility] .In ER has mild hypothermia, but blood pressure is okay and lactate is ok but with elevated white count of 12.3.Possible sepsis with hypothermia, elevated white count and altered mental status and urinary tract infection and has multiple decubitus ulcers. Empirically started on IV daptomycin and IV Zosyn. Follow the cultures. IV fluids and normal saline at 100 mL per hour. 2. Alerted mental status with possible metabolic encephalopathy secondary to acute kidney injury. Baseline creatinine 1.1, current creatinine of 4.4. Starting on IV fluids. Avoid nephrotoxic agents. We will get ct abd/plevis for any obstruction, chronic Childs.Nephrology consult. 3. Hyperkalemia. Potassium 5.6. We will give Kayexalate and follow repeat labs. 4. Urinary tract infection. Antibiotics as above. Follow the cultures. 5. Multiple decubitus ulcers, stage IV on his left buttock as well as lower extremity wounds. We will consult wound care. Follow the recommendation. ID consult.. 6. Dementia and agitation. The patient has been recently started on Risperdal, which we will continue.If mental status does not improve will hold his home pain meds and sedating meds. 7. Nutrition: Tube feedings and dietitian consult. 8. Chronic systolic congestive heart failure, not on any diuretics. Currently, getting fluids.Monitor for volume overload. We will get an echocardiogram as we do not have the records. 9. Chronic pain; Continue home pain meds for now. 10. Hypothyroidism, on Synthroid. 11. Gastroesophageal reflux disease. Continue PPI. 12. History of thromboembolism, status post IVC filter, on Eliquis. Code status. Full code as per POLST form. DISPOSITION: Admit to tele floor. PT and OT. Social Service to help with discharge planning. We will try to call again [facility] later to know his baseline mental status, ambulatory status and diet.. DENG
[2019-07-31] MEDS ORDERED: INFLUENZA Vaccine HIGH DOSE 65+yrs 0.5 mL Syr IM ONE (12:00)
[2019-07-31] MEDS ORDERED: PNEUMOCOCCAL Polysaccharide Vaccine 25mcg/0.5mL vial/Syr IM ONE (12:00)
--- NOTE | 2019-07-31 12:09 | Hospitalist Progress Note ---
Date of Service July 31, 2019 Assessment & Plan (1) Change in mental status: [facility] with possible change in mental status Does not have any acute distress and is not communicating verbally this morning Doubt any stroke (2) Acute renal failure: Creatinine has been very high at 4.45 from 1.27 on sixth of this month Likely secondary to severe dehydration Appreciate nephrology input and recommendation Has been on half normal saline with bicarb drip as per nephrology Will monitor PRP Present on Admission?: Yes (3) Hyperkalemia: Secondary to acute renal impairment Has been on bicarb drip We will monitor (4) Chronic indwelling Childs catheter: Urine culture is pending Blood culture is pending (5) Severe protein-calorie malnutrition: Continue PEG tube feeding (6) Decubitus ulcer: Has significant sacral decubiti, stage IV as in the picture Will get CT of the pelvis to rule out any osteomyelitis and/or hip joint effusion Appreciate wound care input and recommendation Has been started on intravenous daptomycin and Zosyn Await blood and wound cultures (7) Schizoid personality disorder: No acute symptoms (8) Hypothyroidism: Continue replacement (9) Chronic systolic CHF (congestive heart failure): No acute CHF Has been getting intravenous fluid and will monitor for any fluid overload (10) HTN (hypertension): We will continue current medication (11) Anxiety: No acute issue Subjective 07/31 The patient was seen and examined in medical floor He is a 74-year-old male with significant past medical history of hypertension, chronic systolic CHF, CAD, severe malnutrition, DVT with status post IVC filter with history of recurrent UTI and sepsis, schizoaffective disorder and bedbound with sacral decubiti was admitted with change in mental status from [facility] yesterday Remains stable but not being communicating this morning Review of Systems Review of Systems: Patient is not communicative this morning Physical Exam Physical Exam: Lying in bed in flexed posture without any acute distress Constitutional: + ill appearing, + thin and + cachectic Eyes: PERRL, conjunctivae normal, anicteric sclerae ENMT: external ear and nose normal, oropharynx normal Neck: trachea midline, no thyromegaly Respiratory: normal respiratory effort Auscultation: + diminished lung sounds Cardiovascular: Rate/Rhythm: regular rate and regular rhythm Heart Sounds: no murmur Gastrointestinal (Abdomen): Inspection/Auscultation: + abdomen abnormal to inspection and + abnormal bowel sounds (Bowel sounds sluggish) Percussion/Palpation: abdomen nontender Status post PEG tube placement and the site seems to be intact Musculoskeletal: Has flexural contractions involving the upper and lower extremities Skin: Chronic sacral sacral decubiti ulcer. Stage IV , size about 6 cm Neurologic: Alert and awake, not communicating this morning, generally weak with flexure deformity involving the extremities secondary to bedbound status Lymphatic: no cervical or axillary lymphadenopathy Results & Data Vital Signs (Past 12 Hours) Vital Signs Temp Pulse Pulse Resp BP BP Pulse Ox 07/31/19 11:00 36.6 C 89 18 121/63 97 07/31/19 07:17 36.5 C 107 H 22 169/84 H 97 07/31/19 06:59 36.4 C L 96 H 20 126/77 97 07/31/19 06:00 36.5 C 107 H 22 169/84 H 97 07/31/19 05:14 72 20 108/60 99 07/31/19 03:50 75 18 113/61 98 07/31/19 02:47 99 H 99 07/31/19 02:25 36.1 C L 95 H 18 124/72 99 07/31/19 02:01 36.1 C L 91 H 18 114/84 97 Laboratory Results Short CBC 07/31/19 Range/Units 02:38 WBC 12.39 H (4.8-10.8) K/uL Hgb 9.2 L (14.0-18.0) g/dL Hct 27.8 L (42-52) % Plt Count 386 (130-400) K/uL BMP 07/31/19 02:38 Sodium 134 L Potassium 5.6 H Chloride 101 Carbon Dioxide 25 BUN 132 H Creatinine 4.45 H Glucose 136 H Calcium 8.1 L Liver Function 07/31/19 Range/Units 02:38 Total Bilirubin 0.2 (0.2-1) mg/dl AST 10 L (15-37) U/L ALT 12 (12-78) U/L Alkaline Phosphatase 110 (45-117) U/L Albumin 2.2 L (3.4-5.0) gm/dl Urine 07/31/19 Range/Units 03:15 Urine Color Dark Yellow Urine Appearance Turbid A (Clear) Urine pH >= 9.0 H (4.5-7.5) Ur Specific [place] 1.019 (1.000-1.030) Urine Protein 2+ H (Negative) Urine Glucose (UA) 1+ H (Negative) Medications Administered Current Inpatient Medications Acetaminophen (Tylenol) 650 mg PEG Q4H PRN PRN Reason: Pain or Fever Stop: 08/30/19 05:41 Apixaban (Eliquis) 5 mg PO BID [facility] Stop: 08/30/19 08:59 Last Admin: 07/31/19 10:53 Dose: Not Given Documented by: Baclofen (Lioresal) 5 mg PO TID [facility] Stop: 08/30/19 08:59 Last Admin: 07/31/19 10:54 Dose: Not Given Documented by: Bisacodyl (Dulcolax) 10 mg HI UD PRN PRN Reason: 3RD DAY WITH NO BM Stop: 08/30/19 05:41 Divalproex Sodium (Depakote Sprinkle) 500 mg PEG BID [facility] Stop: 08/30/19 08:59 Docusate Sodium (Colace) 100 mg PEG BID [facility] Stop: 08/30/19 10:59 Enteral Nutritional Formula (Peptamen 1.5 Daryl) 1,080 ml PEG TODAY@1100 DIOR; Protocol Stop: 08/30/19 10:59 Fentanyl (Duragesic) 25 mcg TD Q72H [facility] Stop: 08/15/19 08:59 Ferrous Sulfate (Feosol) 325 mg PEG BID [facility] Stop: 08/30/19 10:59 Folic Acid (Folvite) 1 mg PO DAILY [facility] Stop: 08/30/19 08:59 Last Admin: 07/31/19 10:54 Dose: Not Given Documented by: Sodium Bicarbonate 75 meq/ (Sodium Chloride) 1,075 mls @ 125 mls/hr IV .Q8H36M [facility] Stop: 08/30/19 11:14 Lansoprazole (Prevacid) 30 mg PEG DAILY [facility] Stop: 08/31/19 08:59 Levothyroxine Sodium (Synthroid) 25 mcg PEG DAILYBB [facility] Stop: 08/30/19 06:29 Magnesium Hydroxide (Milk Of Magnesia) 30 ml PEG DAILY PRN PRN Reason: Constipation Stop: 08/30/19 05:41 Metoprolol Tartrate (Lopressor) 12.5 mg PO BID [facility] Stop: 08/30/19 08:59 Miscellaneous (Fentanyl Patch Remove & Waste) 1 ea N/A Q3D [facility] Stop: 08/31/19 08:58 Miscellaneous (Fentanyl Patch Check Placement) 1 ea N/A QS [facility] Stop: 08/30/19 07:59 Last Admin: 07/31/19 09:01 Dose: 1 ea Documented by: Miscellaneous Information (Consult) 1 ea N/A UD PRN PRN Reason: Consult Stop: 08/30/19 05:52 Miscellaneous Information (Consult) 1 ea N/A UD PRN PRN Reason: Consult Stop: 08/30/19 05:41 Multivitamins/Minerals (Multivitamin W/ Minerals Tab) 1 tab PO DAILY [facility] Stop: 08/30/19 08:59 Last Admin: 07/31/19 10:55 Dose: Not Given Documented by: Nitroglycerin (Nitrostat) 0.4 mg SL UD PRN PRN Reason: Chest Pain Stop: 08/30/19 05:41 Nutritional Formula (Prosource No Carb) 30 ml PEG BID [facility] Stop: 08/30/19 10:59 Ondansetron HCl (Zofran) 4 mg IV Q6H PRN PRN Reason: Nausea Stop: 08/30/19 05:41 Oxycodone HCl (Roxicodone Immediate Rel) 5 mg PEG Q6 [facility] Stop: 08/14/19 06:14 Polyethylene Glycol (Miralax Powder Packet) 17 gm PEG DAILY PRN PRN Reason: Constipation Stop: 08/30/19 05:41 Risperidone (Risperdal) 0.5 mg PEG BID [facility] Stop: 08/30/19 08:59 Last Admin: 07/31/19 08:57 Dose: 0.5 mg Documented by: Saccharomyces Boulardii (Florastor) 250 mg PO BID [facility] Stop: 08/30/19 08:59 Last Admin: 07/31/19 10:54 Dose: Not Given Documented by: Thiamine HCl (Vitamin B-1) 100 mg PEG DAILY [facility] Stop: 08/30/19 08:59 Tramadol HCl (Ultram) 50 mg PO Q6 PRN PRN Reason: PAIN 4-10 Stop: 08/30/19 05:41 Vitamin B Complex (Vitamin B Complex) 1 tab PO DAILY [facility] Stop: 08/30/19 08:59 Last Admin: 07/31/19 10:55 Dose: Not Given Documented by: (1) Acute renal failure Acute renal failure type: unspecified Qualified Code(s): N17.9 - Acute kidney failure, unspecified (2) Hypothyroidism Hypothyroidism type: other Qualified Code(s): E03.8 - Other specified hypothyroidism (3) HTN (hypertension) Hypertension type: essential hypertension Qualified Code(s): I10 - Essential (primary) hypertension
[2019-07-31] MEDS: FERROUS SULFATE 325 MG/7.4 ML UDP PEG SCH ×2 (12:11→22:31)
[2019-07-31] MEDS: DOCUSATE SODIUM SYRUP 100 MG/10 ML UDC PEG SCH ×3 (12:11→22:27)
[2019-07-31] MEDS: DIVALPROEX SODIUM SPRINKLE 125 MG CAP PEG SCH ×2 (12:11→22:26)
[2019-07-31] MEDS: PROSOURCE NO CARB 30 ML/PKT PEG SCH ×2 (12:12→22:29)
[2019-07-31] MEDS: METOPROLOL TARTRATE 25 MG TAB PO SCH ×2 (12:22→22:29)
--- NOTE | 2019-07-31 13:11 | CT Scan Report ---
CT pelvis wo con CT DOSE: 1010.86 mGy.cm CLINICAL HISTORY: Right hip pain. Confusion. Possible osteomyelitis. TECHNIQUE: Helical images were acquired in the pelvis. No intravenous contrast was administered. A d ose lowering technique was utilized adhering to the principles of ALARA. COMPARISON STUDY: CT scan dated August 12, 2018 FINDINGS: There is evidence for fecal retention. The rectum is distended measuring 8.5 cm transversely. There i s mild rectal and sigmoid wall thickening. There is distention of the bladder. There is no pathologic adenopathy. There is a persistent moderate left hip joint effusion with mild chronic subluxation of the left hip. There is a large cutaneous ulceration at the level of the right hip. The ulcer extends to the level o f the joint space. The patient appears be status post resection of the right femoral head. There is e xtensive heterotopic ossification with multiple bony fragments. There is chronic cortical destruction involving the posterior aspect of the lower sacrum. IMPRESSION: 1. Large cutaneous ulceration at the level of the posterior right hip. The ulceration extends to the level of the joint capsule. 2. Persistent moderate left hip joint effusion with mild chronic subluxation of the left hip. 3. 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 The findings remain similar to the preceding study. Chronic infection cannot be ex cluded given the depth of the decubitus ulceration. 4. Stable chronic cortical destruction involving the posterior aspect of the lower sacrum ACT 112: Negative or not required by law. Electronically signed by: Mike Marino M.D. 07/31/2019 1:10 PM
[2019-07-31] MEDS: PEPTAMEN 1.5 CAL 1,000 ML BAG PEG SCH (13:19)
[2019-07-31] MEDS: SODIUM BICARBONATE 8.4% 75 MEQ in SODIUM CHLORIDE 0.45 % 1,000 ML IV SCH ×2 (13:19→21:43)
[2019-07-31] MEDS: OXYCODONE HCL IR 5 MG TAB (IMMEDIATE RELEASE) PEG SCH ×2 (13:24→18:45)
--- NOTE | 2019-07-31 14:15 | Wound Consultation ---
Date of Consultation July 31, 2019 Assessment & Plan (1) Decubitus ulcer: This is a 74-year-old male with altered mental status, schizoid personality and numerous contractures who was admitted with altered mental status and found to have numerous acute and chronic decubitus ulcers. No debridement was required today. Wound cultures were obtained from left hip, right hip and groin. Recommend getting CT scan of the pelvis to rule out osteomyelitis or necrotizing infection. Continue antibiotics. Wounds will be dressed with Aquacel Ag. This can be changed every other day and as needed. Thank you for allowing me to participate in the care of this patient. Please not hesitate to call with any questions. History of Present Illness Reason for Consultation: Multiple wounds Attending Physician: Areli Reyes MD History of Present Illness This is a 74-year-old male with history of dementia admitted with altered mental status. He is unable to help with history. On there is obtained from the record. He has a history of hypothyroidism, GERD, schizoid personality disorder, dyslipidemia, anemia, osteomyelitis, chronic indwelling Childs, hypertension and CAD. Admission patient was found to have numerous wounds. He has significant contractures. Allergies Allergy/AdvReac Type Severity Reaction Status Date / Time iodine Allergy Unknown Unknown Verified 07/31/19 03:49 onion AdvReac Intermediate vomitting Verified 07/31/19 03:49 Home Medications Home Medications Medication Instructions Recorded Confirmed Type B [id number] 1 tab FEEDING TUBE DAILY 03/14/19 07/31/19 History Eliquis 5 mg PO BID 03/14/19 07/31/19 History acetaminophen [Tylenol] 650 mg PO Q4 PRN MDD 3gm/24hr 03/14/19 07/31/19 History baclofen 5 mg PO TID 03/14/19 07/31/19 History bisacodyl [Dulcolax (bisacodyl)] 10 mg ME UD PRN 03/14/19 07/31/19 History divalproex 500 mg PO BID 03/14/19 07/31/19 History docusate sodium 100 mg PO BID 03/14/19 07/31/19 History fentanyl [Duragesic] 1 patch TOPICAL [id number] 03/14/19 07/31/19 History folic acid 1 mg PO DAILY 03/14/19 07/31/19 History levothyroxine [Synthroid] 25 mcg PO DAILY 03/14/19 07/31/19 History melatonin 3 mg PO HS 03/14/19 07/31/19 History metoprolol succinate [Toprol XL] 25 mg PO UD 03/14/19 07/31/19 History oxycodone [Roxicodone] 5 mg PO Q6H 03/14/19 07/31/19 History thiamine HCl (vitamin B1) 100 mg PO DAILY 03/14/19 07/31/19 History tramadol [Ultram] 50 mg PO Q6 PRN 03/14/19 07/31/19 History cephalexin [Keflex] 500 mg FEEDING TUBE QID 07/29/19 07/31/19 History magnesium hydroxide [Milk of 30 ml FEEDING TUBE DAILY PRN 07/29/19 07/31/19 History Magnesia] risperidone [Risperdal] 0.5 mg FEEDING TUBE BID 07/29/19 07/31/19 History Saccharomyces boulardii 250 mg PO BID 07/31/19 07/31/19 History acetaminophen 650 mg PO Q6H PRN MDD 3gm/24hr 07/31/19 07/31/19 History esomeprazole magnesium [Nexium 40 mg PO DAILY 07/31/19 07/31/19 History Packet] ferrous sulfate 325 mg FEEDING TUBE BID 07/31/19 07/31/19 History multivit,stress formula-zinc 1 tab PO DAILY 07/31/19 07/31/19 History [Stress Formula with Zinc] nut.tx. metabolic disorder,soy 1 ea FEEDING TUBE UD 07/31/19 07/31/19 History [Perative] protein supplement 1 ea PO BID 07/31/19 07/31/19 History Patient History Medical History Anemia (Chronic) Anxiety (Chronic) Bacteremia Chronic pain (Chronic) Chronic systolic CHF (congestive heart failure) (Chronic) Coronary artery disease (Chronic) s/p MD 2007 Decubitus ulcer (Chronic) multiple, chronic Depression Dyslipidemia (Chronic) Esophagitis Childs catheter in place GERD (gastroesophageal reflux disease) (Chronic) History of Clostridium difficile colitis (Chronic) History of DVT (deep vein thrombosis) (Chronic) LL2017 History of electroconvulsive therapy (Chronic) History of ESBL E. 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 Childs cath. Wound infection (Acute) Pseudomonas PEG site October 2018 Surgical History History of appendectomy (Chronic) S/P PICC central line placement Status post insertion of percutaneous endoscopic gastrostomy (PEG) tube (Chronic) Sep 2018 Family History Other Family history non-contributory Social History Preferred Language: French Communication Ability: Impaired Athletic Gear Custodian Required: No Beliefs That Will Affect Care: None marital status: Unknown Current Living Situation: Group Home Current Living Situation Comment: [facility] Feels Safe at Home: Declines to Answer Smoking Status: Unknown if ever smoked Review of Systems Review of Systems: Unobtainable due to cognitive status Physical Exam Skin: Wound #1 left lateral hip measuring 4 x 3.2 x 0.6 cm. This wound probes to bone. Wound is covered with fibrinous slough. Periwound is intact intact without inflammation. There is foul odor. Wound #2 left medial lower leg measuring 1.5 x 2 x 0.2 cm. Wound is covered with fibrin and slough. Periwound is intact without inflammation. There is moderate drainage. Wound #3, medial sacrum wound measuring 5.8 x 5.8 x 1 cm. Wound is covered with fibrin and slough. Periwound is intact with mild erythema. There is moderate drainage. Wound #4, right lateral hip measuring 1.5 x 4 x 3.2 cm. Wound is covered with fibrin and slough. Periwound is intact with mild erythema there is foul odor. Wound #5, right lower lateral leg measuring 1.6 x 1.5 cm. Wound is covered with fibrin and slough. There is moderate drainage no foul odor. Wound #6, right lower medial leg measuring 1.8 x 2 cm. Wound is covered with fibrin and slough. Periwound is intact. There is moderate drainage no foul odor. Wound #7, right medial ankle measuring 2.2 x 2.3 x 0.1 cm. Wound is covered with fibrin and slough. Periwound is intact. There is moderate drainage no foul odor. Wound #8 right medial foot measuring 1.5 x 2.5 cm. Wound is covered with fibrinous slough. Periwound is intact. There is moderate drainage no foul odor. Wound #9 right posterior back measuring 5 x 5 cm. Wound is covered with fibrin and slough. Periwound is intact. There is moderate drainage and no foul odor. Neurologic: awake and + confused Psychiatric: Orientation: oriented to person and cooperative Results & Data Vital Signs (Past 12 Hours) Vital Signs Temp Pulse Pulse Resp BP BP Pulse Ox 07/31/19 12:21 94 H 110/64 07/31/19 11:00 36.6 C 89 18 121/63 97 07/31/19 10:00 96 H 07/31/19 07:17 36.5 C 107 H 22 169/84 H 97 07/31/19 06:59 36.4 C L 96 H 20 126/77 97 07/31/19 06:00 36.5 C 107 H 22 169/84 H 97 07/31/19 05:14 72 20 108/60 99 07/31/19 03:50 75 18 113/61 98 07/31/19 02:47 99 H 99 07/31/19 02:25 36.1 C L 95 H 18 124/72 99 PG Care Time/CCT Total # of Minutes Spent Total Time Spent with Patient: Total time spent is greater than 50% in coordination of care (as documented) at patient's floor/unit and/or counseling patient:
[2019-07-31 14:16] LABS: BUN Creatinine Ratio 28.3 (10-20); Est GFR (African American) 14.2; Est GFR (Non-African American) 12.2; Potassium 5.6 mmol/L (3.5-5.1)
[2019-07-31] MEDS ORDERED: INSULIN HUMAN REGULAR PER UNIT 5 UNITS in SYRINGE 4.95 ML IV ONE (15:30)
[2019-07-31] MEDS ORDERED: DEXTROSE 50% 50 ML SYRINGE IV ONE (15:30)
[2019-07-31] MEDS: PIPERACILLIN/TAZOBACTAM 3.375 GM in DEXTROSE 5% 100 ML IV SCH (16:44)
[2019-07-31 20:57] LABS: BUN Creatinine Ratio 28.9 (10-20); Calcium 8.1 mg/dl (8.5-10.1); Creatinine Clr Calc Pharmacy 13.6 ml/min; Est GFR (African American) 13.6; Est GFR (Non-African American) 11.7; Potassium 5.3 mmol/L (3.5-5.1)
[2019-08-01] MEDS: OXYCODONE HCL IR 5 MG TAB (IMMEDIATE RELEASE) PEG SCH ×4 (00:37→17:48)
[2019-08-01] MEDS: CHECK FENTANYL PATCH PLACEMENT SCH ×3 (00:38→15:18)
[2019-08-01] MEDS: PIPERACILLIN/TAZOBACTAM 3.375 GM in DEXTROSE 5% 100 ML IV SCH (04:08)
[2019-08-01] MEDS: SODIUM BICARBONATE 8.4% 75 MEQ in SODIUM CHLORIDE 0.45 % 1,000 ML IV SCH ×4 (04:08→17:48)
[2019-08-01 05:51] LABS: Basophils # (auto) 0.01 K/uL (0-0.2); Basophils % (auto) 0.1 %; Eosinophils # (auto) 0.05 K/uL (0-0.5); Eosinophils % (auto) 0.7 %; Hematocrit (blood only) 23.8 % (42-52); Immature Granulocytes # (auto) 0.01 K/uL (0.00-0.02); Immature Granulocytes % (auto) 0.1 %; Lymphocytes # (auto) 0.66 K/uL (1.2-3.4); Lymphocytes % (auto) 9.7 %; Mean Corpuscular Hemoglobin 28.9 pg (25-34); Mean Corpuscular Hgb Conc 33.6 g/dL (32-36); Mean Corpuscular Volume 85.9 fL (80-100); Mean Platelet Volume 9.6 fL (7.4-10.4); Monocytes # (auto) 0.69 K/uL (0.11-0.59); Monocytes % (auto) 10.2 %; Neutrophils # (auto) 5.36 K/uL (1.4-6.5); Neutrophils % (auto) 79.2 %; Platelet Count 291 K/uL (130-400); RDW Coefficient of Variation 15.8 % (11.5-14.5); RDW Standard Deviation 50.2 fL (36.4-46.3); Red Blood Count 2.77 M/uL (4.7-6.1); White Blood Count 6.78 K/uL (4.8-10.8)
[2019-08-01] MEDS: LEVOTHYROXINE SODIUM 25 MCG TABLET PEG SCH (06:15)
[2019-08-01 06:27] LABS: BUN Creatinine Ratio 29.3 (10-20); Calcium 7.5 mg/dl (8.5-10.1); Creatinine Clr Calc Pharmacy 14.5 ml/min; Est GFR (African American) 14.7; Est GFR (Non-African American) 12.7; Magnesium 2.6 mg/dl (1.8-2.4); Potassium 4.5 mmol/L (3.5-5.1)
[2019-08-01] MEDS: DOCUSATE SODIUM SYRUP 100 MG/10 ML UDC PEG SCH ×2 (08:34→20:46)
[2019-08-01] MEDS: APIXABAN 5 MG TABLET PO SCH ×2 (08:35→20:47)
[2019-08-01] MEDS: LANSOPRAZOLE 30 MG SOLTAB PEG SCH (08:35)
[2019-08-01] MEDS: BACLOFEN 10 MG TAB PO SCH ×3 (08:35→20:46)
[2019-08-01] MEDS: FOLIC ACID 1 MG TAB PO SCH (08:35)
[2019-08-01] MEDS: METOPROLOL TARTRATE 25 MG TAB PO SCH ×2 (08:35→20:46)
[2019-08-01] MEDS: fentaNYL 25 MCG/HR TDSY TD SCH (08:35)
[2019-08-01] MEDS: CEROVITE ADV FORMULA TAB PO SCH (08:35)
[2019-08-01] MEDS: FERROUS SULFATE 325 MG/7.4 ML UDP PEG SCH ×2 (08:35→20:47)
[2019-08-01] MEDS: SACCHAROMYCES BOULARDII 250 MG CAP PO SCH ×2 (08:35→20:46)
[2019-08-01] MEDS: DIVALPROEX SODIUM SPRINKLE 125 MG CAP PEG SCH ×2 (08:35→20:46)
[2019-08-01] MEDS: PROSOURCE NO CARB 30 ML/PKT PEG SCH ×2 (08:36→20:46)
[2019-08-01] MEDS: THIAMINE HCL 100 MG TAB PEG SCH (08:36)
[2019-08-01] MEDS: risperiDONE 0.5 MG TABLET PEG SCH ×2 (08:36→20:46)
[2019-08-01] MEDS: VITAMIN B COMPLEX TAB PO SCH (08:36)
--- NOTE | 2019-08-01 09:41 | Nephrology Progress Note ---
Date of Service August 01, 2019 Assessment & Plan (1) Acute renal failure: obstructive uropathy which is at least partly chronic from which he may or may not recover; other considerations include prerenal versus ATN presenting creatinine 4.45; baseline 0.8-1.1; already on slight uptrend earlier this month (1.3 on 07/11); creatinine barely changed since admission but other electrolyte issues improved; some issues w/ felix (had to be replaced late last evening, so no UOP basically before 2200 -recheck bmp 1600 ordered>> some improvement to creat 3.8, chemistries ok for most part -cont to avoid nephrotoxins and to treat uti ->>with BL hydroureteronephrosis on CT and bladder distension--voiding well now -will order bladder scan q shift for decreased felix output -would consult urology >> doubt any intervention at this time but may need to consider prostate intervention or other measures; would ask them to compare current hydroureteronephrosis and bladder expansion to findings for example on [facility] -no urgent indication for dialysis but cannot rule out need; he is a very poor candidate for dialysis (2) Acute hyperkalemia: on presentation which has improved w/ medical mgt -changed NS to 1/2 NS w/ 75 mEq / L sodium bicarb at 150 ml/hr >> will increase to 250 mL /hr on daylight ->>pls ensure he has low k/dialysis appropriate tube feeds; already sent communication order Subjective ROS limited d/t mental status; denies pain; denies sob or nausea. Review of Systems Review of Systems: Unobtainable due to cognitive status Physical Exam Constitutional: well developed, + thin and + frail appearing; not in distress (today less anxious, MODOC) Eyes: EOM intact bilaterally ENMT: Ears: + hearing impairment; no external ear abnormality Nose: no external nose abnormality Mouth: + dry oral mucous membranes Neck: no nuchal rigidity Respiratory: normal respiratory effort Auscultation: lungs clear to auscultation bilaterally and + diminished lung sounds Cardiovascular: RRR, no murmur, no edema Gastrointestinal (Abdomen): Inspection/Auscultation: normal bowel sounds Percussion/Palpation: abdomen soft; abdomen nontender Musculoskeletal: Extremities: strength 5/5 throughout Skin: no rashes, warm and dry + ulcer (L hip w/ dressing, drainage; 6 cm on photo) Psychiatric: Orientation: alert and oriented to person Eye Contact: + fair eye contact Speech: + loud speech Affect: + anxious affect Insight: + limited insight Judgement: + limited judgement Genitourinary: felix w/ ample urine Results & Data Vital Signs (Past 12 Hours) Vital Signs Temp Pulse Pulse Resp BP Pulse Ox 08/01/19 08:00 80 08/01/19 07:24 72 08/01/19 07:17 36.6 C 91 H 20 119/81 97 08/01/19 04:16 36.2 C L 84 20 126/74 97 07/31/19 23:50 36.4 C L 90 18 100/62 97 Laboratory Results 08/01/19 05:21 08/01/19 05:21 (1) Acute renal failure Acute renal failure type: unspecified Qualified Code(s): N17.9 - Acute kidney failure, unspecified
[2019-08-01] MEDS ORDERED: [UNRECOGNIZED DRUG - OTHER] PRN (09:52)
[2019-08-01] MEDS: PEPTAMEN 1.5 CAL 1,000 ML BAG PEG SCH (12:24)
[2019-08-01] MEDS: CEFTOLOZANE/TAZOBACTAM 375 MG in DEXTROSE 5% 100 ML IV SCH ×2 (12:25→20:45)
--- NOTE | 2019-08-01 12:31 | Hospitalist Progress Note ---
Date of Service August 01, 2019 Assessment & Plan (1) Change in mental status: Likely secondary to possible sepsis due to complicated UTI with Childs catheter and multiple decubiti ulcers Was admitted 12 from [facility] with possible change in mental status Does not have any acute distress and is not communicating verbally this morning Doubt any stroke (2) Acute renal failure: Creatinine has been very high at 4.45 from 1.27 on sixth of this month Likely secondary to severe dehydration Appreciate nephrology input and recommendation Has been on half normal saline with bicarb drip as per nephrology Will monitor PRP Renal function has been improving Bilateral hydronephrosis Likely complicating acute renal failure Has indwelling Childs catheter Will consult urology for further management (3) Hyperkalemia: Secondary to acute renal impairment Has been on bicarb drip We will monitor-potassium is normalized (4) Chronic indwelling Childs catheter: Possible Sepsis secondary to UTI due to indwelling Childs catheter Urine culture -Streptococcus species, sensitivity is pending Blood culture -negative (5) Severe protein-calorie malnutrition: Continue PEG tube feeding (6) Decubitus ulcer: Pressure ulcers of medial sacrum, stage 3; right lateral hip, stage 4; unstageable right scapular ulcer, left medial lower leg deep tissue injury, likely right lower lateral leg pressure injury; unstageable right medial foot and ankle pressure ulcer; and stage 4 pressure ulcer to left lateral hip Has significant sacral decubiti, stage IV as in the picture Will get CT of the pelvis to rule out any osteomyelitis and/or hip joint effusion Appreciate wound care input and recommendation Has been started on intravenous daptomycin and Zosyn Blood cultures negative Wound culture gram-negative bacilli-sensitivities pending Antibiotics have been changed to daptomycin and Ceftozane/tazobactam (7) Schizoid personality disorder: No acute symptoms (8) Hypothyroidism: Continue replacement (9) Chronic systolic CHF (congestive heart failure): No acute CHF Has been getting intravenous fluid and will monitor for any fluid overload (10) HTN (hypertension): We will continue current medication (11) Anxiety: No acute issue Subjective 07/31 The patient was seen and examined in medical floor He is a 74-year-old male with significant past medical history of hypertension, chronic systolic CHF, CAD, severe malnutrition, DVT with status post IVC filter with history of recurrent UTI and sepsis, schizoaffective disorder and bedbound with sacral decubiti was admitted with change in mental status from [facility] yesterday Remains stable but not being communicating this morning 08/01 The patient was seen and examined in medical floor She is alert and awake today but remains confused Denies any acute pain Review of Systems Review of Systems: Patient is not communicative this morning Physical Exam Physical Exam: Lying in bed comfortably Constitutional: + ill appearing, + thin and + cachectic Eyes: PERRL, conjunctivae normal, anicteric sclerae ENMT: external ear and nose normal, oropharynx normal Neck: trachea midline, no thyromegaly Respiratory: normal respiratory effort Auscultation: + diminished lung sounds Cardiovascular: Rate/Rhythm: regular rate and regular rhythm Heart Sounds: no murmur Gastrointestinal (Abdomen): Inspection/Auscultation: + abdomen abnormal to inspection and + abnormal bowel sounds (Bowel sounds sluggish) Percussion/Palpation: abdomen nontender Musculoskeletal: Has flexural deformity involving the lower extremities Skin: Decubiti ulcers as documented in wound care note Lymphatic: no cervical or axillary lymphadenopathy Results & Data Vital Signs (Past 12 Hours) Vital Signs Temp Pulse Pulse Resp BP Pulse Ox 08/01/19 11:32 36.7 C 75 20 119/58 L 100 08/01/19 08:00 80 08/01/19 07:24 72 08/01/19 07:17 36.6 C 91 H 20 119/81 97 08/01/19 04:16 36.2 C L 84 20 126/74 97 Laboratory Results Short CBC 08/01/19 Range/Units 05:21 WBC 6.78 (4.8-10.8) K/uL Hgb 8.0 L (14.0-18.0) g/dL Hct 23.8 L (42-52) % Plt Count 291 (130-400) K/uL BMP 07/31/19 07/31/19 08/01/19 13:16 20:11 05:21 Sodium 136 135 L 137 Potassium 5.6 H 5.3 H 4.5 D Chloride 104 102 103 Carbon Dioxide 20 L 23 24 BUN 126 H 133 H 126 H Creatinine 4.45 H 4.60 H* 4.31 H Glucose 112 H 96 89 Calcium 8.0 L 8.1 L 7.5 L Medications Administered Current Inpatient Medications Acetaminophen (Tylenol) 650 mg PEG Q4H PRN PRN Reason: Pain or Fever Stop: 08/30/19 05:41 Apixaban (Eliquis) 5 mg PO BID [facility] Stop: 08/30/19 08:59 Last Admin: 08/01/19 08:35 Dose: 5 mg Documented by: Baclofen (Lioresal) 5 mg PO TID [facility] Stop: 08/30/19 08:59 Last Admin: 08/01/19 12:25 Dose: 5 mg Documented by: Bisacodyl (Dulcolax) 10 mg [place] UD PRN PRN Reason: 3RD DAY WITH NO BM Stop: 08/30/19 05:41 Divalproex Sodium (Depakote Sprinkle) 500 mg PEG BID [facility] Stop: 08/30/19 08:59 Last Admin: 08/01/19 08:35 Dose: 500 mg Documented by: Docusate Sodium (Colace) 100 mg PEG BID [facility] Stop: 08/30/19 10:59 Last Admin: 08/01/19 08:34 Dose: 100 mg Documented by: Enteral Nutritional Formula (Peptamen 1.5 Darly) 1,080 ml PEG TODAY@1100 DIOR; Protocol Stop: 08/30/19 10:59 Last Admin: 08/01/19 12:24 Dose: 1,000 ml Documented by: Fentanyl (Duragesic) 25 mcg TD Q72H [facility] Stop: 08/15/19 08:59 Last Admin: 08/01/19 08:35 Dose: 25 mcg Documented by: Ferrous Sulfate (Feosol) 325 mg PEG BID [facility] Stop: 08/30/19 10:59 Last Admin: 08/01/19 08:35 Dose: 325 mg Documented by: Folic Acid (Folvite) 1 mg PO DAILY [facility] Stop: 08/30/19 08:59 Last Admin: 08/01/19 08:35 Dose: 1 mg Documented by: Sodium Bicarbonate 75 meq/ (Sodium Chloride) 1,075 mls @ 250 mls/hr IV .Q4H18M [facility] Stop: 08/30/19 11:14 Last Admin: 08/01/19 12:24 Dose: 150 mls/hr Documented by: Daptomycin 425 mg/ Syringe 8.5 mls @ 4.25 mls/min IV Q48H [facility] Stop: 08/12/19 03:59 Ceftolozane/Tazobactam 375 mg/ (Dextrose) 102.85 mls @ 111.4 mls/hr IV Q8H [facility] Stop: 08/11/19 09:59 Last Admin: 08/01/19 12:25 Dose: 111.4 mls/hr Documented by: Lansoprazole (Prevacid) 30 mg PEG DAILY [facility] Stop: 08/31/19 08:59 Last Admin: 08/01/19 08:35 Dose: 30 mg Documented by: Levothyroxine Sodium (Synthroid) 25 mcg PEG DAILYBB [facility] Stop: 08/30/19 06:29 Last Admin: 08/01/19 06:15 Dose: 25 mcg Documented by: Magnesium Hydroxide (Milk Of Magnesia) 30 ml PEG DAILY PRN PRN Reason: Constipation Stop: 08/30/19 05:41 Metoprolol Tartrate (Lopressor) 12.5 mg PO BID [facility] Stop: 08/30/19 08:59 Last Admin: 08/01/19 08:35 Dose: 12.5 mg Documented by: Miscellaneous (Fentanyl Patch Remove & Waste) 1 ea N/A Q3D [facility] Stop: 08/31/19 08:58 Last Admin: 08/01/19 08:35 Dose: 1 ea Documented by: Miscellaneous (Fentanyl Patch Check Placement) 1 ea N/A QS [facility] Stop: 08/30/19 07:59 Last Admin: 08/01/19 08:34 Dose: 1 ea Documented by: Miscellaneous Information (Consult) 1 ea N/A UD PRN PRN Reason: Consult Stop: 08/30/19 05:52 Miscellaneous Information (Pharmacy Consult) 1 ea N/A UD PRN PRN Reason: Consult Stop: 08/31/19 09:51 Multivitamins/Minerals (Multivitamin W/ Minerals Tab) 1 tab PO DAILY [facility] Stop: 08/30/19 08:59 Last Admin: 08/01/19 08:35 Dose: 1 tab Documented by: Nitroglycerin (Nitrostat) 0.4 mg SL UD PRN PRN Reason: Chest Pain Stop: 08/30/19 05:41 Nutritional Formula (Prosource No Carb) 30 ml PEG BID [facility] Stop: 08/30/19 10:59 Last Admin: 08/01/19 08:36 Dose: 30 ml Documented by: Ondansetron HCl (Zofran) 4 mg IV Q6H PRN PRN Reason: Nausea Stop: 08/30/19 05:41 Oxycodone HCl (Roxicodone Immediate Rel) 5 mg PEG Q6 [facility] Stop: 08/14/19 06:14 Last Admin: 08/01/19 12:25 Dose: 5 mg Documented by: Polyethylene Glycol (Miralax Powder Packet) 17 gm PEG DAILY PRN PRN Reason: Constipation Stop: 08/30/19 05:41 Risperidone (Risperdal) 0.5 mg PEG BID [facility] Stop: 08/30/19 08:59 Last Admin: 08/01/19 08:36 Dose: 0.5 mg Documented by: Saccharomyces Boulardii (Florastor) 250 mg PO BID [facility] Stop: 08/30/19 08:59 Last Admin: 08/01/19 08:35 Dose: 250 mg Documented by: Thiamine HCl (Vitamin B-1) 100 mg PEG DAILY [facility] Stop: 08/30/19 08:59 Last Admin: 08/01/19 08:36 Dose: 100 mg Documented by: Tramadol HCl (Ultram) 50 mg PO Q6 PRN PRN Reason: PAIN 4-10 Stop: 08/30/19 05:41 Vitamin B Complex (Vitamin B Complex) 1 tab PO DAILY [facility] Stop: 08/30/19 08:59 Last Admin: 08/01/19 08:36 Dose: 1 tab Documented by: (1) Acute renal failure Acute renal failure type: unspecified Qualified Code(s): N17.9 - Acute kidney failure, unspecified (2) Hypothyroidism Hypothyroidism type: other Qualified Code(s): E03.8 - Other specified hypothyroidism (3) HTN (hypertension) Hypertension type: essential hypertension Qualified Code(s): I10 - Essential (primary) hypertension
[2019-08-01 17:33] LABS: BUN Creatinine Ratio 29.9 (10-20); Calcium 7.8 mg/dl (8.5-10.1); Est GFR (African American) 17.4; Potassium 3.9 mmol/L (3.5-5.1)
[2019-08-02] MEDS: SODIUM BICARBONATE 8.4% 75 MEQ in SODIUM CHLORIDE 0.45 % 1,000 ML IV SCH ×3 (00:10→07:38)
[2019-08-02] MEDS: OXYCODONE HCL IR 5 MG TAB (IMMEDIATE RELEASE) PEG SCH ×5 (00:10→23:53)
[2019-08-02] MEDS: CHECK FENTANYL PATCH PLACEMENT SCH ×4 (00:10→23:54)
[2019-08-02] MEDS: CEFTOLOZANE/TAZOBACTAM 375 MG in DEXTROSE 5% 100 ML IV SCH ×3 (04:56→20:15)
[2019-08-02] MEDS: DAPTOmycin 425 MG in SYRINGE 0 ML IV SCH (04:57)
[2019-08-02] MEDS: LEVOTHYROXINE SODIUM 25 MCG TABLET PEG SCH (06:19)
[2019-08-02] MEDS: FERROUS SULFATE 325 MG/7.4 ML UDP PEG SCH ×2 (07:38→21:43)
[2019-08-02] MEDS: DIVALPROEX SODIUM SPRINKLE 125 MG CAP PEG SCH ×2 (07:38→21:31)
[2019-08-02] MEDS: DOCUSATE SODIUM SYRUP 100 MG/10 ML UDC PEG SCH ×2 (07:38→21:33)
[2019-08-02] MEDS: APIXABAN 5 MG TABLET PO SCH ×2 (07:38→21:26)
[2019-08-02] MEDS: SACCHAROMYCES BOULARDII 250 MG CAP PO SCH ×2 (07:38→21:29)
[2019-08-02] MEDS: BACLOFEN 10 MG TAB PO SCH ×3 (07:39→21:26)
[2019-08-02] MEDS: CEROVITE ADV FORMULA TAB PO SCH (07:39)
[2019-08-02] MEDS: THIAMINE HCL 100 MG TAB PEG SCH (07:39)
[2019-08-02] MEDS: VITAMIN B COMPLEX TAB PO SCH (07:39)
[2019-08-02] MEDS: LANSOPRAZOLE 30 MG SOLTAB PEG SCH (07:39)
[2019-08-02] MEDS: METOPROLOL TARTRATE 25 MG TAB PO SCH ×2 (07:39→21:34)
[2019-08-02] MEDS: PROSOURCE NO CARB 30 ML/PKT PEG SCH ×2 (07:39→21:32)
[2019-08-02] MEDS: FOLIC ACID 1 MG TAB PO SCH (07:39)
[2019-08-02] MEDS: risperiDONE 0.5 MG TABLET PEG SCH ×2 (07:39→21:33)
[2019-08-02 09:26] LABS: Basophils # (auto) 0.02 K/uL (0-0.2); Basophils % (auto) 0.3 %; Eosinophils # (auto) 0.15 K/uL (0-0.5); Eosinophils % (auto) 2.1 %; Hemoglobin 8.3 g/dL (14.0-18.0); Immature Granulocytes # (auto) 0.02 K/uL (0.00-0.02); Immature Granulocytes % (auto) 0.3 %; Lymphocytes # (auto) 0.97 K/uL (1.2-3.4); Lymphocytes % (auto) 13.4 %; Mean Corpuscular Hemoglobin 29.1 pg (25-34); Mean Corpuscular Hgb Conc 33.2 g/dL (32-36); Mean Corpuscular Volume 87.7 fL (80-100); Mean Platelet Volume 9.4 fL (7.4-10.4); Monocytes # (auto) 0.91 K/uL (0.11-0.59); Monocytes % (auto) 12.6 %; Neutrophils # (auto) 5.18 K/uL (1.4-6.5); Neutrophils % (auto) 71.3 %; Platelet Count 318 K/uL (130-400); RDW Coefficient of Variation 16.1 % (11.5-14.5); Red Blood Count 2.85 M/uL (4.7-6.1); White Blood Count 7.25 K/uL (4.8-10.8)
[2019-08-02 10:02] LABS: BUN Creatinine Ratio 34.4 (10-20); Calcium 7.7 mg/dl (8.5-10.1); Creatinine Clr Calc Pharmacy 22.3 ml/min; Est GFR (African American) 24.1; Est GFR (Non-African American) 20.8; Potassium 3.6 mmol/L (3.5-5.1)
--- NOTE | 2019-08-02 10:50 | Nephrology Progress Note ---
Date of Service August 02, 2019 Assessment & Plan (1) Acute renal failure: obstructive uropathy which is at least partly chronic from which he may or may not recover; other considerations include prerenal versus ATN presenting creatinine 4.45; baseline 0.8-1.1; already on slight uptrend earlier this month (1.3 on 07/11); creatinine improving 3.7 from 4.3 yesterday -Monitor renal function with daily BMP -cont to avoid nephrotoxins and to treat uti ->>with BL hydroureteronephrosis on CT and bladder distension--voiding well now -would consult urology >> doubt any intervention at this time but may need to consider prostate intervention or other measures; would ask them to compare current hydroureteronephrosis and bladder expansion to findings for example on [facility] -no urgent indication for dialysis but cannot rule out need; he is a very poor candidate for dialysis (2) Acute hyperkalemia: on presentation which has improved w/ medical mgt -Change fluids to Ringer's lactate at some rate. Subjective Unable to get history due to mental status. Creatinine is downtrending to 3.7 today. Review of Systems Review of Systems: Unobtainable due to cognitive status Physical Exam Physical Exam: General exam: Appears comfortable, no acute distress HEENT: Pupils are equal and reactive to light Neck: No JVD, neck is supple trachea is midline Respiratory system: Clear breath sounds bilaterally. Gastrointestinal: Abdomen is soft, non distended, non tender, bowel sounds are present CVS: Regular rate and rhythm. No murmurs, rubs or gallops Musculoskeletal: No joint or muscle tenderness Extremities: Non tender, no edema, peripheral pulses are present Neuro: Flexion contractures Skin: No rashes Results & Data Vital Signs (Past 12 Hours) Vital Signs Temp Pulse Pulse Resp BP Pulse Ox 08/02/19 08:00 82 08/02/19 07:14 36.8 C 82 18 127/68 92 08/02/19 03:52 36.7 C 64 18 106/64 94 08/01/19 23:32 36.9 C 77 20 131/70 97 Laboratory Results Laboratory Results - last 24 hr 08/01/19 08/02/19 08/02/19 16:48 09:15 09:15 WBC 7.25 RBC 2.85 L Hgb 8.3 L Hct 25.0 L MCV 87.7 MCH 29.1 MCHC 33.2 RDW Std Deviation 52.0 H RDW Coeff of Lucila 16.1 H Plt Count 318 MPV 9.4 Immature Gran % (Auto) 0.3 Neut % (Auto) 71.3 Lymph % (Auto) 13.4 [place] % (Auto) 12.6 Eos % (Auto) 2.1 Baso % (Auto) 0.3 Immature Gran # (Auto) 0.02 Neut # (Auto) 5.18 Lymph # (Auto) 0.97 L [place] # (Auto) 0.91 H Eos # (Auto) 0.15 Baso # (Auto) 0.02 Sodium 140 144 Potassium 3.9 3.6 Chloride 104 105 Carbon Dioxide 28 31 Anion Gap 8.0 7.0 BUN 112 H 99 H Creatinine 3.76 H D 2.87 H D Est Cr Clr Drug Dosing 16.0 22.3 Est GFR ( Amer) 17.4 24.1 Est GFR (Non-Af Amer) 15.0 20.8 BUN/Creatinine Ratio 29.9 H 34.4 H Glucose 128 H 139 H Calcium 7.8 L 7.7 L (1) Acute renal failure Acute renal failure type: unspecified Qualified Code(s): N17.9 - Acute kidney failure, unspecified
[2019-08-02] MEDS: LACTATED RINGER'S 1,000 ML IV SCH ×2 (11:43→23:51)
[2019-08-02] MEDS: PEPTAMEN 1.5 CAL 1,000 ML BAG PEG SCH (11:43)
--- NOTE | 2019-08-02 14:43 | Hospitalist Progress Note ---
Date of Service August 02, 2019 Assessment & Plan (1) Change in mental status: Likely secondary to possible sepsis due to complicated UTI with Childs catheter and multiple decubiti ulcers Was admitted 12 from [facility] with possible change in mental status Does not have any acute distress and is not communicating verbally this morning Doubt any stroke Clinically much better today Communicating at his baseline (2) Acute renal failure: Creatinine has been very high at 4.45 from 1.27 on sixth of this month Likely secondary to severe dehydration Appreciate nephrology input and recommendation Has been on half normal saline with bicarb drip as per nephrology Will monitor PRP Renal function has been improving Bilateral hydronephrosis Likely complicating acute renal failure Has indwelling Childs catheter Will consult urology for further management Discussed with urologist and the consult canceled Since he has been making out urine normally through the Childs there is no need to do any intervention by the urologist at this time Will have an outpatient follow-up appointment (3) Hyperkalemia: Secondary to acute renal impairment Has been on bicarb drip We will monitor-potassium is normalized (4) Chronic indwelling Childs catheter: Possible Sepsis secondary to UTI due to indwelling Childs catheter Urine culture -Streptococcus species, sensitivity is pending Blood culture -negative (5) Severe protein-calorie malnutrition: Continue PEG tube feeding (6) Decubitus ulcer: Pressure ulcers of medial sacrum, stage 3; right lateral hip, stage 4; unstageable right scapular ulcer, left medial lower leg deep tissue injury, likely right lower lateral leg pressure injury; unstageable right medial foot and ankle pressure ulcer; and stage 4 pressure ulcer to left lateral hip Has significant sacral decubiti, stage IV as in the picture Will get CT of the pelvis to rule out any osteomyelitis and/or hip joint effusion Appreciate wound care input and recommendation Has been started on intravenous daptomycin and Zosyn Blood cultures negative Wound culture gram-negative bacilli-sensitivities pending Antibiotics have been changed to daptomycin and Ceftozane/tazobactam (7) Schizoid personality disorder: No acute symptoms (8) Hypothyroidism: Continue replacement (9) Chronic systolic CHF (congestive heart failure): No acute CHF Has been getting intravenous fluid and will monitor for any fluid overload (10) HTN (hypertension): We will continue current medication (11) Anxiety: No acute issue Subjective 07/31 The patient was seen and examined in medical floor He is a 74-year-old male with significant past medical history of hypertension, chronic systolic CHF, CAD, severe malnutrition, DVT with status post IVC filter with history of recurrent UTI and sepsis, schizoaffective disorder and bedbound with sacral decubiti was admitted with change in mental status from [facility] yesterday Remains stable but not being communicating this morning 08/01 The patient was seen and examined in medical floor She is alert and awake today but remains confused Denies any acute pain 08/02 The patient was seen and examined in telemetry unit He looks much better today and communicates almost normal, at his baseline Denies any acute symptoms Review of Systems Review of Systems: All systems reviewed and are unremarkable except as noted below Musculoskeletal: Has flexural deformities involving the lower and upper extremities Integumentary: Extensive decubiti ulcers involving the sacrum and adjoining areas Physical Exam Physical Exam: Lying in bed without any acute symptoms Constitutional: + ill appearing, + thin and + cachectic Eyes: PERRL, conjunctivae normal, anicteric sclerae ENMT: external ear and nose normal, oropharynx normal Neck: trachea midline, no thyromegaly Respiratory: normal respiratory effort Auscultation: + diminished lung sounds Cardiovascular: Rate/Rhythm: regular rate and regular rhythm Heart Sounds: no murmur Gastrointestinal (Abdomen): Inspection/Auscultation: + abdomen abnormal to inspection and + abnormal bowel sounds (Bowel sounds sluggish) Percussion/Palpation: abdomen nontender Musculoskeletal: Flexor deformities of the extremities with decubiti ulcers Lymphatic: no cervical or axillary lymphadenopathy Results & Data Vital Signs (Past 12 Hours) Vital Signs Temp Pulse Pulse Resp BP Pulse Ox 08/02/19 11:21 36.3 C L 76 16 151/67 H 92 08/02/19 08:00 82 08/02/19 07:14 36.8 C 82 18 127/68 92 08/02/19 03:52 36.7 C 64 18 106/64 94 Laboratory Results Short CBC 08/02/19 Range/Units 09:15 WBC 7.25 (4.8-10.8) K/uL Hgb 8.3 L (14.0-18.0) g/dL Hct 25.0 L (42-52) % Plt Count 318 (130-400) K/uL BMP 08/01/19 08/02/19 16:48 09:15 Sodium 140 144 Potassium 3.9 3.6 Chloride 104 105 Carbon Dioxide 28 31 BUN 112 H 99 H Creatinine 3.76 H D 2.87 H D Glucose 128 H 139 H Calcium 7.8 L 7.7 L Medications Administered Current Inpatient Medications Acetaminophen (Tylenol) 650 mg PEG Q4H PRN PRN Reason: Pain or Fever Stop: 08/30/19 05:41 Apixaban (Eliquis) 5 mg PO BID [facility] Stop: 08/30/19 08:59 Last Admin: 08/02/19 07:38 Dose: 5 mg Documented by: Baclofen (Lioresal) 5 mg PO TID [facility] Stop: 08/30/19 08:59 Last Admin: 08/02/19 11:43 Dose: 5 mg Documented by: Bisacodyl (Dulcolax) 10 mg [place] UD PRN PRN Reason: 3RD DAY WITH NO BM Stop: 08/30/19 05:41 Divalproex Sodium (Depakote Sprinkle) 500 mg PEG BID [facility] Stop: 08/30/19 08:59 Last Admin: 08/02/19 07:38 Dose: 500 mg Documented by: Docusate Sodium (Colace) 100 mg PEG BID [facility] Stop: 08/30/19 10:59 Last Admin: 08/02/19 07:38 Dose: 100 mg Documented by: Enteral Nutritional Formula (Peptamen 1.5 Daryl) 1,080 ml PEG TODAY@1100 DIOR; Protocol Stop: 08/30/19 10:59 Last Admin: 08/02/19 11:43 Dose: 1,080 ml Documented by: Fentanyl (Duragesic) 25 mcg TD Q72H [facility] Stop: 08/15/19 08:59 Last Admin: 08/01/19 08:35 Dose: 25 mcg Documented by: Ferrous Sulfate (Feosol) 325 mg PEG BID [facility] Stop: 08/30/19 10:59 Last Admin: 08/02/19 07:38 Dose: 325 mg Documented by: Folic Acid (Folvite) 1 mg PO DAILY [facility] Stop: 08/30/19 08:59 Last Admin: 08/02/19 07:39 Dose: 1 mg Documented by: Daptomycin 425 mg/ Syringe 8.5 mls @ 4.25 mls/min IV Q48H [facility] Stop: 08/12/19 03:59 Last Admin: 08/02/19 04:57 Dose: 4.25 mls/min Documented by: Ceftolozane/Tazobactam 375 mg/ (Dextrose) 102.85 mls @ 111.4 mls/hr IV Q8H [facility] Stop: 08/11/19 09:59 Last Infusion: 08/02/19 12:49 Dose: Infused Documented by: Lactated Ringer's (Lr) 1,000 mls @ 80 mls/hr IV .[id number] [facility] Stop: 09/01/19 10:59 Last Admin: 08/02/19 11:43 Dose: 80 mls/hr Documented by: Lansoprazole (Prevacid) 30 mg PEG DAILY [facility] Stop: 08/31/19 08:59 Last Admin: 08/02/19 07:39 Dose: 30 mg Documented by: Levothyroxine Sodium (Synthroid) 25 mcg PEG DAILYBB [facility] Stop: 08/30/19 06:29 Last Admin: 08/02/19 06:19 Dose: 25 mcg Documented by: Magnesium Hydroxide (Milk Of Magnesia) 30 ml PEG DAILY PRN PRN Reason: Constipation Stop: 08/30/19 05:41 Metoprolol Tartrate (Lopressor) 12.5 mg PO BID [facility] Stop: 08/30/19 08:59 Last Admin: 08/02/19 07:39 Dose: 12.5 mg Documented by: Miscellaneous (Fentanyl Patch Remove & Waste) 1 ea N/A Q3D [facility] Stop: 08/31/19 08:58 Last Admin: 08/01/19 08:35 Dose: 1 ea Documented by: Miscellaneous (Fentanyl Patch Check Placement) 1 ea N/A QS [facility] Stop: 08/30/19 07:59 Last Admin: 08/02/19 07:38 Dose: 1 ea Documented by: Miscellaneous Information (Consult) 1 ea N/A UD PRN PRN Reason: Consult Stop: 08/30/19 05:52 Miscellaneous Information (Pharmacy Consult) 1 ea N/A UD PRN PRN Reason: Consult Stop: 08/31/19 09:51 Multivitamins/Minerals (Multivitamin W/ Minerals Tab) 1 tab PO DAILY [facility] Stop: 08/30/19 08:59 Last Admin: 08/02/19 07:39 Dose: 1 tab Documented by: Nitroglycerin (Nitrostat) 0.4 mg SL UD PRN PRN Reason: Chest Pain Stop: 08/30/19 05:41 Nutritional Formula (Prosource No Carb) 30 ml PEG BID [facility] Stop: 08/30/19 10:59 Last Admin: 08/02/19 07:39 Dose: 30 ml Documented by: Ondansetron HCl (Zofran) 4 mg IV Q6H PRN PRN Reason: Nausea Stop: 08/30/19 05:41 Oxycodone HCl (Roxicodone Immediate Rel) 5 mg PEG Q6 [facility] Stop: 08/14/19 06:14 Last Admin: 08/02/19 11:43 Dose: 5 mg Documented by: Polyethylene Glycol (Miralax Powder Packet) 17 gm PEG DAILY PRN PRN Reason: Constipation Stop: 08/30/19 05:41 Risperidone (Risperdal) 0.5 mg PEG BID [facility] Stop: 08/30/19 08:59 Last Admin: 08/02/19 07:39 Dose: 0.5 mg Documented by: Saccharomyces Boulardii (Florastor) 250 mg PO BID [facility] Stop: 08/30/19 08:59 Last Admin: 08/02/19 07:38 Dose: 250 mg Documented by: Thiamine HCl (Vitamin B-1) 100 mg PEG DAILY [facility] Stop: 08/30/19 08:59 Last Admin: 08/02/19 07:39 Dose: 100 mg Documented by: Tramadol HCl (Ultram) 50 mg PO Q6 PRN PRN Reason: PAIN 4-10 Stop: 08/30/19 05:41 Vitamin B Complex (Vitamin B Complex) 1 tab PO DAILY [facility] Stop: 08/30/19 08:59 Last Admin: 08/02/19 07:39 Dose: 1 tab Documented by: (1) Acute renal failure Acute renal failure type: unspecified Qualified Code(s): N17.9 - Acute kidney failure, unspecified (2) Hypothyroidism Hypothyroidism type: other Qualified Code(s): E03.8 - Other specified hypot hyroidism (3) HTN (hypertension) Hypertension type: essential hypertension Qualified Code(s): I10 - Essential (primary) hypertension
[2019-08-03] MEDS: CEFTOLOZANE/TAZOBACTAM 375 MG in DEXTROSE 5% 100 ML IV SCH ×3 (03:36→19:42)
[2019-08-03] MEDS: LEVOTHYROXINE SODIUM 25 MCG TABLET PEG SCH (05:45)
[2019-08-03] MEDS: OXYCODONE HCL IR 5 MG TAB (IMMEDIATE RELEASE) PEG SCH ×3 (05:45→18:13)
[2019-08-03] MEDS: CHECK FENTANYL PATCH PLACEMENT SCH ×2 (09:03→16:36)
[2019-08-03] MEDS: FOLIC ACID 1 MG TAB PO SCH (09:03)
[2019-08-03] MEDS: FERROUS SULFATE 325 MG/7.4 ML UDP PEG SCH ×2 (09:03→21:20)
[2019-08-03] MEDS: THIAMINE HCL 100 MG TAB PEG SCH (09:03)
[2019-08-03] MEDS: DIVALPROEX SODIUM SPRINKLE 125 MG CAP PEG SCH ×2 (09:06→21:21)
[2019-08-03] MEDS: VITAMIN B COMPLEX TAB PO SCH (09:06)
[2019-08-03] MEDS: CEROVITE ADV FORMULA TAB PO SCH (09:07)
[2019-08-03] MEDS: DOCUSATE SODIUM SYRUP 100 MG/10 ML UDC PEG SCH ×2 (09:08→21:20)
[2019-08-03] MEDS: BACLOFEN 10 MG TAB PO SCH ×3 (09:08→21:23)
[2019-08-03] MEDS: METOPROLOL TARTRATE 25 MG TAB PO SCH ×2 (09:09→21:23)
[2019-08-03] MEDS: risperiDONE 0.5 MG TABLET PEG SCH ×2 (09:09→21:25)
[2019-08-03] MEDS: APIXABAN 5 MG TABLET PO SCH ×2 (09:10→21:22)
[2019-08-03] MEDS: SACCHAROMYCES BOULARDII 250 MG CAP PO SCH ×2 (09:10→21:22)
[2019-08-03] MEDS: LANSOPRAZOLE 30 MG SOLTAB PEG SCH (09:11)
[2019-08-03] MEDS: PROSOURCE NO CARB 30 ML/PKT PEG SCH ×2 (09:12→21:25)
--- NOTE | 2019-08-03 10:17 | Nephrology Progress Note ---
Date of Service August 03, 2019 Assessment & Plan (1) Acute renal failure: obstructive uropathy which is at least partly chronic from which he may or may not recover; other considerations include prerenal versus ATN presenting creatinine 4.45; baseline 0.8-1.1; already on slight uptrend earlier this month (1.3 on 07/11); creatinine improving 2.8 from 3.7 yesterday -Monitor renal function with daily BMP -cont to avoid nephrotoxins and to treat uti ->>with BL hydroureteronephrosis on CT and bladder distension--voiding well now -no urgent indication for dialysis but cannot rule out need; he is a very poor candidate for dialysis (2) Acute hyperkalemia: on presentation which has improved w/ medical mgt -Change fluids to Ringer's lactate at same rate. Subjective No new complaints. Patient does not give much history Review of Systems Review of Systems: Unobtainable due to cognitive status Physical Exam Physical Exam: General exam: Appears comfortable, no acute distress HEENT: Pupils are equal and reactive to light Neck: No JVD, neck is supple trachea is midline Respiratory system: Clear breath sounds bilaterally. Gastrointestinal: Abdomen is soft, non distended, non tender, bowel sounds are present CVS: Regular rate and rhythm. No murmurs, rubs or gallops Musculoskeletal: No joint or muscle tenderness Extremities: Non tender, no edema, peripheral pulses are present Neuro: Flexion contractures Skin: No rashes, sacral wounds Results & Data Vital Signs (Past 12 Hours) Vital Signs Temp Pulse Pulse Resp BP Pulse Ox 08/03/19 07:12 36.8 C 95 H 16 120/77 95 08/03/19 03:13 37.4 C 92 H 18 145/86 H 94 08/02/19 23:08 37.1 C 83 18 160/71 H 97 08/02/19 22:23 77 (1) Acute renal failure Acute renal failure type: unspecified Qualified Code(s): N17.9 - Acute kidney failure, unspecified
[2019-08-03] MEDS: PEPTAMEN 1.5 CAL 1,000 ML BAG PEG SCH (12:07)
[2019-08-03] MEDS: LACTATED RINGER'S 1,000 ML IV SCH (12:08)
--- NOTE | 2019-08-03 13:03 | Hospitalist Progress Note ---
Date of Service August 03, 2019 Assessment & Plan (1) Change in mental status: Likely secondary to possible sepsis due to complicated UTI with Childs catheter and multiple decubiti ulcers Was admitted 12 from [facility] with possible change in mental status Does not have any acute distress and is not communicating verbally this morning Doubt any stroke Clinically much better today Communicating at his baseline (2) Acute renal failure: Creatinine has been very high at 4.45 from 1.27 on sixth of this month Likely secondary to severe dehydration Appreciate nephrology input and recommendation Has been on half normal saline with bicarb drip as per nephrology Will monitor PRP Renal function has been improving Bilateral hydronephrosis Likely complicating acute renal failure Has indwelling Childs catheter Will consult urology for further management Discussed with urologist and the consult canceled Since he has been making out urine normally through the Childs there is no need to do any intervention by the urologist at this time Will have an outpatient follow-up appointment (3) Hyperkalemia: Secondary to acute renal impairment Has been on bicarb drip We will monitor-potassium is normalized (4) Chronic indwelling Childs catheter: Possible Sepsis secondary to UTI due to indwelling Childs catheter Urine culture -Streptococcus species, sensitive to penicillin and cephalosporin but resistant to quinolones Blood culture -negative (5) Severe protein-calorie malnutrition: Continue PEG tube feeding (6) Decubitus ulcer: Pressure ulcers of medial sacrum, stage 3; right lateral hip, stage 4; unstageable right scapular ulcer, left medial lower leg deep tissue injury, likely right lower lateral leg pressure injury; unstageable right medial foot and ankle pressure ulcer; and stage 4 pressure ulcer to left lateral hip Has significant sacral decubiti, stage IV as in the picture Will get CT of the pelvis to rule out any osteomyelitis and/or hip joint effusion Appreciate wound care input and recommendation Has been started on intravenous daptomycin and Zosyn Blood cultures negative Wound culture gram-multiresistant Pseudomonas-sensitive to aminoglycoside, tobramycin and gentamicin, and E. coli sensitive to cephalosporin Antibiotics have been changed to daptomycin and Ceftozane/tazobactam (7) Schizoid personality disorder: No acute symptoms (8) Hypothyroidism: Continue replacement (9) Chronic systolic CHF (congestive heart failure): No acute CHF Has been getting intravenous fluid and will monitor for any fluid overload (10) HTN (hypertension): We will continue current medication (11) Anxiety: No acute issue Discussed in detail with the brother Subjective 07/31 The patient was seen and examined in medical floor He is a 74-year-old male with significant past medical history of hypertension, chronic systolic CHF, CAD, severe malnutrition, DVT with status post IVC filter with history of recurrent UTI and sepsis, schizoaffective disorder and bedbound with sacral decubiti was admitted with change in mental status from [facility] yesterday Remains stable but not being communicating this morning 08/01 The patient was seen and examined in medical floor She is alert and awake today but remains confused Denies any acute pain 08/02 The patient was seen and examined in telemetry unit He looks much better today and communicates almost normal, at his baseline Denies any acute symptoms Review of Systems Review of Systems: All systems reviewed and are unremarkable except as noted below Musculoskeletal: Has flexural deformities involving the lower and upper extremities Integumentary: Extensive decubiti ulcers involving the sacrum and adjoining areas Physical Exam Physical Exam: Lying in bed comfortably Constitutional: + ill appearing, + thin and + cachectic Eyes: PERRL, conjunctivae normal, anicteric sclerae ENMT: external ear and nose normal, oropharynx normal Neck: trachea midline, no thyromegaly Respiratory: normal respiratory effort Auscultation: + diminished lung sounds Cardiovascular: Rate/Rhythm: regular rate and regular rhythm Heart Sounds: no murmur Gastrointestinal (Abdomen): Inspection/Auscultation: + abdomen abnormal to inspection and + abnormal bowel sounds (Bowel sounds sluggish) Percussion/Palpation: abdomen nontender Lymphatic: no cervical or axillary lymphadenopathy Results & Data Vital Signs (Past 12 Hours) Vital Signs Temp Pulse Pulse Resp BP Pulse Ox 08/03/19 11:28 36.6 C 90 18 150/87 H 95 08/03/19 09:20 90 08/03/19 07:12 36.8 C 95 H 16 120/77 95 08/03/19 03:13 37.4 C 92 H 18 145/86 H 94 Medications Administered Current Inpatient Medications Acetaminophen (Tylenol) 650 mg PEG Q4H PRN PRN Reason: Pain or Fever Stop: 08/30/19 05:41 Apixaban (Eliquis) 5 mg PO BID [facility] Stop: 08/30/19 08:59 Last Admin: 08/03/19 09:10 Dose: 5 mg Documented by: Baclofen (Lioresal) 5 mg PO TID [facility] Stop: 08/30/19 08:59 Last Admin: 08/03/19 09:08 Dose: 5 mg Documented by: Bisacodyl (Dulcolax) 10 mg IN UD PRN PRN Reason: 3RD DAY WITH NO BM Stop: 08/30/19 05:41 Divalproex Sodium (Depakote Sprinkle) 500 mg PEG BID [facility] Stop: 08/30/19 08:59 Last Admin: 08/03/19 09:06 Dose: 500 mg Documented by: Docusate Sodium (Colace) 100 mg PEG BID [facility] Stop: 08/30/19 10:59 Last Admin: 08/03/19 09:08 Dose: 100 mg Documented by: Enteral Nutritional Formula (Peptamen 1.5 Daryl) 1,080 ml PEG TODAY@1100 [facility]; Protocol Stop: 08/30/19 10:59 Last Admin: 08/03/19 12:07 Dose: 1,080 ml Documented by: Fentanyl (Duragesic) 25 mcg TD Q72H [facility] Stop: 08/15/19 08:59 Last Admin: 08/01/19 08:35 Dose: 25 mcg Documented by: Ferrous Sulfate (Feosol) 325 mg PEG BID [facility] Stop: 08/30/19 10:59 Last Admin: 08/03/19 09:03 Dose: 325 mg Documented by: Folic Acid (Folvite) 1 mg PO DAILY [facility] Stop: 08/30/19 08:59 Last Admin: 08/03/19 09:03 Dose: 1 mg Documented by: Daptomycin 425 mg/ Syringe 8.5 mls @ 4.25 mls/min IV Q48H [facility] Stop: 08/12/19 03:59 Last Admin: 08/02/19 04:57 Dose: 4.25 mls/min Documented by: Ceftolozane/Tazobactam 375 mg/ (Dextrose) 102.85 mls @ 111.4 mls/hr IV Q8H [facility] Stop: 08/11/19 09:59 Last Admin: 08/03/19 12:07 Dose: 111.4 mls/hr Documented by: Lactated Ringer's (Lr) 1,000 mls @ 80 mls/hr IV .[id number] [facility] Stop: 09/01/19 10:59 Last Admin: 08/03/19 12:08 Dose: 80 mls/hr Documented by: Lansoprazole (Prevacid) 30 mg PEG DAILY [facility] Stop: 08/31/19 08:59 Last Admin: 08/03/19 09:11 Dose: 30 mg Documented by: Levothyroxine Sodium (Synthroid) 25 mcg PEG DAILYBB [facility] Stop: 08/30/19 06:29 Last Admin: 08/03/19 05:45 Dose: 25 mcg Documented by: Magnesium Hydroxide (Milk Of Magnesia) 30 ml PEG DAILY PRN PRN Reason: Constipation Stop: 08/30/19 05:41 Metoprolol Tartrate (Lopressor) 12.5 mg PO BID [facility] Stop: 08/30/19 08:59 Last Admin: 08/03/19 09:09 Dose: 12.5 mg Documented by: Miscellaneous (Fentanyl Patch Remove & Waste) 1 ea N/A Q3D [facility] Stop: 08/31/19 08:58 Last Admin: 08/01/19 08:35 Dose: 1 ea Documented by: Miscellaneous (Fentanyl Patch Check Placement) 1 ea N/A QS [facility] Stop: 08/30/19 07:59 Last Admin: 08/03/19 09:03 Dose: 1 ea Documented by: Miscellaneous Information (Consult) 1 ea N/A UD PRN PRN Reason: Consult Stop: 08/30/19 05:52 Miscellaneous Information (Pharmacy Consult) 1 ea N/A UD PRN PRN Reason: Consult Stop: 08/31/19 09:51 Multivitamins/Minerals (Multivitamin W/ Minerals Tab) 1 tab PO DAILY [facility] Stop: 08/30/19 08:59 Last Admin: 08/03/19 09:07 Dose: 1 tab Documented by: Nitroglycerin (Nitrostat) 0.4 mg SL UD PRN PRN Reason: Chest Pain Stop: 08/30/19 05:41 Nutritional Formula (Prosource No Carb) 30 ml PEG BID [facility] Stop: 08/30/19 10:59 Last Admin: 08/03/19 09:12 Dose: 30 ml Documented by: Ondansetron HCl (Zofran) 4 mg IV Q6H PRN PRN Reason: Nausea Stop: 08/30/19 05:41 Oxycodone HCl (Roxicodone Immediate Rel) 5 mg PEG Q6 [facility] Stop: 08/14/19 06:14 Last Admin: 08/03/19 12:10 Dose: 5 mg Documented by: Polyethylene Glycol (Miralax Powder Packet) 17 gm PEG DAILY PRN PRN Reason: Constipation Stop: 08/30/19 05:41 Risperidone (Risperdal) 0.5 mg PEG BID [facility] Stop: 08/30/19 08:59 Last Admin: 08/03/19 09:09 Dose: 0.5 mg Documented by: Saccharomyces Boulardii (Florastor) 250 mg PO BID [facility] Stop: 08/30/19 08:59 Last Admin: 08/03/19 09:10 Dose: 250 mg Documented by: Thiamine HCl (Vitamin B-1) 100 mg PEG DAILY [facility] Stop: 08/30/19 08:59 Last Admin: 08/03/19 09:03 Dose: 100 mg Documented by: Tramadol HCl (Ultram) 50 mg PO Q6 PRN PRN Reason: PAIN 4-10 Stop: 08/30/19 05:41 Vitamin B Complex (Vitamin B Complex) 1 tab PO DAILY [facility] Stop: 08/30/19 08:59 Last Admin: 08/03/19 09:06 Dose: 1 tab Documented by: (1) Acute renal failure Acute renal failure type: unspecified Qualified Code(s): N17.9 - Acute kidney failure, unspecified (2) Hypothyroidism Hypothyroidism type: other Qualified Code(s): E03.8 - Other specified hypothyroidism (3) HTN (hypertension) Hypertension type: essential hypertension Qualified Code(s): I10 - Essential (primary) hypertension
[2019-08-04] MEDS: OXYCODONE HCL IR 5 MG TAB (IMMEDIATE RELEASE) PEG SCH ×4 (00:03→18:20)
[2019-08-04] MEDS: LACTATED RINGER'S 1,000 ML IV SCH ×2 (00:08→13:33)
[2019-08-04] MEDS: CHECK FENTANYL PATCH PLACEMENT SCH ×3 (00:23→18:20)
[2019-08-04] MEDS: CEFTOLOZANE/TAZOBACTAM 375 MG in DEXTROSE 5% 100 ML IV SCH (04:01)
[2019-08-04] MEDS: DAPTOmycin 425 MG in SYRINGE 0 ML IV SCH (04:02)
[2019-08-04] MEDS: LEVOTHYROXINE SODIUM 25 MCG TABLET PEG SCH (05:45)
[2019-08-04 06:40] LABS: Basophils # (auto) 0.02 K/uL (0-0.2); Basophils % (auto) 0.3 %; Eosinophils # (auto) 0.24 K/uL (0-0.5); Eosinophils % (auto) 3.3 %; Hematocrit (blood only) 24.9 % (42-52); Immature Granulocytes # (auto) 0.02 K/uL (0.00-0.02); Immature Granulocytes % (auto) 0.3 %; Lymphocytes # (auto) 1.66 K/uL (1.2-3.4); Lymphocytes % (auto) 22.7 %; Mean Corpuscular Hemoglobin 29.2 pg (25-34); Mean Corpuscular Hgb Conc 32.1 g/dL (32-36); Mean Corpuscular Volume 90.9 fL (80-100); Mean Platelet Volume 9.3 fL (7.4-10.4); Monocytes # (auto) 0.65 K/uL (0.11-0.59); Monocytes % (auto) 8.9 %; Neutrophils # (auto) 4.72 K/uL (1.4-6.5); Neutrophils % (auto) 64.5 %; Platelet Count 281 K/uL (130-400); RDW Coefficient of Variation 16.3 % (11.5-14.5); RDW Standard Deviation 54.4 fL (36.4-46.3); Red Blood Count 2.74 M/uL (4.7-6.1); White Blood Count 7.31 K/uL (4.8-10.8)
[2019-08-04 07:49] LABS: BUN Creatinine Ratio 33.8 (10-20); Calcium 8.1 mg/dl (8.5-10.1); Creatinine Clr Calc Pharmacy 46.9 ml/min; Est GFR (African American) 59.9; Est GFR (Non-African American) 51.7; Potassium 3.5 mmol/L (3.5-5.1)
[2019-08-04] MEDS: FERROUS SULFATE 325 MG/7.4 ML UDP PEG SCH ×2 (09:51→20:11)
[2019-08-04] MEDS: APIXABAN 5 MG TABLET PO SCH ×2 (09:51→20:09)
[2019-08-04] MEDS: fentaNYL 25 MCG/HR TDSY TD SCH (09:52)
[2019-08-04] MEDS: DOCUSATE SODIUM SYRUP 100 MG/10 ML UDC PEG SCH ×2 (09:53→20:08)
[2019-08-04] MEDS: DIVALPROEX SODIUM SPRINKLE 125 MG CAP PEG SCH ×2 (09:53→20:08)
[2019-08-04] MEDS: SACCHAROMYCES BOULARDII 250 MG CAP PO SCH ×2 (09:55→20:11)
[2019-08-04] MEDS: FOLIC ACID 1 MG TAB PO SCH (09:56)
[2019-08-04] MEDS: BACLOFEN 10 MG TAB PO SCH ×3 (09:56→20:12)
[2019-08-04] MEDS: CEROVITE ADV FORMULA TAB PO SCH (09:57)
[2019-08-04] MEDS: METOPROLOL TARTRATE 25 MG TAB PO SCH ×2 (09:57→20:12)
[2019-08-04] MEDS: PROSOURCE NO CARB 30 ML/PKT PEG SCH ×2 (09:58→20:08)
[2019-08-04] MEDS: LANSOPRAZOLE 30 MG SOLTAB PEG SCH (10:01)
[2019-08-04] MEDS: THIAMINE HCL 100 MG TAB PEG SCH (10:02)
[2019-08-04] MEDS: VITAMIN B COMPLEX TAB PO SCH (10:02)
[2019-08-04] MEDS: risperiDONE 0.5 MG TABLET PEG SCH ×2 (10:02→20:10)
[2019-08-04] MEDS: CEFTOLOZANE/TAZOBACTAM 750 MG in DEXTROSE 5% 100 ML IV SCH ×2 (10:03→18:20)
[2019-08-04] MEDS: PEPTAMEN 1.5 CAL 1,000 ML BAG PEG SCH ×2 (12:28→13:38)
--- NOTE | 2019-08-04 15:54 | Hospitalist Progress Note ---
Date of Service August 04, 2019 Assessment & Plan (1) Change in mental status: Likely secondary to possible sepsis due to complicated UTI with Childs catheter and multiple decubiti ulcers Was admitted 12 from [facility] with possible change in mental status Does not have any acute distress and is not communicating verbally this morning Doubt any stroke Clinically much better today Communicating at his baseline Remains stable without any significant symptoms (2) Acute renal failure: Creatinine has been very high at 4.45 from 1.27 on sixth of this month Likely secondary to severe dehydration Appreciate nephrology input and recommendation Has been on half normal saline with bicarb drip as per nephrology Will monitor PRP Renal function keeps improving and is almost normalized Bilateral hydronephrosis Likely complicating acute renal failure Has indwelling Childs catheter Will consult urology for further management Discussed with urologist and the consult canceled Since he has been making out urine normally through the Childs there is no need to do any intervention by the urologist at this time Will have an outpatient follow-up appointment (3) Hyperkalemia: Secondary to acute renal impairment Has been on bicarb drip We will monitor-potassium is normalized Now going towards hypokalemia (4) Chronic indwelling Childs catheter: Possible Sepsis secondary to UTI due to indwelling Childs catheter Urine culture -Streptococcus species, sensitive to penicillin and cephalosporin but resistant to quinolones Blood culture -negative (5) Severe protein-calorie malnutrition: Continue PEG tube feeding (6) Decubitus ulcer: Pressure ulcers of medial sacrum, stage 3; right lateral hip, stage 4; unstageable right scapular ulcer, left medial lower leg deep tissue injury, likely right lower lateral leg pressure injury; unstageable right medial foot and ankle pressure ulcer; and stage 4 pressure ulcer to left lateral hip Has significant sacral decubiti, stage IV as in the picture Will get CT of the pelvis to rule out any osteomyelitis and/or hip joint effusion Appreciate wound care input and recommendation Has been started on intravenous daptomycin and Zosyn Blood cultures negative Wound culture gram-multiresistant Pseudomonas-sensitive to aminoglycoside, tobramycin and gentamicin, and E. coli sensitive to cephalosporin Antibiotics have been changed to daptomycin and Ceftozane/tazobactam We will continue current antibiotics (7) Schizoid personality disorder: No acute symptoms (8) Hypothyroidism: Continue replacement (9) Chronic systolic CHF (congestive heart failure): No acute CHF Has been getting intravenous fluid and will monitor for any fluid overload (10) HTN (hypertension): We will continue current medication (11) Anxiety: No acute issue Discussed in detail with the brother Subjective 07/31 The patient was seen and examined in medical floor He is a 74-year-old male with significant past medical history of hypertension, chronic systolic CHF, CAD, severe malnutrition, DVT with status post IVC filter with history of recurrent UTI and sepsis, schizoaffective disorder and bedbound with sacral decubiti was admitted with change in mental status from [facility] yesterday Remains stable but not being communicating this morning 08/01 The patient was seen and examined in medical floor She is alert and awake today but remains confused Denies any acute pain 08/02 The patient was seen and examined in telemetry unit He looks much better today and communicates almost normal, at his baseline Denies any acute symptoms 08/04 The patient was seen and examined in medical floor He remains stable and a bit better today Has been communicating reasonably well Denies any significant symptoms Review of Systems Review of Systems: All systems reviewed and are unremarkable except as noted below Musculoskeletal: Has flexural deformities involving the lower and upper extremities Integumentary: Extensive decubiti ulcers involving the sacrum and adjoining areas Physical Exam Physical Exam: No apparent distress at rest Constitutional: + ill appearing, + thin and + cachectic Eyes: PERRL, conjunctivae normal, anicteric sclerae ENMT: external ear and nose normal, oropharynx normal Neck: trachea midline, no thyromegaly Respiratory: normal respiratory effort Auscultation: + diminished lung sounds Cardiovascular: Rate/Rhythm: regular rate and regular rhythm Heart Sounds: no murmur Gastrointestinal (Abdomen): Inspection/Auscultation: + abdomen abnormal to inspection and + abnormal bowel sounds (Bowel sounds sluggish) Percussion/Palpation: abdomen nontender Musculoskeletal: Has flexion deformities involving the lower extremities and to some extent upper extremities Neurologic: Alert awake. Pleasantly confused. Bedbound secondary to schizoaffective disorder with flexion deformities involving the extremities Lymphatic: no cervical or axillary lymphadenopathy Results & Data Vital Signs (Past 12 Hours) Vital Signs Temp Pulse Resp BP Pulse Ox 08/04/19 15:31 36.5 C 95 H 18 143/83 H 96 08/04/19 11:12 36.7 C 74 18 157/82 H 98 08/04/19 07:16 37.1 C 97 H 18 132/72 95 Laboratory Results Short CBC 08/04/19 Range/Units 06:19 WBC 7.31 (4.8-10.8) K/uL Hgb 8.0 L (14.0-18.0) g/dL Hct 24.9 L (42-52) % Plt Count 281 (130-400) K/uL BMP 08/04/19 06:19 Sodium 145 Potassium 3.5 Chloride 112 H Carbon Dioxide 30 BUN 46 H D Creatinine 1.35 D Glucose 122 H Calcium 8.1 L Medications Administered Current Inpatient Medications Acetaminophen (Tylenol) 650 mg PEG Q4H PRN PRN Reason: Pain or Fever Stop: 08/30/19 05:41 Amoxicillin (Amoxicillin Susp) 875 mg PO Q12 [facility]; Protocol Stop: 08/09/19 23:59 Apixaban (Eliquis) 5 mg PO BID [facility] Stop: 08/30/19 08:59 Last Admin: 08/04/19 09:51 Dose: 5 mg Documented by: Baclofen (Lioresal) 5 mg PO TID [facility] Stop: 08/30/19 08:59 Last Admin: 08/04/19 13:31 Dose: 5 mg Documented by: Bisacodyl (Dulcolax) [address] UD PRN PRN Reason: 3RD DAY WITH NO BM Stop: 08/30/19 05:41 Divalproex Sodium (Depakote Sprinkle) 500 mg PEG BID [facility] Stop: 08/30/19 08:59 Last Admin: 08/04/19 09:53 Dose: 500 mg Documented by: Docusate Sodium (Colace) 100 mg PEG BID [facility] Stop: 08/30/19 10:59 Last Admin: 08/04/19 09:53 Dose: 100 mg Documented by: Enteral Nutritional Formula (Peptamen 1.5 Daryl) 1,000 ml PEG TODAY@1315 [facility]; Protocol Stop: 09/03/19 13:14 Last Admin: 08/04/19 13:38 Dose: 1,000 ml Documented by: Fentanyl (Duragesic) 25 mcg TD Q72H [facility] Stop: 08/15/19 08:59 Last Admin: 08/04/19 09:52 Dose: 25 mcg Documented by: Ferrous Sulfate (Feosol) 325 mg PEG BID [facility] Stop: 08/30/19 10:59 Last Admin: 08/04/19 09:51 Dose: 325 mg Documented by: Folic Acid (Folvite) 1 mg PO DAILY [facility] Stop: 08/30/19 08:59 Last Admin: 08/04/19 09:56 Dose: 1 mg Documented by: Lactated Ringer's (Lr) 1,000 mls @ 80 mls/hr IV .[id number] [facility] Stop: 09/01/19 10:59 Last Admin: 08/04/19 13:33 Dose: 80 mls/hr Documented by: Ceftolozane/Tazobactam 750 mg/ (Dextrose) 105.7 mls @ 105.7 mls/hr IV Q8H [facility]; Protocol Stop: 08/12/19 09:59 Last Infusion: 08/04/19 10:59 Dose: Infused Documented by: Lansoprazole (Prevacid) 30 mg PEG DAILY [facility] Stop: 08/31/19 08:59 Last Admin: 08/04/19 10:01 Dose: 30 mg Documented by: Levothyroxine Sodium (Synthroid) 25 mcg PEG DAILYBB [facility] Stop: 08/30/19 06:29 Last Admin: 08/04/19 05:45 Dose: 25 mcg Documented by: Magnesium Hydroxide (Milk Of Magnesia) 30 ml PEG DAILY PRN PRN Reason: Constipation Stop: 08/30/19 05:41 Metoprolol Tartrate (Lopressor) 12.5 mg PO BID [facility] Stop: 08/30/19 08:59 Last Admin: 08/04/19 09:57 Dose: 12.5 mg Documented by: Miscellaneous (Fentanyl Patch Remove & Waste) 1 ea N/A Q3D [facility] Stop: 08/31/19 08:58 Last Admin: 08/04/19 09:50 Dose: 1 ea Documented by: Miscellaneous (Fentanyl Patch Check Placement) 1 ea N/A QS [facility] Stop: 08/30/19 07:59 Last Admin: 08/04/19 09:50 Dose: 1 ea Documented by: Miscellaneous Information (Pharmacy Consult) 1 ea N/A UD PRN PRN Reason: Consult Stop: 08/31/19 09:51 Multivitamins/Minerals (Multivitamin W/ Minerals Tab) 1 tab PO DAILY [facility] Stop: 08/30/19 08:59 Last Admin: 08/04/19 09:57 Dose: 1 tab Documented by: Nitroglycerin (Nitrostat) 0.4 mg SL UD PRN PRN Reason: Chest Pain Stop: 08/30/19 05:41 Nutritional Formula (Prosource No Carb) 30 ml PEG BID [facility] Stop: 08/30/19 10:59 Last Admin: 08/04/19 09:58 Dose: 30 ml Documented by: Ondansetron HCl (Zofran) 4 mg IV Q6H PRN PRN Reason: Nausea Stop: 08/30/19 05:41 Oxycodone HCl (Roxicodone Immediate Rel) 5 mg PEG Q6 [facility] Stop: 08/14/19 06:14 Last Admin: 08/04/19 13:31 Dose: 5 mg Documented by: Polyethylene Glycol (Miralax Powder Packet) 17 gm PEG DAILY PRN PRN Reason: Constipation Stop: 08/30/19 05:41 Risperidone (Risperdal) 0.5 mg PEG BID [facility] Stop: 08/30/19 08:59 Last Admin: 08/04/19 10:02 Dose: 0.5 mg Documented by: Saccharomyces Boulardii (Florastor) 250 mg PO BID [facility] Stop: 08/30/19 08:59 Last Admin: 08/04/19 09:55 Dose: 250 mg Documented by: Thiamine HCl (Vitamin B-1) 100 mg PEG DAILY [facility] Stop: 08/30/19 08:59 Last Admin: 08/04/19 10:02 Dose: 100 mg Documented by: Tramadol HCl (Ultram) 50 mg PO Q6 PRN PRN Reason: PAIN 4-10 Stop: 08/30/19 05:41 Vitamin B Complex (Vitamin B Complex) 1 tab PO DAILY [facility] Stop: 08/30/19 08:59 Last Admin: 08/04/19 10:02 Dose: 1 tab Documented by: (1) Acute renal failure Acute renal failure type: unspecified Qualified Code(s): N17.9 - Acute kidney failure, unspecified (2) Hypothyroidism Hypothyroidism type: other Qualified Code(s): E03.8 - Other specified hypothyroidism (3) HTN (hypertension) Hypertension type: essential hypertension Qualified Code(s): I10 - Essential (primary) hypertension
--- NOTE | 2019-08-04 18:38 | Nephrology Progress Note ---
Date of Service August 04, 2019 Assessment & Plan (1) Acute renal failure: obstructive uropathy which is at least partly chronic from which he may or may not recover; other considerations include prerenal versus ATN presenting creatinine 4.45; baseline 0.8-1.1; already on slight uptrend earlier this month (1.3 on 07/11); creatinine improving 1.35 from 2.8 yesterday -Monitor renal function with daily BMP -cont to avoid nephrotoxins and to treat uti ->>with BL hydroureteronephrosis on CT and bladder distension-Has felix now Renal will sign off. Please call if additional questions (2) Acute hyperkalemia: on presentation which has improved w/ medical mgt -Change fluids to Ringer's lactate at same rate. Subjective Patient does not give history. Making lots of urine. Cr better Review of Systems Review of Systems: Unobtainable due to cognitive status Physical Exam Physical Exam: General exam: Appears comfortable, no acute distress HEENT: Pupils are equal and reactive to light Neck: No JVD, neck is supple trachea is midline Respiratory system: Clear breath sounds bilaterally. Gastrointestinal: Abdomen is soft, non distended, non tender, bowel sounds are present CVS: Regular rate and rhythm. No murmurs, rubs or gallops Musculoskeletal: No joint or muscle tenderness Extremities: Non tender, no edema, peripheral pulses are present Neuro: Flexion contractures Skin: No rashes Results & Data Vital Signs (Past 12 Hours) Vital Signs Temp Pulse Resp BP Pulse Ox 08/04/19 15:31 36.5 C 95 H 18 143/83 H 96 08/04/19 11:12 36.7 C 74 18 157/82 H 98 08/04/19 07:16 37.1 C 97 H 18 132/72 95 Laboratory Results Laboratory Results - last 24 hr 08/04/19 08/04/19 06:19 06:19 WBC 7.31 RBC 2.74 L Hgb 8.0 L Hct 24.9 L MCV 90.9 MCH 29.2 MCHC 32.1 RDW Std Deviation 54.4 H RDW Coeff of Lucila 16.3 H Plt Count 281 MPV 9.3 Immature Gran % (Auto) 0.3 Neut % (Auto) 64.5 Lymph % (Auto) 22.7 [place] % (Auto) 8.9 Eos % (Auto) 3.3 Baso % (Auto) 0.3 Immature Gran # (Auto) 0.02 Neut # (Auto) 4.72 Lymph # (Auto) 1.66 [place] # (Auto) 0.65 H Eos # (Auto) 0.24 Baso # (Auto) 0.02 Sodium 145 Potassium 3.5 Chloride 112 H Carbon Dioxide 30 Anion Gap 3.0 BUN 46 H D Creatinine 1.35 D Est Cr Clr Drug Dosing 46.9 Est GFR ( Amer) 59.9 Est GFR (Non-Af Amer) 51.7 BUN/Creatinine Ratio 33.8 H Glucose 122 H Calcium 8.1 L (1) Acute renal failure Acute renal failure type: unspecified Qualified Code(s): N17.9 - Acute kidney failure, unspecified
[2019-08-05] MEDS: CHECK FENTANYL PATCH PLACEMENT SCH ×3 (00:05→16:55)
[2019-08-05] MEDS: OXYCODONE HCL IR 5 MG TAB (IMMEDIATE RELEASE) PEG SCH ×4 (00:08→18:38)
[2019-08-05] MEDS: LACTATED RINGER'S 1,000 ML IV SCH ×2 (01:16→13:34)
[2019-08-05] MEDS: CEFTOLOZANE/TAZOBACTAM 750 MG in DEXTROSE 5% 100 ML IV SCH ×3 (01:20→18:38)
[2019-08-05] MEDS ORDERED: DAPTOmycin 425 MG in SYRINGE 0 ML IV SCH (04:00)
[2019-08-05] MEDS: LEVOTHYROXINE SODIUM 25 MCG TABLET PEG SCH (05:37)
[2019-08-05] MEDS: BACLOFEN 10 MG TAB PO SCH ×3 (08:33→21:09)
[2019-08-05] MEDS: METOPROLOL TARTRATE 25 MG TAB PO SCH ×2 (08:33→21:10)
[2019-08-05] MEDS: DIVALPROEX SODIUM SPRINKLE 125 MG CAP PEG SCH ×2 (08:34→21:10)
[2019-08-05] MEDS: CEROVITE ADV FORMULA TAB PO SCH (08:34)
[2019-08-05] MEDS: LANSOPRAZOLE 30 MG SOLTAB PEG SCH (08:34)
[2019-08-05] MEDS: PROSOURCE NO CARB 30 ML/PKT PEG SCH ×2 (08:34→21:09)
[2019-08-05] MEDS: FERROUS SULFATE 325 MG/7.4 ML UDP PEG SCH ×2 (08:34→21:09)
[2019-08-05] MEDS: APIXABAN 5 MG TABLET PO SCH ×2 (08:35→21:11)
[2019-08-05] MEDS: THIAMINE HCL 100 MG TAB PEG SCH (08:35)
[2019-08-05] MEDS: SACCHAROMYCES BOULARDII 250 MG CAP PO SCH ×2 (08:35→21:11)
[2019-08-05] MEDS: VITAMIN B COMPLEX TAB PO SCH (08:35)
[2019-08-05] MEDS: FOLIC ACID 1 MG TAB PO SCH (08:35)
[2019-08-05] MEDS: risperiDONE 0.5 MG TABLET PEG SCH ×2 (08:35→21:11)
[2019-08-05] MEDS: DOCUSATE SODIUM SYRUP 100 MG/10 ML UDC PEG SCH ×2 (08:36→21:09)
[2019-08-05] MEDS: AMOXICILLIN SUSP 250 MG/5 ML 100 ML BTL PO SCH ×2 (09:46→21:09)
[2019-08-05] MEDS ORDERED: PEPTAMEN 1.5 CAL 1,000 ML BAG PEG SCH (11:00)
[2019-08-05] MEDS: PEPTAMEN 1.5 CAL 1,000 ML BAG PEG SCH (13:33)
--- NOTE | 2019-08-05 13:39 | Hospitalist Progress Note ---
Date of Service August 05, 2019 Assessment & Plan (1) Change in mental status: Likely secondary to possible sepsis due to complicated UTI with Childs catheter and multiple decubiti ulcers Was admitted 12 from [facility] with possible change in mental status Does not have any acute distress and is not communicating verbally this morning Doubt any stroke Clinically much better today Communicating at his baseline Remains stable without any significant symptoms Back to his baseline and has been communicating reasonably well (2) Acute renal failure: Creatinine has been very high at 4.45 from 1.27 on sixth of this month Likely secondary to severe dehydration Appreciate nephrology input and recommendation Has been on half normal saline with bicarb drip as per nephrology Will monitor PRP Renal function keeps improving and is almost normalized Renal function remains normal Bilateral hydronephrosis Likely complicating acute renal failure Has indwelling Childs catheter Will consult urology for further management Discussed with urologist and the consult canceled Since he has been making out urine normally through the Childs there is no need to do any intervention by the urologist at this time Will have an outpatient follow-up appointment (3) Hyperkalemia: Secondary to acute renal impairment Has been on bicarb drip We will monitor-potassium is normalized Now going towards hypokalemia (4) Chronic indwelling Childs catheter: Possible Sepsis secondary to UTI due to indwelling Childs catheter Urine culture -Streptococcus species, sensitive to penicillin and cephalosporin but resistant to quinolones Blood culture -negative (5) Severe protein-calorie malnutrition: Continue PEG tube feeding (6) Decubitus ulcer: Pressure ulcers of medial sacrum, stage 3; right lateral hip, stage 4; unstageable right scapular ulcer, left medial lower leg deep tissue injury, likely right lower lateral leg pressure injury; unstageable right medial foot and ankle pressure ulcer; and stage 4 pressure ulcer to left lateral hip Has significant sacral decubiti, stage IV as in the picture Will get CT of the pelvis to rule out any osteomyelitis and/or hip joint effusion Appreciate wound care input and recommendation Has been started on intravenous daptomycin and Zosyn Blood cultures -1 bottle grew E. coli and there is pansensitive Wound culture gram-multiresistant Pseudomonas-sensitive to aminoglycoside, tobramycin and gentamicin, Morganella morganii and E. coli sensitive to cephal osporin Antibiotics have been changed to daptomycin and Ceftozane/tazobactam We will continue current antibiotics Still awaiting sensitivities Likely to be discharged in a day or 2 after sensitivities are received (7) Schizoid personality disorder: No acute symptoms (8) Hypothyroidism: Continue replacement (9) Chronic systolic CHF (congestive heart failure): No acute CHF Has been getting intravenous fluid and will monitor for any fluid overload (10) HTN (hypertension): We will continue current medication (11) Anxiety: No acute issue Discussed in detail with the brother We will discuss with his brother today Subjective 07/31 The patient was seen and examined in medical floor He is a 74-year-old male with significant past medical history of hypertension, chronic systolic CHF, CAD, severe malnutrition, DVT with status post IVC filter with history of recurrent UTI and sepsis, schizoaffective disorder and bedbound with sacral decubiti was admitted with change in mental status from [facility] yesterday Remains stable but not being communicating this morning 08/01 The patient was seen and examined in medical floor She is alert and awake today but remains confused Denies any acute pain 08/02 The patient was seen and examined in telemetry unit He looks much better today and communicates almost normal, at his baseline Denies any acute symptoms 08/04 The patient was seen and examined in medical floor He remains stable and a bit better today Has been communicating reasonably well Denies any significant symptoms 08/05 The patient was seen and examined in medical floor He remains stable and today's on of the best day for him He has been communicating with me almost normal Denies any significant symptoms Review of Systems Review of Systems: All systems reviewed and are unremarkable except as noted below Musculoskeletal: Has flexural deformities involving the lower and upper extremities Integumentary: Extensive decubiti ulcers involving the sacrum and adjoining areas Physical Exam Physical Exam: Lying in bed comfortably without any symptoms Constitutional: + thin and + cachectic Eyes: PERRL, conjunctivae normal, anicteric sclerae ENMT: external ear and nose normal, oropharynx normal Neck: trachea midline, no thyromegaly Respiratory: normal respiratory effort Auscultation: + diminished lung sounds Cardiovascular: Rate/Rhythm: regular rate and regular rhythm Heart Sounds: no murmur Gastrointestinal (Abdomen): Inspection/Auscultation: + abdomen abnormal to inspection and + abnormal bowel sounds (Bowel sounds sluggish) Percussion/Palpation: abdomen nontender Musculoskeletal: Flexion strong deformities involving the lower and upper extremities Neurologic: Alert and awake. Bedbound Lymphatic: no cervical or axillary lymphadenopathy Results & Data Vital Signs (Past 12 Hours) Vital Signs Temp Pulse Pulse Pulse Resp BP Pulse Ox 08/05/19 11:26 37.0 C 94 H 18 131/76 96 08/05/19 08:08 106 H 08/05/19 04:09 37.2 C 99 H 20 136/70 96 Medications Administered Current Inpatient Medications Acetaminophen (Tylenol) 650 mg PEG Q4H PRN PRN Reason: Pain or Fever Stop: 08/30/19 05:41 Amoxicillin (Amoxicillin Susp) 875 mg PO Q12 [facility]; Protocol Stop: 08/09/19 23:59 Last Admin: 08/05/19 09:46 Dose: 875 mg Documented by: Apixaban (Eliquis) 5 mg PO BID [facility] Stop: 08/30/19 08:59 Last Admin: 08/05/19 08:35 Dose: 5 mg Documented by: Baclofen (Lioresal) 5 mg PO TID [facility] Stop: 08/30/19 08:59 Last Admin: 08/05/19 13:34 Dose: 5 mg Documented by: Bisacodyl (Dulcolax) 10 mg NC UD PRN PRN Reason: 3RD DAY WITH NO BM Stop: 08/30/19 05:41 Divalproex Sodium (Depakote Sprinkle) 500 mg PEG BID [facility] Stop: 08/30/19 08:59 Last Admin: 08/05/19 08:34 Dose: 500 mg Documented by: Docusate Sodium (Colace) 100 mg PEG BID [facility] Stop: 08/30/19 10:59 Last Admin: 08/05/19 08:36 Dose: Not Given Documented by: Enteral Nutritional Formula (Peptamen 1.5 Daryl) 1,000 ml PEG TODAY@1315 [facility]; Protocol Stop: 09/03/19 13:14 Last Admin: 08/05/19 13:33 Dose: 1,000 ml Documented by: Fentanyl (Duragesic) 25 mcg TD Q72H [facility] Stop: 08/15/19 08:59 Last Admin: 08/04/19 09:52 Dose: 25 mcg Documented by: Ferrous Sulfate (Feosol) 325 mg PEG BID [facility] Stop: 08/30/19 10:59 Last Admin: 08/05/19 08:34 Dose: 325 mg Documented by: Folic Acid (Folvite) 1 mg PO DAILY [facility] Stop: 08/30/19 08:59 Last Admin: 08/05/19 08:35 Dose: 1 mg Documented by: Lactated Ringer's (Lr) 1,000 mls @ 80 mls/hr IV .[id number] [facility] Stop: 09/01/19 10:59 Last Admin: 08/05/19 13:34 Dose: 80 mls/hr Documented by: Ceftolozane/Tazobactam 750 mg/ (Dextrose) 105.7 mls @ 105.7 mls/hr IV Q8H [facility]; Protocol Stop: 08/12/19 09:59 Last Infusion: 08/05/19 10:49 Dose: Infused Documented by: Lansoprazole (Prevacid) 30 mg PEG DAILY [facility] Stop: 08/31/19 08:59 Last Admin: 08/05/19 08:34 Dose: 30 mg Documented by: Levothyroxine Sodium (Synthroid) 25 mcg PEG DAILYBB [facility] Stop: 08/30/19 06:29 Last Admin: 08/05/19 05:37 Dose: 25 mcg Documented by: Magnesium Hydroxide (Milk Of Magnesia) 30 ml PEG DAILY PRN PRN Reason: Constipation Stop: 08/30/19 05:41 Metoprolol Tartrate (Lopressor) 12.5 mg PO BID [facility] Stop: 08/30/19 08:59 Last Admin: 08/05/19 08:33 Dose: 12.5 mg Documented by: Miscellaneous (Fentanyl Patch Remove & Waste) 1 ea N/A Q3D [facility] Stop: 08/31/19 08:58 Last Admin: 08/04/19 09:50 Dose: 1 ea Documented by: Miscellaneous (Fentanyl Patch Check Placement) 1 ea N/A QS [facility] Stop: 08/30/19 07:59 Last Admin: 08/05/19 08:36 Dose: 1 ea Documented by: Miscellaneous Information (Pharmacy Consult) 1 ea N/A UD PRN PRN Reason: Consult Stop: 08/31/19 09:51 Multivitamins/Minerals (Multivitamin W/ Minerals Tab) 1 tab PO DAILY [facility] Stop: 08/30/19 08:59 Last Admin: 08/05/19 08:34 Dose: 1 tab Documented by: Nitroglycerin (Nitrostat) 0.4 mg SL UD PRN PRN Reason: Chest Pain Stop: 08/30/19 05:41 Nutritional Formula (Prosource No Carb) 30 ml PEG BID [facility] Stop: 08/30/19 10:59 Last Admin: 08/05/19 08:34 Dose: 30 ml Documented by: Ondansetron HCl (Zofran) 4 mg IV Q6H PRN PRN Reason: Nausea Stop: 08/30/19 05:41 Oxycodone HCl (Roxicodone Immediate Rel) 5 mg PEG Q6 [facility] Stop: 08/14/19 06:14 Last Admin: 08/05/19 13:34 Dose: 5 mg Documented by: Polyethylene Glycol (Miralax Powder Packet) 17 gm PEG DAILY PRN PRN Reason: Constipation Stop: 08/30/19 05:41 Risperidone (Risperdal) 0.5 mg PEG BID [facility] Stop: 08/30/19 08:59 Last Admin: 08/05/19 08:35 Dose: 0.5 mg Documented by: Saccharomyces Boulardii (Florastor) 250 mg PO BID [facility] Stop: 08/30/19 08:59 Last Admin: 08/05/19 08:35 Dose: 250 mg Documented by: Thiamine HCl (Vitamin B-1) 100 mg PEG DAILY [facility] Stop: 08/30/19 08:59 Last Admin: 08/05/19 08:35 Dose: 100 mg Documented by: Tramadol HCl (Ultram) 50 mg PO Q6 PRN PRN Reason: PAIN 4-10 Stop: 08/30/19 05:41 Vitamin B Complex (Vitamin B Complex) 1 tab PO DAILY [facility] Stop: 08/30/19 08:59 Last Admin: 08/05/19 08:35 Dose: 1 tab Documented by: (1) Acute renal failure Acute renal failure type: unspecified Qualified Code(s): N17.9 - Acute kidney failure, unspecified (2) Hypothyroidism Hypothyroidism type: other Qualified Code(s): E03.8 - Other specified h ypothyroidism (3) HTN (hypertension) Hypertension type: essential hypertension Qualified Code(s): I10 - Essential (primary) hypertension
[2019-08-06] MEDS: OXYCODONE HCL IR 5 MG TAB (IMMEDIATE RELEASE) PEG SCH ×4 (00:13→17:47)
[2019-08-06] MEDS: CHECK FENTANYL PATCH PLACEMENT SCH ×3 (00:20→16:55)
[2019-08-06] MEDS: LACTATED RINGER'S 1,000 ML IV SCH ×2 (02:31→14:32)
[2019-08-06] MEDS: CEFTOLOZANE/TAZOBACTAM 750 MG in DEXTROSE 5% 100 ML IV SCH ×2 (02:35→09:53)
[2019-08-06] MEDS: LEVOTHYROXINE SODIUM 25 MCG TABLET PEG SCH (06:05)
[2019-08-06 06:19] LABS: Basophils # (auto) 0.02 K/uL (0-0.2); Basophils % (auto) 0.3 %; Eosinophils # (auto) 0.39 K/uL (0-0.5); Eosinophils % (auto) 6.2 %; Hematocrit (blood only) 23.7 % (42-52); Hemoglobin 7.6 g/dL (14.0-18.0); Immature Granulocytes # (auto) 0.01 K/uL (0.00-0.02); Immature Granulocytes % (auto) 0.2 %; Lymphocytes # (auto) 2.06 K/uL (1.2-3.4); Lymphocytes % (auto) 32.8 %; Mean Corpuscular Hemoglobin 28.9 pg (25-34); Mean Corpuscular Hgb Conc 32.1 g/dL (32-36); Mean Corpuscular Volume 90.1 fL (80-100); Mean Platelet Volume 9.2 fL (7.4-10.4); Monocytes # (auto) 0.53 K/uL (0.11-0.59); Monocytes % (auto) 8.4 %; Neutrophils # (auto) 3.27 K/uL (1.4-6.5); Neutrophils % (auto) 52.1 %; Platelet Count 241 K/uL (130-400); RDW Coefficient of Variation 16.3 % (11.5-14.5); RDW Standard Deviation 53.7 fL (36.4-46.3); Red Blood Count 2.63 M/uL (4.7-6.1); White Blood Count 6.28 K/uL (4.8-10.8)
[2019-08-06 06:57] LABS: BUN Creatinine Ratio 37.9 (10-20); Creatinine Clr Calc Pharmacy 56.2 ml/min; Est GFR (African American) 92.9; Est GFR (Non-African American) 80.1; Magnesium 1.4 mg/dl (1.8-2.4); Phosphorus 2.6 mg/dl (2.5-4.9); Potassium 3.4 mmol/L (3.5-5.1)
[2019-08-06 07:03] LABS: RBC Morphology Unremarkable
[2019-08-06] MEDS: AMOXICILLIN SUSP 250 MG/5 ML 100 ML BTL PO SCH ×2 (08:43→20:22)
[2019-08-06] MEDS: METOPROLOL TARTRATE 25 MG TAB PO SCH ×2 (08:44→20:21)
[2019-08-06] MEDS: CEROVITE ADV FORMULA TAB PO SCH (08:44)
[2019-08-06] MEDS: BACLOFEN 10 MG TAB PO SCH ×3 (08:44→20:22)
[2019-08-06] MEDS: FERROUS SULFATE 325 MG/7.4 ML UDP PEG SCH ×2 (08:44→20:22)
[2019-08-06] MEDS: APIXABAN 5 MG TABLET PO SCH ×2 (08:45→20:20)
[2019-08-06] MEDS: FOLIC ACID 1 MG TAB PO SCH (08:45)
[2019-08-06] MEDS: LANSOPRAZOLE 30 MG SOLTAB PEG SCH (08:45)
[2019-08-06] MEDS: DOCUSATE SODIUM SYRUP 100 MG/10 ML UDC PEG SCH ×2 (08:45→20:20)
[2019-08-06] MEDS: THIAMINE HCL 100 MG TAB PEG SCH (08:45)
[2019-08-06] MEDS: PROSOURCE NO CARB 30 ML/PKT PEG SCH ×2 (08:45→20:23)
[2019-08-06] MEDS: VITAMIN B COMPLEX TAB PO SCH (08:45)
[2019-08-06] MEDS: risperiDONE 0.5 MG TABLET PEG SCH ×2 (08:46→20:21)
[2019-08-06] MEDS: DIVALPROEX SODIUM SPRINKLE 125 MG CAP PEG SCH ×2 (08:46→20:20)
[2019-08-06] MEDS: SACCHAROMYCES BOULARDII 250 MG CAP PO SCH ×2 (08:47→20:20)
[2019-08-06] MEDS ORDERED: POTASSIUM CHLORIDE 20 MEQ TABCR PO STA (09:23)
--- NOTE | 2019-08-06 09:30 | Hospitalist Progress Note ---
Date of Service August 06, 2019 Assessment & Plan (1) Encephalopathy: Encephalopathy Likely secondary to possible sepsis due to complicated UTI- Enterococcus with Childs catheter and multiple decubiti infected ulcers-- Morganella, E coli, Pseudomonas Was admitted [address] [facility] with possible change in mental status Improved Communicating at his baseline -- Urine culture: Enterococcus Wound cultures: (+) Morganella, E coli, Pseudomonas -- as on Dapto, Zosyn; continue Ceftolazone/Tazobactam IV will need to discuss with ID regarding antibiotic choice and duration upon discharge Decubitus ulcer: per Dr. Reyes's notes: Pressure ulcers of medial sacrum, stage 3; right lateral hip, stage 4; unstageable right scapular ulcer, left medial lower leg deep tissue injury, likely right lower lateral leg pressure injury; unstageable right medial foot and ankle pressure ulcer; and stage 4 pressure ulcer to left lateral hip Has significant sacral decubiti, stage IV as in the picture Will get CT of the pelvis to rule out any osteomyelitis and/or hip joint ef fusion Appreciate wound care input and recommendation -- management per #1 will need to ff up with [facility] Chronic indwelling Childs catheter: Possible Sepsis secondary to UTI due to indwelling Childs catheter Urine culture -Enterococcus species, sensitive to penicillin and cephalosporin but resistant to quinolones Blood culture -negative Anemia -- Acute on Chronic -- Hg baseline 9-10 now at 7.5 no signs of overt bleeding -- EGD last year: unrevealing -- will transfuse 1 unit pRBC after consent obtained from patient's brother check anemia panel including FOBT Acute renal failure: Creatinine has been very high at 4.45 from 1.27 on sixth of this month Likely secondary to severe dehydration -- [employer] Coder consulted crea back to baseline -- currently on LR Bilateral hydronephrosis Likely complicating acute renal failure Has indwelling Childs catheter -- Discussed with urologist and the consult canceled Since he has been making out urine normally through the Childs there is no need to do any intervention by the urologist at this time Will have an outpatient follow-up appointment Hyperkalemia: Secondary to acute renal impairment -- K 3.4 will replace Severe protein-calorie malnutrition: Continue PEG tube feeding History of DVT -- on Eliquis Schizoid personality disorder: No acute symptoms Hypothyroidism: Continue replacement Chronic systolic CHF (congestive heart failure): No acute CHF Has been getting intravenous fluid and will monitor for any fluid overload HTN (hypertension): We will continue current medication Anxiety: No acute issue DVT prophylaxis on Eliquis anticipate return to [facility] when medically stable, may need IV antibiotics Subjective ff up for encephalopathy, secondary to Infected Decubitus ulcer, UTI seen resting in bed, comfortable alert, pleasant, answers most questions appropriately states he feels fine overall denies pain no fever/chills no melena noted, no bleeding noted no other symptoms Review of Systems Review of Systems: All systems reviewed & are unremarkable except as noted in HPI & below Physical Exam Physical Exam: General- oriented x 1-2, not in distress, speaks in sentences with no effort or accessory muscle use Head- atraumatic Eyes- PERRL, EOMI, anicteric ENT- oropharynx clear Neck- supple, no JVD, no adenopathy, no thyromegaly; carotids +2/2, no bruits appreciated Lungs- clear to auscultation bilaterally, no rales/wheezes Heart- normal rate, regular rhythm; no murmur, no gallop, no rub appreciated Abdomen- normal bowel sounds, nondistended, soft, nontender, no masses or hepatosplenomegaly PEG tube in place- no issues Extremities- no pretibial edema, no calf tenderness; peripheral pulses intact dressings over ulcers in place Neuro- alert, oriented x 1-2; CN 2-12 grossly intact; motor 5/5 bilaterally;sensation 100% on all extremities; no other gross focal neurologic deficits Skin- warm & dry Results & Data Vital Signs (Past 12 Hours) Vital Signs Temp Pulse Pulse Resp BP BP Pulse Ox 08/06/19 07:06 36.7 C 75 20 135/77 95 08/06/19 04:00 36.7 C 78 20 124/64 98 08/06/19 00:56 81 08/05/19 23:53 37.2 C 81 20 115/65 95 Laboratory Results Laboratory Results - last 24 hr 08/06/19 08/06/19 08/06/19 00:25 05:59 05:59 WBC 6.28 RBC 2.63 L Hgb 7.6 L Hct 23.7 L MCV 90.1 MCH 28.9 MCHC 32.1 RDW Std Deviation 53.7 H RDW Coeff of Lucila 16.3 H Plt Count 241 MPV 9.2 Immature Gran % (Auto) 0.2 Neut % (Auto) 52.1 Lymph % (Auto) 32.8 [place] % (Auto) 8.4 Eos % (Auto) 6.2 Baso % (Auto) 0.3 Immature Gran # (Auto) 0.01 Neut # (Auto) 3.27 Lymph # (Auto) 2.06 [place] # (Auto) 0.53 Eos # (Auto) 0.39 Baso # (Auto) 0.02 RBC Morphology Unremarkable Sodium 144 Potassium 3.4 L Chloride 112 H Carbon Dioxide 28 Anion Gap 4.0 BUN 35 H Creatinine 0.94 D Est Cr Clr Drug Dosing 56.2 Est GFR ( Amer) 92.9 Est GFR (Non-Af Amer) 80.1 BUN/Creatinine Ratio 37.9 H Glucose 106 H POC Glucose 107 H Calcium 8.0 L Phosphorus 2.6 Magnesium 1.4 L 08/06/19 08/06/19 08/06/19 06:13 10:44 11:28 WBC RBC Hgb 7.5 L Hct 23.4 L MCV MCH MCHC RDW Std Deviation RDW Coeff of Lucila Plt Count MPV Immature Gran % (Auto) Neut % (Auto) Lymph % (Auto) [place] % (Auto) Eos % (Auto) Baso % (Auto) Immature Gran # (Auto) Neut # (Auto) Lymph # (Auto) [place] # (Auto) Eos # (Auto) Baso # (Auto) RBC Morphology Sodium Potassium Chloride Carbon Dioxide Anion Gap BUN Creatinine Est Cr Clr Drug Dosing Est GFR ( Amer) Est GFR (Non-Af Amer) BUN/Creatinine Ratio Glucose POC Glucose 135 H 126 H Calcium Phosphorus Magnesium
[2019-08-06] MEDS: MAGNESIUM OXIDE 400 MG TAB PO SCH ×2 (09:53→20:21)
[2019-08-06 11:05] LABS: Hematocrit (blood only) 23.4 % (42-52); Hemoglobin 7.5 g/dL (14.0-18.0)
[2019-08-06] MEDS: PEPTAMEN 1.5 CAL 1,000 ML BAG PEG SCH (14:32)
[2019-08-06] MEDS: CEFTOLOZANE/TAZOBACTAM 1,500 MG in DEXTROSE 5% 100 ML IV SCH (17:47)
[2019-08-06] MEDS ORDERED: SODIUM CHLORIDE 0.9% 250 ML IV PRN (19:41)
[2019-08-06] MEDS: PANTOprazole 40 MG in SYRINGE 0 ML IV SCH (20:14)
[2019-08-07] MEDS: CHECK FENTANYL PATCH PLACEMENT SCH ×4 (00:31→23:55)
[2019-08-07] MEDS: OXYCODONE HCL IR 5 MG TAB (IMMEDIATE RELEASE) PEG SCH ×5 (00:31→23:55)
[2019-08-07] MEDS: D5W AND NSS 1,000 ML IV SCH ×2 (00:31→13:02)
[2019-08-07] MEDS: CEFTOLOZANE/TAZOBACTAM 1,500 MG in DEXTROSE 5% 100 ML IV SCH ×3 (02:20→18:28)
[2019-08-07] MEDS: LEVOTHYROXINE SODIUM 25 MCG TABLET PEG SCH (06:35)
[2019-08-07 07:48] LABS: Basophils # (auto) 0.01 K/uL (0-0.2); Basophils % (auto) 0.2 %; Eosinophils # (auto) 0.27 K/uL (0-0.5); Eosinophils % (auto) 4.2 %; Hematocrit (blood only) 25.3 % (42-52); Hemoglobin 8.1 g/dL (14.0-18.0); Immature Granulocytes # (auto) 0.02 K/uL (0.00-0.02); Immature Granulocytes % (auto) 0.3 %; Lymphocytes # (auto) 1.56 K/uL (1.2-3.4); Lymphocytes % (auto) 24.2 %; Mean Corpuscular Hemoglobin 28.9 pg (25-34); Mean Corpuscular Volume 90.4 fL (80-100); Mean Platelet Volume 9.5 fL (7.4-10.4); Monocytes # (auto) 0.74 K/uL (0.11-0.59); Monocytes % (auto) 11.5 %; Neutrophils # (auto) 3.84 K/uL (1.4-6.5); Neutrophils % (auto) 59.6 %; Platelet Count 248 K/uL (130-400); RDW Coefficient of Variation 15.7 % (11.5-14.5); White Blood Count 6.44 K/uL (4.8-10.8)
[2019-08-07 08:15] LABS: BUN Creatinine Ratio 39.2 (10-20); Calcium 7.9 mg/dl (8.5-10.1); Creatinine Clr Calc Pharmacy 81.6 ml/min; Est GFR (African American) 104.3; Magnesium 1.3 mg/dl (1.8-2.4); Potassium 3.7 mmol/L (3.5-5.1)
[2019-08-07 08:33] LABS: Ferritin 217.3 ng/ml (8-388)
[2019-08-07] MEDS: AMOXICILLIN SUSP 250 MG/5 ML 100 ML BTL PO SCH ×2 (09:06→20:30)
[2019-08-07] MEDS: SACCHAROMYCES BOULARDII 250 MG CAP PO SCH ×2 (09:07→20:31)
[2019-08-07] MEDS: MAGNESIUM OXIDE 400 MG TAB PO SCH ×2 (09:07→20:31)
[2019-08-07] MEDS: FERROUS SULFATE 325 MG/7.4 ML UDP PEG SCH ×2 (09:07→20:30)
[2019-08-07] MEDS: DOCUSATE SODIUM SYRUP 100 MG/10 ML UDC PEG SCH ×2 (09:07→20:30)
[2019-08-07] MEDS: CEROVITE ADV FORMULA TAB PO SCH (09:08)
[2019-08-07] MEDS: FOLIC ACID 1 MG TAB PO SCH (09:08)
[2019-08-07] MEDS: THIAMINE HCL 100 MG TAB PEG SCH (09:08)
[2019-08-07] MEDS: BACLOFEN 10 MG TAB PO SCH ×3 (09:08→20:31)
[2019-08-07] MEDS: METOPROLOL TARTRATE 25 MG TAB PO SCH ×2 (09:08→20:31)
[2019-08-07] MEDS: DIVALPROEX SODIUM SPRINKLE 125 MG CAP PEG SCH ×2 (09:09→20:30)
[2019-08-07] MEDS: VITAMIN B COMPLEX TAB PO SCH (09:09)
[2019-08-07] MEDS: PROSOURCE NO CARB 30 ML/PKT PEG SCH ×2 (09:10→20:31)
[2019-08-07] MEDS: APIXABAN 5 MG TABLET PO SCH (09:12)
[2019-08-07] MEDS: risperiDONE 0.5 MG TABLET PEG SCH ×2 (09:53→20:32)
[2019-08-07] MEDS: PANTOprazole 40 MG in SYRINGE 0 ML IV SCH (09:53)
[2019-08-07] MEDS: fentaNYL 25 MCG/HR TDSY TD SCH (09:53)
[2019-08-07 10:41] LABS: Folate (Folic Acid) > 24.00 ng/ml (>5.38); Vitamin B12 766 pg/ml (211-911)
[2019-08-07] MEDS: PEPTAMEN 1.5 CAL 1,000 ML BAG PEG SCH (15:45)
--- NOTE | 2019-08-07 15:46 | Hospitalist Progress Note ---
Date of Service August 07, 2019 Assessment & Plan (1) Encephalopathy: Encephalopathy Likely secondary to possible sepsis due to complicated UTI- Enterococcus with Childs catheter and multiple decubiti infected ulcers-- Morganella, E coli, Pseudomonas Was admitted 12 from [facility] with possible change in mental status Improved Communicating at his baseline -- Urine culture: Enterococcus Wound cultures: (+) Morganella, E coli, Pseudomonas -- was on Dapto, Zosyn; continue Ceftolazone/Tazobactam IV Discussed with ID specialist in [facility], Dr. Adam, recommend to continue above antibiotic He recommends orthopedic service evaluation for right hip ulcer, questionable joint or bone involvement May need debridement If joint is involved, recommend at least 4 weeks of IV antibiotic If bone is involved, recommend at least 4 weeks of IV antibiotics Decubitus ulcer: per Dr. Reyes's notes: Pressure ulcers of medial sacrum, stage 3; right lateral hip, stage 4; unstageable right scapular ulcer, left medial lower leg deep tissue injury, likely right lower lateral leg pressure injury; unstageable right medial foot and ankle pressure ulcer; and stage 4 pressure ulcer to left lateral hip Has significant sacral decubiti, stage IV as in the picture Will get CT of the pelvis to rule out any osteomyelitis and/or hip joint effusion Appreciate wound care input and recommendation -- management per #1 will need to ff up with [facility] and [facility] Chronic indwelling Childs catheter: Possible Sepsis secondary to UTI due to indwelling Childs catheter Urine culture -Enterococcus species, sensitive to penicillin and cephalosporin but resistant to quinolones Blood culture -negative Anemia Possible GI bleed Chronic Eliquis use -- Acute on Chronic -- Hg baseline 9-10 Found to be at 7.5 no signs of overt bleeding -- EGD last year: unrevealing --Given 1 unit of packed RBCs Hemoglobin improved to 8.1 Fecal occult blood test positive Will place on Protonix drip, GI consult Hold Eliquis Acute renal failure: Creatinine has been very high at 4.45 from 1.27 on sixth of this month Likely secondary to severe dehydration -- Cell Maker consulted crea back to baseline -- currently on LR Bilateral hydronephrosis Likely complicating acute renal failure Has indwelling Childs catheter -- Discussed with urologist and the consult canceled Since he has been making out urine normally through the Childs there is no need to do any intervention by the urologist at this time Will have an outpatient follow-up appointment Hyperkalemia: Secondary to acute renal impairment --Resolved Severe protein-calorie malnutrition: Continue PEG tube feeding History of DVT --Hold Eliquis History of status post IVC filter placement Schizoid personality disorder: No acute symptoms Hypothyroidism: Continue replacement Chronic systolic CHF (congestive heart failure): Euvolemic HTN (hypertension): continue current medication Anxiety: No acute issue DVT prophylaxis on Eliquis anticipate return to [facility] when medically stable, will need IV antibiotics Subjective Follow-up for encephalopathy, UTI, infected decubitus ulcers Seen sitting up in bed, comfortable, awake, alert oriented, and pleasant Patient states he feels fine overall Denies of breath, chest pain, dizziness, palpitations Noted to have black stools today but patient is taking iron No other symptoms Review of Systems Review of Systems: All systems reviewed & are unremarkable except as noted in HPI & below Physical Exam Physical Exam: General- oriented x 1-2, not in distress, speaks in sentences with no effort or accessory muscle use Eyes- anicteric Neck- no JVD Lungs- clear breath sounds bilaterally Heart- normal rate, regular rhythm; no murmurs Abdomen- normal bowel sounds, nondistended, soft, nontender PEG tube: No issues Extremities-flexed posturing of bilateral lower extremities Wounds inspected: Very minimal discharge noted, no foul odor, no surrounding erythema no pretibial edema, no calf tenderness Neuro- alert, oriented x 1-2; no new gross focal neurologic deficits Skin- warm & dry Results & Data Vital Signs (Past 12 Hours) Vital Signs Temp Pulse Pulse Resp BP BP Pulse Ox 08/07/19 15:18 36.9 C 75 20 162/79 H 98 08/07/19 11:33 36.7 C 76 18 145/74 H 97 08/07/19 08:33 36.8 C 75 18 133/71 95 08/07/19 07:00 65 08/07/19 04:17 36.7 C 80 18 133/65 96
[2019-08-07] MEDS: MAGNESIUM SULFATE / D5W 1 GM/100 ML BAG IV SCH ×2 (16:02→17:26)
[2019-08-07] MEDS: PANTOprazole 40 MG in DEXTROSE 5% 100 ML IV SCH ×2 (16:03→21:02)
[2019-08-08] MEDS: PANTOprazole 40 MG in DEXTROSE 5% 100 ML IV SCH ×4 (01:20→16:32)
[2019-08-08] MEDS: CEFTOLOZANE/TAZOBACTAM 1,500 MG in DEXTROSE 5% 100 ML IV SCH ×3 (02:52→17:29)
[2019-08-08] MEDS: OXYCODONE HCL IR 5 MG TAB (IMMEDIATE RELEASE) PEG SCH ×4 (06:09→23:53)
[2019-08-08] MEDS: LEVOTHYROXINE SODIUM 25 MCG TABLET PEG SCH (06:09)
[2019-08-08 07:21] LABS: Basophils # (auto) 0.02 K/uL (0-0.2); Basophils % (auto) 0.3 %; Eosinophils # (auto) 0.43 K/uL (0-0.5); Eosinophils % (auto) 6.4 %; Hematocrit (blood only) 25.9 % (42-52); Hemoglobin 8.6 g/dL (14.0-18.0); Immature Granulocytes # (auto) 0.03 K/uL (0.00-0.02); Immature Granulocytes % (auto) 0.4 %; Lymphocytes # (auto) 1.88 K/uL (1.2-3.4); Mean Corpuscular Hemoglobin 29.2 pg (25-34); Mean Corpuscular Hgb Conc 33.2 g/dL (32-36); Mean Corpuscular Volume 87.8 fL (80-100); Mean Platelet Volume 9.6 fL (7.4-10.4); Monocytes % (auto) 8.9 %; Neutrophils # (auto) 3.75 K/uL (1.4-6.5); Platelet Count 253 K/uL (130-400); RDW Coefficient of Variation 15.7 % (11.5-14.5); RDW Standard Deviation 50.2 fL (36.4-46.3); Red Blood Count 2.95 M/uL (4.7-6.1); White Blood Count 6.71 K/uL (4.8-10.8)
[2019-08-08 07:55] LABS: BUN Creatinine Ratio 34.4 (10-20); Calcium 8.2 mg/dl (8.5-10.1); Creatinine Clr Calc Pharmacy 84.5 ml/min; Est GFR (African American) 105.5; Magnesium 1.6 mg/dl (1.8-2.4); Potassium 3.9 mmol/L (3.5-5.1)
[2019-08-08] MEDS: CHECK FENTANYL PATCH PLACEMENT SCH ×2 (08:30→16:00)
[2019-08-08] MEDS: THIAMINE HCL 100 MG TAB PEG SCH (09:15)
[2019-08-08] MEDS: MAGNESIUM OXIDE 400 MG TAB PO SCH (09:15)
[2019-08-08] MEDS: FERROUS SULFATE 325 MG/7.4 ML UDP PEG SCH ×2 (09:16→21:11)
[2019-08-08] MEDS: METOPROLOL TARTRATE 25 MG TAB PO SCH ×2 (09:16→21:30)
[2019-08-08] MEDS: FOLIC ACID 1 MG TAB PO SCH (09:16)
[2019-08-08] MEDS: BACLOFEN 10 MG TAB PO SCH ×3 (09:16→21:29)
[2019-08-08] MEDS: CEROVITE ADV FORMULA TAB PO SCH (09:16)
[2019-08-08] MEDS: risperiDONE 0.5 MG TABLET PEG SCH ×2 (09:18→21:32)
[2019-08-08] MEDS: SACCHAROMYCES BOULARDII 250 MG CAP PO SCH ×2 (09:18→21:31)
[2019-08-08] MEDS: PROSOURCE NO CARB 30 ML/PKT PEG SCH ×2 (09:18→21:12)
[2019-08-08] MEDS: VITAMIN B COMPLEX TAB PO SCH (09:18)
[2019-08-08] MEDS: DIVALPROEX SODIUM SPRINKLE 125 MG CAP PEG SCH ×2 (09:19→21:27)
[2019-08-08] MEDS: DOCUSATE SODIUM SYRUP 100 MG/10 ML UDC PEG SCH ×2 (09:19→21:10)
--- NOTE | 2019-08-08 11:12 | Gastrointestinal Consultation ---
Date of Consultation August 08, 2019 Assessment & Plan (1) Anemia: Mr. Winters passed one loss black BM and experienced a drop in Hb from 8.3 ->7.6. BUN is mildly elevated at 30. He likely has a slow UGI bleed. Would go forward with EGD today, but pt is not NPO. Please monitor for further blood loss over the weekend. We will reconsider EGD on Sunday or Sunday. He does have multiple comorbidities which makes him somewhat higher risk for sedation, so I may be ko to approach conservatively. For now, continue to hold Eliquis. Would need NOK's consent to go forward with endoscopy. GI will watch peripherally. Present on Admission?: Yes Supervising Physician Co-Signing Physician Notes I saw and evaluated the patient. We were consulted for worsening anemia and a question of dark stool. The patient had one small dark stool yesterday without recurrence. We had discussed performing an upper endoscopy today however, it appears that the patient was being given his feeds through his feeding tube. Physical examination Elderly appearing male unable to give any historical information due to mental status Impression: Patient with a long history of feeding tube use due to altered mental status with a question of dark stool x1 yesterday. Ideally we could have done an upper endoscopy today however, it appears that this is not possible due to ongoing feeding. Given this and his medical history perhaps we could continue with watchful waiting over the weekend and reevaluate to determine if a procedure is truly needed. Recommendations Avoid anticoagulants and antiplatelet agents Protonix 40 mg 1 time daily Please call with any questions or concerns History of Present Illness Reason for Consultation: GI Bleed Requesting Physician: Mr. Ap Winters is a 74 yr old male with Dementia, recurrent UTIs, renal insufficiency, anemia, osteomyelitis, multiple decubitus ulcer, anxiety, Schizophrenia, hx of DVT, dyslipidemia, chronic pain, GERD, hypothyroidism who has a PEG for dysphagia placed in November. He lives at the [facility] and was sent here on 07/31 for altered mental status. Yesterday morning, he passed 1 black loose bowel movement. On arrival, hemoglobin was 7.6 and dropped further to 7.5, down from a baseline of 9.5-10. He received 1 unit of RBCs and hemoglobin this morning is 8.6 . Nursing tells us that he passed 1 black smear yesterday and that Eliquis is held. On exam, he is confused does not appear uncomfortable and is not uncomfortable on palpation of the abdomen and is currently receiving PEG tube feedings. Nursing tells us that he has not had a further bowel movement since yesterday and that BUN is 26. Attending Physician: Parrish Covington MD Allergies Allergy/AdvReac Type Severity Reaction Status Date / Time iodine Allergy Unknown Unknown Verified 07/31/19 03:49 onion AdvReac Intermediate vomitting Verified 07/31/19 03:49 Home Medications Home Medications Medication Instructions Recorded Confirmed Type B [id number] 1 tab FEEDING TUBE DAILY 03/14/19 07/31/19 History Eliquis 5 mg PO BID 03/14/19 07/31/19 History acetaminophen [Tylenol] 650 mg PO Q4 PRN MDD 3gm/24hr 03/14/19 07/31/19 History baclofen 5 mg PO TID 03/14/19 07/31/19 History bisacodyl [Dulcolax (bisacodyl)] 10 mg NH UD PRN 03/14/19 07/31/19 History divalproex 500 mg PO BID 03/14/19 07/31/19 History docusate sodium 100 mg PO BID 03/14/19 07/31/19 History fentanyl [Duragesic] 1 patch TOPICAL [id number] 03/14/19 07/31/19 History folic acid 1 mg PO DAILY 03/14/19 07/31/19 History levothyroxine [Synthroid] 25 mcg PO DAILY 03/14/19 07/31/19 History melatonin 3 mg PO HS 03/14/19 07/31/19 History metoprolol succinate [Toprol XL] 25 mg PO UD 03/14/19 07/31/19 History oxycodone [Roxicodone] 5 mg PO Q6H 03/14/19 07/31/19 History thiamine HCl (vitamin B1) 100 mg PO DAILY 03/14/19 07/31/19 History tramadol [Ultram] 50 mg PO Q6 PRN 03/14/19 07/31/19 History cephalexin [Keflex] 500 mg FEEDING TUBE QID 07/29/19 07/31/19 History magnesium hydroxide [Milk of 30 ml FEEDING TUBE DAILY PRN 07/29/19 07/31/19 History Magnesia] risperidone [Risperdal] 0.5 mg FEEDING TUBE BID 07/29/19 07/31/19 History Saccharomyces boulardii 250 mg PO BID 07/31/19 07/31/19 History acetaminophen 650 mg PO Q6H PRN MDD 3gm/24hr 07/31/19 07/31/19 History esomeprazole magnesium [Nexium 40 mg PO DAILY 07/31/19 07/31/19 History Packet] ferrous sulfate 325 mg FEEDING TUBE BID 07/31/19 07/31/19 History multivit,stress formula-zinc 1 tab PO DAILY 07/31/19 07/31/19 History [Stress Formula with Zinc] nut.tx. metabolic disorder,soy 1 ea FEEDING TUBE UD 07/31/19 07/31/19 History [Perative] protein supplement 1 ea PO BID 07/31/19 07/31/19 History Patient History Medical History Anemia (Chronic) Anxiety (Chronic) Bacteremia Chronic pain (Chronic) Chronic systolic CHF (congestive heart failure) (Chronic) Coronary artery disease (Chronic) s/p VA 2007 Decubitus ulcer (Chronic) multiple, chronic Depression Dyslipidemia (Chronic) Esophagitis Childs catheter in place GERD (gastroesophageal reflux disease) (Chronic) History of Clostridium difficile colitis (Chronic) History of DVT (deep vein thrombosis) (Chronic) LLE 2017 History of electroconvulsive therapy (Chronic) History of ESBL E. 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 Childs cath. Wound infection (Acute) Pseudomonas PEG site October 2018 Surgical History History of appendectomy (Chronic) S/P PICC central line placement Status post insertion of percutaneous endoscopic gastrostomy (PEG) tube (Chronic) Sep 2018 Family History Other Family history non-contributory Social History Preferred Language: Namibian Communication Ability: Impaired Teletypewriter Operator Required: No Beliefs That Will Affect Care: None marital status: Single Current Living Situation: Intermediate Current Living Situation Comment: [place] Feels Safe at Home: Declines to Answer Smoking Status: Unknown if ever smoked Review of Systems Review of Systems: Pt denies any discomfort, but is not able to give a history. He is awake and alert, but not oriented and does not provide meaningful answers to questions, also contradicts his answers. Physical Exam Constitutional: WD/WN, vitals as above + thin and + behavioral limitations Eyes: PERRL, conjunctivae normal, anicteric sclerae ENMT: external ear and nose normal, oropharynx normal Neck: trachea midline, no thyromegaly Respiratory: normal respiratory effort, lungs clear to auscultation Cardiovascular: RRR, no murmur, no edema Gastrointestinal (Abdomen): Percussion/Palpation: abdomen soft; abdomen nontender PEG tube intact. Skin: + lesion (skin care dressings intact); no jaundice and no ecchymosis Neurologic: PERRL, EOMI, accommodation nl, no face palsy, no dysarthria + confused Psychiatric: Orientation: alert and cooperative; + not oriented to place Motor Behavior: n tremor Affect: + irritable affect Results & Data Vital Signs (Past 12 Hours) Vital Signs Temp Pulse Pulse Resp BP Pulse Ox 08/08/19 07:12 36.6 C 85 20 142/75 H 96 08/08/19 07:00 66 08/08/19 04:25 36.9 C 76 18 139/74 96 08/08/19 00:33 69 08/07/19 23:19 36.9 C 76 18 151/75 H 96 Laboratory Results Hb 8.6 after one unit of RBCs BUN 30, Cr 0.7. Diagnostic Findings CT abd/pelvis without contrast on 07/31/19: 1. Childs catheter is noted within a moderately distended urinary bladder. Additionally, there is mild to moderate symmetric bilateral hydroureteronephrosis. Findings are concerning for possible Childs catheter dysfunction. 2. Extensive fecal retention. Wall thickening with mild adjacent stranding involves the rectum suspicious for stercoral proctitis. 3. No bowel obstruction, pneumatosis or pneumoperitoneum. 4. Trace left pleural effusion with linear bibasilar consolidative opacities suggestive of atelectasis. 5. Decubitus ulcer of the right gluteal tissues redemonstrated with partially air-filled tract extending towards the posterior aspect of the right femoral acetabular joint. 6. Chronic osseous deformities of the hips and pelvis as above. 7. Unchanged 10 mm solid nodule of the inferior segment lingula, stable from 08/12/2018. 8. Additional findings as above. (1) Anemia Anemia type: other cause Other causes of anemia: nutritional, protein deficiency Qualified Code(s): D53.0 - Protein deficiency anemia
[2019-08-08] MEDS: AMOXICILLIN SUSP 250 MG/5 ML 100 ML BTL PO SCH ×2 (12:02→21:11)
[2019-08-08] MEDS: PEPTAMEN 1.5 CAL 1,000 ML BAG PEG SCH (14:32)
--- NOTE | 2019-08-08 19:14 | Hospitalist Progress Note ---
Date of Service August 08, 2019 Assessment & Plan (1) Encephalopathy: (1) Encephalopathy: Encephalopathy Likely secondary to possible sepsis due to complicated UTI- Enterococcus with Childs catheter and multiple decubiti infected ulcers-- Morganella, E coli, Pseudomonas Was admitted 12 from [facility] with possible change in mental status Improved Communicating at his baseline -- Urine culture: Enterococcus Wound cultures: (+) Morganella, E coli, Pseudomonas -- was on Dapto, Zosyn; continue Ceftolazone/Tazobactam IV Discussed with ID specialist in [facility], Dr. Adam, recommend to continue above antibiotic He recommends orthopedic service evaluation for right hip ulcer, questionable joint or bone involvement May need debridement If joint is involved, recommend at least 4 weeks of IV antibiotic If bone is involved, recommend at least 4 weeks of IV antibiotics 08/08/2019 Remaining stable overall Continue IV ceftolozane/tazobactam Awaiting orthopedic evaluation for possible debridement and determination whether further also has joint and/or bone involvement Decubitus ulcer: per Dr. Reyes's notes: Pressure ulcers of medial sacrum, stage 3; right lateral hip, stage 4; unstageable right scapular ulcer, left medial lower leg deep tissue injury, like ly right lower lateral leg pressure injury; unstageable right medial foot and ankle pressure ulcer; and stage 4 pressure ulcer to left lateral hip Has significant sacral decubiti, stage IV as in the picture Will get CT of the pelvis to rule out any osteomyelitis and/or hip joint effusion Appreciate wound care input and recommendation -- management per #1 will need to ff up with [facility] Chronic indwelling Childs catheter: Possible Sepsis secondary to UTI due to indwelling Childs catheter Urine culture -Enterococcus species, sensitive to penicillin and cephalosporin but resistant to quinolones Blood culture -negative Continue ceftolozane/tazobactam Anemia Possible GI bleed, possible gastritis Chronic Eliquis use -- Acute on Chronic -- Hg baseline 9-10 Found to be at 7.5 no signs of overt bleeding -- EGD last year: unrevealing --Given 1 unit of packed RBCs Hemoglobin improved to 8.5 Fecal occult blood test positive Literacy Tutor consulted, recommend continue Protonix daily, close monitoring, defer EGD for now Unless hemoglobin continues to trend down Change Protonix drip to lansoprazole daily per GI Continue to monitor hemoglobin Acute renal failure: Creatinine has been very high at 4.45 from 1.27 on sixth of this month Likely secondary to severe dehydration Was given IV fluids -- Busboy consulted crea back to baseline Bilateral hydronephrosis Likely complicating acute renal failure Has indwelling Childs catheter -- Discussed with urologist and the consult canceled Since he has been making urine normally through the Childs there is no need to do any intervention by the urologist at this time Will have an outpatient follow-up appointment Hyperkalemia Secondary to acute renal impairment --Resolved Severe protein-calorie malnutrition: Continue PEG tube feeding Occupational Nurse on board History of DVT --Hold Eliquis in light of anemia, possible GI bleed History of status post IVC filter placement Schizoid personality disorder: No acute symptoms Hypothyroidism: Continue replacement Chronic systolic CHF (congestive heart failure): Euvolemic HTN (hypertension): continue current medication Anxiety: No acute issue DVT prophylaxis Eliquis on hold for now in light of anemia, possible GI bleed Patient has IVC filter, presence of wound preclude SCDs anticipate return to [facility] when medically stable, will need IV antibiotics Attempted to call patient's brother but he is not home as per family, requested to obtain cell phone number but family member does not have cell phone number Requested for patient's brother to call [facility] for update and to discuss plan of care Subjective Follow-up for infected decubitus ulcers, UTI, anemia Seen resting in bed, awake and alert, comfortable, pleasant Oriented x2, answers questions appropriately States he feels fine overall denies pain No abdominal pain, nausea, no noted melena or hematochezia today per i-STAT Denies pain on the sublingual ulcer sites No other symptoms Review of Systems Review of Systems: All systems reviewed & are unremarkable except as noted in HPI & below Physical Exam Physical Exam: General- oriented x 1-2,not in distress, speaks in sentences with no effort or accessory muscle use Eyes- anicteric Neck- no JVD Lungs- clear breath sounds bilaterally, no wheezing Heart- normal rate, regular rhythm; no murmurs Abdomen- normal bowel sounds, nondistended, soft, nontender Extremities- no pretibial edema, no calf tenderness Flexed posturing of lower extremities Neuro- alert, oriented x 1-2; no new gross focal neurologic deficits Skin- warm & dry Results & Data Vital Signs (Past 12 Hours) Vital Signs Temp Pulse Pulse Resp BP BP Pulse Ox 08/08/19 18:37 36.6 C 92 H 18 157/76 H 08/08/19 14:30 36.4 C L 75 18 158/77 H 98 08/08/19 14:20 68 08/08/19 11:16 36.7 C 82 18 156/78 H 97 08/08/19 07:12 36.6 C 85 20 142/75 H 96 Laboratory Results Laboratory Results - last 24 hr 08/07/19 08/08/19 08/08/19 19:17 00:43 06:33 WBC RBC Hgb Hct MCV MCH MCHC RDW Std Deviation RDW Coeff of Lucila Plt Count MPV Immature Gran % (Auto) Neut % (Auto) Lymph % (Auto) [place] % (Auto) Eos % (Auto) Baso % (Auto) Immature Gran # (Auto) Neut # (Auto) Lymph # (Auto) [place] # (Auto) Eos # (Auto) Baso # (Auto) Sodium Potassium Chloride Carbon Dioxide Anion Gap BUN Creatinine Est Cr Clr Drug Dosing Est GFR ( Amer) Est GFR (Non-Af Amer) BUN/Creatinine Ratio Glucose POC Glucose 137 H 97 110 H Calcium Magnesium 08/08/19 08/08/19 08/08/19 06:55 06:55 12:53 WBC 6.71 RBC 2.95 L Hgb 8.6 L Hct 25.9 L MCV 87.8 MCH 29.2 MCHC 33.2 RDW Std Deviation 50.2 H RDW Coeff of Lucila 15.7 H Plt Count 253 MPV 9.6 Immature Gran % (Auto) 0.4 Neut % (Auto) 56.0 Lymph % (Auto) 28.0 [place] % (Auto) 8.9 Eos % (Auto) 6.4 Baso % (Auto) 0.3 Immature Gran # (Auto) 0.03 H Neut # (Auto) 3.75 Lymph # (Auto) 1.88 [place] # (Auto) 0.60 H Eos # (Auto) 0.43 Baso # (Auto) 0.02 Sodium 137 Potassium 3.9 Chloride 105 Carbon Dioxide 25 Anion Gap 6.0 BUN 26 H Creatinine 0.75 Est Cr Clr Drug Dosing 84.5 Est GFR ( Amer) 105.5 Est GFR (Non-Af Amer) 91.0 BUN/Creatinine Ratio 34.4 H Glucose 101 H POC Glucose 123 H Calcium 8.2 L Magnesium 1.6 L 08/08/19 18:59 WBC RBC Hgb Hct MCV MCH MCHC RDW Std Deviation RDW Coeff of Lucila Plt Count MPV Immature Gran % (Auto) Neut % (Auto) Lymph % (Auto) [place] % (Auto) Eos % (Auto) Baso % (Auto) Immature Gran # (Auto) Neut # (Auto) Lymph # (Auto) [place] # (Auto) Eos # (Auto) Baso # (Auto) Sodium Potassium Chloride Carbon Dioxide Anion Gap BUN Creatinine Est Cr Clr Drug Dosing Est GFR ( Amer) Est GFR (Non-Af Amer) BUN/Creatinine Ratio Glucose POC Glucose 127 H Calcium Magnesium
[2019-08-08] MEDS: LANSOPRAZOLE 30 MG SOLTAB PEG SCH (21:06)
[2019-08-08] MEDS: MAGNESIUM SULFATE / D5W 1 GM/100 ML BAG IV SCH ×2 (21:48→22:50)
[2019-08-09] MEDS: CHECK FENTANYL PATCH PLACEMENT SCH ×3 (00:09→15:48)
[2019-08-09] MEDS ORDERED: GLUCAGON FOR INJ 1 MG VIAL SQ PRN (00:42)
[2019-08-09] MEDS ORDERED: DEXTROSE 50% 50 ML SYRINGE IV PRN (00:42)
[2019-08-09] MEDS ORDERED: GLUCOSE 10 TABS/TUBE PO PRN (00:42)
[2019-08-09] MEDS ORDERED: INSULIN GLARGINE SOLOSTAR 100 UNITS/ML 3 ML PEN SC STA (00:42)
[2019-08-09] MEDS ORDERED: CARBOHYDRATES FOR HYPOGLYCEMIA PO PRN (00:42)
[2019-08-09] MEDS ORDERED: GLUCOSE 40% GEL 15 GM TUBE PO PRN (00:42)
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
[2019-08-09] MEDS: CEFTOLOZANE/TAZOBACTAM 1,500 MG in DEXTROSE 5% 100 ML IV SCH ×3 (02:00→18:23)
[2019-08-09] MEDS: INSULIN ASPART 100 UNITS/ML 3 ML PEN SC SCH ×4 (02:05→18:14)
[2019-08-09] MEDS: OXYCODONE HCL IR 5 MG TAB (IMMEDIATE RELEASE) PEG SCH ×3 (06:05→18:21)
[2019-08-09] MEDS: LEVOTHYROXINE SODIUM 25 MCG TABLET PEG SCH (06:05)
[2019-08-09 07:45] LABS: Basophils # (auto) 0.02 K/uL (0-0.2); Basophils % (auto) 0.3 %; Eosinophils # (auto) 0.48 K/uL (0-0.5); Eosinophils % (auto) 6.9 %; Hematocrit (blood only) 26.9 % (42-52); Hemoglobin 8.6 g/dL (14.0-18.0); Immature Granulocytes # (auto) 0.03 K/uL (0.00-0.02); Immature Granulocytes % (auto) 0.4 %; Lymphocytes # (auto) 1.53 K/uL (1.2-3.4); Mean Corpuscular Hemoglobin 28.7 pg (25-34); Mean Corpuscular Volume 89.7 fL (80-100); Mean Platelet Volume 9.4 fL (7.4-10.4); Monocytes # (auto) 0.63 K/uL (0.11-0.59); Monocytes % (auto) 9.1 %; Neutrophils # (auto) 4.26 K/uL (1.4-6.5); Neutrophils % (auto) 61.3 %; Platelet Count 299 K/uL (130-400); RDW Coefficient of Variation 15.7 % (11.5-14.5); RDW Standard Deviation 50.4 fL (36.4-46.3); White Blood Count 6.95 K/uL (4.8-10.8)
[2019-08-09 08:12] LABS: Estimated Average Glucose 117 mg/dl; Hemoglobin A1C 5.7 % (4.5-5.6)
[2019-08-09 08:23] LABS: Calcium 8.1 mg/dl (8.5-10.1); Creatinine Clr Calc Pharmacy 87.1 ml/min; Est GFR (African American) 107.3; Est GFR (Non-African American) 92.5; Magnesium 1.8 mg/dl (1.8-2.4); Potassium 3.8 mmol/L (3.5-5.1)
[2019-08-09] MEDS: AMOXICILLIN SUSP 250 MG/5 ML 100 ML BTL PO SCH ×2 (10:41→21:55)
[2019-08-09] MEDS: risperiDONE 0.5 MG TABLET PEG SCH ×2 (10:44→21:14)
[2019-08-09] MEDS: BACLOFEN 10 MG TAB PO SCH ×3 (10:44→21:11)
[2019-08-09] MEDS: FERROUS SULFATE 325 MG/7.4 ML UDP PEG SCH ×2 (10:44→21:10)
[2019-08-09] MEDS: THIAMINE HCL 100 MG TAB PEG SCH (10:44)
[2019-08-09] MEDS: LANSOPRAZOLE 30 MG SOLTAB PEG SCH ×2 (10:45→21:13)
[2019-08-09] MEDS: METOPROLOL TARTRATE 25 MG TAB PO SCH ×2 (10:45→21:12)
[2019-08-09] MEDS: CEROVITE ADV FORMULA TAB PO SCH (10:45)
[2019-08-09] MEDS: DIVALPROEX SODIUM SPRINKLE 125 MG CAP PEG SCH ×2 (10:46→21:10)
[2019-08-09] MEDS: DOCUSATE SODIUM SYRUP 100 MG/10 ML UDC PEG SCH ×2 (10:46→21:09)
[2019-08-09] MEDS: FOLIC ACID 1 MG TAB PO SCH (10:47)
[2019-08-09] MEDS: PROSOURCE NO CARB 30 ML/PKT PEG SCH ×2 (10:47→21:14)
[2019-08-09] MEDS: VITAMIN B COMPLEX TAB PO SCH (10:47)
[2019-08-09] MEDS: SACCHAROMYCES BOULARDII 250 MG CAP PO SCH ×2 (10:48→21:11)
[2019-08-09] MEDS: PEPTAMEN 1.5 CAL 1,000 ML BAG PEG SCH (13:24)
--- NOTE | 2019-08-09 14:21 | Hospitalist Progress Note ---
Date of Service August 09, 2019 Assessment & Plan (1) Encephalopathy: (1) Encephalopathy: Encephalopathy Likely secondary to possible sepsis due to complicated UTI- Enterococcus with Childs catheter and multiple decubiti infected ulcers-- Morganella, E coli, Pseudomonas Was admitted 12 from [facility] with possible change in mental status Improved Communicating at his baseline -- Urine culture: Enterococcus Wound cultures: (+) Morganella, E coli, Pseudomonas -- was on Dapto, Zosyn; continue Ceftolazone/Tazobactam IV Discussed with ID specialist in [facility], Dr. Adam, recommend to continue above antibiotic He recommends orthopedic service evaluation for right hip ulcer, questionable joint or bone involvement May need debridement If joint is involved, recommend at least 4 weeks of IV antibiotic If bone is involved, recommend at least 4 weeks of IV antibiotics 08/09/2019 Patient seen by orthopedic service, recommend aspiration of right hip joint Discussed with radiology service, as per Ortho today, and for aspiration of right hip joint on Sunday Continues to remain stable overall Continue IV ceftolozane/tazobactam Decubitus ulcer: per Dr. Reyes's notes: Pressure ulcers of medial sacrum, stage 3; right lateral hip, stage 4; unstageable right scapular ulcer, left medial lower leg deep tissue injury, likely right lower lateral leg pressure injury; unstageable right medial foot and ankle pressure ulcer; and stage 4 pressure ulcer to left lateral hip Has significant sacral decubiti, stage IV as in the picture Will get CT of the pelvis to rule out any osteomyelitis and/or hip joint effusion Appreciate wound care input and recommendation -- management per #1 will need to ff up with [facility] and ID [facility] Chronic indwelling Childs catheter: Possible Sepsis secondary to UTI due to indwelling Childs catheter Urine culture -Enterococcus species, sensitive to penicillin and cephalosporin but resistant to quinolones Blood culture -negative Continue ceftolozane/tazobactam Anemia Possible GI bleed, possible gastritis Chronic Eliquis use -- Acute on Chronic -- Hg baseline 9-10 Found to be at 7.5 no signs of overt bleeding -- EGD last year: unrevealing --Given 1 unit of packed RBCs Fecal occult blood test positive Hemoglobin stable around 8 Sweet Potato Disintegrator consulted, recommend continue Protonix daily, close monitoring, defer EGD for now Unless hemoglobin continues to trend down Change Protonix drip to lansoprazole daily per GI Continue to monitor hemoglobin Acute renal failure: Creatinine has been very high at 4.45 from 1.27 on sixth of this month Likely secondary to severe dehydration Was given IV fluids -- Global Supply Chain Director consulted crea back to baseline Bilateral hydronephrosis Likely complicating acute renal failure Has indwelling Childs catheter -- Discussed with urologist and the consult canceled Since he has been making urine normally through the Childs there is no need to do any intervention by the urologist at this time Will have an outpatient follow-up appointment Hyperkalemia Secondary to acute renal impairment --Resolved Severe protein-calorie malnutrition: Continue PEG tube feeding Forestry Pilot on board History of DVT --Hold Eliquis in light of anemia, possible GI bleed History of status post IVC filter placement Schizoid personality disorder: No acute symptoms Hypothyroidism: Continue replacement Chronic systolic CHF (congestive heart failure): Euvolemic HTN (hypertension): continue current medication Anxiety: No acute issue DVT prophylaxis Eliquis on hold for now in light of anemia, possible GI bleed Patient has IVC filter, presence of wound preclude SCDs anticipate return to [facility] when medically stable, will need IV antibiotics Attempted to call patient's brother but he is not home as per family, requested to obtain cell phone number but family member does not have cell phone number Requested for patient's brother to [facility] and to discuss plan of care Subjective Follow-up for infected decubitus ulcers Seen resting in bed, comfortable, watching TV, not in distress Denies pain in his wounds or in the abdomen No melena or hematochezia Denies other symptoms Review of Systems Review of Systems: All systems reviewed & are unremarkable except as noted in HPI & below Physical Exam Physical Exam: General- oriented x 2, not in distress, speaks in sentences with no effort or accessory muscle use Eyes- anicteric Neck- no JVD Lungs- clear breath sounds, no crackles or wheezing bilaterally Heart- normal rate, regular rhythm; no murmurs Abdomen- normal bowel sounds, nondistended, soft, nontender Extremities- no pretibial edema, no calf tenderness Dressings of levels in place, no bleeding Neuro- alert, oriented x 2; no gross focal neurologic deficits Skin- warm & dry Results & Data Vital Signs (Past 12 Hours) Vital Signs Temp Pulse Pulse Resp BP BP Pulse Ox 08/09/19 11:00 36.9 C 91 H 18 133/77 96 08/09/19 07:26 36.6 C 81 20 122/69 95 08/09/19 07:00 85 08/09/19 04:21 72 08/09/19 04:00 36.4 C L 85 18 146/81 H 98
--- NOTE | 2019-08-09 14:56 | Gastroenterology Progress Note ---
Date of Service August 09, 2019 Assessment & Plan (1) Anemia: H/H stable without reported overt GI bleeding. Continue current therapy Continue current tube feeds. Subjective No GI complaints at present. No melena or hematemesis overnight. H/H remains stable. Tolerating tube feeds, without reports of diarrhea. Physical Exam Constitutional: + ill appearing chronic Respiratory: normal respiratory effort, lungs clear to auscultation Cardiovascular: RRR, no murmur, no edema Gastrointestinal (Abdomen): normal bowel sounds, soft, nontender, no hepatosplenomegaly PEG tube in place no leakage Results & Data Vital Signs (Past 12 Hours) Vital Signs Temp Pulse Pulse Resp BP BP Pulse Ox 08/09/19 14:39 36.6 C 79 20 132/72 98 08/09/19 11:00 36.9 C 91 H 18 133/77 96 08/09/19 07:26 36.6 C 81 20 122/69 95 08/09/19 07:00 85 08/09/19 04:21 72 08/09/19 04:00 36.4 C L 85 18 146/81 H 98 PG Care Time/CCT Total # of Minutes Spent Total Time Spent with Patient: Total time spent is greater than 50% in coordination of care (as documented) at patient's floor/unit and/or counseling patient: (1) Anemia Anemia type: other cause Other causes of anemia: nutritional, protein deficiency Qualified Code(s): D53.0 - Protein deficiency anemia
[2019-08-10] MEDS: CHECK FENTANYL PATCH PLACEMENT SCH ×3 (00:21→17:02)
[2019-08-10] MEDS: OXYCODONE HCL IR 5 MG TAB (IMMEDIATE RELEASE) PEG SCH ×4 (00:21→17:48)
[2019-08-10] MEDS: INSULIN ASPART 100 UNITS/ML 3 ML PEN SC SCH ×4 (00:46→17:49)
[2019-08-10] MEDS: CEFTOLOZANE/TAZOBACTAM 1,500 MG in DEXTROSE 5% 100 ML IV SCH ×3 (02:05→18:17)
[2019-08-10] MEDS: LEVOTHYROXINE SODIUM 25 MCG TABLET PEG SCH (05:43)
[2019-08-10 07:22] LABS: Basophils # (auto) 0.03 K/uL (0-0.2); Basophils % (auto) 0.4 %; Eosinophils % (auto) 6.7 %; Hematocrit (blood only) 28.2 % (42-52); Hemoglobin 9.2 g/dL (14.0-18.0); Immature Granulocytes # (auto) 0.04 K/uL (0.00-0.02); Immature Granulocytes % (auto) 0.5 %; Lymphocytes # (auto) 1.82 K/uL (1.2-3.4); Lymphocytes % (auto) 24.5 %; Mean Corpuscular Hemoglobin 29.4 pg (25-34); Mean Corpuscular Hgb Conc 32.6 g/dL (32-36); Mean Corpuscular Volume 90.1 fL (80-100); Mean Platelet Volume 9.1 fL (7.4-10.4); Monocytes # (auto) 0.75 K/uL (0.11-0.59); Monocytes % (auto) 10.1 %; Neutrophils # (auto) 4.28 K/uL (1.4-6.5); Neutrophils % (auto) 57.8 %; Platelet Count 332 K/uL (130-400); RDW Coefficient of Variation 16.1 % (11.5-14.5); RDW Standard Deviation 52.1 fL (36.4-46.3); Red Blood Count 3.13 M/uL (4.7-6.1); White Blood Count 7.42 K/uL (4.8-10.8)
[2019-08-10 07:51] LABS: BUN Creatinine Ratio 43.3 (10-20); Calcium 8.5 mg/dl (8.5-10.1); Creatinine Clr Calc Pharmacy 87.2 ml/min; Est GFR (African American) 110.5; Est GFR (Non-African American) 95.3; Magnesium 1.7 mg/dl (1.8-2.4); Potassium 4.1 mmol/L (3.5-5.1)
[2019-08-10] MEDS: FERROUS SULFATE 325 MG/7.4 ML UDP PEG SCH ×2 (09:31→20:54)
[2019-08-10] MEDS: SACCHAROMYCES BOULARDII 250 MG CAP PO SCH ×2 (09:33→20:54)
[2019-08-10] MEDS: METOPROLOL TARTRATE 25 MG TAB PO SCH ×2 (09:33→20:56)
[2019-08-10] MEDS: LANSOPRAZOLE 30 MG SOLTAB PEG SCH ×2 (09:34→20:57)
[2019-08-10] MEDS: risperiDONE 0.5 MG TABLET PEG SCH ×2 (09:35→20:57)
[2019-08-10] MEDS: THIAMINE HCL 100 MG TAB PEG SCH (09:35)
[2019-08-10] MEDS: VITAMIN B COMPLEX TAB PO SCH (09:35)
[2019-08-10] MEDS: CEROVITE ADV FORMULA TAB PO SCH (09:37)
[2019-08-10] MEDS: BACLOFEN 10 MG TAB PO SCH ×3 (09:37→20:55)
[2019-08-10] MEDS: DOCUSATE SODIUM SYRUP 100 MG/10 ML UDC PEG SCH ×2 (09:38→20:53)
[2019-08-10] MEDS: INSULIN GLARGINE SOLOSTAR 100 UNITS/ML 3 ML PEN SQ SCH (09:39)
[2019-08-10] MEDS: DIVALPROEX SODIUM SPRINKLE 125 MG CAP PEG SCH ×2 (09:39→20:54)
[2019-08-10] MEDS: PROSOURCE NO CARB 30 ML/PKT PEG SCH ×2 (09:40→20:57)
[2019-08-10] MEDS: fentaNYL 25 MCG/HR TDSY TD SCH (10:15)
[2019-08-10] MEDS ORDERED: MAGNESIUM HYDROXIDE SUSP 30 ML UDC PO PRN (12:11)
[2019-08-10] MEDS: PEPTAMEN 1.5 CAL 1,000 ML BAG PEG SCH (13:05)
--- NOTE | 2019-08-10 14:56 | Hospitalist Progress Note ---
Date of Service August 10, 2019 Assessment & Plan (1) Encephalopathy: (1) Encephalopathy: Encephalopathy Likely secondary to possible sepsis due to complicated UTI- Enterococcus with Childs catheter and multiple decubiti infected ulcers-- Morganella, E coli, Pseudomonas Was admitted 12 from [facility] with possible change in mental status Improved Communicating at his baseline -- Urine culture: Enterococcus Wound cultures: (+) Morganella, E coli, Pseudomonas -- was on Dapto, Zosyn; continue Ceftolazone/Tazobactam IV Discussed with ID specialist in [facility], Dr. Adam, recommend to continue above antibiotic He recommends orthopedic service evaluation for right hip ulcer, questionable joint or bone involvement May need debridement If joint is involved, recommend at least 4 weeks of IV antibiotic If bone is involved, recommend at least 4 weeks of IV antibiotics 08/10/2019 Patient seen by orthopedic service, recommend aspiration of right hip joint--> planned tomorrow by Radiology SV stable Continue IV ceftolozane/tazobactam Decubitus ulcer: per Dr. Reyes's notes: Pressure ulcers of medial sacrum, stage 3; right lateral hip, stage 4; unstageable right scapular ulcer, left medial lower leg deep tissue injury, likely right lower lateral leg pressure injury; unstageable right medial foot and ankle pressure ulcer; and stage 4 pressure ulcer to left lateral hip Has significant sacral decubiti, stage IV as in the picture Will get CT of the pelvis to rule out any osteomyelitis and/or hip joint effusion Appreciate wound care input and recommendation -- management per #1 will need to ff up with [facility] Chronic indwelling Childs catheter: Possible Sepsis secondary to UTI due to indwelling Childs catheter Urine culture -Enterococcus species, sensitive to penicillin and cephalosporin but resistant to quinolones Blood culture -negative Continue ceftolozane/tazobactam Anemia Possible GI bleed, possible gastritis Chronic Eliquis use -- Acute on Chronic -- Hg baseline 9-10 Found to be at 7.5 no signs of overt bleeding -- EGD last year: unrevealing --Given 1 unit of packed RBCs Fecal occult blood test positive Hemoglobin remains stable around 8 Wool Classer consulted, recommend continue Protonix daily, close monitoring, defer EGD for now Unless hemoglobin continues to trend down Changed Protonix drip to lansoprazole daily per GI Acute renal failure: Creatinine has been very high at 4.45 from 1.27 on sixth of this month Likely secondary to severe dehydration Was given IV fluids -- Supervisor [employer] consulted crea back to baseline Bilateral hydronephrosis Likely complicating acute renal failure Has indwelling Childs catheter -- Discussed with urologist and the consult canceled Since he has been making urine normally through the Childs there is no need to do any intervention by the urologist at this time Will have an outpatient follow-up appointment Hyperkalemia Secondary to acute renal impairment -- Resolved Severe protein-calorie malnutrition: -- Continue PEG tube feeding 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 when medically stable, will need IV antibiotics Attempted to call patient's brother but he is not home as per family, requested to obtain cell phone number but family member does not have cell phone number Requested for patient's brother to call the [facility] for update and to discuss plan of care Subjective ff up for infected wounds seen resting in bed, comfortable states he feels "excellent" denies chest pain, dyspnea denies pain on his wounds no BM today,no abdominal pain, nausea no other symptoms Review of Systems Review of Systems: All systems reviewed & are unremarkable except as noted in HPI & below Physical Exam Physical Exam: General- oriented x 2, not in distress, speaks in sentences with no effort or accessory muscle use Eyes- anicteric Neck- no JVD Lungs- clear breath sounds bilaterally Heart- normal rate, regular rhythm; no murmurs Abdomen- good bowel sounds, nondistended, soft, nontender Extremities-patient declined exam Neuro- alert, oriented x 2; no new gross focal neurologic deficits Skin- warm & dry Results & Data Vital Signs (Past 12 Hours) Vital Signs Temp Pulse Pulse Resp BP Pulse Ox 08/10/19 11:31 36.5 C 88 18 145/80 H 94 08/10/19 07:22 36.5 C 83 18 121/73 97 08/10/19 07:00 89 08/10/19 05:13 36.4 C L 82 18 122/71 98 Laboratory Results Laboratory Results - last 24 hr 08/10/19 08/10/19 08/10/19 00:17 05:42 07:00 WBC 7.42 RBC 3.13 L Hgb 9.2 L Hct 28.2 L MCV 90.1 MCH 29.4 MCHC 32.6 RDW Std Deviation 52.1 H RDW Coeff of Lucila 16.1 H Plt Count 332 MPV 9.1 Immature Gran % (Auto) 0.5 Neut % (Auto) 57.8 Lymph % (Auto) 24.5 [place] % (Auto) 10.1 Eos % (Auto) 6.7 Baso % (Auto) 0.4 Immature Gran # (Auto) 0.04 H Neut # (Auto) 4.28 Lymph # (Auto) 1.82 [place] # (Auto) 0.75 H Eos # (Auto) 0.50 Baso # (Auto) 0.03 Sodium Potassium Chloride Carbon Dioxide Anion Gap BUN Creatinine Est Cr Clr Drug Dosing Est GFR ( Amer) Est GFR (Non-Af Amer) BUN/Creatinine Ratio Glucose POC Glucose 109 H 110 H Calcium Magnesium 08/10/19 08/10/19 07:00 11:38 WBC RBC Hgb Hct MCV MCH MCHC RDW Std Deviation RDW Coeff of Lucila Plt Count MPV Immature Gran % (Auto) Neut % (Auto) Lymph % (Auto) [place] % (Auto) Eos % (Auto) Baso % (Auto) Immature Gran # (Auto) Neut # (Auto) Lymph # (Auto) [place] # (Auto) Eos # (Auto) Baso # (Auto) Sodium 138 Potassium 4.1 Chloride 108 H Carbon Dioxide 26 Anion Gap 4.0 BUN 29 H Creatinine 0.67 Est Cr Clr Drug Dosing 87.2 Est GFR ( Amer) 110.5 Est GFR (Non-Af Amer) 95.3 BUN/Creatinine Ratio 43.3 H Glucose 101 H POC Glucose 107 H Calcium 8.5 Magnesium 1.7 L
[2019-08-10] MEDS: FOLIC ACID 1 MG TAB PO SCH (17:04)
[2019-08-11] MEDS: CHECK FENTANYL PATCH PLACEMENT SCH ×3 (00:20→17:41)
[2019-08-11] MEDS: OXYCODONE HCL IR 5 MG TAB (IMMEDIATE RELEASE) PEG SCH ×4 (00:20→17:41)
[2019-08-11] MEDS: INSULIN ASPART 100 UNITS/ML 3 ML PEN SC SCH ×4 (00:26→18:01)
[2019-08-11] MEDS: CEFTOLOZANE/TAZOBACTAM 1,500 MG in DEXTROSE 5% 100 ML IV SCH ×3 (02:07→18:01)
[2019-08-11] MEDS: LEVOTHYROXINE SODIUM 25 MCG TABLET PEG SCH (06:27)
[2019-08-11 07:40] LABS: Basophils # (auto) 0.04 K/uL (0-0.2); Basophils % (auto) 0.4 %; Eosinophils # (auto) 0.46 K/uL (0-0.5); Eosinophils % (auto) 4.2 %; Hematocrit (blood only) 28.7 % (42-52); Hemoglobin 9.1 g/dL (14.0-18.0); Immature Granulocytes # (auto) 0.06 K/uL (0.00-0.02); Immature Granulocytes % (auto) 0.5 %; Lymphocytes # (auto) 1.92 K/uL (1.2-3.4); Lymphocytes % (auto) 17.4 %; Mean Corpuscular Hemoglobin 29.1 pg (25-34); Mean Corpuscular Hgb Conc 31.7 g/dL (32-36); Mean Corpuscular Volume 91.7 fL (80-100); Monocytes # (auto) 1.19 K/uL (0.11-0.59); Monocytes % (auto) 10.8 %; Neutrophils # (auto) 7.36 K/uL (1.4-6.5); Neutrophils % (auto) 66.7 %; Platelet Count 400 K/uL (130-400); RDW Coefficient of Variation 16.3 % (11.5-14.5); RDW Standard Deviation 52.8 fL (36.4-46.3); Red Blood Count 3.13 M/uL (4.7-6.1); White Blood Count 11.03 K/uL (4.8-10.8)
[2019-08-11 08:18] LABS: BUN Creatinine Ratio 47.7 (10-20); Calcium 8.9 mg/dl (8.5-10.1); Creatinine Clr Calc Pharmacy 78.4 ml/min; Est GFR (African American) 105.5; Magnesium 1.7 mg/dl (1.8-2.4)
--- NOTE | 2019-08-11 09:13 | Infectious Disease Consult ---
Date of Consultation August 11, 2019 Assessment & Plan (1) Infected wound: Agree with previous ID eval, would continue current abx x 4 weeks. History of Present Illness Attending Physician: Parrish Covington MD pt admitted for hotn, has chronic wounds, culture obtained, growing E.coli, morganella, and resistant pseudomonas. consult with Irwin ID obtained, suggested Zerbaxa x 4 weeks. pt is tolerating well. no f/c. no abd pain, no n/v/d. wbc 7. no complaints on my exam Allergies Allergy/AdvReac Type Severity Reaction Status Date / Time iodine Allergy Unknown Unknown Verified 07/31/19 03:49 onion AdvReac Intermediate vomitting Verified 07/31/19 03:49 Home Medications Home Medications Medication Instructions Recorded Confirmed Type B [id number] 1 tab FEEDING TUBE DAILY 03/14/19 07/31/19 History Eliquis 5 mg PO BID 03/14/19 07/31/19 History acetaminophen [Tylenol] 650 mg PO Q4 PRN MDD 3gm/24hr 03/14/19 07/31/19 History baclofen 5 mg PO TID 03/14/19 07/31/19 History bisacodyl [Dulcolax (bisacodyl)] 10 mg PA UD PRN 03/14/19 07/31/19 History divalproex 500 mg PO BID 03/14/19 07/31/19 History docusate sodium 100 mg PO BID 03/14/19 07/31/19 History fentanyl [Duragesic] 1 patch TOPICAL [id number] 03/14/19 07/31/19 History folic acid 1 mg PO DAILY 03/14/19 07/31/19 History levothyroxine [Synthroid] 25 mcg PO DAILY 03/14/19 07/31/19 History melatonin 3 mg PO HS 03/14/19 07/31/19 History metoprolol succinate [Toprol XL] 25 mg PO UD 03/14/19 07/31/19 History oxycodone [Roxicodone] 5 mg PO Q6H 03/14/19 07/31/19 History thiamine HCl (vitamin B1) 100 mg PO DAILY 03/14/19 07/31/19 History tramadol [Ultram] 50 mg PO Q6 PRN 03/14/19 07/31/19 History cephalexin [Keflex] 500 mg FEEDING TUBE QID 07/29/19 07/31/19 History magnesium hydroxide [Milk of 30 ml FEEDING TUBE DAILY PRN 07/29/19 07/31/19 History Magnesia] risperidone [Risperdal] 0.5 mg FEEDING TUBE BID 07/29/19 07/31/19 History Saccharomyces boulardii 250 mg PO BID 07/31/19 07/31/19 History acetaminophen 650 mg PO Q6H PRN MDD 3gm/24hr 07/31/19 07/31/19 History esomeprazole magnesium [Nexium 40 mg PO DAILY 07/31/19 07/31/19 History Packet] ferrous sulfate 325 mg FEEDING TUBE BID 07/31/19 07/31/19 History multivit,stress formula-zinc 1 tab PO DAILY 07/31/19 07/31/19 History [Stress Formula with Zinc] nut.tx. metabolic disorder,soy 1 ea FEEDING TUBE UD 07/31/19 07/31/19 History [Perative] protein supplement 1 ea PO BID 07/31/19 07/31/19 History Patient History Medical History Anemia (Chronic) Anxiety (Chronic) Bacteremia Chronic pain (Chronic) Chronic systolic CHF (congestive heart failure) (Chronic) Coronary artery disease (Chronic) s/p [place] 2007 Decubitus ulcer (Chronic) multiple, chronic Depression Dyslipidemia (Chronic) Esophagitis Childs catheter in place GERD (gastroesophageal reflux disease) (Chronic) History of Clostridium difficile colitis (Chronic) History of DVT (deep vein thrombosis) (Chronic) LLE 2017 History of electroconvulsive therapy (Chronic) History of ESBL E. 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 Childs cath. 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: No Beliefs That Will Affect Care: None marital status: Single Current Living Situation: [facility] Current Living Situation Comment: [place] Feels Safe at Home: Declines to Answer Smoking Status: Unknown if ever smoked Review of Systems Review of Systems: All systems reviewed & are unremarkable except as noted in HPI & below Physical Exam Constitutional: WD/WN, vitals as above Eyes: PERRL, conjunctivae normal, anicteric sclerae ENMT: external ear and nose normal, oropharynx normal Neck: normal visual inspection Respiratory: normal respiratory effort, lungs clear to auscultation Cardiovascular: RRR, no murmur, no edema Gastrointestinal (Abdomen): normal bowel sounds, soft, nontender, no hepatosplenomegaly Musculoskeletal: no cyanosis or clubbing, extremities motor strength 5/5 Skin: no rashes, warm and dry Psychiatric: A+Ox3, euthymic affect Results & Data Vital Signs (Past 12 Hours) Vital Signs Temp Pulse Pulse Resp BP BP Pulse Ox 08/11/19 07:49 36.7 C 86 18 116/72 97 08/11/19 04:00 36.7 C 85 18 123/69 96 08/11/19 02:33 76 08/11/19 00:29 36.9 C 80 20 121/75 97 Laboratory Results Microbiology 07/31/19 11:30 Hip,Left Decubitus Gram Stain - Final 07/31/19 11:30 Hip,Left Decubitus Deep Wound Culture - Final Pseudomonas aeruginosa 07/31/19 02:38 Blood Aerobic Blood Culture - Final No growth in Aerobic bottle after 5 days. 07/31/19 02:38 Blood Anaerobic Blood Culture - Final No growth in Anaerobic bottle after 5 days. 07/31/19 03:07 Blood Aerobic Blood Culture - Final No growth in Aerobic bottle after 5 days. 07/31/19 03:07 Blood Anaerobic Blood Culture - Final 07/31/19 11:30 Groin Gram Stain - Final 07/31/19 11:30 Groin Deep Wound Culture - Final Escherichia coli Morganella morganii 07/31/19 11:30 Hip,Right Decubitus Gram Stain - Final 07/31/19 11:30 Hip,Right Decubitus Deep Wound Culture - Final Morganella morganii 07/31/19 03:15 Urine,Clean Catch Urine Culture - Final Enterococcus faecalis PG Care Time/CCT Total # of Minutes Spent Total Time Spent with Patient: Total time spent is greater than 50% in coordination of care (as documented) at patient's floor/unit and/or counseling patient:
[2019-08-11] MEDS: BACLOFEN 10 MG TAB PO SCH ×3 (09:24→21:38)
[2019-08-11] MEDS: THIAMINE HCL 100 MG TAB PEG SCH (09:25)
[2019-08-11] MEDS: CEROVITE ADV FORMULA TAB PO SCH (09:25)
[2019-08-11] MEDS: FOLIC ACID 1 MG TAB PEG SCH (09:27)
[2019-08-11] MEDS: VITAMIN B COMPLEX TAB PO SCH (09:27)
[2019-08-11] MEDS: FERROUS SULFATE 325 MG/7.4 ML UDP PEG SCH ×2 (09:28→21:37)
[2019-08-11] MEDS: risperiDONE 0.5 MG TABLET PEG SCH ×2 (09:29→21:41)
[2019-08-11] MEDS: LANSOPRAZOLE 30 MG SOLTAB PEG SCH ×2 (09:30→21:40)
[2019-08-11] MEDS: PROSOURCE NO CARB 30 ML/PKT PEG SCH ×2 (09:31→21:41)
[2019-08-11] MEDS: DIVALPROEX SODIUM SPRINKLE 125 MG CAP PEG SCH ×2 (09:32→21:37)
[2019-08-11] MEDS: DOCUSATE SODIUM SYRUP 100 MG/10 ML UDC PEG SCH ×2 (09:34→21:35)
[2019-08-11] MEDS: SACCHAROMYCES BOULARDII 250 MG CAP PO SCH ×2 (09:34→21:37)
[2019-08-11] MEDS: INSULIN GLARGINE SOLOSTAR 100 UNITS/ML 3 ML PEN SQ SCH (09:36)
--- NOTE | 2019-08-11 12:41 | Gastroenterology Progress Note ---
Date of Service August 11, 2019 Assessment & Plan (1) Anemia: (2) Heme positive stool: Pt is a 74 y/o male followed for anemia, heme positive stool, in setting of Eliquis use for hx of DVT. Eliquis had been held. His blood ct had improved in last few days since his last PRBC transfusion on 08/06/2019 from 7 ->9. No overt signs of GI bleeding, stools brown and loose. He is tolerating TF via PEG well w/o abd pain, n/v. Will hold off on EGD evaluation at this time. Please recall GI as needed if new question/problems arise Attg add: I reviewed chart and labs. No ongoing evidence of GI blood loss. Hgb stable. Will sign off. Subjective Pt w/o acute events overnight, tolerating TF via PEG. Denies any abd pain, n/v. Had last BM this AM, noted to be brown and loose. He had 1U PRBC tranfusion on 08/06/2019, Hgb up to 9 now and stable. Review of Systems Review of Systems: All systems reviewed & are unremarkable except as noted in HPI & below Physical Exam Constitutional: + thin, well groomed, cooperative and comfortable Eyes: PERRL, conjunctivae normal, anicteric sclerae ENMT: external ear and nose normal, oropharynx normal Respiratory: normal respiratory effort, lungs clear to auscultation Cardiovascular: RRR, no murmur, no edema Gastrointestinal (Abdomen): normal bowel sounds, soft, nontender, no hepatosplenomegaly PEG to RUQ abd area, tube feeds running. No signs of discharge or erythema on PEG insertion site. Skin: no rashes, warm and dry no jaundice Psychiatric: A+Ox3, euthymic affect Lymphatic: no lymphedema Results & Data Vital Signs (Past 12 Hours) Vital Signs Temp Pulse Pulse Resp BP BP Pulse Ox 08/11/19 11:47 36.7 C 83 18 120/78 99 08/11/19 07:49 36.7 C 86 18 116/72 97 08/11/19 04:00 36.7 C 85 18 123/69 96 08/11/19 02:33 76 (1) Anemia Anemia type: other cause Other causes of anemia: nutritional, protein deficiency Qualified Code(s): D53.0 - Protein deficiency anemia
[2019-08-11] MEDS: METOPROLOL TARTRATE 25 MG TAB PO SCH ×2 (13:03→21:39)
[2019-08-11] MEDS: PEPTAMEN 1.5 CAL 1,000 ML BAG PEG SCH (13:10)
[2019-08-12] MEDS: OXYCODONE HCL IR 5 MG TAB (IMMEDIATE RELEASE) PEG SCH ×4 (00:28→18:05)
[2019-08-12] MEDS: CHECK FENTANYL PATCH PLACEMENT SCH ×3 (00:29→17:14)
[2019-08-12] MEDS: INSULIN ASPART 100 UNITS/ML 3 ML PEN SC SCH ×4 (00:29→18:14)
[2019-08-12] MEDS: CEFTOLOZANE/TAZOBACTAM 1,500 MG in DEXTROSE 5% 100 ML IV SCH (02:04)
[2019-08-12] MEDS: LEVOTHYROXINE SODIUM 25 MCG TABLET PEG SCH (06:06)
--- NOTE | 2019-08-12 06:14 | Hospitalist Progress Note ---
Date of Service delayed entry date of service 08/11/2019 August 12, 2019 Assessment & Plan (1) Encephalopathy: (1) Encephalopathy: Encephalopathy Likely secondary to possible sepsis due to complicated UTI- Enterococcus with Childs catheter and multiple decubiti infected ulcers-- Morganella, E coli, Pseudomonas Was admitted 12 from [facility] with possible change in mental status Improved Communicating at his baseline -- Urine culture: Enterococcus Wound cultures: (+) Morganella, E coli, Pseudomonas -- was on Dapto, Zosyn; continued on Ceftolazone/Tazobactam IV Patient seen by orthopedic service, recommend aspiration of right hip joint--> Radiology SVC does not recommend attempt to aspirate as there is no fluid collection on CT hip Continue IV ceftolozane/tazobactam, will need to discuss with ID Service: debridement required? ceftolazone/tazobactam: Pseudomonas only intermediate sensitivity Will need a PICC line Decubitus ulcer: per Dr. Reyes's notes: Pressure ulcers of medial sacrum, stage 3; right lateral hip, stage 4; unstageable right scapular ulcer, left medial lower leg deep tissue injury, likely right lower lateral leg pressure injury; unstageable right medial foot and ankle pressure ulcer; and stage 4 pressure ulcer to left lateral hip Has significant sacral decubiti, stage IV as in the picture Will get CT of the pelvis to rule out any osteomyelitis and/or hip joint effusion Appreciate wound care input and recommendation -- management per #1 will need to ff up with [facility] and ID [facility] Chronic indwelling Childs catheter: Possible Sepsis secondary to UTI due to indwelling Childs catheter Urine culture -Enterococcus species, sensitive to penicillin and cephalosporin but resistant to quinolones Blood culture -negative Continue ceftolozane/tazobactam Anemia Possible GI bleed, possible gastritis Chronic Eliquis use -- Acute on Chronic -- Hg baseline 9-10 Found to be at 7.5 no signs of overt bleeding -- EGD last year: unrevealing --Given 1 unit of packed RBCs Fecal occult blood test positive Hemoglobin remains stable around 8 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, recommend continue Protonix daily, close monitoring, defer EGD for now Unless hemoglobin continues to trend down Changed Protonix drip to lansoprazole daily per GI Hg stable, discuss with GI re: restarting Eliquis Acute renal failure: Creatinine has been very high at 4.45 from 1.27 on sixth of this month Likely secondary to severe dehydration Was given IV fluids -- Regulatory Affairs Coordinator consulted crea back to baseline Bilateral hydronephrosis Likely complicating acute renal failure Has indwelling Childs catheter -- Discussed with urologist and the consult canceled Since he has been making urine normally through the Childs there is no need to do any intervention by the urologist at this time Will have an outpatient follow-up appointment Hyperkalemia Secondary to acute renal impairment -- Resolved Severe protein-calorie malnutrition: -- Continue PEG tube feeding 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 History of DVT -- Hold Eliquis in light of anemia, possible GI bleed--> discuss with GI re: restarting Eliquis History of status post IVC filter placement Schizoid personality disorder: -- No acute symptoms Hypothyroidism: -- Continue replacement Chronic systolic CHF (congestive heart failure): -- Euvolemic HTN (hypertension): -- continue current medication Anxiety: -- No acute issue DVT prophylaxis Eliquis on hold for now in light of anemia, possible GI bleed Patient has IVC filter, presence of wound preclude SCDs anticipate return to [facility] when medically stable, will need IV antibiotics Subjective ff up for encephalopathy, secondary to infected decubitus ulcer wounds, UTI seen resting in bed, alert, comfortable denies pain , states he feels fine denies abdominal pain, nausea no melena/hematochezia noted no other symptoms Review of Systems Review of Systems: All systems reviewed & are unremarkable except as noted in HPI & below Physical Exam Physical Exam: General- oriented x 2, not in distress, speaks in sentences with no effort or accessory muscle use Eyes- anicteric Neck- no JVD Lungs- clear breath sounds BL no rales no wheezing Heart- normal rate, regular rhythm; no murmurs Abdomen- normal bowel sounds, nondistended, soft, nontender peg tube: no issues Extremities- patient declined exam Neuro- alert, oriented x 2; no gross focal neurologic deficits Skin- warm & dry Results & Data Vital Signs (Past 12 Hours) Vital Signs Temp Pulse Pulse Resp BP BP Pulse Ox 08/12/19 04:57 36.6 C 78 20 135/80 99 08/12/19 00:56 85 08/11/19 23:36 36.4 C L 81 20 134/78 97 01/06/20 19:50 36.5 C 86 20 121/74 97 Laboratory Results all noted
[2019-08-12 08:10] LABS: Basophils # (auto) 0.02 K/uL (0-0.2); Basophils % (auto) 0.2 %; Eosinophils # (auto) 0.39 K/uL (0-0.5); Eosinophils % (auto) 4.8 %; Hematocrit (blood only) 27.8 % (42-52); Immature Granulocytes # (auto) 0.03 K/uL (0.00-0.02); Immature Granulocytes % (auto) 0.4 %; Lymphocytes # (auto) 1.87 K/uL (1.2-3.4); Lymphocytes % (auto) 22.8 %; Mean Corpuscular Hemoglobin 29.1 pg (25-34); Mean Corpuscular Hgb Conc 32.4 g/dL (32-36); Mean Platelet Volume 9.1 fL (7.4-10.4); Monocytes # (auto) 0.78 K/uL (0.11-0.59); Monocytes % (auto) 9.5 %; Neutrophils # (auto) 5.11 K/uL (1.4-6.5); Neutrophils % (auto) 62.3 %; Platelet Count 348 K/uL (130-400); RDW Coefficient of Variation 16.5 % (11.5-14.5); RDW Standard Deviation 52.5 fL (36.4-46.3); Red Blood Count 3.09 M/uL (4.7-6.1)
[2019-08-12 08:39] LABS: Calcium 8.9 mg/dl (8.5-10.1); Creatinine Clr Calc Pharmacy 84.7 ml/min; Est GFR (African American) 108.5; Est GFR (Non-African American) 93.6; Magnesium 1.7 mg/dl (1.8-2.4); Potassium 4.2 mmol/L (3.5-5.1)
[2019-08-12] MEDS: DIVALPROEX SODIUM SPRINKLE 125 MG CAP PEG SCH ×2 (09:00→20:43)
[2019-08-12] MEDS: INSULIN GLARGINE SOLOSTAR 100 UNITS/ML 3 ML PEN SQ SCH (09:00)
[2019-08-12] MEDS: LANSOPRAZOLE 30 MG SOLTAB PEG SCH ×2 (09:00→20:46)
[2019-08-12] MEDS: FOLIC ACID 1 MG TAB PEG SCH (09:00)
[2019-08-12] MEDS: CEROVITE ADV FORMULA TAB PO SCH (09:00)
[2019-08-12] MEDS: BACLOFEN 10 MG TAB PO SCH ×3 (09:00→20:45)
[2019-08-12] MEDS: FERROUS SULFATE 325 MG/7.4 ML UDP PEG SCH ×2 (09:00→20:44)
[2019-08-12] MEDS: PROSOURCE NO CARB 30 ML/PKT PEG SCH ×2 (09:00→20:43)
[2019-08-12] MEDS: VITAMIN B COMPLEX TAB PO SCH (09:00)
[2019-08-12] MEDS: THIAMINE HCL 100 MG TAB PEG SCH (09:00)
[2019-08-12] MEDS: risperiDONE 0.5 MG TABLET PEG SCH ×2 (09:00→20:46)
[2019-08-12] MEDS: DOCUSATE SODIUM SYRUP 100 MG/10 ML UDC PEG SCH ×2 (09:00→20:42)
[2019-08-12] MEDS: METOPROLOL TARTRATE 25 MG TAB PO SCH ×2 (09:00→20:45)
[2019-08-12] MEDS: CEFTOLOZANE/TAZOBACTAM 3,000 MG in DEXTROSE 5% 100 ML IV SCH ×2 (10:48→18:15)
[2019-08-12] MEDS: SACCHAROMYCES BOULARDII 250 MG CAP PO SCH ×2 (10:57→20:47)
[2019-08-12] MEDS: PEPTAMEN 1.5 CAL 1,000 ML BAG PEG SCH (13:15)
--- NOTE | 2019-08-12 17:13 | Hospitalist Progress Note ---
Date of Service August 12, 2019 Assessment & Plan (1) Encephalopathy: -Encephalopathy Likely secondary to possible sepsis due to complicated UTI- Enterococcus with Felix catheter and multiple decubiti infected ulcers-- Morganella, E coli, Pseudomonas -Was admitted from [facility] with possible change in mental status -currently communicating at his baseline -Urine culture: Enterococcus Multiple decubitus ulcers -Pressure ulcers of medial sacrum, stage 3; right lateral hip, stage 4; unst ageable right scapular ulcer, left medial lower leg deep tissue injury, likely right lower lateral leg pressure injury; unstageable right medial foot and ankle pressure ulcer; and stage 4 pressure ulcer to left lateral hip; Has significant sacral decubiti, stage IV -Wound cultures: (+) Morganella, E coli, Pseudomonas -initially was on Daptomycin and Zosyn -currently on Ceftolazone/Tazobactam IV -Patient had been seen initially by orthopedic service and recommend aspiration of right hip joint but Radiology service does not recommend attempt to aspirate as there is no fluid collection on CT hip -Infectious disease consult also recommended jail IV antibiotics -08/12/2019: Patient seen and examined during the day with wound care nurses. Patient has bilateral large ulcers of the hips with no drainage seen. The sacral area ulcer has some serosanguineous fluid on surface seen during dressing changes. Patient is awake and alert but known to depend on his brother Dk Winters to make medical decisions. Had discussed with patient's brother Dk by phone (reachable by [phone] or [phone]) and telephone consent obtained telephone consent for midline of PICC line. Patient otherwise denies other concerns and does not have questions about his health - Medical doctor assesses that patient not being able to make complex medical decisions -continue wound care management Chronic indwelling Felix catheter: Bilateral hydronephrosis -urine output being made; felix can protect ulcers from further infection -Urine culture -Enterococcus species, sensitive to penicillin and cephalosporin but resistant to quinolones -Blood culture -negative -currently on ceftolozane/tazobactam but this is primarily for ulcer wounds Acute renal failure Hyperkalemia Secondary to acute renal impairment -acute renal failure resolved with IV fluids during this hospital stay -hyperkalemia on this admission has been treated Severe protein-calorie malnutrition: -Continue PEG tube feeding Schizoid personality disorder: -brother Dk Winters to make medical decisions Anxiety: -patient is most anxious when needing to have ulcers examined and dressed because of discomfort when being moved History of DVT in the past -History of IVC filter placement -had been on Eliquis as outpatient Anemia Possible GI bleed, possible gastritis Chronic Eliquis use -s/p 1 unit of PRBC on 08/06/2019 because patient's hemoglobin was 7.5 in context of baseline Hgb of 9 to 10 -no signs of overt bleeding -patient has been on protonics -currently Eliquis has been held. may consider restarting Eliquis once PICC or midline is placed Hypothyroidism: -Continue levothyroxine Chronic systolic CHF (congestive heart failure): -Euvolemic HTN (hypertension): -continue current medication Subjective Patient seen and examined during the day with wound care nurses. Patient has bilateral large ulcers of the hips with no drainage seen. The sacral area ulcer has some serosanguineous fluid on surface seen during dressing changes. Patient is awake and alert but known to depend on his brother Dk Winters to make medical decisions. Had discussed with patient's brother Dk by phone (reachable by [phone] or [phone]) and telephone consent obtained telephone consent for midline of PICC line. Patient otherwise denies other concerns and does not have questions about his health - Medical doctor assesses that patient not being able to make complex medical decisions Review of Systems Review of Systems: All systems reviewed & are unremarkable except as noted in HPI & below Physical Exam Constitutional: + frail appearing Eyes: PERRL, conjunctivae normal, anicteric sclerae EOM intact bilaterally ENMT: external ear and nose normal, oropharynx normal Neck: normal visual inspection Respiratory: normal respiratory effort, lungs clear to auscultation Cardiovascular: Rate/Rhythm: regular rate and regular rhythm Gastrointestinal (Abdomen): normal bowel sounds, soft, nontender, no hepatosplenomegaly Musculoskeletal: Head/Neck/Chest: normocephalic and head atraumatic Patient seen and examined during the day with wound care nurses. Patient has bilateral large ulcers of the hips with no drainage seen. The sacral area ulcer has some serosanguineous fluid on surface seen during dressing changes. Psychiatric: A+Ox3, euthymic affect Results & Data Vital Signs (Past 12 Hours) Vital Signs Temp Pulse Pulse Resp BP BP Pulse Ox 08/12/19 16:02 36.7 C 77 18 122/70 96 08/12/19 11:47 36.4 C L 75 18 113/73 96 08/12/19 07:44 36.9 C 75 18 106/68 96 08/12/19 07:18 84
[2019-08-13] MEDS: CHECK FENTANYL PATCH PLACEMENT SCH ×4 (00:12→23:52)
[2019-08-13] MEDS: OXYCODONE HCL IR 5 MG TAB (IMMEDIATE RELEASE) PEG SCH ×4 (00:12→18:01)
[2019-08-13] MEDS: INSULIN ASPART 100 UNITS/ML 3 ML PEN SC SCH ×5 (00:19→23:53)
[2019-08-13] MEDS: CEFTOLOZANE/TAZOBACTAM 3,000 MG in DEXTROSE 5% 100 ML IV SCH ×3 (02:21→18:01)
[2019-08-13] MEDS: LEVOTHYROXINE SODIUM 25 MCG TABLET PEG SCH (05:51)
[2019-08-13] MEDS: CEROVITE ADV FORMULA TAB PO SCH (07:53)
[2019-08-13] MEDS: SACCHAROMYCES BOULARDII 250 MG CAP PO SCH ×2 (07:53→20:48)
[2019-08-13] MEDS: METOPROLOL TARTRATE 25 MG TAB PO SCH ×2 (07:54→20:50)
[2019-08-13] MEDS: PROSOURCE NO CARB 30 ML/PKT PEG SCH ×2 (07:55→20:45)
[2019-08-13] MEDS: risperiDONE 0.5 MG TABLET PEG SCH ×2 (07:55→20:50)
[2019-08-13] MEDS: FOLIC ACID 1 MG TAB PEG SCH (07:55)
[2019-08-13] MEDS: THIAMINE HCL 100 MG TAB PEG SCH (07:56)
[2019-08-13] MEDS: VITAMIN B COMPLEX TAB PO SCH (07:56)
[2019-08-13] MEDS: FERROUS SULFATE 325 MG/7.4 ML UDP PEG SCH ×2 (07:57→20:46)
[2019-08-13] MEDS: LANSOPRAZOLE 30 MG SOLTAB PEG SCH ×2 (07:57→20:49)
[2019-08-13] MEDS: BACLOFEN 10 MG TAB PO SCH ×3 (07:58→20:48)
[2019-08-13] MEDS: DIVALPROEX SODIUM SPRINKLE 125 MG CAP PEG SCH ×2 (07:58→20:46)
[2019-08-13] MEDS: DOCUSATE SODIUM SYRUP 100 MG/10 ML UDC PEG SCH ×2 (07:59→20:45)
[2019-08-13] MEDS: INSULIN GLARGINE SOLOSTAR 100 UNITS/ML 3 ML PEN SQ SCH (07:59)
[2019-08-13 08:24] LABS: BUN Creatinine Ratio 49.7 (10-20); Calcium 9.1 mg/dl (8.5-10.1); Creatinine Clr Calc Pharmacy 81.7 ml/min; Est GFR (African American) 107.3; Est GFR (Non-African American) 92.5; Potassium 4.4 mmol/L (3.5-5.1)
[2019-08-13] MEDS: fentaNYL 25 MCG/HR TDSY TD SCH (09:00)
[2019-08-13] MEDS: PEPTAMEN 1.5 CAL 1,000 ML BAG PEG SCH (13:15)
--- NOTE | 2019-08-13 16:50 | Hospitalist Progress Note ---
Date of Service August 13, 2019 Assessment & Plan (1) Encephalopathy: -Encephalopathy Likely secondary to possible sepsis due to complicated UTI- Enterococcus with Felix catheter and multiple decubiti infected ulcers-- Morganella, E coli, Pseudomonas -Was admitted from [facility] with possible change in mental status -currently communicating at his baseline -Urine culture: Enterococcus Multiple decubitus ulcers -on admission there are: Pressure ulcers of medial sacrum, stage 3; right la teral hip, stage 4; unstageable right scapular ulcer, left medial lower leg deep tissue injury, likely right lower lateral leg pressure injury; unstageable right medial foot and ankle pressure ulcer; and stage 4 pressure ulcer to left lateral hip; Has significant sacral decubiti, stage IV -Wound cultures on hips/groin: Morganella, E coli, Pseudomonas -initially was on Daptomycin and Zosyn -currently on Ceftolazone/Tazobactam IV -Patient had been seen initially by orthopedic service and recommend aspiration of right hip joint but Radiology service does not recommend attempt to aspirate as there is no fluid collection on CT hip -Infectious disease consult also recommended nursing home IV antibiotics -08/12/2019: Patient seen and examined during the day with wound care nurses. Patient has bilateral large ulcers of the hips with no drainage seen. The sacral area ulcer has some serosanguineous fluid on surface seen during dressing changes. Patient is awake and alert but known to depend on his brother Dk Winters to make medical decisions. Had discussed with patient's brother Dk by phone (reachable by [phone] or [phone]) and telephone consent obtained telephone consent for midline of PICC line. Patient otherwise denies other concerns and does not have questions about his health - Medical doctor assesses that patient not being able to make complex medical decisions -continue wound care management -08/13/2019 have discussed in multi-disciplinary rounds that patient is on an increased dosing of Ceftolazone/Tazobactam IV as 3000 mg q8 hours due pseudomonas wound culture with multiple-drug resistance Amikacin S <=16 Aztreonam R >16 Cefepime R >16 Ceftazidime R >16 Ciprofloxacin R >2 Gentamicin S <=4 Imipenem R >8 Levofloxacin R >4 Tobramycin S <=4 Pip/Tazo R >64 -further Infectious disease recommendations on any further IV antibiotic changes are appreciated Chronic indwelling Felix catheter: Bilateral hydronephrosis -urine output being made; felix can protect ulcers from further infection -Urine culture -Enterococcus species, sensitive to penicillin and cephalosporin but resistant to quinolones -Blood culture -negative -currently on ceftolozane/tazobactam but this is primarily for ulcer wounds Acute renal failure Hyperkalemia Secondary to acute renal impairment -acute renal failure resolved with IV fluids during this hospital stay -hyperkalemia on this admission has been treated Severe protein-calorie malnutrition: -Continue PEG tube feeding Schizoid personality disorder: -brother Dk Winters to make medical decisions Anxiety: -patient is most anxious when needing to have ulcers examined and dressed because of discomfort when being moved History of DVT in the past -History of IVC filter placement -had been on Eliquis as outpatient Anemia Possible GI bleed, possible gastritis Chronic Eliquis use -s/p 1 unit of PRBC on 08/06/2019 because patient's hemoglobin was 7.5 in context of baseline Hgb of 9 to 10 -no signs of overt bleeding -patient has been on protonics -currently Eliquis has been held. may consider restarting Eliquis once PICC or midline is placed Hypothyroidism: -Continue levothyroxine Chronic systolic CHF (congestive heart failure): -Euvolemic HTN (hypertension): -continue current medication Subjective skin exam of ulcerations decline by patient. patient denies acute pain when not being repositioned. denies shortness of breath. denies pain of chest or abdomen. patient denies any questions to medical doctor Review of Systems Review of Systems: All systems reviewed & are unremarkable except as noted in HPI & below Physical Exam Constitutional: + frail appearing Eyes: PERRL, conjunctivae normal, anicteric sclerae EOM intact bilaterally ENMT: external ear and nose normal, oropharynx normal Neck: normal visual inspection Respiratory: normal respiratory effort, lungs clear to auscultation Cardiovascular: Rate/Rhythm: regular rate and regular rhythm Gastrointestinal (Abdomen): normal bowel sounds, soft, nontender, no hepatosplenomegaly Musculoskeletal: Head/Neck/Chest: normocephalic and head atraumatic Skin: skin exam of ulcerations decline by patient Psychiatric: A+Ox3, euthymic affect Results & Data Vital Signs (Past 12 Hours) Vital Signs Temp Pulse Pulse Resp BP BP Pulse Ox 08/13/19 15:49 36.5 C 88 18 131/75 97 08/13/19 11:46 36.6 C 103 H 18 138/83 93 08/13/19 07:51 36.7 C 80 18 120/74 95 08/13/19 07:32 83
[2019-08-14] MEDS: OXYCODONE HCL IR 5 MG TAB (IMMEDIATE RELEASE) PEG SCH ×2 (00:04→06:15)
[2019-08-14] MEDS: CEFTOLOZANE/TAZOBACTAM 3,000 MG in DEXTROSE 5% 100 ML IV SCH ×2 (01:16→10:00)
[2019-08-14] MEDS: LEVOTHYROXINE SODIUM 25 MCG TABLET PEG SCH (06:15)
[2019-08-14] MEDS: INSULIN ASPART 100 UNITS/ML 3 ML PEN SC SCH ×3 (06:23→18:21)
[2019-08-14] MEDS: CEROVITE ADV FORMULA TAB PO SCH (07:59)
[2019-08-14] MEDS: LANSOPRAZOLE 30 MG SOLTAB PEG SCH ×2 (07:59→21:11)
[2019-08-14] MEDS: FOLIC ACID 1 MG TAB PEG SCH (07:59)
[2019-08-14] MEDS: SACCHAROMYCES BOULARDII 250 MG CAP PO SCH ×2 (07:59→21:16)
[2019-08-14] MEDS: THIAMINE HCL 100 MG TAB PEG SCH (07:59)
[2019-08-14] MEDS: METOPROLOL TARTRATE 25 MG TAB PO SCH ×2 (07:59→21:13)
[2019-08-14] MEDS: DOCUSATE SODIUM SYRUP 100 MG/10 ML UDC PEG SCH ×2 (07:59→21:10)
[2019-08-14] MEDS: VITAMIN B COMPLEX TAB PO SCH (07:59)
[2019-08-14] MEDS: PROSOURCE NO CARB 30 ML/PKT PEG SCH ×2 (07:59→21:10)
[2019-08-14] MEDS: INSULIN GLARGINE SOLOSTAR 100 UNITS/ML 3 ML PEN SQ SCH (08:00)
[2019-08-14] MEDS: CHECK FENTANYL PATCH PLACEMENT SCH ×2 (08:01→16:28)
[2019-08-14] MEDS: DIVALPROEX SODIUM SPRINKLE 125 MG CAP PEG SCH ×2 (08:02→21:11)
[2019-08-14] MEDS: BACLOFEN 10 MG TAB PO SCH ×3 (08:02→21:13)
[2019-08-14] MEDS: FERROUS SULFATE 325 MG/7.4 ML UDP PEG SCH ×2 (08:02→21:11)
[2019-08-14] MEDS: risperiDONE 0.5 MG TABLET PEG SCH ×2 (08:03→21:17)
--- NOTE | 2019-08-14 11:27 | Hospitalist Progress Note ---
Date of Service August 14, 2019 Assessment & Plan (1) Encephalopathy: -Encephalopathy Likely secondary to possible sepsis due to complicated UTI- Enterococcus with Felix catheter and multiple decubiti infected ulcers-- Morganella, E coli, Pseudomonas -Was admitted from [facility] with possible change in mental status -currently communicating at his baseline -Urine culture: Enterococcus Multiple decubitus ulcers -on admission there are: Pressure ulcers of medial sacrum, stage 3; right la teral hip, stage 4; unstageable right scapular ulcer, left medial lower leg deep tissue injury, likely right lower lateral leg pressure injury; unstageable right medial foot and ankle pressure ulcer; and stage 4 pressure ulcer to left lateral hip; Has significant sacral decubiti, stage IV -Wound cultures on hips/groin: Morganella, E coli, Pseudomonas -initially was on Daptomycin and Zosyn -currently on Ceftolazone/Tazobactam IV -Patient had been seen initially by orthopedic service and recommend aspiration of right hip joint but Radiology service does not recommend attempt to aspirate as there is no fluid collection on CT hip -Infectious disease consult from [facility] in [place] Dr. Adam recommended terminologist IV antibiotics as per hospitalist notes on 08/07/2019 with subsequent comments by [facility] Infectious Disease consult -08/12/2019: Patient seen and examined during the day with wound care nurses. Patient has bilateral large ulcers of the hips with no drainage seen. The sacral area ulcer has some serosanguineous fluid on surface seen during dressing changes. Patient is awake and alert but known to depend on his brother Dk Winters to make medical decisions. Had discussed with patient's brother Dk by phone (reachable by [phone] or [phone]) and telephone consent obtained telephone consent for midline of PICC line. Patient otherwise denies other concerns and does not have questions about his health - Medical doctor assesses that patient not being able to make complex medical decisions -continue wound care management -08/13/2019 have discussed in multi-disciplinary rounds that patient is on an increased dosing of Ceftolazone/Tazobactam IV as 3000 mg q8 hours due pseudomonas wound culture with multiple-drug resistance; is intermediate sensit reji to Ceftolozane/tazobactam as per send out lab reports to pharmacist and also is resistant to AVYCAZ (ceftazidime and avibactam) Amikacin S <=16 Aztreonam R >16 Cefepime R >16 Ceftazidime R >16 Ciprofloxacin R >2 Gentamicin S <=4 Imipenem R >8 Levofloxacin R >4 Tobramycin S <=4 Pip/Tazo R >64 -08/14/2019 [facility] Infectious Disease Consult advised hospitalist to call to [facility] to discuss the case and after discussing with Dr. Brown from Infectious Disease service he advises against further IV antibiotics at this time as patient already had 2 weeks IV antibiotics, and does not appear to have active infectious process per clinical history and assessments, and that patient is multi-drug resistant to antibiotics. Hospitalist discontinued Ceftolazone/Tazobactam IV. If no fevers off anibiotics, then patient may be discharged in near future without IV antibiotics Chronic indwelling Felix catheter: Bilateral hydronephrosis -urine output being made; felix can protect ulcers from further infection -Urine culture -Enterococcus species, sensitive to penicillin and cephalosporin but resistant to quinolones -Blood culture -negative -currently on ceftolozane/tazobactam but this is primarily for ulcer wounds Acute renal failure Hyperkalemia Secondary to acute renal impairment -acute renal failure resolved with IV fluids during this hospital stay -hyperkalemia on this admission has been treated Severe protein-calorie malnutrition: -Continue PEG tube feeding Schizoid personality disorder: -brother Dk Winters to make medical decisions Anxiety: -patient is most anxious when needing to have ulcers examined and dressed because of discomfort when being moved History of DVT in the past -History of IVC filter placement -had been on Eliquis as outpatient Anemia Possible GI bleed, possible gastritis Chronic Eliquis use -s/p 1 unit of PRBC on 08/06/2019 because patient's hemoglobin was 7.5 in context of baseline Hgb of 9 to 10 -no signs of overt bleeding -patient has been on protonics -currently Eliquis has been held. may consider restarting Eliquis once need for PICC or midline is not deemed necessary on discharge Hypothyroidism: -Continue levothyroxine Chronic systolic CHF (congestive heart failure): -Euvolemic HTN (hypertension): -continue current medication Subjective Patient did not allow medical doctor to look at sacral/hip ulcers. otherwise he allowed other physical exam. Patient denied acute pain. breathing comfortably on room air. he was informed of plans to stop IV antibiotics today Review of Systems Review of Systems: All systems reviewed & are unremarkable except as noted in HPI & below Physical Exam Constitutional: + frail appearing Eyes: PERRL, conjunctivae normal, anicteric sclerae EOM intact bilaterally ENMT: external ear and nose normal, oropharynx normal Neck: normal visual inspection Respiratory: normal respiratory effort, lungs clear to auscultation Cardiovascular: Rate/Rhythm: regular rate and regular rhythm Gastrointestinal (Abdomen): normal bowel sounds, soft, nontender, no hepatosplenomegaly Musculoskeletal: Head/Neck/Chest: normocephalic and head atraumatic Skin: patient did not allow to be turned for medical doctor to see the ulcers Psychiatric: A+Ox3, euthymic affect Genitourinary: + penis abnormality (felix) Results & Data Vital Signs (Past 12 Hours) Vital Signs Temp Pulse Pulse Resp BP BP Pulse Ox 08/14/19 07:10 36.6 C 83 83 20 124/78 97 08/14/19 04:06 36.4 C L 92 H 20 128/79 93 08/14/19 00:00 74 08/13/19 23:24 36.5 C 81 20 135/81 93
[2019-08-14] MEDS: PEPTAMEN 1.5 CAL 1,000 ML BAG PEG SCH (13:26)
[2019-08-14] MEDS: HEPARIN SOD 5,000 UNIT/0.5 ML VIAL SQ SCH (21:17)
[2019-08-15] MEDS: CHECK FENTANYL PATCH PLACEMENT SCH ×3 (00:20→18:28)
[2019-08-15] MEDS: INSULIN ASPART 100 UNITS/ML 3 ML PEN SC SCH ×4 (00:26→18:29)
[2019-08-15] MEDS: LEVOTHYROXINE SODIUM 25 MCG TABLET PEG SCH (06:09)
[2019-08-15] MEDS: CEROVITE ADV FORMULA TAB PO SCH (07:51)
[2019-08-15] MEDS: BACLOFEN 10 MG TAB PO SCH ×3 (07:53→22:00)
[2019-08-15] MEDS: INSULIN GLARGINE SOLOSTAR 100 UNITS/ML 3 ML PEN SQ SCH (07:55)
[2019-08-15] MEDS: METOPROLOL TARTRATE 25 MG TAB PO SCH ×2 (07:55→22:06)
[2019-08-15] MEDS: VITAMIN B COMPLEX TAB PO SCH (07:56)
[2019-08-15] MEDS: DIVALPROEX SODIUM SPRINKLE 125 MG CAP PEG SCH ×2 (07:57→22:08)
[2019-08-15] MEDS: risperiDONE 0.5 MG TABLET PEG SCH ×2 (08:00→22:09)
[2019-08-15] MEDS: PROSOURCE NO CARB 30 ML/PKT PEG SCH ×2 (08:00→22:10)
[2019-08-15] MEDS: FERROUS SULFATE 325 MG/7.4 ML UDP PEG SCH ×2 (08:00→22:01)
[2019-08-15] MEDS: THIAMINE HCL 100 MG TAB PEG SCH (08:01)
[2019-08-15] MEDS: FOLIC ACID 1 MG TAB PEG SCH (08:01)
[2019-08-15] MEDS: HEPARIN SOD 5,000 UNIT/0.5 ML VIAL SQ SCH (08:01)
[2019-08-15] MEDS: LANSOPRAZOLE 30 MG SOLTAB PEG SCH ×2 (08:02→22:07)
[2019-08-15] MEDS: DOCUSATE SODIUM SYRUP 100 MG/10 ML UDC PEG SCH ×2 (08:04→21:59)
[2019-08-15] MEDS: SACCHAROMYCES BOULARDII 250 MG CAP PO SCH (08:05)
[2019-08-15 08:27] LABS: Basophils # (auto) 0.03 K/uL (0-0.2); Basophils % (auto) 0.4 %; Eosinophils # (auto) 0.27 K/uL (0-0.5); Eosinophils % (auto) 3.3 %; Hematocrit (blood only) 29.1 % (42-52); Hemoglobin 9.4 g/dL (14.0-18.0); Immature Granulocytes # (auto) 0.03 K/uL (0.00-0.02); Immature Granulocytes % (auto) 0.4 %; Lymphocytes # (auto) 1.62 K/uL (1.2-3.4); Mean Corpuscular Hemoglobin 29.3 pg (25-34); Mean Corpuscular Hgb Conc 32.3 g/dL (32-36); Mean Corpuscular Volume 90.7 fL (80-100); Monocytes # (auto) 0.79 K/uL (0.11-0.59); Monocytes % (auto) 9.8 %; Neutrophils # (auto) 5.36 K/uL (1.4-6.5); Neutrophils % (auto) 66.1 %; Platelet Count 361 K/uL (130-400); RDW Coefficient of Variation 16.7 % (11.5-14.5); RDW Standard Deviation 54.7 fL (36.4-46.3); Red Blood Count 3.21 M/uL (4.7-6.1)
[2019-08-15 08:56] LABS: BUN Creatinine Ratio 60.6 (10-20); Calcium 8.8 mg/dl (8.5-10.1); Creatinine Clr Calc Pharmacy 82.3 ml/min; Est GFR (African American) 107.9; Est GFR (Non-African American) 93.1; Magnesium 1.6 mg/dl (1.8-2.4); Potassium 4.3 mmol/L (3.5-5.1)
[2019-08-15 08:59] LABS: Albumin Globulin Ratio 0.4 (0.9-2); Bilirubin,Total 0.2 mg/dl (0.2-1); Globulin 5.4 gm/dl (2.5-4.0); Phosphorus 2.9 mg/dl (2.5-4.9); Total Protein 7.4 gm/dl (6.4-8.2)
[2019-08-15] MEDS: PEPTAMEN 1.5 CAL 1,000 ML BAG PEG SCH (13:45)
--- NOTE | 2019-08-15 13:56 | Hospitalist Progress Note ---
Date of Service August 15, 2019 Assessment & Plan (1) Encephalopathy: -Encephalopathy Likely secondary to possible sepsis due to complicated UTI- Enterococcus with Felix catheter and multiple decubiti infected ulcers-- Morganella, E coli, Pseudomonas -Was admitted from [facility] with possible change in mental status -currently communicating at his baseline -Urine culture: Enterococcus Multiple decubitus ulcers -on admission there are: Pressure ulcers of medial sacrum, stage 3; right l ateral hip, stage 4; unstageable right scapular ulcer, left medial lower leg deep tissue injury, likely right lower lateral leg pressure injury; unstageable right medial foot and ankle pressure ulcer; and stage 4 pressure ulcer to left lateral hip; Has significant sacral decubiti, stage IV -Wound cultures on hips/groin: Morganella, E coli, Pseudomonas -initially was on Daptomycin and Zosyn -currently on Ceftolazone/Tazobactam IV -Patient had been seen initially by orthopedic service and recommend aspiration of right hip joint but Radiology service does not recommend attempt to aspirate as there is no fluid collection on CT hip -Infectious disease consult from [facility] in [place] Dr. Adam recommended longterm IV antibiotics as per hospitalist notes on 08/07/2019 with subsequent comments by [facility] Infectious Disease consult -08/12/2019: Patient seen and examined during the day with wound care nurses. Patient has bilateral large ulcers of the hips with no drainage seen. The sacral area ulcer has some serosanguineous fluid on surface seen during dressing changes. Patient is awake and alert but known to depend on his brother Dk Winters to make medical decisions. Had discussed with patient's brother Dk by phone (reachable by [phone] or [phone]) and telephone consent obtained telephone consent for midline of PICC line. Patient otherwise denies other concerns and does not have questions about his health - Medical doctor assesses that patient not being able to make complex medical decisions -continue wound care management -08/13/2019 have discussed in multi-disciplinary rounds that patient is on an increased dosing of Ceftolazone/Tazobactam IV as 3000 mg q8 hours due pseudomonas wound culture with multiple-drug resistance; is intermediate sensi tive to Ceftolozane/tazobactam as per send out lab reports to pharmacist and also is resistant to AVYCAZ (ceftazidime and avibactam) Amikacin S <=16 Aztreonam R >16 Cefepime R >16 Ceftazidime R >16 Ciprofloxacin R >2 Gentamicin S <=4 Imipenem R >8 Levofloxacin R >4 Tobramycin S <=4 Pip/Tazo R >64 -08/14/2019 [facility] [place] Infectious Disease Consult advised hospitalist to call to [facility] to discuss the case and after discussing with Dr. Brown from Infectious Disease service he advises against further IV antibiotics at this time as patient already had 2 weeks IV antibiotics, and does not appear to have active infectious process per clinical history and assessments, and that patient is multi-drug resistant to antibiotics. Hospitalist discontinued Ceftolazone/Tazobactam IV. If no fevers off anibiotics, then patient may be discharged in near future without IV antibiotics -08/15/2019: remains afebrile off antibiotics, consider discharge on 08/16/2019 Chronic indwelling Felix catheter: Bilateral hydronephrosis -urine output being made; felix can protect ulcers from further infection -Urine culture -Enterococcus species, sensitive to penicillin and cephalosporin but resistant to quinolones -Blood culture -negative -had been on ceftolozane/tazobactam but this is primarily for ulcer wounds Acute renal failure Hyperkalemia Secondary to acute renal impairment -acute renal failure resolved with IV fluids during this hospital stay -hyperkalemia on this admission has been treated Severe protein-calorie malnutrition: -Continue PEG tube feeding Schizoid personality disorder: -brother Dk Winters to make medical decisions Anxiety: -patient is most anxious when needing to have ulcers examined and dressed sushma use of discomfort when being moved History of DVT in the past -History of IVC filter placement -had been on Eliquis as outpatient Anemia Possible GI bleed, possible gastritis Chronic Eliquis use -s/p 1 unit of PRBC on 08/06/2019 because patient's hemoglobin was 7.5 in context of baseline Hgb of 9 to 10 -no signs of overt bleeding -patient has been on protonics -will resume Eliquis as no current plans for PICC or midline Hypothyroidism: -Continue levothyroxine Chronic systolic CHF (congestive heart failure): -Euvolemic HTN (hypertension): -continue current medication Subjective When medical doctor walked into room, patient had been recently repositioned by nursing and he was screaming. Patient did not want medical doctor to take a look at the ulcers of hips/sacrum. He allowed for doctor to do rest of medical exam. Review of Systems Review of Systems: All systems reviewed & are unremarkable except as noted in HPI & below Physical Exam Constitutional: + frail appearing Eyes: PERRL, conjunctivae normal, anicteric sclerae EOM intact bilaterally ENMT: external ear and nose normal, oropharynx normal Neck: normal visual inspection Respiratory: normal respiratory effort, lungs clear to auscultation Cardiovascular: Rate/Rhythm: regular rate and regular rhythm Gastrointestinal (Abdomen): normal bowel sounds, soft, nontender, no hepatosplenomegaly Musculoskeletal: Head/Neck/Chest: normocephalic and head atraumatic Psychiatric: A+Ox3, euthymic affect Genitourinary: + penis abnormality (felix) Results & Data Vital Signs (Past 12 Hours) Vital Signs Temp Pulse Pulse Resp BP Pulse Ox 08/15/19 11:53 36.4 C L 91 H 18 118/73 98 08/15/19 07:09 36.5 C 97 H 20 108/70 98 08/15/19 07:00 101 H 08/15/19 03:52 36.6 C 89 18 111/72 97 08/15/19 02:34 66
[2019-08-15] MEDS: APIXABAN 5 MG TABLET PO SCH (22:12)
[2019-08-16] MEDS: INSULIN ASPART 100 UNITS/ML 3 ML PEN SC SCH ×3 (00:31→12:36)
[2019-08-16] MEDS: CHECK FENTANYL PATCH PLACEMENT SCH ×2 (00:32→08:12)
[2019-08-16] MEDS: LEVOTHYROXINE SODIUM 25 MCG TABLET PEG SCH (06:28)
[2019-08-16] MEDS: VITAMIN B COMPLEX TAB PO SCH (08:10)
[2019-08-16] MEDS: LANSOPRAZOLE 30 MG SOLTAB PEG SCH (08:10)
[2019-08-16] MEDS: DIVALPROEX SODIUM SPRINKLE 125 MG CAP PEG SCH (08:10)
[2019-08-16] MEDS: risperiDONE 0.5 MG TABLET PEG SCH (08:10)
[2019-08-16] MEDS: APIXABAN 5 MG TABLET PO SCH (08:10)
[2019-08-16] MEDS: THIAMINE HCL 100 MG TAB PEG SCH (08:10)
[2019-08-16] MEDS: FOLIC ACID 1 MG TAB PEG SCH (08:11)
[2019-08-16] MEDS: BACLOFEN 10 MG TAB PO SCH (08:11)
[2019-08-16] MEDS: CEROVITE ADV FORMULA TAB PO SCH (08:12)
[2019-08-16] MEDS: METOPROLOL TARTRATE 25 MG TAB PO SCH (08:12)
[2019-08-16] MEDS: DOCUSATE SODIUM SYRUP 100 MG/10 ML UDC PEG SCH (08:13)
[2019-08-16] MEDS: FERROUS SULFATE 325 MG/7.4 ML UDP PEG SCH (08:13)
[2019-08-16] MEDS: PROSOURCE NO CARB 30 ML/PKT PEG SCH (08:13)
[2019-08-16] MEDS: INSULIN GLARGINE SOLOSTAR 100 UNITS/ML 3 ML PEN SQ SCH (08:14)
--- NOTE | 2019-08-16 10:52 | Hospitalist Progress Note ---
Date of Service August 16, 2019 Assessment & Plan (1) Encephalopathy: -Encephalopathy Likely secondary to possible sepsis due to complicated UTI- Enterococcus with Felix catheter and multiple decubiti infected ulcers-- Morganella, E coli, Pseudomonas -Was admitted from [facility] with possible change in mental status -currently communicating at his baseline -Urine culture: Enterococcus Multiple decubitus ulcers -on admission there are: Pressure ulcers of medial sacrum, stage 3; right l ateral hip, stage 4; unstageable right scapular ulcer, left medial lower leg deep tissue injury, likely right lower lateral leg pressure injury; unstageable right medial foot and ankle pressure ulcer; and stage 4 pressure ulcer to left lateral hip; Has significant sacral decubiti, stage IV -Wound cultures on hips/groin: Morganella, E coli, Pseudomonas -initially was on Daptomycin and Zosyn -currently on Ceftolazone/Tazobactam IV -Patient had been seen initially by orthopedic service and recommend aspiration of right hip joint but Radiology service does not recommend attempt to aspirate as there is no fluid collection on CT hip -Infectious disease consult from [facility] in [place] Dr. Adam recommended group home IV antibiotics as per hospitalist notes on 08/07/2019 with subsequent comments by [facility] Sameera Infectious Disease consult -08/12/2019: Patient seen and examined during the day with wound care nurses. Patient has bilateral large ulcers of the hips with no drainage seen. The sacral area ulcer has some serosanguineous fluid on surface seen during dressing changes. Patient is awake and alert but known to depend on his brother Dk Winters to make medical decisions. Had discussed with patient's brother Dk by phone (reachable by [phone] or [phone]) and telephone consent obtained telephone consent for midline of PICC line. Patient otherwise denies other concerns and does not have questions about his health - Medical doctor assesses that patient not being able to make complex medical decisions -continue wound care management -08/13/2019 have discussed in multi-disciplinary rounds that patient is on an increased dosing of Ceftolazone/Tazobactam IV as 3000 mg q8 hours due pseudomonas wound culture with multiple-drug resistance; is intermediate sensi tive to Ceftolozane/tazobactam as per send out lab reports to pharmacist and also is resistant to AVYCAZ (ceftazidime and avibactam) Amikacin S <=16 Aztreonam R >16 Cefepime R >16 Ceftazidime R >16 Ciprofloxacin R >2 Gentamicin S <=4 Imipenem R >8 Levofloxacin R >4 Tobramycin S <=4 Pip/Tazo R >64 -08/14/2019 [facility] Sameera Infectious Disease Consult advised hospitalist to call to [facility] to discuss the case and after discussing with Dr. Brown from Infectious Disease service he advises against further IV antibiotics at this time as patient already had 2 weeks IV antibiotics, and does not appear to have active infectious process per clinical history and assessments, and that patient is multi-drug resistant to antibiotics. Hospitalist discontinued Ceftolazone/Tazobactam IV. If no fevers off anibiotics, then patient may be discharged in near future without IV antibiotics -08/15/2019 to 08/06/2019: remains afebrile off antibiotics, consider discharge on 08/16/2019 Chronic indwelling Felix catheter with suspect urinary tract infection Bilateral hydronephrosis -urine output being made; felix can protect ulcers from further infection -Urine culture -Enterococcus species, sensitive to penicillin and cephalosporin but resistant to quinolones -Blood culture -negative -had been on ceftolozane/tazobactam but this is primarily for ulcer wounds Acute renal failure Hyperkalemia Secondary to acute renal impairment -acute renal failure resolved with IV fluids during this hospital stay -hyperkalemia on this admission has been treated Severe protein-calorie malnutrition: -PEG tube feeding: in the hospital patient has been Peptamen 1.5 at 45 ml/hr in addition to fluid volume from tube feeds, patient should have 150 ml of free water flushes every 4 hours (total of 900 ml per day); hospital financial foundations associate estimates that with tube feeds, patient daily intake of liquid volume should be around 1900 ml per day with the tube feeds -Patient likely should not be on Saccharomyces probiotic at this time as he is off further antibiotics Schizoid personality disorder: -brother Dk Winters to make medical decisions Anxiety: -patient is most anxious when needing to have ulcers examined and dressed because of discomfort when being moved History of DVT in the past -History of IVC filter placement -had been on Eliquis as outpatient Anemia Possible GI bleed, possible gastritis Chronic Eliquis use -s/p 1 unit of PRBC on 08/06/2019 because patient's hemoglobin was 7.5 in context of baseline Hgb of 9 to 10 -no signs of overt bleeding -patient has been on protonics -on Eliquis as no current plans for PICC or midline Hypothyroidism: -Continue levothyroxine Chronic systolic CHF (congestive heart failure): HTN (hypertension): -updated metoprolol prescriptions and dosing sent [facility] [address] [facility] [place] [id number] which is pharmacy used by patient's residential facility [facility] Discharge Diagnosis: Encephalopathy, Schizoid personality disorder, Multiple decubitus ulcers, Chronic indwelling Felix catheter with suspect urinary tract infection, Acute renal failure and Hyperkalemia (both resolved), Severe protein-calorie malnutrition, anemia, History of DVT in the past Subjective bilateral hip and also a sacral ulcer in dressings. no fevers. no chest pain. no shortness of breath. no abdominal pain. no nausea. no vomiting Review of Systems Review of Systems: All systems reviewed & are unremarkable except as noted in HPI & below Physical Exam Constitutional: + frail appearing Eyes: PERRL, conjunctivae normal, anicteric sclerae EOM intact bilaterally ENMT: external ear and nose normal, oropharynx normal Neck: normal visual inspection Respiratory: normal respiratory effort, lungs clear to auscultation Cardiovascular: Rate/Rhythm: regular rate and regular rhythm Gastrointestinal (Abdomen): normal bowel sounds, soft, nontender, no hepatosplenomegaly Musculoskeletal: Head/Neck/Chest: normocephalic and head atraumatic Skin: bilateral hip and also a sacral ulcer in dressings Psychiatric: A+Ox3, euthymic affect Genitourinary: + penis abnormality (felix) Results & Data Vital Signs (Past 12 Hours) Vital Signs Temp Pulse Resp BP Pulse Ox 08/16/19 10:09 36.6 C 103 H 18 114/74 97 08/16/19 07:20 36.6 C 103 H 18 114/74 97 08/15/19 23:00 36.5 C 91 H 19 109/74 97
--- NOTE | 2019-08-16 10:56 | Discharge Summary ---
Date of Service August 16, 2019 Admission HPI Per Admitting Provider DATE OF ADMISSION: 07/31/2019 CHIEF COMPLAINT: Altered mental status. HISTORY OF PRESENT ILLNESS: This is a 74-year-old male with past medical history significant for hypertension, chronic systolic CHF, CAD, severe malnutrition, DVT status post IVC filter, history of osteomyelitis, hypothyroidism, GERD, schizoid personality disorder, hyperlipidemia, recurrent multidrug resistant UTIs, chronic anemia, chronic decubitus wounds with wound cultures growing pseudomonas and MRSA in the past , resident of [facility], was brought in because of altered mental status. They could not wake up the patient, he was hypotensive and hypothermic and was brought in here. Currently drowsy, but arousable. The patient has baseline dementia and confusion. He says he is fine and he wants me to leave the room and goes back to sleep. He is on PEG tube feeds. Currently, temperature of 36.1, blood pressure is okay. Lactate is 1.9. WBC is 12.3. Creatinine is 4.4. UA is positive and have h multiple decubitus ulcers. I could not get any history from the patient and tried to call [facility] but not able to talk to the staff. As per POLST form, he is a full code. ALLERGIES: Iodine and onion. PAST MEDICAL HISTORY: As mentioned above. PAST SURGICAL HISTORY: History of DVT, status post IVC filter, status post PEG tube placement, status post PICC line in the past. MEDICATIONS: The patient seems to be on Tylenol 650 mg p.o. q. 6 hours p.r.n., B complex via feeding tube daily, baclofen 5 mg p.o. daily, Dulcolax 10 mg SC p.r.n., Keflex 500 mg p.o. q.i.d., divalproex 500 mg p.o. b.i.d., Colace 150 mg p.o. daily, Eliquis 5 mg p.o. b.i.d., Nexium 40 mg p.o. daily, fentanyl patch, ferrous sulfate 325 mg p.o. b.i.d., folic acid 1 mg p.o. daily, Synthroid 25 mcg p.o. daily, milk of magnesia p.r.n., melatonin 3 mg p.o. every night, Toprol-XL 25 mg p.o. daily, multivitamins daily, Perative tube feeds oxycodone 5 mg p.o. q. 6 hours, protein supplement p.o. b.i.d., risperidone 0.5 mg p.o. b.i.d., probiotic, thiamine 100 mg p.o. daily, tramadol 50 mg p.o. q.6 p.r.n. FAMILY HISTORY: Noncontributory. SOCIAL HISTORY: Currently living at [facility]. Smoking history: Unknown. No alcohol use. No substance abuse. Admission Exam Per Admitting Provider GENERAL: The patient is drowsy but arousable, currently not oriented. VITAL SIGNS: Temperature 36.1, pulse 74, respiratory rate 18, blood pressure 113/61, oxygen 98% room air. HEENT: No pallor, no icterus. NECK: No JVD, no neck masses. CARDIOVASCULAR: S1, S2 heard, regular rate and rhythm, no murmur, no gallop. RESPIRATORY SYSTEM: No neck JVD. No neck masses. ABDOMEN: Soft, bowel sounds sluggish, mild abdominal discomfort. Mild guarding. No rigidity. CENTRAL NERVOUS SYSTEM: Drowsy but arousable, not oriented and does not obey commands. EXTREMITIES: Bilateral lower extremities dressings. No edema seen. SKIN: Multiple decubitus ulcers seen. Stage IV on the left buttock, lower extremity wounds and dressing. Principal Diagnosis Encephalopathy, Schizoid personality disorder, Multiple decubitus ulcers, Chronic indwelling Felix catheter with suspect urinary tract infection, Acute renal failure and Hyperkalemia (both resolved), Severe protein-calorie malnutrition, anemia, History of DVT in the past Discharge Exam Constitutional + frail appearing Eyes PERRL, conjunctivae normal, anicteric sclerae EOM intact bilaterally ENMT external ear and nose normal, oropharynx normal Neck normal visual inspection Respiratory normal respiratory effort, lungs clear to auscultation Cardiovascular Rate/Rhythm: regular rate and regular rhythm Gastrointestinal (Abdomen) normal bowel sounds, soft, nontender, no hepatosplenomegaly Musculoskeletal Head/Neck/Chest: normocephalic and head atraumatic Skin bilateral hip and also a sacral ulcer in dressings Neurologic PERRL, EOMI, accommodation nl, no face palsy, no dysarthria Psychiatric A+Ox3, euthymic affect Genitourinary + penis abnormality (felix) Discharge Data Allergies Allergy/AdvReac Type Severity Reaction Status Date / Time iodine Allergy Unknown Unknown Verified 07/31/19 03:49 onion AdvReac Intermediate vomitting Verified 07/31/19 03:49 Consultations 07/31/19 03:48 ED Decision to Admit Stat 07/31/19 05:42 Consult Case Management - Discharge Planning Routine 07/31/19 08:00 Consult Infectious Diseases Routine Consult Nephrology Routine Consult Wound Care Provider Routine 08/07/19 15:18 Consult Gastroenterology Routine 08/07/19 16:03 Consult Orthopedic Surgery Routine Procedures Performed Operation Date: 08/08/19 16:30 <No data on this case meets the specified criteria> Ordered Studies 07/31/19 05:09 CT abd pelvis wo con Urgent 07/31/19 11:51 CT pelvis wo con Routine Hospital Course (1) Encephalopathy: -Encephalopathy Likely secondary to possible sepsis due to complicated UTI- Enterococcus with Felix catheter and multiple decubiti infected ulcers-- Morganella, E coli, Pseudomonas -Was admitted from [facility] with possible change in mental status -currently communicating at his baseline -Urine culture: Enterococcus Multiple decubitus ulcers -on admission there are: Pressure ulcers of medial sacrum, stage 3; right lateral hip, stage 4; unstageable right scapular ulcer, left medial lower leg deep tissue injury, likely right lower lateral leg pressure injury; unstageable right medial foot and ankle pressure ulcer; and stage 4 pressure ulcer to left lateral hip; Has significant sacral decubiti, stage IV -Wound cultures on hips/groin: Morganella, E coli, Pseudomonas -initially was on Daptomycin and Zosyn -currently on Ceftolazone/Tazobactam IV -Patient had been seen initially by orthopedic service and recommend aspiration of right hip joint but Radiology service does not recommend attempt to aspirate as there is no fluid collection on CT hip -Infectious disease consult from [facility] in [place] Dr. Adam recommended intermodal truck driver IV antibiotics as per hospitalist notes on 08/07/2019 with subsequent comments by Neha Brasher Infectious Disease consult -08/12/2019: Patient seen and examined during the day with wound care nurses. Patient has bilateral large ulcers of the hips with no drainage seen. The sacral area ulcer has some serosanguineous fluid on surface seen during dressing changes. Patient is awake and alert but known to depend on his brother Dk Winters to make medical decisions. Had discussed with patient's brother Dk by phone (reachable by [phone] or [phone]) and telephone consent obtained telephone consent for midline of PICC line. Patient otherwise denies other concerns and does not have questions about his health - Medical doctor assesses that patient not being able to make complex medical decisions -continue wound care management -08/13/2019 have discussed in multi-disciplinary rounds that patient is on an increased dosing of Ceftolazone/Tazobactam IV as 3000 mg q8 hours due pseudomonas wound culture with multiple-drug resistance; is intermediate sensitive to Ceftolozane/tazobactam as per send out lab reports to pharmacist and also is resistant to AVYCAZ (ceftazidime and avibactam) Amikacin S <=16 Aztreonam R >16 Cefepime R >16 Ceftazidime R >16 Ciprofloxacin R >2 Gentamicin S <=4 Imipenem R >8 Levofloxacin R >4 Tobramycin S <=4 Pip/Tazo R >64 -08/14/2019 [facility] Infectious Disease Consult advised hospitalist to call to [facility] to discuss the case and after discussing with Dr. Brown from Infectious Disease service he advises against further IV antibiotics at this time as patient already had 2 weeks IV antibiotics, and does not appear to have active infectious process per clinical history and assessments, and that patient is multi-drug resistant to antibiotics. Hospitalist discontinued Ceftolazone/Tazobactam IV. If no fevers off anibiotics, then patient may be discharged in near future without IV antibiotics -08/15/2019 to 08/06/2019: remains afebrile off antibiotics, consider discharge on 08/16/2019 Chronic indwelling Felix catheter with suspect urinary tract infection Bilateral hydronephrosis -urine output being made; felix can protect ulcers from further infection -Urine culture -Enterococcus species, sensitive to penicillin and cephalosporin but resistant to quinolones -Blood culture -negative -had been on ceftolozane/tazobactam but this is primarily for ulcer wounds Acute renal failure Hyperkalemia Secondary to acute renal impairment -acute renal failure resolved with IV fluids during this hospital stay -hyperkalemia on this admission has been treated Severe protein-calorie malnutrition: -PEG tube feeding: in the hospital patient has been Peptamen 1.5 at 45 ml/hr in addition to fluid volume from tube feeds, patient should have 150 ml of free water flushes every 4 hours (total of 900 ml per day); hospital campus administrative assistant estimates that with tube feeds, patient daily intake of liquid volume should be around 1900 ml per day with the tube feeds -Patient likely should not be on Saccharomyces probiotic at this time as he is off further antibiotics Schizoid personality disorder: -brother Dk Winters to make medical decisions Anxiety: -patient is most anxious when needing to have ulcers examined and dressed because of discomfort when being moved History of DVT in the past -History of IVC filter placement -had been on Eliquis as outpatient Anemia Possible GI bleed, possible gastritis Chronic Eliquis use -s/p 1 unit of PRBC on 08/06/2019 because patient's hemoglobin was 7.5 in context of baseline Hgb of 9 to 10 -no signs of overt bleeding -patient has been on protonics -on Eliquis as no current plans for PICC or midline Hypothyroidism: -Continue levothyroxine Chronic systolic CHF (congestive heart failure): HTN (hypertension): -updated metoprolol prescriptions and dosing sent [facility] [address] [facility] [place] [id number] which is pharmacy used by patient's alf facility [facility] Discharge Diagnosis: Encephalopathy, Schizoid personality disorder, Multiple decubitus ulcers, Chronic indwelling Felix catheter with suspect urinary tract infection, Acute renal failure and Hyperkalemia (both resolved), Severe protein-calorie malnutrition, anemia, History of DVT in the past Total Time Total Time Spent Total Time Spent (In Minutes): 40 minutes Total Time Includes: Examination of the Patient, Discharge Planning, Medication Reconciliation and Communication With Other Providers Discharge Plan Discharge Items Patient Disposition: Transfer [facility] Reason For Visit: AMS Discharge Diagnosis: Encephalopathy, Schizoid personality disorder, Multiple decubitus ulcers, Chronic indwelling Felix catheter with suspect urinary tract infection, Acute renal failure and Hyperkalemia (both resolved), Severe protein-calorie malnutrition, anemia, History of DVT in the past Condition on Discharge: Good Activity: Resume your previous activity Non-emergency contact: Primary Care Provider Call non-emergency contact if: you have any medication questions Follow-up/Referrals: Sameera Villa [Primary Care Provider] - Diet: Clear liquid Diet Comment: patient is on PEG tube feeds, may take ice chips or sips of water by mouth Addtl Attending Provider Instructions: in addition to fluid volume from tube feeds, patient should have 150 ml of free water flushes every 4 hours (total of 900 ml per day); hospital campus administrative assistant estimates that with tube feeds, patient daily intake of liquid volume should be around 1900 ml per day with the tube feeds in the hospital patient has been Peptamen 1.5 at 45 ml/hr Patient likely should not be on Saccharomyces probiotic at this time as he is off further antibiotics updated metoprolol prescriptions and dosing sent [facility] [address] [facility] [place] [id number] which is pharmacy used by patient's alf facility [facility] Pending Studies at Discharge: No Stand-Alone Forms: My [facility] Skilled Items Patient informed of condition?: Yes DNR: No Discharge Level of Care: Skilled Communicable Disease: No Discharge Prognosis: Stable Lines: None Urinary Catheter: Yes Medications and DC Order Prescriptions: New metoprolol tartrate 25 mg Tablet 12.5 mg PO BID 30 Days Qty: 30 RF: 0 Continued melatonin 3 mg Tablet 3 mg PO HS RF: 0 levothyroxine [Synthroid] 25 mcg tablet 25 mcg PO DAILY RF: 0 folic acid 1 mg Tablet 1 mg PO DAILY RF: 0 fentanyl [Duragesic] 25 mcg/hr patch 72 hour 1 patch topical [id number] RF: 0 docusate sodium 50 mg/5 mL Liquid 100 mg PO BID RF: 0 acetaminophen [Tylenol] 325 mg Tablet 650 mg PO Q4 MDD 3gm/24hr PRN (Reason: pain 1-3) RF: 0 thiamine HCl (vitamin B1) 100 mg Tablet 100 mg PO DAILY RF: 0 tramadol [Ultram] 50 mg tablet 50 mg PO Q6 PRN (Reason: PAIN 4-10) RF: 0 baclofen 10 mg Tablet 5 mg PO TID RF: 0 bisacodyl [Dulcolax (bisacodyl)] 10 mg Suppository 10 mg SC UD PRN (Reason: 3RD DAY WITH NO BM) RF: 0 divalproex 125 mg capsule, delayed rel sprinkle 500 mg PO BID RF: 0 Eliquis 5 mg tablet 5 mg PO BID RF: 0 B [id number] Tablet 1 tab feeding tube DAILY RF: 0 magnesium hydroxide [Milk of Magnesia] 400 mg/5 mL Suspension 30 ml feeding tube DAILY PRN (Reason: Constipation) RF: 0 risperidone [Risperdal] 0.5 mg Tablet 0.5 mg feeding tube BID RF: 0 Nexium Packet [address] for susp in packet 40 mg PO DAILY RF: 0 protein supplement Liquid 1 ea PO BID RF: 0 ferrous sulfate 300 mg (60 mg iron)/5 mL Liquid 325 mg feeding tube BID RF: 0 Perative 0.067-1.30 gram-kcal/mL Liquid 1 ea feeding tube UD RF: 0 Stress Formula with Zinc Tablet 1 tab PO DAILY RF: 0 acetaminophen 325 mg Tablet 650 mg PO Q6H MDD 3gm/24hr PRN (Reason: temp>101) RF: 0 Discontinued metoprolol succinate [Toprol XL] 25 mg tablet extended release 24 hr 25 mg PO UD RF: 0 oxycodone [Roxicodone] 5 mg tablet 5 mg PO Q6H RF: 0 cephalexin [Keflex] 500 mg Capsule 500 mg feeding tube QID RF: 0 Saccharomyces boulardii 250 mg Capsule 250 mg PO BID RF: 0 Discharge Orders: Discharge Order (Routine); Ordered 08/16/19 Ordered By: Kyle Smith Admission Data Admit Date/Time: 07/31/19 04:56 Attending Provider: Kyle Smith Admit Provider: Tito Dash Primary Care Provider: Sameera Villa Other Providers: Allen, ; Areli Reyes ; Tito Dash ; Charles Ramirez ; Marsha Roman ; Manny Winchester Michelle M. ; Jordan Saavedra ; Indira Erickson ; Teja Dior ; Aislinn Fairbanks ; Pablo Frank Other Interventions: Discharge Summary Assessment (RN) Last Done: 08/16/19 10:09
== END 2019-08-16 13:24 | DRG 871 ==
LOC: ED 01:55 → 2W 04:56 → SUATTDRO 04:56 → 2W 05:14

== ENCOUNTER 2019-09-20 04:35 | Inpatient (IN) ==
[2019-09-20] MEDS ORDERED: SODIUM CHLORIDE 0.9% 1000ML 1,000 ML IV ONE (04:44)
[2019-09-20] MEDS ORDERED: SODIUM CHLORIDE 0.9% 250 ML IV PRN ×4 (04:44→16:39)
--- NOTE | 2019-09-20 04:58 | Emergency Department Note ---
Entered by Saud Rojas acting as a scribe for ED Provider Note Name: Ap Winters Age: 74 Arrives Via: EMS Informant: EMS CC: Bleeding HPI: The patient is a 74 year old male who presents to the emergency department with complaints of persistent bleeding beginning this morning. Per EMS, the patient lives at [facility]. He states that the patient was found with a large amount of blood on the bed, and he notes that the patient was found to be bleeding heavily from the left groin. He reports that there was a left inner groin ulcer that was bleeding. He states that the ulcer was packed with gauze with cessation of bleeding. He notes that the patient was hypotensive and tachycardic for EMS. He reports that the patient did not receive any medications prior to arrival. HPI limited secondary to severe psychiatric illness. ROS: ROS limited secondary to severe psychiatric illness. Past Medical History: Please see past medical history. Past Surgical History: Appendectomy Family History: None Social History: Single, lives in [facility], Former smoker Home Medications: Please see medication list. Allergies: Iodine Physical: Vitals: BP 79/59, Pulse 127, Resp 24, O2 Sat 98 Exam: GENERAL: Patient is cachectic appearing and in no acute distress. EYES: No scleral icterus, unremarkable pupils. ENT: Mucous membranes moist, no nasal congestion. NECK: No masses appreciated, no meningismus, trachea is midline. RESPIRATORY: No dyspnea. Clear to auscultation and equal bilaterally. No wheeze, no rhonchi. CARDIOVASCULAR: Regular rhythm and tachycardic. No murmurs, rubs, gallops appreciated. GASTROINTESTINAL: Abdomen soft, non-tender, no peritonitis. Bowel sounds positive. No masses appreciated. BACK: No midline tenderness, no CVA tenderness EXTREMITIES: No cyanosis, no edema. Severe contractures of legs. Moves upper extremities with rigidity, does not move lower extremities. Boot on left leg. NEUROLOGIC: No acute motor or sensory deficits, no focal weakness, cranial nerves grossly intact. Altered. SKIN: No rash, no jaundice, diaphoretic, pale. Large deep ulcerating area in the left inner groin with mild venous oozing. No arterial bleeding appreciated. ED Course: Prior Medical Record, Triage/Nursing Notes, Medications, Allergies reviewed by Me 0439: The patient was evaluated in room B2. A complete history and physical exam was performed. 0507: I rechecked the patient. His blood pressure is improving. 0559[facility]: Upon reevaluation, the patient is stable. I discussed the findings and the treatment plan with the patient. He expresses agreement and understanding. I spoke with Dr. King of the [facility]. The patient will be evaluated for further management. Vital Signs: reviewed and remarkable for hypotensive, tachycardic Labs: Reviewed and remarkable for mild lactic acidosis, stable anemia Interventions: saline lock, nss bolus 1 L IV Imaging: CHEST X-RAY: X ray results are stated below per my interpretation: Chest: 1 view: No infiltrate, no effusion, normal cardiac border. EKG: Per My Interpretation: Indication Tachy: Sinus Tachy 107 bpm, qtc unable to determine. Very poor baseline. Appears to have RBBB and no ectopy. No STEMI appreciated. Compared to EKG 07/31/19 difficult to compare but RBBB seems similar Consults: 0607: I reviewed the patient's case with Dr. King - [facility]. He will evaluate the patient for further management. Blood pressure: Normal. No Referral necessary Disposition: Hospitalization Differential: Blood Loss Anemia, Sepsis, Infectious (UTI/Pneumonia/Meningitis/etc), Metabolic/Electrolyte Abnormality, Cardiac, Dehydration, amongst other pathologies entertained. Medical Decision Makin yr old very unwell male on eliquis with multiple extensive medical and psychiatric issues arrives tachycardic and hypotensive following episode of heavy bleeding from left inguinal wound/pressure ulcer. Minimal bleeding from area currently and gauze left in place for further pressure/monitoring. Given fluid bolus with improvement BP and HR. Labs with stable anemia at present, though elevated WBC noted. Given extensive infectious history I opted for getting cultures and lactate. Lactate mildly elevated likely secondary to hypotension on arrival. Given concern already anemic and the fact BP improved will hold off on further IV fluids while awaiting repeat labs and further monitoring. I do not see obvious source of infection at this time. Seems unlikely cardiac in nature. Dehydration possible given elevated BUN. Hospitalist in to evaluate further for management. Impression: Hypotension Hemorrhage from wound Leukocytosis Ap Angeles MD The scribe's documentation has been prepared under my direction and personally reviewed by me in its entirety. I confirm that the note above accurately reflects all work, treatment, procedures, and medical decision making performed by me. Impression & Plan Hypotension, Hemorrhage from wound, Leukocytosis Past Med/Surg History Social History Preferred Language: Nepali Communication Ability: Impaired It Applications Developer Required: No Beliefs That Will Affect Care: None marital status: Single Current Living Situation: Halfway Current Living Situation Comment: [place] Feels Safe at Home: Yes Smoking Status: Unknown if ever smoked Results & Data Vital Signs Vital Signs - 24 hr 09/20/19 04:44 09/20/19 06:07 09/20/19 07:16 Temperature 36.9 C Temperature Source Oral Pulse Rate 127 H Pulse Rate [Apical] 106 H 100 H Pulse Rhythm [Apical] Regular Respiratory Rate 22 22 14 Respiratory Effort / Characteristics Spontaneous Non-Labored Respiratory Depth Normal Normal Blood Pressure 79/59 L Blood Pressure [Right Arm] 103/69 89/71 L 102/52 L Blood Pressure Mean 65 Blood Pressure Mean [Right Arm] 80 77 68 Blood Pressure Position [Right Arm] Lying Lying Pulse Oximetry 100 100 99 Oxygen Delivery Method Nasal Cannula Nasal Cannula Oxygen Flow Rate 2 2 Sepsis Recent Fever Within 48 Hours No Sepsis New/Unexplained Change in Mental Status No Sepsis Action Taken by Nursing No Action Required Home Medications Current Medication List: was personally reviewed by me Laboratory Data Attestation: I reviewed the patient's lab results. Result diagrams: 09/20/19 06:28 09/20/19 04:49 Lab Results 09/20/19 09/20/19 09/20/19 Range/Units 04:49 04:49 04:49 WBC 16.38 H (4.8-10.8) K/uL RBC 3.30 L (4.7-6.1) M/uL Hgb 9.4 L (14.0-18.0) g/dL Hct 29.1 L (42-52) % MCV 88.2 (80-100) fL MCH 28.5 (25-34) pg MCHC 32.3 (32-36) g/dL RDW Std Deviation 52.3 H (36.4-46.3) fL RDW Coeff of Lucila 16.2 H (11.5-14.5) % Plt Count 582 H (130-400) K/uL MPV 9.5 (7.4-10.4) fL Immature Gran % (Auto) 0.3 % Neut % (Auto) 72.4 % Lymph % (Auto) 18.2 % [place] % (Auto) 7.4 % Eos % (Auto) 1.5 % Baso % (Auto) 0.2 % Immature Gran # (Auto) 0.05 H (0.00-0.02) K/uL Neut # (Auto) 11.84 H (1.4-6.5) K/uL Lymph # (Auto) 2.98 (1.2-3.4) K/uL [place] # (Auto) 1.22 H (0.11-0.59) K/uL Eos # (Auto) 0.25 (0-0.5) K/uL Baso # (Auto) 0.04 (0-0.2) K/uL PT 12.1 H (9.0-12.0) Seconds INR 1.2 H (0.9-1.1) APTT 26.3 (21.0-31.0) Seconds PTT Ratio 1.0 Sodium (136-145) mmol/L Potassium (3.5-5.1) mmol/L Chloride (98-107) mmol/L Carbon Dioxide (21-32) mmol/L Anion Gap (3-11) BUN (7-18) mg/dl Creatinine (0.6-1.4) mg/dl Est Cr Clr Drug Dosing ml/min Est GFR ( Amer) Est GFR (Non-Af Amer) BUN/Creatinine Ratio (10-20) Glucose (70-99) mg/dl Lactate (0.4-2.0) mmol/L Calcium (8.5-10.1) mg/dl Magnesium (1.8-2.4) mg/dl Total Bilirubin (0.2-1) mg/dl Direct Bilirubin (0-0.2) mg/dl AST (15-37) U/L ALT (12-78) U/L Alkaline Phosphatase (45-117) U/L Troponin I (0-0.045) ng/ml Total Protein (6.4-8.2) gm/dl Albumin (3.4-5.0) gm/dl TSH (0.300-4.500) uIu/ml Free T4 (0.8-1.6) ng/dl Urine Color Urine Appearance (Clear) Urine pH (4.5-7.5) Ur Specific [place] (1.000-1.030) Urine Protein (Negative) Urine Glucose (UA) (Negative) Urine Ketones (Negative) Urine Blood (Negative) Urine Nitrite (Negative) Urine Bilirubin (Negative) Urine Urobilinogen (Negative) Ur Leukocyte Esterase (Negative) Urine RBC (0-4) /hpf Urine WBC (0-5) /hpf Ur Epithelial Cells (0-5) /lpf Urine Bacteria (Negative) Hyaline Casts (0-5) /lpf Urine Mucus (None Prsent) Valproic Acid (50-100) mcg/ml Blood Type A Positive Antibody Screen NEGATIVE Crossmatch See Detail 09/20/19 09/20/19 09/20/19 Range/Units 04:49 05:40 06:28 WBC (4.8-10.8) K/uL RBC (4.7-6.1) M/uL Hgb (14.0-18.0) g/dL Hct (42-52) % MCV (80-100) fL MCH (25-34) pg MCHC (32-36) g/dL RDW Std Deviation (36.4-46.3) fL RDW Coeff of Lucila (11.5-14.5) % Plt Count (130-400) K/uL MPV (7.4-10.4) fL Immature Gran % (Auto) % Neut % (Auto) % Lymph % (Auto) % [place] % (Auto) % Eos % (Auto) % Baso % (Auto) % Immature Gran # (Auto) (0.00-0.02) K/uL Neut # (Auto) (1.4-6.5) K/uL Lymph # (Auto) (1.2-3.4) K/uL [place] # (Auto) (0.11-0.59) K/uL Eos # (Auto) (0-0.5) K/uL Baso # (Auto) (0-0.2) K/uL PT (9.0-12.0) Seconds INR (0.9-1.1) APTT (21.0-31.0) Seconds PTT Ratio Sodium 138 (136-145) mmol/L Potassium 4.0 (3.5-5.1) mmol/L Chloride 105 (98-107) mmol/L Carbon Dioxide 23 (21-32) mmol/L Anion Gap 10.0 (3-11) BUN 40 H (7-18) mg/dl Creatinine 1.02 (0.6-1.4) mg/dl Est Cr Clr Drug Dosing 54.0 ml/min Est GFR ( Amer) 84.1 Est GFR (Non-Af Amer) 72.6 BUN/Creatinine Ratio 38.9 H (10-20) Glucose 148 H (70-99) mg/dl Lactate 2.6 H* (0.4-2.0) mmol/L Calcium 8.7 (8.5-10.1) mg/dl Magnesium 1.8 (1.8-2.4) mg/dl Total Bilirubin 0.2 (0.2-1) mg/dl Direct Bilirubin < 0.1 (0-0.2) mg/dl AST 11 L (15-37) U/L ALT 16 (12-78) U/L Alkaline Phosphatase 96 (45-117) U/L Troponin I < 0.015 (0-0.045) ng/ml Total Protein 7.7 (6.4-8.2) gm/dl Albumin 2.2 L (3.4-5.0) gm/dl TSH (0.300-4.500) uIu/ml Free T4 (0.8-1.6) ng/dl Urine Color Yellow Urine Appearance Turbid A (Clear) Urine pH 6.5 (4.5-7.5) Ur Specific [place] 1.020 (1.000-1.030) Urine Protein 2+ H (Negative) Urine Glucose (UA) Negative (Negative) Urine Ketones Negative (Negative) Urine Blood 1+ H (Negative) Urine Nitrite Negative (Negative) Urine Bilirubin Negative (Negative) Urine Urobilinogen Negative (Negative) Ur Leukocyte Esterase Negative (Negative) Urine RBC 10-30 H (0-4) /hpf Urine WBC 10-30 H (0-5) /hpf Ur Epithelial Cells 5-10 H (0-5) /lpf Urine Bacteria 2+ H (Negative) Hyaline Casts 10-30 H (0-5) /lpf Urine Mucus Present A (None Prsent) Valproic Acid (50-100) mcg/ml Blood Type Antibody Screen Crossmatch 09/20/19 09/20/19 09/20/19 Range/Units 06:28 06:28 06:28 WBC (4.8-10.8) K/uL RBC (4.7-6.1) M/uL Hgb 8.9 L (14.0-18.0) g/dL Hct 27.6 L (42-52) % MCV (80-100) fL MCH (25-34) pg MCHC (32-36) g/dL RDW Std Deviation (36.4-46.3) fL RDW Coeff of Lucila (11.5-14.5) % Plt Count (130-400) K/uL MPV (7.4-10.4) fL Immature Gran % (Auto) % Neut % (Auto) % Lymph % (Auto) % [place] % (Auto) % Eos % (Auto) % Baso % (Auto) % Immature Gran # (Auto) (0.00-0.02) K/uL Neut # (Auto) (1.4-6.5) K/uL Lymph # (Auto) (1.2-3.4) K/uL [place] # (Auto) (0.11-0.59) K/uL Eos # (Auto) (0-0.5) K/uL Baso # (Auto) (0-0.2) K/uL PT (9.0-12.0) Seconds INR (0.9-1.1) APTT (21.0-31.0) Seconds PTT Ratio Sodium (136-145) mmol/L Potassium (3.5-5.1) mmol/L Chloride (98-107) mmol/L Carbon Dioxide (21-32) mmol/L Anion Gap (3-11) BUN (7-18) mg/dl Creatinine (0.6-1.4) mg/dl Est Cr Clr Drug Dosing ml/min Est GFR ( Amer) Est GFR (Non-Af Amer) BUN/Creatinine Ratio (10-20) Glucose (70-99) mg/dl Lactate (0.4-2.0) mmol/L Calcium (8.5-10.1) mg/dl Magnesium (1.8-2.4) mg/dl Total Bilirubin (0.2-1) mg/dl Direct Bilirubin (0-0.2) mg/dl AST (15-37) U/L ALT (12-78) U/L Alkaline Phosphatase (45-117) U/L Troponin I (0-0.045) ng/ml Total Protein (6.4-8.2) gm/dl Albumin (3.4-5.0) gm/dl TSH 7.000 H (0.300-4.500) uIu/ml Free T4 1.28 (0.8-1.6) ng/dl Urine Color Urine Appearance (Clear) Urine pH (4.5-7.5) Ur Specific [place] (1.000-1.030) Urine Protein (Negative) Urine Glucose (UA) (Negative) Urine Ketones (Negative) Urine Blood (Negative) Urine Nitrite (Negative) Urine Bilirubin (Negative) Urine Urobilinogen (Negative) Ur Leukocyte Esterase (Negative) Urine RBC (0-4) /hpf Urine WBC (0-5) /hpf Ur Epithelial Cells (0-5) /lpf Urine Bacteria (Negative) Hyaline Casts (0-5) /lpf Urine Mucus (None Prsent) Valproic Acid 18 L (50-100) mcg/ml Blood Type Antibody Screen Crossmatch Administered Medications Parenteral Electrolytes (Normosol-R) 1,000 mls @ 500 mls/hr IV .Q2H ONE Stop: 09/20/19 08:17 Last Admin: 09/20/19 06:28 Dose: 500 mls/hr Documented by: [id number] Tobramycin Sulfate 440 mg/ (Dextrose) 111 mls @ 100 mls/hr IV Q24H DIOR Stop: 09/27/19 06:44 Last Admin: 09/20/19 07:16 Dose: 100 mls/hr Documented by: [id number] Daptomycin 250 mg/ Syringe 5 mls @ 2.5 mls/min IV Q24H DIOR; Protocol Stop: 09/27/19 06:59 Last Admin: 09/20/19 07:10 Dose: 2.5 mls/min Documented by: [id number] Ioversol (Optiray 320 100ml) 94 ml IV ONCE PRN PRN Reason: Interaction Checking Stop: 09/24/19 07:16 Last Admin: 09/20/19 07:18 Dose: 94 ml Documented by: [id number] Discontinued Medications Sodium Chloride (Nss 1000ml) 1,000 mls @ 999 mls/hr IV .Q1H1M ONE Stop: 09/20/19 05:44 Last Infusion: 09/20/19 06:03 Dose: 0 mls/hr Documented by: [id number] Admin: 09/20/19 05:00 Dose: 999 mls/hr Documented by: [id number] Lactated Ringer's (Lr) 1,000 mls @ 500 mls/hr IV .Q2H ONE Stop: 09/20/19 08:12 Last Admin: 09/20/19 07:17 Dose: Not Given Documented by: [id number] Discharge Plan Visit Data Chief Complaint: Bleeding Stated Complaint: bleeding ED Provider: Ap Angeles Discharge Problem: Hypotension, Hemorrhage from wound, Leukocytosis Patient Disposition: Being Evaluated by Hospitalist Forms Stand Alone Forms: [facility] Prescriptions Prescriptions: No Action docusate sodium 100 mg Capsule 100 mg PO BID RF: 0 oxycodone 5 mg Tablet 5 mg PO Q6H PRN (Reason: Pain (Scale Score 4-10)) RF: 0 melatonin 3 mg Tablet 3 mg PO HS RF: 0 levothyroxine [Synthroid] 25 mcg tablet 25 mcg PO DAILY RF: 0 folic acid 1 mg Tablet 1 mg PO DAILY RF: 0 fentanyl [Duragesic] 25 mcg/hr patch 72 hour 1 patch topical [id number] RF: 0 acetaminophen [Tylenol] 325 mg Tablet 650 mg PO Q4 MDD 3gm/24hr PRN (Reason: pain 1-3) RF: 0 thiamine HCl (vitamin B1) 100 mg Tablet 100 mg PO DAILY RF: 0 tramadol [Ultram] 50 mg tablet 50 mg PO Q6 PRN (Reason: PAIN 4-10) RF: 0 baclofen 10 mg Tablet 5 mg PO TID RF: 0 divalproex 125 mg capsule, delayed rel sprinkle 500 mg PO BID RF: 0 Eliquis 5 mg tablet 5 mg PO BID RF: 0 risperidone [Risperdal] 0.5 mg Tablet 0.5 mg PO BID RF: 0 Nexium Packet [address] for susp in packet 40 mg PO DAILY RF: 0 protein supplement Liquid 1 ea PO BID RF: 0 Perative 0.067-1.30 gram-kcal/mL Liquid 1 ea feeding tube UD RF: 0 Stress Formula with Zinc Tablet 1 tab PO DAILY RF: 0 acetaminophen 325 mg Tablet 650 mg PO Q6H MDD 3gm/24hr PRN (Reason: temp>101) RF: 0 ferrous sulfate 325 mg (65 mg iron) Tablet 325 mg PO BID RF: 0 metoprolol tartrate 25 mg Tablet 12.5 mg PO BID RF: 0 Referrals Referrals: Sameera Villa [Primary Care Provider] - Discharge Problem: Hypotension Qualifiers: Hypotension type: unspecified hypotension type Qualified Code(s): I95.9 - Hypotension, unspecified Leukocytosis Qualifiers: Leukocytosis type: unspecified Qualified Code(s): D72.829 - Elevated white blood cell count, unspecified The scribe's documentation has been prepared under my direction and personally reviewed by me in its entirety. I confirm that the note above accurately reflects all work, treatment, procedures, and medical decision making performed by me.
[2019-09-20 05:15] LABS: Basophils # (auto) 0.04 K/uL (0-0.2); Basophils % (auto) 0.2 %; Eosinophils # (auto) 0.25 K/uL (0-0.5); Eosinophils % (auto) 1.5 %; Hematocrit (blood only) 29.1 % (42-52); Hemoglobin 9.4 g/dL (14.0-18.0); Immature Granulocytes # (auto) 0.05 K/uL (0.00-0.02); Immature Granulocytes % (auto) 0.3 %; Lymphocytes # (auto) 2.98 K/uL (1.2-3.4); Lymphocytes % (auto) 18.2 %; Mean Corpuscular Hemoglobin 28.5 pg (25-34); Mean Corpuscular Hgb Conc 32.3 g/dL (32-36); Mean Corpuscular Volume 88.2 fL (80-100); Mean Platelet Volume 9.5 fL (7.4-10.4); Monocytes # (auto) 1.22 K/uL (0.11-0.59); Monocytes % (auto) 7.4 %; Neutrophils # (auto) 11.84 K/uL (1.4-6.5); Neutrophils % (auto) 72.4 %; Platelet Count 582 K/uL (130-400); RDW Coefficient of Variation 16.2 % (11.5-14.5); RDW Standard Deviation 52.3 fL (36.4-46.3); White Blood Count 16.38 K/uL (4.8-10.8)
[2019-09-20 05:23] LABS: INR 1.2 (0.9-1.1); Partial Thromboplastin Time 26.3 Seconds (21.0-31.0); Prothrombin Time 12.1 Seconds (9.0-12.0)
[2019-09-20 05:32] LABS: Alanine Aminotransferase 16 U/L (12-78); Albumin Level 2.2 gm/dl (3.4-5.0); Aspartate Aminotransferase 11 U/L (15-37); BUN Creatinine Ratio 38.9 (10-20); Bilirubin Direct < 0.1 mg/dl (0-0.2); Blood Urea Nitrogen 40 mg/dl (7-18); Calcium 8.7 mg/dl (8.5-10.1); Carbon Dioxide 23 mmol/L (21-32); Chloride 105 mmol/L (98-107); Est GFR (African American) 84.1; Est GFR (Non-African American) 72.6; Glucose 148 mg/dl (70-99); Magnesium 1.8 mg/dl (1.8-2.4); Sodium 138 mmol/L (136-145)
[2019-09-20 05:37] LABS: Alkaline Phosphatase 96 U/L (45-117); Bilirubin,Total 0.2 mg/dl (0.2-1); Total Protein 7.7 gm/dl (6.4-8.2); Troponin I < 0.015 ng/ml (0-0.045)
[2019-09-20] MEDS ORDERED: LACTATED RINGER'S 1,000 ML IV ONE (06:13)
[2019-09-20] MEDS ORDERED: NORMOSOL-R 1,000 ML IV ONE (06:18)
[2019-09-20] MEDS ORDERED: AMIKACIN CONSULT ACTIVE STA (06:24)
[2019-09-20 06:25] LABS: Appearance Urine Turbid (Clear); Bilirubin Urine Negative (Negative); Blood Urine 1+ (Negative); Color Urine Yellow; Glucose Urine UA Negative (Negative); Ketones Urine Negative (Negative); Leukocyte Esterase Urine Negative (Negative); Nitrite Urine Negative (Negative); Protein Urine 2+ (Negative); Urobilinogen Urine Negative (Negative); pH Urine 6.5 (4.5-7.5)
[2019-09-20 06:31] LABS: Mucus Urine Present (None Prsent)
[2019-09-20 06:32] LABS: Bacteria Urine 2+ (Negative)
[2019-09-20 06:39] LABS: Hematocrit (blood only) 27.6 % (42-52); Hemoglobin 8.9 g/dL (14.0-18.0)
[2019-09-20] MEDS ORDERED: TOBRAMYCIN CONSULT ACTIVE PRN (06:44)
[2019-09-20] MEDS ORDERED: TOBRAMYCIN SULFATE IV SCH (06:45)
[2019-09-20] MEDS ORDERED: DEXTROSE 5% IV SCH (06:45)
--- NOTE | 2019-09-20 06:50 | History & Physical Report ---
Date of Service September 20, 2019 Assessment & Plan (1) Severe sepsis: SIRS plus lactic acidosis ? secondary to infected decubitus wounds, L groin wound hx MRSA, hx MDR Pseudomonas on previous cultures Left groin bleed hx PE/DVT status post IVC filter placement on Eliquis Hemoglobin currently at baseline Hypotension Secondary to illness Medications contributory History of CAD/PVD as per records Schizoid personality/mood disorder Chronic pain on fentanyl patch Hyperglycemia secondary to prediabetes, hemoglobin A1c of 5.12 August 2019 PCU Cultures, Daptomycin, Tobramycin for now IVF, follow lactic acid ID consult RE sepsis Appropriate to hold antihypertensives, Fentanyl patch for now given borderline BP CT abdomen pelvis RE groin discomfort/bleed Hold Eliquis given groin bleed Trend H&H, transfuse PRBC if hemoglobin less than 8 and or symptomatic anemia (hx CAD/PVD as per records) DVT prophylaxis. SCDs while Eliquis on hold Full code as per patient's brother/POA, Mr. Dk Winters. He requests updates (Contact numbers [phone]) Total critical time was 50 minutes. History of Present Illness Chief Complaint: Cut off my finger as per patient Left groin bleed as per records Primary Care Provider: [place] [facility] History obtained from patient, family, and records. Limited history from patient secondary to psychosis. 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 difficile, chronic decubitus wounds, hx osteomyelitis of the right hip status post surgery, hypothyroidism, chronic pain on narcotics, history of MRSA as per records, past tobacco abuse. Recent confinement July 31, 2019 to August 16, 2019 for encephalopathy secondary to sepsis secondary to complicated UTI. Patient completed Zerbaxa Rx inpatient. Patient subsequent discharge back to [facility] half-way. Patient noted to have bleeding from left groin wound last night. Patient unable to answer questions regarding chest pain, S OB, cough, abdominal pain. Patient supposed to be evaluated by wound care center next week as per brother. At the ER, SBP noted to be 70s to 80s at some point. IVF bolus given at the ER. 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 Allergies Allergy/AdvReac Type Severity Reaction Status Date / Time iodine Allergy Unknown Unknown Verified 09/20/19 05:00 onion AdvReac Intermediate vomitting Verified 09/20/19 05:00 Home Medications Home Medications Medication Instructions Recorded Confirmed Type Eliquis 5 mg PO BID 03/14/19 09/20/19 History acetaminophen [Tylenol] 650 mg PO Q4 PRN MDD 3gm/24hr 03/14/19 09/20/19 History baclofen 5 mg PO TID 03/14/19 09/20/19 History divalproex 500 mg PO BID 03/14/19 09/20/19 History fentanyl [Duragesic] 1 patch TOPICAL [id number] 03/14/19 09/20/19 History folic acid 1 mg PO DAILY 03/14/19 09/20/19 History levothyroxine [Synthroid] 25 mcg PO DAILY 03/14/19 09/20/19 History melatonin 3 mg PO HS 03/14/19 09/20/19 History thiamine HCl (vitamin B1) 100 mg PO DAILY 03/14/19 09/20/19 History tramadol [Ultram] 50 mg PO Q6 PRN 03/14/19 09/20/19 History risperidone [Risperdal] 0.5 mg PO BID 07/29/19 09/20/19 History Nexium Packet 40 mg PO DAILY 07/31/19 09/20/19 History Perative 1 ea FEEDING TUBE UD 07/31/19 09/20/19 History Stress Formula with Zinc 1 tab PO DAILY 07/31/19 09/20/19 History acetaminophen 650 mg PO Q6H PRN MDD 3gm/24hr 07/31/19 09/20/19 History protein supplement 1 ea PO BID 07/31/19 09/20/19 History docusate sodium 100 mg PO BID 08/29/19 09/20/19 History oxycodone 5 mg PO Q6H PRN 08/29/19 09/20/19 History ferrous sulfate 325 mg PO BID 09/20/19 09/20/19 History metoprolol tartrate 12.5 mg PO BID 09/20/19 09/20/19 History Past Med/Surg History Social History Preferred Language: Mongolian Communication Ability: Impaired Shank Faker Required: No Beliefs That Will Affect Care: None marital status: Single Current Living Situation: Care Home Current Living Situation Comment: [place] Feels Safe at Home: Yes Smoking Status: Unknown if ever smoked Review of Systems Review of Systems: Could not be reliably obtained Physical Exam Physical Exam: GENERAL: uncomfortable, disoriented, no respiratory distress SKIN: Pallor , warm HEENT: Pale palpebral conjunctivae, no ptosis, dry buccal mucosa NECK : Supple, no tenderness CHEST : CTA, no tenderness HEART : Tachycardic , no obvious murmurs ABDOMEN: Some distention, nontender EXTREMITIES : Contracture left lower extremity precluding full examination of left groin. Dressing left lower extremity NEUROLOGIC : Disoriented, incoherent, no other gross focality Results & Data Vital Signs (Past 12 Hours) Vital Signs Temp Pulse Pulse Resp BP BP Pulse Ox 09/20/19 06:07 22 89/71 L 100 09/20/19 04:44 36.9 C 127 H 106 H 22 79/59 L 103/69 100 Laboratory Results Laboratory Results WBC 16.38 K/uL (4.8-10.8) H 09/20/19 04:49 RBC 3.30 M/uL (4.7-6.1) L 09/20/19 04:49 Hgb 8.9 g/dL (14.0-18.0) L 09/20/19 06:28 Hct 27.6 % (42-52) L 09/20/19 06:28 MCV 88.2 fL (80-100) 09/20/19 04:49 MCH 28.5 pg (25-34) 09/20/19 04:49 MCHC 32.3 g/dL (32-36) 09/20/19 04:49 RDW Std Deviation 52.3 fL (36.4-46.3) H 09/20/19 04:49 RDW Coeff of Lucila 16.2 % (11.5-14.5) H 09/20/19 04:49 Plt Count 582 K/uL (130-400) H 09/20/19 04:49 MPV 9.5 fL (7.4-10.4) 09/20/19 04:49 Immature Gran % (Auto) 0.3 % 09/20/19 04:49 Neut % (Auto) 72.4 % 09/20/19 04:49 Lymph % (Auto) 18.2 % 09/20/19 04:49 [place] % (Auto) 7.4 % 09/20/19 04:49 Eos % (Auto) 1.5 % 09/20/19 04:49 Baso % (Auto) 0.2 % 09/20/19 04:49 Immature Gran # (Auto) 0.05 K/uL (0.00-0.02) H 09/20/19 04:49 Neut # (Auto) 11.84 K/uL (1.4-6.5) H 09/20/19 04:49 Lymph # (Auto) 2.98 K/uL (1.2-3.4) 09/20/19 04:49 [place] # (Auto) 1.22 K/uL (0.11-0.59) H 09/20/19 04:49 Eos # (Auto) 0.25 K/uL (0-0.5) 09/20/19 04:49 Baso # (Auto) 0.04 K/uL (0-0.2) 09/20/19 04:49 PT 12.1 Seconds (9.0-12.0) H 09/20/19 04:49 INR 1.2 (0.9-1.1) H 09/20/19 04:49 APTT 26.3 Seconds (21.0-31.0) 09/20/19 04:49 PTT Ratio 1.0 09/20/19 04:49 Sodium 138 mmol/L (136-145) 09/20/19 04:49 Potassium 4.0 mmol/L (3.5-5.1) 09/20/19 04:49 Chloride 105 mmol/L (98-107) 09/20/19 04:49 Carbon Dioxide 23 mmol/L (21-32) 09/20/19 04:49 Anion Gap 10.0 (3-11) 09/20/19 04:49 BUN 40 mg/dl (7-18) H 09/20/19 04:49 Creatinine 1.02 mg/dl (0.6-1.4) 09/20/19 04:49 Est Cr Clr Drug Dosing 54.0 ml/min 09/20/19 04:49 Est GFR ( Amer) 84.1 09/20/19 04:49 Est GFR (Non-Af Amer) 72.6 09/20/19 04:49 BUN/Creatinine Ratio 38.9 (10-20) H 09/20/19 04:49 Glucose 148 mg/dl (70-99) H 09/20/19 04:49 Calcium 8.7 mg/dl (8.5-10.1) 09/20/19 04:49 Magnesium 1.8 mg/dl (1.8-2.4) 09/20/19 04:49 Total Bilirubin 0.2 mg/dl (0.2-1) 09/20/19 04:49 Direct Bilirubin < 0.1 mg/dl (0-0.2) 09/20/19 04:49 AST 11 U/L (15-37) L 09/20/19 04:49 ALT 16 U/L (12-78) 09/20/19 04:49 Alkaline Phosphatase 96 U/L (45-117) 09/20/19 04:49 Troponin I < 0.015 ng/ml (0-0.045) 09/20/19 04:49 Total Protein 7.7 gm/dl (6.4-8.2) 09/20/19 04:49 Albumin 2.2 gm/dl (3.4-5.0) L 09/20/19 04:49 Urine Color Yellow 09/20/19 05:40 Urine Appearance Turbid (Clear) A 09/20/19 05:40 Urine pH 6.5 (4.5-7.5) 09/20/19 05:40 Ur Specific [place] 1.020 (1.000-1.030) 09/20/19 05:40 Urine Protein 2+ (Negative) H 09/20/19 05:40 Urine Glucose (UA) Negative (Negative) 09/20/19 05:40 Urine Ketones Negative (Negative) 09/20/19 05:40 Urine Blood 1+ (Negative) H 09/20/19 05:40 Urine Nitrite Negative (Negative) 09/20/19 05:40 Urine Bilirubin Negative (Negative) 09/20/19 05:40 Urine Urobilinogen Negative (Negative) 09/20/19 05:40 Ur Leukocyte Esterase Negative (Negative) 09/20/19 05:40 Urine RBC 10-30 /hpf (0-4) H 09/20/19 05:40 Urine WBC 10-30 /hpf (0-5) H 09/20/19 05:40 Ur Epithelial Cells 5-10 /lpf (0-5) H 09/20/19 05:40 Urine Bacteria 2+ (Negative) H 09/20/19 05:40 Hyaline Casts 10-30 /lpf (0-5) H 09/20/19 05:40 Urine Mucus Present (None Prsent) A 09/20/19 05:40 Blood Type A Positive 09/20/19 04:49 Antibody Screen NEGATIVE 09/20/19 04:49 Crossmatch See Detail 09/20/19 04:49 Diagnostic Findings Chest x-ray as per my interpretation no infiltrate EKG as per my interpretation : Rate 105, sinus tachycardia, LAD, LAFB, right bundle branch block, low voltage
[2019-09-20] MEDS ORDERED: DAPTOMYCIN CONSULT ACTIVE PRN (06:54)
[2019-09-20] MEDS ORDERED: DAPTOmycin 250 MG in SYRINGE 0 ML IV SCH (07:00)
[2019-09-20] MEDS ORDERED: IOVERSOL 100ml IV PRN (07:17)
[2019-09-20 07:20] LABS: T4 Free Thyroxine 1.28 ng/dl (0.8-1.6)
--- NOTE | 2019-09-20 07:37 | CT Scan Report ---
CT abd pelvis IV con only CLINICAL HISTORY: abd/groin pain COMPARISON STUDY: July 31, 2019 TECHNIQUE: The patient was scanned in a dynamic helical fashion during intravenous administration of 94 cc of Optiray 320. A dose lowering technique was utilized adhering to the principles of ALARA. CT DOSE: 1088.24 mGycm FINDINGS: Lower chest: There is a stable 9 mm solid left lingular pulmonary nodule. Dependent airspace opacitie s are likely atelectatic. Liver: There is mild intrahepatic biliary ductal dilatation. No focal hepatic masses are visualized. Gallbladder: There is gallbladder wall calcification. Spleen: Normal in size and attenuation. Pancreas: Unremarkable. Adrenal glands: There is stable adrenal gland thickening. Kidneys: There is symmetric renal cortical enhancement. The kidneys are normal in size without hydron ephrosis. Bowel: There are no transition zones indicate bowel obstruction. There is fecal retention. The rectum measures 9 cm in diameter. There is no evidence of acute diverticulitis. The appendix is not visuali zed with certainty. There is an indwelling gastrostomy tube. The tip is located at the level of the o ccipital duodenum. Peritoneum: There is no intraperitoneal free air or abdominal ascites. Vasculature: There is no evidence of abdominal aortic aneurysm. There is an indwelling IVC filter. Adenopathy: None. Pelvic viscera: There is a joint Childs catheter. There is mild prostatomegaly. Skeletal structures: There are chronic destructive changes involving the right hip. There is chronic subluxation of the left hip. IMPRESSION: 1. No evidence of bowel obstruction. No evidence of free air 2. Fecal retention with a distended stool-filled rectum measuring 9 cm in diameter 3. Stable 9 mm solid pulmonary nodule within the lingula 4. Basilar atelectasis 5. No evidence of acute appendicitis. No evidence of acute diverticulitis. 6. Chronic deformities of the hips. 7. Gallbladder wall calcification. Mild intrahepatic biliary ductal dilatation, which remains unchang ed. ACT 112: Negative or not required by law. Electronically signed by: Mike Marino M.D. 09/20/2019 7:35 AM
--- NOTE | 2019-09-20 07:41 | XRay Report ---
XR chest 1V portable CLINICAL HISTORY: hemorrhage, hypotensive COMPARISON STUDY: 07/31/2019 FINDINGS: The study is performed in a supine fashion. The cardiac and mediastinal contours are normal . There is no evidence of focal pulmonary consolidation. There is no evidence of failure. No pleural effusions are visualized.[ IMPRESSION: No active disease in the chest. ACT 112: Negative or not required by law. Electronically signed by: Mike Marino M.D. 09/20/2019 7:40 AM
[2019-09-20] MEDS: NORMOSOL-R 1,000 ML IV SCH ×2 (08:30→14:45)
[2019-09-20] MEDS ORDERED: KETOROLAC TROMETHAMINE 15 MG/ML VIAL IV PRN (08:46)
[2019-09-20] MEDS ORDERED: ACETAMINOPHEN 325 MG TAB PO PRN (08:46)
[2019-09-20] MEDS ORDERED: PROMETHAZINE HCL 12.5 MG in SODIUM CHLORIDE 0.9% 50 ML IV PRN (08:46)
[2019-09-20] MEDS ORDERED: OXYCODONE HCL IR 5 MG TAB (IMMEDIATE RELEASE) PO PRN (08:54)
[2019-09-20] MEDS ORDERED: DIVALPROEX SODIUM SPRINKLE 125 MG CAP PO SCH (09:00)
[2019-09-20] MEDS ORDERED: DOCUSATE SODIUM 100 MG CAP PO SCH (09:00)
[2019-09-20] MEDS ORDERED: risperiDONE 0.5 MG TABLET PO SCH (09:00)
[2019-09-20] MEDS ORDERED: LEVOTHYROXINE SODIUM 25 MCG TABLET PO SCH (09:00)
[2019-09-20] MEDS ORDERED: FOLIC ACID 1 MG TAB PO SCH (09:00)
[2019-09-20] MEDS ORDERED: FERROUS SULFATE 325 MG TAB PO SCH (09:00)
[2019-09-20] MEDS ORDERED: THIAMINE HCL 100 MG TAB PO SCH (09:00)
--- NOTE | 2019-09-20 09:20 | Pharmacy Report ---
Pharmacy Abx Dose Progress Nt - Date of Service September 20, 2019 - Pharmacy Dosing Scope The patient is currently receiving the following antimicrobial agents per Pharmacy consult: Daptomycin + Tobramycin - Objective Vital Signs (Past 12hrs): Vital Signs Temp Pulse Pulse Resp BP BP Pulse Ox 09/20/19 07:53 105 H 14 110/54 L 98 09/20/19 07:16 100 H 14 102/52 L 99 09/20/19 06:07 22 89/71 L 100 09/20/19 04:44 36.9 C 127 H 106 H 22 79/59 L 103/69 100 Lab Results (24hrs): Laboratory Tests (24 Hours) 09/20/19 09/20/19 04:49 04:49 WBC 16.38 H Neut # (Auto) 11.84 H Creatinine 1.02 Est Cr Clr Drug Dosing 54.0 Micro Results: Microbiology Previous admission: 07/31/19 11:30 Hip,Right Decubitus Gram Stain - Final 07/31/19 11:30 Hip,Right Decubitus Deep Wound Culture - Final Morganella morganii 07/31/19 11:30 Hip,Left Decubitus Gram Stain - Final 07/31/19 11:30 Hip,Left Decubitus Deep Wound Culture - Final Pseudomonas aeruginosa 07/31/19 11:30 Groin Gram Stain - Final 07/31/19 11:30 Groin Deep Wound Culture - Final Escherichia coli Morganella morganii 07/31/19 03:15 Urine,Clean Catch Urine Culture - Final Enterococcus faecalis 07/13/19 03:40 Abdomen Gram Stain - Final 07/13/19 03:40 Abdomen Deep Wound Culture - Final Staph aureus MRSA - Risk Factors for Resistance * Resident in a [place] [facility] care facility or extended-care facility * Hospitalization for 48 hours or more within the past 90 days * History of infection with a multidrug-resistant organism: See micro data above * Antimicrobial use within the last 90 days - Assessment & Plan Assessment 74 year old M receiving dapto + tobramycin for treatment of infected L hib decub Day # 1 of antimicrobial therapy today with dapto + tobramycin Recently was on 4 weeks of IV Zerbaxa for infected L hib decub with E Coli, Morganella, Pseudomonas (Mar 2019 & Aug 2018) Plan Daptomycin IV * 4mg/kg * ideal body weight per protocol. * CrCl > 30 ml/min --> continue with Q24 hr dosing Tobramycin * Patient meets criteria for extended-interval aminoglycoside dosing per the Castro nomogram * Initiate 440 mg (7 mg/kg) x 1 dose and then check a random level per nomogram to determine dosing interval. Assuming Q24hrs based on CrCl but will confirm with levels and adjust if needed. Pharmacy will continue to follow and will adjust dose/frequency as necessary. Thank you.
[2019-09-20] MEDS ORDERED: POLYETHYLENE (MIRALAX) 17 GM PACK PO SCH (11:45)
[2019-09-20 11:57] LABS: Hematocrit (blood only) 23.7 % (42-52); Hemoglobin 7.8 g/dL (14.0-18.0)
[2019-09-20] MEDS ORDERED: ACETAMINOPHEN SOL 650 MG/20.3 ML UDC PO PRN (12:06)
[2019-09-20] MEDS ORDERED: RAPID SEQUENCE INDUCTION BAG ONE (16:42)
[2019-09-20] MEDS ORDERED: PROTHROMBIN COMP CONC- KCENTRA 2,000 UNITS in SYRINGE 0 ML IV SCH (16:45)
--- NOTE | 2019-09-20 17:09 | Anesthesiology Consultation ---
Date of Service September 20, 2019 Assessment & Plan Chart Review Chart Review: Patient NOT seen in Pre Admission Testing Consults Requested none ASA [id number] Proposed Anesthesia Anesthesia Type: General History Height/Weight Height: 5 ft 4 in Weight: 62.5 kg Allergies Allergy/AdvReac Type Severity Reaction Status Date / Time iodine Allergy Unknown Unknown Verified 09/20/19 05:00 onion AdvReac Intermediate vomitting Verified 09/20/19 05:00 Medications Home Medications Medication Instructions Recorded Confirmed Last Taken Eliquis 5 mg PO BID 03/14/19 09/20/19 08/29/19 5 mg acetaminophen [Tylenol] 650 mg PO Q4 PRN MDD 3gm/24hr 03/14/19 09/20/19 Unknown baclofen 5 mg PO TID 03/14/19 09/20/19 08/29/19 10 mg divalproex 500 mg PO BID 03/14/19 09/20/19 08/29/19 500 mg fentanyl [Duragesic] 1 patch TOPICAL [id number] 03/14/19 09/20/19 08/29/19 01:00 folic acid 1 mg PO DAILY 03/14/19 09/20/19 08/29/19 levothyroxine [Synthroid] 25 mcg PO DAILY 03/14/19 09/20/19 08/29/19 melatonin 3 mg PO HS 03/14/19 09/20/19 08/28/19 thiamine HCl (vitamin B1) 100 mg PO DAILY 03/14/19 09/20/19 08/29/19 tramadol [Ultram] 50 mg PO Q6 PRN 03/14/19 09/20/19 07/29/19 risperidone [Risperdal] 0.5 mg PO BID 07/29/19 09/20/19 08/29/19 0.5mg Nexium Packet 40 mg PO DAILY 07/31/19 09/20/19 08/28/19 Perative 1 ea FEEDING TUBE UD 07/31/19 09/20/19 07/30/19 06:00 Stress Formula with Zinc 1 tab PO DAILY 07/31/19 09/20/19 08/29/19 acetaminophen 650 mg PO Q6H PRN MDD 3gm/24hr 07/31/19 09/20/19 Unknown protein supplement 1 ea PO BID 07/31/19 09/20/19 08/29/19 docusate sodium 100 mg PO BID 08/29/19 09/20/19 08/29/19 oxycodone 5 mg PO Q6H PRN 08/29/19 09/20/19 08/28/19 ferrous sulfate 325 mg PO BID 09/20/19 09/20/19 Unknown metoprolol tartrate 12.5 mg PO BID 09/20/19 09/20/19 Unknown Active Medications Generic Name Dose Route Start Last Admin Trade Name Darshan PRN Reason Stop Dose Admin Divalproex Sodium 500 mg 09/20/19 09:00 09/20/19 09:19 Depakote Sprinkle PO 10/20/19 08:59 500 mg BID DIOR Administration Folic Acid 1 mg 09/20/19 09:00 09/20/19 09:20 Folvite PO 10/20/19 08:59 1 mg DAILY DIOR Administration Tobramycin Sulfate 440 mg/ 111 mls @ 100 mls/hr 09/20/19 06:45 09/20/19 08:30 Dextrose IV 09/27/19 06:44 Infused Q24H DIOR Infusion Daptomycin 250 mg/ Syringe 5 mls @ 2.5 mls/min 09/20/19 07:00 09/20/19 07:10 IV 09/27/19 06:59 2.5 mls/min Q24H DIOR Administration Protocol Levothyroxine Sodium 25 mcg 09/20/19 09:00 09/20/19 09:20 Synthroid PO 10/20/19 08:59 25 mcg DAILYBB DIOR Administration Polyethylene Glycol 17 gm 09/20/19 11:45 09/20/19 12:29 Miralax Powder Packet PO 10/20/19 11:44 17 gm DAILY DIOR Administration Thiamine HCl 100 mg 09/20/19 09:00 09/20/19 09:20 Vitamin B-1 PO 10/20/19 08:59 100 mg DAILY DIOR Administration Past Medical History Medical History Anemia (Chronic) Anxiety (Chronic) Bacteremia Chronic pain (Chronic) Chronic systolic CHF (congestive heart failure) (Chronic) Coronary artery disease (Chronic) s/p [place] 2007 Decubitus ulcer (Chronic) multiple, chronic Depression Dyslipidemia (Chronic) Esophagitis Childs catheter in place GERD (gastroesophageal reflux disease) (Chronic) History of Clostridium difficile colitis (Chronic) History of DVT (deep vein thrombosis) (Chronic) LLE 2017 History of electroconvulsive therapy (Chronic) History of ESBL E. 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 Childs cath. Wound infection (Acute) Pseudomonas PEG site October 2018 Exercise / Class Metabolic Activity IV < 2 Limit ADL/Bedbound Past Family History Family History Other Family history non-contributory Past Surgical History Surgical History History of appendectomy (Chronic) S/P PICC central line placement Status post insertion of percutaneous endoscopic gastrostomy (PEG) tube (Chronic) Sep 2018 Past Anesthesia History No Hx of Anesthesia Complications and No Family Hx of Anesthesia Complications History of PONV No Hx of PONV and No Hx of Motion Sickness Social History Smoking Status: Unknown if ever smoked Hx Alcohol Use: No Hx Substance Use: No substance use type: does not use Last Used Substance: Unknown Physical Exam Vital Signs Last Vital Signs Temp 37.4 C 09/20/19 16:35 Pulse 136 H 09/20/19 16:35 Resp 22 09/20/19 16:35 BP 118/76 09/20/19 16:35 Pulse Ox 99 09/20/19 16:35 Testing Laboratory Results 09/20/19 11:50 09/20/19 04:49 PT 12.1 Seconds (9.0-12.0) H 09/20/19 04:49 INR 1.2 (0.9-1.1) H 09/20/19 04:49 APTT 26.3 Seconds (21.0-31.0) 09/20/19 04:49 Urine Color Yellow 09/20/19 05:40 Urine Appearance Turbid (Clear) A 09/20/19 05:40 Urine pH 6.5 (4.5-7.5) 09/20/19 05:40 Ur Specific [place] 1.020 (1.000-1.030) 09/20/19 05:40 Urine Protein 2+ (Negative) H 09/20/19 05:40 Urine Glucose (UA) Negative (Negative) 09/20/19 05:40 Urine Ketones Negative (Negative) 09/20/19 05:40 Urine Nitrite Negative (Negative) 09/20/19 05:40 Ur Leukocyte Esterase Negative (Negative) 09/20/19 05:40 Urine RBC 10-30 /hpf (0-4) H 09/20/19 05:40 Urine WBC 10-30 /hpf (0-5) H 09/20/19 05:40 Ur Epithelial Cells 5-10 /lpf (0-5) H 09/20/19 05:40 Blood Type A Positive 09/20/19 04:49 Antibody Screen NEGATIVE 09/20/19 04:49 Electrocardiogram Date: 09/20/19 Findings: + ST @ (w/pac's at 107;IRBBB;low voltage QRS;LAD) Chest X-Ray Date: 09/20/19 Findings: + NAD Echocardiogram Date: 07/31/19 EF: 45 LV Function: normal Other Findings: + diastolic dysfunction (grade 1)
[2019-09-20] MEDS ORDERED: fentaNYL citrate 100 MCG/2 ML VIAL ONE (17:27)
[2019-09-20] MEDS ORDERED: MIDAZOLAM HCL 125 MG/250 ML BAG IV SCH (17:33)
[2019-09-20] MEDS ORDERED: fentaNYL citrate 100 MCG/2 ML VIAL IV PRN (17:33)
[2019-09-20] MEDS ORDERED: fentaNYL DRIP 1,250 MCG/250 ML BAG IV SCH (17:33)
--- NOTE | 2019-09-20 17:42 | Procedure Note ---
Procedure Note Date of Service September 20, 2019 Procedure 1: Procedure date: Noted above Procedure: Central venous access Pre-procedure indication: Hemorrhage from left femoral artery Post-procedure Diagnosis: same as above Prior to Procedure: Informed Consent: The risks, benefits, indications, potential complications, and alternatives were not explained to the patient and informed consent obtained. Informed consent implied Attending Staff: Vicky Huynh DO Resident/APC: Not applicable Skin Prep: Chlorhexidine Anesthesia: Versed and fentanyl The identity of the patient was confirmed and a bedside time out was performed. Description of Procedure: The patient's right subclavian area was prepped with chlorhexidine. With sterile gloves hat mask the right subclavian vein was attempted to be cannulated x4 needle passes, no blood return was visualized and the procedure was aborted Complications: None Estimated blood loss: Trace Patient tolerated the procedure well. Procedure two: Procedure date: Noted above Procedure: Central venous access Pre-procedure indication: Hemorrhage from left femoral artery Post-procedure Diagnosis: same as above Prior to Procedure: Informed Consent: The risks, benefits, indications, potential complications, and alternatives were not explained to the patient and informed consent obtained. Emergent consent implied Attending Staff: Vicky Huynh DO Resident/APC: Not applicable Skin Prep: Chlorhexidine Anesthesia: Versed and fentanyl The identity of the patient was confirmed and a bedside time out was performed. Description of Procedure: The left subclavian area was prepped with chlorhexidine. With sterile gloves, hat, mask the left subclavian artery was cannulated on the second needle pass dark venous blood was noted to return. A guidewire was inserted through the cannula and the needle was subsequently removed. A skin wendi was made and a 20 cm catheter was inserted. This was tacked with silk suture. After damage control surgery was performed, additional chlorhexidine was used to clean the area at the insertion site and the Biopatch was added and the area was covered and secured. Complications: None Estimated blood loss: Trace Patient tolerated the procedure well. Postprocedural chest x-ray was reviewed, there was no evidence of pneumothoraces on the left nor on the right. The catheter appeared to be in reasonable position. Coding CPT Codes Tubes, Drains, and Vasc Access - Tubes, Drains, and Vasc Access: [id number] Insertion Of Non-tunneled Catheter Age 6 Yrs> ([id number]) Tubes, Drains, and Vasc Access - Tubes, Drains, and Vasc Access: [id number] Insertion Of Non-tunneled Catheter Age 6 Yrs> ([id number]) [facility] [place] Procedure Codes (Charges) Tubes, Drains, and Vasc Access Procedure 1: Tubes, Drains, and Vasc Access: [id number] Insertion Of Non-tunneled Catheter Age 6 Yrs> (Right sided procedure, aborted procedure) Procedure 2: Tubes, Drains, and Vasc Access: [id number] Insertion Of Non-tunneled Catheter Age 6 Yrs> (Left sided procedure)
--- NOTE | 2019-09-20 17:42 | Critical Care Consultation ---
Date of Consultation September 20, 2019 Assessment & Plan (1) Hemorrhage from wound: After notification of the acute active hemorrhage I was informed that the general surgeon was currently in the operating room and will be up as soon as he is able to leave the operating room. Upon my arrival in the patient's room the first issue after receiving report from the bedside clinician was administration of Kcentra that had been ordered prior to my arrival. They Kcentra was administered for Eliquis use and active severe hemorrhage. As those roles were signed the next concern transitioned to obtaining vascular access and endotracheal intubation. The patient appeared to be anxious and agitated and attempting to remove the supplemental oxygen. The patient was intubated with 30 mg of etomidate 50 mg of succinylcholine after it was reported to me that his potassium was normal. Anesthesia was able to perform the endotracheal intubation with a 7.5 tube. Immediately after the airway was secured respiratory therapy bagged the patient through the following course. Next I turned to advanced vascular access. A large bore introducer was unable to be located and I proceeded with placement of a triple-lumen central venous catheter. This was difficult secondary to the patient's body habitus and significant contractures. Given the emergent nature total gown and drape was not able to be employed. After I secured a left subclavian triple-lumen catheter we immediately proceeded with administration of blood products. At this point it is estimated he had 2-3 units in the bed and on the floor, I ordered 4 units of packed red blood cells and 4 units of FFP to be administered. Once vascular access was secured I turned my attention to the groin hemorrhage. The wound was difficult to visualize secondary to significant contracture. There was obvious spurting arterial hemorrhage and direct deep pressure was applied to the iliacs via fist to the groin. This was the only way to achieve hemorrhage control. Removing the soaked gauze pads I was able to visualize what appeared to be a perforating vessel from the femoral artery (this was either the common or the profunda however I am not completely sure. Utilizing clamps from a general surgery tray I attempted to clamp the perforating vessel. I was not successful via multiple attempts. Eventually staff was able to locate combat gauze for which I was going to pack the wound and apply pressure to the iliac artery for hemorrhage control. Immediately after packing the surgeon arrived at the bedside. Utilizing multiple staff and less than ideal conditions we were able to apply pressure and the surgeon was able to locate the area of the vessel which was hemorrhaging he was able to apply a clamp to the area and then secured it with 3-0 silk suture. After I slowly released pressure there was no area of active hemorrhage and very minimal oozing from surrounding tissue. We covered the area with iodoform soaked gauze covered with ABD pads applied a Tegaderm over the entire area. Additional staff contacted [facility] vascular surgery service as we do not have a vascular surgeon adjudication specialist at this time. At this time we contacted the blood bank to discontinue the massive transfusion to stop additional blood product as the hemorrhage appeared to be controlled. Patient was attached to a ventilator and sedation and analgesia were started in the form of a Versed infusion and a fentanyl infusion. Of note the patient was given 10 mg vecuronium for the bedside damage control surgery. The patient is already on daptomycin and tobramycin for anti-infectives. We have ordered repeat baseline labs. At this time he has received 4 units of packed red blood cells, 2 units of FFP (the additional 2 from the 4 and the initial order was returned to blood bank), Kcentra. He is intubated with a left subclavian central venous catheter. His hemodynamics appear reassuring. He is pending transfer to [facility] via helicopter EMS. I attempted to contact the patient's contacts, the initial phone number: [phone] stated his voicemail has not been set up yet. I was able to contact the patient's brother Dk at [phone] and updated the family regarding the patient's condition and plan to transfer for further evaluation by vascular surgery at [facility]. Present on Admission?: No (2) Blood transfusion during current hospitalisation: Present on Admission?: No (3) Anemia due to blood loss: History of Present Illness Reason for Consultation: Hemorrhage from left femoral artery Requesting Physician: Shyann Lazar Attending Physician: [place] Lazar MD History of Present Illness History is limited to that from medical records and limited by acuity of clinical condition. I was contacted that the patient was hemorrhaging from a left groin wound and the patient has chronic contractures. He has reported to be on tobramycin as well as daptomycin. Upon my arrival at bedside several nurses were holding pressure to the left groin and obvious evidence of massive hemorrhage was noted. It was also reported that the patient was on Eliquis and was in the process of receiving Kcentra given the clinical situation. Bedside clinicians reported that the patient was full code. Allergies Allergy/AdvReac Type Severity Reaction Status Date / Time iodine Allergy Unknown Unknown Verified 09/20/19 05:00 onion AdvReac Intermediate vomitting Verified 09/20/19 05:00 Home Medications Home Medications Medication Instructions Recorded Confirmed Type Eliquis 5 mg PO BID 03/14/19 09/20/19 History acetaminophen [Tylenol] 650 mg PO Q4 PRN MDD 3gm/24hr 03/14/19 09/20/19 History baclofen 5 mg PO TID 03/14/19 09/20/19 History divalproex 500 mg PO BID 03/14/19 09/20/19 History fentanyl [Duragesic] 1 patch TOPICAL [id number] 03/14/19 09/20/19 History folic acid 1 mg PO DAILY 03/14/19 09/20/19 History levothyroxine [Synthroid] 25 mcg PO DAILY 03/14/19 09/20/19 History melatonin 3 mg PO HS 03/14/19 09/20/19 History thiamine HCl (vitamin B1) 100 mg PO DAILY 03/14/19 09/20/19 History tramadol [Ultram] 50 mg PO Q6 PRN 03/14/19 09/20/19 History risperidone [Risperdal] 0.5 mg PO BID 07/29/19 09/20/19 History Nexium Packet 40 mg PO DAILY 07/31/19 09/20/19 History Perative 1 ea FEEDING TUBE UD 07/31/19 09/20/19 History Stress Formula with Zinc 1 tab PO DAILY 07/31/19 09/20/19 History acetaminophen 650 mg PO Q6H PRN MDD 3gm/24hr 07/31/19 09/20/19 History protein supplement 1 ea PO BID 07/31/19 09/20/19 History docusate sodium 100 mg PO BID 08/29/19 09/20/19 History oxycodone 5 mg PO Q6H PRN 08/29/19 09/20/19 History ferrous sulfate 325 mg PO BID 09/20/19 09/20/19 History metoprolol tartrate 12.5 mg PO BID 09/20/19 09/20/19 History Patient History Medical History Anemia (Chronic) Anxiety (Chronic) Bacteremia Chronic pain (Chronic) Chronic systolic CHF (congestive heart failure) (Chronic) Coronary artery disease (Chronic) s/p TX 2007 Decubitus ulcer (Chronic) multiple, chronic Depression Dyslipidemia (Chronic) Esophagitis Childs catheter in place GERD (gastroesophageal reflux disease) (Chronic) History of Clostridium difficile colitis (Chronic) History of DVT (deep vein thrombosis) (Chronic) LLE 2017 History of electroconvulsive therapy (Chronic) History of ESBL E. 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 Childs cath. Wound infection (Acute) Pseudomonas PEG site October 2018 Surgical History History of appendectomy (Chronic) S/P PICC central line placement Status post insertion of percutaneous endoscopic gastrostomy (PEG) tube (Chronic) Sep 2018 Family History Other Family history non-contributory Social History Preferred Language: German Communication Ability: Effective Neurological Surgeon Required: No Beliefs That Will Affect Care: None marital status: Single Current Living Situation: Custodial Current Living Situation Comment: [facility] Other Information That Helps Us Care for You: No Feels Safe at Home: Yes Smoking Status: Unknown if ever smoked Hx Alcohol Use: No Hx Substance Use: No Physical Exam Physical Exam: General: Alert. nontoxic. Skin: Warm, dry, Head: Atraumatic Ears, nose, mouth and throat: airway patent Cardiovascular: Normal peripheral perfusion Respiratory: no respiratory distress Gastrointestinal: Non distended Musculoskeletal: Significant contractures, significant inguinal wound to the left groin with exposed vessel. The distal left extremity is wrapped with gauze, the foot is warm and capillary refill is approximately that of the right lower extremity, it does not frankly appear dusky nor ischemic at this time (1829) Results & Data ([facility]) Vital Signs (Past 12 Hours) Vital Signs Temp Pulse Pulse Resp BP BP BP 09/20/19 16:35 37.4 C 136 H 22 118/76 09/20/19 16:30 37.4 C 106 H 99/51 L 09/20/19 15:47 37.4 C 106 H 22 99/51 L 09/20/19 12:00 37.2 C 103 H 18 107/63 09/20/19 08:46 111 H 09/20/19 08:38 36.5 C 108 H 113/71 09/20/19 07:53 105 H 14 110/54 L 09/20/19 07:16 100 H 14 102/52 L 09/20/19 06:07 22 89/71 L Pulse Ox 09/20/19 16:35 99 09/20/19 16:30 09/20/19 15:47 99 09/20/19 12:00 96 09/20/19 08:46 09/20/19 08:38 99 09/20/19 07:53 98 09/20/19 07:16 99 09/20/19 06:07 100 Laboratory Results 09/20/19 09/20/19 09/20/19 Range/Units 11:50 11:50 08:48 WBC (4.8-10.8) K/uL RBC (4.7-6.1) M/uL Hgb 7.8 L (14.0-18.0) g/dL Hct 23.7 L (42-52) % MCV (80-100) fL MCH (25-34) pg MCHC (32-36) g/dL RDW Std Deviation (36.4-46.3) fL RDW Coeff of Lucila (11.5-14.5) % Plt Count (130-400) K/uL MPV (7.4-10.4) fL Immature Gran % (Auto) % Neut % (Auto) % Lymph % (Auto) % Stafford % (Auto) % Eos % (Auto) % Baso % (Auto) % Immature Gran # (Auto) (0.00-0.02) K/uL Neut # (Auto) (1.4-6.5) K/uL Lymph # (Auto) (1.2-3.4) K/uL Stafford # (Auto) (0.11-0.59) K/uL Eos # (Auto) (0-0.5) K/uL Baso # (Auto) (0-0.2) K/uL PT (9.0-12.0) Seconds INR (0.9-1.1) APTT (21.0-31.0) Seconds PTT Ratio Sodium (136-145) mmol/L Potassium (3.5-5.1) mmol/L Chloride (98-107) mmol/L Carbon Dioxide (21-32) mmol/L Anion Gap (3-11) BUN (7-18) mg/dl Creatinine (0.6-1.4) mg/dl Est Cr Clr Drug Dosing ml/min Est GFR ( Amer) Est GFR (Non-Af Amer) BUN/Creatinine Ratio (10-20) Glucose (70-99) mg/dl Lactate 1.2 2.0 (0.4-2.0) mmol/L Calcium (8.5-10.1) mg/dl Magnesium (1.8-2.4) mg/dl Total Bilirubin (0.2-1) mg/dl Direct Bilirubin (0-0.2) mg/dl AST (15-37) U/L ALT (12-78) U/L Alkaline Phosphatase (45-117) U/L Troponin I (0-0.045) ng/ml Total Protein (6.4-8.2) gm/dl Albumin (3.4-5.0) gm/dl TSH (0.300-4.500) uIu/ml Free T4 (0.8-1.6) ng/dl Urine Color Urine Appearance (Clear) Urine pH (4.5-7.5) Ur Specific Webster (1.000-1.030) Urine Protein (Negative) Urine Glucose (UA) (Negative) Urine Ketones (Negative) Urine Blood (Negative) Urine Nitrite (Negative) Urine Bilirubin (Negative) Urine Urobilinogen (Negative) Ur Leukocyte Esterase (Negative) Urine RBC (0-4) /hpf Urine WBC (0-5) /hpf Ur Epithelial Cells (0-5) /lpf Urine Bacteria (Negative) Hyaline Casts (0-5) /lpf Urine Mucus (None Prsent) Nasal Screen MRSA (PCR) (Negative) Valproic Acid (50-100) mcg/ml Blood Type Antibody Screen Crossmatch 09/20/19 09/20/19 09/20/19 Range/Units 08:40 06:28 06:28 WBC (4.8-10.8) K/uL RBC (4.7-6.1) M/uL Hgb (14.0-18.0) g/dL Hct (42-52) % MCV (80-100) fL MCH (25-34) pg MCHC (32-36) g/dL RDW Std Deviation (36.4-46.3) fL RDW Coeff of Lucila (11.5-14.5) % Plt Count (130-400) K/uL MPV (7.4-10.4) fL Immature Gran % (Auto) % Neut % (Auto) % Lymph % (Auto) % Stafford % (Auto) % Eos % (Auto) % Baso % (Auto) % Immature Gran # (Auto) (0.00-0.02) K/uL Neut # (Auto) (1.4-6.5) K/uL Lymph # (Auto) (1.2-3.4) K/uL Stafford # (Auto) (0.11-0.59) K/uL Eos # (Auto) (0-0.5) K/uL Baso # (Auto) (0-0.2) K/uL PT (9.0-12.0) Seconds INR (0.9-1.1) APTT (21.0-31.0) Seconds PTT Ratio Sodium (136-145) mmol/L Potassium (3.5-5.1) mmol/L Chloride (98-107) mmol/L Carbon Dioxide (21-32) mmol/L Anion Gap (3-11) BUN (7-18) mg/dl Creatinine (0.6-1.4) mg/dl Est Cr Clr Drug Dosing ml/min Est GFR ( Amer) Est GFR (Non-Af Amer) BUN/Creatinine Ratio (10-20) Glucose (70-99) mg/dl Lactate (0.4-2.0) mmol/L Calcium (8.5-10.1) mg/dl Magnesium (1.8-2.4) mg/dl Total Bilirubin (0.2-1) mg/dl Direct Bilirubin (0-0.2) mg/dl AST (15-37) U/L ALT (12-78) U/L Alkaline Phosphatase (45-117) U/L Troponin I (0-0.045) ng/ml Total Protein (6.4-8.2) gm/dl Albumin (3.4-5.0) gm/dl TSH 7.000 H (0.300-4.500) uIu/ml Free T4 1.28 (0.8-1.6) ng/dl Urine Color Urine Appearance (Clear) Urine pH (4.5-7.5) Ur Specific Webster (1.000-1.030) Urine Protein (Negative) Urine Glucose (UA) (Negative) Urine Ketones (Negative) Urine Blood (Negative) Urine Nitrite (Negative) Urine Bilirubin (Negative) Urine Urobilinogen (Negative) Ur Leukocyte Esterase (Negative) Urine RBC (0-4) /hpf Urine WBC (0-5) /hpf Ur Epithelial Cells (0-5) /lpf Urine Bacteria (Negative) Hyaline Casts (0-5) /lpf Urine Mucus (None Prsent) Nasal Screen MRSA (PCR) Positive A (Negative) Valproic Acid 18 L (50-100) mcg/ml Blood Type Antibody Screen Crossmatch 09/20/19 09/20/19 09/20/19 Range/Units 06:28 06:28 05:40 WBC (4.8-10.8) K/uL RBC (4.7-6.1) M/uL Hgb 8.9 L (14.0-18.0) g/dL Hct 27.6 L (42-52) % MCV (80-100) fL MCH (25-34) pg MCHC (32-36) g/dL RDW Std Deviation (36.4-46.3) fL RDW Coeff of Lucila (11.5-14.5) % Plt Count (130-400) K/uL MPV (7.4-10.4) fL Immature Gran % (Auto) % Neut % (Auto) % Lymph % (Auto) % Stafford % (Auto) % Eos % (Auto) % Baso % (Auto) % Immature Gran # (Auto) (0.00-0.02) K/uL Neut # (Auto) (1.4-6.5) K/uL Lymph # (Auto) (1.2-3.4) K/uL Stafford # (Auto) (0.11-0.59) K/uL Eos # (Auto) (0-0.5) K/uL Baso # (Auto) (0-0.2) K/uL PT (9.0-12.0) Seconds INR (0.9-1.1) APTT (21.0-31.0) Seconds PTT Ratio Sodium (136-145) mmol/L Potassium (3.5-5.1) mmol/L Chloride (98-107) mmol/L Carbon Dioxide (21-32) mmol/L Anion Gap (3-11) BUN (7-18) mg/dl Creatinine (0.6-1.4) mg/dl Est Cr Clr Drug Dosing ml/min Est GFR ( Amer) Est GFR (Non-Af Amer) BUN/Creatinine Ratio (10-20) Glucose (70-99) mg/dl Lactate 2.6 H* (0.4-2.0) mmol/L Calcium (8.5-10.1) mg/dl Magnesium (1.8-2.4) mg/dl Total Bilirubin (0.2-1) mg/dl Direct Bilirubin (0-0.2) mg/dl AST (15-37) U/L ALT (12-78) U/L Alkaline Phosphatase (45-117) U/L Troponin I (0-0.045) ng/ml Total Protein (6.4-8.2) gm/dl Albumin (3.4-5.0) gm/dl TSH (0.300-4.500) uIu/ml Free T4 (0.8-1.6) ng/dl Urine Color Yellow Urine Appearance Turbid A (Clear) Urine pH 6.5 (4.5-7.5) Ur Specific Webster 1.020 (1.000-1.030) Urine Protein 2+ H (Negative) Urine Glucose (UA) Negative (Negative) Urine Ketones Negative (Negative) Urine Blood 1+ H (Negative) Urine Nitrite Negative (Negative) Urine Bilirubin Negative (Negative) Urine Urobilinogen Negative (Negative) Ur Leukocyte Esterase Negative (Negative) Urine RBC 10-30 H (0-4) /hpf Urine WBC 10-30 H (0-5) /hpf Ur Epithelial Cells 5-10 H (0-5) /lpf Urine Bacteria 2+ H (Negative) Hyaline Casts 10-30 H (0-5) /lpf Urine Mucus Present A (None Prsent) Nasal Screen MRSA (PCR) (Negative) Valproic Acid (50-100) mcg/ml Blood Type Antibody Screen Crossmatch 09/20/19 09/20/19 09/20/19 Range/Units 04:49 04:49 04:49 WBC 16.38 H (4.8-10.8) K/uL RBC 3.30 L (4.7-6.1) M/uL Hgb 9.4 L (14.0-18.0) g/dL Hct 29.1 L (42-52) % MCV 88.2 (80-100) fL MCH 28.5 (25-34) pg MCHC 32.3 (32-36) g/dL RDW Std Deviation 52.3 H (36.4-46.3) fL RDW Coeff of Lucila 16.2 H (11.5-14.5) % Plt Count 582 H (130-400) K/uL MPV 9.5 (7.4-10.4) fL Immature Gran % (Auto) 0.3 % Neut % (Auto) 72.4 % Lymph % (Auto) 18.2 % Stafford % (Auto) 7.4 % Eos % (Auto) 1.5 % Baso % (Auto) 0.2 % Immature Gran # (Auto) 0.05 H (0.00-0.02) K/uL Neut # (Auto) 11.84 H (1.4-6.5) K/uL Lymph # (Auto) 2.98 (1.2-3.4) K/uL Stafford # (Auto) 1.22 H (0.11-0.59) K/uL Eos # (Auto) 0.25 (0-0.5) K/uL Baso # (Auto) 0.04 (0-0.2) K/uL PT 12.1 H (9.0-12.0) Seconds INR 1.2 H (0.9-1.1) APTT 26.3 (21.0-31.0) Seconds PTT Ratio 1.0 Sodium 138 (136-145) mmol/L Potassium 4.0 (3.5-5.1) mmol/L Chloride 105 (98-107) mmol/L Carbon Dioxide 23 (21-32) mmol/L Anion Gap 10.0 (3-11) BUN 40 H (7-18) mg/dl Creatinine 1.02 (0.6-1.4) mg/dl Est Cr Clr Drug Dosing 54.0 ml/min Est GFR ( Amer) 84.1 Est GFR (Non-Af Amer) 72.6 BUN/Creatinine Ratio 38.9 H (10-20) Glucose 148 H (70-99) mg/dl Lactate (0.4-2.0) mmol/L Calcium 8.7 (8.5-10.1) mg/dl Magnesium 1.8 (1.8-2.4) mg/dl Total Bilirubin 0.2 (0.2-1) mg/dl Direct Bilirubin < 0.1 (0-0.2) mg/dl AST 11 L (15-37) U/L ALT 16 (12-78) U/L Alkaline Phosphatase 96 (45-117) U/L Troponin I < 0.015 (0-0.045) ng/ml Total Protein 7.7 (6.4-8.2) gm/dl Albumin 2.2 L (3.4-5.0) gm/dl TSH (0.300-4.500) uIu/ml Free T4 (0.8-1.6) ng/dl Urine Color Urine Appearance (Clear) Urine pH (4.5-7.5) Ur Specific Webster (1.000-1.030) Urine Protein (Negative) Urine Glucose (UA) (Negative) Urine Ketones (Negative) Urine Blood (Negative) Urine Nitrite (Negative) Urine Bilirubin (Negative) Urine Urobilinogen (Negative) Ur Leukocyte Esterase (Negative) Urine RBC (0-4) /hpf Urine WBC (0-5) /hpf Ur Epithelial Cells (0-5) /lpf Urine Bacteria (Negative) Hyaline Casts (0-5) /lpf Urine Mucus (None Prsent) Nasal Screen MRSA (PCR) (Negative) Valproic Acid (50-100) mcg/ml Blood Type Antibody Screen Crossmatch 09/20/19 Range/Units 04:49 WBC (4.8-10.8) K/uL RBC (4.7-6.1) M/uL Hgb (14.0-18.0) g/dL Hct (42-52) % MCV (80-100) fL MCH (25-34) pg MCHC (32-36) g/dL RDW Std Deviation (36.4-46.3) fL RDW Coeff of Lucila (11.5-14.5) % Plt Count (130-400) K/uL MPV (7.4-10.4) fL Immature Gran % (Auto) % Neut % (Auto) % Lymph % (Auto) % Stafford % (Auto) % Eos % (Auto) % Baso % (Auto) % Immature Gran # (Auto) (0.00-0.02) K/uL Neut # (Auto) (1.4-6.5) K/uL Lymph # (Auto) (1.2-3.4) K/uL Stafford # (Auto) (0.11-0.59) K/uL Eos # (Auto) (0-0.5) K/uL Baso # (Auto) (0-0.2) K/uL PT (9.0-12.0) Seconds INR (0.9-1.1) APTT (21.0-31.0) Seconds PTT Ratio Sodium (136-145) mmol/L Potassium (3.5-5.1) mmol/L Chloride (98-107) mmol/L Carbon Dioxide (21-32) mmol/L Anion Gap (3-11) BUN (7-18) mg/dl Creatinine (0.6-1.4) mg/dl Est Cr Clr Drug Dosing ml/min Est GFR ( Amer) Est GFR (Non-Af Amer) BUN/Creatinine Ratio (10-20) Glucose (70-99) mg/dl Lactate (0.4-2.0) mmol/L Calcium (8.5-10.1) mg/dl Magnesium (1.8-2.4) mg/dl Total Bilirubin (0.2-1) mg/dl Direct Bilirubin (0-0.2) mg/dl AST (15-37) U/L ALT (12-78) U/L Alkaline Phosphatase (45-117) U/L Troponin I (0-0.045) ng/ml Total Protein (6.4-8.2) gm/dl Albumin (3.4-5.0) gm/dl TSH (0.300-4.500) uIu/ml Free T4 (0.8-1.6) ng/dl Urine Color Urine Appearance (Clear) Urine pH (4.5-7.5) Ur Specific Webster (1.000-1.030) Urine Protein (Negative) Urine Glucose (UA) (Negative) Urine Ketones (Negative) Urine Blood (Negative) Urine Nitrite (Negative) Urine Bilirubin (Negative) Urine Urobilinogen (Negative) Ur Leukocyte Esterase (Negative) Urine RBC (0-4) /hpf Urine WBC (0-5) /hpf Ur Epithelial Cells (0-5) /lpf Urine Bacteria (Negative) Hyaline Casts (0-5) /lpf Urine Mucus (None Prsent) Nasal Screen MRSA (PCR) (Negative) Valproic Acid (50-100) mcg/ml Blood Type A Positive Antibody Screen NEGATIVE Crossmatch See Detail Coding Level of Care Code Critical Care ea addt'l 30 min Diagnoses Hemorrhage from wound T14.8XXA Blood transfusion during current hospitalisation Anemia due to blood loss D50.0 Time Spent (min) 120 Comment I have personally spent 120 minutes of critical care time in the direct management of this patient. This is a life/limb threatening event. This includes time spent evaluating patient, direct bedside care, chart review, placing orders, interpretation of diagnostic studies, discussion with consultants, patient, and/or family members regarding treatment decisions, as well as other required patient management activities. This time is exclusive of all separately billable procedures, and teaching time and separate from and in addition to any other critical care service time.
--- NOTE | 2019-09-20 17:51 | XRay Report ---
XR chest 1V portable CLINICAL HISTORY: Respiratory failure. Intubation. COMPARISON STUDY: 09/20/2019 FINDINGS: There is been interval placement of a left subclavian central venous catheter. The tip proj ects over the cavoatrial junction. There is an endotracheal tube positioned 4.7 cm above the jaxon. No pneumothorax is visualized. There are linear basilar opacities consistent with subsegmental atelec tasis[. Loops of bowel beneath the right hemidiaphragm are felt to be secondary to colonic interposit ion IMPRESSION: 1. No evidence of pneumothorax status post placement of a left subclavian central venous catheter. Th e tip projects over the atriocaval junction 2. Endotracheal tube 4.7 cm above the jaxon ACT 112: Negative or not required by law. Electronically signed by: Mike Marino M.D. 09/20/2019 5:49 PM
[2019-09-20 18:14] LABS: Base Excess VBG -7.5 mEq/L; Oxygen Saturation VBG 73.9 %; pH VBG 7.39 (7.36-7.41)
[2019-09-20 18:27] LABS: Albumin Level 1.8 gm/dl (3.4-5.0); Calcium 7.8 mg/dl (8.5-10.1); Est GFR (African American) 80.3; Est GFR (Non-African American) 69.3; Potassium 4.4 mmol/L (3.5-5.1)
[2019-09-20 18:32] LABS: Basophils # (auto) 0.01 K/uL (0-0.2); Basophils % (auto) 0.1 %; Eosinophils # (auto) 0.01 K/uL (0-0.5); Eosinophils % (auto) 0.1 %; Hemoglobin 11.1 g/dL (14.0-18.0); Immature Granulocytes # (auto) 0.05 K/uL (0.00-0.02); Immature Granulocytes % (auto) 0.5 %; Lymphocytes # (auto) 1.29 K/uL (1.2-3.4); Lymphocytes % (auto) 11.6 %; Mean Corpuscular Hemoglobin 30.2 pg (25-34); Mean Corpuscular Hgb Conc 34.7 g/dL (32-36); Mean Platelet Volume 10.2 fL (7.4-10.4); Monocytes # (auto) 0.81 K/uL (0.11-0.59); Monocytes % (auto) 7.3 %; Neutrophils # (auto) 8.92 K/uL (1.4-6.5); Neutrophils % (auto) 80.4 %; Platelet Count 302 K/uL (130-400); RDW Coefficient of Variation 14.4 % (11.5-14.5); RDW Standard Deviation 45.7 fL (36.4-46.3); Red Blood Count 3.68 M/uL (4.7-6.1); White Blood Count 11.09 K/uL (4.8-10.8)
--- NOTE | 2019-09-20 18:37 | Discharge Summary ---
Date of Service September 20, 2019 Admission HPI Per Admitting Provider History obtained from patient, family, and records. Limited history from patient secondary to psychosis. 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 difficile, chronic decubitus wounds, hx osteomyelitis of the right hip status post surgery, hypothyroidism, chronic pain on narcotics, history of MRSA as per records, past tobacco abuse. Recent confinement July 31, 2019 to August 16, 2019 for encephalopathy secondary to sepsis secondary to complicated UTI. Patient completed Zerbaxa Rx inpatient. Patient subsequent discharge back to [facility]. Patient noted to have bleeding from left groin wound last night. Patient unable to answer questions regarding chest pain, S OB, cough, abdominal pain. Patient supposed to be evaluated by wound care center next week as per brother. At the ER, SBP noted to be 70s to 80s at some point. IVF bolus given at the ER. 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 Dressing left lower extremity NEUROLOGIC : Disoriented, incoherent, no other gross focality Principal Diagnosis L groin bleed (branch of left femoral artery) Discharge Exam GENERAL: sedated intubated elderly thin male HEENT: NC/AT,dry buccal mucosa NECK: short neck CHEST : central line (left subclavian) placed HEART : RRR , no obvious murmurs ABDOMEN: + bowel sounds, mild distention EXTREMITIES : Contracture left lower extremity, significant left groin wound w/ exposed vessel, calves thin, gillis wounds covered w/ gauze SKIN: Pale, warm, multiple large pressure wounds (hip,sacrum, not staged at this time) NEUROLOGIC : sedated, intubated Discharge Data Allergies Allergy/AdvReac Type Severity Reaction Status Date / Time iodine Allergy Unknown Unknown Verified 09/20/19 05:00 onion AdvReac Intermediate vomitting Verified 09/20/19 05:00 Consultations 09/20/19 05:34 ED Decision to Admit Stat 09/20/19 08:46 Consult Infectious Diseases Routine 09/20/19 18:07 Burn CD for patient Stat Ordered Studies 09/20/19 06:48 CT abd pelvis IV con only Urgent FINDINGS: Lower chest: There is a stable 9 mm solid left lingular pulmonary nodule. Dependent airspace opacities are likely atelectatic. Liver: There is mild intrahepatic biliary ductal dilatation. No focal hepatic masses are visualized. Gallbladder: There is gallbladder wall calcification. Spleen: Normal in size and attenuation. Pancreas: Unremarkable. Adrenal glands: There is stable adrenal gland thickening. Kidneys: There is symmetric renal cortical enhancement. The kidneys are normal in size without hydronephrosis. Bowel: There are no transition zones indicate bowel obstruction. There is fecal retention. The rectum measures 9 cm in diameter. There is no evidence of acute diverticulitis. The appendix is not visualized with certainty. There is an indwelling gastrostomy tube. The tip is located at the level of the occipital duodenum. Peritoneum: There is no intraperitoneal free air or abdominal ascites. Vasculature: There is no evidence of abdominal aortic aneurysm. There is an indwelling IVC filter. Adenopathy: None. Pelvic viscera: There is a joint Childs catheter. There is mild prostatomegaly. Skeletal structures: There are chronic destructive changes involving the right hip. There is chronic subluxation of the left hip. IMPRESSION: 1. No evidence of bowel obstruction. No evidence of free air 2. Fecal retention with a distended stool-filled rectum measuring 9 cm in diameter 3. Stable 9 mm solid pulmonary nodule within the lingula 4. Basilar atelectasis 5. No evidence of acute appendicitis. No evidence of acute diverticulitis. 6. Chronic deformities of the hips. 7. Gallbladder wall calcification. Mild intrahepatic biliary ductal dilatation, which remains unchanged. CXR 09/20/2019 IMPRESSION: 1. No evidence of pneumothorax status post placement of a left subclavian central venous catheter. The tip projects over the atriocaval junction 2. Endotracheal tube 4.7 cm above the jaxon Hospital Course (1) Severe sepsis: Left groin wound hemorrhage Per admitting physician: 74 y/o male with medical history significant for CAD/PVD as per records, hypertension, schizoid personality/mood disorder status post ECT, PE DVT s/p IVC filter placement on Eliquis, chronic anemia baseline hemoglobin 9, past history of C. difficile, chronic decubitus wounds, hx osteomyelitis of the right hip status post surgery, hypothyroidism, chronic pain on narcotics, history of MRSA as per records, past tobacco abuse. Recent confinement July 31, 2019 to August 16, 2019 for encephalopathy secondary to sepsis secondary to complicated UTI. Patient completed Zerbaxa Rx inpatient. Patient subsequent discharge back to [facility]. Patient noted to have bleeding from left groin wound last night. Patient unable to answer questions regarding chest pain, S OB, cough, abdominal pain. Patient supposed to be evaluated by wound care center next week as per brother. At the ER, SBP noted to be 70s to 80s at some point. IVF bolus given at the ER. SIRS plus lactic acidosis ? secondary to infected decubitus wounds, L groin wound hx MRSA, hx MDR Pseudomonas on previous cultures Cultures, Daptomycin, Tobramycin for now IVF, follow lactic acid ID consult RE sepsis Left groin bleed hx PE/DVT status post IVC filter placement on Eliquis Hemoglobin at baseline on admission, down to 7.8 on re-check - 1 unit of pRBCs ordered Hold Eliquis given groin bleed Trend H&H, transfuse PRBC if hemoglobin less than 8 and or symptomatic anemia (hx CAD/PVD as per records) CT abdomen pelvis RE groin discomfort/bleed DVT prophylaxis. SCDs while Eliquis on hold Full code as per patient's brother/POA, Mr. Dk Winters (Contact numbers [phone]) On physical exam, with nursing staff present, attempted to examine pt's multiple wounds including the left groin bleed. Pt has severe left lower extremity contracture and so with help of nursing staff attempted to visualize left groin wound. Left groin hemorrhage appeared to be massive and so pressure was applied immediately. Blood transfusion was already ordered for pt's low Hgb. Massive blood transfusion was initiated next. Vascular surgery, general surgery and critical care consulted immediately. Unfortunately, no vascular surgery motion picture printer and general surgeon was in OR at the time and was notified. Kcentra was also ordered and received by the pt. Senior Loan Officer (Dr. Huynh) and anesthesiologist able to intubate/ sedate the pt, and place central line for access. General surgeon (Dr. Josue) and diesel scoop operator (Dr. Huynh) then also managed to control the left groin vascular bleed. In the meantime, pt received 4 units of pRBCs, 2 units of FFP. I contacted pt's brother Dk about the pt's critical condition. Pt will need to be transferred to tertiary medical center with vascular surgery service available, I contacted [facility] in [place]. Dr. Mcgraw (diesel scoop operator) in [place] accepted the pt. The case was also discussed with vascular surgeon Dr. Eli (in [place]). Total Time Total Time Spent Total Time Spent (In Minutes): 40 Total Time Includes: Examination of the Patient, Discharge Planning, Medication Reconciliation and Communication With Other Providers Discharge Plan Discharge Items Patient Disposition: Transfer Acute Care Hospital Reason For Visit: sepsis,hypotension Discharge Diagnosis: L groin bleed (branch of femoral artery) Activity: As commented below Non-emergency contact: Surgeon and Specialist Call non-emergency contact if: you have any medication questions Follow-up/Referrals: Sameera Villa [Primary Care Provider] - Diet: Regular Addtl Attending Provider Instructions: Pt being transferred to [facility] (tertiary medical center). Accepting physician : Dr. Mcgraw (diesel scoop operator). Case discussed with Dr. Mcgraw and Dr. Eli (vascular surgery). Pending Studies at Discharge: No Stand-Alone Forms: My [facility] Skilled Items Patient informed of condition?: No DNR: No Discharge Level of Care: Other Communicable Disease: No Discharge Prognosis: Other Lines: Kang Urinary Catheter: Yes Medications and DC Order Prescriptions: Continued docusate sodium 100 mg Capsule 100 mg PO BID RF: 0 oxycodone 5 mg Tablet 5 mg PO Q6H PRN (Reason: Pain (Scale Score 4-10)) RF: 0 melatonin 3 mg Tablet 3 mg PO HS RF: 0 levothyroxine [Synthroid] 25 mcg tablet 25 mcg PO DAILY RF: 0 folic acid 1 mg Tablet 1 mg PO DAILY RF: 0 fentanyl [Duragesic] 25 mcg/hr patch 72 hour 1 patch topical [id number] RF: 0 acetaminophen [Tylenol] 325 mg Tablet 650 mg PO Q4 MDD 3gm/24hr PRN (Reason: pain 1-3) RF: 0 thiamine HCl (vitamin B1) 100 mg Tablet 100 mg PO DAILY RF: 0 tramadol [Ultram] 50 mg tablet 50 mg PO Q6 PRN (Reason: PAIN 4-10) RF: 0 baclofen 10 mg Tablet 5 mg PO TID RF: 0 divalproex 125 mg capsule, delayed rel sprinkle 500 mg PO BID RF: 0 Eliquis 5 mg tablet 5 mg PO BID RF: 0 risperidone [Risperdal] 0.5 mg Tablet 0.5 mg PO BID RF: 0 Nexium Packet [address] for susp in packet 40 mg PO DAILY RF: 0 protein supplement Liquid 1 ea PO BID RF: 0 Perative 0.067-1.30 gram-kcal/mL Liquid 1 ea feeding tube UD RF: 0 Stress Formula with Zinc Tablet 1 tab PO DAILY RF: 0 acetaminophen 325 mg Tablet 650 mg PO Q6H MDD 3gm/24hr PRN (Reason: temp>101) RF: 0 ferrous sulfate 325 mg (65 mg iron) Tablet 325 mg PO BID RF: 0 metoprolol tartrate 25 mg Tablet 12.5 mg PO BID RF: 0 Discharge Orders: Discharge Order (Routine); Ordered 09/20/19 Ordered By: Montana Lazar Admission Data Admit Date/Time: 09/20/19 07:11 Attending Provider: Montana Lazar Admit Provider: David King Primary Care Provider: Sameera Villa Other Providers: David King ; Zulema Maxwell
[2019-09-20 18:39] LABS: Albumin Globulin Ratio 0.5 (0.9-2); Bilirubin,Total 0.3 mg/dl (0.2-1); Total Protein 5.8 gm/dl (6.4-8.2)
[2019-09-20 18:47] LABS: Fibrinogen 438 mg/dl (184-400); INR 1.1 (0.9-1.1); Partial Thromboplastin Ratio 1.1; Partial Thromboplastin Time 29.9 Seconds (21.0-31.0); Prothrombin Time 11.3 Seconds (9.0-12.0)
[2019-09-20] MEDS ORDERED: PROTHROMBIN COMP CONC- KCENTRA 2,000 UNITS in SYRINGE 0 ML IV STA (19:08)
--- NOTE | 2019-09-20 19:40 | Electrocardiogram Report ---
Test Reason : Blood Pressure : / mmHG Vent. Rate : 107 BPM Atrial Rate : 107 BPM P-R Int : 124 ms QRS Dur : 110 ms QT Int : 354 ms P-R-T Axes : 070 -75 037 degrees QTc Int : 472 ms Poor data quality, interpretation may be adversely affected Sinus tachycardia with Premature atrial complexes with Aberrant conduction Left axis deviation Low voltage QRS Incomplete right bundle branch block Abnormal ECG When compared with ECG of 31-JUL-2019 02:52, Aberrant conduction is now Present Incomplete right bundle branch block has replaced Right bundle branch block Confirmed by Andrea Bustamante ([id number]) on 09/20/2019 7:40:23 PM [facility] Confirmed By:Andrea Bustamante
[2019-09-20] MEDS ORDERED: FERROUS SULFATE 325 MG/7.4 ML UDP PO SCH (21:00)
[2019-09-20] MEDS ORDERED: risperiDONE 1 MG/ML SOLUTION PO SCH (21:00)
[2019-09-20] MEDS ORDERED: DOCUSATE SODIUM SYRUP 100 MG/10 ML UDC PO SCH (21:00)
--- NOTE | 2019-09-24 13:38 | Coding Query ---
CODING QUERY To promote full compliance with coding requirements relating to patient care, provider participation is requested in all cases of remote operations producer uncertainty. Please assist us with the question(s) below: Coding Question(s): This patient came in with a severe hemorrhage and was also documented to be on an anticoagulant and Kcentra was provided. In your clinical opinion was the hemorrhage caused by the anticoagulant? Physician's Response(s): The hemorrhage was caused by poor vasculature, wound w/ exposed blood vessel (not by the anticoagulant), however it was exacerbated by the anticoagulant Thank you Indira Smalls Principal Diagnosis: "that condition established after study, to be chiefly responsible for occasioning the admission of the patient to the hospital for care." Co-Existing Principal Diagnosis: "when two or more diagnoses equally meet the criteria for principal diagnosis as determined by the circumstances of admission, diagnostic work up, and/or therapy provided, and the Alphabetic Index, Tabular List, or another coding guideline does not provide sequencing direction, any one of the diagnoses may be sequenced first." "When the physician has documented what appears to be a current diagnosis in the body of the record, but has not included the diagnosis in the final diagnostic statement, the physician should be asked whether the diagnosis should be added." (Source Coding [facility] 2 QTR90. p3-4) DENG
== END 2019-09-20 19:49 | disposition short-term general hospital (02) | DRG 854 ==
LOC: ED 04:35 → 1E 07:11 → 2E 15:06 → 1E 15:07